=== PATIENT | female | born 1960 | race Hispanic/Latino ===

== ENCOUNTER 2016-10-01 07:38 | Emergency (ER) | payer MEDICAID, MEDICARE ==
--- NOTE | 2016-10-01 08:02 | ED PDOC ---
HPI: SOB/CHF/COPD Time Seen by Provider: 10/01/16 07:44 Chief Complaint (Nursing): Shortness Of Breath History Per: Patient History/Exam Limitations: no limitations Onset/Duration Of Symptoms: Hrs Current Symptoms Are (Timing): Still Present Additional Complaint(s): 56-year-old female, PMHx includes Anemia, Anxiety, Asthma, Bipolar Disorder, Bronchitis, COPD, Depression, HIV, HTN, Paranoia, and Personality Disorder, presents to the emergency department requesting prescription for nebulizer machine. Patient states her mother dropped her nebulizer machine this morning. Patient is speaking in full sentences and has no other complaints at this time. Denies chest pain, cough, palpitations, back pain, dyspnea, swelling in extremities, or any other associated symptoms. No other complaints at this time. Patient has a Hx of multiple visits to ED requesting Rx for Albuterol. Past Medical History Reviewed: Historical Data, Nursing Documentation, Vital Signs Vital Signs: Last Vital Signs Temp 98.2 F 10/01/16 07:46 Pulse 94 H 10/01/16 07:46 Resp 16 10/01/16 08:04 BP 101/60 10/01/16 07:46 Pulse Ox 98 10/01/16 08:12 - Medical History PMH: Anemia, Anxiety, Asthma, Bipolar Disorder, Bronchitis, COPD, Depression, HIV, HTN, Paranoia, Personality Disorder, Seizures - Surgical History Surgical History: Tonsillectomy Denies: Pacemaker - Family History Family History: States: Unknown Family Hx - Immunization History Hx Tetanus Toxoid Vaccination: No Hx Influenza Vaccination: Yes Hx Pneumococcal Vaccination: Yes - Home Medications Home Medications: Ambulatory Orders Medication Instructions Recorded Albuterol/Ipratropium [Duoneb 3 3 ml INH Q12 #0 neb 03/30/16 mg/0.5 mg (3 ml) UD] Emtricitabine/Tenofovir Diso 1 tab PO DAILY #0 tab 03/30/16 [Truvada 200 MG-300 MG] Fluticasone/Salmeterol 250/50 2 puff IH BID #0 puff 03/30/16 [Advair Diskus 250/50] Gabapentin [Neurontin] 600 mg PO TID #0 tab 03/30/16 Albuterol HFA [Ventolin HFA 90 1 puff IH BID PRN #1 unit 12/17/16 mcg/actuation (8 g)] fentaNYL 25 mcg/hr [Duragesic 1 patch TOP DAILY PRN 08/23/16 Patch 25 mcg/hr] Albuterol 0.5% [Albuterol 0.5% 3 ml IH Q4 PRN #60 ml 09/17/16 Inhal Deborah (2.5 mg/0.5 ml) UD] Albuterol HFA [Ventolin HFA 90 1 puff IH ASDIR #1 unit 09/17/16 mcg/actuation (8 g)] Mask, Face [Nebulizer Aerosol Mask 1 dev PO PRN PRN #1 dev 09/17/16 Pediatric] Nebulizer [Mini Plus Nebulizer] 1 each MC ASDIR PRN #1 unit 09/17/16 Albuterol 0.083% [Albuterol 3 ml IH Q8 #1 neb 09/23/16 Sulfate 3 Ml] Non-Formulary 1 ea .ROUTE Q6 #1 ea 09/23/16 Albuterol 0.042% [Albuterol 0.042% 3 ml IH Q6 #1 packet 09/24/16 Inhal Deborah (1.25mg/3ml) UD] Methylprednisolone [Medrol Dose 4 mg PO DAILY #21 mg 09/24/16 Pack (21 tabs)] - Allergies Allergies/Adverse Reactions: Allergies Allergy/AdvReac Type Severity Reaction Status Date / Time Penicillins Allergy pt reports Verified 10/01/16 07:53 seizures Review of Systems ROS Statement: Except As Marked, All Systems Reviewed And Found Negative Constitutional: Negative for: Fever Cardiovascular: Negative for: Chest Pain, Palpitations, Edema, Light Headedness Respiratory: Positive for: Shortness of Breath. Negative for: Cough Gastrointestinal: Negative for: Nausea, Vomiting Musculoskeletal: Negative for: Back Pain Skin: Negative for: Rash Neurological: Negative for: Weakness, Numbness, Headache, Dizziness Physical Exam - Reviewed Nursing Documentation Reviewed: Yes Vital Signs Reviewed: Yes - Physical Exam Appears: Positive for: Non-toxic, No Acute Distress Head Exam: Positive for: ATRAUMATIC, NORMOCEPHALIC Skin: Positive for: Warm, Dry. Negative for: Rash Eye Exam: Positive for: Normal appearance Neck: Positive for: Painless ROM Cardiovascular/Chest: Positive for: Regular Rate, Rhythm Respiratory: Positive for: Normal Breath Sounds, Other (SPEAKING IN FULL SENTENCES.). Negative for: Accessory Muscle Use, Rales, Rhonchi, Wheezing, Respiratory Distress - ECG O2 Sat by Pulse Oximetry: 98 Pulse Ox Interpretation: Normal - Progress ED Course And Treament: 815: Stable. AAOx3. Here for a prescription for a nebulizer. Has no physical complaints. Smiling. Multiple ER visits. Medical Decision Making Medical Decision Making: Prior Visits: Notes and records from previous visits were reviewed. Patient seen in ED on 06/02 for shortness of breath and cough; Patient has been evaluated in ED for same complaint multiple times in the past. Patientd last CXR on 08/26/16 shows COPD w/ no acute disease. Plan: Patient will be discharged home with Rx for Albuterol. Pt is asked to return immediately for any new or worsening symptoms immediately. Patients lungs are CTA B/L, she appears in no distress. Agreeable with plan to discharge. Scribe Attestation: Documented by Ramsey Chatman acting as a scribe for Gavin Damon MD. Provider Attestation: All medical record entries made by the Scribe were at my direction and personally dictated by me. I have reviewed the chart and agree that the record accurately reflects my personal performance of the history, physical exam, medical decision making, and the department course for this patient. I have also personally directed, reviewed, and agree with the discharge instructions and disposition. Disposition - Clinical Impression Clinical Impression: Medication refill - Disposition Referrals: [facility] [Outside] Disposition Time: 08:16 Condition: STABLE Additional Instructions: Return if not better in 3 days. Instructions: Medicine Refill (ED)
[2016-10-01 08:04] VITALS: BP 101/60; PULSE 94; TEMP 98.2; O2SAT 98; BMI 20.9
[2016-10-01 08:07] VITALS: RESP 16
== END 2016-10-01 08:21 | disposition home or self-care (01) ==
LOC: H.ER 07:38
DX: Z76.0 Encounter for issue of repeat prescription (principal); I10 Essential (primary) hypertension; J44.9 Chronic obstructive pulmonary disease, unspecified; Z88.0 Allergy status to penicillin

== ENCOUNTER 2016-12-23 05:25 | Emergency (ER) | payer MEDICARE, MEDICAID ==
[2016-12-23 05:38] VITALS: BMI 23.3
[2016-12-23 05:40] VITALS: BP 111/52; PULSE 127; TEMP 98.1
[2016-12-23] MEDS ORDERED: Albuterol-Ipratrop 3 mg / 0.5 (3 ml) UD INH STA (05:52)
[2016-12-23] MEDS ORDERED: Albuterol-Ipratrop 3 mg / 0.5 (3 ml) UD ONE (05:52)
--- NOTE | 2016-12-23 05:59 | ED PDOC ---
HPI: Asthma Time Seen by Provider: 12/23/16 05:37 Chief Complaint (Nursing): Chest Pain Chief Complaint (Provider): Asthma History Per: Patient History/Exam Limitations: no limitations Onset/Duration Of Symptoms: Hrs (since last night) Current Symptoms Are (Timing): Still Present Associated Symptoms: Cough Additional Complaint(s): 56 year old female presents to ED with complaints of asthma and a past medical history of asthma, HTN, and an extensive psychiatric history. Describes mild cough and wheeze since last night. Confirms that she has an inhaler but requests nebulizer treatment. (-) fever, vomiting, diarrhea, or chest pain. Patient is well known to ED for the same complaint. PCP: Carlo Rogers Past Medical History Reviewed: Historical Data, Nursing Documentation, Vital Signs Vital Signs: Last Vital Signs Temp 98.1 F 12/23/16 05:38 Pulse 127 H 12/23/16 05:38 Resp 17 12/23/16 05:38 BP 111/52 L 12/23/16 05:38 Pulse Ox 98 12/23/16 05:38 - Medical History PMH: Anemia, Anxiety, Asthma, Bipolar Disorder, Bronchitis, COPD, Depression, HIV, HTN, Paranoia, Personality Disorder, Seizures Denies: Atrial Fibrillation, Cardia Arrhythmia, CHF, Diabetes, Emphysema, Hepatitis, Hypercholesterolemia, Mitral Valve Prolapse, Peripheral Edema, Pneumonia, Pulmonary Embolism, Chronic Kidney Disease, Sickle Cell Disease, Sexually Transmitted Disease, Sleep Apnea, TIA - Surgical History Surgical History: Tonsillectomy Denies: No Surg Hx, Pacemaker - Family History Family History: States: Unknown Family Hx - Social History Current smoker - smoking cessation education provided: No Ex-Smoker (has not smoked in the last 12 months): No Alcohol: None Drugs: Denies - Immunization History Hx Tetanus Toxoid Vaccination: No Hx Influenza Vaccination: Yes Hx Pneumococcal Vaccination: Yes - Home Medications Home Medications: Ambulatory Orders Medication Instructions Recorded Albuterol/Ipratropium [Duoneb 3 3 ml INH Q12 #0 neb 03/30/16 mg/0.5 mg (3 ml) UD] Emtricitabine/Tenofovir Diso 1 tab PO DAILY #0 tab 03/30/16 [Truvada 200 MG-300 MG] Fluticasone/Salmeterol 250/50 2 puff IH BID #0 puff 03/30/16 [Advair Diskus 250/50] Gabapentin [Neurontin] 600 mg PO TID #0 tab 03/30/16 Albuterol HFA [Ventolin HFA 90 1 puff IH BID PRN #1 unit 07/02/16 mcg/actuation (8 g)] fentaNYL 25 mcg/hr [Duragesic 1 patch TOP DAILY PRN 08/23/16 Patch 25 mcg/hr] Albuterol 0.5% [Albuterol 0.5% 3 ml IH Q4 PRN #60 ml 09/17/16 Inhal Deborah (2.5 mg/0.5 ml) UD] Albuterol HFA [Ventolin HFA 90 1 puff IH ASDIR #1 unit 09/17/16 mcg/actuation (8 g)] Mask, Face [Nebulizer Aerosol Mask 1 dev PO PRN PRN #1 dev 09/17/16 Pediatric] Nebulizer [Mini Plus Nebulizer] 1 each MC ASDIR PRN #1 unit 09/17/16 Albuterol 0.083% [Albuterol 3 ml IH Q8 #1 neb 09/23/16 Sulfate 3 Ml] Non-Formulary 1 ea .ROUTE Q6 #1 ea 09/23/16 Albuterol 0.042% [Albuterol 0.042% 3 ml IH Q6 #1 packet 09/24/16 Inhal Deborah (1.25mg/3ml) UD] Methylprednisolone [Medrol Dose 4 mg PO DAILY #21 mg 09/24/16 Pack (21 tabs)] - Allergies Allergies/Adverse Reactions: Allergies Allergy/AdvReac Type Severity Reaction Status Date / Time Penicillins Allergy pt reports Verified 12/23/16 05:37 seizures Review of Systems ROS Statement: Except As Marked, All Systems Reviewed And Found Negative Respiratory: Positive for: Cough, Shortness of Breath, Wheezing Physical Exam - Reviewed Nursing Documentation Reviewed: Yes Vital Signs Reviewed: Yes - Physical Exam Appears: Positive for: Non-toxic, No Acute Distress Skin: Positive for: Normal Color, Warm, Dry Eye Exam: Positive for: Normal appearance ENT: Positive for: Normal ENT Inspection Cardiovascular/Chest: Positive for: Regular Rate, Rhythm. Negative for: Murmur Respiratory: Positive for: Normal Breath Sounds. Negative for: Respiratory Distress Extremity: Negative for: Deformity Neurologic/Psych: Positive for: Alert, Oriented. Negative for: Motor/Sensory Deficits - ECG O2 Sat by Pulse Oximetry: 98 (RA) Pulse Ox Interpretation: Normal Medical Decision Making Medical Decision Makin Initial impression: wheeze with normal exam Initial plan: * Duonebs 3mL INH * Peak flow pre/post tx Scribe Attestation: Documented by Yulisa Paredes acting as a scribe for Meño Lazar MD. Scribe Attestation: All medical record entries made by the Scribe were at my direction and personally dictated by me. I have reviewed the chart and agree that the record accurately reflects my personal performance of the history, physical exam, medical decision making, and the department course for this patient. I have also personally directed, reviewed, and agree with the discharge instructions and disposition. Disposition - Clinical Impression Clinical Impression: Asthma - Disposition Referrals: Carlo Rogers APN [Primary Care Provider] - Disposition: Routine/Home Disposition Time: 06:10 Condition: STABLE Instructions: Asthma (ED)
[2016-12-23 06:17] VITALS: RESP 16
[2016-12-23 06:54] VITALS: O2SAT 98
--- NOTE | 2016-12-23 14:38 | CARD ---
APPROVED REPORT EKG Measurement Heart [id number] <Conclusion> Sinus tachycardia Otherwise normal ECG
== END 2016-12-23 06:16 | disposition home or self-care (01) ==
LOC: H.ER 05:25
DX: J45.909 Unspecified asthma, uncomplicated (principal); R06.2 Wheezing

== ENCOUNTER 2016-12-26 08:32 | Emergency (ER) | payer MEDICARE, MEDICAID ==
[2016-12-26 08:35] VITALS: BMI 23.3
[2016-12-26 08:43] VITALS: RESP 20; O2SAT 98
[2016-12-26 09:28] VITALS: BP 128/78; PULSE 78; TEMP 97.5
--- NOTE | 2016-12-26 09:33 | ED PDOC ---
HPI: General Adult Time Seen by Provider: 12/26/16 09:11 Chief Complaint (Nursing): Shortness Of Breath Chief Complaint (Provider): sore throat History Per: Patient History/Exam Limitations: no limitations Onset/Duration Of Symptoms: Days (x 3) Have you had recent travel within the past 21 days to any of the following countries: [place], [place], [place] or [place]?: No Additional Complaint(s): Tanya Kilgore is a 56 year old female, with a previous medical history of schizophrenia and HIV, who presents to the ED with complaints of a sore throat associated with a white coating on her tongue ongoing for 3 days. Patient denies any fevers. She reports pain when swallowing but is tolerating PO intake both solids and liquids. She denies any other medical complaints at this time. PMD: none provided Past Medical History Reviewed: Historical Data, Nursing Documentation, Vital Signs Vital Signs: Last Vital Signs Temp 97.5 F L 12/26/16 09:27 Pulse 78 12/26/16 09:27 Resp 20 12/26/16 09:27 BP 128/78 12/26/16 09:27 Pulse Ox 98 12/26/16 09:36 - Medical History PMH: Anemia, Anxiety, Asthma, Bipolar Disorder, Bronchitis, COPD, Depression, HIV, HTN, Paranoia, Personality Disorder, Seizures Denies: Atrial Fibrillation, Cardia Arrhythmia, CHF, Diabetes, Emphysema, Hepatitis, Hypercholesterolemia, Mitral Valve Prolapse, Peripheral Edema, Pneumonia, Pulmonary Embolism, Chronic Kidney Disease, Sickle Cell Disease, Sexually Transmitted Disease, Sleep Apnea, TIA - Surgical History Surgical History: Tonsillectomy Denies: Pacemaker - Family History Family History: States: Unknown Family Hx - Immunization History Hx Tetanus Toxoid Vaccination: No Hx Influenza Vaccination: Yes Hx Pneumococcal Vaccination: Yes - Home Medications Home Medications: Ambulatory Orders Medication Instructions Recorded Albuterol/Ipratropium [Duoneb 3 3 ml INH Q12 #0 neb 03/30/16 mg/0.5 mg (3 ml) UD] Emtricitabine/Tenofovir Diso 1 tab PO DAILY #0 tab 03/30/16 [Truvada 200 MG-300 MG] Fluticasone/Salmeterol 250/50 2 puff IH BID #0 puff 03/30/16 [Advair Diskus 250/50] Gabapentin [Neurontin] 600 mg PO TID #0 tab 03/30/16 Albuterol HFA [Ventolin HFA 90 1 puff IH BID PRN #1 unit 07/02/16 mcg/actuation (8 g)] fentaNYL 25 mcg/hr [Duragesic 1 patch TOP DAILY PRN 08/23/16 Patch 25 mcg/hr] Albuterol 0.5% [Albuterol 0.5% 3 ml IH Q4 PRN #60 ml 09/17/16 Inhal Deborah (2.5 mg/0.5 ml) UD] Albuterol HFA [Ventolin HFA 90 1 puff IH ASDIR #1 unit 09/17/16 mcg/actuation (8 g)] Mask, Face [Nebulizer Aerosol Mask 1 dev PO PRN PRN #1 dev 09/17/16 Pediatric] Nebulizer [Mini Plus Nebulizer] 1 each MC ASDIR PRN #1 unit 09/17/16 Albuterol 0.083% [Albuterol 3 ml IH Q8 #1 neb 09/23/16 Sulfate 3 Ml] Non-Formulary 1 ea .ROUTE Q6 #1 ea 09/23/16 Albuterol 0.042% [Albuterol 0.042% 3 ml IH Q6 #1 packet 09/24/16 Inhal Deborah (1.25mg/3ml) UD] Methylprednisolone [Medrol Dose 4 mg PO DAILY #21 mg 09/24/16 Pack (21 tabs)] Fluconazole [Diflucan] 100 mg PO DAILY #14 tab 12/26/16 - Allergies Allergies/Adverse Reactions: Allergies Allergy/AdvReac Type Severity Reaction Status Date / Time Penicillins Allergy pt reports Verified 12/26/16 08:41 seizures Review of Systems ROS Statement: Except As Marked, All Systems Reviewed And Found Negative Constitutional: Negative for: Fever ENT: Positive for: Throat Pain, Other (white coating on tongue) Physical Exam - Reviewed Nursing Documentation Reviewed: Yes Vital Signs Reviewed: Yes - Physical Exam Appears: Positive for: Well, Non-toxic, No Acute Distress Skin: Positive for: Normal Color, Warm, Dry ENT: Positive for: Other (white coating on tongue but no on pharynx ). Negative for: Pharyngeal Erythema, Tonsillar Exudate, Tonsillar Swelling Cardiovascular/Chest: Positive for: Regular Rate, Rhythm Respiratory: Positive for: CNT, Normal Breath Sounds Neurologic/Psych: Positive for: Alert, Oriented - ECG O2 Sat by Pulse Oximetry: 98 (RA) Pulse Ox Interpretation: Normal Medical Decision Making Medical Decision Making: Initial Impression: Candidiasis in Mouth Initial Plan: * physical exam * disposition Scribe Attestation: Documented by Karina Roper, acting as a scribe for Demian Knight MD. Provider Scribe Attestation: All medical record entries made by the Scribe were at my direction and personally dictated by me. I have reviewed the chart and agree that the record accurately reflects my personal performance of the history, physical exam, medical decision making, and the department course for this patient. I have also personally directed, reviewed, and agree with the discharge instructions and disposition. Disposition - Clinical Impression Clinical Impression: Candidiasis of mouth - Patient ED Disposition Is Patient to be Admitted: No Counseled Patient/Family Regarding: Diagnosis, Need For Followup, Rx Given - Disposition Referrals: [facility] [Outside] Disposition: Routine/Home Disposition Time: 09:40 Condition: FAIR Prescriptions: Fluconazole [Diflucan] 100 mg PO DAILY #14 tab Instructions: Oral Candidiasis (ED)
== END 2016-12-26 09:28 | disposition home or self-care (01) ==
LOC: H.ER 08:32
DX: B37.0 Candidal stomatitis (principal); B20 Human immunodeficiency virus [HIV] disease; F20.9 Schizophrenia, unspecified

== ENCOUNTER 2017-02-21 12:17 | Inpatient (IN) | payer MEDICARE, MEDICAID ==
[2017-02-21 12:17] VITALS: BMI 23.3
--- NOTE | 2017-02-21 12:39 | ED PDOC ---
HPI: Psych/Substance Abuse Time Seen by Provider: 02/21/17 12:28 Chief Complaint (Nursing): Psychiatric Evaluation Chief Complaint (Provider): Psychiatric Evaluation History Per: Patient History/Exam Limitations: no limitations Onset/Duration Of Symptoms: Days (x2) Associated Symptoms: Depression, Suicidal Thoughts, Suicidal Plan (jump in the river) Additional Complaint(s): Tanya Kilgore is a 57 year old female, with a past medical history of depression , who presents to the emergency department complaining of suicidal ideation. Patient states feeling depressed and wanting to jump in the river. She reports having similar symptoms in the past and was recently detoxed and discharged from [facility]. She denies homicidal ideations and hallucinations. PMD: Carlo Rogers Past Medical History Reviewed: Historical Data, Nursing Documentation, Vital Signs Vital Signs: Last Vital Signs Temp 97 F L 02/21/17 12:22 Pulse 98 H 02/21/17 12:22 Resp 18 02/21/17 12:22 BP 128/84 02/21/17 12:22 Pulse Ox 99 02/21/17 12:22 - Medical History PMH: Anemia, Anxiety, Asthma, Bipolar Disorder, Bronchitis, COPD, Depression, HIV, HTN, Mitral Valve Prolapse, Paranoia, Personality Disorder, Seizures ( withdral induced) Denies: Atrial Fibrillation, Cardia Arrhythmia, CHF, Diabetes, Emphysema, Hepatitis, Hypercholesterolemia, Peripheral Edema, Pneumonia, Pulmonary Embolism , Chronic Kidney Disease, Sickle Cell Disease, Sexually Transmitted Disease, Sleep Apnea, TIA - Surgical History Surgical History: Tonsillectomy Denies: Pacemaker - Family History Family History: States: Unknown Family Hx - Immunization History Hx Tetanus Toxoid Vaccination: Yes Hx Influenza Vaccination: Yes Hx Pneumococcal Vaccination: Yes - Home Medications Home Medications: Ambulatory Orders Medication Instructions Recorded QUEtiapine [SEROquel] 300 mg PO HS 02/11/17 QUEtiapine [Seroquel] 100 mg PO DAILY #30 tab 02/21/17 QUEtiapine [Seroquel] 200 mg PO HS #30 tab 02/21/17 Sertraline [Zoloft] 100 mg PO DAILY #30 tab 02/21/17 - Allergies Allergies/Adverse Reactions: Allergies Allergy/AdvReac Type Severity Reaction Status Date / Time Penicillins Allergy pt reports Verified 02/11/17 12:23 seizures Review of Systems ROS Statement: Except As Marked, All Systems Reviewed And Found Negative Psych: Positive for: Depression, Suicidal ideation (Planned to jump in the river ). Negative for: Other (Homicidal ideation and hallucination) Physical Exam - Reviewed Nursing Documentation Reviewed: Yes Vital Signs Reviewed: Yes - Physical Exam Appears: Positive for: Well, Non-toxic, No Acute Distress Head Exam: Positive for: ATRAUMATIC, NORMAL INSPECTION, NORMOCEPHALIC Skin: Positive for: Normal Color, Warm, Dry Eye Exam: Positive for: EOMI, Normal appearance, PERRL ENT: Positive for: Normal ENT Inspection Cardiovascular/Chest: Positive for: Regular Rate, Rhythm Respiratory: Positive for: Normal Breath Sounds. Negative for: Respiratory Distress Gastrointestinal/Abdominal: Positive for: Normal Exam, Bowel Sounds, Soft Extremity: Positive for: Normal ROM Neurologic/Psych: Positive for: Alert, Oriented - Laboratory Results Result Diagrams: 02/21/17 15:15 02/21/17 15:15 - ECG O2 Sat by Pulse Oximetry: 99 (RA) Pulse Ox Interpretation: Normal Medical Decision Making Medical Decision Making: Initial Impression: Psychiatric Evaluation Initial Plan: --Crisis Evaluation --1:1 Obs for Suicide precaution --reevaluation pt will be admitted for depression under MD Etienne. Scribe Attestation: Documented by Wilder Chen, acting as a scribe for Alba SEGOVIA. Provider Scribe Attestation: All medical record entries made by the Scribe were at my direction and personally dictated by me. I have reviewed the chart and agree that the record accurately reflects my personal performance of the history, physical exam, medical decision making, and the department course for this patient. I have also personally directed, reviewed, and agree with the discharge instructions and disposition. Disposition - Clinical Impression Clinical Impression: Depression - Patient ED Disposition Is Patient to be Admitted: Yes - Disposition Disposition Time: 15:54 Condition: STABLE Forms: [employer]) - Pt Status Changed To: Hospital Disposition Of: Inpatient - Admit Certification Admit to Inpatient:: After my assessment, the patient will require hospitalization for at least two midnights. This is because of the severity of symptoms shown, intensity of services needed, and/or the medical risk in this patient being treated as an outpatient.
[2017-02-21 14:04] LABS: RBC URINE 6 /hpf (0-3); URINE BACTERIA RARE (<OCC); URINE BILIRUBIN NEGATIVE (NEGATIVE); URINE BLOOD NEGATIVE (NEGATIVE); URINE COLOR YELLOW (YELLOW); URINE GLUCOSE (UA) NEG (Normal); URINE KETONE NEGATIVE (NEGATIVE); URINE LEUKOCYTE ESTERASE TRACE Leu/uL (Negative); URINE PROTEIN NEGATIVE (NEGATIVE); URINE UROBILINOGEN 0.2-1.0 mg/dL (0.2-1.0); WBC URINE 4 /hpf (0-5)
[2017-02-21 15:34] LABS: EOS % 0.7 % (0.0-4.0); HEMATOCRIT 38.8 % (34.0-47.0); LYMPH # 1.1 K/uL (1.0-4.3); LYMPH % 28.8 % (20.0-40.0); MEAN CORPUSCULAR HEMOGLOBIN 28.1 pg (27.0-31.0); MEAN CORPUSCULAR HGB CONC 33.3 g/dL (33.0-37.0); MEAN PLATELET VOLUME 10.1 fl (7.2-11.7); MONO # 0.5 K/uL (0.0-0.8); NEUT # 2.3 K/uL (1.8-7.0); NEUT % 57.5 % (50.0-75.0); NRBC % 0.3 % (0.0-0.0); RED CELL DISTRIBUTION WIDTH 15.9 % (11.5-14.5); WHITE BLOOD COUNT 3.9 K/uL (4.8-10.8)
[2017-02-21 15:36] LABS: ALB/GLOB RATIO 0.9 (1.0-2.1); ALCOHOL SERUM < 10 mg/dl (0-10); ALKALINE PHOSPHATASE 78 U/L (38-126); ALT/SGPT 49 U/L (9-52); AST/SGOT 38 U/L (14-36); BILIRUBIN,TOTAL 0.3 mg/dl (0.2-1.3); BLOOD UREA NITROGEN 18 mg/dl (7-17); CALCIUM 9.3 mg/dL (8.4-10.2); CARBON DIOXIDE 28 mmol/L (22-30); CHLORIDE 106 mmol/L (98-107); GFR AFRICAN-AMERICAN > 60; GLUCOSE,RANDOM 91 mg/dL (65-105); MEAN CELL VOLUME 84.4 fl (81.0-99.0); POTASSIUM 4.4 MMOL/L (3.6-5.0); SODIUM 142 mmol/l (132-148); TOTAL PROTEIN 8.1 G/DL (6.3-8.2)
[2017-02-21] MEDS ORDERED: Magnesium Hydroxide Susp 30 ml UD PO PRN (18:22)
[2017-02-21] MEDS ORDERED: DiphenhydrAMINE 50 mg/ml Inj IM PRN (18:29)
--- NOTE | 2017-02-21 20:03 | PCM.BM ---
<Raman Toledo - Last Filed: 02/21/17 20:01> Treatment Plan Problems - Problems identified on initial assessmt Hopelessness/Helplessness Date Initiated: 02/21/17 Time Initiated: 19:45 Assessment reference: NA Status: Active Treatment assets and liabiliti Patient Assests: adapts well, cooperative, self-reliant, good support system, negotiates basic needs Patient Liabilities: substance abuse, medical problems - Milieu Protocol Maintain good personal hygiene: daily Encourage regular showers, daily Remind patient to perform daily oral care, daily Assist patient to perform ADL's Maintain personal safety: every shift Educate patient to report safety concerns to staff, every shift Monitor environment for contraband/sharps Medication safety: Monitor for expected outcome, potential side effects: every shift, Assess barriers to learning: every shift, Assess readiness for medication education: every shift Discharge/Continuing Care - Education Needs Education Needs: Patient Medication, Patient Diagnosis/Disease Process, Patient Coping Skills, Patient Activities of Daily Living, Patient Health Practices/ Safety, Patient Personal Hygiene/Grooming - Discharge Discharge Criteria: Free of Suicidal thoughts, Ability to care for self <JonoChrissie - Last Filed: 02/23/17 11:19> Treatment Plan Problems - Problems identified on initial assessmt Hopelessness/Helplessness Assessment reference: NA Status: Active Priority: 1 Suicidal Ideations Date Initiated: 02/22/17 Time Initiated: 11:00 Assessment reference: SW Status: Active Priority: 2 Treatment assets and liabiliti Patient Assests: adapts well, cooperative, self-reliant, good support system, negotiates basic needs, strong gregory Patient Liabilities: substance abuse, medical problems Family Contact Family involvement: Family/SO is involved Family contact: Patient agrees to contact Family contact name: Carlo(father)([phone]) Family contacted how many times per week?: 1 Family contact comment: Patient identifies parents as primary supports. Patient has provided consent for parents. Bilingual Hr Generalist placed call to patients father to provide clinical updates regarding progress on 3NP, discharge planning and aftercare. Bilingual Hr Generalist unable to leave voicemail and will make call at later time. - Outside Agency Agency 1 Care involvment: Information-sharing, Other (Patient currently requesting inpatient rehab referrals. Patient expressed understanding that a bed is not guaranteed and that alternate [facility]I referrals might be necessary at discharge.) Agency contact name: Patient has significant hx of partial hospital with [facility] and [facility] Maureen Avila. Patient currently not welcome to return to [facility] secondary to hx of noncompliance. Patient must be referred to [facility] by [facility] Maureen Avila after complying for 1 month and having a clean urine 3 consecutive times. Agency contact number: [phone] Discharge/Continuing Care - Education Needs Education Needs: Family Medication, Family Community resources, Patient Medication, Patient Coping Skills, Patient Anger Management skills, Patient Community resources - Discharge Discharge Criteria: Tolerates medication w/o severe side effects, Free of Suicidal thoughts, Free of Homicidal thoughts, Free of agitation, Normal sleep pattern, Ability to care for self
--- NOTE | 2017-02-21 20:16 | CP.PCM.CON ---
History of Present Illness - History of Present Illness History of Present Illness: 57 y/o F with PMH including HTN, Intermittent Asthma, HIV (last CD4 count 469 on 08/18/16), Chronic HCV admitted to inpatient psychiatric unit for depression and suicidal ideation. Patient states she was last seen by her PCP approximately 5 months ago. Over the last 3 months patient reports not taking any of her prescribed HIV, HTN or Asthma medications. She reports stopping her BP meds due to persistent systolic BP measurements in the 90s. She also reports no need for her scheduled inhaler or rescue inhaler during this period. Patient currently denies fevers, chills, chest pain, sob, abdominal pain, nausea or vomiting. 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 PMD: [facility] Review of Systems - Review of Systems All systems: reviewed and no additional remarkable complaints except Past Patient History - Infectious Disease Hx of Infectious Diseases: None - Past Medical History & Family History Past Medical History?: Yes - Past Social History Smoking Status: Light Smoker < 10 Cigarettes Daily Alcohol: None Drugs: Opiates (Recently completed detox) - CARDIAC Hx Atrial Fibrillation: No Hx Cardia Arrhythmia: No Hx Congestive Heart Failure: No Hx Hypercholesterolemia: No Hx Hypertension: Yes Hx Mitral Valve Prolapse: Yes Hx Pacemaker: No Hx Peripheral Edema: No - PULMONARY Hx Asthma: Yes Hx Bronchitis: Yes Hx Chronic Obstructive Pulmonary Disease (COPD): Yes Hx Emphysema: No Hx Pneumonia: No Hx Pulmonary Embolism: No Hx Sleep Apnea: No - NEUROLOGICAL Hx Seizures: Yes (withdral induced) Hx Transient Ischemic Attacks (TIA): No - HEENT Hx HEENT Problems: No - RENAL Hx Chronic Kidney Disease: No - ENDOCRINE/METABOLIC Hx Endocrine Disorders: No - HEMATOLOGICAL/ONCOLOGICAL Hx Anemia: Yes Hx Hepatitis C: Yes Hx Human Immunodeficiency Virus (HIV): Yes Hx Sickle Cell Disease: No - INTEGUMENTARY Hx Dermatological Problems: No - MUSCULOSKELETAL/RHEUMATOLOGICAL Hx Musculoskeletal Disorders: No - GASTROINTESTINAL Hx Gastrointestinal Disorders: No - GENITOURINARY/GYNECOLOGICAL Hx Sexually Transmitted Disorders: No - PSYCHIATRIC Hx Depression: Yes Hx Substance Use: Yes (heroin) - SURGICAL HISTORY Hx Tonsillectomy: Yes - ANESTHESIA Hx Anesthesia: Yes Hx Anesthesia Reactions: No Meds Allergies/Adverse Reactions: Allergies Allergy/AdvReac Type Severity Reaction Status Date / Time Penicillins Allergy pt reports Verified 02/11/17 12:23 seizures - Medications Medications: Current Medications Albuterol (Ventolin Hfa 90 Mcg/Actuation (8 G)) 2 puff IH Q4H PRN PRN Reason: Shortness of Breath Diphenhydramine HCl (Benadryl) 50 mg PO Q6 PRN PRN Reason: Extrapyramidal Symptoms Diphenhydramine HCl (Benadryl) 50 mg IM Q6 PRN PRN Reason: Agitation Gabapentin (Neurontin) 100 mg PO TID FAY Haloperidol (Haldol) 5 mg PO Q4 PRN PRN Reason: Agitation Haloperidol Lactate (Haldol) 5 mg IM Q4 PRN PRN Reason: Agitation, Unable to Take PO Ibuprofen (Motrin Tab) 600 mg PO Q6 PRN PRN Reason: Pain, moderate (4-7) Lorazepam (Ativan) 2 mg PO Q4 PRN PRN Reason: Anxiety/Agitation Lorazepam (Ativan) 2 mg IM Q6 PRN PRN Reason: Agitation Magnesium Hydroxide (Milk Of Magnesia) 30 ml PO HS PRN PRN Reason: Constipation Quetiapine Fumarate (Seroquel) 300 mg PO HS FAY Quetiapine Fumarate (Seroquel) 100 mg PO BID FAY Sertraline HCl (Zoloft) 50 mg PO DAILY FAY Valsartan (Diovan) 80 mg PO DAILY FAY Physical Exam - Constitutional Appears: Non-toxic, No Acute Distress - Head Exam Head Exam: ATRAUMATIC, NORMAL INSPECTION, NORMOCEPHALIC - Eye Exam Eye Exam: EOMI, PERRL - ENT Exam ENT Exam: Mucous Membranes Moist - Respiratory Exam Respiratory Exam: Clear to Auscultation Bilateral, NORMAL BREATHING PATTERN. absent: Rales, Rhonchi, Wheezes, Respiratory Distress - Cardiovascular Exam Cardiovascular Exam: REGULAR RHYTHM, RRR, +S1, +S2 - GI/Abdominal Exam GI & Abdominal Exam: Normal Bowel Sounds, Soft. absent: Distended, Guarding, Rebound, Tenderness - Extremities Exam Extremities exam: Positive for: normal capillary refill. Negative for: calf tenderness, pedal edema - Neurological Exam Neurological exam: Alert, CN II-XII Intact, Oriented x3 - Psychiatric Exam Psychiatric exam: Depressed - Skin Skin Exam: Dry, Warm Additional comments: Scattered excoriations present on trunk and extremities Results - Vital Signs Recent Vital Signs: Last Vital Signs Temp 98.7 F 02/21/17 16:34 Pulse 63 02/21/17 16:56 Resp 20 02/21/17 16:56 BP 160/92 H 02/21/17 17:53 Pulse Ox 97 02/21/17 16:28 - Labs Result Diagrams: 02/21/17 15:15 02/21/17 15:15 Assessment & Plan - Assessment and Plan (Free Text) Assessment: 57 y/o F with PMH including HTN, Intermittent Asthma, HIV (last CD4 count 469 on 08/18/16), Chronic HCV admitted to inpatient psychiatric unit for depression and suicidal ideation. Plan: HTN -Uncontrolled at this time -Patient was taking Diovan/HCT 80/12.5mg daily but d/c 3 months ago -Will resume Diovan 80mg and monitor BP -Plan to add HCT 12.5mg daily if needed Intermittent Asthma -Currently well controlled -Has not been taking Advair 250/50 and has not needed her rescue inhaler -Hold Advair -Albuterol PRN HIV (last CD4 count 469 on 08/18/16) -Patient has not been taking medications since at least 3 months -Was taking Truvada daily, will hold for now -Repeat CD4 count and viral load Chronic HCV Depression -Treatment as per psychiatry
[2017-02-21 20:48] LABS: T4 6.45 ug/dl (5.5-11.0)
[2017-02-21 21:02] LABS: THYROID STIMULATING HORMONE 2.8 mIU/ML (0.46-4.68)
--- NOTE | 2017-02-22 10:45 | PCM.PSYCH ---
Initial Psychiatric Evaluation - Initial Psychiatric Evaluation Type of Admission: Voluntary Legal Status: Capacity Chief Complaint (in patient's own words): i am depressed Patient's Reaction to Hospitalization: cooperative History of Present Illness and Precipitating Events: pt discharged from [facility] in the morning and presented at [facility] er later same day. she states she was not sleeping while at the hospital and that she is depressed. she was having thoughts to harm herself. she states she was using 3-4 bags a day of heroin prior to her admission to the [facility]. her urine is positive for methadone. she is denying any withdrawal symptoms. she reports that she needs help with depression and with sleeping. she expresses that she wants to return to the [facility]. Current Medications: Active Medications Generic Name Dose Route Start Last Admin Trade Name Freq PRN Reason Stop Dose Admin Albuterol 2 puff 02/21/17 19:08 Ventolin Hfa 90 Mcg/Actuation (8 G) IH Q4H PRN Shortness of Breath Diphenhydramine HCl 50 mg 02/21/17 18:22 Benadryl PO Q6 PRN Extrapyramidal Symptoms Diphenhydramine HCl 50 mg 02/21/17 18:29 Benadryl IM Q6 PRN Agitation Gabapentin 100 mg 02/22/17 09:00 02/22/17 08:18 Neurontin PO 100 mg TID FAY Administration Haloperidol 5 mg 02/21/17 18:22 Haldol PO Q4 PRN Agitation Haloperidol Lactate 5 mg 02/21/17 18:22 Haldol IM Q4 PRN Agitation, Unable to Take PO Ibuprofen 600 mg 02/21/17 18:31 02/22/17 06:25 Motrin Tab PO 600 mg Q6 PRN Administration Pain, moderate (4-7) Lorazepam 2 mg 02/21/17 18:22 Ativan PO Q4 PRN Anxiety/Agitation Lorazepam 2 mg 02/21/17 18:27 Ativan IM Q6 PRN Agitation Magnesium Hydroxide 30 ml 02/21/17 18:22 Milk Of Magnesia PO HS PRN Constipation Quetiapine Fumarate 300 mg 02/21/17 22:00 02/21/17 21:15 Seroquel PO 300 mg HS FAY Administration Quetiapine Fumarate 100 mg 02/21/17 18:45 02/22/17 08:18 Seroquel PO 100 mg BID FAY Administration Sertraline HCl 50 mg 02/22/17 09:00 02/22/17 08:18 Zoloft PO 50 mg DAILY FAY Administration Valsartan 80 mg 02/21/17 19:12 02/21/17 20:47 Diovan PO 80 mg DAILY FAY Administration Zolpidem Tartrate 5 mg 02/22/17 10:37 Ambien PO HS PRN Insomnia Past Psychiatric History - Past Psychiatric History Previous Treatment History: Inpatient Prior Professional Help: multiple admissions At [facility]: [facility] discharged 8.03.02 History of Abuse: history of trauma History of ETOH/Drug Use: iv heroin abuse. last use over 9 days ago. History of Family Illness: denies Pertinent Medical Hx (Current Medical&Sleep Prob, Allergies): Allergies Allergy/AdvReac Type Severity Reaction Status Date / Time Penicillins Allergy pt reports Verified 02/11/17 12:23 seizures Albuterol HFA [Ventolin HFA 90 mcg/actuation (8 g)] 2 puff IH Q4H PRN 02/21/17 Benztropine [Cogentin] 1 mg PO QAM 02/21/17 Divalproex [Depakote ER] 500 mg PO BID 02/21/17 Emtricitabine/Tenofovir Diso [Truvada 200 MG-300 MG] 1 tab PO DAILY 02/21/17 Fluticasone/Salmeterol 250/50 [Advair Diskus 250/50] 1 puff IH Q12H 02/21/17 Nevirapine [Viramune] 200 mg PO BID 02/21/17 QUEtiapine [Seroquel] 100 mg PO DAILY #30 tab 02/21/17 QUEtiapine [Seroquel] 200 mg PO HS #30 tab 02/21/17 Sertraline [Zoloft] 100 mg PO DAILY #30 tab 02/21/17 Valsartan/Hydrochlorothiazide [Valsartan-Hctz 80-12.5 mg Tab] 1 tab PO DAILY 03/02 pt with hiv, hep c Review of Systems - Psychiatric Psychiatric: As Per HPI Mental Status Examination - Personal Presentation Personal Presentation: Looks older than stated age - Affect Affect: Depressed - Motor Activity Motor Activity: Calm - Reliability in Providing Information Reliability in Providing Information: Fair - Speech Speech: Organized - Mood Mood: Depressed - Formal Thought Process Formal Thought Process: No Impairment - Obsessions/Compulsions Obsessions: No Compulsions: No - Cognitive Functions Orientation: Person, Place, Situation, Time Sensorium: Alert Attention/Concentration: Attentive Abstract Thinking: [place] Estimate of Intelligence: Average Judgement: Intact, as evidence by: Insight regarding need for hospitalization Memory: Recent intact, as evidence by: Ability to recall events of the day, Remote intact, as evidenced by: Abilit to recall sig. life events - Risk Risk: Suicidal (reports suicidal thoughts. denies any intent), Withdrawal, Diminished functioning - Strength & Assets Inventory Strength & Assets Inventory: Intelligence, Family support - Limitations Limitations: Other (medical issues) DSM 5 DX - DSM 5 DSM 5 Diagnosis: opioid dependence bipolar disorder, depressed - Recommended/Plan of Treatment Treatment Recommendations and Plan of Treatment: admit to [facility] for safety and observation gather collateral information provide supportive therapy adjust medications- will restart home meds disposition planning hospitalist consult Projected ELOS: 5-7 days Prognosis: fair - Smoking Cessation Smoking Cessation Initiated: No
[2017-02-23] MEDS ORDERED: Fluticasone-Salmeterol 250-50mcg Diskus IH SCH (00:15)
[2017-02-23] MEDS: Emtricitabine-Tenofovir 200 mg-300 mg Tab PO SCH (08:50)
--- NOTE | 2017-02-23 09:25 | CP.PCM.PN ---
Subjective - Date & Time of Evaluation Date of Evaluation: 02/23/17 Time of Evaluation: 08:00 - Subjective Subjective: Pt. seen in psych [facility] sitting in [facility] area examined in her room. Pt. with no complaints at this time. Overnight uneventful. On ROS, pt. denies any headache, chest pain, abdominal pain, nausea, vomiting, diarrhea, joint pain, or limb pain. Objective - Vital Signs/Intake and Output Vital Signs (last 24 hours): Temp Pulse Resp BP Pulse Ox 97.2 F L 94 H 20 106/75 97 02/23/17 09:11 02/23/17 09:11 02/23/17 09:11 02/23/17 09:11 02/21/17 16:28 - Medications Medications: Current Medications Albuterol (Ventolin Hfa 90 Mcg/Actuation (8 G)) 2 puff IH Q4H PRN PRN Reason: Shortness of Breath Diphenhydramine HCl (Benadryl) 50 mg PO Q6 PRN PRN Reason: Extrapyramidal Symptoms Diphenhydramine HCl (Benadryl) 50 mg IM Q6 PRN PRN Reason: Agitation Emtricitabine/Tenofovir (Truvada 200 Mg-300 Mg) 1 tab PO DAILY [facility] Last Admin: 02/23/17 08:50 Dose: 1 tab Gabapentin (Neurontin) 100 mg PO TID [facility] Last Admin: 02/23/17 08:50 Dose: 100 mg Haloperidol (Haldol) 5 mg PO Q4 PRN PRN Reason: Agitation Haloperidol Lactate (Haldol) 5 mg IM Q4 PRN PRN Reason: Agitation, Unable to Take PO Ibuprofen (Motrin Tab) 600 mg PO Q6 PRN PRN Reason: Pain, moderate (4-7) Last Admin: 02/23/17 06:42 Dose: 600 mg Lorazepam (Ativan) 2 mg PO Q4 PRN PRN Reason: Anxiety/Agitation Lorazepam (Ativan) 2 mg IM Q6 PRN PRN Reason: Agitation Magnesium Hydroxide (Milk Of Magnesia) 30 ml PO HS PRN PRN Reason: Constipation Quetiapine Fumarate (Seroquel) 300 mg PO HS [facility] Last Admin: 02/22/17 21:29 Dose: 300 mg Quetiapine Fumarate (Seroquel) 100 mg PO BID [facility] Last Admin: 02/23/17 08:52 Dose: 100 mg Fluticasone/Salmeterol (Advair Diskus 250/50) 1 puff IH Q12H [facility] Last Admin: 02/23/17 00:15 Dose: Not Given Sertraline HCl (Zoloft) 50 mg PO DAILY [facility] Last Admin: 02/23/17 08:51 Dose: 50 mg Valsartan (Diovan) 80 mg PO DAILY [facility] Last Admin: 02/23/17 08:50 Dose: 80 mg Zolpidem Tartrate (Ambien) 5 mg PO HS PRN PRN Reason: Insomnia Last Admin: 02/22/17 21:29 Dose: 5 mg - Constitutional Appears: Non-toxic, No Acute Distress - Eye Exam Eye Exam: absent: Scleral icterus - ENT Exam ENT Exam: Mucous Membranes Moist - Neck Exam Neck Exam: Full ROM - Respiratory Exam Respiratory Exam: Clear to Ausculation Bilateral, NORMAL BREATHING PATTERN - Cardiovascular Exam Cardiovascular Exam: REGULAR RHYTHM, +S1, +S2 - GI/Abdominal Exam GI & Abdominal Exam: Soft. absent: Tenderness - Extremities Exam Extremities Exam: Normal Inspection. absent: Tenderness - Neurological Exam Neurological Exam: Alert, Awake, Oriented x3 Assessment and Plan - Assessment and Plan (Free Text) Assessment: Assessment: 57 y/o F with PMH including HTN, Intermittent Asthma, HIV (last CD4 count 469 on 08/18/16), Chronic HCV admitted to inpatient psychiatric unit for depression and suicidal ideation. Plan: Depression -Treatment as per psychiatry HTN -Continue Diovan 80mg and monitor BP -Hold HCT 12.5mg daily if needed Intermittent Asthma- Well controlled -Hold Advair -Albuterol PRN HIV- CD4 count 233 on 02/22/17 -Patient has not been taking medications since at least 3 months -Resume Truvada daily Chronic HCV- AST 38 mild elevation - Monitor LFTs Diet - GI diet DVT prophylaxis - ambulate
--- NOTE | 2017-02-23 09:53 | PCM.PYCHPN ---
Psychiatric Progress Note - Psychiatric Progress Note Patient seen today, length of contact: discussed with team Patient Chief Complaint: i have leg pain Problems Identified/Issues Discussed: pt with good sleep. she is c/o neuropathic pain in her legs. she is reporting neurontin doesn't work. she is calm and thoughts are organized. Medication Change: Yes Medical Record Reviewed: Yes Mental Status Examination - Cognitive Function Orientation: Person, Place, Situation, Time Memory: Intact Attention: WNL Concentration: WNL Association: WNL Fund of Knowledge: WNL Decription of patient's judgement and insights: fair i/j - Mood Mood: Depressed - Affect Affect: Blunted, Depressed - Speech Speech: Appropriate - Formal Thought Process Formal Thought Process: No Impairment - Suicidal Ideation Suicidal Ideation: No - Homicidal Ideation Homicidal Ideation: No Goal/Treatment Plan - Goal/Treatment Plan Need for Continued Stay: Remain at risks for inpatient hospitalization, Discharge may exacerbated symptoms Progress Toward Problem(s) and Goals/Treatment Plan: bipolar disorder continue current medications increase neurontin disposition planning Estimated Date of D/C: 02/28/17
[2017-02-24] MEDS: Emtricitabine-Tenofovir 200 mg-300 mg Tab PO SCH (08:43)
[2017-02-24] MEDS: Albuterol HFA 90 mcg/actuation (8 g) IH PRN (08:45)
--- NOTE | 2017-02-24 12:12 | PCM.PYCHPN ---
Psychiatric Progress Note - Psychiatric Progress Note Patient seen today, length of contact: discussed with team Patient Chief Complaint: i feel okay Problems Identified/Issues Discussed: pt with good sleep. she leg pain improving. she is tolerating increase in neurontin. she is calm and thoughts are organized. Medication Change: No Medical Record Reviewed: Yes Mental Status Examination - Cognitive Function Orientation: Person, Place, Situation, Time Memory: Intact Attention: WNL Concentration: WNL Association: WNL Fund of Knowledge: [facility] Decription of patient's judgement and insights: fair i/j - Mood Mood: Depressed - Affect Affect: Blunted, Depressed - Speech Speech: Appropriate - Formal Thought Process Formal Thought Process: No Impairment - Suicidal Ideation Suicidal Ideation: No - Homicidal Ideation Homicidal Ideation: No Goal/Treatment Plan - Goal/Treatment Plan Need for Continued Stay: Remain at risks for inpatient hospitalization, Discharge may exacerbated symptoms Progress Toward Problem(s) and Goals/Treatment Plan: bipolar disorder continue current medications increase neurontin disposition planning- refer to inpt rehab Estimated Date of D/C: 02/28/17
[2017-02-25] MEDS: Emtricitabine-Tenofovir 200 mg-300 mg Tab PO SCH (08:43)
--- NOTE | 2017-02-25 11:28 | PCM.PYCHPN ---
Psychiatric Progress Note - Psychiatric Progress Note Patient seen today, length of contact: discussed with team Patient Chief Complaint: i am doing better Problems Identified/Issues Discussed: pt continues to have improved mood and is in good behavioral control. she is denying medication side effects. Medication Change: No Medical Record Reviewed: Yes Mental Status Examination - Cognitive Function Orientation: Person, Place, Situation, Time Memory: Intact Attention: WNL Concentration: WNL Association: WNL Fund of Knowledge: WNL Decription of patient's judgement and insights: fair i/j - Mood Mood: Depressed - Affect Affect: Blunted, Depressed - Speech Speech: Appropriate - Formal Thought Process Formal Thought Process: No Impairment - Suicidal Ideation Suicidal Ideation: No - Homicidal Ideation Homicidal Ideation: No Goal/Treatment Plan - Goal/Treatment Plan Need for Continued Stay: Remain at risks for inpatient hospitalization, Discharge may exacerbated symptoms Progress Toward Problem(s) and Goals/Treatment Plan: bipolar disorder continue current medications continue neurontin disposition planning- refer to in rehab Estimated Date of D/C: 02/28/17
[2017-02-26] MEDS: Emtricitabine-Tenofovir 200 mg-300 mg Tab PO SCH (09:04)
--- NOTE | 2017-02-26 13:08 | PCM.PYCHPN ---
Psychiatric Progress Note - Psychiatric Progress Note Patient seen today, length of contact: discussed with team Patient Chief Complaint: i am good Problems Identified/Issues Discussed: pt continues to have stable mood and is in good behavioral control. she is denying medication side effects. Medication Change: No Medical Record Reviewed: Yes Mental Status Examination - Cognitive Function Orientation: Person, Place, Situation, Time Memory: Intact Attention: WNL Concentration: WNL Association: WNL Fund of Knowledge: WNL Decription of patient's judgement and insights: fair i/j - Mood Mood: Depressed - Affect Affect: Blunted, Depressed - Speech Speech: Appropriate - Formal Thought Process Formal Thought Process: No Impairment - Suicidal Ideation Suicidal Ideation: No - Homicidal Ideation Homicidal Ideation: No Goal/Treatment Plan - Goal/Treatment Plan Need for Continued Stay: Remain at risks for inpatient hospitalization, Discharge may exacerbated symptoms Progress Toward Problem(s) and Goals/Treatment Plan: bipolar disorder opioid dependence continue current medications continue neurontin disposition planning- refer to in rehab Estimated Date of D/C: 02/28/17
[2017-02-27] MEDS: Emtricitabine-Tenofovir 200 mg-300 mg Tab PO SCH (08:16)
--- NOTE | 2017-02-27 14:36 | PCM.PYCHPN ---
Psychiatric Progress Note - Psychiatric Progress Note Patient seen today, length of contact: discussed with team Patient Chief Complaint: i am anxious Problems Identified/Issues Discussed: pt continues to have stable mood and is in good behavioral control despite c/o anxiety. she is denying medication side effects. states ambien is helping her sleep, but still is asking if higher dose is possible. she is willing to be referred to rehabs. Medication Change: No Medical Record Reviewed: Yes Mental Status Examination - Cognitive Function Orientation: Person, Place, Situation, Time Memory: Intact Attention: WNL Concentration: WNL Association: WNL Fund of Knowledge: WN Decription of patient's judgement and insights: fair i/j - Mood Mood: Depressed - Affect Affect: Blunted, Depressed - Speech Speech: Appropriate - Formal Thought Process Formal Thought Process: No Impairment - Suicidal Ideation Suicidal Ideation: No - Homicidal Ideation Homicidal Ideation: No Goal/Treatment Plan - Goal/Treatment Plan Need for Continued Stay: Remain at risks for inpatient hospitalization, Discharge may exacerbated symptoms Progress Toward Problem(s) and Goals/Treatment Plan: bipolar disorder opioid dependence continue current medications continue neurontin- incrased dose yesterday, have increased zoloft also disposition planning- refer to inpt rehab Estimated Date of D/C: 02/28/17
[2017-02-28] MEDS: Emtricitabine-Tenofovir 200 mg-300 mg Tab PO SCH (08:17)
[2017-02-28] MEDS: Fluticasone-Salmeterol 250-50mcg Diskus IH SCH ×2 (08:17→21:10)
[2017-02-28] MEDS: Albuterol HFA 90 mcg/actuation (8 g) IH PRN ×2 (08:49→13:48)
--- NOTE | 2017-02-28 09:34 | CP.PCM.PN ---
Subjective - Date & Time of Evaluation Date of Evaluation: 02/28/17 Time of Evaluation: 08:30 - Subjective Subjective: Pt. seen today in [facility] getting her vitals taken. Pt. in no distress at this time. On ROS, Pt. denies any headache, chest pain, shortness of breath, abdominal pain, fever, chills, nausea, vomiting, or diarrhea. Objective - Vital Signs/Intake and Output Vital Signs (last 24 hours): Temp Pulse Resp BP Pulse Ox 97.3 F L 104 H 18 121/70 97 02/27/17 17:00 02/27/17 17:00 02/27/17 17:00 02/27/17 17:00 02/21/17 16:28 - Medications Medications: Current Medications Albuterol (Ventolin Hfa 90 Mcg/Actuation (8 G)) 2 puff IH Q4H PRN PRN Reason: Shortness of Breath Last Admin: 02/28/17 08:49 Dose: 2 puff Diphenhydramine HCl (Benadryl) 50 mg PO Q6 PRN PRN Reason: Extrapyramidal Symptoms Diphenhydramine HCl (Benadryl) 50 mg IM Q6 PRN PRN Reason: Agitation Emtricitabine/Tenofovir (Truvada 200 Mg-300 Mg) 1 tab PO DAILY [facility] Last Admin: 02/28/17 08:17 Dose: 1 tab Gabapentin (Neurontin) 400 mg PO TID [facility] Last Admin: 02/28/17 08:17 Dose: 400 mg Haloperidol (Haldol) 5 mg PO Q4 PRN PRN Reason: Agitation Haloperidol Lactate (Haldol) 5 mg IM Q4 PRN PRN Reason: Agitation, Unable to Take PO Ibuprofen (Motrin Tab) 600 mg PO Q6 PRN PRN Reason: Pain, moderate (4-7) Last Admin: 02/27/17 06:08 Dose: 600 mg Lorazepam (Ativan) 2 mg IM Q6 PRN PRN Reason: Agitation Lorazepam (Ativan) 1 mg PO Q6 PRN PRN Reason: Anxiety/Agitation Magnesium Hydroxide (Milk Of Magnesia) 30 ml PO HS PRN PRN Reason: Constipation Quetiapine Fumarate (Seroquel) 300 mg PO HS [facility] Last Admin: 02/27/17 21:24 Dose: 300 mg Quetiapine Fumarate (Seroquel) 100 mg PO BID [facility] Last Admin: 02/28/17 08:17 Dose: 100 mg Fluticasone/Salmeterol (Advair Diskus 250/50) 1 puff IH Q12 [facility] Last Admin: 02/28/17 08:17 Dose: 1 puff Sertraline HCl (Zoloft) 75 mg PO DAILY [facility] Last Admin: 02/28/17 08:16 Dose: 75 mg Valsartan (Diovan) 80 mg PO DAILY [facility] Last Admin: 02/28/17 08:18 Dose: 80 mg Zolpidem Tartrate (Ambien) 5 mg PO HS PRN PRN Reason: Insomnia Last Admin: 02/27/17 21:24 Dose: 5 mg - Constitutional Appears: Non-toxic, No Acute Distress - Respiratory Exam Respiratory Exam: Wheezes (End-insparatory ), NORMAL BREATHING PATTERN. absent : Accessory Muscle Use, Decreased Breath Sounds, Respiratory Distress - Cardiovascular Exam Cardiovascular Exam: REGULAR RHYTHM, +S1, +S2 - GI/Abdominal Exam GI & Abdominal Exam: Soft. absent: Tenderness - Neurological Exam Neurological Exam: Alert, Awake, Oriented x3 - Psychiatric Exam Psychiatric exam: Normal Affect, Normal Mood Assessment and Plan - Assessment and Plan (Free Text) Assessment: 57 y/o F with PMHx including HTN, Intermittent Asthma, HIV (last CD4 count 469 on 08/18/16), Chronic HCV admitted to inpatient psychiatric unit for depression and suicidal ideation. Plan: Depression -Treatment as per psychiatry Suicide Ideation -Treatment as per psychiatry HTN- well controlled -Continue Diovan 80mg and monitor BP Intermittent Asthma- Well controlled -Advair 250/50 Q12 -Albuterol PRN HIV- CD4 count 233 on 02/22/17 -Patient has not been taking medications since at least 3 months -Continue Truvada daily Chronic HCV- Currently asymptomatic - AST 38 - Monitor LFTs Diet - GI diet DVT prophylaxis - ambulate
--- NOTE | 2017-02-28 15:07 | PCM.PYCHPN ---
Psychiatric Progress Note - Psychiatric Progress Note Patient seen today, length of contact: discussed with team Patient Chief Complaint: i am hanging in there doc Problems Identified/Issues Discussed: pt complaining of having uri symptoms. she is less anxious. fair sleep. thoughts remain clear and she wants to work on sobriety. Medication Change: No Medical Record Reviewed: Yes Mental Status Examination - Cognitive Function Orientation: Person, Place, Situation, Time Memory: Intact Attention: WNL Concentration: WNL Association: WNL Fund of Knowledge: WN Decription of patient's judgement and insights: fair i/j - Mood Mood: Depressed - Affect Affect: Blunted, Depressed - Speech Speech: Appropriate - Formal Thought Process Formal Thought Process: No Impairment - Suicidal Ideation Suicidal Ideation: No - Homicidal Ideation Homicidal Ideation: No Goal/Treatment Plan - Goal/Treatment Plan Need for Continued Stay: Remain at risks for inpatient hospitalization, Discharge may exacerbated symptoms Progress Toward Problem(s) and Goals/Treatment Plan: bipolar disorder opioid dependence continue current medications 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
[2017-03-01] MEDS: Albuterol HFA 90 mcg/actuation (8 g) IH PRN (07:30)
[2017-03-01] MEDS: Fluticasone-Salmeterol 250-50mcg Diskus IH SCH ×2 (08:48→21:11)
[2017-03-01] MEDS: Emtricitabine-Tenofovir 200 mg-300 mg Tab PO SCH (08:50)
--- NOTE | 2017-03-01 10:58 | PCM.BM ---
Treatment Plan Problems - Problems identified on initial assessmt Hopelessness/Helplessness Date Initiated: 02/21/17 Time Initiated: 19:45 Assessment reference: NA Status: Active Priority: 1 Depression Date Initiated: 02/22/17 Time Initiated: 11:00 Assessment reference: SW, NA Status: Active Priority: 2 Suicidal Ideations Date Initiated: 02/22/17 Time Initiated: 11:00 Assessment reference: SW Status: Active Priority: 2 Treatment assets and liabiliti Patient Assests: adapts well, cooperative, self-reliant, good support system, negotiates basic needs, strong gregory Patient Liabilities: substance abuse, medical problems - Milieu Protocol Maintain good personal hygiene: daily Encourage regular showers, daily Remind patient to perform daily oral care, daily Assist patient to perform ADL's Maintain personal safety: every shift Educate patient to report safety concerns to staff, every shift Monitor environment for contraband/sharps Medication safety: Monitor for expected outcome, potential side effects: every shift, Assess barriers to learning: every shift, Assess readiness for medication education: every shift Milieu Narrative: bipolar disorder opioid dependence continue current medications medical laboratory manager to monitor her uri disposition planning- refer to inpt rehab Family Contact Family contact: Patient agrees to contact (Patients father to be contacted with clinical updates regarding patients progress on 3NP and discharge plan.) Family contact name: Carlo(father)([phone]) Family contacted how many times per week?: 1 Family contact comment: Patient identifies parents as primary supports. Patient has provided consent for parents. [employer] placed call to patients father to provide clinical updates regarding progress on 3NP, discharge planning and aftercare. [employer] unable to leave voicemail and will make call at later time. - Outside Agency Agency 1 Care involvment: Information-sharing, Other (Patient currently requesting inpatient rehab referrals. Patient expressed understanding that a bed is not guaranteed and that alternate SARI referrals might be necessary at discharge.) Agency contact name: Patient has significant hx of partial hospital with [facility] and [facility] Maureen Avila. Patient currently not welcome to return to [facility] secondary to hx of noncompliance. Patient must be referred to [facility] by [facility] Maureen Avila after complying for 1 month and having a clean urine 3 consecutive times. Agency contact number: [phone] Discharge/Continuing Care - Education Needs Education Needs: Family Medication, Family Community resources, Patient Medication, Patient Diagnosis/Disease Process, Patient Coping Skills, Patient Anger Management skills, Patient Community resources, Patient Activities of Daily Living, Patient Health Practices/Safety, Patient Personal Hygiene/Grooming - Discharge Discharge Criteria: Tolerates medication w/o severe side effects, Free of Suicidal thoughts, Free of Homicidal thoughts, Free of agitation, Normal sleep pattern, Ability to care for self - Treatment Team Participation Patient/Family/SO Statement: bipolar disorder opioid dependence continue current medications medical laboratory manager to monitor her uri disposition planning- refer to in rehab Treatment Plan Review - Problem Hopelessness/Helplessness Time Initiated: 19:45 Depression Time Initiated: 11:00 Suicidal Ideations Time Initiated: 11:00
--- NOTE | 2017-03-01 12:25 | PCM.PYCHPN ---
Psychiatric Progress Note - Psychiatric Progress Note Patient seen today, length of contact: in treatment team Patient Chief Complaint: i feel a little better Problems Identified/Issues Discussed: pt states her mood is improving. she has upper respiratory complaints- cough, etc. she is worried if she is discharged she will use heroin. she is agreeable to rehab referral. Medication Change: Yes Medical Record Reviewed: Yes Mental Status Examination - Cognitive Function Orientation: Person, Place, Situation, Time Memory: Intact Attention: WNL Concentration: WNL Association: WNL Fund of Knowledge: WNL Decription of patient's judgement and insights: fair i/j - Mood Mood: Depressed - Affect Affect: Blunted, Depressed - Speech Speech: Appropriate - Formal Thought Process Formal Thought Process: No Impairment - Suicidal Ideation Suicidal Ideation: No - Homicidal Ideation Homicidal Ideation: No Goal/Treatment Plan - Goal/Treatment Plan Need for Continued Stay: Remain at risks for inpatient hospitalization, Discharge may exacerbated symptoms Progress Toward Problem(s) and Goals/Treatment Plan: bipolar disorder opioid dependence continue current medications- will increase zoloft to 100mg tomorrow medical clerk to monitor her uri disposition planning- refer to inpt rehab Estimated Date of D/C: 02/28/17
--- NOTE | 2017-03-01 15:27 | RAD ---
HISTORY: COMPARISON: 09/23/2016 TECHNIQUE: Chest PA and lateral FINDINGS: LINES AND TUBES: None. LUNG AND PLEURA: The lungs are hyperinflated and there is peribronchial thickening with chronic changes in both lungs. There is no lobar pneumonia. HEART AND MEDIASTINUM: The heart is not enlarged. The hilar and mediastinal contours are within normal limits. SKELETAL STRUCTURES: The bony structures are within normal limits for the patient's age. VISUALIZED UPPER ABDOMEN: Normal. OTHER FINDINGS: None. IMPRESSION: No active pulmonary disease. COPD.
[2017-03-02] MEDS: Albuterol HFA 90 mcg/actuation (8 g) IH PRN (08:50)
[2017-03-02] MEDS: Fluticasone-Salmeterol 250-50mcg Diskus IH SCH ×2 (08:51→21:00)
[2017-03-02] MEDS: Emtricitabine-Tenofovir 200 mg-300 mg Tab PO SCH (08:52)
--- NOTE | 2017-03-02 11:15 | PCM.PYCHPN ---
Psychiatric Progress Note - Psychiatric Progress Note Patient seen today, length of contact: discussed with team Patient Chief Complaint: i feel a little better Problems Identified/Issues Discussed: pt states her mood is improving. she has upper respiratory complaints- cough, etc. she is worried if she is discharged she will use heroin. pt still complaining that her legs are hurting still. she is agreeable to rehab referral. Medication Change: Yes Medical Record Reviewed: Yes Mental Status Examination - Cognitive Function Orientation: Person, Place, Situation, Time Memory: Intact Attention: WNL Concentration: WNL Association: WNL Fund of Knowledge: WNL Decription of patient's judgement and insights: fair i/j - Mood Mood: Depressed - Affect Affect: Blunted, Depressed - Speech Speech: Appropriate - Formal Thought Process Formal Thought Process: No Impairment - Suicidal Ideation Suicidal Ideation: No - Homicidal Ideation Homicidal Ideation: No Goal/Treatment Plan - Goal/Treatment Plan Need for Continued Stay: Remain at risks for inpatient hospitalization, Discharge may exacerbated symptoms Progress Toward Problem(s) and Goals/Treatment Plan: bipolar disorder opioid dependence continue current medications- continue zoloft 100mg increase neurontin medical technologist chemistry to monitor her uri and leg pain disposition planning- refer to inpt rehab Estimated Date of D/C: 02/28/17
[2017-03-02] MEDS: Benzocaine/Menthol (Cepacol) Lozenge PO PRN ×2 (11:24→17:44)
--- NOTE | 2017-03-02 16:29 | CP.PCM.PN ---
Subjective - Date & Time of Evaluation Date of Evaluation: 03/01/17 Time of Evaluation: 10:23 - Subjective Subjective: Patient seen and examined psych lawrence at bedside. Patient in no distress at this time. Complains of nasal congestion and occasional cough. Denies any headache, chest pain, shortness of breath, abdominal pain, fever, chills, nausea, vomiting , or diarrhea. Objective - Vital Signs/Intake and Output Vital Signs (last 24 hours): Temp Pulse Resp BP Pulse Ox 98.1 F 85 18 109/76 97 03/02/17 09:00 03/02/17 09:00 03/02/17 09:00 03/02/17 09:00 02/21/17 16:28 - Medications Medications: Current Medications Albuterol (Ventolin Hfa 90 Mcg/Actuation (8 G)) 2 puff IH Q4H PRN PRN Reason: Shortness of Breath Last Admin: 03/02/17 08:50 Dose: 2 puff Benzocaine/Menthol (Cepacol Sore Throat) 1 candido PO Q2 PRN PRN Reason: Sore Throat Last Admin: 03/02/17 11:24 Dose: 1 candido Diphenhydramine HCl (Benadryl) 50 mg PO Q6 PRN PRN Reason: Extrapyramidal Symptoms Diphenhydramine HCl (Benadryl) 50 mg IM Q6 PRN PRN Reason: Agitation Emtricitabine/Tenofovir (Truvada 200 Mg-300 Mg) 1 tab PO DAILY [facility] Last Admin: 03/02/17 08:52 Dose: 1 tab Gabapentin (Neurontin) 600 mg PO TID [facility] Last Admin: 03/02/17 12:54 Dose: 600 mg Haloperidol (Haldol) 5 mg PO Q4 PRN PRN Reason: Agitation Haloperidol Lactate (Haldol) 5 mg IM Q4 PRN PRN Reason: Agitation, Unable to Take PO Ibuprofen (Motrin Tab) 600 mg PO Q6 PRN PRN Reason: Pain, moderate (4-7) Last Admin: 02/27/17 06:08 Dose: 600 mg Lorazepam (Ativan) 2 mg IM Q6 PRN PRN Reason: Agitation Lorazepam (Ativan) 1 mg PO Q6 PRN PRN Reason: Anxiety/Agitation Magnesium Hydroxide (Milk Of Magnesia) 30 ml PO HS PRN PRN Reason: Constipation Oxymetazoline HCl (Nasal Decongestant 15 Ml) 1 spr NS Q12 PRN PRN Reason: Nasal congestion Last Admin: 03/01/17 17:13 Dose: 1 spr Quetiapine Fumarate (Seroquel) 300 mg PO HS [facility] Last Admin: 03/01/17 21:11 Dose: 300 mg Quetiapine Fumarate (Seroquel) 100 mg PO BID [facility] Last Admin: 03/02/17 08:53 Dose: 100 mg Raltegravir (Isentress) 400 mg PO BID [facility] Last Admin: 03/02/17 08:52 Dose: 400 mg Fluticasone/Salmeterol (Advair Diskus 250/50) 1 puff IH Q12 [facility] Last Admin: 03/02/17 08:51 Dose: 1 puff Sertraline HCl (Zoloft) 100 mg PO DAILY [facility] Last Admin: 03/02/17 08:52 Dose: 100 mg Valsartan (Diovan) 80 mg PO DAILY [facility] Last Admin: 03/02/17 08:53 Dose: 80 mg Zolpidem Tartrate (Ambien) 5 mg PO HS PRN PRN Reason: Insomnia Last Admin: 03/01/17 21:11 Dose: 5 mg - Constitutional Appears: Well, Non-toxic, No Acute Distress - Head Exam Head Exam: ATRAUMATIC, NORMAL INSPECTION, NORMOCEPHALIC - Eye Exam Eye Exam: Normal appearance. absent: Conjunctival injection - ENT Exam ENT Exam: Mucous Membranes Moist, Normal Exam, Normal Oropharynx Additional comments: no sinus tenderness, nasal turbinates bilaterally red/swollen - Neck Exam Neck Exam: Normal Inspection - Respiratory Exam Respiratory Exam: Clear to Ausculation Bilateral, NORMAL BREATHING PATTERN. absent: Decreased Breath Sounds, Rales, Rhonchi, Wheezes - Cardiovascular Exam Cardiovascular Exam: REGULAR RHYTHM, +S1, +S2. absent: Murmur - GI/Abdominal Exam GI & Abdominal Exam: Soft, Normal Bowel Sounds. absent: Tenderness - Extremities Exam Extremities Exam: Normal Inspection - Neurological Exam Neurological Exam: Alert, Awake, Oriented x3 - Psychiatric Exam Psychiatric exam: Normal Affect, Normal Mood - Skin Skin Exam: Dry, Intact, Normal Color, Warm Assessment and Plan - Assessment and Plan (Free Text) Assessment: 57 y/o F with PMHx including HTN, Intermittent Asthma, HIV (last CD4 count 469 on 08/18/16), Chronic HCV admitted to inpatient psychiatric unit for depression and suicidal ideation. Plan: HTN- well controlled -Continue Diovan 80mg and monitor BP Upper Respiratory Infection -Likely viral in nature, no signs of bacterial process at this time -Cepacol PRN -Oxymetazoline PRN -Albuterol PRN Intermittent Asthma- Well controlled -Advair 250/50 Q12 -Albuterol PRN HIV- CD4 count 233 on 02/22/17 -Patient has not been taking medications since at least 3 months -Spoke with primary regarding treatment, will obtain genotype and treat accordingly -Continue Truvada daily -Start Isentress 400mg BID Chronic HCV- Currently asymptomatic - Monitor LFTs Depression -Treatment as per psychiatry Suicide Ideation -Treatment as per psychiatry Diet - GI diet DVT prophylaxis - ambulate
[2017-03-03] MEDS: Emtricitabine-Tenofovir 200 mg-300 mg Tab PO SCH (08:34)
[2017-03-03] MEDS: Fluticasone-Salmeterol 250-50mcg Diskus IH SCH ×2 (09:02→21:01)
--- NOTE | 2017-03-03 12:27 | PCM.PYCHPN ---
Psychiatric Progress Note - Psychiatric Progress Note Patient seen today, length of contact: discussed with team Patient Chief Complaint: i feel okay Problems Identified/Issues Discussed: pt states her mood is improving. still complaining of leg pain. attempts to attend groups, but leaves early. no agitation. Medication Change: Yes Medical Record Reviewed: Yes Mental Status Examination - Cognitive Function Orientation: Person, Place, Situation, Time Memory: Intact Attention: WNL Concentration: WNL Association: WNL Fund of Knowledge: [facility] Decription of patient's judgement and insights: fair i/j - Mood Mood: Depressed - Affect Affect: Blunted, Depressed - Speech Speech: Appropriate - Formal Thought Process Formal Thought Process: No Impairment Psychotic Thoughts and Behaviors: denies a/v hallucinations - Suicidal Ideation Suicidal Ideation: No - Homicidal Ideation Homicidal Ideation: No Goal/Treatment Plan - Goal/Treatment Plan Need for Continued Stay: Remain at risks for inpatient hospitalization, Discharge may exacerbated symptoms Progress Toward Problem(s) and Goals/Treatment Plan: bipolar disorder opioid dependence continue current medications- continue zoloft 100mg continue neurontin 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
[2017-03-04] MEDS: Fluticasone-Salmeterol 250-50mcg Diskus IH SCH ×2 (08:41→21:04)
[2017-03-04] MEDS: Emtricitabine-Tenofovir 200 mg-300 mg Tab PO SCH (08:41)
--- NOTE | 2017-03-04 10:56 | PCM.PYCHPN ---
Psychiatric Progress Note - Psychiatric Progress Note Patient seen today, length of contact: discussed with team Patient Chief Complaint: pt still c/o leg pain and still anxious and depressed .pt denies side effects to meds . Medication Change: Yes Medical Record Reviewed: Yes Mental Status Examination - Cognitive Function Orientation: Person, Place, Situation, Time Memory: Intact Attention: WNL Concentration: WNL Association: WNL Fund of Knowledge: WNL - Mood Mood: Depressed - Affect Affect: Blunted, Depressed - Speech Speech: Appropriate - Formal Thought Process Formal Thought Process: No Impairment - Suicidal Ideation Suicidal Ideation: No - Homicidal Ideation Homicidal Ideation: No Goal/Treatment Plan - Goal/Treatment Plan Need for Continued Stay: Remain at risks for inpatient hospitalization, Discharge may exacerbated symptoms Progress Toward Problem(s) and Goals/Treatment Plan: will continue to titrate stabilize the pt with meds and engage pt in therapy. Estimated Date of D/C: 02/28/17
[2017-03-05] MEDS: Fluticasone-Salmeterol 250-50mcg Diskus IH SCH (08:40)
[2017-03-05] MEDS: Albuterol HFA 90 mcg/actuation (8 g) IH PRN (08:42)
[2017-03-05] MEDS: Emtricitabine-Tenofovir 200 mg-300 mg Tab PO SCH (08:42)
[2017-03-06] MEDS: Emtricitabine-Tenofovir 200 mg-300 mg Tab PO SCH (08:25)
--- NOTE | 2017-03-06 10:13 | PCM.PYCHPN ---
Psychiatric Progress Note - Psychiatric Progress Note Patient seen today, length of contact: discussed with team Patient Chief Complaint: can i stay a little longer Problems Identified/Issues Discussed: pt triggered by a disruptive peer on the unit. feeling anxious and unsettled. wants to stay a little longer in the hospital. no c/o medication side effects. Medication Change: No Medical Record Reviewed: Yes Mental Status Examination - Cognitive Function Orientation: Person, Place, Situation, Time Memory: Intact Attention: WNL Concentration: WNL Association: WNL Fund of Knowledge: [facility] Decription of patient's judgement and insights: fair - Mood Mood: Depressed - Affect Affect: Blunted, Depressed - Speech Speech: Appropriate - Formal Thought Process Formal Thought Process: No Impairment - Suicidal Ideation Suicidal Ideation: No - Homicidal Ideation Homicidal Ideation: No Goal/Treatment Plan - Goal/Treatment Plan Need for Continued Stay: Remain at risks for inpatient hospitalization, Discharge may exacerbated symptoms Progress Toward Problem(s) and Goals/Treatment Plan: bipolar disorder opioid dependence continue current medications- continue zoloft 100mg continue neurontin at current dose medical certification specialist to monitor her uri and leg pain disposition planning- refer to inpt rehab Estimated Date of D/C: 03/10/17
--- NOTE | 2017-03-06 14:07 | CP.PCM.PN ---
Subjective - Date & Time of Evaluation Date of Evaluation: 03/06/17 Time of Evaluation: 09:00 - Subjective Subjective: Patient seen and examined at bedside. Patient in no distress at this time. Nasal congestion and occasional cough have significantly improved. Denies any headache, chest pain, shortness of breath, abdominal pain, fever, chills, nausea , vomiting, or diarrhea. Objective - Vital Signs/Intake and Output Vital Signs (last 24 hours): Temp Pulse Resp BP Pulse Ox 97.1 F L 93 H 18 92/70 L 99 03/05/17 17:00 03/05/17 17:00 03/05/17 17:00 03/05/17 17:00 03/02/17 22:01 - Medications Medications: Current Medications Albuterol (Ventolin Hfa 90 Mcg/Actuation (8 G)) 2 puff IH Q4H PRN PRN Reason: Shortness of Breath Last Admin: 03/05/17 08:42 Dose: 2 puff Benzocaine/Menthol (Cepacol Sore Throat) 1 candido PO Q2 PRN PRN Reason: Sore Throat Last Admin: 03/02/17 17:44 Dose: 1 candido Diphenhydramine HCl (Benadryl) 50 mg PO Q6 PRN PRN Reason: Extrapyramidal Symptoms Diphenhydramine HCl (Benadryl) 50 mg IM Q6 PRN PRN Reason: Agitation Emtricitabine/Tenofovir (Truvada 200 Mg-300 Mg) 1 tab PO DAILY [facility] Last Admin: 03/06/17 08:25 Dose: 1 tab Gabapentin (Neurontin) 600 mg PO TID [facility] Last Admin: 03/06/17 13:05 Dose: 600 mg Haloperidol (Haldol) 5 mg PO Q4 PRN PRN Reason: Agitation Haloperidol Lactate (Haldol) 5 mg IM Q4 PRN PRN Reason: Agitation, Unable to Take PO Ibuprofen (Motrin Tab) 600 mg PO Q6 PRN PRN Reason: Pain, moderate (4-7) Last Admin: 02/27/17 06:08 Dose: 600 mg Lorazepam (Ativan) 2 mg IM Q6 PRN PRN Reason: Agitation Lorazepam (Ativan) 1 mg PO Q6 PRN PRN Reason: Anxiety/Agitation Magnesium Hydroxide (Milk Of Magnesia) 30 ml PO HS PRN PRN Reason: Constipation Oxymetazoline HCl (Nasal Decongestant 15 Ml) 1 spr NS Q12 PRN PRN Reason: Nasal congestion Last Admin: 03/01/17 17:13 Dose: 1 spr Quetiapine Fumarate (Seroquel) 300 mg PO HS [facility] Last Admin: 03/05/17 21:14 Dose: 300 mg Quetiapine Fumarate (Seroquel) 100 mg PO BID [facility] Last Admin: 03/06/17 08:23 Dose: 100 mg Raltegravir (Isentress) 400 mg PO BID [facility] Last Admin: 03/06/17 08:23 Dose: 400 mg Sertraline HCl (Zoloft) 100 mg PO DAILY [facility] Last Admin: 03/06/17 08:23 Dose: 100 mg Valsartan (Diovan) 40 mg PO DAILY [facility] Zolpidem Tartrate (Ambien) 5 mg PO HS PRN PRN Reason: Insomnia Last Admin: 03/05/17 21:14 Dose: 5 mg - Constitutional Appears: Well, Non-toxic, No Acute Distress - Head Exam Head Exam: ATRAUMATIC, NORMAL INSPECTION, NORMOCEPHALIC - Eye Exam Eye Exam: Normal appearance - Neck Exam Neck Exam: Normal Inspection - Respiratory Exam Respiratory Exam: Clear to Ausculation Bilateral, NORMAL BREATHING PATTERN - Cardiovascular Exam Cardiovascular Exam: REGULAR RHYTHM, RRR, +S1, +S2 - GI/Abdominal Exam GI & Abdominal Exam: Soft, Normal Bowel Sounds. absent: Tenderness - Extremities Exam Extremities Exam: Normal Inspection - Neurological Exam Neurological Exam: Alert, Awake - Psychiatric Exam Psychiatric exam: Normal Affect, Normal Mood - Skin Skin Exam: Dry, Intact, Normal Color, Warm Assessment and Plan - Assessment and Plan (Free Text) Assessment: 57 y/o F with PMHx including HTN, Intermittent Asthma, HIV (last CD4 count 469 on 08/18/16), Chronic HCV admitted to inpatient psychiatric unit for depression and suicidal ideation. Plan: HTN- well controlled -Decrease Diovan to 40mg and monitor BP Upper Respiratory Infection -Resolved, supportive therapy as needed Intermittent Asthma- Well controlled -Advair 250/50 Q12 -Albuterol PRN HIV- CD4 count 233 on 02/22/17 -Patient has not been taking medications since at least 3 months -Pending genotype -Continue Truvada daily -Continue Isentress 400mg BID Chronic HCV- Currently asymptomatic - Monitor LFTs Depression -Treatment as per psychiatry Suicide Ideation -Treatment as per psychiatry Diet - GI diet DVT prophylaxis - ambulate
[2017-03-06] MEDS: Albuterol HFA 90 mcg/actuation (8 g) IH PRN (16:00)
[2017-03-07] MEDS: Emtricitabine-Tenofovir 200 mg-300 mg Tab PO SCH (10:07)
--- NOTE | 2017-03-07 11:42 | PCM.PYCHPN ---
Psychiatric Progress Note - Psychiatric Progress Note Patient seen today, length of contact: discussed with team Patient Chief Complaint: i still feel depressed Problems Identified/Issues Discussed: pt still c/o feeling depressed. wants to go to rehab still. Medication Change: No Medical Record Reviewed: Yes Mental Status Examination - Cognitive Function Orientation: Person, Place, Situation, Time Memory: Intact Attention: WNL Concentration: WNL Association: WNL Fund of Knowledge: WNL Decription of patient's judgement and insights: fair - Mood Mood: Depressed - Affect Affect: Blunted, Depressed - Speech Speech: Appropriate - Formal Thought Process Formal Thought Process: No Impairment - Suicidal Ideation Suicidal Ideation: No - Homicidal Ideation Homicidal Ideation: No Goal/Treatment Plan - Goal/Treatment Plan Need for Continued Stay: Remain at risks for inpatient hospitalization, Discharge may exacerbated symptoms Progress Toward Problem(s) and Goals/Treatment Plan: bipolar disorder opioid dependence continue current medications- increase zoloft to 125mg am continue neurontin at current dose medical transcription to monitor her uri and leg pain disposition planning- refer to inpt rehab Estimated Date of D/C: 03/10/17
[2017-03-08 08:39] LABS: HIV-1 GENOTYPE DETECTED
[2017-03-08] MEDS: Emtricitabine-Tenofovir 200 mg-300 mg Tab PO SCH (09:25)
--- NOTE | 2017-03-08 10:07 | PCM.PYCHPN ---
Psychiatric Progress Note - Psychiatric Progress Note Patient seen today, length of contact: discussed with team Patient Chief Complaint: i am depressed Problems Identified/Issues Discussed: pt still c/o feeling depressed. wants to go to rehab still. Medication Change: No Medical Record Reviewed: Yes Mental Status Examination - Cognitive Function Orientation: Person, Place, Situation, Time Memory: Intact Attention: WNL Concentration: WNL Association: WNL Fund of Knowledge: WNL Decription of patient's judgement and insights: fair - Mood Mood: Depressed - Affect Affect: Blunted, Depressed - Speech Speech: Appropriate - Formal Thought Process Formal Thought Process: No Impairment - Suicidal Ideation Suicidal Ideation: No - Homicidal Ideation Homicidal Ideation: No Goal/Treatment Plan - Goal/Treatment Plan Need for Continued Stay: Remain at risks for inpatient hospitalization, Discharge may exacerbated symptoms Progress Toward Problem(s) and Goals/Treatment Plan: bipolar disorder opioid dependence continue current medications- increase zoloft to 150mg am tomorrow continue neurontin at current dose 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
--- NOTE | 2017-03-08 17:01 | US ---
HISTORY: ruq, active hep c COMPARISON: None. TECHNIQUE: Sonographic evaluation of the right upper quadrant of the abdomen. FINDINGS: LIVER: Measures 18.7 cm in length. Mildly enlarged. Normal echogenicity of the liver parenchyma. No mass. No intrahepatic bile duct dilatation. GALLBLADDER: No evidence of cholelithiasis. No mural thickening or pericholecystic fluid. Negative sonographic Paez sign. COMMON BILE DUCT: Measures 8 mm. No stones. Mildly dilated, uncertain significance. PANCREAS: Head and body of pancreas are unremarkable, without mass or ductal dilatation. Pancreatic tail partially obscured by bowel gas. RIGHT KIDNEY: Measures 8.6 cm in length. Normal echogenicity. No calculus, mass, or hydronephrosis. AORTA: No aneurysmal dilatation. IVC: Unremarkable. OTHER FINDINGS: None . IMPRESSION: Mild hepatomegaly. No mass identified. Mild dilatation of the common bile duct without evidence of associated intrahepatic biliary dilatation. No other abnormality identified.
--- NOTE | 2017-03-08 17:56 | CP.PCM.PN ---
<Fady Cummins - Last Filed: 03/09/17 08:26> Subjective - Date & Time of Evaluation Date of Evaluation: 03/08/17 Time of Evaluation: 10:56 - Subjective Subjective: Patient seen and examined at bedside. Patient in no distress at this time. Denies any headache, chest pain, shortness of breath, cough, abdominal pain, fever, chills, nausea, vomiting, or diarrhea. Objective - Vital Signs/Intake and Output Vital Signs (last 24 hours): Temp Pulse Resp BP Pulse Ox 98.1 F 72 18 106/73 99 03/08/17 09:00 03/08/17 09:00 03/08/17 09:00 03/08/17 09:00 03/02/17 22:01 - Medications Medications: Current Medications Albuterol (Ventolin Hfa 90 Mcg/Actuation (8 G)) 2 puff IH Q4H PRN PRN Reason: Shortness of Breath Last Admin: 03/06/17 16:00 Dose: 2 puff Benzocaine/Menthol (Cepacol Sore Throat) 1 candido PO Q2 PRN PRN Reason: Sore Throat Last Admin: 03/02/17 17:44 Dose: 1 candido Calcium Carbonate (Oscal) 500 mg PO BIDWM [facility] Last Admin: 03/08/17 17:25 Dose: 500 mg Cholecalciferol (Vitamin D) 1,000 iu PO DAILY [facility] Last Admin: 03/08/17 09:26 Dose: 1,000 iu Diphenhydramine HCl (Benadryl) 50 mg PO Q6 PRN PRN Reason: Extrapyramidal Symptoms Diphenhydramine HCl (Benadryl) 50 mg IM Q6 PRN PRN Reason: Agitation Emtricitabine/Tenofovir (Truvada 200 Mg-300 Mg) 1 tab PO DAILY [facility] Last Admin: 03/08/17 09:25 Dose: 1 tab Gabapentin (Neurontin) 600 mg PO TID [facility] Last Admin: 03/08/17 17:26 Dose: 600 mg Haloperidol (Haldol) 5 mg PO Q4 PRN PRN Reason: Agitation Haloperidol Lactate (Haldol) 5 mg IM Q4 PRN PRN Reason: Agitation, Unable to Take PO Ibuprofen (Motrin Tab) 600 mg PO Q6 PRN PRN Reason: Pain, moderate (4-7) Last Admin: 02/27/17 06:08 Dose: 600 mg Lorazepam (Ativan) 2 mg IM Q6 PRN PRN Reason: Agitation Lorazepam (Ativan) 1 mg PO Q6 PRN PRN Reason: Anxiety/Agitation Magnesium Hydroxide (Milk Of Magnesia) 30 ml PO HS PRN PRN Reason: Constipation Oxymetazoline HCl (Nasal Decongestant 15 Ml) 1 spr NS Q12 PRN PRN Reason: Nasal congestion Last Admin: 03/01/17 17:13 Dose: 1 spr Quetiapine Fumarate (Seroquel) 300 mg PO HS [facility] Last Admin: 03/07/17 21:12 Dose: 300 mg Quetiapine Fumarate (Seroquel) 100 mg PO BID [facility] Last Admin: 03/08/17 17:25 Dose: 100 mg Raltegravir (Isentress) 400 mg PO BID [facility] Last Admin: 03/08/17 17:26 Dose: 400 mg Sertraline HCl (Zoloft) 125 mg PO DAILY [facility] Last Admin: 03/08/17 09:27 Dose: 125 mg Valsartan (Diovan) 40 mg PO DAILY [facility] Last Admin: 03/08/17 09:25 Dose: 40 mg Zolpidem Tartrate (Ambien) 5 mg PO HS PRN PRN Reason: Insomnia Last Admin: 03/07/17 21:12 Dose: 5 mg - Additional Findings Additional findings: - Constitutional Appears: Well, Non-toxic, No Acute Distress - Head Exam Head Exam: ATRAUMATIC, NORMAL INSPECTION, NORMOCEPHALIC - Eye Exam Eye Exam: Normal appearance - Neck Exam Neck Exam: Normal Inspection - Respiratory Exam Respiratory Exam: Clear to Auscultation Bilateral, NORMAL BREATHING PATTERN - Cardiovascular Exam Cardiovascular Exam: REGULAR RHYTHM, RRR, +S1, +S2 - GI/Abdominal Exam GI & Abdominal Exam: Soft, Normal Bowel Sounds. absent: Tenderness - Extremities Exam Extremities Exam: Normal Inspection - Neurological Exam Neurological Exam: Alert, Awake - Psychiatric Exam Psychiatric exam: Normal Affect, Normal Mood - Skin Skin Exam: Dry, Intact, Normal Color, Warm Assessment and Plan - Assessment and Plan (Free Text) Assessment: 57 y/o F with PMHx including HTN, Intermittent Asthma, HIV (last CD4 count 469 on 08/18/16), Chronic HCV admitted to inpatient psychiatric unit for depression and suicidal ideation. Plan: HTN- well controlled -c/w Diovan to 40mg and monitor BP Intermittent Asthma- Well controlled -Advair 250/50 Q12 -Albuterol PRN HIV- CD4 count 233 on 02/22/17 -Patient has not been taking medications since at least 3 months -Genotype noted -Continue Truvada daily -Continue Isentress 400mg BID Chronic HCV- Currently asymptomatic - Monitor LFTs - Abd u/s noted. Depression -Treatment as per psychiatry Suicide Ideation -Treatment as per psychiatry DVT prophylaxis - ambulate <Jenni Boyle - Last Filed: 03/10/17 08:16> Objective - Vital Signs/Intake and Output Vital Signs (last 24 hours): Temp Pulse Resp BP Pulse Ox 97.3 F L 74 18 123/71 74 L 03/09/17 17:00 03/09/17 17:00 03/09/17 17:00 03/09/17 17:00 03/09/17 17:00 - Medications Medications: Current Medications Albuterol (Ventolin Hfa 90 Mcg/Actuation (8 G)) 2 puff IH Q4H PRN PRN Reason: Shortness of Breath Last Admin: 03/09/17 17:33 Dose: 2 puff Benzocaine/Menthol (Cepacol Sore Throat) 1 candido PO Q2 PRN PRN Reason: Sore Throat Last Admin: 03/02/17 17:44 Dose: 1 candido Calcium Carbonate (Oscal) 500 mg PO BIDWM [facility] Last Admin: 03/09/17 17:27 Dose: 500 mg Cholecalciferol (Vitamin D) 1,000 iu PO DAILY [facility] Last Admin: 03/09/17 08:36 Dose: 1,000 iu Diphenhydramine HCl (Benadryl) 50 mg PO Q6 PRN PRN Reason: Extrapyramidal Symptoms Diphenhydramine HCl (Benadryl) 50 mg IM Q6 PRN PRN Reason: Agitation Emtricitabine/Tenofovir (Truvada 200 Mg-300 Mg) 1 tab PO DAILY [facility] Last Admin: 03/09/17 08:37 Dose: 1 tab Gabapentin (Neurontin) 600 mg PO TID [facility] Last Admin: 03/09/17 17:27 Dose: 600 mg Haloperidol (Haldol) 5 mg PO Q4 PRN PRN Reason: Agitation Haloperidol Lactate (Haldol) 5 mg IM Q4 PRN PRN Reason: Agitation, Unable to Take PO Ibuprofen (Motrin Tab) 600 mg PO Q6 PRN PRN Reason: Pain, moderate (4-7) Last Admin: 02/27/17 06:08 Dose: 600 mg Lorazepam (Ativan) 2 mg IM Q6 PRN PRN Reason: Agitation Lorazepam (Ativan) 1 mg PO Q6 PRN PRN Reason: Anxiety/Agitation Magnesium Hydroxide (Milk Of Magnesia) 30 ml PO HS PRN PRN Reason: Constipation Oxymetazoline HCl (Nasal Decongestant 15 Ml) 1 spr NS Q12 PRN PRN Reason: Nasal congestion Last Admin: 03/01/17 17:13 Dose: 1 spr Quetiapine Fumarate (Seroquel) 300 mg PO HS [facility] Last Admin: 03/09/17 21:18 Dose: 300 mg Quetiapine Fumarate (Seroquel) 100 mg PO BID [facility] Last Admin: 03/09/17 17:31 Dose: 100 mg Raltegravir (Isentress) 400 mg PO BID [facility] Last Admin: 03/09/17 17:27 Dose: 400 mg Sertraline HCl (Zoloft) 150 mg PO DAILY [facility] Valsartan (Diovan) 40 mg PO DAILY [facility] Last Admin: 03/09/17 08:39 Dose: 40 mg Zolpidem Tartrate (Ambien) 5 mg PO HS PRN PRN Reason: Insomnia Last Admin: 03/09/17 21:18 Dose: 5 mg - Skin Additional comments: ADDENDUM ATTENDING NOTE PATIENT SEEN AND EXAMINED. CASE DISCUSSED WITH RESIDENT. AGREE WITH FINDINGS AND PLAN.
[2017-03-09] MEDS: Emtricitabine-Tenofovir 200 mg-300 mg Tab PO SCH ×2 (08:36→08:37)
[2017-03-09 09:09] VITALS: RESP 18
--- NOTE | 2017-03-09 10:08 | PCM.PYCHPN ---
Psychiatric Progress Note - Psychiatric Progress Note Patient seen today, length of contact: discussed with team Patient Chief Complaint: i m okay Problems Identified/Issues Discussed: pt still c/o feeling depressed, but mood slightly improved. still wants to go to rehab and has been referred. family is now in contact with the team. cough is resolved. Medication Change: Yes Medical Record Reviewed: Yes Mental Status Examination - Cognitive Function Orientation: Person, Place, Situation, Time Memory: Intact Attention: WNL Concentration: WNL Association: WNL Fund of Knowledge: [facility] Decription of patient's judgement and insights: fair - Mood Mood: Depressed - Affect Affect: Blunted, Depressed - Speech Speech: Appropriate - Formal Thought Process Formal Thought Process: No Impairment - Suicidal Ideation Suicidal Ideation: No - Homicidal Ideation Homicidal Ideation: No Goal/Treatment Plan - Goal/Treatment Plan Need for Continued Stay: Remain at risks for inpatient hospitalization, Discharge may exacerbated symptoms Progress Toward Problem(s) and Goals/Treatment Plan: bipolar disorder opioid dependence continue current medications- increase zoloft to 150mg continue neurontin at current dose disposition planning- refer to inpt rehab discharge monday Estimated Date of D/C: 03/10/17
[2017-03-09 17:02] VITALS: O2SAT 74
[2017-03-09] MEDS: Albuterol HFA 90 mcg/actuation (8 g) IH PRN (17:33)
[2017-03-10] MEDS: Emtricitabine-Tenofovir 200 mg-300 mg Tab PO SCH (08:24)
[2017-03-10 09:17] VITALS: BP 108/60; PULSE 76; TEMP 96.4
--- NOTE | 2017-03-10 11:18 | PCM.PYCHDC ---
Mental Status Examination - Mental Status Examination Orientation: Person, Place, Situation, Time Memory: Intact Mood: Depressed Affect: Broad Speech: Appropriate Attention: WNL Concentration: WNL Association: WNL Fund of Knowledge: WNL Formal Thought Process: No Impairment Description of patient's judgement and insight: fair Psychotic Thoughts and Behaviors: denies a/v hallucinations Suicidal Ideation: No Current Homicidal Ideation?: No Plan: pt denies suicidal thoughts Discharge Summary - Discharge Note Reason for Hospitalization: pt reported depression, substance use Psychiatric History (includes Medical, Family, Personal Hx): history of bipolar disorder Consultations:: List each consultation separately and include: 1. Reason for request. 2. Findings. 3. Follow-up Consultations: seen by family medicine Summary of Hospital Course include:: 1. Description of specific treatment plan utilized for patients during their course of treatmen. 2. Summarize the time- course for resolution of acute symptoms and/or regressed behaviors. 3. Describe issues identified and worked on during hospitalization. 4. Describe medication utilized. 5. Describe medical problems identified and treated. 6. Reassessment of suicide risk Summary of Hospital Course: pt discharged from [facility] in the morning and presented at [facility] later same day. she states she was not sleeping while at the hospital and that she is depressed. she was having thoughts to harm herself. she states she was using 3-4 bags a day of heroin prior to her admission to the [facility]. her urine is positive for methadone. she is denying any withdrawal symptoms. she reports that she needs help with depression and with sleeping. she expresses that she wants to return to the [facility] program. hospital course: admitted to [facility] and oriented to the unit. seroquel titrated up to target mood symptoms. her zoloft was increased to target depression. she was seen by family medicine who managed her medical conditions. she was referred to in rehabs and placed on waiting lists. she was allowed to return to [facility] and agreeable to start his treatment. at the time of discharge she was denying any suicidal or homicidal thoughts. - Final Diagnosis (DSM 5) Condition upon Discharge: STABLE DSM 5: bipolar disorder opioid dependence Disposition: HOME/ ROUTINE Follow-up Treatment Plan: follow up with aftercare as directed take medications as prescribed do not use alcohol, tobacco or other illicit substances call 911 if any suicidal or homicidal thoughts follow up with the [facility] and family medicine regarding your medical problems. Prescriptions/Medication Reconciliation: Gabapentin [Neurontin] 600 mg PO TID #45 tab QUEtiapine [Seroquel] 100 mg PO BID #30 tab QUEtiapine [SEROquel] 300 mg PO HS #15 tab Sertraline [Zoloft] 150 mg PO DAILY #45 tab Zolpidem [Ambien] 5 mg PO HS PRN #15 tab PRN Reason: Insomnia - Smoking Cessation Smoking Cessation Medication prescribed: No - Antipsychotic Medications Pt discharged on 2 or more routine antipsychotic medications: No
[2017-03-10] MEDS: Benzocaine/Menthol (Cepacol) Lozenge PO PRN (12:33)
== END 2017-03-10 13:24 | disposition home or self-care (01) | DRG 885 ==
LOC: H.ER 12:17 → H.ERHOLD 15:37 → H.PSYCH 18:09
PROVIDERS: ADMIT Psychiatry & Neurology Psychiatry; ATTEND Psychiatry & Neurology Psychiatry
PROC: GZHZZZZ Group Psychotherapy (ICD-10-PCS; principal; 2017-02-21)
PROC: GZ56ZZZ Individual Psychotherapy, Supportive (ICD-10-PCS; 2017-02-21)
DX: F31.9 Bipolar disorder, unspecified (principal); F11.20 Opioid dependence, uncomplicated; R45.851 Suicidal ideations; I10 Essential (primary) hypertension; B18.2 Chronic viral hepatitis C; Z21 Asymptomatic human immunodeficiency virus [HIV] infection status; I34.1 Nonrheumatic mitral (valve) prolapse; J45.20 Mild intermittent asthma, uncomplicated; J44.9 Chronic obstructive pulmonary disease, unspecified; Z88.0 Allergy status to penicillin; G89.29 Other chronic pain; G62.9 Polyneuropathy, unspecified; F17.210 Nicotine dependence, cigarettes, uncomplicated; J40 Bronchitis, not specified as acute or chronic

== ENCOUNTER 2017-04-25 08:26 | Emergency (ER) | payer MEDICARE, MEDICAID ==
[2017-04-25 08:27] VITALS: BMI 23.3
[2017-04-25 08:36] VITALS: BP 100/72; PULSE 105; RESP 20; TEMP 98.2; O2SAT 97
--- NOTE | 2017-04-25 09:14 | ED PDOC ---
HPI: Skin/Bite Injury Time Seen by Provider: 04/25/17 09:03 Chief Complaint (Nursing): Abnormal Skin Integrity Additional Complaint(s): Patient is a 57 y/o F presenting with rash. Patient reports bug bites that she thinks might be mosquitos. She reports that the bites have gotten worse and she has been scratching. Patient reports that she was exposed to bed bugs but reports that she has washed her sheets in an attempt to remove them. Denies fever. Past Medical History Vital Signs: Last Vital Signs Temp 98.2 F 04/25/17 08:35 Pulse 105 H 04/25/17 08:35 Resp 20 04/25/17 08:35 BP 100/72 04/25/17 08:35 Pulse Ox 97 04/25/17 09:37 - Medical History PMH: Anemia, Anxiety, Asthma, Bipolar Disorder, Bronchitis, COPD, Depression, HIV, HTN, Mitral Valve Prolapse, Paranoia, Personality Disorder, Seizures ( withdral induced) Denies: Atrial Fibrillation, Cardia Arrhythmia, CHF, Diabetes, Emphysema, Hepatitis, Hypercholesterolemia, Peripheral Edema, Pneumonia, Pulmonary Embolism , Chronic Kidney Disease, Sickle Cell Disease, Sexually Transmitted Disease, Sleep Apnea, TIA - Surgical History Surgical History: Tonsillectomy Denies: Pacemaker - Family History Family History: States: Unknown Family Hx - Immunization History Hx Tetanus Toxoid Vaccination: Yes Hx Influenza Vaccination: Yes Hx Pneumococcal Vaccination: Yes - Home Medications Home Medications: Ambulatory Orders Medication Instructions Recorded Albuterol HFA [Ventolin HFA 90 2 puff IH Q4H PRN 02/21/17 mcg/actuation (8 g)] Emtricitabine/Tenofovir Diso 1 tab PO DAILY 02/21/17 [Truvada 200 MG-300 MG] Fluticasone/Salmeterol 250/50 1 puff IH Q12H 02/21/17 [Advair Diskus 250/50] Nevirapine [Viramune] 200 mg PO BID 02/21/17 Valsartan/Hydrochlorothiazide 1 tab PO DAILY 02/21/17 [Valsartan-Hctz 80-12.5 mg Tab] Calcium Carbonate [Oscal] 500 mg PO BIDWM tab 03/10/17 Cholecalciferol [Vitamin D 1000 IU] 1,000 iu PO DAILY tab 03/10/17 Gabapentin [Neurontin] 600 mg PO TID #45 tab 03/10/17 Oxymetazoline HCl [Nasal 1 spr NS Q12 PRN bottle 03/10/17 Decongestant 15 ml] QUEtiapine [SEROquel] 300 mg PO HS #15 tab 03/10/17 QUEtiapine [Seroquel] 100 mg PO BID #30 tab 03/10/17 Raltegravir Potassium [Isentress] 400 mg PO BID tab 03/10/17 Sertraline [Zoloft] 150 mg PO DAILY #45 tab 03/10/17 Valsartan [Diovan] 40 mg PO DAILY tab 03/10/17 Zolpidem [Ambien] 5 mg PO HS PRN #15 tab 03/10/17 Permethrin 5% [Permethrin] 1 appl TP DAILY #1 tube 04/25/17 - Allergies Allergies/Adverse Reactions: Allergies Allergy/AdvReac Type Severity Reaction Status Date / Time Penicillins Allergy pt reports Verified 02/11/17 12:23 seizures Review of Systems Constitutional: Negative for: Fever, Chills Cardiovascular: Negative for: Chest Pain Respiratory: Negative for: Cough, Shortness of Breath, SOB with Exertion Gastrointestinal: Negative for: Nausea, Vomiting, Abdominal Pain, Diarrhea, Constipation Genitourinary Female: Negative for: Dysuria, Frequency Skin: Positive for: Rash Neurological: Negative for: Weakness, Numbness Physical Exam - Reviewed Nursing Documentation Reviewed: Yes Vital Signs Reviewed: Yes - Physical Exam Appears: Positive for: Well, Non-toxic Head Exam: Positive for: ATRAUMATIC, NORMAL INSPECTION, NORMOCEPHALIC Skin: Positive for: Rash (diffuse rash consistent with bites to entire body with excoriations, involves interweb spaces of fingers) Eye Exam: Positive for: Normal appearance, EOMI, PERRL Neck: Positive for: Supple Extremity: Positive for: Normal ROM. Negative for: Tenderness Neurologic/Psych: Positive for: Alert, Gait (steady) - ECG O2 Sat by Pulse Oximetry: 97 Medical Decision Making Medical Decision Making: Rash is consistent with bed bugs vs scabies. Patient given information on both and instructed to follow-up with PMD. Given benadryl for pruritis. Discharged with permethrin rx. Disposition - Clinical Impression Clinical Impression: Bed bug bite - Disposition Disposition: Routine/Home Disposition Time: 09:11 Condition: GOOD Additional Instructions: Follow-up with PMD within 2 days. Return to ED if condition worsens. Wash all sheets, clothes, bedding and all fabric in hot water and dry on high. Use permethrin cream. Prescriptions: Permethrin 5% [Permethrin] 1 appl TP DAILY #1 tube Instructions: Scabies (ED), Bed Bugs (ED) Forms: [employer] (Czech)
== END 2017-04-25 09:23 | disposition home or self-care (01) ==
LOC: H.ER 08:26
DX: S30.860A Insect bite (nonvenomous) of lower back and pelvis, initial encounter (principal); W57.XXXA Bitten or stung by nonvenomous insect and other nonvenomous arthropods, initial encounter; Y92.89 Other specified places as the place of occurrence of the external cause

== ENCOUNTER 2017-06-01 07:08 | Emergency (ER) | payer MEDICARE, MEDICAID ==
[2017-06-01 07:19] VITALS: BMI 24.2
--- NOTE | 2017-06-01 07:43 | ED PDOC ---
HPI: Skin/Bite Injury Time Seen by Provider: 06/01/17 07:21 Chief Complaint (Nursing): Abnormal Skin Integrity Chief Complaint (Provider): Rash History Per: Patient History/Exam Limitations: no limitations Onset/Duration Of Symptoms: Days (x 3 months) Current Symptoms Are (Timing): Still Present Quality Of Symptoms: Itching Additional Complaint(s): Tanya is a 57 y/o female with a past medical history of HIV, who presents to the ED complaining of an itchy rash for 3 months. States she was given a cream at the hospital with no improvement. Denies any associated swelling, pain, shortness of breath, chest pain, headache, weakness, numbness, or tingling. No new changes in detergent, soap, or lotion. Patient reports living with her parents and no other family members are affected. Denies possibility of bed bugs or other bug bites. She has been scratching the affected areas (abdomen, neck, and extremities). No pain to the rash, no dc from them. Seen by pcp multiple times for it. PMD: Carlo Rogers Past Medical History Reviewed: Historical Data, Nursing Documentation, Vital Signs Vital Signs: Last Vital Signs Temp 99.2 F 06/01/17 07:21 Pulse 105 H 06/01/17 07:21 Resp 17 06/01/17 07:21 BP 169/110 H 06/01/17 07:21 Pulse Ox 98 06/01/17 08:11 - Medical History PMH: Anemia, Anxiety, Asthma, Bipolar Disorder, Bronchitis, COPD, Depression, HIV, HTN, Mitral Valve Prolapse, Paranoia, Personality Disorder, Seizures ( withdrawal induced) Denies: Atrial Fibrillation, Cardia Arrhythmia, CHF, Diabetes, Emphysema, Hepatitis, Hypercholesterolemia, Peripheral Edema, Pneumonia, Pulmonary Embolism , Chronic Kidney Disease, Sickle Cell Disease, Sexually Transmitted Disease, Sleep Apnea, TIA - Surgical History Surgical History: Tonsillectomy Denies: Pacemaker - Family History Family History: States: Unknown Family Hx - Social History Alcohol: None - Immunization History Hx Tetanus Toxoid Vaccination: Yes Hx Influenza Vaccination: Yes Hx Pneumococcal Vaccination: Yes - Home Medications Home Medications: Ambulatory Orders Medication Instructions Recorded Albuterol HFA [Ventolin HFA 90 2 puff IH Q4H PRN 02/21/17 mcg/actuation (8 g)] Emtricitabine/Tenofovir Diso 1 tab PO DAILY 02/21/17 [Truvada 200 MG-300 MG] Fluticasone/Salmeterol 250/50 1 puff IH Q12H 02/21/17 [Advair Diskus 250/50] Nevirapine [Viramune] 200 mg PO BID 02/21/17 Valsartan/Hydrochlorothiazide 1 tab PO DAILY 02/21/17 [Valsartan-Hctz 80-12.5 mg Tab] Calcium Carbonate [Oscal] 500 mg PO BIDWM tab 03/10/17 Cholecalciferol [Vitamin D 1000 IU] 1,000 iu PO DAILY tab 03/10/17 Gabapentin [Neurontin] 600 mg PO TID #45 tab 03/10/17 Oxymetazoline HCl [Nasal 1 spr NS Q12 PRN bottle 03/10/17 Decongestant 15 ml] QUEtiapine [SEROquel] 300 mg PO HS #15 tab 03/10/17 QUEtiapine [Seroquel] 100 mg PO BID #30 tab 03/10/17 Raltegravir Potassium [Isentress] 400 mg PO BID tab 03/10/17 Sertraline [Zoloft] 150 mg PO DAILY #45 tab 03/10/17 Valsartan [Diovan] 40 mg PO DAILY tab 03/10/17 Zolpidem [Ambien] 5 mg PO HS PRN #15 tab 03/10/17 Permethrin 5% [Permethrin] 1 appl TP DAILY #1 tube 04/25/17 DiphenhydrAMINE [Benadryl] 25 mg PO TID PRN 5 Days cap 06/01/17 predniSONE [predniSONE Tab] 20 mg PO BID 5 Days tab 06/01/17 - Allergies Allergies/Adverse Reactions: Allergies Allergy/AdvReac Type Severity Reaction Status Date / Time Penicillins Allergy pt reports Verified 06/01/17 07:27 seizures Review of Systems ROS Statement: Except As Marked, All Systems Reviewed And Found Negative Constitutional: Negative for: Fever, Chills Cardiovascular: Negative for: Chest Pain Respiratory: Negative for: Cough, Shortness of Breath Skin: Positive for: Rash (to abdomen, neck, and extremities), Other (Itching) Neurological: Negative for: Weakness, Numbness, Headache, Dizziness Physical Exam - Reviewed Nursing Documentation Reviewed: Yes Vital Signs Reviewed: Yes - Physical Exam Appears: Positive for: Well, Non-toxic, No Acute Distress Head Exam: Positive for: ATRAUMATIC, NORMAL INSPECTION, NORMOCEPHALIC Skin: Positive for: Warm, Dry, Rash (Mild scattered patches of blanching erythema, with no discharge, + Scabbing but no bleeding, in urticarial pattern. No induration. Affecting lower abdomen, neck, bilateral arms and lower extremities.) Eye Exam: Positive for: EOMI, Normal appearance, PERRL ENT: Positive for: Other (no tongue or swelling around mouth). Negative for: Nasal Congestion, Pharyngeal Erythema, Tonsillar Exudate, Tonsillar Swelling Neck: Positive for: Normal, Painless ROM, Supple Cardiovascular/Chest: Positive for: Regular Rate, Rhythm. Negative for: Edema, Murmur Respiratory: Positive for: Normal Breath Sounds. Negative for: Accessory Muscle Use, Respiratory Distress Gastrointestinal/Abdominal: Positive for: Soft. Negative for: Tenderness Back: Negative for: L CVA Tenderness, R CVA Tenderness, Vertebral Tenderness Extremity: Positive for: Normal ROM. Negative for: Tenderness, Pedal Edema, Deformity Neurologic/Psych: Positive for: Alert, Oriented - ECG O2 Sat by Pulse Oximetry: 98 (RA) Pulse Ox Interpretation: Normal - Progress ED Course And Treament: 906: Stable. AAOx3. Pain free. Chronic dermatitis. Medical Decision Making Medical Decision Making: Time: 7:45 Initial Plan: --Benadryl and Prednisone PO --Reevaluation Scribe Attestation: Documented by Christy Temple, acting as a scribe for Gavin Damon MD Provider Scribe Attestation: All medical record entries made by the Scribe were at my direction and personally dictated by me. I have reviewed the chart and agree that the record accurately reflects my personal performance of the history, physical exam, medical decision making, and the department course for this patient. I have also personally directed, reviewed, and agree with the discharge instructions and disposition. Disposition - Clinical Impression Clinical Impression: Dermatitis - Patient ED Disposition Is Patient to be Admitted: No Counseled Patient/Family Regarding: Diagnosis, Need For Followup, Rx Given - Disposition Referrals: [facility] [Outside] - 06/02/17 Disposition: Routine/Home Disposition Time: 09:08 Condition: STABLE Additional Instructions: Return if not better in 3 days. Prescriptions: DiphenhydrAMINE [Benadryl] 25 mg PO TID PRN 5 Days cap PRN Reason: Itching / Pruritus predniSONE [predniSONE Tab] 20 mg PO BID 5 Days tab Instructions: Dermatitis (ED)
[2017-06-01 09:48] VITALS: BP 132/74; PULSE 78; RESP 18; TEMP 98.6; O2SAT 99
== END 2017-06-01 09:48 | disposition home or self-care (01) ==
LOC: H.ER 07:08
DX: L30.9 Dermatitis, unspecified (principal); F31.9 Bipolar disorder, unspecified; F41.9 Anxiety disorder, unspecified; I10 Essential (primary) hypertension; I34.1 Nonrheumatic mitral (valve) prolapse; J44.9 Chronic obstructive pulmonary disease, unspecified; Z21 Asymptomatic human immunodeficiency virus [HIV] infection status; Z88.0 Allergy status to penicillin

== ENCOUNTER 2017-10-09 17:06 | Observation (INO) | payer MEDICARE, MEDICAID ==
[2017-10-09 17:07] VITALS: BMI 24.2
[2017-10-09 18:25] LABS: PARTIAL THROMBOPLASTIN TIME 25.1 Seconds (25.6-37.1); PROTHROMBIN TIME 11.2 Seconds (9.8-13.1)
[2017-10-09 18:31] LABS: ALB/GLOB RATIO 0.8 (1.0-2.1); ALBUMIN 3.8 g/dL (3.5-5.0); ALT/SGPT 38 U/L (9-52); AST/SGOT 46 U/L (14-36); BLOOD UREA NITROGEN 19 mg/dl (7-17); CALCIUM 8.6 mg/dL (8.4-10.2); GFR AFRICAN-AMERICAN > 60; GFR NON-AFRICAN AMERICAN > 60
--- NOTE | 2017-10-09 18:33 | RAD ---
HISTORY: Hypoxia. COMPARISON: 03/01/2017. FINDINGS: LUNGS: No active pulmonary disease. PLEURA: No significant pleural effusion identified, no pneumothorax apparent. CARDIOVASCULAR: No radiographic findings to suggest acute or significant cardiovascular disease. OSSEOUS STRUCTURES: No significant abnormalities. VISUALIZED UPPER ABDOMEN: Normal. OTHER FINDINGS: None. IMPRESSION: No active disease. No significant interval change compared to the prior examination(s).
[2017-10-09 18:40] LABS: BASO % 0.8 % (0.0-2.0); EOS % 0.6 % (0.0-4.0); HEMOGLOBIN 12.8 g/dL (12.0-16.0); LYMPH # 1.9 K/uL (1.0-4.3); LYMPH % 33.9 % (20.0-40.0); MEAN CELL VOLUME 85.4 fl (81.0-99.0); MEAN CORPUSCULAR HEMOGLOBIN 26.9 pg (27.0-31.0); MEAN CORPUSCULAR HGB CONC 31.5 g/dL (33.0-37.0); MEAN PLATELET VOLUME 9.9 fl (7.2-11.7); MONO # 0.4 K/uL (0.0-0.8); MONO % 6.9 % (0.0-10.0); NEUT # 3.3 K/uL (1.8-7.0); NEUT % 57.8 % (50.0-75.0); NRBC % 0.5 % (0.0-0.0); RBC 4.76 Mil/uL (3.80-5.20); RED CELL DISTRIBUTION WIDTH 17.3 % (11.5-14.5); WHITE BLOOD COUNT 5.7 K/uL (4.8-10.8)
--- NOTE | 2017-10-09 20:09 | ED PDOC ---
HPI: Psych/Substance Abuse Time Seen by Provider: 10/09/17 17:20 Chief Complaint (Nursing): Substance Abuse Chief Complaint (Provider): Substance abuse History Per: Patient, EMS History/Exam Limitations: no limitations Onset/Duration Of Symptoms: Hrs (today) Current Symptoms Are (Timing): Still Present Suicide/Self Injury Attempted (Context): None Associated Symptoms: denies: Suicidal Thoughts Involuntary Hold By: None Additional Complaint(s): Tanya Kilgore is a 57 year old female, with a past medical history of asthma, COPD, seizure and HTN, who was brought to the emergency department via ALS for possible substance abuse onset today. Per ALS, patient was found unresponsive and not breathing on the street by [place] [employer]. She was administered intranasal Narcan twice with minimal relief. ALS report on their arrival she was given IV narcan and that initiated some agonal breathing, they were on the process of ventilating and about to intubate when they gave one more dose of Narcan and became alert. ALS and [place] [employer] report that they did not cause puncture wound to right wrist, it was there [employer]. Patient was found with small paper bag containing unknown powder substance, [employer] recalled to evaluate illicit substance. Patient denies any opiate use. She states she had trouble breathing because of her asthma. Patient is well known to the ED for opiate use. She denies any fall or injury, headache, chest pain or weakness. History may be unreliable due to uncooperation and intoxication. PMD: None provided. Past Medical History Reviewed: Historical Data, Nursing Documentation, Vital Signs Vital Signs: Last Vital Signs Temp 98.4 F 10/09/17 17:09 Pulse 104 H 10/09/17 17:09 Resp 16 10/09/17 17:09 BP 143/87 10/09/17 17:09 Pulse Ox 94 L 10/09/17 17:09 - Medical History PMH: Anemia, Anxiety, Asthma, Bipolar Disorder, Bronchitis, COPD, Depression, HIV, HTN, Mitral Valve Prolapse, Paranoia, Personality Disorder, Seizures ( withdrawal induced) Denies: Atrial Fibrillation, Cardia Arrhythmia, CHF, Diabetes, Emphysema, Hepatitis, Hypercholesterolemia, Peripheral Edema, Pneumonia, Pulmonary Embolism , Chronic Kidney Disease, Sickle Cell Disease, Sexually Transmitted Disease, Sleep Apnea, TIA - Surgical History Surgical History: Tonsillectomy Denies: Pacemaker - Family History Family History: States: Unknown Family Hx - Immunization History Hx Tetanus Toxoid Vaccination: Yes Hx Influenza Vaccination: Yes Hx Pneumococcal Vaccination: Yes - Home Medications Home Medications: Ambulatory Orders Medication Instructions Recorded Albuterol HFA [Ventolin HFA 90 2 puff IH Q4H PRN 02/21/17 mcg/actuation (8 g)] Emtricitabine/Tenofovir Diso 1 tab PO DAILY 02/21/17 [Truvada 200 MG-300 MG] Fluticasone/Salmeterol 250/50 1 puff IH Q12H 02/21/17 [Advair Diskus 250/50] Nevirapine [Viramune] 200 mg PO BID 02/21/17 Valsartan/Hydrochlorothiazide 1 tab PO DAILY 02/21/17 [Valsartan-Hctz 80-12.5 mg Tab] Calcium Carbonate [Oscal] 500 mg PO BIDWM tab 03/10/17 Cholecalciferol [Vitamin D 1000 IU] 1,000 iu PO DAILY tab 03/10/17 Gabapentin [Neurontin] 600 mg PO TID #45 tab 03/10/17 Oxymetazoline HCl [Nasal 1 spr NS Q12 PRN bottle 03/10/17 Decongestant 15 ml] QUEtiapine [SEROquel] 300 mg PO HS #15 tab 03/10/17 QUEtiapine [Seroquel] 100 mg PO BID #30 tab 03/10/17 Raltegravir Potassium [Isentress] 400 mg PO BID tab 03/10/17 Sertraline [Zoloft] 150 mg PO DAILY #45 tab 03/10/17 Valsartan [Diovan] 40 mg PO DAILY tab 03/10/17 Zolpidem [Ambien] 5 mg PO HS PRN #15 tab 03/10/17 Permethrin 5% [Permethrin] 1 appl TP DAILY #1 tube 04/25/17 DiphenhydrAMINE [Benadryl] 25 mg PO TID PRN 5 Days cap 06/01/17 predniSONE [predniSONE Tab] 20 mg PO BID 5 Days tab 06/01/17 - Allergies Allergies/Adverse Reactions: Allergies Allergy/AdvReac Type Severity Reaction Status Date / Time Penicillins Allergy pt reports Verified 10/09/17 17:08 seizures Review of Systems ROS Statement: Except As Marked, All Systems Reviewed And Found Negative Constitutional: Negative for: Other (fall or injury) Cardiovascular: Negative for: Chest Pain Neurological: Negative for: Weakness, Headache Psych: Positive for: Other (substance abuse) Physical Exam - Reviewed Nursing Documentation Reviewed: Yes Vital Signs Reviewed: Yes - Physical Exam Appears: Negative for: Well (disheveled and unkempt. Appears tired.) Head Exam: Positive for: ATRAUMATIC, NORMOCEPHALIC Skin: Positive for: Warm, Dry, Pallor. Negative for: Normal Color (Right wrist demonstrates fresh puncture wound with some dry blood surrounding.) Respiratory: Positive for: Rhonchi. Negative for: Respiratory Distress Neurologic/Psych: Positive for: Alert, Oriented (x3), Mood/Affect (flat), Other (mildly slurred speech). Negative for: Motor/Sensory Deficits - Laboratory Results Result Diagrams: 10/09/17 18:05 10/09/17 18:05 - ECG O2 Sat by Pulse Oximetry: 94 (RA) Pulse Ox Interpretation: Abnormal Medical Decision Making Medical Decision Making: Initial Impression: substance abuse Initial Plan: --EKG --Alcohol serum --CMP --Drug screen, urine --Lact Acid, plasma --Magnesium --Phosphorus --Urine dipstick --CBC w/ differential --PTT --PT --Chest portable [RAD] --Glucose, Blood, POC --O2 via Nasal cannula --Reevaluation Scribe Attestation: Documented by Wilder Chen, acting as a scribe for Verenice Friedman MD Provider Scribe Attestation: All medical record entries made by the Scribe were at my direction and personally dictated by me. I have reviewed the chart and agree that the record accurately reflects my personal performance of the history, physical exam, medical decision making, and the department course for this patient. I have also personally directed, reviewed, and agree with the discharge instructions and disposition. Disposition - Disposition
--- NOTE | 2017-10-09 22:07 | CP.PCM.HP ---
History of Present Illness - History of Present Illness History of Present Illness: 57 y/o F with PMH of HTN, Intermittent Asthma, HIV (last CD4 330 on 03/22/17), Hepatitis C admitted for overdose, requiring high doses of narcan. History obtained from patient as well as EMR. At time of interview patient is somnolent but arousable to sound, responding with slurred speech, appropriately. She is calm, oriented x 3. Reports she took Xanax, unable to state how much. The Xanax belonged to her mother. She denies any other drug use, no etoh use. Her PCP is Keysha Blackwood, endorses that he does not prescribe her Xanax. She does not take any medications. She was falling asleep during the interview. PMH: HIV, HCV, polysubstance abuse, Asthma, HTN Medications: as per patient none Allergies: as per chart: PCN Surgical hx: denies Social: +benzodiazepenes, denies heroin, marijuana, cocaine, tobacco recently. As per EMR: hx of heroin abuse. LMP: unable to state Family hx: unknown Present on Admission - Present on Admission Any Indicators Present on Admission: No Review of Systems - Review of Systems Systems not reviewed;Unavailable: Intoxicated Past Patient History - Infectious Disease Hx of Infectious Diseases: None - Past Medical History & Family History Past Medical History?: Yes - Past Social History Smoking Status: Light Smoker < 10 Cigarettes Daily - CARDIAC Hx Atrial Fibrillation: No Hx Cardia Arrhythmia: No Hx Congestive Heart Failure: No Hx Hypercholesterolemia: No Hx Hypertension: Yes Hx Mitral Valve Prolapse: Yes Hx Pacemaker: No Hx Peripheral Edema: No - PULMONARY Hx Asthma: Yes Hx Bronchitis: Yes Hx Chronic Obstructive Pulmonary Disease (COPD): Yes Hx Emphysema: No Hx Pneumonia: No Hx Pulmonary Embolism: No Hx Sleep Apnea: No - NEUROLOGICAL Hx Seizures: Yes (withdrawal induced) Hx Transient Ischemic Attacks (TIA): No - HEENT Hx HEENT Problems: No - RENAL Hx Chronic Kidney Disease: No - ENDOCRINE/METABOLIC Hx Endocrine Disorders: No - HEMATOLOGICAL/ONCOLOGICAL Hx Anemia: Yes Hx Human Immunodeficiency Virus (HIV): Yes Hx Sickle Cell Disease: No - INTEGUMENTARY Hx Dermatological Problems: No - MUSCULOSKELETAL/RHEUMATOLOGICAL Hx Musculoskeletal Disorders: No - GASTROINTESTINAL Hx Gastrointestinal Disorders: No - GENITOURINARY/GYNECOLOGICAL Hx Sexually Transmitted Disorders: No - PSYCHIATRIC Hx Anxiety: Yes Hx Bipolar Disorder: Yes Hx Depression: Yes Hx Paranoia: Yes - SURGICAL HISTORY Hx Tonsillectomy: Yes - ANESTHESIA Hx Anesthesia: Yes Hx Anesthesia Reactions: No Meds Allergies/Adverse Reactions: Allergies Allergy/AdvReac Type Severity Reaction Status Date / Time Penicillins Allergy pt reports Verified 10/09/17 17:08 seizures Physical Exam - Constitutional Appears: Unkempt, Confused (somnolent) - Head Exam Head Exam: ATRAUMATIC, NORMAL INSPECTION, NORMOCEPHALIC - Eye Exam Eye Exam: Normal appearance Pupil Exam: Fixed, Miosis - ENT Exam ENT Exam: Mucous Membranes Dry - Neck Exam Neck exam: Positive for: Normal Inspection - Respiratory Exam Respiratory Exam: Clear to Auscultation Bilateral. absent: Accessory Muscle Use , Rales, Rhonchi, Wheezes, Respiratory Distress Additional comments: shallow breathing, 10 breaths per minute, on O2 NC, 98% pulse ox - Cardiovascular Exam Cardiovascular Exam: REGULAR RHYTHM, +S1, +S2. absent: Bradycardia, Tachycardia , Irregular Rhythm - GI/Abdominal Exam GI & Abdominal Exam: Diminished Bowel Sounds, Soft. absent: Distended, Guarding , Rigid, Tenderness - Extremities Exam Extremities exam: Positive for: normal inspection. Negative for: pedal edema Additional comments: dirt on feet bilaterally - Neurological Exam Neurological exam: Altered - Skin Additional comments: lesions, multiple scabbed over- anterior chest, right shoulder, mid back Results - Vital Signs Recent Vital Signs: Last Vital Signs Temp 98.4 F 10/09/17 17:09 Pulse 104 H 10/09/17 17:09 Resp 16 10/09/17 17:09 BP 143/87 10/09/17 17:09 Pulse Ox 94 L 10/09/17 20:23 - Labs Result Diagrams: 10/09/17 18:05 10/09/17 18:05 Labs: Laboratory Results - last 24 hr 10/09/17 10/09/17 10/09/17 17:22 18:05 18:05 WBC 5.7 RBC 4.76 Hgb 12.8 Hct 40.7 MCV 85.4 D MCH 26.9 L MCHC 31.5 L RDW 17.3 H Plt Count 127 L MPV 9.9 Neut % (Auto) 57.8 Lymph % (Auto) 33.9 [place] % (Auto) 6.9 Eos % (Auto) 0.6 Baso % (Auto) 0.8 Neut # (Auto) 3.3 Lymph # (Auto) 1.9 [place] # (Auto) 0.4 Eos # (Auto) 0.0 Baso # (Auto) 0.0 PT INR APTT Sodium 143 Potassium 3.5 L Chloride 108 H Carbon Dioxide 21 L Anion Gap 18 BUN 19 H Creatinine 0.9 Est GFR ( Amer) > 60 Est GFR (Non-Af Amer) > 60 POC Glucose (mg/dL) 204 H Random Glucose 208 H Lactic Acid Calcium 8.6 Phosphorus 3.6 Magnesium 1.9 Total Bilirubin 0.4 AST 46 H D ALT 38 Alkaline Phosphatase 86 Total Protein 8.5 H Albumin 3.8 Globulin 4.7 H Albumin/Globulin Ratio 0.8 L Alcohol, Quantitative < 10 10/09/17 10/09/17 18:05 18:17 WBC RBC Hgb Hct MCV MCH MCHC RDW Plt Count MPV Neut % (Auto) Lymph % (Auto) [place] % (Auto) Eos % (Auto) Baso % (Auto) Neut # (Auto) Lymph # (Auto) [place] # (Auto) Eos # (Auto) Baso # (Auto) PT 11.2 INR 1.0 APTT 25.1 L Sodium Potassium Chloride Carbon Dioxide Anion Gap BUN Creatinine Est GFR ( Amer) Est GFR (Non-Af Amer) POC Glucose (mg/dL) Random Glucose Lactic Acid 1.2 Calcium Phosphorus Magnesium Total Bilirubin AST ALT Alkaline Phosphatase Total Protein Albumin Globulin Albumin/Globulin Ratio Alcohol, Quantitative Assessment & Plan (1) Overdose Assessment and Plan: 57 y/o F with PMH of HTN, Intermittent Asthma, HIV (last CD4 330 on 03/22/17), Hepatitis C admitted for overdose, requiring high doses of narcan. Patient is somnolent but arousable in ED. States she took xanax. Denies any other substance abuse prior to arrival. UTOX pending, blood alcohol level negative will admit for observation monitor for withdrawal Status: Acute (2) HIV (human immunodeficiency virus infection) Assessment and Plan: last CD4 330 on 03/22/17 non compliant with medications Status: Chronic (3) Hepatitis C Assessment and Plan: AST: 46, ALT WNL outpatient mangement Status: Chronic (4) Schizoaffective disorder, bipolar type Assessment and Plan: managed by keysha blackwood, however last visit outpatient was 07/03/2018 -previously rx seroquel, cymbalta, elavil. Status: Chronic (5) Skin lesion due to intravenous drug abuse Assessment and Plan: anterior chest- multple lesions, right anterior shoulder, mid back ,upper abdomen, no lesions noted of legs. scabbed over, dry no discharge, no warmth. Status: Chronic (6) DVT prophylaxis Assessment and Plan: lovenox Status: Acute
[2017-10-09] MEDS ORDERED: Albuterol HFA 90 mcg/actuation (8 g) IH PRN (23:32)
[2017-10-09] MEDS ORDERED: Alum-Mag Hydrox-Simethicone Susp (30 mL) PO PRN (23:34)
[2017-10-10 06:53] LABS: CALCIUM 8.9 mg/dL (8.4-10.2)
[2017-10-10 06:59] LABS: BARBITURATES, UR NEGATIVE (NEGATIVE); BENZODIAZEPINES, UR POSITIVE (NEGATIVE); OPIATES, UR POSITIVE (NEGATIVE); PHENCYCLIDINE, UR NEGATIVE (NEGATIVE)
[2017-10-10] MEDS ORDERED: Multivitamin With Minerals Tab PO SCH (09:00)
[2017-10-10] MEDS ORDERED: Enoxaparin 40 mg Syringe SC SCH (09:00)
--- NOTE | 2017-10-10 10:02 | CP.PCM.CON ---
History of Present Illness - History of Present Illness History of Present Illness: Psychiatry consult note CC: "I don't want to live anymore." HPI: 57 yo female w/ h/o HIV, HTN, Asthma, Polysubstance abuse, Bipolar vs schizoaffective disorder, presents s/p suicide attempt by overdosing on Xanax 6 mg, 3 bags of heroin and crack use. Patient reports that she needs help because she does not want to live anymore. She denied current active suicidal ideation and is able to contract for safety while in the hospital. She reports non-compliance with her medications (Zoloft, Trazodone, Seroquel) for at least 1 month. She reports depressed mood, hopelessness, sleep/appetite, disturbances. Denies AH/VH/paranoia/delusions. No HI. She is agreeable to voluntary psychiatric admission at this time. PPHx: Multiple past psychiatric admissions for substance abuse and bipolar disorder vs schizoaffective disorder. She is non-compliant with Zoloft, Trazodone and Seroquel. PMH: HIV, HCV, polysubstance abuse, Asthma, HTN Allergies: PCN Surgical hx: denies Social: +benzodiazepine/ heroin/ cocaine abuse; lives w/ her parents MSE: A + O x 3, calm, cooperative, tearful, speech normal rate/volume, psychomotor normal, mood- depressed, affect- depressed, thought process- linear/ coherent, thought content- no delusions, no AH/VH, +Recent suicide attempt, denies current active SI/plan/intent, no HI, fair I, poor J Impression: 57 yo female w/ Bipolar Disorder w/ psychotic features vs. Schizoaffective Disorder, polysubstance abuse, presents s/p suicide attempt. Patient needs inpatient psychiatric admission when she is medically stable. -Voluntary psychiatric admission indicated, if patient is not agreeable, patient should be screened for involuntary psychiatric admission -Can restart Seroquel at 100 mg PO HS and Zoloft 50 mg PO Daily, when patient is medically stable -Treat for opioid withdrawal symptoms: Clonidine 0.1 mg Q8 hr x 3 days, PRN Imodium, PRN Motrin, PRN Zofran, PRN Maalox, if not medically contraindicated Past Patient History - Infectious Disease Hx of Infectious Diseases: None - Past Medical History & Family History Past Medical History?: Yes - Past Social History Smoking Status: Light Smoker < 10 Cigarettes Daily - CARDIAC Hx Atrial Fibrillation: No Hx Cardia Arrhythmia: No Hx Congestive Heart Failure: No Hx Hypercholesterolemia: No Hx Hypertension: Yes Hx Mitral Valve Prolapse: Yes Hx Pacemaker: No Hx Peripheral Edema: No - PULMONARY Hx Asthma: Yes Hx Bronchitis: Yes Hx Chronic Obstructive Pulmonary Disease (COPD): Yes Hx Emphysema: No Hx Pneumonia: No Hx Pulmonary Embolism: No Hx Sleep Apnea: No - NEUROLOGICAL Hx Seizures: Yes (withdrawal induced) Hx Transient Ischemic Attacks (TIA): No - HEENT Hx HEENT Problems: No - RENAL Hx Chronic Kidney Disease: No - ENDOCRINE/METABOLIC Hx Endocrine Disorders: No - HEMATOLOGICAL/ONCOLOGICAL Hx Anemia: Yes Hx Human Immunodeficiency Virus (HIV): Yes Hx Sickle Cell Disease: No - INTEGUMENTARY Hx Dermatological Problems: No - MUSCULOSKELETAL/RHEUMATOLOGICAL Hx Musculoskeletal Disorders: No - GASTROINTESTINAL Hx Gastrointestinal Disorders: No - GENITOURINARY/GYNECOLOGICAL Hx Sexually Transmitted Disorders: No - PSYCHIATRIC Hx Anxiety: Yes Hx Bipolar Disorder: Yes Hx Depression: Yes Hx Paranoia: Yes - SURGICAL HISTORY Hx Tonsillectomy: Yes - ANESTHESIA Hx Anesthesia: Yes Hx Anesthesia Reactions: No Meds Allergies/Adverse Reactions: Allergies Allergy/AdvReac Type Severity Reaction Status Date / Time Penicillins Allergy pt reports Verified 10/09/17 17:08 seizures - Medications Medications: Current Medications Al Hydrox/Mg Hydrox/Simethicone (Maalox Plus 30 Ml) 30 ml PO QID PRN PRN Reason: Abdominal Discomfort Albuterol (Ventolin Hfa 90 Mcg/Actuation (8 G)) 2 puff IH Q4H PRN PRN Reason: Shortness of Breath Last Admin: 10/10/17 09:07 Dose: 2 puff Enoxaparin Sodium (Lovenox) 40 mg SC DAILY [facility] PRN Reason: Protocol Last Admin: 10/10/17 09:06 Dose: 40 mg Ibuprofen (Motrin Tab) 800 mg PO Q6 PRN PRN Reason: Pain, Mild (1-3) Stop: 10/12/17 23:35 Last Admin: 10/10/17 08:29 Dose: 800 mg Loperamide HCl (Imodium) 2 mg PO Q4 PRN PRN Reason: After Loose Bowel Movement Multivitamins/Minerals (Therapeutic-M Tab) 1 tab PO DAILY [facility] Last Admin: 10/10/17 09:05 Dose: 1 tab Results - Vital Signs Recent Vital Signs: Last Vital Signs Temp 98.9 F 10/10/17 08:29 Pulse 92 H 10/10/17 07:53 Resp 18 10/10/17 07:53 BP 115/73 10/10/17 07:53 Pulse Ox 95 10/10/17 07:53 - Labs Result Diagrams: 10/09/17 18:05 10/10/17 05:45 Labs: Laboratory Results - last 24 hr 10/09/17 10/09/17 10/09/17 17:22 18:05 18:05 WBC 5.7 RBC 4.76 Hgb 12.8 Hct 40.7 MCV 85.4 D MCH 26.9 L MCHC 31.5 L RDW 17.3 H Plt Count 127 L MPV 9.9 Neut % (Auto) 57.8 Lymph % (Auto) 33.9 [place] % (Auto) 6.9 Eos % (Auto) 0.6 Baso % (Auto) 0.8 Neut # (Auto) 3.3 Lymph # (Auto) 1.9 [place] # (Auto) 0.4 Eos # (Auto) 0.0 Baso # (Auto) 0.0 PT INR APTT Sodium 143 Potassium 3.5 L Chloride 108 H Carbon Dioxide 21 L Anion Gap 18 BUN 19 H Creatinine 0.9 Est GFR ( Amer) > 60 Est GFR (Non-Af Amer) > 60 POC Glucose (mg/dL) 204 H Random Glucose 208 H Lactic Acid Calcium 8.6 Phosphorus 3.6 Magnesium 1.9 Total Bilirubin 0.4 AST 46 H D ALT 38 Alkaline Phosphatase 86 Total Protein 8.5 H Albumin 3.8 Globulin 4.7 H Albumin/Globulin Ratio 0.8 L Urine Opiates Screen Urine Methadone Screen Ur Barbiturates Screen Ur Phencyclidine Scrn Ur Amphetamines Screen U Benzodiazepines Scrn U Oth Cocaine Metabols U Cannabinoids Screen Alcohol, Quantitative < 10 10/09/17 10/09/17 10/10/17 18:05 18:17 01:37 WBC RBC Hgb Hct MCV MCH MCHC RDW Plt Count MPV Neut % (Auto) Lymph % (Auto) [place] % (Auto) Eos % (Auto) Baso % (Auto) Neut # (Auto) Lymph # (Auto) [place] # (Auto) Eos # (Auto) Baso # (Auto) PT 11.2 INR 1.0 APTT 25.1 L Sodium Potassium Chloride Carbon Dioxide Anion Gap BUN Creatinine Est GFR ( Amer) Est GFR (Non-Af Amer) POC Glucose (mg/dL) 106 Random Glucose Lactic Acid 1.2 Calcium Phosphorus Magnesium Total Bilirubin AST ALT Alkaline Phosphatase Total Protein Albumin Globulin Albumin/Globulin Ratio Urine Opiates Screen Urine Methadone Screen Ur Barbiturates Screen Ur Phencyclidine Scrn Ur Amphetamines Screen U Benzodiazepines Scrn U Oth Cocaine Metabols U Cannabinoids Screen Alcohol, Quantitative 10/10/17 10/10/17 05:45 06:30 WBC RBC Hgb Hct MCV MCH MCHC RDW Plt Count MPV Neut % (Auto) Lymph % (Auto) [place] % (Auto) Eos % (Auto) Baso % (Auto) Neut # (Auto) Lymph # (Auto) [place] # (Auto) Eos # (Auto) Baso # (Auto) PT INR APTT Sodium 146 Potassium 4.0 Chloride 107 Carbon Dioxide 26 Anion Gap 17 BUN 23 H Creatinine 1.2 Est GFR ( Amer) 56 Est GFR (Non-Af Amer) 46 POC Glucose (mg/dL) Random Glucose 94 Lactic Acid Calcium 8.9 Phosphorus Magnesium Total Bilirubin AST ALT Alkaline Phosphatase Total Protein Albumin Globulin Albumin/Globulin Ratio Urine Opiates Screen Positive H Urine Methadone Screen Negative Ur Barbiturates Screen Negative Ur Phencyclidine Scrn Negative Ur Amphetamines Screen Negative U Benzodiazepines Scrn Positive U Oth Cocaine Metabols Positive H U Cannabinoids Screen Negative Alcohol, Quantitative
[2017-10-10 11:55] VITALS: TEMP 98.8
--- NOTE | 2017-10-10 12:08 | CP.PCM.PN ---
Subjective - Date & Time of Evaluation Date of Evaluation: 10/10/17 Time of Evaluation: 11:59 - Subjective Subjective: 57 year old female with PMH of HTN, Intermittent asthma, HIV and Hep C seen at bedside after being admitted through the ED last night for overdose. Patient states that yesterday she took Klonopin, smoked crack, snorted heroin and then took ten Xanax pills because she couldn't sleep. Patient denies any suicidal ideation at this time. Is AAO x 3 and NAD, resting in bed at time of visit. Also states that she is slightly short of breath due to her asthma at this time but says that she does not take anything for it at home and has not had any recent exacerbations or asthma attacks. She also denies taking any at home medication at this time. States that she currently has a headache. Denies any further complaints at this time. Denies any recent N/V/F/C/CP/SOB/D/posterior calf pain when squeezed. Objective - Vital Signs/Intake and Output Vital Signs (last 24 hours): Temp Pulse Resp BP Pulse Ox 98.8 F 84 18 125/80 97 10/10/17 11:54 10/10/17 11:54 10/10/17 11:54 10/10/17 11:54 10/10/17 11:54 - Medications Medications: Current Medications Al Hydrox/Mg Hydrox/Simethicone (Maalox Plus 30 Ml) 30 ml PO QID PRN PRN Reason: Abdominal Discomfort Albuterol (Ventolin Hfa 90 Mcg/Actuation (8 G)) 2 puff IH Q4H PRN PRN Reason: Shortness of Breath Last Admin: 10/10/17 09:07 Dose: 2 puff Enoxaparin Sodium (Lovenox) 40 mg SC DAILY [facility] PRN Reason: Protocol Last Admin: 10/10/17 09:06 Dose: 40 mg Ibuprofen (Motrin Tab) 800 mg PO Q6 PRN PRN Reason: Pain, Mild (1-3) Stop: 10/12/17 23:35 Last Admin: 10/10/17 08:29 Dose: 800 mg Loperamide HCl (Imodium) 2 mg PO Q4 PRN PRN Reason: After Loose Bowel Movement Multivitamins/Minerals (Therapeutic-M Tab) 1 tab PO DAILY [facility] Last Admin: 10/10/17 09:05 Dose: 1 tab - Labs Labs: 10/09/17 18:05 10/10/17 05:45 PT 11.2 Seconds (9.8-13.1) 10/09/17 18:05 INR 1.0 (0.9-1.2) 10/09/17 18:05 APTT 25.1 Seconds (25.6-37.1) L 10/09/17 18:05 - Constitutional Appears: Well, Non-toxic, No Acute Distress - Head Exam Head Exam: ATRAUMATIC, NORMOCEPHALIC - Eye Exam Eye Exam: EOMI, PERRL Pupil Exam: PERRL - ENT Exam ENT Exam: Mucous Membranes Moist - Respiratory Exam Respiratory Exam: NORMAL BREATHING PATTERN - GI/Abdominal Exam GI & Abdominal Exam: absent: Distended, Firm, Guarding, Rigid, Tenderness - Rectal Exam Rectal Exam: Deferred - Extremities Exam Additional comments: Multiple scabs noted to arms, legs and torso of patient's body - Neurological Exam Neurological Exam: Alert, Awake, Oriented x3 - Psychiatric Exam Psychiatric exam: Normal Affect, Normal Mood - Skin Skin Exam: Intact, Normal Color, Warm Assessment and Plan - Assessment and Plan (Free Text) Assessment: 57 year old female with PMH of HTN, Intermittent asthma, HIV and Hep C seen at bedside after being admitted through the ED last night for overdose Plan: 1. Polysubstance Abuse - Tox screen: Opiates (+), Benzodiazepines (+), Cocaine (+) - Meds per Psych recs - Wound care consult placed 2. Suicidal Ideation - Psychology consult appreciated - Dr. Clifton - Voluntary psychiatric admission indicated - Medications started per Psych recs 3. HTN - Asymptomatic - Controlled - BP 125/80 - EKG: Sinus tachycardia, otherwise normal EKG - Vital signs q4h 4. Intermittent Asthma - Asymptomatic - CXR: No active disease. No significant interval change compared to the prior examinations - Albuterol 2 puff IH q4h prn shortness of breath 5. HIV - Last CD4 330 on 03/22/17 6. Hepatitis C - Chronic - Asymptomatic - Monitored 7. DVT prophylaxis - Lovenox 40 mg SC daily
[2017-10-10 16:11] VITALS: BP 132/78; PULSE 79; RESP 17; O2SAT 98
--- NOTE | 2017-10-10 21:25 | CARD ---
APPROVED REPORT EKG Measurement Heart [id number] <Conclusion> Sinus tachycardia Otherwise normal ECG
== END 2017-10-10 18:30 ==
LOC: H.ER 17:06 → H.ERHOLD 20:58 → H.TEL 10-10 03:30
PROVIDERS: ADMIT Family Medicine Geriatric Medicine; ATTEND Family Medicine Geriatric Medicine
DX: T42.4X2A Poisoning by benzodiazepines, intentional self-harm, initial encounter (principal); R40.0 Somnolence; B19.20 Unspecified viral hepatitis C without hepatic coma; Z91.14 Patient's other noncompliance with medication regimen; B18.2 Chronic viral hepatitis C; F25.0 Schizoaffective disorder, bipolar type; L98.9 Disorder of the skin and subcutaneous tissue, unspecified; I10 Essential (primary) hypertension; J45.20 Mild intermittent asthma, uncomplicated; T40.1X2A Poisoning by heroin, intentional self-harm, initial encounter; T40.5X2A Poisoning by cocaine, intentional self-harm, initial encounter; F14.10 Cocaine abuse, uncomplicated; F17.210 Nicotine dependence, cigarettes, uncomplicated; I34.1 Nonrheumatic mitral (valve) prolapse; R51 Headache; F11.10 Opioid abuse, uncomplicated; F13.10 Sedative, hypnotic or anxiolytic abuse, uncomplicated; R00.0 Tachycardia, unspecified; Z21 Asymptomatic human immunodeficiency virus [HIV] infection status; Z88.0 Allergy status to penicillin; J44.9 Chronic obstructive pulmonary disease, unspecified; F41.9 Anxiety disorder, unspecified; F31.9 Bipolar disorder, unspecified

== ENCOUNTER 2017-10-10 18:46 | Inpatient (IN) | payer MEDICARE, MEDICAID ==
[2017-10-09 17:07] VITALS: BMI 24.2
[2017-10-10] MEDS ORDERED: DiphenhydrAMINE 50 mg/ml Inj IM PRN (19:21)
[2017-10-10] MEDS ORDERED: Alum-Mag Hydrox-Simethicone Susp (30 mL) PO PRN (19:21)
[2017-10-10] MEDS ORDERED: Magnesium Hydroxide Susp 30 ml UD PO PRN (19:21)
--- NOTE | 2017-10-10 19:32 | PCM.BM ---
<Carey Craig - Last Filed: 10/10/17 19:29> Treatment Plan Problems - Problems identified on initial assessmt Hopelessness/Helplessness Date Initiated: 10/10/17 Time Initiated: 19:30 Assessment reference: NA Status: Active Altered Sleep Patterns Date Initiated: 10/10/17 Time Initiated: 19:30 Assessment reference: NA Status: Active Treatment assets and liabiliti Patient Assests: adapts well, cooperative, self-reliant, ADL independent, good support system, negotiates basic needs, cognitively intact, strong gregory Patient Liabilities: relationship conflicts (mother has alzheimers), substance abuse - Milieu Protocol Maintain good personal hygiene: daily Encourage regular showers, daily Remind patient to perform daily oral care, daily Assist patient to perform ADL's Maintain personal safety: every shift Educate patient to report safety concerns to staff, every shift Monitor environment for contraband/sharps Medication safety: Monitor for expected outcome, potential side effects: every shift, Assess barriers to learning: every shift, Assess readiness for medication education: every shift <Marleen Clifton - Last Filed: 10/11/17 08:08> - Diagnosis (1) Bipolar 1 disorder Status: Acute Interventions: Medication management, Individual and group therapy, Psychoeducation 10/11/17 08:09 (2) Polysubstance abuse Status: Chronic Interventions: Medication management, Individual and group therapy, Psychoeducation 10/11/17 08:09 <Lois Gramajo M - Last Filed: 10/11/17 15:29> Family Contact Family involvement: Family/SO is involved Family contact: Patient agrees to contact, Patient declines to allow family contact at present Family contact name: Carlo - father Family contacted how many times per week?: 2 Family contact comment: [phone] - Outside Agency [facility] involvment: Information-sharing Agency contact name: Joanne- sample case porter Agency contact number: [facility] involvment: Information-sharing Agency contact name: ROSIO Rogers Agency contact number: [phone] Discharge/Continuing Care - Education Needs Education Needs: Family Medication, Family Diagnosis/Disease Process, Family Coping Skills, Family Community resources, Family Health Practices/Safety, Family Personal Hygiene/Grooming, Family Aftercare Safety Plan, Patient Medication, Patient Diagnosis/Disease Process, Patient Coping Skills, Patient Community resources, Patient Health Practices/Safety, Patient Personal Hygiene/ Grooming, Patient Aftercare Safety Plan - Discharge Discharge Criteria: Tolerates medication w/o severe side effects, Free of Suicidal thoughts, Normal sleep pattern, Ability to care for self, Reduction of target symptoms Discharge to:: Home, With Family - Additional Comments 10/11/17 15:24 Pt seen and discussed in team meeting. Reason for admission reviewed. Pt reported 'I wanted to ." Pt reported she attempted to overdose on heroin, crack, Xanax and Klonopin. Pt reported her suicide attempt was planned. Pt identified her mother's cognitive impairment as the main trigger and stated "I can't deal with her anymore." Pt's medications reviewed and discussed. Pt's social and medical issues reviewed. Tx plan reviewed and pt is agreeable. Pt provided auto service writer with verbal consent to contact her fatherCarlo for additional collateral information. SW to continue to follow case. - Treatment Team Participation Discussed with Family/SO: No Was Patient/Family/SO present at Treatment Team Meeting: Yes
[2017-10-10] MEDS ORDERED: Albuterol HFA 90 mcg/actuation (8 g) IH PRN (20:59)
[2017-10-11 07:20] LABS: T4 8.17 ug/dl (5.5-11.0)
--- NOTE | 2017-10-11 08:04 | CP.PCM.CON ---
History of Present Illness - History of Present Illness History of Present Illness: Medicine Consult Note: HPI: 57 yo female w/ h/o HIV (not compliant w/ HAART), HTN, Asthma, Polysubstance abuse, Bipolar disorder, presents s/p suicide attempt by overdosing on Xanax, heroine, and crack. States she woke up this morning with the intention of killing herself. Has been feeling depressed. Sees Torey Rogers often and is non compliant with medications for the past month due to increasing stress/frustration from home environment. Denies auditory/voluntary hallucinations. Does not take any medication for HIV. PMX: HIV (last CD4 330, CD4% 27, 03/2017), HCV, Substance Abuse, Bipolar, Asthma Medication: Albuterol, Quetiapine, Sertraline Allergies: PCN Surgical Hx: none Fm Hx: Mother has Alzeihmers Social: Polysubstance abuse ([place], Heroine, Cocaine), non smoker, alcohol- occasional. States she has been clean for the past 9 months but relapsed Noted to have Excoriation lesions. Not open or oozing, dried crusted scar, red. Vitals: Stable, BP low 92/63 CBC, BMP normal UTox: + for Opiates, Cocaine, [place], haloperidol ED Course: Quetiapine, Sertraline, Trazadone Clonidine Medically Stable and optimized Past Patient History - Infectious Disease Hx of Infectious Diseases: None - Past Medical History & Family History Past Medical History?: Yes - Past Social History Smoking Status: Light Smoker < 10 Cigarettes Daily - CARDIAC Hx Atrial Fibrillation: No Hx Cardia Arrhythmia: No Hx Congestive Heart Failure: No Hx Hypercholesterolemia: No Hx Hypertension: Yes Hx Mitral Valve Prolapse: Yes Hx Pacemaker: No Hx Peripheral Edema: No - PULMONARY Hx Asthma: Yes Hx Bronchitis: Yes Hx Chronic Obstructive Pulmonary Disease (COPD): Yes Hx Emphysema: No Hx Pneumonia: No Hx Pulmonary Embolism: No Hx Sleep Apnea: No - NEUROLOGICAL Hx Seizures: Yes (withdrawal induced) Hx Transient Ischemic Attacks (TIA): No - HEENT Hx HEENT Problems: No - RENAL Hx Chronic Kidney Disease: No - ENDOCRINE/METABOLIC Hx Endocrine Disorders: No - HEMATOLOGICAL/ONCOLOGICAL Hx Anemia: Yes Hx Human Immunodeficiency Virus (HIV): Yes Hx Sickle Cell Disease: No - INTEGUMENTARY Hx Dermatological Problems: No - MUSCULOSKELETAL/RHEUMATOLOGICAL Hx Musculoskeletal Disorders: No - GASTROINTESTINAL Hx Gastrointestinal Disorders: No - GENITOURINARY/GYNECOLOGICAL Hx Sexually Transmitted Disorders: No - PSYCHIATRIC Hx Bipolar Disorder: Yes Hx Depression: Yes Hx Substance Use: Yes - SURGICAL HISTORY Hx Tonsillectomy: Yes - ANESTHESIA Hx Anesthesia: Yes Hx Anesthesia Reactions: No Meds Allergies/Adverse Reactions: Allergies Allergy/AdvReac Type Severity Reaction Status Date / Time Penicillins Allergy pt reports Verified 10/09/17 17:08 seizures - Medications Medications: Current Medications Acetaminophen (Tylenol 325mg Tab) 650 mg PO Q4 PRN PRN Reason: Pain, moderate (4-7) Al Hydrox/Mg Hydrox/Simethicone (Maalox Plus 30 Ml) 30 ml PO Q4 PRN PRN Reason: Dyspepsia Albuterol (Ventolin Hfa 90 Mcg/Actuation (8 G)) 2 puff IH Q4H PRN PRN Reason: Shortness of Breath Diphenhydramine HCl (Benadryl) 50 mg IM Q6 PRN PRN Reason: Extrapyramidal S/S Unable PO Diphenhydramine HCl (Benadryl) 50 mg PO HS PRN PRN Reason: Insomnia Haloperidol (Haldol) 5 mg PO Q4 PRN PRN Reason: Agitation Haloperidol Lactate (Haldol) 5 mg IM Q4 PRN PRN Reason: Agitation, Unable to Take PO Ibuprofen (Motrin Tab) 400 mg PO Q6 PRN PRN Reason: Pain, moderate (4-7) Stop: 10/13/17 19:50 Last Admin: 10/10/17 23:22 Dose: 400 mg Loperamide HCl (Imodium) 2 mg PO Q4 PRN PRN Reason: After Loose Bowel Movement Lorazepam (Ativan) 2 mg IM Q4 PRN PRN Reason: Anxiety/Agitation,Unable PO Lorazepam (Ativan) 2 mg PO Q4 PRN PRN Reason: Anxiety/Agitation Magnesium Hydroxide (Milk Of Magnesia) 30 ml PO HS PRN PRN Reason: Constipation Quetiapine Fumarate (Seroquel) 200 mg PO HS FAY Sertraline HCl (Zoloft) 50 mg PO DAILY [facility] Results - Vital Signs Recent Vital Signs: Last Vital Signs Temp 97.3 F L 10/11/17 05:48 Pulse 63 10/11/17 05:48 Resp 19 10/11/17 05:48 BP 92/63 L 10/11/17 05:48 Pulse Ox - Labs Labs: Laboratory Results - last 24 hr 10/11/17 05:50 Triglycerides 68 D Cholesterol 127 LDL Cholesterol Direct 52 HDL Cholesterol 36 Thyroxine (T4) 8.17 TSH 3rd Generation 3.19 Assessment & Plan - Assessment and Plan (Free Text) Assessment: 57 year old female with PMH of HTN, Intermittent asthma, HIV and Hep C seen at bedside after being admitted for drug overdose. Plan: Polysubstance Abuse - Tox screen: Opiates (+), Benzodiazepines (+), Cocaine (+) - Meds per Psych recs - Wound care consult placed -No signs of opiod withdrawal symp Suicidal Ideation - Psychology consult appreciated - Dr. Clifton - Voluntary psychiatric admission indicated - Medications started per Psych recs HTN - Low -Clonidine discontinued - EKG: wnl Bilateral Heel lesions, posterior -Likely secondary to ill fitting shoes -No active bleed, no signs of infection -Bacitracin ointment -PT evaluation and treat Intermittent Asthma - Asymptomatic - CXR: No active disease. No significant interval change compared to the prior examinations - Albuterol 2 puff IH q4h prn shortness of breath -Neubulizer ordered HIV - Last CD4 330 on 03/22/17 -no compliant with HAART medication at home, given risk of resistance, will not start HAART therapy while in patient. -Parameters not met for PCP prophylaxis. Hepatitis C - Chronic - Asymptomatic - Monitored DVT prophylaxis - Lovenox 40 mg SC daily
--- NOTE | 2017-10-11 08:57 | PCM.PSYCH ---
Initial Psychiatric Evaluation - Initial Psychiatric Evaluation Type of Admission: Voluntary Legal Status: Capacity Chief Complaint (in patient's own words): "I tried to kill myself." Patient's Reaction to Hospitalization: HPI: 57 yo female w/ h/o HIV (not compliant w/ HAART), HTN, Asthma, Polysubstance abuse, Bipolar disorder, presents s/p suicide attempt by overdosing on Xanax 6 mg, 3 bags of heroin and crack use. Patient reports that she needs help because she does not want to live anymore. She denied current active suicidal ideation and is able to contract for safety while in the hospital. She reports non-compliance with her medications (Zoloft, Trazodone, Seroquel) for at least 1 month. She reports depressed mood, hopelessness, sleep /appetite, disturbances. Denies AH/VH/paranoia/delusions. No HI. PPHx: Multiple past psychiatric admissions for substance abuse and bipolar disorder. She is non-compliant with Zoloft, Trazodone and Seroquel. PMH: HIV, HCV, polysubstance abuse, Asthma, HTN Allergies: PCN Surgical hx: denies Social: +benzodiazepine/ heroin/ cocaine abuse; lives w/ her parents, unemployed Current Medications: Active Medications Generic Name Dose Route Start Last Admin Trade Name Freq PRN Reason Stop Dose Admin Acetaminophen 650 mg 10/10/17 19:21 Tylenol 325mg Tab PO Q4 PRN Pain, moderate (4-7) Al Hydrox/Mg Hydrox/Simethicone 30 ml 10/10/17 19:21 Maalox Plus 30 Ml PO Q4 PRN Dyspepsia Albuterol 2 puff 10/10/17 20:59 Ventolin Hfa 90 Mcg/Actuation (8 G) IH Q4H PRN Shortness of Breath Diphenhydramine HCl 50 mg 10/10/17 19:21 Benadryl IM Q6 PRN Extrapyramidal S/S Unable PO Diphenhydramine HCl 50 mg 10/10/17 19:21 Benadryl PO HS PRN Insomnia Haloperidol 5 mg 10/10/17 19:21 Haldol PO Q4 PRN Agitation Haloperidol Lactate 5 mg 10/10/17 19:21 Haldol IM Q4 PRN Agitation, Unable to Take PO Ibuprofen 400 mg 10/10/17 23:30 10/10/17 23:22 Motrin Tab PO 10/13/17 19:50 400 mg Q6 PRN Administration Pain, moderate (4-7) Loperamide HCl 2 mg 10/10/17 19:50 Imodium PO Q4 PRN After Loose Bowel Movement Lorazepam 2 mg 10/10/17 19:21 Ativan IM Q4 PRN Anxiety/Agitation,Unable PO Lorazepam 2 mg 10/10/17 19:21 Ativan PO Q4 PRN Anxiety/Agitation Magnesium Hydroxide 30 ml 10/10/17 19:21 Milk Of Magnesia PO HS PRN Constipation Quetiapine Fumarate 200 mg 10/11/17 22:00 Seroquel PO HS FAY Sertraline HCl 50 mg 10/11/17 09:00 Zoloft PO DAILY FAY Trazodone HCl 100 mg 10/11/17 22:00 Desyrel PO HS FAY Past Psychiatric History - Past Psychiatric History Previous Treatment History: Inpatient Pertinent Medical Hx (Current Medical&Sleep Prob, Allergies): Allergies Allergy/AdvReac Type Severity Reaction Status Date / Time Penicillins Allergy pt reports Verified 10/09/17 17:08 seizures Albuterol HFA [Ventolin HFA 90 mcg/actuation (8 g)] 2 puff IH Q4H PRN 02/21/17 Aluminum Hydroxide/Magnesium [Maalox Plus 30 ml] 30 ml PO QID PRN udc 10/10/17 Enoxaparin [Lovenox] 40 mg SC DAILY syr 10/10/17 Ibuprofen [Motrin Tab] 800 mg PO Q6 PRN tab 10/10/17 Loperamide [Imodium] 2 mg PO Q4 PRN cap 10/10/17 Multimineral/Multivitamin [Therapeutic-M Tab] 1 tab PO DAILY tab 10/10/17 Ondansetron [Zofran Tab] 4 mg PO Q4 PRN tab 10/10/17 QUEtiapine [Seroquel] 100 mg PO HS tab 10/10/17 Sertraline [Zoloft] 50 mg PO DAILY tab 10/10/17 cloNIDine [Catapres] 0.1 mg PO Q8 tab 10/10/17 Review of Systems - Psychiatric Psychiatric: Abnormal Sleep Pattern, Anhedonia, Anxiety, Behavioral Changes, Change in Appetite, Depression, Difficulty Concentrating, Hopelessness, Irritability, Mood Swings, Suicidal Ideation Mental Status Examination - Personal Presentation Personal Presentation: Looks older than stated age - Affect Affect: Constricted, Depressed - Motor Activity Motor Activity: Calm - Reliability in Providing Information Reliability in Providing Information: Fair - Speech Speech: Organized, Coherent - Mood Mood: Depressed - Formal Thought Process Formal Thought Process: No Impairment - Hallucinations/Delusions Additional comments: No AH/VH/paranoia/delusions - Obsessions/Compulsions Obsessions: No Compulsions: No - Cognitive Functions Orientation: Person, Place, Situation, Time Sensorium: Alert Attention/Concentration: Attentive Estimate of Intelligence: Average Judgement: Intact, as evidence by: Insight regarding need for hospitalization Memory: Recent intact, as evidence by: Ability to recall events of the day, Remote intact, as evidenced by: Abilit to recall sig. life events, Remote intact , as evidenced by: Ability to recall historical events - Risk Risk: Diminished functioning - Strength & Assets Inventory Strength & Assets Inventory: Cooperative DSM 5 DX - DSM 5 DSM 5 Diagnosis: Bipolar I Disorder; Cocaine/ Benzodiazepine / Opioid Use Disorders - Recommended/Plan of Treatment Treatment Recommendations and Plan of Treatment: Bipolar I Disorder; Cocaine/ Benzodiazepine / Opioid Use Disorders -Admit to psychiatry -Medicine consult -Restart Trazodone, Zoloft and Seroquel; will titrate as clinically indicated -Psychoeducation re: substance abuse -Individual and group therapy -Disposition planning -Treatment of opioid withdrawal symptoms Projected ELOS: 6-10 days Discharge Plan and Discharge Criteria: Discharge when patient is psychiatrically stable - Smoking Cessation Smoking Cessation Initiated: No Reason for not providing: Not indicated
[2017-10-11] MEDS: Bacitracin OINT 15GM TOP SCH ×2 (09:15→17:06)
[2017-10-11] MEDS: Albuterol 0.083% Inhal Sol (2.5 mg/3 mL) UD INH PRN (09:40)
--- NOTE | 2017-10-12 10:13 | PCM.PYCHPN ---
Psychiatric Progress Note - Psychiatric Progress Note Patient seen today, length of contact: Patient evaluated, case discussed with team, chart reviewed Patient Chief Complaint: "I tried to kill myself." Problems Identified/Issues Discussed: Patient reports that she continues to feel depressed, but denies acute ideation to harm herself or others. She reports insomnia, stating that she can not sleep at night and paces in her room. We discussed continued titration of Seroquel and Trazodone. +Poor appetite Medication Change: Yes (Increase Seroquel and Trazodone) Medical Record Reviewed: Yes Consults ordered or reviewed: Medicine consult Mental Status Examination - Cognitive Function Orientation: Person, Place, Situation, Time Memory: Intact Attention: WNL Concentration: WNL Association: WNL Fund of Knowledge: [facility] Decription of patient's judgement and insights: Fair I/J - Mood Mood: Depressed - Affect Affect: Constricted, Depressed - Speech Speech: Appropriate - Formal Thought Process Formal Thought Process: No Impairment Psychotic Thoughts and Behaviors: No AH/VH/paranoia/delusions - Suicidal Ideation Suicidal Ideation: No - Homicidal Ideation Homicidal Ideation: No Goal/Treatment Plan - Goal/Treatment Plan Need for Continued Stay: Remain at risks for inpatient hospitalization, Severe depression anxiety, Discharge may exacerbated symptoms Progress Toward Problem(s) and Goals/Treatment Plan: Bipolar I Disorder; Cocaine/ Benzodiazepine / Opioid Use Disorders -Medicine consult -Stop Zoloft, will restart if clinically indicated -Increase Trazodone and Seroquel -Psychoeducation re: substance abuse -Individual and group therapy -Disposition planning -Treatment of opioid withdrawal symptoms Estimated Date of D/C: 10/17/17
[2017-10-12] MEDS: Bacitracin OINT 15GM TOP SCH ×2 (10:19→17:19)
[2017-10-12 20:37] LABS: SQUAMOUS EPITHIAL 1 /hpf (0-5); URINE BILIRUBIN NEGATIVE (NEGATIVE); URINE BLOOD NEGATIVE (NEGATIVE); URINE CLARITY SLIGHTY-CLOUDY (Clear); URINE COLOR YELLOW (YELLOW); URINE GLUCOSE (UA) NEG (Normal); URINE LEUKOCYTE ESTERASE LARGE Leu/uL (Negative); URINE PROTEIN NEGATIVE (NEGATIVE)
[2017-10-12] MEDS ORDERED: QUEtiapine 300 MG TABLET PO SCH (22:00)
--- NOTE | 2017-10-13 06:58 | CP.PCM.PN ---
Subjective - Date & Time of Evaluation Date of Evaluation: 10/13/17 Time of Evaluation: 07:40 - Subjective Subjective: Medicine consult progress note: Pt seen and evaluated today; states she feels depressed but physically nothing is bothering her. Denies chest pains, trouble breathing, trouble with using the bathroom, walking. Objective - Vital Signs/Intake and Output Vital Signs (last 24 hours): Temp Pulse Resp BP Pulse Ox 98.2 F 67 19 120/72 10/13/17 06:00 10/13/17 06:00 10/13/17 06:00 10/13/17 06:00 - Medications Medications: Current Medications Acetaminophen (Tylenol 325mg Tab) 650 mg PO Q4 PRN PRN Reason: Pain, moderate (4-7) Al Hydrox/Mg Hydrox/Simethicone (Maalox Plus 30 Ml) 30 ml PO Q4 PRN PRN Reason: Dyspepsia Albuterol (Ventolin Hfa 90 Mcg/Actuation (8 G)) 2 puff IH Q4H PRN PRN Reason: Shortness of Breath Last Admin: 10/11/17 09:12 Dose: 2 puff Albuterol Sulfate (Albuterol 0.083% Inhal Deborah (2.5 Mg/3 Ml) Ud) 2.5 mg INH RQ4 PRN PRN Reason: Shortness of Breath Last Admin: 10/11/17 09:40 Dose: 2.5 mg Bacitracin (Bacitracin Oint) 1 applic TOP BID FAY Last Admin: 10/12/17 17:19 Dose: 1 applic Diphenhydramine HCl (Benadryl) 50 mg IM Q6 PRN PRN Reason: Extrapyramidal S/S Unable PO Diphenhydramine HCl (Benadryl) 50 mg PO HS PRN PRN Reason: Insomnia Haloperidol (Haldol) 5 mg PO Q4 PRN PRN Reason: Agitation Haloperidol Lactate (Haldol) 5 mg IM Q4 PRN PRN Reason: Agitation, Unable to Take PO Ibuprofen (Motrin Tab) 400 mg PO Q6 PRN PRN Reason: Pain, moderate (4-7) Stop: 10/13/17 19:50 Last Admin: 10/11/17 14:18 Dose: 400 mg Loperamide HCl (Imodium) 2 mg PO Q4 PRN PRN Reason: After Loose Bowel Movement Lorazepam (Ativan) 2 mg IM Q4 PRN PRN Reason: Anxiety/Agitation,Unable PO Lorazepam (Ativan) 2 mg PO Q4 PRN PRN Reason: Anxiety/Agitation Magnesium Hydroxide (Milk Of Magnesia) 30 ml PO HS PRN PRN Reason: Constipation Quetiapine Fumarate (Seroquel) 300 mg PO [facility] Last Admin: 10/12/17 21:10 Dose: 300 mg Trazodone HCl (Desyrel) 200 mg PO [facility] Last Admin: 10/12/17 21:09 Dose: 200 mg - Constitutional Appears: No Acute Distress, Younger Than Stated Age - Head Exam Head Exam: ATRAUMATIC - Eye Exam Eye Exam: Normal appearance - ENT Exam Additional comments: lips dry - Neck Exam Neck Exam: Normal Inspection - Respiratory Exam Respiratory Exam: Clear to Ausculation Bilateral, NORMAL BREATHING PATTERN. absent: Wheezes - Cardiovascular Exam Cardiovascular Exam: REGULAR RHYTHM, +S1, +S2 - GI/Abdominal Exam GI & Abdominal Exam: Soft, Normal Bowel Sounds. absent: Tenderness - Extremities Exam Extremities Exam: Normal Inspection. absent: Calf Tenderness, Pedal Edema - Back Exam Back Exam: NORMAL INSPECTION - Neurological Exam Neurological Exam: Alert, Awake - Psychiatric Exam Psychiatric exam: Depressed - Skin Skin Exam: Dry Assessment and Plan - Assessment and Plan (Free Text) Assessment: 57 yo F with PMH heroin abuse, HIV, Hep C, intermittent asthma admitted to inpatient psychiatry unit for depression/suicidal ideation after overdose. Plan: # Polysubstance Abuse - Tox screen: positive for opiates, benzodiazepines, cocaine - Medications as per psychiatry recs - Monitor for signs of withdrawal # Intermittent Asthma - Asymptomatic - CXR: No active disease. No significant interval change compared to the prior examinations - Ventolin inhaler and albuterol nebulizer treatments Q4 PRN # HIV - Last CD4 330 on 03/22/17 - Repeat CD4 count - Pt has been noncompliant with HAART medications; given risk of resistance, will not start HAART therapy while inpatient. # HTN - BP controlled - Monitor for changes # Hepatitis C - Chronic - Asymptomatic # Bipolar Disorder - Primary management as per psychiatry # Suicidal Ideation - Primary management as per psychiatry
[2017-10-13] MEDS: Bacitracin OINT 15GM TOP SCH ×2 (08:40→17:16)
--- NOTE | 2017-10-13 08:49 | PCM.PYCHPN ---
Psychiatric Progress Note - Psychiatric Progress Note Patient seen today, length of contact: Patient evaluated, case discussed with team, chart reviewed Patient Chief Complaint: "I'm depressed." Problems Identified/Issues Discussed: Patient reports that she continues to feel depressed, but denies acute ideation to harm herself or others. She continues to report difficulty sleeping at night and poor appetite. We discussed continued titration of Seroquel. NO AH/ VH/SI/HI/paranoia/delusions Medication Change: Yes (Increase Seroquel) Medical Record Reviewed: Yes Consults ordered or reviewed: Medicine consult Mental Status Examination - Cognitive Function Orientation: Person, Place, Situation, Time Memory: Intact Attention: WNL Concentration: WNL Association: WNL Fund of Knowledge: [facility] Decription of patient's judgement and insights: Fair I/J - Mood Mood: Depressed - Affect Affect: Constricted, Depressed - Speech Speech: Appropriate - Formal Thought Process Formal Thought Process: No Impairment Psychotic Thoughts and Behaviors: No AH/VH/paranoia/delusions - Suicidal Ideation Suicidal Ideation: No - Homicidal Ideation Homicidal Ideation: No Goal/Treatment Plan - Goal/Treatment Plan Need for Continued Stay: Remain at risks for inpatient hospitalization, Severe depression anxiety, Discharge may exacerbated symptoms Progress Toward Problem(s) and Goals/Treatment Plan: Bipolar I Disorder; Cocaine/ Benzodiazepine / Opioid Use Disorders -Medicine consult -Increase Seroquel to 400 mg PO HS -Continue Trazodone 200 mg PO HS -Psychoeducation re: substance abuse -Individual and group therapy -Disposition planning -Treatment of opioid withdrawal symptoms Estimated Date of D/C: 10/17/17
[2017-10-13] MEDS: Albuterol 0.083% Inhal Sol (2.5 mg/3 mL) UD INH PRN (15:44)
[2017-10-14] MEDS: Bacitracin OINT 15GM TOP SCH ×2 (08:15→17:05)
--- NOTE | 2017-10-14 16:07 | PCM.PYCHPN ---
Psychiatric Progress Note - Psychiatric Progress Note Patient seen today, length of contact: Patient evaluated, case discussed with team, chart reviewed Patient Chief Complaint: was at home feeling sad, planned to take life feeling overwhelmed here reports somewhat less depressed, sleeping improving somewhat per staff slept approx. 5 hrs , staff report pt has been adherent with treatment, seen by family practice physician. Medical Problems: per chart Diagnostic Results: per psychiatry per medicine per nursing per social work DSM 5 Symptoms Update: alteration in mood Medication Change: Yes (Increase Seroquel) Medical Record Reviewed: Yes Consults ordered or reviewed: pt seen by family practice physician Mental Status Examination - Cognitive Function Orientation: Person, Place, Situation, Time Memory: Intact Attention: WNL Concentration: WNL Association: WNL Fund of Knowledge: WNL - Mood Mood: Depressed - Affect Affect: Constricted, Depressed - Speech Speech: Appropriate - Formal Thought Process Formal Thought Process: Circumstantial - Suicidal Ideation Suicidal Ideation: No - Homicidal Ideation Homicidal Ideation: No Goal/Treatment Plan - Goal/Treatment Plan Need for Continued Stay: Remain at risks for inpatient hospitalization, Severe depression anxiety, Discharge may exacerbated symptoms Progress Toward Problem(s) and Goals/Treatment Plan: inpt milieu treatment vital signs and clinical observation per protocol and clinical status adjust meds per status pt seen by family practice physician today 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
[2017-10-14 16:13] LABS: % CD4 (T HELPER CELL) 18 Percent (30-61); % CD8 (SUPPRESSOR T CELL) 70 Percent (12-42); ABSOLUTE CD4 CELLS 269 Cells/mcL (490-1740); ABSOLUTE CD8 CELLS 1056 Cells/mcL (180-1170); ABSOLUTE LYMPHOCYTES 1510 Cells/mcL (850-3900); HELPER/SUPPRESSOR RATIO 0.25 Ratio (0.86-5.00)
[2017-10-15] MEDS: Bacitracin OINT 15GM TOP SCH ×2 (08:33→16:44)
[2017-10-15] MEDS: Albuterol 0.083% Inhal Sol (2.5 mg/3 mL) UD INH PRN ×2 (08:50→16:28)
[2017-10-16] MEDS: Albuterol 0.083% Inhal Sol (2.5 mg/3 mL) UD INH PRN ×2 (08:37→17:14)
[2017-10-16] MEDS: Bacitracin OINT 15GM TOP SCH ×2 (08:53→17:14)
--- NOTE | 2017-10-16 09:59 | PCM.PYCHPN ---
Psychiatric Progress Note - Psychiatric Progress Note Patient seen today, length of contact: Patient evaluated, case discussed with team, chart reviewed Patient Chief Complaint: "I'm depressed." Problems Identified/Issues Discussed: Patient reports that she continues to feel depressed, w/ intermittent vague suicidal ideation w/o plan or intent. She reports feeling distressed that she continues to have difficulty sleeping. We discussed continued titration of Trazodone. NO AH/VH/SI/HI/paranoia/delusions Medication Change: Yes (Increase Trazodone) Medical Record Reviewed: Yes Consults ordered or reviewed: Medicine consult Mental Status Examination - Cognitive Function Orientation: Person, Place, Situation, Time Memory: Intact Attention: WNL Concentration: WNL Association: WNL Fund of Knowledge: [facility] Decription of patient's judgement and insights: Fair I/J - Mood Mood: Depressed - Affect Affect: Constricted, Depressed - Speech Speech: Appropriate - Formal Thought Process Formal Thought Process: No Impairment Psychotic Thoughts and Behaviors: No AH/VH/paranoia/delusions - Suicidal Ideation Suicidal Ideation: No - Homicidal Ideation Homicidal Ideation: No Goal/Treatment Plan - Goal/Treatment Plan Need for Continued Stay: Remain at risks for inpatient hospitalization, Severe depression anxiety, Discharge may exacerbated symptoms Progress Toward Problem(s) and Goals/Treatment Plan: Bipolar I Disorder; Cocaine/ Benzodiazepine / Opioid Use Disorders; Patient is appropriate for initiation of referral for inpatient substance abuse rehabilitation at this time. -Medicine consult appreciate -Continue Seroquel 400 mg PO HS -Increase Trazodone to 300 mg PO HS -Psychoeducation re: substance abuse -Individual and group therapy -Disposition planning Estimated Date of D/C: 10/19/17
[2017-10-17 06:49] LABS: HEMOGLOBIN 12.1 g/dL (12.0-16.0); MEAN CELL VOLUME 83.8 fl (81.0-99.0); MEAN CORPUSCULAR HEMOGLOBIN 27.2 pg (27.0-31.0); MEAN CORPUSCULAR HGB CONC 32.5 g/dL (33.0-37.0); RBC 4.46 Mil/uL (3.80-5.20); RED CELL DISTRIBUTION WIDTH 16.5 % (11.5-14.5); WHITE BLOOD COUNT 3.6 K/uL (4.8-10.8)
[2017-10-17] MEDS: Bacitracin OINT 15GM TOP SCH ×2 (08:14→16:23)
--- NOTE | 2017-10-17 09:02 | CP.PCM.PN ---
Subjective - Date & Time of Evaluation Date of Evaluation: 10/17/17 Time of Evaluation: 08:50 - Subjective Subjective: Tanya and seen and examined today. She reports improvement in general health. Denies: depression, SI/HI/AH/VH. Reports benefitting from group therapy. Pt reports being active in the day and ambulating. Denies: CP/FRASER/SOB/N/V, dysuria, hematuria. Objective - Vital Signs/Intake and Output Vital Signs (last 24 hours): Temp Pulse Resp BP Pulse Ox 97.9 F 77 18 112/70 10/17/17 05:56 10/17/17 05:56 10/17/17 05:56 10/17/17 05:56 - Medications Medications: Current Medications Acetaminophen (Tylenol 325mg Tab) 650 mg PO Q4 PRN PRN Reason: Pain, moderate (4-7) Al Hydrox/Mg Hydrox/Simethicone (Maalox Plus 30 Ml) 30 ml PO Q4 PRN PRN Reason: Dyspepsia Albuterol (Ventolin Hfa 90 Mcg/Actuation (8 G)) 2 puff IH Q4H PRN PRN Reason: Shortness of Breath Last Admin: 10/11/17 09:12 Dose: 2 puff Albuterol Sulfate (Albuterol 0.083% Inhal Deborah (2.5 Mg/3 Ml) Ud) 2.5 mg INH RQ4 PRN PRN Reason: Shortness of Breath Last Admin: 10/16/17 17:14 Dose: 2.5 mg Bacitracin (Bacitracin Oint) 1 applic TOP BID [facility] Last Admin: 10/17/17 08:14 Dose: 1 applic Diphenhydramine HCl (Benadryl) 50 mg IM Q6 PRN PRN Reason: Extrapyramidal S/S Unable PO Diphenhydramine HCl (Benadryl) 50 mg PO HS PRN PRN Reason: Insomnia Gabapentin (Neurontin) 300 mg PO TID [facility] Last Admin: 10/17/17 08:13 Dose: 300 mg Haloperidol (Haldol) 5 mg PO Q4 PRN PRN Reason: Agitation Haloperidol Lactate (Haldol) 5 mg IM Q4 PRN PRN Reason: Agitation, Unable to Take PO Loperamide HCl (Imodium) 2 mg PO Q4 PRN PRN Reason: After Loose Bowel Movement Lorazepam (Ativan) 2 mg IM Q4 PRN PRN Reason: Anxiety/Agitation,Unable PO Lorazepam (Ativan) 2 mg PO Q4 PRN PRN Reason: Anxiety/Agitation Magnesium Hydroxide (Milk Of Magnesia) 30 ml PO HS PRN PRN Reason: Constipation Quetiapine Fumarate (Seroquel) 400 mg PO HS [facility] Last Admin: 10/16/17 21:04 Dose: 400 mg Trazodone HCl (Desyrel) 300 mg PO HS [facility] Last Admin: 10/16/17 21:03 Dose: 300 mg Zolpidem Tartrate (Ambien) 5 mg PO HS PRN PRN Reason: Insomnia Last Admin: 10/16/17 22:17 Dose: 5 mg - Labs Labs: 10/17/17 06:00 - Constitutional Appears: Well, No Acute Distress - Eye Exam Eye Exam: EOMI - Neck Exam Neck Exam: Full ROM - Respiratory Exam Respiratory Exam: Clear to Ausculation Bilateral, NORMAL BREATHING PATTERN. absent: Wheezes - Cardiovascular Exam Cardiovascular Exam: REGULAR RHYTHM, +S1, +S2. absent: Murmur - GI/Abdominal Exam GI & Abdominal Exam: Soft, Normal Bowel Sounds. absent: Tenderness - Extremities Exam Extremities Exam: Full ROM. absent: Calf Tenderness, Pedal Edema - Back Exam Back Exam: absent: CVA tenderness (L), CVA tenderness (R) - Neurological Exam Neurological Exam: Alert, Awake, CN II-XII Intact, Normal Gait, Oriented x3 - Psychiatric Exam Psychiatric exam: Normal Affect, Normal Mood Assessment and Plan - Assessment and Plan (Free Text) Plan: 57 yo F with PMH heroin abuse, HIV, Hep C, intermittent asthma admitted to inpatient psychiatry unit for depression/suicidal ideation after overdose. 1. Polysubstance Abuse - Tox screen: positive for opiates, benzodiazepines, cocaine - Medications as per psychiatry recs - Monitor for signs of withdrawal 2. Intermittent Asthma - Asymptomatic - CXR: No active disease. No significant interval change compared to the prior examinations - Ventolin inhaler and albuterol nebulizer treatments Q4 PRN 3. HIV - Last CD4 330 on 03/22/17 - Repeat CD4 count: 10/13/2017: 269 - Pt has been noncompliant with HAART medications; given risk of resistance, will not start HAART therapy while inpatient. 4. HTN - BP controlled - Monitor for changes 5. Hepatitis C - Chronic - Asymptomatic 6. Bipolar Disorder - Primary management as per psychiatry 7. Suicidal Ideation - Primary management as per psychiatry
--- NOTE | 2017-10-17 09:25 | PCM.PYCHPN ---
Psychiatric Progress Note - Psychiatric Progress Note Patient seen today, length of contact: Patient evaluated, case discussed with team, chart reviewed Patient Chief Complaint: "I'm depressed." Problems Identified/Issues Discussed: Patient reports that she continues to feel depressed. She reports that her sleep is improving. She denies acute AH/VH/SI/HI/paranoia/delusions. Medication Change: No Medical Record Reviewed: Yes Consults ordered or reviewed: Medicine consult Mental Status Examination - Cognitive Function Orientation: Person, Place, Situation, Time Memory: Intact Attention: WNL Concentration: WNL Association: WNL Fund of Knowledge: [facility] Decription of patient's judgement and insights: Fair I/J - Mood Mood: Depressed - Affect Affect: Constricted, Depressed - Speech Speech: Appropriate - Formal Thought Process Formal Thought Process: No Impairment Psychotic Thoughts and Behaviors: No AH/VH/paranoia/delusions - Suicidal Ideation Suicidal Ideation: No - Homicidal Ideation Homicidal Ideation: No Goal/Treatment Plan - Goal/Treatment Plan Need for Continued Stay: Remain at risks for inpatient hospitalization, Severe depression anxiety, Discharge may exacerbated symptoms Progress Toward Problem(s) and Goals/Treatment Plan: Bipolar I Disorder; Cocaine/ Benzodiazepine / Opioid Use Disorders; Patient is appropriate for initiation of referral for inpatient substance abuse rehabilitation at this time. -Medicine consult appreciate -Continue Seroquel 400 mg PO HS -Continue Trazodone 300 mg PO HS -Psychoeducation re: substance abuse -Individual and group therapy -Disposition planning Estimated Date of D/C: 10/20/17
[2017-10-17] MEDS: Albuterol 0.083% Inhal Sol (2.5 mg/3 mL) UD INH PRN ×2 (11:43→19:42)
[2017-10-18] MEDS: Bacitracin OINT 15GM TOP SCH ×2 (08:22→17:13)
--- NOTE | 2017-10-18 09:15 | PCM.PYCHPN ---
Psychiatric Progress Note - Psychiatric Progress Note Patient seen today, length of contact: Patient evaluated, case discussed with team, chart reviewed Patient Chief Complaint: "I'm depressed." Problems Identified/Issues Discussed: Patient reports that she continues to feel depressed, but states that her mood is starting to improve. She reports that her sleep is improving. She denies acute AH/VH/SI/HI/paranoia/delusions. Medication Change: No Medical Record Reviewed: Yes Consults ordered or reviewed: Medicine consult Mental Status Examination - Cognitive Function Orientation: Person, Place, Situation, Time Memory: Intact Attention: WNL Concentration: WNL Association: WNL Fund of Knowledge: [facility] Decription of patient's judgement and insights: Fair I/J - Mood Mood: Depressed - Affect Affect: Constricted, Depressed - Speech Speech: Appropriate - Formal Thought Process Formal Thought Process: No Impairment Psychotic Thoughts and Behaviors: No AH/VH/paranoia/delusions - Suicidal Ideation Suicidal Ideation: No - Homicidal Ideation Homicidal Ideation: No Goal/Treatment Plan - Goal/Treatment Plan Need for Continued Stay: Remain at risks for inpatient hospitalization, Severe depression anxiety, Discharge may exacerbated symptoms Progress Toward Problem(s) and Goals/Treatment Plan: Bipolar I Disorder; Cocaine/ Benzodiazepine / Opioid Use Disorders; Patient is appropriate for initiation of referral for inpatient substance abuse rehabilitation at this time. -Medicine consult appreciate -Continue Seroquel 400 mg PO HS -Continue Trazodone 300 mg PO HS -Psychoeducation re: substance abuse -Individual and group therapy -Disposition planning Estimated Date of D/C: 10/20/17
[2017-10-18] MEDS: Albuterol 0.083% Inhal Sol (2.5 mg/3 mL) UD INH PRN (11:57)
--- NOTE | 2017-10-18 12:24 | PCM.BM ---
Treatment Plan Problems - Problems identified on initial assessmt Hopelessness/Helplessness Date Initiated: 10/10/17 Time Initiated: 19:30 Assessment reference: NA Status: Active Altered Sleep Patterns Date Initiated: 10/10/17 Time Initiated: 19:30 Assessment reference: NA Status: Active Treatment assets and liabiliti Patient Assests: adapts well, cooperative, self-reliant, ADL independent, good support system, negotiates basic needs, cognitively intact, strong gregory Patient Liabilities: relationship conflicts (mother has alzheimers), substance abuse - Milieu Protocol Maintain good personal hygiene: daily Encourage regular showers, daily Remind patient to perform daily oral care, daily Assist patient to perform ADL's Maintain personal safety: every shift Educate patient to report safety concerns to staff, every shift Monitor environment for contraband/sharps Medication safety: Monitor for expected outcome, potential side effects: every shift, Assess barriers to learning: every shift, Assess readiness for medication education: every shift Milieu Narrative: Bipolar I Disorder; Cocaine/ Benzodiazepine / Opioid Use Disorders; Patient is appropriate for initiation of referral for inpatient substance abuse rehabilitation at this time. -Medicine consult appreciate -Continue Seroquel 400 mg PO HS -Continue Trazodone 300 mg PO HS -Psychoeducation re: substance abuse -Individual and group therapy -Disposition planning Family Contact Family involvement: Family/SO is involved Family contact: Patient agrees to contact, Patient declines to allow family contact at present Family contact name: Carlo - father Family contacted how many times per week?: 2 Family contact comment: [phone] - Outside Agency [facility] involvment: Information-sharing Agency contact name: Joanne - case loader operator Agency contact number: [phone] [facility] involvment: Information-sharing Agency contact name: Carlo Issa APN Agency contact number: [phone] - Goals for Treatment Patient goals for treatment: "I need to get away from my mother" Discharge/Continuing Care - Education Needs Education Needs: Family Medication, Family Diagnosis/Disease Process, Family Coping Skills, Family Community resources, Family Health Practices/Safety, Family Personal Hygiene/Grooming, Family Aftercare Safety Plan, Patient Medication, Patient Diagnosis/Disease Process, Patient Coping Skills, Patient Community resources, Patient Health Practices/Safety, Patient Personal Hygiene/ Grooming, Patient Aftercare Safety Plan - Discharge Discharge Criteria: Tolerates medication w/o severe side effects, Free of Suicidal thoughts, Normal sleep pattern, Ability to care for self, Reduction of target symptoms Discharge to:: Home, With Family - Additional Comments 10/11/17 15:24 Pt seen and discussed in team meeting. Reason for admission reviewed. Pt reported 'I wanted to ." Pt reported she attempted to overdose on heroin, crack, Xanax and Klonopin. Pt reported her suicide attempt was planned. Pt identified her mother's cognitive impairment as the main trigger and stated "I can't deal with her anymore." Pt's medications reviewed and discussed. Pt's social and medical issues reviewed. Tx plan reviewed and pt is agreeable. Pt provided technical report writer with verbal consent to contact her fatherCarlo for additional collateral information. SW to continue to follow case. - Treatment Team Participation Patient/Family/SO Statement: Bipolar I Disorder; Cocaine/ Benzodiazepine / Opioid Use Disorders; Patient is appropriate for initiation of referral for inpatient substance abuse rehabilitation at this time. -Medicine consult appreciate -Continue Seroquel 400 mg PO HS -Continue Trazodone 300 mg PO HS -Psychoeducation re: substance abuse -Individual and group therapy -Disposition planning Discussed with Family/SO: No Was Patient/Family/SO present at Treatment Team Meeting: Yes Treatment Plan Review Family/SO/Caregiver participation: No Additional Comments: Pt seen and discussed in team meeting. Pt's progress and bx on the unit reviewed and discussed. Pt reported feeing "alright." Pt's medications reviewed and discussed. Discharge planning and after care reviewed and discussed with pt. Pt is agreeable to discharge plan. Psycho-education provided regarding importance of HIV medication and treatment compliance. Pt verbalized understanding. - Problem Hopelessness/Helplessness Date Initiated: 10/10/17 Time Initiated: 19:30 Progress toward outcomes: resolved Date resolved: 10/18/17 Altered Sleep Patterns Date Initiated: 10/10/17 Time Initiated: 19:30 Progress toward outcomes: improved - Discharge / Continuing Care Discharge to:: Home, With Family Behavioral Health Services: Outpatient therapy, Adult day care, Other Health Needs: Follow up care/test, Doctor appointments, Nutritional, Medications /Rx, Educational, Recreational/Social, Alcohol/Drug treatment
[2017-10-19 05:50] VITALS: RESP 18
--- NOTE | 2017-10-19 08:45 | PCM.PYCHPN ---
Psychiatric Progress Note - Psychiatric Progress Note Patient seen today, length of contact: Patient evaluated, case discussed with team, chart reviewed Patient Chief Complaint: "I'm getting better." Problems Identified/Issues Discussed: Patient reports that her mood is improving. She has improved sleep and appetite. NO AH/VH/paranoia/delusions. Psychoeducation provided on the importance of compliance with treatment and medications. We discussed likely discharge tomorrow if she continues to improve clinically. Medication Change: No Medical Record Reviewed: Yes Consults ordered or reviewed: Medicine consult Mental Status Examination - Cognitive Function Orientation: Person, Place, Situation, Time Memory: Intact Attention: WNL Concentration: WNL Association: WNL Fund of Knowledge: [facility] Decription of patient's judgement and insights: Fair I/J - Mood Mood: Neutral - Affect Affect: Constricted - Speech Speech: Appropriate - Formal Thought Process Formal Thought Process: No Impairment Psychotic Thoughts and Behaviors: No AH/VH/paranoia/delusions - Suicidal Ideation Suicidal Ideation: No - Homicidal Ideation Homicidal Ideation: No Goal/Treatment Plan - Goal/Treatment Plan Need for Continued Stay: Remain at risks for inpatient hospitalization, Severe depression anxiety, Discharge may exacerbated symptoms Progress Toward Problem(s) and Goals/Treatment Plan: Bipolar I Disorder; Cocaine/ Benzodiazepine / Opioid Use Disorders -Medicine consult appreciate -Continue Seroquel 400 mg PO HS -Continue Trazodone 300 mg PO HS -Psychoeducation re: substance abuse -Individual and group therapy -Disposition planning- likely discharge tomorrow if patient continues to improve clinically Estimated Date of D/C: 10/20/17
[2017-10-19] MEDS: Bacitracin OINT 15GM TOP SCH ×2 (08:48→16:32)
[2017-10-20 05:47] VITALS: BP 96/62; PULSE 86; TEMP 97.5
--- NOTE | 2017-10-20 08:17 | PCM.PYCHDC ---
Mental Status Examination - Mental Status Examination Orientation: Person, Place, Situation, Time Memory: Intact Mood: Neutral Affect: Broad Speech: Appropriate Attention: WNL Concentration: WNL Association: WNL Fund of Knowledge: WNL Formal Thought Process: No Impairment Description of patient's judgement and insight: Fair I/J Psychotic Thoughts and Behaviors: No AH/VH/paranoia/delusions Suicidal Ideation: No Current Homicidal Ideation?: No Discharge Summary - Discharge Note Reason for Hospitalization: HPI: 57 yo female w/ h/o HIV (not compliant w/ HAART), HTN, Asthma, Polysubstance abuse, Bipolar disorder, presents s/p suicide attempt by overdosing on Xanax 6 mg, 3 bags of heroin and crack use. Patient reports that she needs help because she does not want to live anymore. She denied current active suicidal ideation and is able to contract for safety while in the hospital. She reports non-compliance with her medications (Zoloft, Trazodone, Seroquel) for at least 1 month. She reports depressed mood, hopelessness, sleep /appetite, disturbances. Denies AH/VH/paranoia/delusions. No HI. PPHx: Multiple past psychiatric admissions for substance abuse and bipolar disorder. She is non-compliant with Zoloft, Trazodone and Seroquel. PMH: HIV, HCV, polysubstance abuse, Asthma, HTN Allergies: PCN Surgical hx: denies Social: +benzodiazepine/ heroin/ cocaine abuse; lives w/ her parents, unemployed Consultations:: List each consultation separately and include: 1. Reason for request. 2. Findings. 3. Follow-up Consultations: Medicine consult Summary of Hospital Course include:: 1. Description of specific treatment plan utilized for patients during their course of treatmen. 2. Summarize the time- course for resolution of acute symptoms and/or regressed behaviors. 3. Describe issues identified and worked on during hospitalization. 4. Describe medication utilized. 5. Describe medical problems identified and treated. 6. Reassessment of suicide risk Summary of Hospital Course: Patient was admitted to the psychiatry unit. Individual and group therapy were provided. Patient was stabilized on Seroquel and Trazodone. She was treated for opioid withdrawal. Psychoeducation provided on the importance of compliance with treatment and medications and the dangers of substance abuse. Patient denies acute AH/VH/SI/HI. She is psychiatrically stable for discharge with outpatient follow-up. - Diagnosis (1) Bipolar 1 disorder Current Visit: No Status: Chronic (2) Polysubstance abuse Current Visit: No Status: Chronic Priority: Medium - Final Diagnosis (DSM 5) Condition upon Discharge: STABLE DSM 5: Bipolar I Disorder; Cocaine/ Benzodiazepine / Opioid Use Disorders Disposition: HOME/ ROUTINE Follow-up Treatment Plan: Bipolar I Disorder; Cocaine/ Benzodiazepine / Opioid Use Disorders -Medicine consult appreciate -Continue Seroquel 400 mg PO HS -Continue Trazodone 300 mg PO HS -Psychoeducation re: substance abuse -Individual and group therapy -Discharge w/ outpatient referral and referral for substance abuse rehabilitation Prescriptions/Medication Reconciliation: Albuterol HFA [Ventolin HFA 90 mcg/actuation (8 g)] 2 puff IH Q4H PRN #1 inhaler PRN Reason: Shortness Of Breath Gabapentin [Neurontin] 300 mg PO TID #90 cap Quetiapine Fumarate [Seroquel] 400 mg PO HS #30 tab Trazodone HCl 300 mg PO HS #30 tab Zolpidem [Ambien] 5 mg PO HS PRN #30 tab PRN Reason: Insomnia - Smoking Cessation Smoking Cessation Medication prescribed: No Reason for not providing: Patient declined - Antipsychotic Medications Pt discharged on 2 or more routine antipsychotic medications: No
[2017-10-20] MEDS: Bacitracin OINT 15GM TOP SCH (09:15)
== END 2017-10-20 13:00 | disposition home or self-care (01) | DRG 885 ==
LOC: H.STEP 18:52
PROVIDERS: ADMIT Psychiatry & Neurology Psychiatry; ATTEND Psychiatry & Neurology Psychiatry
PROC: GZHZZZZ Group Psychotherapy (ICD-10-PCS; principal; 2017-10-11)
PROC: GZ51ZZZ Individual Psychotherapy, Behavioral (ICD-10-PCS; 2017-10-11)
DX: F31.9 Bipolar disorder, unspecified (principal); F11.23 Opioid dependence with withdrawal; F14.10 Cocaine abuse, uncomplicated; G47.00 Insomnia, unspecified; I10 Essential (primary) hypertension; I34.1 Nonrheumatic mitral (valve) prolapse; J44.9 Chronic obstructive pulmonary disease, unspecified; J45.20 Mild intermittent asthma, uncomplicated; Z79.899 Other long term (current) drug therapy; Z91.14 Patient's other noncompliance with medication regimen; B19.20 Unspecified viral hepatitis C without hepatic coma; D64.9 Anemia, unspecified; J40 Bronchitis, not specified as acute or chronic; R56.9 Unspecified convulsions; Z21 Asymptomatic human immunodeficiency virus [HIV] infection status; F17.210 Nicotine dependence, cigarettes, uncomplicated

== ENCOUNTER 2017-11-20 09:15 | Emergency (ER) | payer MEDICARE, MEDICAID ==
[2017-11-20 09:24] VITALS: BMI 22.6
--- NOTE | 2017-11-20 10:26 | ED PDOC ---
Lower Extremity Pain/Injury Chief Complaint (Provider): bilateral leg pain History Per: Patient History/Exam Limitations: no limitations Onset/Duration Of Symptoms: Intermittent Episodes, Other (chronic) Current Symptoms Are (Timing): Still Present Severity: Moderate Pain Scale Rating Of: 7 Additional Complaint(s): 57 yr old F presents to ED with complaint of chronic intermittent episodes of bilateral leg pain. Denies trauma or falls. PMHx includes HIV (non compliant with HAART), HCV, HTN, asthma, polysubstance abuse and bipolar disorder. Reports she was able to walk 4 blocks to ED today. Leg pain is 7/10, dull ache, not alleviated by anything, exacerbated by walking. Patient also reports experiencing SOB last night. Denies fevers, chills, sputum production, LE swelling, chest pain, palpitations, dizziness or syncope. She used her albuterol inhaler twice last night and didn't feel it helped, today she reports minimal SOB. She reports being able to go up 5 flights of stairs at home and stopping frequently due to leg pain, but not due SOB. Denies use of any drugs in the last 6 months. Patient reports she feels " very depressed" and would like to "hurt myself, I'm tired of my pain and living", reports she would "stab myself with a knife at home". Denies want to hurt someone else. PMD: Carlo Landis - Risk Factors DVT Risk Factors: Pos: None <Karely Martini - Last Filed: 11/20/17 16:57> <Dirk Bah - Last Filed: 11/21/17 14:46> Time Seen by Provider: 11/20/17 09:42 Chief Complaint (Nursing): Lower Extremity Problem/Injury Supervising Attending Note - Supervising Attending Note The Documented history was done by the: Physician Clark Driver, Attending Physician The documented physical exam was done by the: Physician Clark Driver, Attending Physician The documented procedures were done by the: Physician Clark Driver, Attending Physician - Attestation: I have personally seen and examined this patient.: Yes I have fully participated in the care of the patient.: Yes I have reviewed all pertinent clinical information, including history, physical exam and plan: Yes <Dirk Bah - Last Filed: 11/21/17 14:46> Past Medical History Vital Signs: Last Vital Signs Temp 97.5 F L 11/20/17 09:24 Pulse 83 11/20/17 09:24 Resp 20 11/20/17 09:24 BP 121/77 11/20/17 09:24 Pulse Ox 99 11/20/17 09:24 - Medical History PMH: Anemia, Anxiety, Asthma, Bipolar Disorder, Bronchitis, COPD, Depression, HIV, HTN, Mitral Valve Prolapse, Paranoia, Personality Disorder, Seizures ( withdrawal induced) Denies: Atrial Fibrillation, Cardia Arrhythmia, CHF, Diabetes, Emphysema, Hepatitis, Hypercholesterolemia, Peripheral Edema, Pneumonia, Pulmonary Embolism , Chronic Kidney Disease, Sickle Cell Disease, Sexually Transmitted Disease, Sleep Apnea, TIA - Surgical History Surgical History: Tonsillectomy Denies: Pacemaker - Family History Family History: States: Unknown Family Hx - Living Arrangements Living Arrangements: With Family - Social History Current smoker - smoking cessation education provided: Yes Drugs: Denies (use in past 6 months) - Immunization History Hx Tetanus Toxoid Vaccination: Yes Hx Influenza Vaccination: Yes Hx Pneumococcal Vaccination: Yes <Karely Martini - Last Filed: 11/20/17 16:57> Reviewed: Historical Data, Nursing Documentation, Vital Signs Vital Signs: Last Vital Signs Temp 97.9 F 11/20/17 14:55 Pulse 74 11/20/17 14:55 Resp 17 11/20/17 14:55 BP 135/69 11/20/17 14:55 Pulse Ox 99 11/20/17 16:58 <Dirk Bah - Last Filed: 11/21/17 14:46> - Home Medications Home Medications: Ambulatory Orders Medication Instructions Recorded Multimineral/Multivitamin 1 tab PO DAILY tab 10/10/17 [Therapeutic-M Tab] Albuterol HFA [Ventolin HFA 90 2 puff IH Q4H PRN #1 inhaler 10/19/17 mcg/actuation (8 g)] Gabapentin [Neurontin] 300 mg PO TID #90 cap 10/19/17 Zolpidem [Ambien] 5 mg PO HS PRN #30 tab 10/19/17 Quetiapine Fumarate [Seroquel] 400 mg PO HS #5 tab 11/20/17 Trazodone HCl 300 mg PO HS #5 tab 11/20/17 - Allergies Allergies/Adverse Reactions: Allergies Allergy/AdvReac Type Severity Reaction Status Date / Time Penicillins Allergy pt reports Verified 10/09/17 17:08 seizures Wells Criteria for PE - Wells Criteria for Pulmonary Embolism Clinical Signs and Symptoms of DVT: No P.E is #1 Diagnosis, or Equally Likely: No Heart Rate >100: No Immobilization at least 3 days;Surgery previous 4 weeks: No Previous, objectively diagnosed PE or DVT: No Hemoptysis: No Malignancy w/treatment within 6 months, or palliative: No Total Score: 0 <Karely Martini - Last Filed: 11/20/17 16:57> Review of Systems Constitutional: Negative for: Fever, Chills Eyes: Negative for: Vision Change ENT: Positive for: Nose Congestion. Negative for: Nose Discharge, Throat Pain Cardiovascular: Negative for: Chest Pain, Palpitations, Edema, Light Headedness Respiratory: Negative for: Cough, Shortness of Breath, SOB with Exertion, Sputum , Wheezing Gastrointestinal: Negative for: Nausea, Vomiting, Abdominal Pain, Diarrhea Genitourinary Female: Negative for: Dysuria, Frequency Musculoskeletal: Negative for: Neck Pain, Shoulder Pain, Arm Pain Skin: Positive for: Lesions (superficial abrasions) Neurological: Negative for: Weakness, Numbness, Incoordination, Change in Speech , Confusion, Seizures, Headache, Dizziness Psych: Positive for: Depression, Suicidal ideation <Karely Martini - Last Filed: 11/20/17 16:57> Physical Exam - Physical Exam Appears: Positive for: No Acute Distress Head Exam: Positive for: ATRAUMATIC, NORMOCEPHALIC Skin: Positive for: Normal Color, Warm, Dry, Rash (multiple abrasions and scratch hardy in face, bilateral UE and LE) Eye Exam: Positive for: EOMI, PERRL ENT: Negative for: Pharyngeal Erythema, Tonsillar Exudate Neck: Positive for: Painless ROM, Supple Cardiovascular/Chest: Positive for: Regular Rate, Rhythm, Chest Non Tender. Negative for: Gallop, Murmur, Tachycardia Respiratory: Positive for: Normal Breath Sounds. Negative for: Crackles, Rales , Rhonchi, Wheezing Pulses-Carotid (L): 2+ Pulses-Carotid (R): 2+ Pulses-Dorsalis Pedis (L): 2+ Pulses-Dorsalis Pedis (R): 2+ Pulses-Radial (L): 2+ Pulses-Radial (R): 2+ Gastrointestinal/Abdominal: Positive for: Normal Exam, Bowel Sounds (present), Soft. Negative for: Tenderness Extremity: Positive for: Normal ROM. Negative for: Tenderness, Pedal Edema, Calf Tenderness, Swelling Neurologic/Psych: Positive for: Alert, president of [place] II-XII, Mood/Affect (depressed, positive for suicidal ideation, negative for homicidal ideation), Gait (normal) . Negative for: Motor/Sensory Deficits, Aphasia, Facial Droop <Karely Martini - Last Filed: 11/20/17 16:57> - Reviewed Nursing Documentation Reviewed: Yes Vital Signs Reviewed: Yes <Dirk Bah - Last Filed: 11/21/17 14:46> - ECG O2 Sat by Pulse Oximetry: 99 - Progress ED Course And Treament: -EKG -serum alcohol level, urine drug screen -1:1, crisis evaluation -13:57 Patient was evaluated by psych and cleared for discharge. -14:36: Patient remains cooperative, asymptomatic, bilateral leg pain has improved. <Karely Martini - Last Filed: 11/20/17 16:57> Disposition - Patient ED Disposition Is Patient to be Admitted: No Counseled Patient/Family Regarding: Need For Followup, Rx Given - Disposition Disposition Time: 14:55 <Karely Martini - Last Filed: 11/20/17 16:57> Counseled Patient/Family Regarding: Studies Performed, Diagnosis - Disposition Disposition: Routine/Home <Dirk Bah - Last Filed: 11/21/17 14:46> - Clinical Impression Clinical Impression: Polysubstance abuse, Depression - Disposition Referrals: [facility] [Outside] Condition: GOOD Additional Instructions: Follow up with your PCP in 2-3 days Prescriptions: Quetiapine Fumarate [Seroquel] 400 mg PO HS #5 tab Trazodone HCl 300 mg PO HS #5 tab Instructions: Depression
[2017-11-20 14:56] VITALS: BP 135/69; PULSE 74; RESP 17; TEMP 97.9
[2017-11-20 16:58] VITALS: O2SAT 99
== END 2017-11-20 14:50 | disposition home or self-care (01) ==
LOC: H.ER 09:15
DX: F19.10 Other psychoactive substance abuse, uncomplicated (principal); F32.9 Major depressive disorder, single episode, unspecified; F31.9 Bipolar disorder, unspecified; F41.9 Anxiety disorder, unspecified; I10 Essential (primary) hypertension; I34.1 Nonrheumatic mitral (valve) prolapse; J44.9 Chronic obstructive pulmonary disease, unspecified; Z88.0 Allergy status to penicillin
CPT/HCPCS: 99284; G0480

== ENCOUNTER 2017-11-25 07:53 | Emergency (ER) | payer MEDICARE, MEDICAID ==
[2017-11-25 07:55] VITALS: BMI 23.3
--- NOTE | 2017-11-25 08:13 | ED PDOC ---
HPI: General Adult Time Seen by Provider: 11/25/17 07:59 Chief Complaint (Nursing): Med Refill Chief Complaint (Provider): Med Refill History Per: Patient Onset/Duration Of Symptoms: Hrs Current Symptoms Are (Timing): Still Present Additional Complaint(s): 57 year old female presents to the ED for a medication refill of Trazodone, Seroquel and Ambien. Patient denies suicidal ideation and homicidal ideation. Patient reports she has an appointment scheduled for with her psychiatrist. Patient has no additional complaints. Past Medical History Reviewed: Historical Data, Nursing Documentation, Vital Signs Vital Signs: Last Vital Signs Temp 98 F 11/25/17 07:56 Pulse 105 H 11/25/17 07:56 Resp 16 11/25/17 07:56 BP 133/86 11/25/17 07:56 Pulse Ox 96 11/25/17 08:23 - Medical History PMH: Anemia, Anxiety, Asthma, Bipolar Disorder, Bronchitis, COPD, Depression, HIV, HTN, Mitral Valve Prolapse, Paranoia, Personality Disorder, Seizures ( withdrawal induced) Denies: Atrial Fibrillation, Cardia Arrhythmia, CHF, Diabetes, Emphysema, Hepatitis, Hypercholesterolemia, Peripheral Edema, Pneumonia, Pulmonary Embolism , Chronic Kidney Disease, Sickle Cell Disease, Sexually Transmitted Disease, Sleep Apnea, TIA - Surgical History Surgical History: Tonsillectomy Denies: Pacemaker - Family History Family History: States: Unknown Family Hx - Immunization History Hx Tetanus Toxoid Vaccination: Yes Hx Influenza Vaccination: Yes Hx Pneumococcal Vaccination: Yes - Home Medications Home Medications: Ambulatory Orders Medication Instructions Recorded Multimineral/Multivitamin 1 tab PO DAILY tab 10/10/17 [Therapeutic-M Tab] Albuterol HFA [Ventolin HFA 90 2 puff IH Q4H PRN #1 inhaler 10/19/17 mcg/actuation (8 g)] Gabapentin [Neurontin] 300 mg PO TID #90 cap 10/19/17 Zolpidem [Ambien] 5 mg PO HS PRN #30 tab 10/19/17 Quetiapine Fumarate [Seroquel] 400 mg PO HS #5 tab 11/20/17 Trazodone HCl 300 mg PO HS #5 tab 11/20/17 Quetiapine Fumarate [Seroquel] 400 mg PO HS #10 tablet 11/25/17 traZODone [Desyrel] 300 mg PO HS #30 tab 11/25/17 - Allergies Allergies/Adverse Reactions: Allergies Allergy/AdvReac Type Severity Reaction Status Date / Time Penicillins Allergy pt reports Verified 10/09/17 17:08 seizures Review of Systems ROS Statement: Except As Marked, All Systems Reviewed And Found Negative Psych: Positive for: Other (medication refill of trazodone, seroquel, and ambien ) Physical Exam - Reviewed Nursing Documentation Reviewed: Yes Vital Signs Reviewed: Yes - Physical Exam Appears: Positive for: Non-toxic, No Acute Distress Head Exam: Positive for: ATRAUMATIC, NORMAL INSPECTION, NORMOCEPHALIC Skin: Positive for: Normal Color, Warm, Dry Eye Exam: Positive for: EOMI, Normal appearance, PERRL ENT: Positive for: Normal ENT Inspection Neck: Positive for: Normal, Painless ROM, Supple Cardiovascular/Chest: Positive for: Regular Rate, Rhythm. Negative for: Murmur Respiratory: Positive for: Normal Breath Sounds. Negative for: Respiratory Distress Gastrointestinal/Abdominal: Positive for: Normal Exam, Soft. Negative for: Tenderness Back: Positive for: Normal Inspection. Negative for: L CVA Tenderness, R CVA Tenderness, Vertebral Tenderness Extremity: Positive for: Normal ROM. Negative for: Pedal Edema, Deformity Neurologic/Psych: Positive for: Alert, Oriented. Negative for: Motor/Sensory Deficits - ECG O2 Sat by Pulse Oximetry: 96 (RA) Pulse Ox Interpretation: Normal Medical Decision Making Medical Decision Making: Scribe Attestation: Documented by Wilbert Ward, acting as a scribe for Dr. Karina Wick MD. Provider Scribe Attestation: All medical record entries made by the Scribe were at my direction and personally dictated by me. I have reviewed the chart and agree that the record accurately reflects my personal performance of the history, physical exam, medical decision making, and the department course for this patient. I have also personally directed, reviewed, and agree with the discharge instructions and disposition. Disposition - Clinical Impression Clinical Impression: Medication refill - Patient ED Disposition Is Patient to be Admitted: No - Disposition Disposition: Routine/Home Disposition Time: 08:09 Condition: GOOD Additional Instructions: FOLLOW-UP WITH PREVIOUSLY SCHEDULED APPOINTMENT. Prescriptions: Quetiapine Fumarate [Seroquel] 400 mg PO HS #10 tablet traZODone [Desyrel] 300 mg PO HS #30 tab Instructions: Where to Get Help Paying for Your Prescriptions Forms: [employer] (Nepali)
[2017-11-25 09:13] VITALS: BP 122/68; PULSE 85; RESP 14; TEMP 98; O2SAT 99
== END 2017-11-25 09:13 | disposition home or self-care (01) ==
LOC: H.ER 07:53
DX: Z76.0 Encounter for issue of repeat prescription (principal)

== ENCOUNTER 2018-01-06 10:15 | Inpatient (IN) | payer MEDICARE, MEDICAID ==
[2018-01-06 10:27] VITALS: BMI 22.6
--- NOTE | 2018-01-06 10:45 | ED PDOC ---
HPI: Psych/Substance Abuse Time Seen by Provider: 01/06/18 10:35 Chief Complaint (Provider): Suicidal thoughts History Per: Patient History/Exam Limitations: no limitations Onset/Duration Of Symptoms: Days (today) Additional Complaint(s): Pt. with suicidal thoughts. No act on thoughts. Not homicidal. Did not do any drugs, etoh, or take meds to hurt self. No weakness, chest pain, abd pain. Had wheezes today that went away with 1 albuterol tx at home. No dyspnea currently. No leg pain. Past Medical History Reviewed: Nursing Documentation, Vital Signs Vital Signs: Last Vital Signs Temp 98.3 F 01/06/18 10:26 Pulse 107 H 01/06/18 10:26 Resp 20 01/06/18 10:26 BP 141/86 01/06/18 10:26 Pulse Ox 96 01/06/18 10:26 - Medical History PMH: Anemia, Anxiety, Asthma, Bipolar Disorder, Bronchitis, COPD, Depression, HIV, HTN, Mitral Valve Prolapse, Paranoia, Personality Disorder, Seizures ( withdrawal induced) Denies: Atrial Fibrillation, Cardia Arrhythmia, CHF, Diabetes, Emphysema, Hepatitis, Hypercholesterolemia, Peripheral Edema, Pneumonia, Pulmonary Embolism , Chronic Kidney Disease, Sickle Cell Disease, Sexually Transmitted Disease, Sleep Apnea, TIA Other PMH: overdose hx - Surgical History Surgical History: Tonsillectomy Denies: Pacemaker - Family History Family History: States: Unknown Family Hx - Immunization History Hx Tetanus Toxoid Vaccination: Yes Hx Influenza Vaccination: Yes Hx Pneumococcal Vaccination: Yes - Home Medications Home Medications: Ambulatory Orders Medication Instructions Recorded Albuterol HFA [Ventolin HFA 90 2 puff IH Q4H PRN #1 inhaler 10/19/17 mcg/actuation (8 g)] Gabapentin [Neurontin] 300 mg PO TID #90 cap 10/19/17 Zolpidem [Ambien] 5 mg PO HS PRN #30 tab 10/19/17 Quetiapine Fumarate [Seroquel] 400 mg PO HS #10 tablet 11/25/17 traZODone [Desyrel] 300 mg PO HS #30 tab 11/25/17 Emtricitabine/Tenofovir Diso 1 tab PO DAILY 01/06/18 [Truvada 200 MG-300 MG] Raltegravir Potassium [Isentress] 400 mg PO BID 01/06/18 Sulfamethoxazole/Trimethoprim 160 - 800 mg PO BID 01/06/18 [Sulfamethoxazole-Tmp Ss Tablet] - Allergies Allergies/Adverse Reactions: Allergies Allergy/AdvReac Type Severity Reaction Status Date / Time Penicillins Allergy pt reports Verified 10/09/17 17:08 seizures Review of Systems ROS Statement: Except As Marked, All Systems Reviewed And Found Negative Respiratory: Positive for: Wheezing Psych: Positive for: Suicidal ideation Physical Exam - Reviewed Nursing Documentation Reviewed: Yes Vital Signs Reviewed: Yes - Physical Exam Appears: Positive for: Uncomfortable Head Exam: Positive for: ATRAUMATIC, NORMAL INSPECTION, NORMOCEPHALIC Skin: Positive for: Normal Color, Warm, DRY Eye Exam: Positive for: EOMI, Normal appearance, PERRL ENT: Positive for: Normal ENT Inspection Neck: Positive for: Normal, Painless ROM Cardiovascular/Chest: Positive for: Regular Rate, Rhythm Respiratory: Positive for: Normal Breath Sounds. Negative for: Decreased Breath Sounds, Wheezing Gastrointestinal/Abdominal: Positive for: Normal Exam, Soft Back: Positive for: Normal Inspection. Negative for: L CVA Tenderness, R CVA Tenderness Extremity: Positive for: Normal ROM. Negative for: Tenderness Neurologic/Psych: Positive for: Alert, Oriented - Laboratory Results Result Diagrams: 01/06/18 11:58 01/06/18 11:58 Interpretation Of Abn Labs: opiate pos; acetamenophen pos - ECG ECG: Positive for: Interpreted By Me, Viewed By Me ECG Rhythm: Positive for: Normal QRS, Normal ST Segment, Sinus Rhythm O2 Sat by Pulse Oximetry: 96 Pulse Ox Interpretation: Normal - Progress ED Course And Treament: 1134: Pt. states to crisis that she took 10 tylenol with codeine and 8 xanax at 9pm yesterday evening. Unclear if she took her routine meds or not. Pt. on seroquel, trazadone, ambien. Will get further evaluation and work up. 1140: Spoke with poison control. Recommends routine evaluation and levels. Will consider starting acetadote till levels are back. States if coags and levels neg, pt. can stop acetadote. 1231: Elevated tylenol level. Considering overdose, will need admit for tx. Spoke with [facility] resident who will admit tele. Pt. is stable. AAOx3. Pain free. Tolerated PO. - Critical Care Total Time (In Min): 30 Documented Critical Care: Time excludes all time spent performint seperately billable procedures Disposition - Clinical Impression Clinical Impression: Tylenol overdose - Patient ED Disposition Is Patient to be Admitted: Yes Counseled Patient/Family Regarding: Studies Performed, Diagnosis - Disposition Disposition Time: 12:32 Condition: FAIR - Pt Status Changed To: Hospital Disposition Of: Inpatient - Admit Certification Admit to Inpatient:: After my assessment, the patient will require hospitalization for at least two midnights. This is because of the severity of symptoms shown, intensity of services needed, and/or the medical risk in this patient being treated as an outpatient. - POA Present On Arrival: None
[2018-01-06] MEDS ORDERED: WATER IVPB STA ×2 (11:43→13:50)
[2018-01-06] MEDS ORDERED: ACETYLCYSTEINE IVPB STA ×2 (11:43→13:50)
[2018-01-06] MEDS ORDERED: DEXTROSE 5% IVPB STA ×2 (11:43→13:50)
[2018-01-06 12:09] LABS: BASO % 0.5 % (0.0-2.0); EOS % 0.3 % (0.0-4.0); HEMOGLOBIN 13.2 g/dL (12.0-16.0); LYMPH # 1.4 K/uL (1.0-4.3); LYMPH % 26.9 % (20.0-40.0); MEAN CELL VOLUME 84.4 fl (81.0-99.0); MEAN CORPUSCULAR HEMOGLOBIN 28.6 pg (27.0-31.0); MEAN CORPUSCULAR HGB CONC 33.9 g/dL (33.0-37.0); MEAN PLATELET VOLUME 9.3 fl (7.2-11.7); MONO # 0.4 K/uL (0.0-0.8); MONO % 7.8 % (0.0-10.0); NEUT # 3.2 K/uL (1.8-7.0); NEUT % 64.5 % (50.0-75.0); RBC 4.62 Mil/uL (3.80-5.20); RED CELL DISTRIBUTION WIDTH 16.8 % (11.5-14.5)
[2018-01-06 12:14] LABS: ALB/GLOB RATIO 0.7 (1.0-2.1); ALBUMIN 3.8 g/dL (3.5-5.0); ALT/SGPT 25 U/L (9-52); AST/SGOT 31 U/L (14-36); BLOOD UREA NITROGEN 20 mg/dl (7-17); CALCIUM 9.2 mg/dL (8.4-10.2); GFR AFRICAN-AMERICAN > 60; GFR NON-AFRICAN AMERICAN > 60
[2018-01-06 12:19] LABS: BARBITURATES, UR NEGATIVE (NEGATIVE)
[2018-01-06 12:22] LABS: BENZODIAZEPINES, UR POSITIVE (NEGATIVE); OPIATES, UR POSITIVE (NEGATIVE); PHENCYCLIDINE, UR NEGATIVE (NEGATIVE)
[2018-01-06] MEDS ORDERED: DEXTROSE 5% IVPB SCH (12:45)
[2018-01-06] MEDS ORDERED: ACETYLCYSTEINE IVPB SCH (12:45)
[2018-01-06] MEDS ORDERED: WATER IVPB SCH (12:45)
[2018-01-06 12:55] LABS: INR 1.1 (0.9-1.2); PARTIAL THROMBOPLASTIN TIME 30.1 Seconds (25.6-37.1); PROTHROMBIN TIME 11.8 Seconds (9.8-13.1)
[2018-01-06] MEDS ORDERED: Albuterol HFA 90 mcg/actuation (8 g) IH PRN (13:47)
--- NOTE | 2018-01-06 13:47 | CP.PCM.HP ---
History of Present Illness - History of Present Illness History of Present Illness: Hx taken from patient and medical records Full code PMD: Calro Rogers Next of kin: Carlo Kilgore(Father) 57 y/o F with PMhx of HIV, Substance abuse, Asthma, depression, Hep C presented to ED c/o SOB and depression. Upon being questioned patient admitted taking acetaminophen and xanax pills yesterday and treatment was started with NAC pending Acetaminphen levels. Poison control was called as well as crisis eval. When evaluated patient is alert, oriented not in acute distress, states SOB has markedly improved and denies abd pain, nausea, vomiting, diarrhea or headache. She admitted taking 10 tablets of Tylenol #3 Yesterday morning and few tabs of Xanax. Denies any other drugs or ETOH. Admits feeling depressed and that she decided to come because she dosnt want to use heroin as she used to do in the past whenever she was depressed. As per patient she has been taking her HIV meds as prescribed. ED course: CMP and CBC unremarkable VS Stable NAC started PMH: HIV, HCV, polysubstance abuse, Asthma, HTN Medications: HIV meds Allergies: PCN Surgical hx: denies Social: +benzodiazepenes, denies heroin, marijuana, cocaine, tobacco recently. Hx of heroin abuse. LMP: unable to state Family hx: unknown Present on Admission - Present on Admission Any Indicators Present on Admission: No Review of Systems - Review of Systems All systems: reviewed and no additional remarkable complaints except (Those described on HPI) Past Patient History - Infectious Disease Hx of Infectious Diseases: None - Past Medical History & Family History Past Medical History?: Yes - Past Social History Smoking Status: Light Smoker < 10 Cigarettes Daily Alcohol: None Home Situation {Lives}: With Family - CARDIAC Hx Cardiac Disorders: No Hx Hypertension: Yes - PULMONARY Hx Tuberculosis: No - NEUROLOGICAL HX Cerebrovascular Accident: No Hx Seizures: Yes (withdrawal induced) - HEENT Hx HEENT Problems: No - RENAL Hx Chronic Kidney Disease: No - ENDOCRINE/METABOLIC Hx Endocrine Disorders: No - HEMATOLOGICAL/ONCOLOGICAL Hx Cancer: No Hx Human Immunodeficiency Virus (HIV): Yes - INTEGUMENTARY Hx Dermatological Problems: No - MUSCULOSKELETAL/RHEUMATOLOGICAL Hx Musculoskeletal Disorders: No - GASTROINTESTINAL Hx Gastrointestinal Disorders: No - GENITOURINARY/GYNECOLOGICAL Hx Sexually Transmitted Disorders: No - PSYCHIATRIC Hx Anxiety: Yes Hx Bipolar Disorder: Yes Hx Depression: Yes Hx Paranoia: Yes - SURGICAL HISTORY Hx Tonsillectomy: Yes - ANESTHESIA Hx Anesthesia: Yes Hx Anesthesia Reactions: No Meds Allergies/Adverse Reactions: Allergies Allergy/AdvReac Type Severity Reaction Status Date / Time Penicillins Allergy pt reports Verified 10/09/17 17:08 seizures Physical Exam - Constitutional Appears: Non-toxic - Head Exam Head Exam: ATRAUMATIC - Eye Exam Eye Exam: EOMI, PERRL - ENT Exam ENT Exam: Mucous Membranes Moist - Respiratory Exam Respiratory Exam: Clear to Auscultation Bilateral, NORMAL BREATHING PATTERN. absent: Decreased Breath Sounds, Rhonchi, Wheezes, Respiratory Distress - Cardiovascular Exam Cardiovascular Exam: REGULAR RHYTHM, +S1, +S2. absent: Gallop - GI/Abdominal Exam GI & Abdominal Exam: Normal Bowel Sounds, Soft. absent: Distended, Guarding, Rebound, Tenderness - Extremities Exam Extremities exam: Positive for: normal capillary refill. Negative for: calf tenderness, tenderness - Back Exam Back exam: rash noted - Neurological Exam Neurological exam: Alert, Oriented x3 - Psychiatric Exam Psychiatric exam: Depressed - Skin Skin Exam: Rash (B/L UE and LE excoriations due to scratching. Middle back superficial skin tear), Warm Results - Vital Signs Recent Vital Signs: Last Vital Signs Temp 98.3 F 01/06/18 10:26 Pulse 73 01/06/18 13:23 Resp 18 01/06/18 13:23 BP 140/90 01/06/18 13:23 Pulse Ox 98 01/06/18 13:23 - Labs Result Diagrams: 01/06/18 11:58 01/06/18 11:58 Labs: Laboratory Results - last 24 hr 01/06/18 01/06/18 01/06/18 11:58 11:58 11:58 WBC 5.0 RBC 4.62 Hgb 13.2 Hct 39.0 MCV 84.4 MCH 28.6 MCHC 33.9 RDW 16.8 H Plt Count 155 MPV 9.3 Neut % (Auto) 64.5 Lymph % (Auto) 26.9 [place] % (Auto) 7.8 Eos % (Auto) 0.3 Baso % (Auto) 0.5 Neut # (Auto) 3.2 Lymph # (Auto) 1.4 [place] # (Auto) 0.4 Eos # (Auto) 0.0 Baso # (Auto) 0.0 PT INR APTT Sodium 145 Potassium 3.6 Chloride 110 H Carbon Dioxide 26 Anion Gap 13 BUN 20 H Creatinine 0.8 Est GFR ( Amer) > 60 Est GFR (Non-Af Amer) > 60 Random Glucose 90 Calcium 9.2 Total Bilirubin 0.6 AST 31 ALT 25 Alkaline Phosphatase 82 Troponin I < 0.0120 Total Protein 8.9 H Albumin 3.8 Globulin 5.2 H Albumin/Globulin Ratio 0.7 L Salicylates Urine Opiates Screen Positive H Urine Methadone Screen Negative Acetaminophen Ur Barbiturates Screen Negative Ur Phencyclidine Scrn Negative Ur Amphetamines Screen Negative U Benzodiazepines Scrn Positive U Oth Cocaine Metabols Negative U Cannabinoids Screen Negative Alcohol, Quantitative < 10 01/06/18 01/06/18 11:58 11:58 WBC RBC Hgb Hct MCV MCH MCHC RDW Plt Count MPV Neut % (Auto) Lymph % (Auto) [place] % (Auto) Eos % (Auto) Baso % (Auto) Neut # (Auto) Lymph # (Auto) [place] # (Auto) Eos # (Auto) Baso # (Auto) PT 11.8 INR 1.1 APTT 30.1 Sodium Potassium Chloride Carbon Dioxide Anion Gap BUN Creatinine Est GFR ( Amer) Est GFR (Non-Af Amer) Random Glucose Calcium Total Bilirubin AST ALT Alkaline Phosphatase Troponin I Total Protein Albumin Globulin Albumin/Globulin Ratio Salicylates 3.0 Urine Opiates Screen Urine Methadone Screen Acetaminophen 32.0 H Ur Barbiturates Screen Ur Phencyclidine Scrn Ur Amphetamines Screen U Benzodiazepines Scrn U Oth Cocaine Metabols U Cannabinoids Screen Alcohol, Quantitative Assessment & Plan - Assessment and Plan (Free Text) Assessment: 57 y/o F with PMhx of HIV, depression admitted for acetaminophen overdose and depression Acetaminophen overdose Acute Level =32(Mild overdose)(As per patient took 10 tabs of Tylenol #3) Suspected amount of acetaminophen ingested = 3g Started on NAC due to concerns about uncertainty of the amount of overdose Liver enzimes and coags WNL on admission Asymptomatic Admit to tele F/U CMP AM Suicidal attempt/Overdose Patient admits depression and taking Xanax and Tylenol #3 Hx of Suicidal attempts in the past F/U as outpatient for depression NOt currently suicidal C/W 1 to 1 OBS Suicide precautions Psych consult. F/U recs C/w Seroquel and Trazodone for now HIV infection Chronic Last CD4 215 VL [address]43(12/08/17) C/W HIV meds C/W Bactrim for PCP prophylaxis Asthma Mild intermittent Duonebs PRN DVT prophylaxis SCDs for now
[2018-01-06] MEDS ORDERED: DEXTROSE 5% IVPB ONE (14:00)
[2018-01-06] MEDS ORDERED: WATER IVPB ONE (14:00)
[2018-01-06] MEDS ORDERED: ACETYLCYSTEINE IVPB ONE (14:00)
[2018-01-07 07:20] LABS: HEMOGLOBIN 13.9 g/dL (12.0-16.0); MEAN CORPUSCULAR HGB CONC 33.8 g/dL (33.0-37.0); RBC 4.97 Mil/uL (3.80-5.20); WHITE BLOOD COUNT 4.3 K/uL (4.8-10.8)
[2018-01-07 07:41] LABS: ALB/GLOB RATIO 0.7 (1.0-2.1); ALBUMIN 3.6 g/dL (3.5-5.0); ALT/SGPT 24 U/L (9-52); AST/SGOT 25 U/L (14-36); BLOOD UREA NITROGEN 12 mg/dl (7-17); GFR AFRICAN-AMERICAN > 60; GFR NON-AFRICAN AMERICAN > 60
[2018-01-07] MEDS: Emtricitabine-Tenofovir 200 mg-300 mg Tab PO SCH (08:53)
[2018-01-07] MEDS: Tmp-Smz 800 mg-160 mg DS Tab PO SCH (08:53)
--- NOTE | 2018-01-07 08:53 | CP.PCM.PN ---
Subjective - Date & Time of Evaluation Date of Evaluation: 01/07/18 Time of Evaluation: 08:52 - Subjective Subjective: 57F seen and examined at bedside with attending. No acute overnight events. 1: 1 at bedside. Pt denies any nausea, vomiting, abdominal pain, SOB, or palpitations. However, she does endorse still wanting to hurt herself and says that would be by taking pills. She again reiterates that she took 10 percocet and 7 Xanax 48 hours ago. Objective - Vital Signs/Intake and Output Vital Signs (last 24 hours): Temp Pulse Resp BP Pulse Ox 36.9 C 89 18 109/73 96 01/07/18 08:11 01/07/18 08:11 01/07/18 08:11 01/07/18 08:11 01/07/18 08:11 - Medications Medications: Current Medications Albuterol (Ventolin Hfa 90 Mcg/Actuation (8 G)) 2 puff IH Q4H PRN PRN Reason: Shortness of Breath Emtricitabine/Tenofovir (Truvada 200 Mg-300 Mg) 1 tab PO DAILY FAY PRN Reason: Protocol Famotidine (Pepcid) 20 mg PO BID [facility] Last Admin: 01/06/18 16:50 Dose: 20 mg Mupirocin (Bactroban Ointment) 1 applic TOP BID [facility] Last Admin: 01/06/18 16:50 Dose: 1 applic Quetiapine Fumarate (Seroquel) 400 mg PO HS [facility] Last Admin: 01/06/18 21:38 Dose: 400 mg Raltegravir (Isentress) 400 mg PO BID FAY PRN Reason: Protocol Last Admin: 01/06/18 16:50 Dose: 400 mg Trazodone HCl (Desyrel) 300 mg PO HS [facility] Last Admin: 01/06/18 21:38 Dose: 300 mg Trimethoprim/Sulfamethoxazole (Bactrim Ds Tab) 1 tab PO DAILY FAY PRN Reason: Protocol - Labs Labs: 01/07/18 07:00 01/07/18 07:00 PT 11.8 Seconds (9.8-13.1) 01/06/18 11:58 INR 1.1 (0.9-1.2) 01/06/18 11:58 APTT 30.1 Seconds (25.6-37.1) 01/06/18 11:58 - Constitutional Appears: Non-toxic, No Acute Distress - Head Exam Head Exam: ATRAUMATIC - Eye Exam Eye Exam: Normal appearance - ENT Exam ENT Exam: Mucous Membranes Moist - Neck Exam Neck Exam: Normal Inspection - Respiratory Exam Respiratory Exam: Clear to Ausculation Bilateral, NORMAL BREATHING PATTERN - Cardiovascular Exam Cardiovascular Exam: REGULAR RHYTHM - GI/Abdominal Exam GI & Abdominal Exam: Soft, Normal Bowel Sounds - Extremities Exam Extremities Exam: Full ROM, Normal Capillary Refill, Normal Inspection - Neurological Exam Neurological Exam: Alert, Awake, Oriented x3 - Psychiatric Exam Psychiatric exam: Depressed, Normal Affect - Skin Skin Exam: Dry, Warm Assessment and Plan - Assessment and Plan (Free Text) Assessment: 57F PMH Hepc/HIV/hx substance abuse admitted for suicidal ideation and suspected Tylenol intoxication. Patient completed treatment for Tylenol ingestion, labs are wnl, and she is otherwise medically stabilized. Plan: Diet: Regular Suicidal Ideation/Depression: Psychiatry consult for voluntary admission to psychiatry unit, c/w 1:1, c/w medications Tylenol Overuse: resolved, Tylenol level ordered 01/08, trend CMP, f/u psych recommendations HIV/AIDS: controlled, s/w home medications DVT Prophylaxis: SC Lovenox Hep C: controlled, outpatient f/u Dispo: Psychiatry unit vs. home depending psychiatry evaluation.
[2018-01-07] MEDS: Potassium Chloride 20 mEq ER Tab PO SCH ×2 (10:30→19:55)
--- NOTE | 2018-01-07 11:21 | CARD ---
APPROVED REPORT EKG Measurement Heart [id number] <Conclusion> Normal sinus rhythm Normal ECG
--- NOTE | 2018-01-07 20:30 | PCM.PSYCH ---
Initial Psychiatric Evaluation - Initial Psychiatric Evaluation Chief Complaint (in patient's own words): presented to [facility] was reported feeling depressed and took parents percoet and alprazolam wanting to suicide impulsive Patient's Reaction to Hospitalization: pt is admitted to a medical floor/telemetry and is verbally agreeable to be transferred to psychiatry when medically cleared. History of Present Illness and Precipitating Events: pt was admitted to medical floor /telemetry status post impulsive overdose percocet and alprazolam, reportedly was and is feeling depressed for several days, denies acute concerns, admits depression has been increasing, multiple medical illnesses and parents with medical illnesses including mother with reportedly worsening alzheimer's disease. reports that was impulsive act did not plan did not write note-currently reports remorse. continues to report depression and concerns about suicidal thoughts related to questionable hope for future. pt has had several inpt admissions at [facility] for suicidal ideation approx. 2 months ago. pt has been seen outpatient basis within [facility] [place] [facility]. pt has been treated at [facility] program. pt has history of being treated by private psychiatrist in past. pt has episodic hx of non adherence with psychotropic medications and admist may missed a few doses prior to admission. 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 pt lives with elderly parents, has a significant family history of substance use. pt is not currently a member of the work force, receiving SSD. Pt. is born and raised in [facility] [place] [place], attended school in [place] and varied short term jobs in past. Pt is not , does not have children and denies having a significant other. Current Medications: Active Medications Generic Name Dose Route Start Last Admin Trade Name Freq PRN Reason Stop Dose Admin Albuterol 2 puff 01/06/18 13:47 Ventolin Hfa 90 Mcg/Actuation (8 G) IH Q4H PRN Shortness of Breath Emtricitabine/Tenofovir 1 tab 01/07/18 09:00 01/07/18 08:53 Truvada 200 Mg-300 Mg PO 1 tab DAILY FAY Administration Protocol Enoxaparin Sodium 40 mg 01/07/18 22:00 Lovenox SC HS FAY Protocol Famotidine 20 mg 01/06/18 17:00 01/07/18 19:56 Pepcid PO 20 mg BID FAY Administration Mupirocin 1 applic 01/06/18 17:00 01/07/18 19:56 Bactroban Ointment TOP 1 applic BID FAY Administration Potassium Chloride 40 meq 01/07/18 09:15 01/07/18 19:55 K-Dur 20 Meq Er Tab PO 01/08/18 01:00 40 meq BID FAY Administration Quetiapine Fumarate 400 mg 01/06/18 22:00 01/06/18 21:38 Seroquel PO 400 mg HS FAY Administration Raltegravir 400 mg 01/06/18 17:00 01/07/18 19:56 Isentress PO 400 mg BID FAY Administration Protocol Trazodone HCl 200 mg 01/07/18 22:00 Desyrel PO HS FAY Trimethoprim/Sulfamethoxazole 1 tab 01/07/18 09:00 01/07/18 08:53 Bactrim Ds Tab PO 1 tab DAILY FAY Administration Protocol Past Psychiatric History - Past Psychiatric History Prior Professional Help: inpt,ph, opd, detox At [facility]: [facility], [facility] Duration: varied History of Abuse: denies History of ETOH/Drug Use: hx of opiate abuse, benzodiazepine abuse, History of Family Illness: family history of substance abuse Pertinent Medical Hx (Current Medical&Sleep Prob, Allergies): Allergies Allergy/AdvReac Type Severity Reaction Status Date / Time Penicillins Allergy pt reports Verified 10/09/17 17:08 seizures Albuterol HFA [Ventolin HFA 90 mcg/actuation (8 g)] 2 puff IH Q4H PRN #1 inhaler 10/19/17 Gabapentin [Neurontin] 300 mg PO TID #90 cap 10/19/17 Zolpidem [Ambien] 5 mg PO HS PRN #30 tab 10/19/17 Quetiapine Fumarate [Seroquel] 400 mg PO HS #10 tablet 11/25/17 traZODone [Desyrel] 300 mg PO HS #30 tab 11/25/17 Emtricitabine/Tenofovir Diso [Truvada 200 MG-300 MG] 1 tab PO DAILY 01/06/18 Raltegravir Potassium [Isentress] 400 mg PO BID 01/06/18 Sulfamethoxazole/Trimethoprim [Sulfamethoxazole-Tmp Ss Tablet] 160 - 800 mg PO BID 01/06/18 Review of Systems - Psychiatric Psychiatric: Abnormal Sleep Pattern, Depression, Hopelessness, Suicidal Ideation Additional comments: suicide attempt Mental Status Examination - Personal Presentation Personal Presentation: Looks stated age - Affect Affect: Constricted - Motor Activity Motor Activity: Calm, Psychomotor Retardation - Reliability in Providing Information Reliability in Providing Information: Fair - Speech Speech: Organized - Mood Mood: Depressed - Formal Thought Process Formal Thought Process: No Impairment - Obsessions/Compulsions Obsessions: No Compulsions: No - Cognitive Functions Orientation: Person, Place, Situation, Time Sensorium: Alert Attention/Concentration: Attentive Judgement: Imparied, as evidence by: Other - Risk Risk: Suicidal, Diminished functioning - Strength & Assets Inventory Strength & Assets Inventory: Family support, Cooperative (hx non adherence, suicide attempts in past, family circumstances) DSM 5 DX - DSM 5 DSM 5 Diagnosis: shizoaffective disorder bipolar type suicide attempt-opiate/benzodiazepine polysubstance use: opiate recovery per hx, benzodiazepine recovery, nicotine "1 cigarette a day" - Recommended/Plan of Treatment Treatment Recommendations and Plan of Treatment: pt to be transferred to inpatient psychiatry per attending psychiatrist Dr. Marshall once pt is medically cleared, medications to be continued (psychiatry until that time) Once on psychiatry medications can be reevaluated per clinical status-in past pt has deferred long acting antipsychotics mood stabilizers-may be revisited Projected ELOS: 5-7 days or per clinical status Prognosis: guarded Discharge Plan and Discharge Criteria: safety - Smoking Cessation Smoking Cessation Initiated: No Reason for not providing: pt defers
[2018-01-07] MEDS ORDERED: Enoxaparin 40 mg Syringe SC SCH (22:00)
[2018-01-08 06:14] LABS: ALB/GLOB RATIO 0.7 (1.0-2.1); ALBUMIN 3.4 g/dL (3.5-5.0); ALT/SGPT 29 U/L (9-52); AST/SGOT 32 U/L (14-36); BLOOD UREA NITROGEN 14 mg/dl (7-17); CALCIUM 8.9 mg/dL (8.4-10.2); GFR AFRICAN-AMERICAN > 60; GFR NON-AFRICAN AMERICAN 57
[2018-01-08 07:58] VITALS: RESP 18
[2018-01-08] MEDS: Emtricitabine-Tenofovir 200 mg-300 mg Tab PO SCH (08:41)
[2018-01-08] MEDS: Tmp-Smz 800 mg-160 mg DS Tab PO SCH (08:42)
[2018-01-08 12:01] VITALS: BP 104/71; PULSE 85; TEMP 98.2; O2SAT 96
--- NOTE | 2018-01-08 12:56 | CP.PCM.DIS ---
Provider - Provider Date of Admission: 01/06/18 12:29 Attending physician: Ngoc Bush MD [facility] Consults: Psych, Ken, Carlo Wound care SW Time Spent in preparation of Discharge (in minutes): 40 Diagnosis - Discharge Diagnosis (1) Acetaminophen overdose Status: Acute (2) Suicidal behavior Status: Acute (3) HIV (human immunodeficiency virus infection) Status: Chronic (4) Asthma Status: Chronic Hospital Course - Lab Results Lab Results: Most Recent Lab Values WBC 4.3 K/uL (4.8-10.8) L 01/07/18 07:00 RBC 4.97 Mil/uL (3.80-5.20) 01/07/18 07:00 Hgb 13.9 g/dL (12.0-16.0) 01/07/18 07:00 Hct 41.3 % (34.0-47.0) 01/07/18 07:00 MCV 83.0 fl (81.0-99.0) 01/07/18 07:00 MCH 28.0 pg (27.0-31.0) 01/07/18 07:00 MCHC 33.8 g/dL (33.0-37.0) 01/07/18 07:00 RDW 17.0 % (11.5-14.5) H 01/07/18 07:00 Plt Count 145 K/uL (130-400) 01/07/18 07:00 MPV 9.3 fl (7.2-11.7) 01/06/18 11:58 Neut % (Auto) 64.5 % (50.0-75.0) 01/06/18 11:58 Lymph % (Auto) 26.9 % (20.0-40.0) 01/06/18 11:58 [place]iscoe % (Auto) 7.8 % (0.0-10.0) 01/06/18 11:58 Eos % (Auto) 0.3 % (0.0-4.0) 01/06/18 11:58 Baso % (Auto) 0.5 % (0.0-2.0) 01/06/18 11:58 Neut # (Auto) 3.2 K/uL (1.8-7.0) 01/06/18 11:58 Lymph # (Auto) 1.4 K/uL (1.0-4.3) 01/06/18 11:58 Briscoe # (Auto) 0.4 K/uL (0.0-0.8) 01/06/18 11:58 Eos # (Auto) 0.0 K/uL (0.0-0.7) 01/06/18 11:58 Baso # (Auto) 0.0 K/uL (0.0-0.2) 01/06/18 11:58 PT 11.8 Seconds (9.8-13.1) 01/06/18 11:58 INR 1.1 (0.9-1.2) 01/06/18 11:58 APTT 30.1 Seconds (25.6-37.1) 01/06/18 11:58 Sodium 142 mmol/l (132-148) 01/08/18 04:20 Potassium 3.9 MMOL/L (3.6-5.0) 01/08/18 04:20 Chloride 111 mmol/L (98-107) H 01/08/18 04:20 Carbon Dioxide 26 mmol/L (22-30) 01/08/18 04:20 Anion Gap 9 (10-20) L 01/08/18 04:20 BUN 14 mg/dl (7-17) 01/08/18 04:20 Creatinine 1.0 mg/dl (0.7-1.2) 01/08/18 04:20 Est GFR ( Amer) > 60 01/08/18 04:20 Est GFR (Non-Af Amer) 57 01/08/18 04:20 Random Glucose 91 mg/dL (65-105) 01/08/18 04:20 Calcium 8.9 mg/dL (8.4-10.2) 01/08/18 04:20 Total Bilirubin 0.6 mg/dl (0.2-1.3) 01/08/18 04:20 AST 32 U/L (14-36) 01/08/18 04:20 ALT 29 U/L (9-52) 01/08/18 04:20 Alkaline Phosphatase 71 U/L (38-126) 01/08/18 04:20 Troponin I < 0.0120 ng/mL (0.00-0.120) 01/06/18 11:58 Total Protein 8.0 G/DL (6.3-8.2) 01/08/18 04:20 Albumin 3.4 g/dL (3.5-5.0) L 01/08/18 04:20 Globulin 4.6 gm/dL (2.2-3.9) H 01/08/18 04:20 Albumin/Globulin Ratio 0.7 (1.0-2.1) L 01/08/18 04:20 Salicylates 3.0 mg/dl 01/06/18 11:58 Urine Opiates Screen Positive (NEGATIVE) H 01/06/18 11:58 Urine Methadone Screen Negative (NEGATIVE) 01/06/18 11:58 Acetaminophen < 10.0 ug/ml (10.0-30.0) L 01/07/18 15:20 Ur Barbiturates Screen Negative (NEGATIVE) 01/06/18 11:58 Ur Phencyclidine Scrn Negative (NEGATIVE) 01/06/18 11:58 Ur Amphetamines Screen Negative (NEGATIVE) 01/06/18 11:58 U Benzodiazepines Scrn Positive (NEGATIVE) 01/06/18 11:58 U Oth Cocaine Metabols Negative (NEGATIVE) 01/06/18 11:58 U Cannabinoids Screen Negative (NEGATIVE) 01/06/18 11:58 Alcohol, Quantitative < 10 mg/dl (0-10) 01/06/18 11:58 - Hospital Course Hospital Course: 57F PMH Hepc/HIV/hx of substance abuse admitted for suicidal ideation and suspected Tylenol intoxication (10 percocet and 7 Xanax ). Poison controlled was informed, n-acetylcysteine treatment protocol was started, Labs were followed no elevated LFTs, Tylenol serum level less than 10 today. Patient was started on her HIV meds with ppx treatment and home medications. Psych was consulted who recommended inpatient psych after medically stable. Patient is medically stable and discharged for psych inpatient evaluation. Will consult as needed. Discharge Exam - Head Exam Head Exam: ATRAUMATIC - Eye Exam Eye Exam: Normal appearance - ENT Exam ENT Exam: Mucous Membranes Moist - Neck Exam Neck exam: Normal Inspection - Respiratory Exam Respiratory Exam: Clear to PA & Lateral, NORMAL BREATHING PATTERN - Cardiovascular Exam Cardiovascular Exam: REGULAR RHYTHM - GI/Abdominal Exam GI & Abdominal Exam: Normal Bowel Sounds, Soft - Extremities Exam Extremities exam: full ROM, normal capillary refill, normal inspection - Back Exam Back exam: absent: CVA tenderness (L), CVA tenderness (R) - Neurological Exam Neurological exam: Alert, Oriented x3 - Psychiatric Exam Psychiatric exam: Normal Affect - Skin Skin Exam: Normal Color Discharge Plan - Follow Up Plan Condition: FAIR Disposition: DISCHARGE TO PSYCH HOSPITAL Instructions: Acetaminophen Overdose (DC) Additional Instructions: Transfer to Psych for eval and treatment (will follow as needed while inpatient) Follow [facility]/ Dr. Abdullahi after discharge C/w HIV medications + home medication
== END 2018-01-08 16:00 | DRG 917 ==
LOC: H.ER 10:15 → H.ERHOLD 12:29 → H.TEL 14:31
PROVIDERS: ADMIT Family Medicine Geriatric Medicine; ATTEND Family Medicine Geriatric Medicine
DX: T39.1X2A Poisoning by 4-Aminophenol derivatives, intentional self-harm, initial encounter (principal); B20 Human immunodeficiency virus [HIV] disease; T42.4X2A Poisoning by benzodiazepines, intentional self-harm, initial encounter; T40.2X2A Poisoning by other opioids, intentional self-harm, initial encounter; F25.0 Schizoaffective disorder, bipolar type; F11.10 Opioid abuse, uncomplicated; F13.10 Sedative, hypnotic or anxiolytic abuse, uncomplicated; F60.9 Personality disorder, unspecified; F41.9 Anxiety disorder, unspecified; J45.20 Mild intermittent asthma, uncomplicated; B19.20 Unspecified viral hepatitis C without hepatic coma; I10 Essential (primary) hypertension; I34.1 Nonrheumatic mitral (valve) prolapse; D64.9 Anemia, unspecified; F17.210 Nicotine dependence, cigarettes, uncomplicated; Z79.899 Other long term (current) drug therapy; Z88.0 Allergy status to penicillin; Y92.009 Unspecified place in unspecified non-institutional (private) residence as the place of occurrence of the external cause

== ENCOUNTER 2018-01-08 18:04 | Inpatient (IN) | payer MEDICARE, MEDICAID ==
[2018-01-08 18:15] VITALS: BMI 23.3
--- NOTE | 2018-01-08 20:38 | PCM.BM ---
<BharathKaty - Last Filed: 01/08/18 20:36> Treatment Plan Problems - Problems identified on initial assessmt Problem 1 Date Initiated: 01/08/18 Time Initiated: 20:37 Assessment reference: NA Problem 2 Date Initiated: 01/08/18 Time Initiated: 20:37 Assessment reference: NA altered sleep patterns Date Initiated: 01/08/18 Time Initiated: 20:39 Assessment reference: NA Treatment assets and liabiliti Patient Assests: adapts well, cooperative, self-reliant, ADL independent, good support system, negotiates basic needs, cognitively intact, strong gregory Patient Liabilities: substance abuse - Milieu Protocol Maintain good personal hygiene: every shift Encourage regular showers, every shift Remind patient to perform daily oral care, every shift Assist patient to perform ADL's Maintain personal safety: every shift Educate patient to report safety concerns to staff, every shift Monitor environment for contraband/sharps Medication safety: Monitor for expected outcome, potential side effects: every shift, Assess barriers to learning: every shift, Assess readiness for medication education: every shift Family Contact Family involvement: Family/SO is involved <Marleen Clifton - Last Filed: 01/09/18 09:35> - Diagnosis (1) Bipolar disorder Status: Acute Interventions: Medication management, Individual and group therapy, Psychoeducation 01/09/18 09:34 (2) Opioid use disorder, severe, dependence Status: Acute Interventions: Medication management, Individual and group therapy, Psychoeducation 01/09/18 09:36 (3) Benzodiazepine abuse Status: Acute Interventions: Medication management, Individual and group therapy, Psychoeducation 01/09/18 09:36 <Lois Gramajo - Last Filed: 01/10/18 11:45> Treatment Plan Problems - Problems identified on initial assessmt Hopelessness/Helplessness Date Initiated: 01/08/18 Time Initiated: 20:39 Assessment reference: NA Status: Active Priority: 1 Feelings of Worthness Time Initiated: 20:39 Assessment reference: NA Status: Active Priority: 3 altered sleep patterns Status: Active Priority: 2 Family Contact Family contact: Patient agrees to contact, Family has been contacted by patient , Telephone contact initiated by staff Family contact name: Carlo - father Family contacted how many times per week?: 2 Family contact comment: [phone] - Outside Agency [facility] Care involvment: Following patient during stay Agency contact name: Dr. Bradly MD [facility] Care involvment: Following patient during stay, Information-sharing Agency contact name: Carlo Rogers APN [facility] Care involvment: Information-sharing Agency contact name: Kelly Guzmán - immigration case worker Agency contact number: [phone] Discharge/Continuing Care - Education Needs Education Needs: Family Medication, Family Diagnosis/Disease Process, Family Coping Skills, Family Community resources, Family Activities of Daily Living, Family Personal Hygiene/Grooming, Family Aftercare Safety Plan, Patient Medication, Patient Diagnosis/Disease Process, Patient Coping Skills, Patient Community resources, Patient Activities of Daily Living, Patient Personal Hygiene/Grooming, Patient Aftercare Safety Plan - Discharge Discharge Criteria: Tolerates medication w/o severe side effects, Free of Suicidal thoughts, Normal sleep pattern, Ability to care for self, Reduction of target symptoms Discharge to:: Home, With Family - Additional Comments 01/10/18 11:40 Pt seen and discussed in team meeting. Reason for admission reviewed. Pt reported she ingested "Tylenol number 3 and Xanax trying to get high." Pt denied ingesting pills as a suicide attempt. Pt reported has bee fighting the urge of using heroin to get high. Pt reported that she had access to Xanax because of her mother. Pt reported that her mother is prescribed Xanax. Pt denied active SI an HI. Pt denied AVH. Pt denied any paranoia. Pt reported improving sleep since admission. Pt expressed feeling depressed and anxious. Pt' s social and medical issues reviewed and discussed. Pt's medications reviewed and discussed. Treatment plan reviewed and discussed. Pt reported she is agreeable to [facility] if they accept her back at the program. Pt also agreeable to continue AA Meetings in the community and [facility] [place]. Pt provided law writer with verbal authorization to contact her father, Carlo and outpatient providers. Pt reported that her elderly and ill mother will visit her during afternoon hours and wants to speak to law writer about "putting me away for a long time." SW to continue to follow case and obtain collateral information. - Treatment Team Participation Discussed with Family/SO: No Was Patient/Family/SO present at Treatment Team Meeting: Yes
[2018-01-08] MEDS: Tmp-Smz 800 mg-160 mg DS Tab PO SCH (21:33)
[2018-01-09 06:32] LABS: BASO % 0.7 % (0.0-2.0); EOS % 1.3 % (0.0-4.0); HEMOGLOBIN 12.2 g/dL (12.0-16.0); LYMPH # 1.4 K/uL (1.0-4.3); MEAN CELL VOLUME 84.1 fl (81.0-99.0); MEAN CORPUSCULAR HEMOGLOBIN 27.9 pg (27.0-31.0); MEAN CORPUSCULAR HGB CONC 33.2 g/dL (33.0-37.0); MEAN PLATELET VOLUME 9.6 fl (7.2-11.7); MONO # 0.3 K/uL (0.0-0.8); MONO % 9.4 % (0.0-10.0); NEUT # 1.8 K/uL (1.8-7.0); NEUT % 48.6 % (50.0-75.0); NRBC % 0.3 % (0.0-0.0); RBC 4.36 Mil/uL (3.80-5.20); RED CELL DISTRIBUTION WIDTH 17.2 % (11.5-14.5); WHITE BLOOD COUNT 3.6 K/uL (4.8-10.8)
[2018-01-09 06:39] LABS: LDL CHOLESTEROL 49 mg/dL (0-129)
[2018-01-09 06:47] LABS: BLOOD UREA NITROGEN 19 mg/dl (7-17); CALCIUM 8.9 mg/dL (8.4-10.2); GFR AFRICAN-AMERICAN > 60; GFR NON-AFRICAN AMERICAN 57; HDL CHOLESTEROL 29 MG/DL (30-70)
[2018-01-09] MEDS: Emtricitabine-Tenofovir 200 mg-300 mg Tab PO SCH (08:37)
[2018-01-09] MEDS: Tmp-Smz 800 mg-160 mg DS Tab PO SCH ×2 (08:37→21:10)
--- NOTE | 2018-01-09 09:36 | PCM.PSYCH ---
Initial Psychiatric Evaluation - Initial Psychiatric Evaluation Type of Admission: Voluntary Legal Status: Capacity Chief Complaint (in patient's own words): "I'm depressed." Patient's Reaction to Hospitalization: HPI: 57 yo female w/ h/o bipolar disorder, initially admitted to telemetry after impulsive OD of percocet and xanax, which she states she took because she couldn't sleep. She denies that it was a suicide attempt. She denies current suicidal ideation/plan/intent, but does report feeling depressed and feels hopeless at times. She is concerned that she will have suicidal thoughts again and has significant history of suicide attempts in the past. She reports sleep/ appetite disturbances. PPHx: Multiple past psychiatric admissions for substance abuse and bipolar disorder. On Trazodone and Seroquel. PMH: HIV, HCV, polysubstance abuse, Asthma, HTN Allergies: PCN Surgical hx: denies Social: +benzodiazepine/ prescription opiate abuse; denies current heroin/ cocaine abuse although she does have a history of both; lives w/ her parents, unemployed Current Medications: Active Medications Generic Name Dose Route Start Last Admin Trade Name Freq PRN Reason Stop Dose Admin Acetaminophen 650 mg 01/08/18 21:00 Tylenol 325mg Tab PO Q4 PRN Pain, moderate (4-7) Albuterol 2 puff 01/08/18 19:42 Ventolin Hfa 90 Mcg/Actuation (8 G) IH Q4H PRN Shortness of Breath Emtricitabine/Tenofovir 1 tab 01/09/18 09:00 01/09/18 08:37 Truvada 200 Mg-300 Mg PO 1 tab DAILY FAY Administration Protocol Gabapentin 200 mg 01/09/18 09:00 01/09/18 08:38 Neurontin PO 200 mg TID FAY Administration Lorazepam 0.5 mg 01/08/18 20:14 Ativan PO Q6 PRN Anxiety Quetiapine Fumarate 400 mg 01/08/18 22:00 01/08/18 21:34 Seroquel PO 400 mg HS FAY Administration Raltegravir 400 mg 01/09/18 09:00 01/09/18 08:37 Isentress PO 400 mg BID FAY Administration Protocol Trazodone HCl 300 mg 01/08/18 22:00 01/08/18 21:33 Desyrel PO 300 mg HS FAY Administration Trimethoprim/Sulfamethoxazole 1 tab 01/08/18 21:00 01/09/18 08:37 Bactrim Ds Tab PO 1 tab Q12 FAY Administration Protocol Zolpidem Tartrate 5 mg 01/08/18 19:42 Ambien PO HS PRN Insomnia Past Psychiatric History - Past Psychiatric History Previous Treatment History: Inpatient Pertinent Medical Hx (Current Medical&Sleep Prob, Allergies): Allergies Allergy/AdvReac Type Severity Reaction Status Date / Time Penicillins Allergy pt reports Verified 10/09/17 17:08 seizures Albuterol HFA [Ventolin HFA 90 mcg/actuation (8 g)] 2 puff IH Q4H PRN #1 inhaler 10/19/17 Gabapentin [Neurontin] 300 mg PO TID #90 cap 10/19/17 Zolpidem [Ambien] 5 mg PO HS PRN #30 tab 10/19/17 Quetiapine Fumarate [Seroquel] 400 mg PO HS #10 tablet 11/25/17 traZODone [Desyrel] 300 mg PO HS #30 tab 11/25/17 Emtricitabine/Tenofovir Diso [Truvada 200 MG-300 MG] 1 tab PO DAILY 01/06/18 Raltegravir Potassium [Isentress] 400 mg PO BID 01/06/18 Sulfamethoxazole/Trimethoprim [Sulfamethoxazole-Tmp Ss Tablet] 160 - 800 mg PO BID 01/06/18 Review of Systems - Psychiatric Psychiatric: As Per HPI, Abnormal Sleep Pattern, Anxiety, Behavioral Changes, Change in Appetite, Depression, Difficulty Concentrating, Hopelessness, Irritability, Mood Swings, Suicidal Ideation Mental Status Examination - Personal Presentation Personal Presentation: Looks older than stated age - Affect Affect: Constricted, Depressed - Motor Activity Motor Activity: Calm - Reliability in Providing Information Reliability in Providing Information: Fair - Speech Speech: Organized - Mood Mood: Depressed - Formal Thought Process Formal Thought Process: No Impairment - Hallucinations/Delusions Additional comments: Denies AH/VH/paranoia/delusions - Obsessions/Compulsions Obsessions: No Compulsions: No - Cognitive Functions Orientation: Person, Place, Situation, Time Sensorium: Alert Attention/Concentration: Attentive Estimate of Intelligence: Average Judgement: Intact, as evidence by: Insight regarding need for hospitalization Memory: Recent intact, as evidence by: Ability to recall events of the day, Remote intact, as evidenced by: Abilit to recall sig. life events, Remote intact , as evidenced by: Ability to recall historical events - Risk Risk: Diminished functioning DSM 5 DX - DSM 5 DSM 5 Diagnosis: Bipolar Disorder; Opiate Use Disorder; Benzodiazepine Use Disorder - Recommended/Plan of Treatment Treatment Recommendations and Plan of Treatment: Bipolar Disorder; Opiate Use Disorder; Benzodiazepine Use Disorder -Admit to psychiatry unit -Individual and group therapy -Continue Seroquel 400 mg PO HS -Increase Trazodone to 350 mg PO HS -Medicine consult -Psychoeducation -Disposition planning Projected ELOS: 5-10 days Discharge Plan and Discharge Criteria: Discharge when patient is psychiatrically stable - Smoking Cessation Smoking Cessation Initiated: No Reason for not providing: Patient declined
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
[2018-01-09] MEDS ORDERED: Enoxaparin 40 mg Syringe SC SCH (22:00)
[2018-01-10] MEDS: Emtricitabine-Tenofovir 200 mg-300 mg Tab PO SCH (08:29)
--- NOTE | 2018-01-10 09:13 | PCM.PYCHPN ---
Psychiatric Progress Note - Psychiatric Progress Note Patient seen today, length of contact: Patient evaluated, case discussed with team, chart reviewed Patient Chief Complaint: "I'm depressed." Problems Identified/Issues Discussed: Patient continues to report feeling depressed w/ sleep and appetite disturbances. She denies active suicidal ideation/plan/intent, but does report feeling hopeless/helpless at times. No AH/VH/paranoia/delusions. No adverse effects to medications reported. Medication Change: No Medical Record Reviewed: Yes Consults ordered or reviewed: Medicine consult Mental Status Examination - Cognitive Function Orientation: Person, Place, Situation, Time Memory: Intact Attention: WNL Concentration: WNL Association: WNL Fund of Knowledge: [facility] Decription of patient's judgement and insights: Fair I/J - Mood Mood: Depressed - Affect Affect: Constricted, Depressed - Formal Thought Process Formal Thought Process: No Impairment Psychotic Thoughts and Behaviors: No AH/VH/paranoia/delusions - Suicidal Ideation Suicidal Ideation: No - Homicidal Ideation Homicidal Ideation: No Goal/Treatment Plan - Goal/Treatment Plan Need for Continued Stay: Remain at risks for inpatient hospitalization, Severe depression anxiety, Discharge may exacerbated symptoms Progress Toward Problem(s) and Goals/Treatment Plan: Bipolar Disorder; Opiate Use Disorder; Benzodiazepine Use Disorder -Individual and group therapy -Continue Seroquel 400 mg PO HS -Continue Trazodone 350 mg PO HS -Medicine consult -Psychoeducation -Disposition planning Estimated Date of D/C: 01/15/18
[2018-01-11] MEDS: Emtricitabine-Tenofovir 200 mg-300 mg Tab PO SCH (08:09)
[2018-01-11] MEDS: Tmp-Smz 800 mg-160 mg DS Tab PO SCH ×2 (08:09→21:09)
[2018-01-11] MEDS: Enoxaparin 40 mg Syringe SC SCH (08:10)
[2018-01-11] MEDS: Albuterol HFA 90 mcg/actuation (8 g) IH PRN ×2 (08:14→17:33)
--- NOTE | 2018-01-11 18:40 | PCM.PYCHPN ---
Psychiatric Progress Note - Psychiatric Progress Note Patient seen today, length of contact: Patient evaluated, case discussed with team, chart reviewed Patient Chief Complaint: was feeling overwhelmed tried to kill my self but i really did not want to i was just sad,admits remorse about attempt. staff report pt adherent with treatment. does admit to be depressed somewhat less than upon admission Problems Identified/Issues Discussed: alteration in mood alteration in cognition alteration in self care Medical Problems: per chart being followed by family practice resident Diagnostic Results: per psychiatry per medicine per nursing per social service coordinator DSM 5 Symptoms Update: alteration in mood alteration in cognition alteration safety Medication Change: No Medical Record Reviewed: Yes Consults ordered or reviewed: pt being followed by [facility] Mental Status Examination - Cognitive Function Orientation: Person, Place, Situation, Time Memory: Intact Attention: WNL Concentration: WNL Association: WNL Fund of Knowledge: WN Decription of patient's judgement and insights: impaired - Mood Mood: Depressed - Affect Affect: Constricted, Depressed - Formal Thought Process Formal Thought Process: No Impairment - Suicidal Ideation Suicidal Ideation: No - Homicidal Ideation Homicidal Ideation: No Goal/Treatment Plan - Goal/Treatment Plan Need for Continued Stay: Remain at risks for inpatient hospitalization, Severe depression anxiety, Discharge may exacerbated symptoms Progress Toward Problem(s) and Goals/Treatment Plan: inpt milieu vital signs and clinical observation per protocol and per clinical staus decrease trazodone to 200mg po hs start remeron 7.5mg po hs review sleep hygiene adjust meds per status discharge planning in progress Estimated Date of D/C: 01/15/18 - Smoking Cessation Smoking Cessation Initiated: No
--- NOTE | 2018-01-12 08:06 | CP.PCM.PN ---
<Winnie Bai - Last Filed: 01/12/18 12:33> Subjective - Date & Time of Evaluation Date of Evaluation: 01/12/18 Time of Evaluation: 07:15 - Subjective Subjective: Patient seen and examined this morning, NAD. Patient reports improved mood. Denies any chest pain, SOB, Palpitations, dizziness, blurred vision, abdominal pain, urinary symptoms or weakness. Tolerating PO intake and ambulating. Objective - Vital Signs/Intake and Output Vital Signs (last 24 hours): Temp Pulse Resp BP Pulse Ox 97.1 F L 86 18 99/70 L 01/12/18 06:00 01/12/18 06:00 01/12/18 06:00 01/12/18 06:00 - Medications Medications: Current Medications Acetaminophen (Tylenol 325mg Tab) 650 mg PO Q4 PRN PRN Reason: Pain, moderate (4-7) Albuterol (Ventolin Hfa 90 Mcg/Actuation (8 G)) 2 puff IH Q4H PRN PRN Reason: Shortness of Breath Last Admin: 01/11/18 17:33 Dose: 2 puff Emtricitabine/Tenofovir (Truvada 200 Mg-300 Mg) 1 tab PO DAILY FAY PRN Reason: Protocol Last Admin: 01/11/18 08:09 Dose: 1 tab Enoxaparin Sodium (Lovenox) 40 mg SC DAILY FAY PRN Reason: Protocol Last Admin: 01/11/18 08:10 Dose: Not Given Gabapentin (Neurontin) 200 mg PO TID [facility] Last Admin: 01/11/18 21:10 Dose: 200 mg Lorazepam (Ativan) 0.5 mg PO Q6 PRN PRN Reason: Anxiety Last Admin: 01/11/18 15:20 Dose: 0.5 mg Mirtazapine (Remeron) 7.5 mg PO HS [facility] Last Admin: 01/11/18 21:08 Dose: 7.5 mg Quetiapine Fumarate (Seroquel) 400 mg PO HS [facility] Last Admin: 01/11/18 21:09 Dose: 400 mg Raltegravir (Isentress) 400 mg PO BID [facility]AY PRN Reason: Protocol Last Admin: 01/11/18 08:10 Dose: 400 mg Trazodone HCl (Desyrel) 200 mg PO HS [facility] Last Admin: 01/11/18 21:10 Dose: 200 mg Trimethoprim/Sulfamethoxazole (Bactrim Ds Tab) 1 tab PO Q12 FAY PRN Reason: Protocol Last Admin: 01/11/18 21:09 Dose: 1 tab Zolpidem Tartrate (Ambien) 5 mg PO HS PRN PRN Reason: Insomnia - Labs Labs: 01/09/18 05:45 01/09/18 05:45 - Constitutional Appears: No Acute Distress - Head Exam Head Exam: NORMAL INSPECTION - Eye Exam Eye Exam: Normal appearance Pupil Exam: NORMAL ACCOMODATION - ENT Exam ENT Exam: Mucous Membranes Moist - Neck Exam Neck Exam: Normal Inspection - Respiratory Exam Respiratory Exam: Clear to Ausculation Bilateral - Cardiovascular Exam Cardiovascular Exam: REGULAR RHYTHM - GI/Abdominal Exam GI & Abdominal Exam: Soft, Normal Bowel Sounds. absent: Tenderness - Back Exam Back Exam: NORMAL INSPECTION. absent: CVA tenderness (L), CVA tenderness (R) - Neurological Exam Neurological Exam: Alert, Awake, CN II-XII Intact, Oriented x3 - Psychiatric Exam Psychiatric exam: Normal Affect - Skin Skin Exam: Dry, Intact, Normal Color, Warm Assessment and Plan - Assessment and Plan (Free Text) Assessment: A/P: 57 y/o F with PMhx of HIV, depression admitted to psych for evaluation and treatment of recent suicidal attempt, s/p percocet and xanax overdose. Suicidal attempt/Overdose -Management as per psych HIV infection -Chronic -Last CD4 215 VL [id number](12/08/17) -C/W HIV meds -C/W Bactrim for PCP prophylaxis Acetaminophen overdose -Resolved -S/p N-acetylcysteine treatment protocol -Stable LFTs, < 10 acetami level Asthma -Mild intermittent -Albuterol PRN DVT prophylaxis -Ambulatory and Lovenox 40mg SC daily <Jenni Boyle - Last Filed: 01/12/18 13:06> Objective - Vital Signs/Intake and Output Vital Signs (last 24 hours): Temp Pulse Resp BP Pulse Ox 97.1 F L 86 18 99/70 L 01/12/18 06:00 01/12/18 06:00 01/12/18 06:00 01/12/18 06:00 - Medications Medications: Current Medications Acetaminophen (Tylenol 325mg Tab) 650 mg PO Q4 PRN PRN Reason: Pain, moderate (4-7) Albuterol (Ventolin Hfa 90 Mcg/Actuation (8 G)) 2 puff IH Q4H PRN PRN Reason: Shortness of Breath Last Admin: 01/11/18 17:33 Dose: 2 puff Emtricitabine/Tenofovir (Truvada 200 Mg-300 Mg) 1 tab PO DAILY FAY PRN Reason: Protocol Last Admin: 01/12/18 08:24 Dose: 1 tab Enoxaparin Sodium (Lovenox) 40 mg SC DAILY FAY PRN Reason: Protocol Last Admin: 01/12/18 08:24 Dose: Not Given Gabapentin (Neurontin) 200 mg PO TID [facility] Last Admin: 01/12/18 12:32 Dose: 200 mg Lorazepam (Ativan) 0.5 mg PO Q6 PRN PRN Reason: Anxiety Last Admin: 01/11/18 15:20 Dose: 0.5 mg Mirtazapine (Remeron) 7.5 mg PO HS [facility] Last Admin: 01/11/18 21:08 Dose: 7.5 mg Quetiapine Fumarate (Seroquel) 400 mg PO HS [facility] Last Admin: 01/11/18 21:09 Dose: 400 mg Raltegravir (Isentress) 400 mg PO BID [facility] PRN Reason: Protocol Last Admin: 01/12/18 08:23 Dose: 400 mg Trazodone HCl (Desyrel) 200 mg PO HS [facility] Last Admin: 01/11/18 21:10 Dose: 200 mg Trimethoprim/Sulfamethoxazole (Bactrim Ds Tab) 1 tab PO Q12 FAY PRN Reason: Protocol Last Admin: 01/12/18 08:23 Dose: 1 tab Zolpidem Tartrate (Ambien) 5 mg PO HS PRN PRN Reason: Insomnia - Labs Labs: 01/09/18 05:45 01/09/18 05:45 Attending/Attestation - Attestation I have personally seen and examined this patient.: Yes I have fully participated in the care of the patient.: Yes I have reviewed all pertinent clinical information, including history, physical exam and plan: Yes
[2018-01-12] MEDS: Tmp-Smz 800 mg-160 mg DS Tab PO SCH ×2 (08:23→21:03)
[2018-01-12] MEDS: Emtricitabine-Tenofovir 200 mg-300 mg Tab PO SCH (08:24)
[2018-01-12] MEDS: Enoxaparin 40 mg Syringe SC SCH (08:24)
[2018-01-12] MEDS: Albuterol HFA 90 mcg/actuation (8 g) IH PRN (15:44)
[2018-01-12] MEDS ORDERED: Albuterol-Ipratrop 3 mg / 0.5 (3 ml) UD INH PRN (18:09)
--- NOTE | 2018-01-12 18:14 | PCM.PYCHPN ---
Psychiatric Progress Note - Psychiatric Progress Note Patient seen today, length of contact: Patient evaluated, case discussed with team, chart reviewed Patient Chief Complaint: seen seated in milieu, reports doing fairly well, sleep fair, staff report pt slept 4-6 hours, appetite good, staff report pt is adherent with treatment, denies side effects of remeron Problems Identified/Issues Discussed: alteration in mood alteration in cognition alteration in self care Medical Problems: per chart being followed by [facility] resident Diagnostic Results: per psychiatry per medicine per nursing per social service agency director DSM 5 Symptoms Update: some improvement mood i Medication Change: No Medical Record Reviewed: Yes Consults ordered or reviewed: pt being followed by [facility] Mental Status Examination - Cognitive Function Orientation: Person, Place, Situation, Time Memory: Intact Attention: WNL Concentration: WNL Association: WNL Fund of Knowledge: WN Decription of patient's judgement and insights: impaired - Mood Mood: Depressed - Affect Affect: Constricted, Depressed - Formal Thought Process Formal Thought Process: No Impairment - Suicidal Ideation Suicidal Ideation: No - Homicidal Ideation Homicidal Ideation: No Goal/Treatment Plan - Goal/Treatment Plan Need for Continued Stay: Remain at risks for inpatient hospitalization, Severe depression anxiety, Discharge may exacerbated symptoms Progress Toward Problem(s) and Goals/Treatment Plan: inpt milieu vital signs and clinical observation per protocol and per clinical staus review sleep hygiene adjust meds per status discharge planning in progress Estimated Date of D/C: 01/15/18 - Smoking Cessation Smoking Cessation Initiated: No Reason for not providing: defers
[2018-01-13 08:23] LABS: BASO % 1.2 % (0.0-2.0); EOS % 1.3 % (0.0-4.0); HEMOGLOBIN 12.7 g/dL (12.0-16.0); LYMPH # 1.1 K/uL (1.0-4.3); MEAN CELL VOLUME 85.6 fl (81.0-99.0); MEAN CORPUSCULAR HEMOGLOBIN 27.9 pg (27.0-31.0); MEAN CORPUSCULAR HGB CONC 32.6 g/dL (33.0-37.0); MEAN PLATELET VOLUME 9.9 fl (7.2-11.7); MONO # 0.3 K/uL (0.0-0.8); MONO % 8.1 % (0.0-10.0); NEUT # 1.8 K/uL (1.8-7.0); NEUT % 54.4 % (50.0-75.0); RBC 4.56 Mil/uL (3.80-5.20); RED CELL DISTRIBUTION WIDTH 17.3 % (11.5-14.5); WHITE BLOOD COUNT 3.3 K/uL (4.8-10.8)
[2018-01-13] MEDS: Emtricitabine-Tenofovir 200 mg-300 mg Tab PO SCH (08:34)
[2018-01-13] MEDS: Enoxaparin 40 mg Syringe SC SCH (08:36)
[2018-01-13 08:39] LABS: ALB/GLOB RATIO 0.9 (1.0-2.1); ALBUMIN 3.9 g/dL (3.5-5.0); ALT/SGPT 34 U/L (9-52); AST/SGOT 39 U/L (14-36); BLOOD UREA NITROGEN 19 mg/dl (7-17); CALCIUM 9.1 mg/dL (8.4-10.2); GFR AFRICAN-AMERICAN > 60; GFR NON-AFRICAN AMERICAN 51
--- NOTE | 2018-01-13 12:54 | CARD ---
APPROVED REPORT EKG Measurement Heart [id number] <Conclusion> Normal sinus rhythm Normal ECG
--- NOTE | 2018-01-13 13:03 | PCM.PYCHPN ---
Psychiatric Progress Note - Psychiatric Progress Note Patient seen today, length of contact: Patient evaluated, case discussed with team, chart reviewed Patient Chief Complaint: pt seen and evaluated and pt is less depressed and denies suicidal ideation .pt was admitted because of overdose on pills .nonside effects. Medication Change: No Medical Record Reviewed: Yes Mental Status Examination - Cognitive Function Orientation: Person, Place, Situation, Time Memory: Intact Attention: WNL Concentration: WNL Association: WNL Fund of Knowledge: WNL - Mood Mood: Depressed - Affect Affect: Constricted, Depressed - Formal Thought Process Formal Thought Process: No Impairment - Suicidal Ideation Suicidal Ideation: No - Homicidal Ideation Homicidal Ideation: No Goal/Treatment Plan - Goal/Treatment Plan Need for Continued Stay: Remain at risks for inpatient hospitalization, Severe depression anxiety, Discharge may exacerbated symptoms Progress Toward Problem(s) and Goals/Treatment Plan: will continue to stabilize pt with meds and theraoy. Disposition as per dr chopra. Estimated Date of D/C: 01/15/18
[2018-01-13] MEDS: Albuterol HFA 90 mcg/actuation (8 g) IH PRN (16:35)
[2018-01-14] MEDS: Enoxaparin 40 mg Syringe SC SCH (09:10)
[2018-01-14] MEDS: Emtricitabine-Tenofovir 200 mg-300 mg Tab PO SCH (09:11)
[2018-01-14] MEDS: Albuterol HFA 90 mcg/actuation (8 g) IH PRN (09:16)
--- NOTE | 2018-01-14 11:47 | PCM.PYCHPN ---
Psychiatric Progress Note - Psychiatric Progress Note Patient seen today, length of contact: Patient evaluated, case discussed with team, chart reviewed Patient Chief Complaint: pt is seen and evaluated and pt is still anxious and depressed and minimises her depression. pt denies suicidal ideation.pt is tolerating meds well and no side effects reported. Medication Change: No Medical Record Reviewed: Yes Mental Status Examination - Cognitive Function Orientation: Person, Place, Situation, Time Memory: Intact Attention: WNL Concentration: WNL Association: WNL Fund of Knowledge: WNL - Mood Mood: Depressed - Affect Affect: Constricted, Depressed - Formal Thought Process Formal Thought Process: No Impairment - Suicidal Ideation Suicidal Ideation: No - Homicidal Ideation Homicidal Ideation: No Goal/Treatment Plan - Goal/Treatment Plan Need for Continued Stay: Remain at risks for inpatient hospitalization, Severe depression anxiety, Discharge may exacerbated symptoms Progress Toward Problem(s) and Goals/Treatment Plan: will continue to stabilize mood with seroquel and remeron Disposition plans as per dr chopra. Estimated Date of D/C: 01/15/18
--- NOTE | 2018-01-15 10:02 | PCM.PYCHPN ---
Psychiatric Progress Note - Psychiatric Progress Note Patient seen today, length of contact: Patient evaluated, case discussed with team, chart reviewed Patient Chief Complaint: "I'm depressed." Problems Identified/Issues Discussed: Patient continues to report feeling intermittently depressed. Yesterday she had an ideation to harm herself, but was able to distract her self and did not make any attempt to harm herself. Coagulation Operator discussed coping strategies with the patient. No AH/VH/paranoia/delusions. No adverse effects to medications reported. Medication Change: No Medical Record Reviewed: Yes Consults ordered or reviewed: Medicine consult Mental Status Examination - Cognitive Function Orientation: Person, Place, Situation, Time Memory: Intact Attention: WNL Concentration: WNL Association: WNL Fund of Knowledge: [facility] Decription of patient's judgement and insights: Improving I/J - Mood Mood: Depressed - Affect Affect: Constricted - Speech Speech: Appropriate - Formal Thought Process Formal Thought Process: No Impairment Psychotic Thoughts and Behaviors: No AH/VH/paranoia/delusions - Suicidal Ideation Suicidal Ideation: No - Homicidal Ideation Homicidal Ideation: No Goal/Treatment Plan - Goal/Treatment Plan Need for Continued Stay: Remain at risks for inpatient hospitalization, Severe depression anxiety, Discharge may exacerbated symptoms Progress Toward Problem(s) and Goals/Treatment Plan: Bipolar Disorder; Opiate Use Disorder; Benzodiazepine Use Disorder -Individual and group therapy -Continue Seroquel 400 mg PO HS -Continue Trazodone 200 mg PO HS -Continue Remeron 7.5 mg PO HS -Medicine consult -Psychoeducation -Disposition planning Estimated Date of D/C: 01/17/18
[2018-01-15] MEDS: Emtricitabine-Tenofovir 200 mg-300 mg Tab PO SCH (17:02)
[2018-01-16] MEDS: Emtricitabine-Tenofovir 200 mg-300 mg Tab PO SCH (08:43)
--- NOTE | 2018-01-16 10:17 | PCM.PYCHPN ---
Psychiatric Progress Note - Psychiatric Progress Note Patient seen today, length of contact: Patient evaluated, case discussed with team, chart reviewed Patient Chief Complaint: "I'm depressed." Problems Identified/Issues Discussed: Patient reports that she continues to feel depressed and feels hopeless at times. She denies acute ideation to harm self or others. We continued to discuss coping strategies to deal with depression and stress. No AH/VH/paranoia /delusions. No adverse effects to medications reported. Medication Change: Yes (Increase Remeron to 15 mg PO HS) Medical Record Reviewed: Yes Consults ordered or reviewed: Medicine consult Mental Status Examination - Cognitive Function Orientation: Person, Place, Situation, Time Memory: Intact Attention: WNL Concentration: WNL Association: WNL Fund of Knowledge: [facility] Decription of patient's judgement and insights: Improving I/J - Mood Mood: Depressed - Affect Affect: Constricted, Depressed - Speech Speech: Appropriate - Formal Thought Process Formal Thought Process: No Impairment Psychotic Thoughts and Behaviors: No AH/VH/paranoia/delusions - Suicidal Ideation Suicidal Ideation: No - Homicidal Ideation Homicidal Ideation: No Goal/Treatment Plan - Goal/Treatment Plan Need for Continued Stay: Remain at risks for inpatient hospitalization, Severe depression anxiety, Discharge may exacerbated symptoms Progress Toward Problem(s) and Goals/Treatment Plan: Bipolar Disorder; Opiate Use Disorder; Benzodiazepine Use Disorder -Individual and group therapy -Continue Seroquel 400 mg PO HS -Continue Trazodone 200 mg PO HS -Increase Remeron to 15 mg PO HS -Medicine consult -Psychoeducation -Disposition planning Estimated Date of D/C: 01/18/18
[2018-01-16] MEDS: Albuterol HFA 90 mcg/actuation (8 g) IH PRN ×2 (17:50→20:11)
--- NOTE | 2018-01-16 19:37 | CP.PCM.PCO ---
Physician Communication Note - Physician Communication Note Physician Communication Note: I was called by nurse due to cough, and chest congestion. Progress Note - Review of Symptoms Events since last encounter: 57 y/o F with h/o Asthma, and Bipolar disorder seen and examined at bedside in Psych unit. Patient is complaining of productive cough, and chest tightness since today. Reports cough is associated with yellowish phlegm production, and is feeling a little bit SOB. Denies chills, wheezing, night sweats, chest pain or other associated symptoms. Has been afebrile on admission. PE: patient is awake, alert, oriented x 3, and no toxic CV: RRR, normal S1, S2 respiratory: CTA bilateral , no rales, wheezing, or rhonchi abd: soft, non distended, non tender to palpation ext: no edema Plan: -Promote hydration. Nursing communication. -Start Xopenex sharan Q8hr for now -chest physiotherapy TID -mucinex PO Q12h -Benzonatate PO TID PRN for cough -CBC -if symptoms persist or fevers will do a CXR -re-evaluation of clinical status
[2018-01-16] MEDS: Levalbuterol 0.63 MG/3 ML Inhal Soln UD INH SCH ×2 (19:45→23:29)
[2018-01-16] MEDS ORDERED: Albuterol-Ipratrop 3 mg / 0.5 (3 ml) UD INH SCH (20:00)
[2018-01-16] MEDS: guaiFENesin 600 mg ER Tab PO SCH (21:04)
--- NOTE | 2018-01-17 07:11 | PCM.PYCHPN ---
Psychiatric Progress Note - Psychiatric Progress Note Patient seen today, length of contact: Patient evaluated, case discussed with team, chart reviewed Patient Chief Complaint: "I'm getting better." Problems Identified/Issues Discussed: Patient reports that her mood is improving. She feels less depressed. She is more hopeful for the future. No ideation to harm self. We discussed the importance of abstinence from substance abuse. No AH/VH/paranoia/delusions. No adverse effects to medications reported. Medication Change: No Medical Record Reviewed: Yes Consults ordered or reviewed: Medicine consult Mental Status Examination - Cognitive Function Orientation: Person, Place, Situation, Time Memory: Intact Attention: WNL Concentration: WNL Association: WNL Fund of Knowledge: [facility] Decription of patient's judgement and insights: Good I/J - Mood Mood: Depressed - Affect Affect: Constricted - Speech Speech: Appropriate - Formal Thought Process Formal Thought Process: No Impairment Psychotic Thoughts and Behaviors: No AH/VH/paranoia/delusions - Suicidal Ideation Suicidal Ideation: No - Homicidal Ideation Homicidal Ideation: No Goal/Treatment Plan - Goal/Treatment Plan Need for Continued Stay: Severe depression anxiety, Discharge may exacerbated symptoms Progress Toward Problem(s) and Goals/Treatment Plan: Bipolar Disorder; Opiate Use Disorder; Benzodiazepine Use Disorder; patient is improving clinically, will likely discharge back to home tomorrow w/ outpatient follow-up -Individual and group therapy -Continue Seroquel 400 mg PO HS -Continue Trazodone 200 mg PO HS -Continue Remeron 15 mg PO HS -Medicine consult -Psychoeducation -Disposition planning Estimated Date of D/C: 01/18/18
[2018-01-17] MEDS: guaiFENesin 600 mg ER Tab PO SCH ×2 (08:04→21:04)
[2018-01-17] MEDS: Emtricitabine-Tenofovir 200 mg-300 mg Tab PO SCH (08:15)
[2018-01-17] MEDS: Levalbuterol 0.63 MG/3 ML Inhal Soln UD INH SCH ×2 (08:31→15:42)
[2018-01-17 16:06] VITALS: RESP 20
[2018-01-18] MEDS: Levalbuterol 0.63 MG/3 ML Inhal Soln UD INH SCH (00:30)
[2018-01-18 06:04] VITALS: BP 105/57; PULSE 83; TEMP 97.1
--- NOTE | 2018-01-18 08:17 | PCM.PYCHDC ---
Mental Status Examination - Mental Status Examination Orientation: Person, Place, Situation, Time Memory: Intact Mood: Neutral Affect: Broad Speech: Appropriate Attention: WNL Concentration: WNL Association: WNL Fund of Knowledge: WNL Formal Thought Process: No Impairment Description of patient's judgement and insight: Good I/J Psychotic Thoughts and Behaviors: No AH/VH/paranoia/delusions Suicidal Ideation: No Current Homicidal Ideation?: No Discharge Summary - Discharge Note Reason for Hospitalization: HPI: 57 yo female w/ h/o bipolar disorder, initially admitted to telemetry after impulsive OD of percocet and xanax, which she states she took because she couldn't sleep. She denies that it was a suicide attempt. She denies current suicidal ideation/plan/intent, but does report feeling depressed and feels hopeless at times. She is concerned that she will have suicidal thoughts again and has significant history of suicide attempts in the past. She reports sleep/ appetite disturbances. PPHx: Multiple past psychiatric admissions for substance abuse and bipolar disorder. On Trazodone and Seroquel. PMH: HIV, HCV, polysubstance abuse, Asthma, HTN Allergies: PCN Surgical hx: denies Social: +benzodiazepine/ prescription opiate abuse; denies current heroin/ cocaine abuse although she does have a history of both; lives w/ her parents, unemployed Consultations:: List each consultation separately and include: 1. Reason for request. 2. Findings. 3. Follow-up Consultations: Medicine consult Summary of Hospital Course include:: 1. Description of specific treatment plan utilized for patients during their course of treatmen. 2. Summarize the time- course for resolution of acute symptoms and/or regressed behaviors. 3. Describe issues identified and worked on during hospitalization. 4. Describe medication utilized. 5. Describe medical problems identified and treated. 6. Reassessment of suicide risk Summary of Hospital Course: Patient was admitted to the psychiatry unit. Individual and group therapy were provided. Patient was stabilized on Seroquel 400 mg PO HS, Trazodone 200 mg PO HS and Remeron 15 mg PO HS. She reports that her mood has improved and denies acute depression/anxiety/AH/VH/SI/HI. Psychoeducation provided on the dangers of substance abuse. Patient is psychiatrically stable for discharge at this time with outpatient follow-up. - Diagnosis (1) Bipolar disorder Current Visit: No Status: Chronic (2) Opioid use disorder, severe, dependence Current Visit: No Status: Chronic (3) Benzodiazepine abuse Current Visit: Yes Status: Chronic - Final Diagnosis (DSM 5) Condition upon Discharge: GOOD DSM 5: Bipolar Disorder; Opiate Use Disorder; Benzodiazepine Use Disorde Disposition: HOME/ ROUTINE Follow-up Treatment Plan: Bipolar Disorder; Opiate Use Disorder; Benzodiazepine Use Disorder -Individual and group therapy -Continue Seroquel 400 mg PO HS -Continue Trazodone 200 mg PO HS -Continue Remeron 15 mg PO HS -Medicine consult -Psychoeducation Prescriptions/Medication Reconciliation: Emtricitabine/Tenofovir Diso [Truvada 200 MG-300 MG] 1 tab PO DAILY #30 tab Mirtazapine [Remeron] 15 mg PO HS #30 tab Quetiapine Fumarate [Seroquel] 400 mg PO HS #30 tablet traZODone [Desyrel] 200 mg PO HS #60 tab - Smoking Cessation Smoking Cessation Medication prescribed: No Reason for not providing: Patient declined - Antipsychotic Medications Pt discharged on 2 or more routine antipsychotic medications: No
[2018-01-18] MEDS: guaiFENesin 600 mg ER Tab PO SCH (08:35)
[2018-01-18] MEDS: Emtricitabine-Tenofovir 200 mg-300 mg Tab PO SCH (08:37)
--- NOTE | 2018-01-18 10:53 | PCM.BM ---
Treatment Plan Problems - Problems identified on initial assessmt Problem 1 Date Initiated: 01/08/18 Time Initiated: 20:37 Assessment reference: NA Problem 2 Date Initiated: 01/08/18 Time Initiated: 20:37 Assessment reference: NA altered sleep patterns Date Initiated: 01/08/18 Time Initiated: 20:39 Assessment reference: NA Status: Active Priority: 2 Hopelessness/Helplessness Date Initiated: 01/08/18 Time Initiated: 20:39 Assessment reference: NA Status: Active Priority: 1 Feelings of Worthness Time Initiated: 20:39 Assessment reference: NA Status: Active Priority: 3 Treatment assets and liabiliti Patient Assests: adapts well, cooperative, self-reliant, ADL independent, good support system, negotiates basic needs, cognitively intact, strong penelope Patient Liabilities: substance abuse - Milieu Protocol Maintain good personal hygiene: every shift Encourage regular showers, every shift Remind patient to perform daily oral care, every shift Assist patient to perform ADL's Maintain personal safety: every shift Educate patient to report safety concerns to staff, every shift Monitor environment for contraband/sharps Medication safety: Monitor for expected outcome, potential side effects: every shift, Assess barriers to learning: every shift, Assess readiness for medication education: every shift Milieu Narrative: Bipolar Disorder; Opiate Use Disorder; Benzodiazepine Use Disorder -Individual and group therapy -Continue Seroquel 400 mg PO HS -Continue Trazodone 200 mg PO HS -Continue Remeron 15 mg PO HS -Medicine consult -Psychoeducation Family Contact Family involvement: Family/SO is involved Family contact: Patient agrees to contact, Patient declines to allow family contact at present, Telephone contact initiated by staff Family contact name: Carlo - father - Outside Agency [facility] Care involvment: Information-sharing Agency contact name: Dr. Bradly MD [facility] Care involvment: Information-sharing Agency contact name: aCrlo Rogers [facility] Care involvment: Information-sharing Agency contact name: Kelly Guzmán - disease case manageronline education manager contact number: [phone] Discharge/Continuing Care - Education Needs Education Needs: Family Medication, Family Diagnosis/Disease Process, Family Coping Skills, Family Community resources, Family Activities of Daily Living, Family Personal Hygiene/Grooming, Family Aftercare Safety Plan, Patient Medication, Patient Diagnosis/Disease Process, Patient Coping Skills, Patient Community resources, Patient Activities of Daily Living, Patient Personal Hygiene/Grooming, Patient Aftercare Safety Plan - Discharge Discharge Criteria: Tolerates medication w/o severe side effects, Free of Suicidal thoughts, Normal sleep pattern, Ability to care for self, Reduction of target symptoms Discharge to:: Home, With Family - Additional Comments 01/10/18 11:40 Pt seen and discussed in team meeting. Reason for admission reviewed. Pt reported she ingested "Tylenol number 3 and Xanax trying to get high." Pt denied ingesting pills as a suicide attempt. Pt reported has bee fighting the urge of using heroin to get high. Pt reported that she had access to Xanax because of her mother. Pt reported that her mother is prescribed Xanax. Pt denied active SI an HI. Pt denied AVH. Pt denied any paranoia. Pt reported improving sleep since admission. Pt expressed feeling depressed and anxious. Pt' s social and medical issues reviewed and discussed. Pt's medications reviewed and discussed. Treatment plan reviewed and discussed. Pt reported she is agreeable to [facility] if they accept her back at the program. Pt also agreeable to continue AA Meetings in the community and [facility]. Pt provided automobile service writer with verbal authorization to contact her father, Carlo and outpatient providers. Pt reported that her elderly and ill mother will visit her during afternoon hours and wants to speak to automobile service writer about "putting me away for a long time." SW to continue to follow case and obtain collateral information. - Treatment Team Participation Patient/Family/SO Statement: Bipolar Disorder; Opiate Use Disorder; Benzodiazepine Use Disorder -Individual and group therapy -Continue Seroquel 400 mg PO HS -Continue Trazodone 200 mg PO HS -Continue Remeron 15 mg PO HS -Medicine consult -Psychoeducation Discussed with Family/SO: No Was Patient/Family/SO present at Treatment Team Meeting: Yes Treatment Plan Review Patient participation: Yes Family/SO/Caregiver participation: No Additional Comments: Pt seen and discussed in team meeting. Pt's progress and bx on the unit reviewed and discussed. Pt reported feeling "good." Pt reported less sleep disturbances. Pt denied active SI and HI. Pt denied AVH. Pt denied any paranoia. Pt aware of scheduled discharge for this afternoon. Pt in agreement. After care referrals reviewed and discussed with pt, pt verbalized understanding of same. - Problem Problem 1 Time Initiated: 20:37 Problem 2 Time Initiated: 20:37 altered sleep patterns Date Initiated: 01/08/18 Time Initiated: 20:39 Progress toward outcomes: improved Hopelessness/Helplessness Date Initiated: 01/08/18 Time Initiated: 20:39 Progress toward outcomes: improved Feelings of Worthness Date Initiated: 01/08/18 Time Initiated: 20:39 Progress toward outcomes: improved - Discharge / Continuing Care Discharge to:: Home, With Family Behavioral Health Services: Intensive Outpatient (Substance Abuse IOP at [facility]) Health Needs: Follow up care/test, Doctor appointments, Medications/Rx, Educational, Recreational/Social, Alcohol/Drug treatment
== END 2018-01-18 12:35 | disposition home or self-care (01) | DRG 885 ==
LOC: H.STEP 18:19
PROVIDERS: ADMIT Psychiatry & Neurology Psychiatry; ATTEND Psychiatry & Neurology Psychiatry
PROC: GZHZZZZ Group Psychotherapy (ICD-10-PCS; principal; 2018-01-08)
PROC: GZ58ZZZ Individual Psychotherapy, Cognitive-Behavioral (ICD-10-PCS; 2018-01-08)
DX: F31.9 Bipolar disorder, unspecified (principal); F11.288 Opioid dependence with other opioid-induced disorder; B20 Human immunodeficiency virus [HIV] disease; F17.210 Nicotine dependence, cigarettes, uncomplicated; F13.10 Sedative, hypnotic or anxiolytic abuse, uncomplicated; I10 Essential (primary) hypertension; J45.20 Mild intermittent asthma, uncomplicated; E78.00 Pure hypercholesterolemia, unspecified; Z91.5 Personal history of self-harm; Z79.899 Other long term (current) drug therapy; Z88.0 Allergy status to penicillin

== ENCOUNTER 2018-01-20 15:36 | Emergency (ER) | payer MEDICARE, MEDICAID ==
[2018-01-20 15:36] VITALS: BMI 23.3
[2018-01-20 15:48] VITALS: TEMP 97.9
--- NOTE | 2018-01-20 15:59 | ED PDOC ---
HPI: General Adult Time Seen by Provider: 01/20/18 15:59 Chief Complaint (Nursing): Cough, Cold, Congestion Chief Complaint (Provider): cough History Per: Patient Additional Complaint(s): 58-year-old female with history of asthma and COPD presents with cough productive of yellow and green sputum and wheezing 3 days. No fever or chills. Patient denies recent travel. She states that albuterol pump inhaler is not helping her current symptoms. PMD: [facility] Past Medical History Reviewed: Historical Data, Nursing Documentation, Vital Signs Vital Signs: Last Vital Signs Temp 97.9 F 01/20/18 15:45 Pulse 93 H 01/20/18 15:45 Resp 18 01/20/18 15:45 BP Pulse Ox 96 01/20/18 15:59 - Medical History PMH: Anemia, Anxiety, Asthma, Bipolar Disorder, Bronchitis, COPD, Depression, HIV, HTN, Hypercholesterolemia, Mitral Valve Prolapse, Paranoia, Personality Disorder, Seizures (withdrawal induced) - Surgical History Surgical History: Tonsillectomy - Family History Family History: States: No Known Family Hx - Living Arrangements Living Arrangements: With Family - Social History Ex-Smoker (has not smoked in the last 12 months): Yes (2-3 cigarettes per day) Alcohol: None Drugs: Opiates - Home Medications Home Medications: Ambulatory Orders Medication Instructions Recorded Albuterol HFA [Ventolin HFA 90 2 puff IH Q4H PRN #1 inhaler 10/19/17 mcg/actuation (8 g)] Gabapentin [Neurontin] 300 mg PO TID #90 cap 10/19/17 Raltegravir Potassium [Isentress] 400 mg PO BID 01/06/18 Sulfamethoxazole/Trimethoprim 160 - 800 mg PO BID 01/06/18 [Sulfamethoxazole-Tmp Ss Tablet] Emtricitabine/Tenofovir Diso 1 tab PO DAILY #30 tab 01/18/18 [Truvada 200 MG-300 MG] Mirtazapine [Remeron] 15 mg PO HS #30 tab 01/18/18 Quetiapine Fumarate [Seroquel] 400 mg PO HS #30 tablet 01/18/18 traZODone [Desyrel] 200 mg PO HS #60 tab 01/18/18 Albuterol HFA [Ventolin HFA 90 1 puff IH ASDIR #1 unit 01/20/18 mcg/actuation (8 g)] Azithromycin [Zithromax] 250 mg PO DAILY #6 tab 01/20/18 Benzonatate 200 mg PO TID PRN #20 capsule 01/20/18 Prednisone 50 mg PO DAILY #5 tablet 01/20/18 - Allergies Allergies/Adverse Reactions: Allergies Allergy/AdvReac Type Severity Reaction Status Date / Time Penicillins Allergy pt reports Verified 10/09/17 17:08 seizures Review of Systems ROS Statement: Except As Marked, All Systems Reviewed And Found Negative Constitutional: Negative for: Fever, Chills Cardiovascular: Negative for: Chest Pain Respiratory: Positive for: Cough, Shortness of Breath, Sputum (yellow and green) , Wheezing Physical Exam - Reviewed Nursing Documentation Reviewed: Yes Vital Signs Reviewed: Yes - Physical Exam Appears: Positive for: Well, Non-toxic, No Acute Distress Skin: Positive for: Normal Color. Negative for: Rash Eye Exam: Positive for: Normal appearance Cardiovascular/Chest: Positive for: Regular Rate, Rhythm Respiratory: Positive for: Wheezing. Negative for: Accessory Muscle Use, Crackles, Rales, Rhonchi, Respiratory Distress Gastrointestinal/Abdominal: Positive for: Soft. Negative for: Tenderness, Distended, Guarding, Rebound Back: Negative for: L CVA Tenderness, R CVA Tenderness Extremity: Positive for: Normal ROM Neurologic/Psych: Positive for: Alert, Oriented - ECG Interpretation Of ECG: Normal sinus rhythm at 93 beats per minute, no acute finding, reviewed by PA and ED attending. O2 Sat by Pulse Oximetry: 96 Pulse Ox Interpretation: Normal - Other Rad CXR X-Ray: Interpreted by Me, Viewed By Me X-Ray Interpretation: no acute finding Nebulizer Treatments/Peak Flow - Duonebs Number of Bronchodilator Doses given?: 2 (duoneb) - Pre/Post Peak Flow Pre Treatment Peak Flow: 200 Post treatment Peak Flow: 250 - Steroid Treatment Steroid: IV (IM solumedrol) - Clinical Response Clinical Response: Improved Medical Decision Making Medical Decision Makin58 year old with URI symptoms Plan: CXR IM solumedrol Douneb x 2 EKG Patient reports improvement after meds given in ED. Patient is aware of diagnostic testing results, all questions answered. Prescriptions given for Ventolin inhaler, Tessalon Perles, prednisone and Zithromax. Patient was advised to follow-up with clinic in 2-3 days. Smoking cessation instructions provided. Disposition - Clinical Impression Clinical Impression: Asthma, Upper respiratory infection - Patient ED Disposition Is Patient to be Admitted: No Counseled Patient/Family Regarding: Studies Performed, Diagnosis, Need For Followup, Rx Given, Smoking Cessation - Disposition Referrals: [facility] [Outside] Disposition: Routine/Home Disposition Time: 17:23 Condition: IMPROVED Additional Instructions: Take prescription meds as directed. Follow-up with clinic in 2-3 days. Prescriptions: Albuterol HFA [Ventolin HFA 90 mcg/actuation (8 g)] 1 puff IH ASDIR #1 unit Azithromycin [Zithromax] 250 mg PO DAILY #6 tab Benzonatate 200 mg PO TID PRN #20 capsule PRN Reason: Cough Prednisone 50 mg PO DAILY #5 tablet Instructions: Asthma in Adults, Bacterial Upper Respiratory Infection, Adult ( DC), Quitting Smoking Forms: [facility] (Danish)
[2018-01-20] MEDS ORDERED: Albuterol-Ipratrop 3 mg / 0.5 (3 ml) UD INH STA (16:16)
--- NOTE | 2018-01-20 16:53 | RAD ---
HISTORY: cough COMPARISON: Chest radiograph dated 10/09/2017. TECHNIQUE: Chest PA and lateral FINDINGS: LUNGS: No active pulmonary disease. PLEURA: No significant pleural effusion identified. No pneumothorax apparent. CARDIOVASCULAR: Normal. OSSEOUS STRUCTURES: Unchanged. VISUALIZED UPPER ABDOMEN: Normal. OTHER FINDINGS: None. IMPRESSION: No active disease.
[2018-01-20 17:43] VITALS: BP 135/80; PULSE 75; RESP 16
[2018-01-20 17:45] VITALS: O2SAT 96
== END 2018-01-20 17:45 | disposition home or self-care (01) ==
LOC: H.ER 15:36
DX: J06.9 Acute upper respiratory infection, unspecified (principal); J45.909 Unspecified asthma, uncomplicated; Z86.59 Personal history of other mental and behavioral disorders; I10 Essential (primary) hypertension; Z87.891 Personal history of nicotine dependence; Z88.0 Allergy status to penicillin; E78.00 Pure hypercholesterolemia, unspecified
CPT/HCPCS: 71046; 96372; 99282; J2930

== ENCOUNTER 2018-05-23 09:39 | Inpatient (IN) | payer MEDICARE, MEDICAID ==
--- NOTE | 2018-05-23 11:18 | ED PDOC ---
HPI: Psych/Substance Abuse Time Seen by Provider: 05/23/18 10:28 Chief Complaint (Nursing): Psychiatric Evaluation Chief Complaint (Provider): Psych Evaluation History Per: Patient, EMS History/Exam Limitations: no limitations Additional Complaint(s): Patient is a 58 year old female who presents to ED via [facility] from the clinic for psychiatric evaluation. Patient reports that she has been feeling depressed for months, worsening this week after an incident with her parents at home. Patient states she has been having suicidal thoughts, with the intent to overdose on heroin. Patient reports she is a former heroin abuser, and claims to have last used 4 months ago. Patient denies any physical complaints. Denies HI, A/V hallucinations. PMD: Melissa. LMP: 30 years ago per patient Past Medical History Reviewed: Historical Data, Nursing Documentation, Vital Signs Vital Signs: Last Vital Signs Temp 98.5 F 05/23/18 09:42 Pulse 109 H 05/23/18 09:42 Resp 20 05/23/18 09:42 BP 142/93 H 05/23/18 09:42 Pulse Ox 98 05/23/18 09:46 - Medical History PMH: Anemia, Anxiety, Asthma, Bipolar Disorder, Bronchitis, COPD, Depression, HIV, HTN, Hypercholesterolemia, Mitral Valve Prolapse, Paranoia, Personality Disorder, Seizures (withdrawal induced) Other PMH: Neuropathy, Chronic Pain - Surgical History Surgical History: Tonsillectomy - Family History Family History: States: Unknown Family Hx - Social History Drugs: Opiates - Immunization History Hx Tetanus Toxoid Vaccination: Yes (10/2017) - Home Medications Home Medications: Ambulatory Orders Medication Instructions Recorded Emtricitabine/Tenofovir Diso 1 tab PO DAILY 05/23/18 [Truvada 200 MG-300 MG] Gabapentin [Neurontin] 300 mg PO Q8 05/23/18 Mirtazapine [Remeron] 15 mg PO HS 05/23/18 QUEtiapine [SEROquel] 200 mg PO HS 05/23/18 Raltegravir Potassium [Isentress] 400 mg PO Q12 05/23/18 Sulfamethoxazole/Trimethoprim 1 tab PO DAILY 05/23/18 [Bactrim DS Tab] traZODone [Desyrel] 100 mg PO HS 05/23/18 - Allergies Allergies/Adverse Reactions: Allergies Allergy/AdvReac Type Severity Reaction Status Date / Time Penicillins Allergy pt reports Verified 05/23/18 09:46 seizures Review of Systems ROS Statement: Except As Marked, All Systems Reviewed And Found Negative Psych: Positive for: Depression, Suicidal ideation Physical Exam - Reviewed Nursing Documentation Reviewed: Yes Vital Signs Reviewed: Yes - Physical Exam Appears: Positive for: Well, Non-toxic, No Acute Distress Head Exam: Positive for: ATRAUMATIC, NORMOCEPHALIC Skin: Positive for: Normal Color, Warm, Dry Eye Exam: Positive for: EOMI, PERRL ENT: Positive for: Other (Airway patent, (-) stridor. Mucus membranes moist.) Neck: Positive for: Painless ROM, Supple Cardiovascular/Chest: Positive for: Regular Rate, Rhythm Respiratory: Positive for: Normal Breath Sounds Gastrointestinal/Abdominal: Positive for: Soft. Negative for: Tenderness, Distended, Guarding Neurologic/Psych: Positive for: Alert, Oriented (x3), Mood/Affect (flat), Gait (steady in ED). Negative for: Aphasia, Facial Droop - Laboratory Results Result Diagrams: 05/23/18 13:30 05/23/18 13:30 - ECG O2 Sat by Pulse Oximetry: 98 (RA) Pulse Ox Interpretation: Normal Medical Decision Making Medical Decision Makin Initial Impression: Psychiatric Evaluation Plan: -Crisis evaluation -1:1 observation -Re-evaluation -Utox 1235 CXR, EKG, U/A, CBC, CMP ordered. Per crisis evaluation, patient to be admitted for depression per Dr Clifton. 1400 EKG: NSR @ 93bpm (-) ST elevation, QTc 447 1420 CXR reviewed, radiology report follows Date of service: 05/23/2018 HISTORY: psych clearance COMPARISON: Comparison chest 01/20/2018. FINDINGS: LUNGS: Mild bibasilar atelectasis and/or scarring changes left greater than right PLEURA: No significant pleural effusion identified, no pneumothorax apparent. CARDIOVASCULAR: No aortic atherosclerotic calcification present. Normal cardiac size. No pulmonary vascular congestion. OSSEOUS STRUCTURES: Old healed fracture deformity of midshaft left clavicle again noted. VISUALIZED UPPER ABDOMEN: Normal. OTHER FINDINGS: None. IMPRESSION: Mild bibasilar atelectasis and/or scarring changes left greater than right. 1425 Serum alcohol < 10 Utox: negative CBC and CMP WNL. U/A (+) UTI. U/C and Macrobid 100mg PO ordered. Patient is medically stable for psychiatric admission. Arrangements made for admission. 1550 Repeat HR: 90 Repeat BP: 129/84 Disposition - Clinical Impression Clinical Impression: Depression, UTI (urinary tract infection) - Patient ED Disposition Is Patient to be Admitted: Yes Counseled Patient/Family Regarding: Studies Performed, Diagnosis - Disposition Disposition Time: 14:30 Condition: STABLE - Pt Status Changed To: Hospital Disposition Of: Inpatient - Admit Certification Admit to Inpatient:: After my assessment, the patient will require hospitaliza tion for at least two midnights. This is because of the severity of symptoms shown, intensity of services needed, and/or the medical risk in this patient being treated as an outpatient. - POA Present On Arrival: None Results - Lab Results Lab Results: 05/23/18 05/23/18 05/23/18 13:30 13:30 13:30 WBC 4.1 L RBC 5.01 Hgb 13.9 Hct 43.0 MCV 85.8 MCH 27.8 MCHC 32.4 L RDW 15.1 H Plt Count 151 MPV 9.3 Neut % (Auto) 60.1 Lymph % (Auto) 30.0 [place] % (Auto) 7.7 Eos % (Auto) 1.5 Baso % (Auto) 0.7 Neut # (Auto) 2.5 Lymph # (Auto) 1.2 [place] # (Auto) 0.3 Eos # (Auto) 0.1 Baso # (Auto) 0.0 Sodium 142 Potassium 4.1 Chloride 111 H Carbon Dioxide 23 Anion Gap 12 BUN 23 H Creatinine 0.8 Est GFR ( Amer) > 60 Est GFR (Non-Af Amer) > 60 Random Glucose 114 H Calcium 9.1 Total Bilirubin 0.4 AST 37 H D ALT 26 Alkaline Phosphatase 79 Total Protein 8.9 H Albumin 4.1 Globulin 4.8 H Albumin/Globulin Ratio 0.8 L Urine Color Yellow Urine Clarity Slighty-cloudy Urine pH 6.0 Ur Specific [place] 1.021 Urine Protein Negative Urine Glucose (UA) Neg Urine Ketones Negative Urine Blood Negative Urine Nitrate Negative Urine Bilirubin Negative Urine Urobilinogen 1.0 Ur Leukocyte Esterase Mod Urine RBC (Auto) 1 Urine Microscopic WBC 14 H Ur Squamous Epith Cells 1 Urine Bacteria Rare Urine Opiates Screen Urine Methadone Screen Ur Barbiturates Screen Ur Phencyclidine Scrn Ur Amphetamines Screen U Benzodiazepines Scrn U Oth Cocaine Metabols U Cannabinoids Screen Alcohol, Quantitative < 10 05/23/18 12:25 WBC RBC Hgb Hct MCV MCH MCHC RDW Plt Count MPV Neut % (Auto) Lymph % (Auto) [place] % (Auto) Eos % (Auto) Baso % (Auto) Neut # (Auto) Lymph # (Auto) [place] # (Auto) Eos # (Auto) Baso # (Auto) Sodium Potassium Chloride Carbon Dioxide Anion Gap BUN Creatinine Est GFR ( Amer) Est GFR (Non-Af Amer) Random Glucose Calcium Total Bilirubin AST ALT Alkaline Phosphatase Total Protein Albumin Globulin Albumin/Globulin Ratio Urine Color Urine Clarity Urine pH Ur Specific [place] Urine Protein Urine Glucose (UA) Urine Ketones Urine Blood Urine Nitrate Urine Bilirubin Urine Urobilinogen Ur Leukocyte Esterase Urine RBC (Auto) Urine Microscopic WBC Ur Squamous Epith Cells Urine Bacteria Urine Opiates Screen Negative Urine Methadone Screen Negative Ur Barbiturates Screen Negative Ur Phencyclidine Scrn Negative Ur Amphetamines Screen Negative U Benzodiazepines Scrn Negative U Oth Cocaine Metabols Negative U Cannabinoids Screen Negative Alcohol, Quantitative
[2018-05-23 13:18] LABS: BENZODIAZEPINES, UR NEGATIVE (NEGATIVE)
[2018-05-23 13:19] LABS: BARBITURATES, UR NEGATIVE (NEGATIVE); OPIATES, UR NEGATIVE (NEGATIVE); PHENCYCLIDINE, UR NEGATIVE (NEGATIVE)
--- NOTE | 2018-05-23 13:23 | RAD ---
Date of service: 05/23/2018 HISTORY: psych clearance COMPARISON: Comparison chest 01/20/2018. FINDINGS: LUNGS: Mild bibasilar atelectasis and/or scarring changes left greater than right PLEURA: No significant pleural effusion identified, no pneumothorax apparent. CARDIOVASCULAR: No aortic atherosclerotic calcification present. Normal cardiac size. No pulmonary vascular congestion. OSSEOUS STRUCTURES: Old healed fracture deformity of midshaft left clavicle again noted. VISUALIZED UPPER ABDOMEN: Normal. OTHER FINDINGS: None. IMPRESSION: Mild bibasilar atelectasis and/or scarring changes left greater than right
[2018-05-23 13:58] LABS: BASO % 0.7 % (0.0-2.0); EOS # 0.1 K/uL (0.0-0.7); EOS % 1.5 % (0.0-4.0); HEMOGLOBIN 13.9 g/dL (12.0-16.0); LYMPH # 1.2 K/uL (1.0-4.3); MEAN CELL VOLUME 85.8 fl (81.0-99.0); MEAN CORPUSCULAR HEMOGLOBIN 27.8 pg (27.0-31.0); MEAN CORPUSCULAR HGB CONC 32.4 g/dL (33.0-37.0); MEAN PLATELET VOLUME 9.3 fl (7.2-11.7); MONO # 0.3 K/uL (0.0-0.8); MONO % 7.7 % (0.0-10.0); NEUT # 2.5 K/uL (1.8-7.0); NEUT % 60.1 % (50.0-75.0); NRBC % 0.1 % (0.0-0.0); RBC 5.01 Mil/uL (3.80-5.20); RED CELL DISTRIBUTION WIDTH 15.1 % (11.5-14.5); WHITE BLOOD COUNT 4.1 K/uL (4.8-10.8)
[2018-05-23] MEDS ORDERED: Magnesium Hydroxide Susp 30 ml UD PO PRN (14:05)
[2018-05-23] MEDS ORDERED: DiphenhydrAMINE 50 mg/ml Inj IM PRN (14:05)
[2018-05-23] MEDS ORDERED: Alum-Mag Hydrox-Simethicone Susp (30 mL) PO PRN (14:05)
[2018-05-23 14:06] LABS: SQUAMOUS EPITHIAL 1 /hpf (0-5); URINE BACTERIA RARE (<OCC); URINE BILIRUBIN NEGATIVE (NEGATIVE); URINE BLOOD NEGATIVE (NEGATIVE); URINE CLARITY SLIGHTY-CLOUDY (Clear); URINE COLOR YELLOW (YELLOW); URINE GLUCOSE (UA) NEG (Normal); URINE LEUKOCYTE ESTERASE MOD Leu/uL (Negative); URINE PROTEIN NEGATIVE (NEGATIVE)
[2018-05-23 14:16] LABS: ALB/GLOB RATIO 0.8 (1.0-2.1); ALBUMIN 4.1 g/dL (3.5-5.0); ALT/SGPT 26 U/L (9-52); AST/SGOT 37 U/L (14-36); BLOOD UREA NITROGEN 23 mg/dl (7-17); CALCIUM 9.1 mg/dL (8.4-10.2); GFR NON-AFRICAN AMERICAN > 60
[2018-05-23 15:48] VITALS: O2SAT 98
[2018-05-23 18:07] VITALS: BMI 25.7
--- NOTE | 2018-05-23 18:20 | PCM.BM ---
<Zaira Beavers - Last Filed: 05/23/18 18:18> Treatment Plan Problems - Problems identified on initial assessmt Suicidal ideation Date Initiated: 05/23/18 Time Initiated: 18:18 Assessment reference: HP, NA Status: Active Hoplessness/Helplessness Date Initiated: 05/23/18 Time Initiated: 18:22 Assessment reference: HP, NA Status: Active Altered Sleep Patterns Date Initiated: 05/23/18 Time Initiated: 18:25 Assessment reference: NA Status: Active Treatment assets and liabiliti Patient Assests: adapts well, cooperative, self-reliant, ADL independent, good support system, negotiates basic needs, cognitively intact, strong gregory Patient Liabilities: medical problems - Milieu Protocol Maintain good personal hygiene: daily Encourage regular showers, daily Remind patient to perform daily oral care, daily Assist patient to perform ADL's Conduct patient checks and document Observation sheet: Q15 minutes Maintain personal safety: every shift Educate patient to report safety concerns to staff, every shift Monitor environment for contraband/sharps Medication safety: Monitor for expected outcome, potential side effects: every shift, Assess barriers to learning: every shift, Assess readiness for medication education: every shift <Marleen Clifton - Last Filed: 05/24/18 09:14> - Diagnosis (1) Bipolar disease, chronic Status: Acute Interventions: Medication management, Individual and group therapy, Psychoeducation 05/24/18 09:15 <Cassius Cole - Last Filed: 05/25/18 15:59> Family Contact Family involvement: Family/SO is involved Family contact: Patient agrees to contact, Family has been contacted by patient, Telephone contact initiated by staff Family contact name: Carlo - Father Family contacted how many times per week?: 2 Family contact comment: Fur Matcher called pt's home in an attempt to speak to pt's father, Carlo, regarding her treatment and progress on the unit. However, pt's father was not home and pt's mother answered. Pt refused to allow mortgage underwriter to speak to her mother. Pt's mother will give pt's father the message. Fur Matcher will attempt to call again on 05/26/19. [phone]. - Outside Agency [facility] Care involvment: Information-sharing Agency contact name: Dr. Bradly MD and Carlo Rogers APN Agency contact number: [phone] - Goals for Treatment Patient goals for treatment: Pt reported she would like to be restabilized on her medication and her mood to be lifted. Discharge/Continuing Care - Education Needs Education Needs: Patient Medication, Patient Diagnosis/Disease Process, Patient Coping Skills, Patient Placement options, Patient Community resources, Patient Aftercare Safety Plan - Discharge Discharge Criteria: Tolerates medication w/o severe side effects, Free of Suicidal thoughts, Free of paranoid thoughts, Free of agitation, Normal sleep pattern, Ability to care for self, Reduction of target symptoms Discharge to:: Home, With Family - Treatment Team Participation Patient/Family/SO Statement: 05/25/18 15:04 Pt seen in treatment team on 05/25/18. Pt reported she only got 3 hours of sleep and reported that this is an improvement. Pt complained that her mother met with her on 05/24 and called her a disappointment and an addict, but pt has been sober since September and feels that her effort is not appreciated or acknowledged. Dr. Clifton reported that pt is currently at 300mg and she was up to 400mg last time she was admitted. Discussed with Family/SO: Yes Was Patient/Family/SO present at Treatment Team Meeting: Yes
--- NOTE | 2018-05-23 20:27 | CARD ---
APPROVED REPORT Date of service: 05/23/2018 EKG Measurement Heart [id number] <Conclusion> Normal sinus rhythm Normal ECG
[2018-05-24 06:53] LABS: BASO % 1.1 % (0.0-2.0); EOS # 0.1 K/uL (0.0-0.7); EOS % 2.6 % (0.0-4.0); HEMOGLOBIN 13.7 g/dL (12.0-16.0); LYMPH # 1.1 K/uL (1.0-4.3); LYMPH % 35.9 % (20.0-40.0); MEAN CELL VOLUME 84.2 fl (81.0-99.0); MEAN CORPUSCULAR HEMOGLOBIN 27.7 pg (27.0-31.0); MEAN PLATELET VOLUME 9.4 fl (7.2-11.7); MONO # 0.3 K/uL (0.0-0.8); MONO % 9.2 % (0.0-10.0); NEUT # 1.6 K/uL (1.8-7.0); NEUT % 51.2 % (50.0-75.0); RBC 4.95 Mil/uL (3.80-5.20); RED CELL DISTRIBUTION WIDTH 14.7 % (11.5-14.5); WHITE BLOOD COUNT 3.2 K/uL (4.8-10.8)
[2018-05-24 07:10] LABS: LDL CHOLESTEROL 92 mg/dL (0-129)
[2018-05-24 07:16] LABS: T4 7.65 ug/dl (5.5-11.0)
[2018-05-24 07:32] LABS: ALB/GLOB RATIO 0.9 (1.0-2.1); ALBUMIN 4.3 g/dL (3.5-5.0); ALT/SGPT 27 U/L (9-52); AST/SGOT 46 U/L (14-36); BLOOD UREA NITROGEN 24 mg/dl (7-17); CALCIUM 9.3 mg/dL (8.4-10.2); GFR NON-AFRICAN AMERICAN > 60; HDL CHOLESTEROL 47 MG/DL (30-70)
--- NOTE | 2018-05-24 09:22 | PCM.PSYCH ---
Initial Psychiatric Evaluation - Initial Psychiatric Evaluation Type of Admission: Voluntary Legal Status: Capacity Chief Complaint (in patient's own words): "I wanted to kill myself." Patient's Reaction to Hospitalization: HPI: 58 yo female w/ h/o bipolar disorder, presents w/ worsening depression, sleep/appetite disturbances and suicidal ideation with plan to overdose on drugs. She reports that she feels stressed due to chronic pain and also due to conflict with her family, including being upset that they accused her of stealing money from them. +Feels hopeless/helpless. No AH/VH/paranoia/delusions/HI. PPHx: Multiple past psychiatric admissions for substance abuse and bipolar disorder and history of prior suicide attempts. Currently on Seroquel, Trazodone and Remeron. PMH: HIV, HCV, polysubstance abuse, Asthma, HTN Allergies: PCN Surgical hx: denies Social: History of benzo, opioid/cocaine abuse, currently in remission; lives w/ parents; unemployed. Smokes 2-3 cig/day, declined smoking cessation. Current Medications: Active Medications Generic Name Dose Route Start Last Admin Trade Name Freq PRN Reason Stop Dose Admin Acetaminophen 650 mg 05/23/18 14:05 Tylenol 325mg Tab PO Q4 PRN Pain, moderate (4-7) Al Hydrox/Mg Hydrox/Simethicone 30 ml 05/23/18 14:05 Maalox Plus 30 Ml PO Q4 PRN Dyspepsia Diphenhydramine HCl 50 mg 05/23/18 14:05 Benadryl IM Q6 PRN Extrapyramidal S/S Unable PO Diphenhydramine HCl 50 mg 05/23/18 14:05 Benadryl PO Q6 PRN Extrapyramidal Symptoms Duloxetine HCl 20 mg 05/24/18 09:00 Cymbalta PO BID FAY Emtricitabine/Tenofovir 1 tab 05/24/18 09:00 Truvada 200 Mg-300 Mg PO DAILY FAY Protocol Gabapentin 300 mg 05/24/18 09:00 05/24/18 08:38 Neurontin PO 300 mg TID FAY Administration Haloperidol 5 mg 05/23/18 14:05 Haldol PO Q4 PRN Agitation Haloperidol Lactate 5 mg 05/23/18 14:05 Haldol IM Q4 PRN Agitation, Unable to Take PO Lorazepam 2 mg 05/23/18 14:05 Ativan IM Q4 PRN Anxiety/Agitation,Unable PO Lorazepam 1 mg 05/23/18 14:09 Ativan PO Q8 PRN Anxiety Magnesium Hydroxide 30 ml 05/23/18 14:05 Milk Of Magnesia PO HS PRN Constipation Quetiapine Fumarate 300 mg 05/24/18 22:00 Seroquel PO [facility] Raltegravir 400 mg 05/24/18 09:00 Isentress PO Q12 [facility] Protocol Trazodone HCl 100 mg 05/23/18 22:00 05/23/18 21:13 Desyrel PO 100 mg HS [facility] Administration Past Psychiatric History - Past Psychiatric History Previous Treatment History: Inpatient Pertinent Medical Hx (Current Medical&Sleep Prob, Allergies): Allergies Allergy/AdvReac Type Severity Reaction Status Date / Time Penicillins Allergy pt reports Verified 05/23/18 09:46 seizures Emtricitabine/Tenofovir Diso [Truvada 200 MG-300 MG] 1 tab PO DAILY 05/23/18 Gabapentin [Neurontin] 300 mg PO Q8 05/23/18 Mirtazapine [Remeron] 15 mg PO HS 05/23/18 QUEtiapine [SEROquel] 200 mg PO HS 05/23/18 Raltegravir Potassium [Isentress] 400 mg PO Q12 05/23/18 Sulfamethoxazole/Trimethoprim [Bactrim DS Tab] 1 tab PO DAILY 05/23/18 traZODone [Desyrel] 100 mg PO HS 05/23/18 Review of Systems - Psychiatric Psychiatric: As Per HPI, Abnormal Sleep Pattern, Anhedonia, Behavioral Changes, Change in Appetite, Depression, Difficulty Concentrating, Hopelessness, Suicidal Ideation Mental Status Examination - Personal Presentation Personal Presentation: Looks older than stated age - Affect Affect: Constricted, Depressed - Motor Activity Motor Activity: Calm - Reliability in Providing Information Reliability in Providing Information: Fair - Speech Speech: Organized, Coherent - Mood Mood: Depressed, Anxious - Formal Thought Process Formal Thought Process: No Impairment - Hallucinations/Delusions Additional comments: No AH/VH/paranoia/delusions - Obsessions/Compulsions Obsessions: No Compulsions: No - Cognitive Functions Orientation: Person, Place, Situation, Time Sensorium: Alert Estimate of Intelligence: Average Judgement: Intact, as evidence by: Insight regarding need for hospitalization Memory: Recent intact, as evidence by: Ability to recall events of the day, Remote intact, as evidenced by: Abilit to recall sig. life events, Remote intact, as evidenced by: Ability to recall historical events - Risk Risk: Suicidal, Diminished functioning - Strength & Assets Inventory Strength & Assets Inventory: Family support, Cooperative DSM 5 DX - DSM 5 DSM 5 Diagnosis: Bipolar Disorder - Recommended/Plan of Treatment Treatment Recommendations and Plan of Treatment: Bipolar Disorder -Admit to psychiatry unit -Individual and group therapy -Increase Seroquel -Continue Trazodone -Hold Remeron and start Cymbalta, due to its additional benefit of pain management -Medicine consult -Disposition planning Projected ELOS: 5-10 days Discharge Plan and Discharge Criteria: Discharge when patient is psychiatrically stable - Smoking Cessation Smoking Cessation Initiated: No Reason for not providing: Patient declined
[2018-05-24] MEDS: Albuterol-Ipratrop 3 mg / 0.5 (3 ml) UD INH PRN ×2 (10:32→18:08)
[2018-05-24] MEDS: Emtricitabine-Tenofovir 200 mg-300 mg Tab PO SCH (13:58)
--- NOTE | 2018-05-24 18:26 | CP.PCM.CON ---
History of Present Illness - History of Present Illness History of Present Illness: 58 yo female with history of HTN, COPD, HIV and Peripheral Neuropathy admitted to psyche unit because of suicidal ideation. Review of Systems - Review of Systems All systems: reviewed and no additional remarkable complaints except (aside from those mentioned above, 12 point system review were negative by me) Past Patient History - Infectious Disease Hx of Infectious Diseases: None - Past Medical History & Family History Past Medical History?: Yes - Past Social History Smoking Status: Light Smoker < 10 Cigarettes Daily Chewing Tobacco Use: No Cigar Use: No Alcohol: None Drugs: Opiates (denied taking Heroin for about 8 months now) - CARDIAC Hx Cardiac Disorders: Yes Hx Hypercholesterolemia: Yes Hx Hypertension: Yes - PULMONARY Hx Respiratory Disorders: Yes Hx Asthma: Yes Hx Bronchitis: Yes Hx Chronic Obstructive Pulmonary Disease (COPD): Yes - NEUROLOGICAL Hx Neurological Disorder: Yes Hx Seizures: Yes (withdrawal induced) - HEENT Hx HEENT Problems: No Other/Comment: uses reading glasses - RENAL Hx Chronic Kidney Disease: No - ENDOCRINE/METABOLIC Hx Endocrine Disorders: No - HEMATOLOGICAL/ONCOLOGICAL Hx Blood Disorders: Yes Hx Anemia: Yes Hx Human Immunodeficiency Virus (HIV): Yes - INTEGUMENTARY Hx Dermatological Problems: Yes Other/Comment: scratches on back healing - MUSCULOSKELETAL/RHEUMATOLOGICAL Hx Musculoskeletal Disorders: No Hx Falls: No - GASTROINTESTINAL Hx Gastrointestinal Disorders: No - GENITOURINARY/GYNECOLOGICAL Hx Genitourinary Disorders: Yes Hx Sexually Transmitted Disorders: No (Patient denied) Hx Urinary Tract Infection: Yes - PSYCHIATRIC Hx Anxiety: Yes Hx Depression: Yes Hx Substance Use: Yes (history of od on Heroin) - SURGICAL HISTORY Hx Surgeries: Yes Hx Tonsillectomy: Yes - ANESTHESIA Hx Anesthesia: Yes Hx Anesthesia Reactions: No Hx Malignant Hyperthermia: No Meds Allergies/Adverse Reactions: Allergies Allergy/AdvReac Type Severity Reaction Status Date / Time Penicillins Allergy pt reports Verified 05/23/18 09:46 seizures - Medications Medications: Current Medications Acetaminophen (Tylenol 325mg Tab) 650 mg PO Q4 PRN PRN Reason: Pain, moderate (4-7) Al Hydrox/Mg Hydrox/Simethicone (Maalox Plus 30 Ml) 30 ml PO Q4 PRN PRN Reason: Dyspepsia Albuterol/Ipratropium (Duoneb 3 Mg/0.5 Mg (3 Ml) Ud) 3 ml INH RQ4 PRN PRN Reason: Shortness of Breath Last Admin: 05/24/18 18:08 Dose: 3 ml Diphenhydramine HCl (Benadryl) 50 mg IM Q6 PRN PRN Reason: Extrapyramidal S/S Unable PO Diphenhydramine HCl (Benadryl) 50 mg PO Q6 PRN PRN Reason: Extrapyramidal Symptoms Duloxetine HCl (Cymbalta) 20 mg PO BID [facility] Last Admin: 05/24/18 17:32 Dose: 20 mg Emtricitabine/Tenofovir (Truvada 200 Mg-300 Mg) 1 tab PO DAILY [facility]; Protocol Last Admin: 05/24/18 13:58 Dose: 1 tab Gabapentin (Neurontin) 300 mg PO TID [facility] Last Admin: 05/24/18 17:31 Dose: 300 mg Haloperidol (Haldol) 5 mg PO Q4 PRN PRN Reason: Agitation Haloperidol Lactate (Haldol) 5 mg IM Q4 PRN PRN Reason: Agitation, Unable to Take PO Lorazepam (Ativan) 2 mg IM Q4 PRN PRN Reason: Anxiety/Agitation,Unable PO Lorazepam (Ativan) 1 mg PO Q8 PRN PRN Reason: Anxiety Last Admin: 05/24/18 14:01 Dose: 1 mg Magnesium Hydroxide (Milk Of Magnesia) 30 ml PO HS PRN PRN Reason: Constipation Quetiapine Fumarate (Seroquel) 300 mg PO HS [facility] Raltegravir (Isentress) 400 mg PO Q12 [facility]; Protocol Last Admin: 05/24/18 13:57 Dose: 400 mg Trazodone HCl (Desyrel) 100 mg PO HS [facility] Last Admin: 05/23/18 21:13 Dose: 100 mg Physical Exam - Constitutional Appears: No Acute Distress - Head Exam Head Exam: ATRAUMATIC - Eye Exam Eye Exam: absent: Scleral icterus - ENT Exam ENT Exam: Mucous Membranes Moist - Neck Exam Neck exam: Negative for: Meningismus - Respiratory Exam Respiratory Exam: absent: Rales, Rhonchi, Wheezes, Respiratory Distress - Cardiovascular Exam Cardiovascular Exam: REGULAR RHYTHM, +S1, +S2 - GI/Abdominal Exam GI & Abdominal Exam: Soft. absent: Tenderness - Rectal Exam Rectal Exam: Deferred - Neurological Exam Neurological exam: Alert, Oriented x3 - Psychiatric Exam Psychiatric exam: Normal Affect - Skin Skin Exam: Dry, Intact Results - Vital Signs Recent Vital Signs: Last Vital Signs Temp 97.8 F 05/24/18 16:06 Pulse 93 H 05/24/18 16:06 Resp 20 05/24/18 16:06 BP 116/76 05/24/18 16:06 Pulse Ox 98 05/23/18 17:56 - Labs Result Diagrams: 05/24/18 06:40 05/24/18 06:40 Labs: Laboratory Results - last 24 hr 05/24/18 05/24/18 05/24/18 06:40 06:40 06:40 WBC 3.2 L RBC 4.95 Hgb 13.7 Hct 41.6 MCV 84.2 MCH 27.7 MCHC 33.0 RDW 14.7 H Plt Count 136 MPV 9.4 Neut % (Auto) 51.2 Lymph % (Auto) 35.9 [place] % (Auto) 9.2 Eos % (Auto) 2.6 Baso % (Auto) 1.1 Neut # (Auto) 1.6 L Lymph # (Auto) 1.1 [place] # (Auto) 0.3 Eos # (Auto) 0.1 Baso # (Auto) 0.0 Sodium 141 Potassium 4.6 Chloride 111 H Carbon Dioxide 24 Anion Gap 11 BUN 24 H Creatinine 0.9 Est GFR ( Amer) > 60 Est GFR (Non-Af Amer) > 60 Random Glucose 99 Hemoglobin A1c 5.4 Calcium 9.3 Total Bilirubin 0.4 AST 46 H D ALT 27 Alkaline Phosphatase 81 Total Protein 9.2 H Albumin 4.3 Globulin 4.9 H Albumin/Globulin Ratio 0.9 L Triglycerides 67 Cholesterol 170 LDL Cholesterol Direct 92 HDL Cholesterol 47 25-OH Vitamin D Total Thyroxine (T4) 7.65 TSH 3rd Generation 1.44 RPR 05/24/18 05/24/18 06:40 06:40 WBC RBC Hgb Hct MCV MCH MCHC RDW Plt Count MPV Neut % (Auto) Lymph % (Auto) [place] % (Auto) Eos % (Auto) Baso % (Auto) Neut # (Auto) Lymph # (Auto) [place] # (Auto) Eos # (Auto) Baso # (Auto) Sodium Potassium Chloride Carbon Dioxide Anion Gap BUN Creatinine Est GFR ( Amer) Est GFR (Non-Af Amer) Random Glucose Hemoglobin A1c Calcium Total Bilirubin AST ALT Alkaline Phosphatase Total Protein Albumin Globulin Albumin/Globulin Ratio Triglycerides Cholesterol LDL Cholesterol Direct HDL Cholesterol 25-OH Vitamin D Total 20.3 L Thyroxine (T4) TSH 3rd Generation RPR Nonreactive Assessment & Plan (1) Suicidal ideation Status: Acute Priority: High Comment: psyche is managing
[2018-05-25] MEDS: Emtricitabine-Tenofovir 200 mg-300 mg Tab PO SCH (08:56)
--- NOTE | 2018-05-25 09:12 | PCM.PYCHPN ---
Psychiatric Progress Note - Psychiatric Progress Note Patient seen today, length of contact: Pt evaluated, case discussed w/ team, chart reviewed Patient Chief Complaint: "I wanted to kill myself." Problems Identified/Issues Discussed: Pt continues to report feeling depressed w/ intermittent SI w/o current plan/intent. She reports that her mother makes very negative comments to her, which make her feel even more depressed and hopeless. She denies acute AH/VH. She reports that she had improved sleep overnight. No adverse effects to medications reported. Medication Change: No Medical Record Reviewed: Yes Consults ordered or reviewed: Medicine consult Mental Status Examination - Cognitive Function Orientation: Person, Place, Situation, Time Memory: Intact Attention: WNL Concentration: WNL Association: WNL Fund of Knowledge: [facility] Decription of patient's judgement and insights: Improving I/J - Mood Mood: Depressed, Anxious - Affect Affect: Constricted, Depressed - Speech Speech: Appropriate - Formal Thought Process Formal Thought Process: No Impairment Psychotic Thoughts and Behaviors: Denies AH/VH - Suicidal Ideation Suicidal Ideation: Yes Plan: No current plan/intent - Homicidal Ideation Homicidal Ideation: No Goal/Treatment Plan - Goal/Treatment Plan Need for Continued Stay: Remain at risks for inpatient hospitalization, Severe depression anxiety, Discharge may exacerbated symptoms Progress Toward Problem(s) and Goals/Treatment Plan: Bipolar Disorder -Individual and group therapy -Continue current medications -Medicine consult -Disposition planning Estimated Date of D/C: 05/30/18
[2018-05-25] MEDS: Albuterol-Ipratrop 3 mg / 0.5 (3 ml) UD INH PRN (15:35)
[2018-05-26] MEDS: Albuterol-Ipratrop 3 mg / 0.5 (3 ml) UD INH PRN ×2 (08:28→19:26)
[2018-05-26] MEDS: Emtricitabine-Tenofovir 200 mg-300 mg Tab PO SCH (08:52)
--- NOTE | 2018-05-26 13:58 | PCM.PYCHPN ---
Psychiatric Progress Note - Psychiatric Progress Note Patient seen today, length of contact: Pt evaluated, case discussed w/ team, chart reviewed Patient Chief Complaint: was feeling sad, no hope related to overall health, has HIV being followed by family practice, seen in social area, contracts for safety, staff report pt adherent with treament Problems Identified/Issues Discussed: alteration in mood, coping Medical Problems: per chart Diagnostic Results: per psychiatry per medicine per director social welfare per recreational therapy DSM 5 Symptoms Update: minimal improvement reported contracts for safety parents reported as leverage Medication Change: No Medical Record Reviewed: Yes Consults ordered or reviewed: pt being followed by hospitalist Mental Status Examination - Cognitive Function Orientation: Person, Place, Situation, Time Memory: Intact Attention: WNL Concentration: WNL Association: WNL Fund of Knowledge: WNL - Mood Mood: Depressed, Anxious - Affect Affect: Constricted, Depressed - Speech Speech: Appropriate - Formal Thought Process Formal Thought Process: No Impairment - Suicidal Ideation Suicidal Ideation: Yes - Homicidal Ideation Homicidal Ideation: No Goal/Treatment Plan - Goal/Treatment Plan Need for Continued Stay: Remain at risks for inpatient hospitalization, Severe depression anxiety, Discharge may exacerbated symptoms Estimated Date of D/C: 05/30/18
[2018-05-27] MEDS: Emtricitabine-Tenofovir 200 mg-300 mg Tab PO SCH (08:45)
--- NOTE | 2018-05-27 10:02 | PCM.PYCHPN ---
Psychiatric Progress Note - Psychiatric Progress Note Patient seen today, length of contact: Pt evaluated, case discussed w/ team, chart reviewed Patient Chief Complaint: I need help with my joint pain Problems Identified/Issues Discussed: pt evaluated seen in the hallway, reported feeling anxious because of the joint pain, pt reported has history of opiate use, has been abstinent since last september but has high tolerance, feeling less depressed, no reported side effects , denied current S/H I denied perceptual disturbances DSM 5 Symptoms Update: bipolar disorder opiate dependence in full early remission Medication Change: No Medical Record Reviewed: Yes Mental Status Examination - Cognitive Function Orientation: Person, Place, Situation, Time Memory: Intact Attention: WNL Concentration: WNL Association: WNL Fund of Knowledge: WNL - Mood Mood: Depressed, Anxious - Affect Affect: Constricted, Depressed - Speech Speech: Appropriate - Formal Thought Process Formal Thought Process: No Impairment - Suicidal Ideation Suicidal Ideation: No - Homicidal Ideation Homicidal Ideation: No Goal/Treatment Plan - Goal/Treatment Plan Need for Continued Stay: Remain at risks for inpatient hospitalization, Severe depression anxiety, Discharge may exacerbated symptoms Progress Toward Problem(s) and Goals/Treatment Plan: continue current management pain management consult Estimated Date of D/C: 05/30/18
[2018-05-27] MEDS: Albuterol-Ipratrop 3 mg / 0.5 (3 ml) UD INH PRN (11:30)
--- NOTE | 2018-05-28 09:00 | PCM.PYCHPN ---
Psychiatric Progress Note - Psychiatric Progress Note Patient seen today, length of contact: Pt evaluated, case discussed w/ team, chart reviewed Patient Chief Complaint: "I wanted to kill myself." Problems Identified/Issues Discussed: Pt continues to report feeling depressed w/ feelings of hopelessness and poor sleep. She denies acute AH/VH/SI/HI. We discussed continued titration of Seroquel. No adverse effects to medications reported. Medication Change: Yes (Increase Seroquel) Medical Record Reviewed: Yes Consults ordered or reviewed: Medicine consult Mental Status Examination - Cognitive Function Orientation: Person, Place, Situation, Time Memory: Intact Attention: WNL Concentration: WNL Association: WNL Fund of Knowledge: WN Decription of patient's judgement and insights: Improving I/J - Mood Mood: Depressed, Anxious - Affect Affect: Constricted, Depressed - Speech Speech: Appropriate - Formal Thought Process Formal Thought Process: No Impairment Psychotic Thoughts and Behaviors: Denies AH/VH/paranoia/delusions - Suicidal Ideation Suicidal Ideation: No - Homicidal Ideation Homicidal Ideation: No Goal/Treatment Plan - Goal/Treatment Plan Need for Continued Stay: Remain at risks for inpatient hospitalization, Severe depression anxiety, Discharge may exacerbated symptoms Progress Toward Problem(s) and Goals/Treatment Plan: Bipolar Disorder -Individual and group therapy -Increase Seroquel -Continue Cymbalta and Trazodone -Medicine consult -Disposition planning Estimated Date of D/C: 05/31/18
[2018-05-28] MEDS: Emtricitabine-Tenofovir 200 mg-300 mg Tab PO SCH (09:04)
--- NOTE | 2018-05-28 16:52 | CP.PCM.CON ---
History of Present Illness - History of Present Illness History of Present Illness: 58 yo woman admitted for depression/suicial ideation is referred for pain management. Patient complains of neuropathic pain from her HIV medications. She states she has pain in her legs, from the knees down, which is throbbing and burning. The pain is constant, both during daytime and also at night. The pain is worsened with ambulation. She has been on Neurontin, as high as 1200mg q8h, as well as Lyrica before without significant relief. She was just started on Cymbalta for her depression after this admission. Past Patient History - Infectious Disease Hx of Infectious Diseases: None - Past Medical History & Family History Past Medical History?: Yes - Past Social History Smoking Status: Light Smoker < 10 Cigarettes Daily Chewing Tobacco Use: No Cigar Use: No Alcohol: None Drugs: Opiates (denied taking Heroin for about 8 months now) - CARDIAC Hx Cardiac Disorders: Yes Hx Hypercholesterolemia: Yes Hx Hypertension: Yes - PULMONARY Hx Respiratory Disorders: Yes Hx Asthma: Yes Hx Bronchitis: Yes Hx Chronic Obstructive Pulmonary Disease (COPD): Yes - NEUROLOGICAL Hx Neurological Disorder: Yes Hx Seizures: Yes (withdrawal induced) - HEENT Hx HEENT Problems: No Other/Comment: uses reading glasses - RENAL Hx Chronic Kidney Disease: No - ENDOCRINE/METABOLIC Hx Endocrine Disorders: No - HEMATOLOGICAL/ONCOLOGICAL Hx Blood Disorders: Yes Hx Anemia: Yes Hx Human Immunodeficiency Virus (HIV): Yes - INTEGUMENTARY Hx Dermatological Problems: Yes Other/Comment: scratches on back healing - MUSCULOSKELETAL/RHEUMATOLOGICAL Hx Musculoskeletal Disorders: No Hx Falls: No - GASTROINTESTINAL Hx Gastrointestinal Disorders: No - GENITOURINARY/GYNECOLOGICAL Hx Genitourinary Disorders: Yes Hx Sexually Transmitted Disorders: No (Patient denied) Hx Urinary Tract Infection: Yes - PSYCHIATRIC Hx Anxiety: Yes Hx Depression: Yes Hx Substance Use: Yes (history of od on Heroin) - SURGICAL HISTORY Hx Surgeries: Yes Hx Tonsillectomy: Yes - ANESTHESIA Hx Anesthesia: Yes Hx Anesthesia Reactions: No Hx Malignant Hyperthermia: No Meds Allergies/Adverse Reactions: Allergies Allergy/AdvReac Type Severity Reaction Status Date / Time Penicillins Allergy pt reports Verified 05/23/18 09:46 seizures - Medications Medications: Current Medications Acetaminophen (Tylenol 325mg Tab) 650 mg PO Q4 PRN PRN Reason: Pain, moderate (4-7) Last Admin: 05/28/18 13:23 Dose: 650 mg Al Hydrox/Mg Hydrox/Simethicone (Maalox Plus 30 Ml) 30 ml PO Q4 PRN PRN Reason: Dyspepsia Albuterol/Ipratropium (Duoneb 3 Mg/0.5 Mg (3 Ml) Ud) 3 ml INH RQ4 PRN PRN Reason: Shortness of Breath Last Admin: 05/27/18 11:30 Dose: 3 ml Diphenhydramine HCl (Benadryl) 50 mg IM Q6 PRN PRN Reason: Extrapyramidal S/S Unable PO Diphenhydramine HCl (Benadryl) 50 mg PO Q6 PRN PRN Reason: Extrapyramidal Symptoms Duloxetine HCl (Cymbalta) 20 mg PO BID [facility] Last Admin: 05/28/18 09:04 Dose: 20 mg Emtricitabine/Tenofovir (Truvada 200 Mg-300 Mg) 1 tab PO DAILY [facility]; Protocol Last Admin: 05/28/18 09:04 Dose: 1 tab Gabapentin (Neurontin) 300 mg PO TID [facility] Last Admin: 05/28/18 12:37 Dose: 300 mg Haloperidol (Haldol) 5 mg PO Q4 PRN PRN Reason: Agitation Haloperidol Lactate (Haldol) 5 mg IM Q4 PRN PRN Reason: Agitation, Unable to Take PO Lorazepam (Ativan) 2 mg IM Q4 PRN PRN Reason: Anxiety/Agitation,Unable PO Lorazepam (Ativan) 1 mg PO Q6 PRN PRN Reason: Anxiety Magnesium Hydroxide (Milk Of Magnesia) 30 ml PO HS PRN PRN Reason: Constipation Quetiapine Fumarate (Seroquel) 300 mg PO HS [facility] Last Admin: 05/27/18 21:10 Dose: 300 mg Quetiapine Fumarate (Seroquel) 50 mg PO HS [facility] Raltegravir (Isentress) 400 mg PO Q12 [facility]; Protocol Last Admin: 05/28/18 09:03 Dose: 400 mg Trazodone HCl (Desyrel) 100 mg PO HS [facility] Last Admin: 05/27/18 21:10 Dose: 100 mg Physical Exam - Extremities Exam Extremities exam: Positive for: normal inspection, tenderness - Back Exam Back exam: CVA tenderness (L), tenderness, vertebral tenderness Results - Vital Signs Recent Vital Signs: Last Vital Signs Temp 98.2 F 05/28/18 16:40 Pulse 89 05/28/18 16:40 Resp 20 05/28/18 16:40 BP 115/66 05/28/18 16:40 Pulse Ox 98 05/23/18 17:56 - Labs Result Diagrams: 05/24/18 06:40 05/24/18 06:40 Assessment & Plan - Assessment and Plan (Free Text) Assessment: 58 yo with neuropathic leg pain. Pain is likely multi-factorial, from lumbar radiculopathy, to vitamin deficiency, and HIV neuropathy. She has been on neuropathic medications before, but is currently on much lower doses than before. This is not an acute issue, work-up is not necessary at this time. Patient has a history of substance abuse, thus controlled substances are contra- indicated. - increase Neurontin to 600mg q8h - consider a muscle relaxant, would start with Baclofen given her other medications - monitor response to Cymbalta, can increase to 30mg then 60mg - other neuropathic pain medications include Elavil/Doxepin, Lamictal/Topamax - consider B12, folate levels, lumbar MRI, as outpatient
[2018-05-29] MEDS: Emtricitabine-Tenofovir 200 mg-300 mg Tab PO SCH (08:53)
--- NOTE | 2018-05-29 08:59 | PCM.PYCHPN ---
Psychiatric Progress Note - Psychiatric Progress Note Patient seen today, length of contact: Pt evaluated, case discussed w/ team, chart reviewed Patient Chief Complaint: "I wanted to kill myself." Problems Identified/Issues Discussed: Pt continues to feel severely depressed, hopeless, w/ low energy and low motivation. Patient wants to spend most of the day in bed. She also reports chronic pain and was evaluated by paint pourer yesterday. NO AH/VH/SI/HI. No adverse effects to medications reported. Medication Change: Yes (Increase Cymbalta) Medical Record Reviewed: Yes Consults ordered or reviewed: Medicine consult Mental Status Examination - Cognitive Function Orientation: Person, Place, Situation, Time Memory: Intact Attention: WNL Concentration: WNL Association: WNL Fund of Knowledge: WN Decription of patient's judgement and insights: Improving I/J - Mood Mood: Depressed, Anxious - Affect Affect: Constricted, Depressed - Speech Speech: Appropriate - Formal Thought Process Formal Thought Process: No Impairment Psychotic Thoughts and Behaviors: Denies AH/VH/paranoia/delusions - Suicidal Ideation Suicidal Ideation: No - Homicidal Ideation Homicidal Ideation: No Goal/Treatment Plan - Goal/Treatment Plan Need for Continued Stay: Remain at risks for inpatient hospitalization, Severe depression anxiety, Discharge may exacerbated symptoms Progress Toward Problem(s) and Goals/Treatment Plan: Bipolar Disorder -Individual and group therapy -Continue Seroquel and Trazodone -Increase Cymbalta -Pain management consult -Medicine consult -Disposition planning Estimated Date of D/C: 06/04/18
--- NOTE | 2018-05-30 08:00 | PCM.PYCHPN ---
Psychiatric Progress Note - Psychiatric Progress Note Patient seen today, length of contact: Pt evaluated, case discussed w/ team, chart reviewed Patient Chief Complaint: "I wanted to kill myself." Problems Identified/Issues Discussed: Pt continues to feel severely depressed, anxious, hopeless, w/ low energy and low motivation. Pt continues to spend most of the day in bed. Patient encouraged to attend groups. NO AH/VH/SI/HI. No adverse effects to medications reported. Medication Change: No Medical Record Reviewed: Yes Consults ordered or reviewed: Medicine consult Mental Status Examination - Cognitive Function Orientation: Person, Place, Situation, Time Memory: Intact Attention: WNL Concentration: WNL Association: WNL Fund of Knowledge: [facility] Decription of patient's judgement and insights: Improving I/J - Mood Mood: Depressed, Anxious - Affect Affect: Constricted, Depressed - Speech Speech: Appropriate - Formal Thought Process Formal Thought Process: No Impairment Psychotic Thoughts and Behaviors: Denies AH/VH/paranoia/delusions - Suicidal Ideation Suicidal Ideation: No - Homicidal Ideation Homicidal Ideation: No Goal/Treatment Plan - Goal/Treatment Plan Need for Continued Stay: Remain at risks for inpatient hospitalization, Severe depression anxiety, Discharge may exacerbated symptoms Progress Toward Problem(s) and Goals/Treatment Plan: Bipolar Disorder -Individual and group therapy -Continue Seroquel and Trazodone -Continue Cymbalta -Pain management consult -Medicine consult -Disposition planning Estimated Date of D/C: 06/04/18
[2018-05-30] MEDS: Emtricitabine-Tenofovir 200 mg-300 mg Tab PO SCH (09:03)
[2018-05-30] MEDS: Albuterol-Ipratrop 3 mg / 0.5 (3 ml) UD INH PRN ×2 (10:17→20:22)
[2018-05-31] MEDS: Emtricitabine-Tenofovir 200 mg-300 mg Tab PO SCH (08:35)
--- NOTE | 2018-05-31 08:46 | PCM.PYCHPN ---
Psychiatric Progress Note - Psychiatric Progress Note Patient seen today, length of contact: Pt evaluated, case discussed w/ team, chart reviewed Patient Chief Complaint: "I wanted to kill myself." Problems Identified/Issues Discussed: Pt continues to feel depressed and anxious w/ low energy and motivation, but states that her sleep is improving and she feels less hopeless. NO AH/VH/SI/HI. No adverse effects to medications reported. Medication Change: No Medical Record Reviewed: Yes Consults ordered or reviewed: Medicine consult Mental Status Examination - Cognitive Function Orientation: Person, Place, Situation, Time Memory: Intact Attention: WNL Concentration: WNL Association: WNL Fund of Knowledge: [facility] Decription of patient's judgement and insights: Improving I/J - Mood Mood: Depressed, Anxious - Affect Affect: Constricted, Depressed - Speech Speech: Appropriate - Formal Thought Process Formal Thought Process: No Impairment Psychotic Thoughts and Behaviors: Denies AH/VH/paranoia/delusions - Suicidal Ideation Suicidal Ideation: No - Homicidal Ideation Homicidal Ideation: No Goal/Treatment Plan - Goal/Treatment Plan Need for Continued Stay: Remain at risks for inpatient hospitalization, Severe depression anxiety, Discharge may exacerbated symptoms Progress Toward Problem(s) and Goals/Treatment Plan: Bipolar Disorder -Individual and group therapy -Continue Seroquel and Trazodone -Continue Cymbalta -Pain management consult -Medicine consult -Disposition planning Estimated Date of D/C: 06/04/18
[2018-05-31] MEDS: Albuterol-Ipratrop 3 mg / 0.5 (3 ml) UD INH PRN (16:25)
[2018-06-01] MEDS: Emtricitabine-Tenofovir 200 mg-300 mg Tab PO SCH (09:37)
--- NOTE | 2018-06-01 11:26 | PCM.PYCHPN ---
Psychiatric Progress Note - Psychiatric Progress Note Patient seen today, length of contact: Pt evaluated, case discussed w/ team, chart reviewed Patient Chief Complaint: "I wanted to kill myself." Problems Identified/Issues Discussed: Pt continues to report feeling depressed, but states that her mood is starting to improve gradually. Pt still spends most of her day in bed. Pt encouraged to get out of bed and attend groups. NO AH/VH/SI/HI. No adverse effects to medications reported. Medication Change: Yes (Increase Seroquel) Medical Record Reviewed: Yes Consults ordered or reviewed: Medicine consult Mental Status Examination - Cognitive Function Orientation: Person, Place, Situation, Time Memory: Intact Attention: WNL Concentration: WNL Association: WNL Fund of Knowledge: WN Decription of patient's judgement and insights: Improving I/J - Mood Mood: Depressed, Anxious - Affect Affect: Constricted, Depressed - Speech Speech: Appropriate - Formal Thought Process Formal Thought Process: No Impairment Psychotic Thoughts and Behaviors: Denies AH/VH/paranoia/delusions - Suicidal Ideation Suicidal Ideation: No - Homicidal Ideation Homicidal Ideation: No Goal/Treatment Plan - Goal/Treatment Plan Need for Continued Stay: Remain at risks for inpatient hospitalization, Severe depression anxiety, Discharge may exacerbated symptoms Progress Toward Problem(s) and Goals/Treatment Plan: Bipolar Disorder -Individual and group therapy -Increase Seroquel -Continue Trazodone -Continue Cymbalta -Pain management consult -Medicine consult -Disposition planning Estimated Date of D/C: 06/04/18
--- NOTE | 2018-06-01 12:04 | PCM.BM ---
Treatment Plan Problems - Problems identified on initial assessmt Suicidal ideation Date Initiated: 05/23/18 Time Initiated: 18:18 Assessment reference: HP, NA Status: Active Hoplessness/Helplessness Date Initiated: 05/23/18 Time Initiated: 18:22 Assessment reference: HP, NA Status: Active Altered Sleep Patterns Date Initiated: 05/23/18 Time Initiated: 18:25 Assessment reference: NA Status: Active Treatment assets and liabiliti Patient Assests: adapts well, cooperative, self-reliant, ADL independent, good support system, negotiates basic needs, cognitively intact, strong [facility] Patient Liabilities: medical problems - Milieu Protocol Maintain good personal hygiene: daily Encourage regular showers, daily Remind patient to perform daily oral care, daily Assist patient to perform ADL's Conduct patient checks and document Observation sheet: Q15 minutes Maintain personal safety: every shift Educate patient to report safety concerns to staff, every shift Monitor environment for contraband/sharps Medication safety: Monitor for expected outcome, potential side effects: every shift, Assess barriers to learning: every shift, Assess readiness for medication education: every shift Milieu Narrative: Bipolar Disorder -Individual and group therapy -Increase Seroquel -Continue Trazodone -Continue Cymbalta -Pain management consult -Medicine consult -Disposition planning Family Contact Family involvement: Family/SO is involved Family contact: Patient agrees to contact, Family has been contacted by patient, Telephone contact initiated by staff Family contact name: Carlo - Father Family contacted how many times per week?: 2 Family contact comment: Sales Person called pt's home in an attempt to speak to pt's father, Carlo, regarding her treatment and progress on the unit. However, pt's father was not home and pt's mother answered. Pt refused to allow screen writer to speak to her mother. Pt's mother will give pt's father the message. Sales Person will attempt to call again on 05/26/19. [phone]. - Outside Agency [facility] Care involvment: Information-sharing Agency contact name: Dr. Bradly MD and Carlo Rogers APN Agency contact number: [phone] [facility] Care involvment: Information-sharing Agency contact number: [phone] - Goals for Treatment Patient goals for treatment: Pt reported she would like to be restabilized on her medication and her mood to be lifted. Discharge/Continuing Care - Education Needs Education Needs: Patient Medication, Patient Diagnosis/Disease Process, Patient Coping Skills, Patient Placement options, Patient Community resources, Patient Aftercare Safety Plan - Discharge Discharge Criteria: Tolerates medication w/o severe side effects, Free of Suicidal thoughts, Free of paranoid thoughts, Free of agitation, Normal sleep pattern, Ability to care for self, Reduction of target symptoms Discharge to:: Home, With Family - Treatment Team Participation Patient/Family/SO Statement: Bipolar Disorder -Individual and group therapy -Increase Seroquel -Continue Trazodone -Continue Cymbalta -Pain management consult -Medicine consult -Disposition planning Discussed with Family/SO: Yes Was Patient/Family/SO present at Treatment Team Meeting: Yes Treatment Plan Review Patient participation: Yes Family/SO/Caregiver participation: No Additional Comments: Pt see and discussed in team meeting. Pt's progress and bx on the unit reviewed and discussed. Pt reported feeling "better." Pt reported that medication adjustment is helping. Pt denied SI and HI. Pt reported feeling less depressed. Pt reported improved sleep pattern. Pt's medications reviewed and discussed. Pt aware of discharge scheduled for 06/04/2018 and agreeable. Pt reported that she will be returning home with her parents. Pt reported that she is linked to [facility] and [facility]. Pt reported that she is scheduled to see Carlo CALDERON for sometime in June for medication management and Joanne Kenyon also next month. Pt uncertain of dates. Verbal authorization to follow up and confirm appointments. SW will continue to follow case. - Problem Suicidal ideation Date Initiated: 05/23/18 Time Initiated: 18:18 Progress toward outcomes: resolved (Pt denied SI/HI) Hoplessness/Helplessness Date Initiated: 05/23/18 Time Initiated: 18:22 Progress toward outcomes: resolved Altered Sleep Patterns Date Initiated: 05/23/18 Time Initiated: 18:25 Progress toward outcomes: resolved - Discharge / Continuing Care Discharge to:: Home, With Family Behavioral Health Services: Outpatient therapy Health Needs: Follow up care/test, Doctor appointments, Nutritional, Medications/Rx, Educational, Recreational/Social, Alcohol/Drug treatment
[2018-06-01] MEDS: Albuterol-Ipratrop 3 mg / 0.5 (3 ml) UD INH PRN (14:20)
[2018-06-02] MEDS: Emtricitabine-Tenofovir 200 mg-300 mg Tab PO SCH (08:40)
--- NOTE | 2018-06-02 09:40 | PCM.PYCHPN ---
Psychiatric Progress Note - Psychiatric Progress Note Patient seen today, length of contact: Pt evaluated, case discussed w/ team, chart reviewed Patient Chief Complaint: I need more pain medicine Problems Identified/Issues Discussed: pt evaluated seen in her room, irritable , labile, speech loud , pt requesting pain medication, limited insight into illness, denied command hallucinations denied S/H I DSM 5 Symptoms Update: bipolar disorder opiate dependence Medication Change: No Medical Record Reviewed: Yes Mental Status Examination - Cognitive Function Orientation: Person, Place, Situation, Time Memory: Intact Attention: WNL Concentration: WNL Association: WNL Fund of Knowledge: WNL - Mood Mood: Depressed, Anxious - Affect Affect: Constricted, Depressed - Speech Speech: Appropriate - Formal Thought Process Formal Thought Process: No Impairment - Suicidal Ideation Suicidal Ideation: No - Homicidal Ideation Homicidal Ideation: No Goal/Treatment Plan - Goal/Treatment Plan Need for Continued Stay: Remain at risks for inpatient hospitalization, Severe depression anxiety, Discharge may exacerbated symptoms Progress Toward Problem(s) and Goals/Treatment Plan: continue current management cbt, MOTIVATIONAL AND GROUP THERAPY Estimated Date of D/C: 06/04/18
[2018-06-03 08:10] LABS: BASO % 0.6 % (0.0-2.0); HEMOGLOBIN 11.4 g/dL (12.0-16.0); LYMPH # 1.1 K/uL (1.0-4.3); MEAN CELL VOLUME 83.3 fl (81.0-99.0); MEAN CORPUSCULAR HEMOGLOBIN 26.9 pg (27.0-31.0); MEAN CORPUSCULAR HGB CONC 32.3 g/dL (33.0-37.0); MEAN PLATELET VOLUME 9.4 fl (7.2-11.7); MONO # 0.5 K/uL (0.0-0.8); MONO % 10.7 % (0.0-10.0); NEUT # 2.7 K/uL (1.8-7.0); NEUT % 61.7 % (50.0-75.0); NRBC % 0.1 % (0.0-0.0); RBC 4.23 Mil/uL (3.80-5.20); RED CELL DISTRIBUTION WIDTH 14.9 % (11.5-14.5); WHITE BLOOD COUNT 4.3 K/uL (4.8-10.8)
[2018-06-03 08:13] LABS: URINE BILIRUBIN NEGATIVE (NEGATIVE); URINE BLOOD NEGATIVE (NEGATIVE); URINE CLARITY CLOUDY (Clear); URINE COLOR AMBER (YELLOW); URINE GLUCOSE (UA) NEG (Normal); URINE LEUKOCYTE ESTERASE LARGE Leu/uL (Negative); URINE PROTEIN 30 mg/dL (NEGATIVE)
[2018-06-03 08:25] LABS: ALB/GLOB RATIO 0.8 (1.0-2.1); ALBUMIN 3.5 g/dL (3.5-5.0); ALT/SGPT 16 U/L (9-52); AST/SGOT 26 U/L (14-36); BLOOD UREA NITROGEN 15 mg/dl (7-17); CALCIUM 8.6 mg/dL (8.4-10.2); GFR NON-AFRICAN AMERICAN > 60
[2018-06-03 08:57] LABS: SQUAMOUS EPITHIAL 5 /hpf (0-5); URINE BACTERIA RARE (<OCC)
[2018-06-03] MEDS: Emtricitabine-Tenofovir 200 mg-300 mg Tab PO SCH (09:15)
--- NOTE | 2018-06-03 14:16 | PCM.PYCHPN ---
Psychiatric Progress Note - Psychiatric Progress Note Patient seen today, length of contact: Pt evaluated, case discussed w/ team, chart reviewed Patient Chief Complaint: I am tired Problems Identified/Issues Discussed: pt evaluated seen in her room, reported feeling tired with low energy, continues to feel down and irritable at times, no reported side effects of medications denied command hallucinations denied S/H I DSM 5 Symptoms Update: bipolar disorder Medication Change: No Medical Record Reviewed: Yes Mental Status Examination - Cognitive Function Orientation: Person, Place, Situation, Time Memory: Intact Attention: WNL Concentration: WNL Association: WNL Fund of Knowledge: WNL - Mood Mood: Depressed, Anxious - Affect Affect: Constricted, Depressed - Speech Speech: Appropriate - Formal Thought Process Formal Thought Process: No Impairment - Suicidal Ideation Suicidal Ideation: No - Homicidal Ideation Homicidal Ideation: No Goal/Treatment Plan - Goal/Treatment Plan Need for Continued Stay: Remain at risks for inpatient hospitalization, Severe depression anxiety, Discharge may exacerbated symptoms Progress Toward Problem(s) and Goals/Treatment Plan: pt presneting with fever , will follow up with internal medicine consult continue current management cbt, MOTIVATIONAL AND GROUP THERAPY Estimated Date of D/C: 06/04/18
[2018-06-03] MEDS: Albuterol-Ipratrop 3 mg / 0.5 (3 ml) UD INH PRN (20:02)
[2018-06-03] MEDS: Tmp-Smz 800 mg-160 mg DS Tab PO SCH (21:09)
[2018-06-04] MEDS: Tmp-Smz 800 mg-160 mg DS Tab PO SCH ×2 (08:30→21:03)
[2018-06-04] MEDS: Emtricitabine-Tenofovir 200 mg-300 mg Tab PO SCH (08:30)
--- NOTE | 2018-06-04 09:33 | PCM.PYCHPN ---
Psychiatric Progress Note - Psychiatric Progress Note Patient seen today, length of contact: Pt evaluated, case discussed w/ team, chart reviewed Patient Chief Complaint: Depression Problems Identified/Issues Discussed: Pt reports feeling depressed, but states that her mood is improving. NO AH/VH/SI/HI. Pt encouraged to get out of bed, participate in groups and shower. Medication Change: No Medical Record Reviewed: Yes Consults ordered or reviewed: Medicine consult Mental Status Examination - Cognitive Function Orientation: Person, Place, Situation, Time Memory: Intact Attention: WNL Concentration: WNL Association: WNL Fund of Knowledge: WN Decription of patient's judgement and insights: Improving I/J - Mood Mood: Anxious - Affect Affect: Constricted - Speech Speech: Appropriate - Formal Thought Process Formal Thought Process: No Impairment Psychotic Thoughts and Behaviors: No AH/VH/paranoia/delusions - Suicidal Ideation Suicidal Ideation: No - Homicidal Ideation Homicidal Ideation: No Goal/Treatment Plan - Goal/Treatment Plan Need for Continued Stay: Severe depression anxiety, Discharge may exacerbated symptoms Progress Toward Problem(s) and Goals/Treatment Plan: Bipolar Disorder -Individual and group therapy -Continue Seroquel -Continue Trazodone -Continue Cymbalta -On Bactrim for UTI -Pain management consult -Medicine consult -Disposition planning Estimated Date of D/C: 06/05/18
[2018-06-05 05:52] VITALS: BP 105/58; PULSE 76; RESP 19; TEMP 98.2
[2018-06-05] MEDS: Tmp-Smz 800 mg-160 mg DS Tab PO SCH (08:54)
--- NOTE | 2018-06-05 08:55 | PCM.PYCHDC ---
Mental Status Examination - Mental Status Examination Orientation: Person, Place, Situation, Time Memory: Intact Mood: Neutral Affect: Broad Speech: Appropriate Attention: WNL Concentration: WNL Association: WNL Fund of Knowledge: WNL Formal Thought Process: No Impairment Description of patient's judgement and insight: Fair I/J Psychotic Thoughts and Behaviors: No AH/VH/paranoia/delusions Suicidal Ideation: No Current Homicidal Ideation?: No Discharge Summary - Discharge Note Reason for Hospitalization: HPI: 58 yo female w/ h/o bipolar disorder, presents w/ worsening depression, sleep/appetite disturbances and suicidal ideation with plan to overdose on drugs. She reports that she feels stressed due to chronic pain and also due to conflict with her family, including being upset that they accused her of stealing money from them. +Feels hopeless/helpless. No AH/VH/paranoia/delusions/HI. PPHx: Multiple past psychiatric admissions for substance abuse and bipolar disorder and history of prior suicide attempts. Currently on Seroquel, Trazodone and Remeron. PMH: HIV, HCV, polysubstance abuse, Asthma, HTN Allergies: PCN Surgical hx: denies Social: History of benzo, opioid/cocaine abuse, currently in remission; lives w/ parents; unemployed. Smokes 2-3 cig/day, declined smoking cessation. Consultations:: List each consultation separately and include: 1. Reason for request. 2. Findings. 3. Follow-up Consultations: Medicine consult Summary of Hospital Course include:: 1. Description of specific treatment plan utilized for patients during their course of treatmen. 2. Summarize the time- course for resolution of acute symptoms and/or regressed behaviors. 3. Describe issues identified and worked on during hospitalization. 4. Describe medication utilized. 5. Describe medical problems identified and treated. 6. Reassessment of suicide risk Summary of Hospital Course: Patient was admitted to the psychiatry unit. Individual and group therapy were provided. She was stabilized on Cymbalta 60 mg PO BID, Seroquel 400 mg PO HS and Trazodone 100 mg PO HS. She reports improvement in mood and denies current depression/anxiety/AH/VH/SI/HI. She was seen by pain management consult who recommended Neurontin 600 mg PO TID. She was also started on Bactrim DS for UTI. - Diagnosis (1) Bipolar disease, chronic Current Visit: No Status: Chronic - Final Diagnosis (DSM 5) Condition upon Discharge: STABLE DSM 5: Bipolar Disorder Disposition: HOME/ ROUTINE Follow-up Treatment Plan: Bipolar Disorder -On Bactrim for UTI -Continue current psychiatric medications -Discharge with outpatient follow-up Prescriptions/Medication Reconciliation: DULoxetine [Cymbalta] 30 mg PO BID #60 ecc Gabapentin [Neurontin] 600 mg PO TID #90 tab QUEtiapine [SEROquel] 400 mg PO HS #60 tab Sulfamethoxazole/Trimethoprim [Bactrim DS Tab] 1 tab PO Q12 #10 tab traZODone [Desyrel] 100 mg PO HS #30 tab - Smoking Cessation Smoking Cessation Medication prescribed: No - Antipsychotic Medications Pt discharged on 2 or more routine antipsychotic medications: No
[2018-06-05] MEDS: Emtricitabine-Tenofovir 200 mg-300 mg Tab PO SCH (08:56)
== END 2018-06-05 11:35 | disposition home or self-care (01) | DRG 885 ==
LOC: H.ER 09:39 → H.ERHOLD 14:29 → H.STEP 17:15
PROVIDERS: ADMIT Psychiatry & Neurology Psychiatry; ATTEND Psychiatry & Neurology Psychiatry
PROC: GZ51ZZZ Individual Psychotherapy, Behavioral (ICD-10-PCS; 2018-05-24)
PROC: GZ56ZZZ Individual Psychotherapy, Supportive (ICD-10-PCS; 2018-05-24)
PROC: GZHZZZZ Group Psychotherapy (ICD-10-PCS; principal; 2018-05-28)
DX: F31.9 Bipolar disorder, unspecified (principal); N39.0 Urinary tract infection, site not specified; R45.851 Suicidal ideations; F60.9 Personality disorder, unspecified; G62.9 Polyneuropathy, unspecified; G89.29 Other chronic pain; I10 Essential (primary) hypertension; I34.1 Nonrheumatic mitral (valve) prolapse; J44.9 Chronic obstructive pulmonary disease, unspecified; E56.9 Vitamin deficiency, unspecified; M54.16 Radiculopathy, lumbar region; Z87.440 Personal history of urinary (tract) infections; Z87.891 Personal history of nicotine dependence; Z91.5 Personal history of self-harm; D64.9 Anemia, unspecified; F14.10 Cocaine abuse, uncomplicated; F41.9 Anxiety disorder, unspecified; J40 Bronchitis, not specified as acute or chronic; R56.9 Unspecified convulsions; M25.50 Pain in unspecified joint; Z21 Asymptomatic human immunodeficiency virus [HIV] infection status; E78.00 Pure hypercholesterolemia, unspecified; F11.21 Opioid dependence, in remission

== ENCOUNTER 2018-07-03 07:39 | Inpatient (IN) | payer MEDICARE, MEDICAID ==
--- NOTE | 2018-07-03 08:46 | ED PDOC ---
HPI: Psych/Substance Abuse Time Seen by Provider: 07/03/18 07:53 Chief Complaint (Nursing): Psychiatric Evaluation Chief Complaint (Provider): Psychiatric Evaluation History Per: Patient History/Exam Limitations: no limitations Onset/Duration Of Symptoms: Days (x5) Current Symptoms Are (Timing): Still Present Additional Complaint(s): 58 year old female presents to the ED stating she has been depressed and suicidal for the past 5 days. She states she has [place] to overdose. Patient takes trazodone and seroquel and has been unable to sleep. Denies homicidal ideation. PMD: Carlo Vicente Past Medical History Reviewed: Historical Data, Nursing Documentation, Vital Signs Vital Signs: Last Vital Signs Temp 98.1 F 07/03/18 07:49 Pulse 98 H 07/03/18 07:49 Resp 18 07/03/18 07:49 BP 132/87 07/03/18 07:49 Pulse Ox 97 07/03/18 07:49 - Medical History PMH: Anemia, Anxiety, Asthma, Bipolar Disorder, Bronchitis, COPD, Depression, HIV, HTN, Hypercholesterolemia, Mitral Valve Prolapse, Paranoia, Personality Disorder, Seizures Denies: Atrial Fibrillation, Cardia Arrhythmia, CHF, Diabetes (Patient denied), Emphysema, Hepatitis (Patient denied), Peripheral Edema, Pneumonia, Pulmonary Embolism, Chronic Kidney Disease, Sickle Cell Disease, Sexually Transmitted Disease (Patient denied), Sleep Apnea, TIA - Surgical History Surgical History: Tonsillectomy Denies: Pacemaker - Family History Family History: States: Unknown Family Hx - Immunization History Hx Tetanus Toxoid Vaccination: Yes (10/2017) Hx Influenza Vaccination: Yes Hx Pneumococcal Vaccination: Yes (10/2017) - Home Medications Home Medications: Ambulatory Orders Medication Instructions Recorded Emtricitabine/Tenofovir Diso 1 tab PO DAILY 05/23/18 [Truvada 200 MG-300 MG] Raltegravir Potassium [Isentress] 400 mg PO Q12 05/23/18 Albuterol/Ipratropium [Duoneb 3 3 ml INH RQ4 PRN neb 06/01/18 mg/0.5 mg (3 ml) UD] DULoxetine [Cymbalta] 30 mg PO BID #60 ecc 06/01/18 Gabapentin [Neurontin] 600 mg PO TID #90 tab 06/01/18 QUEtiapine [SEROquel] 400 mg PO HS #60 tab 06/01/18 traZODone [Desyrel] 100 mg PO HS #30 tab 06/01/18 Sulfamethoxazole/Trimethoprim 1 tab PO Q12 #10 tab 06/04/18 [Bactrim DS Tab] - Allergies Allergies/Adverse Reactions: Allergies Allergy/AdvReac Type Severity Reaction Status Date / Time Penicillins Allergy pt reports Verified 07/03/18 08:00 seizures Review of Systems ROS Statement: Except As Marked, All Systems Reviewed And Found Negative Psych: Positive for: Depression, Suicidal ideation. Negative for: Other (josefina icidal ideation) Physical Exam - Reviewed Nursing Documentation Reviewed: Yes Vital Signs Reviewed: Yes - Physical Exam Appears: Positive for: Non-toxic, No Acute Distress Head Exam: Positive for: ATRAUMATIC, NORMOCEPHALIC Skin: Positive for: Normal Color, Warm, Dry Eye Exam: Positive for: Normal appearance Neck: Positive for: Normal, Painless ROM Cardiovascular/Chest: Positive for: Regular Rate, Rhythm Respiratory: Positive for: Normal Breath Sounds. Negative for: Wheezing, Respiratory Distress Extremity: Positive for: Normal ROM Neurologic/Psych: Positive for: Alert, Oriented. Negative for: Motor/Sensory Deficits - Laboratory Results Result Diagrams: 07/04/18 06:00 07/04/18 06:00 - ECG O2 Sat by Pulse Oximetry: 97 (RA) Pulse Ox Interpretation: Normal Medical Decision Making Medical Decision Making: Initial Plan: Scribe Attestation: Documented by Berlin Richards acting as a scribe for Karina Wick MD. Provider Scribe Attestation: All medical record entries made by the Scribe were at my direction and per sonally dictated by me. I have reviewed the chart and agree that the record accurately reflects my personal performance of the history, physical exam, medical decision making, and the department course for this patient. I have also personally directed, reviewed, and agree with the discharge instructions and disposition. Disposition - Clinical Impression Clinical Impression: Depression - Patient ED Disposition Is Patient to be Admitted: Yes - Disposition Disposition Time: 12:52 Condition: STABLE - Pt Status Changed To: Hospital Disposition Of: Inpatient - Admit Certification Admit to Inpatient:: After my assessment, the patient will require ho spitalization for at least two midnights. This is because of the severity of symptoms shown, intensity of services needed, and/or the medical risk in this patient being treated as an outpatient. - POA Present On Arrival: None
--- NOTE | 2018-07-03 10:21 | RAD ---
Date of service: 07/03/2018 HISTORY: Medical clearance COMPARISON: 05/23/2018 FINDINGS: LUNGS: The lungs are well inflated and clear. PLEURA: No pleural effusions or pneumothorax. CARDIOVASCULAR: The heart is normal in size. No aortic atherosclerotic calcification present. OSSEOUS STRUCTURES: Within normal limits for the patient's age. VISUALIZED UPPER ABDOMEN: Normal. OTHER FINDINGS: None. IMPRESSION: No active pulmonary disease.
[2018-07-03 10:33] LABS: RENAL EPITHELIAL 1 /hpf (0-3); SQUAMOUS EPITHIAL 10 /hpf (0-5); URINE AMORPHOUS SEDIMENT RARE /ul (<OCC); URINE BACTERIA FEW (<OCC); URINE BILIRUBIN NEGATIVE (NEGATIVE); URINE BLOOD NEGATIVE (NEGATIVE); URINE CLARITY CLOUDY (Clear); URINE COLOR YELLOW (YELLOW); URINE GLUCOSE (UA) NEG (NEGATIVE); URINE LEUKOCYTE ESTERASE LARGE Leu/uL (Negative); URINE PROTEIN NEGATIVE (NEGATIVE); URINE UROBILINOGEN 0.2-1.0 mg/dL (0.2-1.0)
[2018-07-03 10:37] LABS: BASO % 1.1 % (0.0-2.0); EOS # 0.1 K/uL (0.0-0.7); EOS % 2.4 % (0.0-4.0); HEMOGLOBIN 13.4 g/dL (12.0-16.0); LYMPH % 30.1 % (20.0-40.0); MEAN CELL VOLUME 85.8 fl (81.0-99.0); MEAN CORPUSCULAR HGB CONC 31.4 g/dL (33.0-37.0); MONO # 0.4 K/uL (0.0-0.8); MONO % 10.3 % (0.0-10.0); NEUT # 1.9 K/uL (1.8-7.0); NEUT % 56.1 % (50.0-75.0); NRBC % 0.1 % (0.0-0.0); RBC 4.95 Mil/uL (3.80-5.20); RED CELL DISTRIBUTION WIDTH 16.7 % (11.5-14.5); WHITE BLOOD COUNT 3.4 K/uL (4.8-10.8)
[2018-07-03 10:54] LABS: ALB/GLOB RATIO 0.8 (1.0-2.1); ALBUMIN 3.6 g/dL (3.5-5.0); ALT/SGPT 31 U/L (9-52); AST/SGOT 23 U/L (14-36); BLOOD UREA NITROGEN 16 mg/dl (7-17); CALCIUM 8.8 mg/dL (8.4-10.2); GFR NON-AFRICAN AMERICAN > 60
[2018-07-03 10:57] LABS: ACETAMINOPHEN < 10.0 ug/ml (10.0-30.0); SALICYLATE < 1.0 mg/dl
[2018-07-03 12:43] LABS: BENZODIAZEPINES, UR NEGATIVE (NEGATIVE)
[2018-07-03 12:45] LABS: BARBITURATES, UR NEGATIVE (NEGATIVE); OPIATES, UR NEGATIVE (NEGATIVE); PHENCYCLIDINE, UR NEGATIVE (NEGATIVE)
[2018-07-03] MEDS ORDERED: Magnesium Hydroxide Susp 30 ml UD PO PRN (13:04)
[2018-07-03] MEDS ORDERED: Alum-Mag Hydrox-Simethicone Susp (30 mL) PO PRN (13:04)
[2018-07-03] MEDS ORDERED: DiphenhydrAMINE 50 mg/ml Inj IM PRN (13:04)
[2018-07-03] MEDS ORDERED: Albuterol-Ipratrop 3 mg / 0.5 (3 ml) UD INH PRN (13:08)
--- NOTE | 2018-07-03 14:20 | PCM.PSYCH ---
Initial Psychiatric Evaluation - Initial Psychiatric Evaluation Type of Admission: Voluntary Legal Status: Capacity Chief Complaint (in patient's own words): "I want to kill myself." Patient's Reaction to Hospitalization: HPI: 58 yo female w/ h/o bipolar disorder, presents w/ worsening depression, sleep/appetite disturbances and suicidal ideation with plan to overdose on heroin. She reports that she feels stressed due to chronic pain and also due to conflict with her family. +Feels hopeless/helpless. No AH/VH/paranoia/delusions/HI. PPHx: Multiple past psychiatric admissions for substance abuse and bipolar disorder and history of prior suicide attempts. Currently on Seroquel, Trazodone and Cymbalta. PMH: HIV, HCV, polysubstance abuse, Asthma, HTN Allergies: PCN Surgical hx: denies Social: History of benzo, opioid/cocaine abuse, currently in remission; lives w/ parents; unemployed. Smokes 2-3 cig/day, declined smoking cessation. Current Medications: Active Medications Generic Name Dose Route Start Last Admin Trade Name Freq PRN Reason Stop Dose Admin Acetaminophen 650 mg 07/03/18 13:04 Tylenol 325mg Tab PO Q4 PRN Pain, moderate (4-7) Al Hydrox/Mg Hydrox/Simethicone 30 ml 07/03/18 13:04 Maalox Plus 30 Ml PO Q4 PRN Dyspepsia Albuterol/Ipratropium 3 ml 07/03/18 13:08 Duoneb 3 Mg/0.5 Mg (3 Ml) Ud INH RQ4 PRN Shortness of Breath Diphenhydramine HCl 50 mg 07/03/18 13:04 Benadryl IM Q6 PRN Extrapyramidal S/S Unable PO Diphenhydramine HCl 50 mg 07/03/18 13:04 Benadryl PO Q6 PRN Extrapyramidal Symptoms Duloxetine HCl 90 mg 07/04/18 09:00 Cymbalta PO DAILY FAY Emtricitabine/Tenofovir 1 tab 07/04/18 09:00 Truvada 200 Mg-300 Mg PO DAILY FAY Protocol Gabapentin 600 mg 07/03/18 17:00 Neurontin PO TID FAY Haloperidol 5 mg 07/03/18 13:04 Haldol PO Q4 PRN Agitation Haloperidol Lactate 5 mg 07/03/18 13:04 Haldol IM Q4 PRN Agitation, Unable to Take PO Lorazepam 2 mg 07/03/18 13:04 Ativan IM Q4 PRN Anxiety/Agitation,Unable PO Magnesium Hydroxide 30 ml 07/03/18 13:04 Milk Of Magnesia PO HS PRN Constipation Quetiapine Fumarate 400 mg 07/03/18 22:00 Seroquel PO HS FAY Raltegravir 400 mg 07/03/18 21:00 Isentress PO Q12 [facility] Protocol Trazodone HCl 300 mg 07/03/18 22:00 Desyrel PO HS FAY Zolpidem Tartrate 5 mg 07/03/18 14:13 Ambien PO HS PRN insomnia Past Psychiatric History - Past Psychiatric History Previous Treatment History: Inpatient Pertinent Medical Hx (Current Medical&Sleep Prob, Allergies): Allergies Allergy/AdvReac Type Severity Reaction Status Date / Time Penicillins Allergy pt reports Verified 07/03/18 08:00 seizures Emtricitabine/Tenofovir Diso [Truvada 200 MG-300 MG] 1 tab PO DAILY 05/23/18 Raltegravir Potassium [Isentress] 400 mg PO Q12 05/23/18 Albuterol/Ipratropium [Duoneb 3 mg/0.5 mg (3 ml) UD] 3 ml INH RQ4 PRN neb 06/01/18 DULoxetine [Cymbalta] 30 mg PO BID #60 ecc 06/01/18 Gabapentin [Neurontin] 600 mg PO TID #90 tab 06/01/18 QUEtiapine [SEROquel] 400 mg PO HS #60 tab 06/01/18 traZODone [Desyrel] 100 mg PO HS #30 tab 06/01/18 Sulfamethoxazole/Trimethoprim [Bactrim DS Tab] 1 tab PO Q12 #10 tab 06/04/18 Review of Systems - Psychiatric Psychiatric: As Per HPI, Abnormal Sleep Pattern, Anhedonia, Anxiety, Change in Appetite, Depression, Difficulty Concentrating, Hopelessness, Suicidal Ideation Mental Status Examination - Personal Presentation Personal Presentation: Looks older than stated age - Affect Affect: Constricted, Depressed - Motor Activity Motor Activity: Calm - Reliability in Providing Information Reliability in Providing Information: Fair - Speech Speech: Organized, Coherent - Mood Mood: Depressed, Anxious - Formal Thought Process Formal Thought Process: No Impairment - Hallucinations/Delusions Additional comments: NO AH/VH/paranoia/delusions - Obsessions/Compulsions Obsessions: No Compulsions: No - Cognitive Functions Orientation: Person, Place, Situation, Time Sensorium: Alert Attention/Concentration: Attentive Judgement: Intact, as evidence by: Insight regarding need for hospitalization Memory: Recent intact, as evidence by: Ability to recall events of the day, Remote intact, as evidenced by: Abilit to recall sig. life events, Remote intact, as evidenced by: Ability to recall historical events - Risk Risk: Suicidal, Diminished functioning - Strength & Assets Inventory Strength & Assets Inventory: Family support, Cooperative DSM 5 DX - DSM 5 DSM 5 Diagnosis: Bipolar Disorder; Opioid Use Disorder, in remission - Recommended/Plan of Treatment Treatment Recommendations and Plan of Treatment: Bipolar Disorder; Opioid Use Disorder, in remission -Admit to psychiatry unit -Continue Seroquel and Trazodone -Increase Cymbalta -Individual and group therapy -Medicine consult -Psychoeducation -Disposition planning Projected ELOS: 7-10 days Discharge Plan and Discharge Criteria: Discharge when patient is psychiatrically stable - Smoking Cessation Smoking Cessation Initiated: No Reason for not providing: Patient declined
--- NOTE | 2018-07-03 15:11 | PCM.BM ---
<Zaira Beavers - Last Filed: 07/03/18 15:08> Treatment Plan Problems - Problems identified on initial assessmt Altered Sleep Patterns Date Initiated: 07/03/18 Time Initiated: 15:11 Assessment reference: HP, NA Status: Active Hopelessness/Helplessness Date Initiated: 07/03/18 Time Initiated: 15:13 Assessment reference: HP, NA Status: Active Self Care Deficit Date Initiated: 07/03/18 Time Initiated: 15:15 Assessment reference: NA Status: Active Treatment assets and liabiliti Patient Assests: adapts well, cooperative, self-reliant, ADL independent, good support system, negotiates basic needs, cognitively intact, strong gregory Patient Liabilities: medical problems - Milieu Protocol Maintain good personal hygiene: daily Encourage regular showers, daily Remind patient to perform daily oral care, daily Assist patient to perform ADL's Conduct patient checks and document Observation sheet: Q15 minutes Maintain personal safety: every shift Educate patient to report safety concerns to staff, every shift Monitor environment for contraband/sharps Medication safety: Monitor for expected outcome, potential side effects: every shift, Assess barriers to learning: every shift, Assess readiness for medication education: every shift Milieu Narrative: Bipolar Disorder; Opioid Use Disorder, in remission -Admit to psychiatry unit -Continue Seroquel and Trazodone -Increase Cymbalta -Individual and group therapy -Medicine consult -Psychoeducation -Disposition planning Discharge/Continuing Care - Treatment Team Participation Patient/Family/SO Statement: Bipolar Disorder; Opioid Use Disorder, in remission -Admit to psychiatry unit -Continue Seroquel and Trazodone -Increase Cymbalta -Individual and group therapy -Medicine consult -Psychoeducation -Disposition planning <Marleen Clifton - Last Filed: 07/04/18 09:38> - Diagnosis (1) Bipolar 1 disorder, depressed Status: Acute Interventions: Medication management, Individual and group therapy, Psychoeducation 07/04/18 09:38 <Lois Gramajo - Last Filed: 07/04/18 15:23> Family Contact Family involvement: Family/SO is involved Family contact: Patient agrees to contact, Family has been contacted by patient, Telephone contact initiated by staff - Outside Agency [facility] Care involvment: Information-sharing Agency contact name: Carlo Rogers AP[employer] Agency contact number: [phone] [facility] Joanne Kessler [facility] Care involvment: Information-sharing Agency contact number: [phone] - Goals for Treatment Patient goals for treatment: Pt will improve her overall mood. Pt will be free of suicide thoughts. Pt will develop strategies for thought distraction when ruminating on the past. Pt will be medication compliance. Discharge/Continuing Care - Education Needs Education Needs: Patient Medication, Patient Diagnosis/Disease Process, Patient Coping Skills, Patient Community resources, Patient Activities of Daily Living, Patient Health Practices/Safety, Patient Personal Hygiene/Grooming, Patient Aftercare Safety Plan - Discharge Discharge Criteria: Tolerates medication w/o severe side effects, Free of Suicidal thoughts, Normal sleep pattern, Ability to care for self, Reduction of target symptoms Discharge to:: Home, With Family - Additional Comments 07/04/18 15:13 Pt seen and discussed in team meeting. Reason for hospitalization reviewed and discussed. Pt reported she was self-referred to the ED due to feeling depressed and no sleep for several days. Pt denied any specific trigger. Pt reported feeling overwhelmed at home due to mother's mental illness and worsening cognitive impairment. 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 Pt's medical and social issues reviewed and discussed. Pt's medications reviewed and discussed. Tx plan reviewed and discussed. SW will continue to follow case. - Treatment Team Participation Discussed with Family/SO: No Was Patient/Family/SO present at Treatment Team Meeting: Yes
[2018-07-03 15:21] VITALS: BMI 24.5
--- NOTE | 2018-07-03 16:33 | CP.PCM.CON ---
History of Present Illness - History of Present Illness History of Present Illness: 58 yo female with history of Hep C, HIV and Asthma admitted to psyche unit because of worsening depression and suicidal ideation. Review of Systems - Review of Systems All systems: reviewed and no additional remarkable complaints except (aside from those mentioned above, 12 point system review were negative by me) Past Patient History - Infectious Disease Hx of Infectious Diseases: None - Past Medical History & Family History Past Medical History?: Yes - Past Social History Smoking Status: Light Smoker < 10 Cigarettes Daily Chewing Tobacco Use: No Cigar Use: No Alcohol: None Drugs: Other (stopped taking Heroin since October,) - CARDIAC Hx Cardiac Disorders: No - PULMONARY Hx Respiratory Disorders: Yes Hx Chronic Obstructive Pulmonary Disease (COPD): Yes - NEUROLOGICAL Hx Neurological Disorder: Yes Other/Comment: parasthesia feet - HEENT Hx HEENT Problems: No - RENAL Hx Chronic Kidney Disease: No - ENDOCRINE/METABOLIC Hx Endocrine Disorders: No - HEMATOLOGICAL/ONCOLOGICAL Hx Blood Disorders: Yes Other/Comment: HIV + - INTEGUMENTARY Hx Dermatological Problems: No - MUSCULOSKELETAL/RHEUMATOLOGICAL Hx Musculoskeletal Disorders: No - GASTROINTESTINAL Hx Gastrointestinal Disorders: No - GENITOURINARY/GYNECOLOGICAL Hx Genitourinary Disorders: Yes Hx Sexually Transmitted Disorders: No Hx Urinary Tract Infection: Yes (frequent) - PSYCHIATRIC Hx Anxiety: Yes Hx Bipolar Disorder: Yes Hx Depression: Yes 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) - SURGICAL HISTORY Hx Tonsillectomy: Yes - ANESTHESIA Hx Anesthesia: Yes Hx Anesthesia Reactions: No Hx Malignant Hyperthermia: No Has any member of the family had a problem w/ anesthesia?: No Meds Allergies/Adverse Reactions: Allergies Allergy/AdvReac Type Severity Reaction Status Date / Time Penicillins Allergy pt reports Verified 07/03/18 08:00 seizures - Medications Medications: Current Medications Acetaminophen (Tylenol 325mg Tab) 650 mg PO Q4 PRN PRN Reason: Pain, moderate (4-7) Al Hydrox/Mg Hydrox/Simethicone (Maalox Plus 30 Ml) 30 ml PO Q4 PRN PRN Reason: Dyspepsia Albuterol/Ipratropium (Duoneb 3 Mg/0.5 Mg (3 Ml) Ud) 3 ml INH RQ4 PRN PRN Reason: Shortness of Breath Diphenhydramine HCl (Benadryl) 50 mg IM Q6 PRN PRN Reason: Extrapyramidal S/S Unable PO Diphenhydramine HCl (Benadryl) 50 mg PO Q6 PRN PRN Reason: Extrapyramidal Symptoms Duloxetine HCl (Cymbalta) 90 mg PO DAILY [facility] Emtricitabine/Tenofovir (Truvada 200 Mg-300 Mg) 1 tab PO DAILY [facility]; Protocol Gabapentin (Neurontin) 600 mg PO TID [facility]AY Haloperidol (Haldol) 5 mg PO Q4 PRN PRN Reason: Agitation Haloperidol Lactate (Haldol) 5 mg IM Q4 PRN PRN Reason: Agitation, Unable to Take PO Lorazepam (Ativan) 2 mg IM Q4 PRN PRN Reason: Anxiety/Agitation,Unable PO Magnesium Hydroxide (Milk Of Magnesia) 30 ml PO HS PRN PRN Reason: Constipation Quetiapine Fumarate (Seroquel) 400 mg PO HS [facility]AY Raltegravir (Isentress) 400 mg PO Q12 [facility]; Protocol Trazodone HCl (Desyrel) 300 mg PO HS FAY Zolpidem Tartrate (Ambien) 5 mg PO HS PRN PRN Reason: insomnia Physical Exam - Constitutional Appears: No Acute Distress - Head Exam Head Exam: ATRAUMATIC - Eye Exam Eye Exam: absent: Scleral icterus - ENT Exam ENT Exam: Mucous Membranes Moist - Neck Exam Neck exam: Negative for: Meningismus - Respiratory Exam Respiratory Exam: absent: Rales, Rhonchi, Wheezes, Respiratory Distress - Cardiovascular Exam Cardiovascular Exam: REGULAR RHYTHM, +S1, +S2 - GI/Abdominal Exam GI & Abdominal Exam: Soft. absent: Tenderness - Rectal Exam Rectal Exam: Deferred - Extremities Exam Extremities exam: Negative for: calf tenderness, pedal edema - Back Exam Back exam: NORMAL INSPECTION - Neurological Exam Neurological exam: Alert, Oriented x3 - Psychiatric Exam Psychiatric exam: Normal Affect - Skin Skin Exam: Dry, Intact Results - Vital Signs Recent Vital Signs: Last Vital Signs Temp 98 F 07/03/18 14:51 Pulse 88 07/03/18 14:51 Resp 19 07/03/18 14:51 BP 147/84 07/03/18 14:51 Pulse Ox 98 07/03/18 13:50 - Labs Result Diagrams: 07/03/18 10:30 07/03/18 10:30 Labs: Laboratory Results - last 24 hr 07/03/18 07/03/18 07/03/18 08:00 10:30 10:30 WBC 3.4 L RBC 4.95 Hgb 13.4 D Hct 42.5 MCV 85.8 D MCH 27.0 MCHC 31.4 L RDW 16.7 H Plt Count 140 MPV 9.0 Neut % (Auto) 56.1 Lymph % (Auto) 30.1 [place] % (Auto) 10.3 H Eos % (Auto) 2.4 Baso % (Auto) 1.1 Neut # (Auto) 1.9 Lymph # (Auto) 1.0 [place] # (Auto) 0.4 Eos # (Auto) 0.1 Baso # (Auto) 0.0 Sodium 143 Potassium 3.7 Chloride 111 H Carbon Dioxide 26 Anion Gap 10 BUN 16 Creatinine 0.8 Est GFR ( Amer) > 60 Est GFR (Non-Af Amer) > 60 Random Glucose 100 Calcium 8.8 Total Bilirubin 0.2 AST 23 ALT 31 Alkaline Phosphatase 77 Total Protein 8.1 Albumin 3.6 Globulin 4.5 H Albumin/Globulin Ratio 0.8 L Urine Color Yellow Urine Clarity Cloudy Urine pH 5.0 Ur Specific [place] 1.021 Urine Protein Negative Urine Glucose (UA) Neg Urine Ketones Negative Urine Blood Negative Urine Nitrate Negative Urine Bilirubin Negative Urine Urobilinogen 0.2-1.0 Ur Leukocyte Esterase Large Urine RBC (Auto) 13 H Urine Microscopic WBC 99 H Ur Squamous Epith Cells 10 H Ur Transition Epith Cell 2 Ur Renal Epithelial Cell 1 Amorphous Sediment Rare H Urine Bacteria Few H Salicylates Urine Opiates Screen Urine Methadone Screen Acetaminophen Ur Barbiturates Screen Ur Phencyclidine Scrn Ur Amphetamines Screen U Benzodiazepines Scrn U Oth Cocaine Metabols U Cannabinoids Screen Alcohol, Quantitative 07/03/18 07/03/18 07/03/18 10:30 12:03 12:10 WBC RBC Hgb Hct MCV MCH MCHC RDW Plt Count MPV Neut % (Auto) Lymph % (Auto) [place] % (Auto) Eos % (Auto) Baso % (Auto) Neut # (Auto) Lymph # (Auto) [place] # (Auto) Eos # (Auto) Baso # (Auto) Sodium Potassium Chloride Carbon Dioxide Anion Gap BUN Creatinine Est GFR ( Amer) Est GFR (Non-Af Amer) Random Glucose Calcium Total Bilirubin AST ALT Alkaline Phosphatase Total Protein Albumin Globulin Albumin/Globulin Ratio Urine Color Urine Clarity Urine pH Ur Specific [place] Urine Protein Urine Glucose (UA) Urine Ketones Urine Blood Urine Nitrate Urine Bilirubin Urine Urobilinogen Ur Leukocyte Esterase Urine RBC (Auto) Urine Microscopic WBC Ur Squamous Epith Cells Ur Transition Epith Cell Ur Renal Epithelial Cell Amorphous Sediment Urine Bacteria Salicylates < 1.0 Urine Opiates Screen Negative Urine Methadone Screen Negative Acetaminophen < 10.0 L Ur Barbiturates Screen Negative Ur Phencyclidine Scrn Negative Ur Amphetamines Screen Negative U Benzodiazepines Scrn Negative U Oth Cocaine Metabols Negative U Cannabinoids Screen Negative Alcohol, Quantitative < 10 Assessment & Plan (1) Depression Status: Acute Comment: psyche is managing (2) Suicidal ideation Status: Acute Priority: High Comment: psyche will manage (3) HIV (human immunodeficiency virus infection) Status: Chronic Comment: continue antiretroviral medications (4) Hepatitis C Status: Chronic Comment: stable (5) Asthma Status: Inactive Comment: Albuterol inhaler 2 puffs q 4hrs prn for wheezing/sob
--- NOTE | 2018-07-03 19:01 | CARD ---
APPROVED REPORT Date of service: 07/03/2018 EKG Measurement Heart [id number] <Conclusion> Normal sinus rhythm Normal ECG
[2018-07-04 06:22] LABS: BASO # 0.1 K/uL (0.0-0.2); BASO % 1.8 % (0.0-2.0); EOS # 0.1 K/uL (0.0-0.7); EOS % 3.1 % (0.0-4.0); HEMOGLOBIN 12.7 g/dL (12.0-16.0); LYMPH # 0.9 K/uL (1.0-4.3); MEAN CELL VOLUME 83.3 fl (81.0-99.0); MEAN CORPUSCULAR HEMOGLOBIN 27.2 pg (27.0-31.0); MEAN CORPUSCULAR HGB CONC 32.6 g/dL (33.0-37.0); MEAN PLATELET VOLUME 8.8 fl (7.2-11.7); MONO # 0.3 K/uL (0.0-0.8); MONO % 11.4 % (0.0-10.0); NEUT # 1.6 K/uL (1.8-7.0); NEUT % 54.7 % (50.0-75.0); RBC 4.68 Mil/uL (3.80-5.20); RED CELL DISTRIBUTION WIDTH 16.5 % (11.5-14.5)
[2018-07-04 06:53] LABS: ALB/GLOB RATIO 0.8 (1.0-2.1); ALBUMIN 3.6 g/dL (3.5-5.0); ALT/SGPT 24 U/L (9-52); AST/SGOT 30 U/L (14-36); BLOOD UREA NITROGEN 20 mg/dl (7-17); CALCIUM 8.8 mg/dL (8.4-10.2); GFR NON-AFRICAN AMERICAN > 60; HDL CHOLESTEROL 49 MG/DL (30-70); LDL CHOLESTEROL 72 mg/dL (0-129)
[2018-07-04 06:59] LABS: T4 5.64 ug/dl (5.5-11.0)
--- NOTE | 2018-07-04 09:43 | PCM.PYCHPN ---
Psychiatric Progress Note - Psychiatric Progress Note Patient seen today, length of contact: Pt evaluated, case discussed w/ team, chart reviewed Patient Chief Complaint: "I wanted to kill myself." Problems Identified/Issues Discussed: Patient continues to report feeling depressed w/ sleep disturbances. She denies acute ideation to harm herself and is able to contract for safety. NO AH/VH/paranoia/delusions. Medication Change: Yes (Increase Cymbalta) Medical Record Reviewed: Yes Consults ordered or reviewed: Medicine consult Mental Status Examination - Cognitive Function Orientation: Person, Place, Situation, Time Memory: Intact Attention: WNL Concentration: WNL Association: [facility] Fund of Knowledge: [facility] Decription of patient's judgement and insights: Fair I/J - Mood Mood: Depressed, Anxious - Affect Affect: Constricted, Depressed - Formal Thought Process Formal Thought Process: No Impairment Psychotic Thoughts and Behaviors: NO AH/VH/paranoia/delusions - Suicidal Ideation Suicidal Ideation: No - Homicidal Ideation Homicidal Ideation: No Goal/Treatment Plan - Goal/Treatment Plan Need for Continued Stay: Remain at risks for inpatient hospitalization, Severe depression anxiety Progress Toward Problem(s) and Goals/Treatment Plan: Bipolar Disorder; Opioid Use Disorder, in remission -Continue Seroquel and Trazodone -Increase Cymbalta -Individual and group therapy -Medicine consult -Psychoeducation -Disposition planning
[2018-07-04] MEDS: Emtricitabine-Tenofovir 200 mg-300 mg Tab PO SCH (12:36)
--- NOTE | 2018-07-05 08:07 | PCM.PYCHPN ---
Psychiatric Progress Note - Psychiatric Progress Note Patient seen today, length of contact: Pt evaluated, case discussed w/ team, chart reviewed Patient Chief Complaint: "I wanted to kill myself." Problems Identified/Issues Discussed: No new evenrs overnight. Patient continues to report feeling depressed w/ sleep disturbances. She denies acute ideation to harm herself and is able to contract for safety. NO AH/VH/paranoia/delusions. No adverse effects to medications reported. Medication Change: No Medical Record Reviewed: Yes Consults ordered or reviewed: Medicine consult Mental Status Examination - Cognitive Function Orientation: Person, Place, Situation, Time Memory: Intact Attention: WNL Concentration: WNL Association: WNL Fund of Knowledge: [facility] Decription of patient's judgement and insights: Fair I/J - Mood Mood: Depressed, Anxious - Affect Affect: Constricted, Depressed - Formal Thought Process Formal Thought Process: No Impairment Psychotic Thoughts and Behaviors: NO AH/VH/paranoia/delusions - Suicidal Ideation Suicidal Ideation: No - Homicidal Ideation Homicidal Ideation: No Goal/Treatment Plan - Goal/Treatment Plan Need for Continued Stay: Remain at risks for inpatient hospitalization, Severe depression anxiety Progress Toward Problem(s) and Goals/Treatment Plan: Bipolar Disorder; Opioid Use Disorder, in remission -Continue Seroquel and Trazodone -Continue Cymbalta -Individual and group therapy -Medicine consult -Psychoeducation -Disposition planning Estimated Date of D/C: 07/09/18
[2018-07-05] MEDS: Emtricitabine-Tenofovir 200 mg-300 mg Tab PO SCH (08:16)
--- NOTE | 2018-07-06 08:31 | PCM.PYCHPN ---
Psychiatric Progress Note - Psychiatric Progress Note Patient seen today, length of contact: Pt evaluated, case discussed w/ team, chart reviewed Patient Chief Complaint: "I wanted to kill myself." Problems Identified/Issues Discussed: Patient continues to report feeling depressed w/ sleep disturbances. She states that she is unable to fall asleep despite staying in bed for long periods of time. She denies acute ideation to harm herself and is able to contract for safety. NO AH/VH/paranoia/delusions. No adverse effects to medications reported. Medication Change: No Medical Record Reviewed: Yes Consults ordered or reviewed: Medicine consult Mental Status Examination - Cognitive Function Orientation: Person, Place, Situation, Time Memory: Intact Attention: WNL Concentration: WNL Association: WNL Fund of Knowledge: [facility] Decription of patient's judgement and insights: Fair I/J - Mood Mood: Depressed, Anxious - Affect Affect: Constricted, Depressed - Formal Thought Process Formal Thought Process: No Impairment Psychotic Thoughts and Behaviors: NO AH/VH/paranoia/delusions - Suicidal Ideation Suicidal Ideation: No - Homicidal Ideation Homicidal Ideation: No Goal/Treatment Plan - Goal/Treatment Plan Need for Continued Stay: Remain at risks for inpatient hospitalization, Severe depression anxiety Progress Toward Problem(s) and Goals/Treatment Plan: Bipolar Disorder; Opioid Use Disorder, in remission -Continue Seroquel and Trazodone -Continue Cymbalta -Individual and group therapy -Medicine consult -Psychoeducation -Disposition planning Estimated Date of D/C: 07/09/18
[2018-07-06] MEDS: Emtricitabine-Tenofovir 200 mg-300 mg Tab PO SCH (08:38)
[2018-07-06 12:04] VITALS: O2SAT 97
[2018-07-07] MEDS: Emtricitabine-Tenofovir 200 mg-300 mg Tab PO SCH (08:42)
--- NOTE | 2018-07-07 09:31 | PCM.PYCHPN ---
Psychiatric Progress Note - Psychiatric Progress Note Patient seen today, length of contact: Pt evaluated, case discussed w/ team, chart reviewed Patient Chief Complaint: Depression Problems Identified/Issues Discussed: Patient reports that her mood is improving, but she continues to have sleep disturbances and feels helpless/hopeless at times. She denies acute ideation to harm herself and is able to contract for safety. NO AH/VH/paranoia/delusions. No adverse effects to medications reported. Medication Change: No Medical Record Reviewed: Yes Consults ordered or reviewed: Medicine consult Mental Status Examination - Cognitive Function Orientation: Person, Place, Situation, Time Memory: Intact Attention: WNL Concentration: WNL Association: WNL Fund of Knowledge: [facility] Decription of patient's judgement and insights: Fair I/J - Mood Mood: Depressed, Anxious - Affect Affect: Constricted, Depressed - Formal Thought Process Formal Thought Process: No Impairment Psychotic Thoughts and Behaviors: NO AH/VH/paranoia/delusions - Suicidal Ideation Suicidal Ideation: No - Homicidal Ideation Homicidal Ideation: No Goal/Treatment Plan - Goal/Treatment Plan Need for Continued Stay: Remain at risks for inpatient hospitalization, Severe depression anxiety Progress Toward Problem(s) and Goals/Treatment Plan: Bipolar Disorder; Opioid Use Disorder, in remission -Continue Seroquel and Trazodone -Continue Cymbalta -Individual and group therapy -Medicine consult -Psychoeducation -Disposition planning Estimated Date of D/C: 07/09/18
[2018-07-07 15:29] LABS: SQUAMOUS EPITHIAL 1 /hpf (0-5); URINE BACTERIA RARE (<OCC); URINE BILIRUBIN NEGATIVE (NEGATIVE); URINE BLOOD NEGATIVE (NEGATIVE); URINE CLARITY SLIGHTY-CLOUDY (Clear); URINE COLOR YELLOW (YELLOW); URINE GLUCOSE (UA) NEG (NEGATIVE); URINE LEUKOCYTE ESTERASE MOD Leu/uL (Negative); URINE PROTEIN NEGATIVE (NEGATIVE); URINE UROBILINOGEN 0.2-1.0 mg/dL (0.2-1.0)
--- NOTE | 2018-07-08 08:34 | PCM.PYCHPN ---
Psychiatric Progress Note - Psychiatric Progress Note Patient seen today, length of contact: Pt evaluated, case discussed w/ team, chart reviewed Patient Chief Complaint: Depression Problems Identified/Issues Discussed: Patient reports that her mood is improving. She is more goal oriented and hopeful for the future. She denies acute ideation to harm herself and is able to contract for safety. NO AH/VH/paranoia/delusions. No adverse effects to medications reported. Medication Change: No Medical Record Reviewed: Yes Consults ordered or reviewed: Medicine consult Mental Status Examination - Cognitive Function Orientation: Person, Place, Situation, Time Memory: Intact Attention: WNL Concentration: WNL Association: [facility] Fund of Knowledge: [facility] Decription of patient's judgement and insights: Fair I/J - Mood Mood: Depressed, Anxious - Affect Affect: Broad - Formal Thought Process Formal Thought Process: No Impairment Psychotic Thoughts and Behaviors: NO AH/VH/paranoia/delusions - Suicidal Ideation Suicidal Ideation: No - Homicidal Ideation Homicidal Ideation: No Goal/Treatment Plan - Goal/Treatment Plan Need for Continued Stay: Remain at risks for inpatient hospitalization, Severe depression anxiety Progress Toward Problem(s) and Goals/Treatment Plan: Bipolar Disorder; Opioid Use Disorder, in remission -Continue Seroquel and Trazodone -Continue Cymbalta -Individual and group therapy -Medicine consult -Psychoeducation -Disposition planning- likely discharge tomorrow as patient is improving clinically Estimated Date of D/C: 07/09/18
[2018-07-08] MEDS: Emtricitabine-Tenofovir 200 mg-300 mg Tab PO SCH (09:53)
[2018-07-09 06:36] VITALS: BP 101/70; PULSE 83; RESP 19; TEMP 97.1
--- NOTE | 2018-07-09 07:45 | PCM.PYCHDC ---
Mental Status Examination - Mental Status Examination Orientation: Person, Place, Situation, Time Memory: Intact Mood: Neutral Affect: Broad Speech: Appropriate Attention: WNL Concentration: WNL Association: WNL Fund of Knowledge: WNL Formal Thought Process: No Impairment Description of patient's judgement and insight: Fair I/J Psychotic Thoughts and Behaviors: NO AH/VH/paranoia/delusions Suicidal Ideation: No Current Homicidal Ideation?: No Discharge Summary - Discharge Note Reason for Hospitalization: HPI: 58 yo female w/ h/o bipolar disorder, presents w/ worsening depression, sleep/appetite disturbances and suicidal ideation with plan to overdose on heroin. She reports that she feels stressed due to chronic pain and also due to conflict with her family. +Feels hopeless/helpless. No AH/VH/paranoia/delusions/HI. PPHx: Multiple past psychiatric admissions for substance abuse and bipolar disorder and history of prior suicide attempts. Currently on Seroquel, Trazodone and Cymbalta. PMH: HIV, HCV, polysubstance abuse, Asthma, HTN Allergies: PCN Surgical hx: denies Social: History of benzo, opioid/cocaine abuse, currently in remission; lives w/ parents; unemployed. Smokes 2-3 cig/day, declined smoking cessation. Consultations:: List each consultation separately and include: 1. Reason for request. 2. Findings. 3. Follow-up Consultations: Medicine consult Summary of Hospital Course include:: 1. Description of specific treatment plan utilized for patients during their course of treatmen. 2. Summarize the time- course for resolution of acute symptoms and/or regressed behaviors. 3. Describe issues identified and worked on during hospitalization. 4. Describe medication utilized. 5. Describe medical problems identified and treated. 6. Reassessment of suicide risk Summary of Hospital Course: Patient was admitted to the psychiatry unit. Individual and group therapy were provided. Patient was stabilized on Cymbalta, Seroquel and Trazodone. Psychoeducation provided on the importance of abstinence from drugs and compliance with treatment and medications. Patient denies acute depression/anxiety/AH/VH/paranoia/delusions. She is currently psychiatrically stable for discharge. - Diagnosis (1) Bipolar 1 disorder, depressed Current Visit: Yes Status: Chronic - Final Diagnosis (DSM 5) Condition upon Discharge: STABLE DSM 5: Bipolar Disorder Disposition: HOME/ ROUTINE Follow-up Treatment Plan: Bipolar Disorder; Opioid Use Disorder, in remission -Continue Seroquel and Trazodone -Continue Cymbalta -Individual and group therapy -Medicine consult -Psychoeducation -Disposition planning- discharge to home with outpatient follow-up Prescriptions/Medication Reconciliation: DULoxetine [Cymbalta] 90 mg PO DAILY #90 ecc Gabapentin [Neurontin] 600 mg PO TID #90 tab Quetiapine Fumarate [Seroquel] 400 mg PO HS #30 tablet Trazodone HCl 300 mg PO HS #30 tablet Zolpidem [Ambien] 5 mg PO HS PRN #30 tab PRN Reason: insomnia - Smoking Cessation Smoking Cessation Medication prescribed: No Reason for not providing: Patient declined - Antipsychotic Medications Pt discharged on 2 or more routine antipsychotic medications: No
[2018-07-09] MEDS: Emtricitabine-Tenofovir 200 mg-300 mg Tab PO SCH (08:29)
== END 2018-07-09 11:00 | disposition home or self-care (01) | DRG 885 ==
LOC: H.ER 07:39 → H.ERHOLD 12:52 → H.STEP 14:23
PROVIDERS: ADMIT Psychiatry & Neurology Psychiatry; ATTEND Psychiatry & Neurology Psychiatry
PROC: GZHZZZZ Group Psychotherapy (ICD-10-PCS; principal; 2018-07-03)
PROC: HZ56ZZZ Individual Psychotherapy for Substance Abuse Treatment, Psychoeducation (ICD-10-PCS; 2018-07-03)
DX: F31.9 Bipolar disorder, unspecified (principal); R45.851 Suicidal ideations; J44.9 Chronic obstructive pulmonary disease, unspecified; F17.210 Nicotine dependence, cigarettes, uncomplicated; Z21 Asymptomatic human immunodeficiency virus [HIV] infection status; B18.2 Chronic viral hepatitis C; G89.29 Other chronic pain; Z63.9 Problem related to primary support group, unspecified; I10 Essential (primary) hypertension; Z88.0 Allergy status to penicillin; E78.00 Pure hypercholesterolemia, unspecified; I34.1 Nonrheumatic mitral (valve) prolapse; F11.90 Opioid use, unspecified, uncomplicated; G47.00 Insomnia, unspecified

== ENCOUNTER 2018-07-11 11:33 | Inpatient (IN) | payer MEDICARE, MEDICAID ==
[2018-07-11 11:34] VITALS: BMI 24.5
[2018-07-11] MEDS ORDERED: Sodium Chloride 0.9% 1,000 ML IV STA ×4 (12:20→18:48)
[2018-07-11] MEDS ORDERED: Naloxone 0.4 mg/ml Inj (Adult) IVP STA ×2 (12:20→22:17)
[2018-07-11] MEDS ORDERED: Naloxone 0.4 mg/ml Inj (Adult) ONE (12:31)
[2018-07-11 13:13] LABS: BASO % 0.3 % (0.0-2.0); HEMOGLOBIN 13.5 g/dL (12.0-16.0); LYMPH # 0.5 K/uL (1.0-4.3); LYMPH % 10.6 % (20.0-40.0); MEAN CELL VOLUME 85.4 fl (81.0-99.0); MEAN CORPUSCULAR HEMOGLOBIN 27.1 pg (27.0-31.0); MEAN CORPUSCULAR HGB CONC 31.7 g/dL (33.0-37.0); MEAN PLATELET VOLUME 9.2 fl (7.2-11.7); MONO # 0.4 K/uL (0.0-0.8); MONO % 7.9 % (0.0-10.0); NEUT % 81.2 % (50.0-75.0); NRBC % 0.1 % (0.0-0.0); RED CELL DISTRIBUTION WIDTH 17.3 % (11.5-14.5); WHITE BLOOD COUNT 4.9 K/uL (4.8-10.8)
[2018-07-11 13:27] LABS: BLOOD UREA NITROGEN 41 mg/dl (7-17); CALCIUM 8.6 mg/dL (8.4-10.2); GFR NON-AFRICAN AMERICAN 18
--- NOTE | 2018-07-11 13:27 | ED PDOC ---
HPI: Psych/Substance Abuse Time Seen by Provider: 07/11/18 11:43 Chief Complaint (Nursing): Substance Abuse Chief Complaint (Provider): Substance Abuse History Per: EMS History/Exam Limitations: intoxication Modifying Factor(s): Narcotics Additional Complaint(s): Tanya Kilgore is a 58 year old female with a past medical history of diabetes and seizures, who was brought in to the emergency department by EMS after being found unconscious. Patient is unable to provide any history. Per ems, patient is suspected of opoids and Benzodiazepines. No other information is available. Patient is noted to have frequent visits for drug abuse. PMD: no provider Past Medical History Reviewed: Historical Data, Nursing Documentation, Vital Signs Vital Signs: Last Vital Signs Temp Pulse 110 H 07/11/18 12:00 Resp 24 07/11/18 12:00 BP 128/76 07/11/18 12:00 Pulse Ox 92 L 07/11/18 12:00 - Medical History PMH: Anemia, Anxiety, Asthma, Bipolar Disorder, Bronchitis, COPD, Depression, HIV, HTN, Hypercholesterolemia, Mitral Valve Prolapse, Paranoia, Personality Disorder, Seizures Denies: Atrial Fibrillation, Cardia Arrhythmia, CHF, Diabetes (Patient denied), Emphysema, Hepatitis (Patient denied), Peripheral Edema, Pneumonia, Pulmonary Embolism, Chronic Kidney Disease, Sickle Cell Disease, Sexually Transmitted Disease (Patient denied), Sleep Apnea, TIA - Surgical History Surgical History: Tonsillectomy Denies: Pacemaker - Family History Family History: States: Unknown Family Hx - Immunization History Hx Tetanus Toxoid Vaccination: Yes (10/2017) Hx Influenza Vaccination: Yes Hx Pneumococcal Vaccination: Yes (10/2017) - Home Medications Home Medications: Ambulatory Orders Medication Instructions Recorded RX: Emtricitabine/Tenofovir Diso 1 tab PO DAILY 05/23/18 [Truvada 200 MG-300 MG] RX: Raltegravir Potassium 400 mg PO Q12 05/23/18 [Isentress] RX: Albuterol/Ipratropium [Duoneb 3 ml INH RQ4 PRN neb 06/01/18 3 mg/0.5 mg (3 ml) UD] RX: Zolpidem [Ambien] 5 mg PO HS PRN #30 tab 07/08/18 Quetiapine Fumarate [Seroquel] 200 mg PO HS 07/11/18 RX: DULoxetine [Cymbalta] 30 mg PO BID 07/11/18 RX: Gabapentin [Neurontin] 300 mg PO TID 07/11/18 RX: Trazodone HCl 100 mg PO HS 07/11/18 - Allergies Allergies/Adverse Reactions: Allergies Allergy/AdvReac Type Severity Reaction Status Date / Time Penicillins Allergy pt reports Verified 07/03/18 08:00 seizures Review of Systems ROS Statement: Except As Marked, All Systems Reviewed And Found Negative Neurological: Positive for: Other (unconscious ) Physical Exam - Reviewed Nursing Documentation Reviewed: Yes Vital Signs Reviewed: Yes - Physical Exam Appears: Negative for: Well (lethargic; no signs of trauma) Head Exam: Positive for: ATRAUMATIC Skin: Positive for: Normal Color (no signs of track hardy, erythema, signs of infection), Warm, Dry Cardiovascular/Chest: Positive for: Regular Rate, Rhythm. Negative for: Murmur Respiratory: Positive for: Crackles (bilateral ), Rhonchi (bilateral) Gastrointestinal/Abdominal: Positive for: Normal Exam, Soft. Negative for: Tenderness Extremity: Positive for: Normal ROM Neurologic/Psych: Positive for: Other (open eyes to sternal rub and pushes hands away on sternal rub ) - Laboratory Results Result Diagrams: 07/16/18 04:41 07/16/18 04:41 - ECG O2 Sat by Pulse Oximetry: 92 (RA) Pulse Ox Interpretation: Abnormal - Critical Care Total Time (In Min): 80 Medical Decision Making Medical Decision Making: Time: 1220 A/P: Work up for drug or alcohol overdose vs. infectious process, rule out PNA. To be given narcan, Chest xray, labs flu swab. Will consider imaging of brain if no improvement --Alcohol serum --Bmp --Influenza A B --Urine drug screen --Cbc with differential --Chest xray --Narcan 0.2 mg IVP --Sodium chloride 1,000 ml --Reassess patient Chest x-ray FINDINGS: LUNGS: The lungs are well inflated. There is mild pulmonary venous congestion. There is confluent airspace disease in both lower lobes. PLEURA: Question of small effusions. No pneumothorax. CARDIOVASCULAR: The heart is normal in size. There is mild fullness in the right suprahilar region. No aortic atherosclerotic calcification present. OSSEOUS STRUCTURES: Within normal limits for the patient's age. VISUALIZED UPPER ABDOMEN: Normal. OTHER FINDINGS: None. IMPRESSION: Confluent airspace disease in the lower lobes may represent pneumonia. Follow-up after medical management is recommended to ensure complete resolution. Fullness in the right suprahilar region on this limited portable examination is nonspecific and could be vascular in etiology however hilar adenopathy/mass cannot be excluded. Repeat PA and lateral radiographs are recommended for further evaluation. 1617 Patient is flu positive. Provider is unable to give Tamiflu at this time because patient is not able to swallow PO medications. Patient is receiving IV fluids. ABG shows that patient is acidosis, however lactate is normal. Toxic screen is positive for opioids. Potassium has now gotten within normal limits. Will reassess patient and will probably request for admission. 1651 Cultures were drawn through EJ. A second line was placed and was started on Levofloxacin 750 mg in 150 ml IVPB for possible PNA. Patient is still not conscious to take PO tamiflu. Will get CT brain to rule out brain injury. Possible admission to ICU. 18:00 Spoke with radiologist regarding CT findings and was informed that the images are suggestive of left sided ischaemia but if was unclear. Radiologist suggested MRI which is ordered. [address] Dennis to consult on patient and she recommends CTA head and neck which is ordered but radiologist unable to perform at this time due to GFR of 18. atm technician contacted and MRI to be performed now. Spoke with Dr. Price for admission and discussed case with Dr. Crawford, Senior Administrative Support, for ICU admission. Per recommendations from Dr. Dennis, pt to get 100ml NS/hr, rectal ASA, and echo study. Pt admitted to the ICU. Scribe Attestation: Documented by Terrence Mishra, acting as a scribe for Elvie Watson MD. Provider Scribe Attestation: All medical record entries made by the Scribe were at my direction and personally dictated by me. I have reviewed the chart and agree that the record accurately reflects my personal performance of the history, physical exam, medical decision making, and the department course for this patient. I have also personally directed, reviewed, and agree with the discharge instructions and disposition. Disposition - Clinical Impression Clinical Impression: Bilateral pneumonia, Unresponsive, Benzodiazepine abuse, HIV (human immunod eficiency virus infection), CVA (cerebral vascular accident) - Disposition Disposition Time: 18:30 Condition: GUARDED
[2018-07-11] MEDS ORDERED: Albuterol-Ipratrop 3 mg / 0.5 (3 ml) UD INH STA ×2 (13:30)
--- NOTE | 2018-07-11 13:56 | RAD ---
Date of service: 07/11/2018 HISTORY: possible admission COMPARISON: 07/03/2018 FINDINGS: LUNGS: The lungs are well inflated. There is mild pulmonary venous congestion. There is confluent airspace disease in both lower lobes. PLEURA: Question of small effusions. No pneumothorax. CARDIOVASCULAR: The heart is normal in size. There is mild fullness in the right suprahilar region. No aortic atherosclerotic calcification present. OSSEOUS STRUCTURES: Within normal limits for the patient's age. VISUALIZED UPPER ABDOMEN: Normal. OTHER FINDINGS: None. IMPRESSION: Confluent airspace disease in the lower lobes may represent pneumonia. Follow-up after medical management is recommended to ensure complete resolution. Fullness in the right suprahilar region on this limited portable examination is nonspecific and could be vascular in etiology however hilar adenopathy/mass cannot be excluded. Repeat PA and lateral radiographs are recommended for further evaluation.
[2018-07-11] MEDS ORDERED: Albuterol-Ipratrop 3 mg / 0.5 (3 ml) UD ONE (14:01)
[2018-07-11] MEDS ORDERED: Insulin Regular 100 units/ml SC STA (14:32)
[2018-07-11] MEDS ORDERED: Dextrose 50% SYRINGE Inj (50 ml) IVP STA (14:33)
[2018-07-11] MEDS ORDERED: Dextrose 50% SYRINGE Inj (50 ml) ONE ×2 (14:35→19:55)
[2018-07-11 15:15] LABS: BARBITURATES, UR NEGATIVE (NEGATIVE); BENZODIAZEPINES, UR POSITIVE (NEGATIVE); OPIATES, UR POSITIVE (NEGATIVE); PHENCYCLIDINE, UR NEGATIVE (NEGATIVE)
[2018-07-11 15:27] LABS: ABG ALLEN TEST YES; ARTERIAL BLOOD GAS HCO3 19.8 mmol/L (21-28); ARTERIAL BLOOD GAS O2 SAT 98.3 % (95-98); ARTERIAL BLOOD GAS PCO2 61 mm/Hg (35-45); ARTERIAL BLOOD GAS PH 7.18 (7.35-7.45); ARTERIAL BLOOD GAS PO2 101 mm/Hg (80-100); ARTERIAL BLOOD GAS TCO2 24.7 mmol/L (22-28)
[2018-07-11] MEDS ORDERED: levoFLOXacin 750 mg in D5W 750 MG/150 ML BAG IVPB STA (17:08)
[2018-07-11] MEDS ORDERED: levoFLOXacin 750 mg in D5W 750 MG/150 ML BAG IVPB ONE (17:11)
--- NOTE | 2018-07-11 18:11 | CT ---
Date of service: 07/11/2018 PROCEDURE: CT HEAD WITHOUT CONTRAST. HISTORY: AMS COMPARISON: Noncontrast head CT performed 06/14/16 TECHNIQUE: Axial computed tomography images were obtained through the head/brain without intravenous contrast. Radiation dose: Total exam DLP = 1856.68 mGy-cm. This CT exam was performed using one or more of the following dose reduction techniques: Automated exposure control, adjustment of the mA and/or kV according to patient size, and/or use of iterative reconstruction technique. FINDINGS: HEMORRHAGE: No intracranial hemorrhage. BRAIN: No mass effect or edema. More prominent hypodense focus noted in the left centrum semiovale region. Scattered periventricular and subcortical white matter hypodensities, which are nonspecific, but often seen with chronic microvascular ischemic disease. Please note that MRI with diffusion imaging is more sensitive in the detection of acute ischemic event. VENTRICLES: No hydrocephalus. CALVARIUM: Unremarkable. PARANASAL SINUSES: Increased attenuation of the bilateral maxillary sinus contents may indicate proteinaceous material or fungal colonization. Mucosal thickening of the ethmoid air cells. MASTOID AIR CELLS: Unremarkable as visualized. No inflammatory changes. OTHER FINDINGS: Partially imaged endotracheal tube. IMPRESSION: Moderate nonspecific white matter changes. More prominent hypodense focus noted in the left centrum semiovale region. MRI with diffusion imaging suggested for further evaluation if indicated. Increased attenuation of the bilateral maxillary sinus contents may indicate proteinaceous material or fungal colonization. Mucosal thickening of the ethmoid air cells. Findings discussed with Dr. Elvie Watson on 07/11/18 at 6:04 p.m.
[2018-07-11] MEDS ORDERED: Dextrose 50% SYRINGE Inj (50 ml) IV PRN (18:48)
[2018-07-11] MEDS ORDERED: Glucagon Recombinant 1 mg Inj IM PRN (18:48)
[2018-07-11 19:12] LABS: SQUAMOUS EPITHIAL 1 /hpf (0-5); URINE BACTERIA OCC (<OCC); URINE BILIRUBIN NEGATIVE (NEGATIVE); URINE BLOOD MODERATE (NEGATIVE); URINE CLARITY CLOUDY (Clear); URINE GLUCOSE (UA) NEG (NEGATIVE); URINE HYALINE CAST 0-2 /hpf (0-2); URINE UROBILINOGEN 0.2-1.0 mg/dL (0.2-1.0)
[2018-07-11] MEDS ORDERED: Albuterol-Ipratrop 3 mg / 0.5 (3 ml) UD INH PRN (19:13)
--- NOTE | 2018-07-11 19:14 | CP.PCM.HP ---
History of Present Illness - History of Present Illness History of Present Illness: History taken by ED doctor and patient records. 58 y/o F with PMhx of HIV, Substance abuse, Asthma, bipolar disorder, Hep C presented to ED via EMS after being found unconscious. Per ED doctor pt received Narcan x1 form EMS and she is s/p another dose in ED. On arrival patient was unable to provide history and at physical exam she still lethargic and unable to provide any information. Patient open her eyes with voice and move her head from left to right but unable to follow any other commands. Per EMS, patient is suspected of opoids and Benzodiazepines. Patient is afebrile and is breathing comfortable in non breathing mask. PMD: at [facility] Per Records: PMH: HIV, HCV, polysubstance abuse, bipolar disorder, Asthma, HTN, seizure disorder Medications: see bellow Allergies: PCN Surgical hx: denies Social: +benzodiazepenes, denies heroin, marijuana, cocaine, tobacco recently. Hx of heroin abuse Family hx: unknown Next of kin: Carlo Kilgore (Father) Present on Admission - Present on Admission Any Indicators Present on Admission: No Review of Systems - Review of Systems All systems: reviewed and no additional remarkable complaints except (HPI) Past Patient History - Infectious Disease Hx of Infectious Diseases: None - Past Medical History & Family History Past Medical History?: Yes - Past Social History Smoking Status: Light Smoker < 10 Cigarettes Daily - CARDIAC Hx Atrial Fibrillation: No Hx Cardia Arrhythmia: No Hx Congestive Heart Failure: No Hx Hypercholesterolemia: Yes Hx Hypertension: Yes Hx Mitral Valve Prolapse: Yes Hx Pacemaker: No Hx Peripheral Edema: No - PULMONARY Hx Asthma: Yes Hx Bronchitis: Yes Hx Chronic Obstructive Pulmonary Disease (COPD): Yes Hx Emphysema: No Hx Pneumonia: No Hx Pulmonary Embolism: No Hx Sleep Apnea: No - NEUROLOGICAL Hx Seizures: Yes Hx Transient Ischemic Attacks (TIA): No - HEENT Hx HEENT Problems: No - RENAL Hx Chronic Kidney Disease: No - ENDOCRINE/METABOLIC Hx Endocrine Disorders: No - HEMATOLOGICAL/ONCOLOGICAL Hx Anemia: Yes Hx Human Immunodeficiency Virus (HIV): Yes Hx Sickle Cell Disease: No - INTEGUMENTARY Hx Dermatological Problems: No - MUSCULOSKELETAL/RHEUMATOLOGICAL Hx Musculoskeletal Disorders: No - GASTROINTESTINAL Hx Gastrointestinal Disorders: No - GENITOURINARY/GYNECOLOGICAL Hx Sexually Transmitted Disorders: No (Patient denied) - PSYCHIATRIC Hx Anxiety: Yes Hx Bipolar Disorder: Yes Hx Depression: Yes Hx Paranoia: Yes - SURGICAL HISTORY Hx Tonsillectomy: Yes - ANESTHESIA Hx Anesthesia: Yes Hx Anesthesia Reactions: No Hx Malignant Hyperthermia: No Meds Allergies/Adverse Reactions: Allergies Allergy/AdvReac Type Severity Reaction Status Date / Time Penicillins Allergy pt reports Verified 07/03/18 08:00 seizures Physical Exam - Constitutional Appears: Other (very lethargic) - Head Exam Head Exam: NORMAL INSPECTION - Eye Exam Eye Exam: EOMI, PERRL (minimal) - Respiratory Exam Respiratory Exam: Decreased Breath Sounds, Rales (bilateral), Rhonchi. absent: Respiratory Distress - Cardiovascular Exam Cardiovascular Exam: REGULAR RHYTHM, +S1, +S2. absent: Tachycardia - GI/Abdominal Exam GI & Abdominal Exam: Soft. absent: Distended, Tenderness - Extremities Exam Extremities exam: Negative for: pedal edema - Neurological Exam Additional comments: lethargic, open eyes to strong voice, R arm unable to keep elevated, l hand strength 1+ - Expanded Neurological Exam Expanded Neuro motor strength exam: Left Upper Extremity: 2/1, Right Upper Extremity: 0 Coma Scale Eye Opening: To Voice - Skin Skin Exam: Dry, Warm Additional comments: no signs of track hardy, erythema, signs of infection Results - Vital Signs Recent Vital Signs: Last Vital Signs Temp 99 F 07/11/18 17:24 Pulse 89 07/11/18 17:24 Resp 20 07/11/18 17:24 BP 114/73 07/11/18 17:24 Pulse Ox 92 L 07/11/18 18:56 - Labs Result Diagrams: 07/11/18 12:49 07/11/18 14:06 Labs: Laboratory Results - last 24 hr 07/11/18 07/11/18 07/11/18 12:49 12:49 12:49 WBC 4.9 D RBC 5.00 Hgb 13.5 Hct 42.7 MCV 85.4 D MCH 27.1 MCHC 31.7 L RDW 17.3 H Plt Count 154 MPV 9.2 Neut % (Auto) 81.2 H Lymph % (Auto) 10.6 L [place] % (Auto) 7.9 Eos % (Auto) 0.0 Baso % (Auto) 0.3 Neut # (Auto) 4.0 Lymph # (Auto) 0.5 L [place] # (Auto) 0.4 Eos # (Auto) 0.0 Baso # (Auto) 0.0 pCO2 pO2 HCO3 ABG pH ABG Total CO2 ABG O2 Saturation ABG Base Excess Bob Test ABG Potassium A-a O2 Difference Glucose Lactate Vent Mode FiO2 Crit Value Called To Crit Value Called By Crit Value Read Back Blood Gas Notified Time Sodium 138 Potassium 6.5 H* D Chloride 101 Carbon Dioxide 26 Anion Gap 18 BUN 41 H Creatinine 2.7 H Est GFR ( Amer) 22 Est GFR (Non-Af Amer) 18 Random Glucose 133 H Calcium 8.6 Arterial Blood Potassium Urine Opiates Screen Urine Methadone Screen Ur Barbiturates Screen Ur Phencyclidine Scrn Ur Amphetamines Screen U Benzodiazepines Scrn U Oth Cocaine Metabols U Cannabinoids Screen Alcohol, Quantitative < 10 Influenza Typ A,B (EIA) Pos for influenza a H 07/11/18 07/11/18 07/11/18 14:06 14:51 15:17 WBC RBC Hgb Hct MCV MCH MCHC RDW Plt Count MPV Neut % (Auto) Lymph % (Auto) [place] % (Auto) Eos % (Auto) Baso % (Auto) Neut # (Auto) Lymph # (Auto) [place] # (Auto) Eos # (Auto) Baso # (Auto) pCO2 61 H pO2 101 H HCO3 19.8 L ABG pH 7.18 L* ABG Total CO2 24.7 ABG O2 Saturation 98.3 H ABG Base Excess -6.5 L Bob Test Yes ABG Potassium 4.6 A-a O2 Difference 536.0 Glucose 312 H Lactate 0.9 Vent Mode Nrm FiO2 100.0 Crit Value Called To Dr galilea correia Crit Value Called By 6075 Crit Value Read Back Y Blood Gas Notified Time 1527 Sodium 134.0 Potassium 5.7 H Chloride 103.0 Carbon Dioxide Anion Gap BUN Creatinine Est GFR ( Amer) Est GFR (Non-Af Amer) Random Glucose Calcium Arterial Blood Potassium 4.6 Urine Opiates Screen Positive H Urine Methadone Screen Negative Ur Barbiturates Screen Negative Ur Phencyclidine Scrn Negative Ur Amphetamines Screen Negative U Benzodiazepines Scrn Positive U Oth Cocaine Metabols Negative U Cannabinoids Screen Negative Alcohol, Quantitative Influenza Typ A,B (EIA) Assessment & Plan - Assessment and Plan (Free Text) Assessment: 58 y/o F with PMhx of HIV, Substance abuse, Asthma, bipolar disorder, Hep C presented to ED via EMS after being found unconscious. Per EMS, patient is suspected of opoids and Benzodiazepines. On arrival patient was unable to provide history and at physical exam she still lethargic and unable to provide any information. Patient open her eyes with voice and move her head from left to right but unable to follow any other commands. Patient is afebrile and is breathing comfortable in non breathing mask. s/p narcan x2. Plan: Altered mental status Toxic metabolic encephalopathy - likely secondary to drug use vs seizure - urine screen positive for opiates and bezodiazepines - admit to tele - s/p narcan x2. - head CT: suggestive of left sided ischaemia - Neurologic consult Dr Dennis, recommendations appreciated - for MRI and neck/head CT angio - seizures precautions - f/u labs in am Influenza - afebrile, WBC wnl - positive influenza serology - Tamiflu PO pending, pt unable to swallow Pneumonia - CXR: Confluent airspace disease in the lower lobes may represent pneumonia. Fullness in the right suprahilar region is nonspecific and could be vascular in etiology however consider hilar adenopathy/mass. - afebrile, no white count, lactate 0.9 - likely influenza pneumonia due to positive influenza serology - Tamiflu PO pending, pt unable to swallow - levaquin IV x1, continue - labs in am Acute renal injury - likely secondary to dehydration vs rahbdo - BUN/Cr 41/2.7 - monitor CPK - s/p 2L NS - continue IVF - UA - monitor Hyperkalemia, resolving - K 6.5> 5.7 - treated - labs in am History of Drug abuse - Urine positive for opiates and benzodiazepine - s/p narcan x2. - will monitor HIV - on truvada - hold PO meds for now Bipolar disorder - multiples psych unit admissions noted in chart - hold PO meds for now Prophylaxis DVT: SCD for now Case seen and examined with Dr Price
[2018-07-11 19:34] LABS: PROTHROMBIN TIME 11.5 Seconds (9.8-13.1)
[2018-07-11 19:37] LABS: PARTIAL THROMBOPLASTIN TIME 28.9 Seconds (25.6-37.1)
[2018-07-11 19:39] LABS: URINE LEUKOCYTE ESTERASE TRACE Leu/uL (Negative)
[2018-07-11 19:40] LABS: URINE COLOR DARK YELLOW (YELLOW); URINE PROTEIN >=300 mg/dL (NEGATIVE)
[2018-07-11 20:20] LABS: ALB/GLOB RATIO 0.9 (1.0-2.1); ALBUMIN 3.4 g/dL (3.5-5.0); BILIRUBIN,DIRECT 0.2 mg/ml (0.0-0.4); TROPONIN I 3.18 ng/mL (0.00-0.120)
--- NOTE | 2018-07-11 22:26 | CP.CCUPN ---
CCU Subjective - Physician Review Subjective (Free Text): Discussed with ER MD, no history obtainable from unresponsive and nonverbal; patient, chart and old medical records reviewed: 51 F with h/o HIV disease with last known CD4= 18 in Mar 2018, admitted today for AMS. H/o of frequent ER visits and admissions for polysubstance drug OD / intoxication. In ER underwent initial eval for possible CVA. Empiric Levaquin given, fluid challenges. Other vitals and I/O's reviewed. 100.0F, SBP 90-100s, HR 89 sinus, RR 21 on 10 0% NRBM, with 93% SPO2. Allergies: Penicillin Meds: Cymbalta, Seroquel, Trazodone, Duoneb, Ambien, Neurontin, Tenofovir/Emtricitabine/ Raltegravir ROS: No other pertinent negs or positives on 10+ system review obtainable due to nonverbal state. PMSFH: HTN, asthma, HIV disease, IVDA, HCV, BiPolar/ Schizoaffective disorders, Suicide attempts, known to be non-compliant with meds. All other Nursing and physician documentation reviewed to date; no new pertinent info noted relevant to current medical problems. EXAM- HEENT: no icterus, no gaze preference, Pupils equal, 3 mm and reactive, no nystagmus, depressed gag present. NECK: no JVD visible, supple, carotids equal upstroke bilat/no bruits CHEST: decreased BS at the bases, no wheezes audible HEART: regular tachy, distant, S1S2, no rubs ABD: soft, no distension, no tympany, no guarding, no organomegaly, BS hypoactive. EXT: No edema, no mottling; no calf tenderness or palpable cords, distal pulses intact and symmetrical, no cyanosis. NEURO: withdraws UE's and LE's to pain, overall motor R: 2/5, L: 4/5, GCS= 7 ([id number]) SKIN: no rashes, warm and dry LABS: WBC= 4.9 HGB= 13.5 PLTs= 154K Coags: pending 7.18/61/101 98% sat'n on ABG Lactate= 0.9 Na= 138 K= 6.5 not lysed OW=807 HCO3= 26 BUN/Cr= 41/2.7 BS= 133 UDS= + opiates, BZDPs ETOH negative Influenza + CXR: multilobar interstitial changes: RLL, R hilar region, and L basilar retrocardiac region (my interp). EKG: sinus 111/min, normal axis, nonspecific ST T changes V1-V2 (my interp). CT Brain: negative for acute pathology, ?? subacute Left sided basal ganglia hypodensity (my interp). IMPRESSION / MAJOR PROBLEMS: 1. AMS 2' occult toxic / polysubstance abuse and / or OD; r/o other toxic medication effect (psychoactive [employer] meds); HIV / AIDS -related [employer] infection, occult seizure activity, NCSE. 2. JOE; r/o ATN, with Hyperkalemia; r/o Tenofovir - renal toxicity: normal renal function noted 2 weeks ago. 3. Acute Resp Insufficiency with Hypercarbia and Hypoxemia, 2' bilateral Pneumonia, r/o Atypical organisms / Aspiration pneumonia PLAN: 1. Consider more Narcan, possibly Narcan Drip. 2. Blood and urine cultures already obtained in ER. Consider broadening empiric abx coverage; e.g. Vanco, Aztreonam and Bactrim. Add Oseltamivir ( via NGT). May need ID eval. 3. IV fluid challenges for volume expansion given relative decrease in BPs noted. Monitor serial Lactate. ECHO. If hyperkalemia persists, NGT for Kayexalate administration, and change IVFs to alkalinized fluid hydration. 4. Hold all psychoactive meds: Cymbalta, Ambien, Trazodone, Seroquel. 5. Check coags, CPK, urine spot lytes, serial Trop levels, repeat EKG, LFTs, serum ammonia, serial accuchecks q2-4H. 6. Repeat brain imaging in 24H, or MRI as directed by Neurology. EEG. 7. Monitor for need for airway protection and assisted breathing support. Appears too lethargic for BiPAP. [place] MV support, no Advance Directives noted. Repeat ABG.
[2018-07-11] MEDS: Insulin Regular 100 units/ml SC SCH (22:37)
[2018-07-12 00:23] LABS: ABG ALLEN TEST YES; ARTERIAL BLOOD GAS HCO3 19.7 mmol/L (21-28); ARTERIAL BLOOD GAS HEMOGLOBIN 12.5 g/dL (11.7-17.4); ARTERIAL BLOOD GAS O2 CAPACITY 17.3 mL/dL (16-24); ARTERIAL BLOOD GAS O2 CONTENT 16.6 ML/dL (15-23); ARTERIAL BLOOD GAS PCO2 56 mm/Hg (35-45); ARTERIAL BLOOD GAS PO2 82 mm/Hg (80-100); ARTERIAL BLOOD GAS TCO2 23.6 mmol/L (22-28)
[2018-07-12 01:04] LABS: ALB/GLOB RATIO 0.9 (1.0-2.1); ALBUMIN 3.6 g/dL (3.5-5.0); CALCIUM 7.9 mg/dL (8.4-10.2)
[2018-07-12 01:14] LABS: TROPONIN I 3.6 ng/mL (0.00-0.120)
[2018-07-12] MEDS ORDERED: Enoxaparin 80 mg Syringe SC STA (01:40)
[2018-07-12] MEDS ORDERED: Sodium Bicarbonate 8.4% 150 MEQ in Dextrose 5%/0.45% NS 1,000 ML IV SCH (02:15)
[2018-07-12 05:37] LABS: BASO % 0.2 % (0.0-2.0); EOS % 0.2 % (0.0-4.0); HEMOGLOBIN 12.6 g/dL (12.0-16.0); LYMPH # 0.5 K/uL (1.0-4.3); LYMPH % 8.7 % (20.0-40.0); MEAN CELL VOLUME 86.7 fl (81.0-99.0); MEAN CORPUSCULAR HEMOGLOBIN 27.1 pg (27.0-31.0); MEAN CORPUSCULAR HGB CONC 31.3 g/dL (33.0-37.0); MEAN PLATELET VOLUME 9.3 fl (7.2-11.7); MONO # 0.4 K/uL (0.0-0.8); MONO % 7.5 % (0.0-10.0); NEUT # 4.5 K/uL (1.8-7.0); NEUT % 83.4 % (50.0-75.0); NRBC % 0.1 % (0.0-0.0); PLATELET COUNT 116 K/uL (130-400); RBC 4.63 Mil/uL (3.80-5.20); RED CELL DISTRIBUTION WIDTH 17.7 % (11.5-14.5); WHITE BLOOD COUNT 5.4 K/uL (4.8-10.8)
[2018-07-12 05:43] LABS: ALB/GLOB RATIO 0.8 (1.0-2.1); ALBUMIN 3.4 g/dL (3.5-5.0); CALCIUM 7.9 mg/dL (8.4-10.2)
[2018-07-12] MEDS: Insulin Regular 100 units/ml SC SCH ×4 (08:23→22:57)
[2018-07-12 08:44] LABS: LYMPHOCYTE 16 % (20-50); MONOCYTE 4 % (0-10); NEUTROPHIL 80 % (42-75); PLATELET ESTIMATE SLIGHTLY DECREASED (NORMAL); TOTAL CELLS COUNTED 100
[2018-07-12 08:47] LABS: ANISOCYTOSIS SLIGHT
--- NOTE | 2018-07-12 08:47 | RAD ---
Date of service: 07/11/2018 HISTORY: Pulmonary crackles COMPARISON: 07/11/2018 at 12:51 p.m.. FINDINGS: LUNGS: The lungs are well inflated. There is interval development of right lower lobe collapse. The left lung is well inflated. There is subsegmental atelectasis in the left lower lobe. PLEURA: No pleural effusions or pneumothorax. CARDIOVASCULAR: The heart is normal in size. No aortic atherosclerotic calcification present. OSSEOUS STRUCTURES: Within normal limits for the patient's age. VISUALIZED UPPER ABDOMEN: Normal. OTHER FINDINGS: None. IMPRESSION: Interval development of right lower lobe collapse. Persistent subsegmental atelectasis in the left lower lobe.
[2018-07-12] MEDS ORDERED: levoFLOXacin 750 mg in D5W 150 ML BAG IVPB SCH (09:00)
[2018-07-12] MEDS ORDERED: levoFLOXacin 750 mg in D5W 750 MG/150 ML BAG IVPB SCH (09:00)
--- NOTE | 2018-07-12 09:20 | CP.PCM.CON ---
History of Present Illness - History of Present Illness History of Present Illness: tthis 58-year-old female was brought to the emergency room by emergency ophthalmic medical technician after being found unresponsive. She had received 2 doses of Narcan prior to her examination by the admitting physician and still was barely responsive to loud calling. The patient has been seen at this hospital for bipolar disorder and multiple substance abuse and overdoses. Physical examination shows a middle aged female who responds to painful stimuli by moving her left extremities. she was afebrile and was breathing at extreme breaths per minute Her heart rate was 74 bpm regular and her blood pressure was 114/70 mmHg. Her jugular venous pressure was not elevated and there was no edema over her lower extremities. The pedal pulses were well felt. There was no carotid bruit. The apex was not palpable the first and second heart sounds were normal. There was no murmur or gallop. There were no rales. Her abdomen was soft and liver and spleen are not palpable. Her electrocardiogram showed sinus rhythm with no evidence of ischemic ST abnormalities or Q waves. her electrocardiogram this morning was normal. Her lab data shows markedly elevated UN and creatinine which on 04 of July were within normal limits. Her troponin levels were elevated from the time of her arrival in the emergency room. Impression: altered mental status probably secondary to drug over Dose. aacute kidney injury with elevated troponin levels probably secondary to rhabdomyolysis area ??right hemiparesis.. I have alerted the nurses and the admitting physician to the finding of possible right hemiparesis. I have requested CK level for possible rhabdomyolysis. at this juncture the patient is hemodynamically stable. Past Patient History - Infectious Disease Hx of Infectious Diseases: None - Past Medical History & Family History Past Medical History?: Yes - Past Social History Smoking Status: UNKNOWN - CARDIAC Hx Atrial Fibrillation: No Hx Cardia Arrhythmia: No Hx Congestive Heart Failure: No Hx Hypercholesterolemia: Yes Hx Hypertension: Yes Hx Mitral Valve Prolapse: Yes Hx Pacemaker: No Hx Peripheral Edema: No - PULMONARY Hx Asthma: Yes Hx Bronchitis: Yes Hx Chronic Obstructive Pulmonary Disease (COPD): Yes Hx Emphysema: No Hx Pneumonia: No Hx Pulmonary Embolism: No Hx Sleep Apnea: No - NEUROLOGICAL Hx Seizures: Yes Hx Transient Ischemic Attacks (TIA): No - HEENT Hx HEENT Problems: No - RENAL Hx Chronic Kidney Disease: No - ENDOCRINE/METABOLIC Hx Endocrine Disorders: No - HEMATOLOGICAL/ONCOLOGICAL Hx Anemia: Yes Hx Human Immunodeficiency Virus (HIV): Yes Hx Sickle Cell Disease: No - INTEGUMENTARY Hx Dermatological Problems: No - MUSCULOSKELETAL/RHEUMATOLOGICAL Hx Musculoskeletal Disorders: No Hx Falls: Yes - GASTROINTESTINAL Hx Gastrointestinal Disorders: No - GENITOURINARY/GYNECOLOGICAL Hx Sexually Transmitted Disorders: No (Patient denied) - PSYCHIATRIC Hx Anxiety: Yes Hx Bipolar Disorder: Yes Hx Depression: Yes Hx Paranoia: Yes Hx Substance Use: Yes - SURGICAL HISTORY Hx Tonsillectomy: Yes - ANESTHESIA Hx Anesthesia: Yes Hx Anesthesia Reactions: No Hx Malignant Hyperthermia: No Meds Allergies/Adverse Reactions: Allergies Allergy/AdvReac Type Severity Reaction Status Date / Time Penicillins Allergy pt reports Verified 07/03/18 08:00 seizures - Medications Medications: Current Medications Acetaminophen (Tylenol 325mg Tab) 650 mg PO Q6 PRN PRN Reason: Fever >100.4 F Albuterol/Ipratropium (Duoneb 3 Mg/0.5 Mg (3 Ml) Ud) 3 ml INH RQ4 PRN PRN Reason: Shortness of Breath Last Admin: 07/11/18 23:01 Dose: 3 ml Aspirin (Aspirin Supp) 300 mg VT DAILY [facility] Last Admin: 07/12/18 08:53 Dose: 300 mg Dextrose (Dextrose 50% Inj) 0 ml IV STAT PRN; Protocol PRN Reason: Hypoglycemia Protocol Dextrose (Glutose 15) 0 gm PO ONCE PRN; Protocol PRN Reason: Hypoglycemia Protocol Glucagon (Glucagen Diagnostic Kit) 0 mg IM STAT PRN; Protocol PRN Reason: Hypoglycemia Protocol Levofloxacin/Dextrose (Levaquin 750mg) 750 mg in 150 mls @ 100 mls/hr IVPB Q48H [facility] Sodium Bicarbonate 150 meq/ (Dextrose/Sodium Chloride) 1,150 mls @ 100 mls/hr IV .[id number] [facility] Stop: 07/12/18 13:44 Last Admin: 07/12/18 02:56 Dose: 100 mls/hr Insulin Human Regular (Humulin R) 0 units SC ACHS [facility]; Protocol Last Admin: 07/12/18 08:23 Dose: Not Given Results - Vital Signs Recent Vital Signs: Last Vital Signs Temp 98.1 F 07/12/18 08:00 Pulse 85 07/12/18 08:00 Resp 20 07/12/18 08:00 BP 111/59 L 12/27/18 08:00 Pulse Ox 97 07/12/18 08:00 - Labs Result Diagrams: 07/12/18 04:27 07/12/18 04:27 Labs: Laboratory Results - last 24 hr 07/11/18 07/11/18 07/11/18 11:56 12:49 12:49 WBC 4.9 D RBC 5.00 Hgb 13.5 Hct 42.7 MCV 85.4 D MCH 27.1 MCHC 31.7 L RDW 17.3 H Plt Count 154 MPV 9.2 Neut % (Auto) 81.2 H Lymph % (Auto) 10.6 L Emery % (Auto) 7.9 Eos % (Auto) 0.0 Baso % (Auto) 0.3 Neut # (Auto) 4.0 Lymph # (Auto) 0.5 L Emery # (Auto) 0.4 Eos # (Auto) 0.0 Baso # (Auto) 0.0 Neutrophils % (Manual) Lymphocytes % (Manual) Monocytes % (Manual) Platelet Estimate Anisocytosis (manual) PT INR APTT pCO2 pO2 HCO3 ABG pH ABG Total CO2 ABG O2 Saturation ABG O2 Content ABG Base Excess ABG Hemoglobin ABG Carboxyhemoglobin POC ABG HHb (Measured) ABG Methemoglobin ABG O2 Capacity Bob Test ABG Potassium A-a O2 Difference Hgb O2 Saturation Glucose Lactate Vent Mode FiO2 Crit Value Called To Crit Value Called By Crit Value Read Back Blood Gas Notified Time Sodium 138 Potassium 6.5 H* D Chloride 101 Carbon Dioxide 26 Anion Gap 18 BUN 41 H Creatinine 2.7 H Est GFR ( Amer) 22 Est GFR (Non-Af Amer) 18 POC Glucose (mg/dL) 157 H Random Glucose 133 H Calcium 8.6 Total Bilirubin Direct Bilirubin AST ALT Alkaline Phosphatase Ammonia Total Creatine Kinase Troponin I Total Protein Albumin Globulin Albumin/Globulin Ratio Arterial Blood Potassium Urine Color Urine Clarity Urine pH Ur Specific [place] Urine Protein Urine Glucose (UA) Urine Ketones Urine Blood Urine Nitrate Urine Bilirubin Urine Urobilinogen Ur Leukocyte Esterase Urine RBC (Auto) Urine Microscopic WBC Ur Squamous Epith Cells Urine Bacteria Hyaline Casts Ur Random Sodium Ur Random Potassium Urine Opiates Screen Urine Methadone Screen Ur Barbiturates Screen Ur Phencyclidine Scrn Ur Amphetamines Screen U Benzodiazepines Scrn U Oth Cocaine Metabols U Cannabinoids Screen Alcohol, Quantitative < 10 Influenza Typ A,B (EIA) 07/11/18 07/11/18 07/11/18 12:49 14:06 14:51 WBC RBC Hgb Hct MCV MCH MCHC RDW Plt Count MPV Neut % (Auto) Lymph % (Auto) Emery % (Auto) Eos % (Auto) Baso % (Auto) Neut # (Auto) Lymph # (Auto) Emery # (Auto) Eos # (Auto) Baso # (Auto) Neutrophils % (Manual) Lymphocytes % (Manual) Monocytes % (Manual) Platelet Estimate Anisocytosis (manual) PT INR APTT pCO2 pO2 HCO3 ABG pH ABG Total CO2 ABG O2 Saturation ABG O2 Content ABG Base Excess ABG Hemoglobin ABG Carboxyhemoglobin POC ABG HHb (Measured) ABG Methemoglobin ABG O2 Capacity Bob Test ABG Potassium A-a O2 Difference Hgb O2 Saturation Glucose Lactate Vent Mode FiO2 Crit Value Called To Crit Value Called By Crit Value Read Back Blood Gas Notified Time Sodium Potassium 5.7 H Chloride Carbon Dioxide Anion Gap BUN Creatinine Est GFR ( Amer) Est GFR (Non-Af Amer) POC Glucose (mg/dL) Random Glucose Calcium Total Bilirubin Direct Bilirubin AST ALT Alkaline Phosphatase Ammonia Total Creatine Kinase Troponin I Total Protein Albumin Globulin Albumin/Globulin Ratio Arterial Blood Potassium Urine Color Urine Clarity Urine pH Ur Specific [place] Urine Protein Urine Glucose (UA) Urine Ketones Urine Blood Urine Nitrate Urine Bilirubin Urine Urobilinogen Ur Leukocyte Esterase Urine RBC (Auto) Urine Microscopic WBC Ur Squamous Epith Cells Urine Bacteria Hyaline Casts Ur Random Sodium Ur Random Potassium Urine Opiates Screen Positive H Urine Methadone Screen Negative Ur Barbiturates Screen Negative Ur Phencyclidine Scrn Negative Ur Amphetamines Screen Negative U Benzodiazepines Scrn Positive U Oth Cocaine Metabols Negative U Cannabinoids Screen Negative Alcohol, Quantitative Influenza Typ A,B (EIA) Pos for influenza a H 07/11/18 07/11/18 07/11/18 15:17 18:54 18:54 WBC RBC Hgb Hct MCV MCH MCHC RDW Plt Count MPV Neut % (Auto) Lymph % (Auto) Emery % (Auto) Eos % (Auto) Baso % (Auto) Neut # (Auto) Lymph # (Auto) Emery # (Auto) Eos # (Auto) Baso # (Auto) Neutrophils % (Manual) Lymphocytes % (Manual) Monocytes % (Manual) Platelet Estimate Anisocytosis (manual) PT INR APTT pCO2 61 H pO2 101 H HCO3 19.8 L ABG pH 7.18 L* ABG Total CO2 24.7 ABG O2 Saturation 98.3 H ABG O2 Content ABG Base Excess -6.5 L ABG Hemoglobin ABG Carboxyhemoglobin POC ABG HHb (Measured) ABG Methemoglobin ABG O2 Capacity Bob Test Yes ABG Potassium 4.6 A-a O2 Difference 536.0 Hgb O2 Saturation Glucose 312 H Lactate 0.9 Vent Mode Nrm FiO2 100.0 Crit Value Called To Dr galilea correia Crit Value Called By 6058 Crit Value Read Back Y Blood Gas Notified Time 1527 Sodium 134.0 Potassium Chloride 103.0 Carbon Dioxide Anion Gap BUN Creatinine Est GFR ( Amer) Est GFR (Non-Af Amer) POC Glucose (mg/dL) Random Glucose Calcium Total Bilirubin Direct Bilirubin AST ALT Alkaline Phosphatase Ammonia Total Creatine Kinase Troponin I Total Protein Albumin Globulin Albumin/Globulin Ratio Arterial Blood Potassium 4.6 Urine Color Dark yellow Urine Clarity Cloudy Urine pH 5.0 Ur Specific [place] 1.017 Urine Protein >=300 Urine Glucose (UA) Neg Urine Ketones Negative Urine Blood Moderate Urine Nitrate Negative Urine Bilirubin Negative Urine Urobilinogen 0.2-1.0 Ur Leukocyte Esterase Trace Urine RBC (Auto) 13 H Urine Microscopic WBC 9 H Ur Squamous Epith Cells 1 Urine Bacteria Occ H Hyaline Casts 0-2 Ur Random Sodium 27 Ur Random Potassium 81.9 Urine Opiates Screen Urine Methadone Screen Ur Barbiturates Screen Ur Phencyclidine Scrn Ur Amphetamines Screen U Benzodiazepines Scrn U Oth Cocaine Metabols U Cannabinoids Screen Alcohol, Quantitative Influenza Typ A,B (EIA) 07/11/18 07/11/18 07/11/18 19:12 19:28 19:52 WBC RBC Hgb Hct MCV MCH MCHC RDW Plt Count MPV Neut % (Auto) Lymph % (Auto) Emery % (Auto) Eos % (Auto) Baso % (Auto) Neut # (Auto) Lymph # (Auto) Emery # (Auto) Eos # (Auto) Baso # (Auto) Neutrophils % (Manual) Lymphocytes % (Manual) Monocytes % (Manual) Platelet Estimate Anisocytosis (manual) PT 11.5 INR 1.0 APTT 28.9 pCO2 pO2 HCO3 ABG pH ABG Total CO2 ABG O2 Saturation ABG O2 Content ABG Base Excess ABG Hemoglobin ABG Carboxyhemoglobin POC ABG HHb (Measured) ABG Methemoglobin ABG O2 Capacity Bob Test ABG Potassium A-a O2 Difference Hgb O2 Saturation Glucose Lactate Vent Mode FiO2 Crit Value Called To Crit Value Called By Crit Value Read Back Blood Gas Notified Time Sodium Potassium Chloride Carbon Dioxide Anion Gap BUN Creatinine Est GFR ( Amer) Est GFR (Non-Af Amer) POC Glucose (mg/dL) 54 L Random Glucose Calcium Total Bilirubin 0.2 Direct Bilirubin 0.2 AST 74 H D ALT 44 Alkaline Phosphatase 58 Ammonia Total Creatine Kinase 1062 H Troponin I 3.1800 H* Total Protein 7.3 Albumin 3.4 L Globulin 3.9 Albumin/Globulin Ratio 0.9 L Arterial Blood Potassium Urine Color Urine Clarity Urine pH Ur Specific [place] Urine Protein Urine Glucose (UA) Urine Ketones Urine Blood Urine Nitrate Urine Bilirubin Urine Urobilinogen Ur Leukocyte Esterase Urine RBC (Auto) Urine Microscopic WBC Ur Squamous Epith Cells Urine Bacteria Hyaline Casts Ur Random Sodium Ur Random Potassium Urine Opiates Screen Urine Methadone Screen Ur Barbiturates Screen Ur Phencyclidine Scrn Ur Amphetamines Screen U Benzodiazepines Scrn U Oth Cocaine Metabols U Cannabinoids Screen Alcohol, Quantitative Influenza Typ A,B (EIA) 07/11/18 07/12/18 07/12/18 21:28 00:17 00:30 WBC RBC Hgb Hct MCV MCH MCHC RDW Plt Count MPV Neut % (Auto) Lymph % (Auto) Emery % (Auto) Eos % (Auto) Baso % (Auto) Neut # (Auto) Lymph # (Auto) Emery # (Auto) Eos # (Auto) Baso # (Auto) Neutrophils % (Manual) Lymphocytes % (Manual) Monocytes % (Manual) Platelet Estimate Anisocytosis (manual) PT INR APTT pCO2 56 H pO2 82 HCO3 19.7 L ABG pH 7.20 L ABG Total CO2 23.6 ABG O2 Saturation 96.0 ABG O2 Content 16.6 ABG Base Excess -6.6 L ABG Hemoglobin 12.5 ABG Carboxyhemoglobin 1.0 POC ABG HHb (Measured) 3.9 ABG Methemoglobin 1.3 ABG O2 Capacity 17.3 Bob Test Yes ABG Potassium A-a O2 Difference 561.0 Hgb O2 Saturation 93.8 L Glucose Lactate Vent Mode FiO2 100.0 Crit Value Called To Crit Value Called By Crit Value Read Back Blood Gas Notified Time Sodium 139 Potassium 4.1 Chloride 110 H Carbon Dioxide 22 Anion Gap 11 BUN 42 H Creatinine 2.1 H Est GFR ( Amer) 29 Est GFR (Non-Af Amer) 24 POC Glucose (mg/dL) 100 Random Glucose 100 Calcium 7.9 L Total Bilirubin 0.3 Direct Bilirubin AST 93 H D ALT 44 Alkaline Phosphatase 69 Ammonia Total Creatine Kinase 1332 H Troponin I 3.6000 H* Total Protein 7.8 Albumin 3.6 Globulin 4.2 H Albumin/Globulin Ratio 0.9 L Arterial Blood Potassium Urine Color Urine Clarity Urine pH Ur Specific [place] Urine Protein Urine Glucose (UA) Urine Ketones Urine Blood Urine Nitrate Urine Bilirubin Urine Urobilinogen Ur Leukocyte Esterase Urine RBC (Auto) Urine Microscopic WBC Ur Squamous Epith Cells Urine Bacteria Hyaline Casts Ur Random Sodium Ur Random Potassium Urine Opiates Screen Urine Methadone Screen Ur Barbiturates Screen Ur Phencyclidine Scrn Ur Amphetamines Screen U Benzodiazepines Scrn U Oth Cocaine Metabols U Cannabinoids Screen Alcohol, Quantitative Influenza Typ A,B (EIA) 07/12/18 07/12/18 07/12/18 00:47 04:27 04:27 WBC 5.4 RBC 4.63 Hgb 12.6 Hct 40.2 MCV 86.7 MCH 27.1 MCHC 31.3 L RDW 17.7 H Plt Count 116 L D MPV 9.3 Neut % (Auto) 83.4 H Lymph % (Auto) 8.7 L Emery % (Auto) 7.5 Eos % (Auto) 0.2 Baso % (Auto) 0.2 Neut # (Auto) 4.5 Lymph # (Auto) 0.5 L Emery # (Auto) 0.4 Eos # (Auto) 0.0 Baso # (Auto) 0.0 Neutrophils % (Manual) 80 H Lymphocytes % (Manual) 16 L Monocytes % (Manual) 4 Platelet Estimate Slightly decreased L Anisocytosis (manual) Slight PT INR APTT pCO2 pO2 HCO3 ABG pH ABG Total CO2 ABG O2 Saturation ABG O2 Content ABG Base Excess ABG Hemoglobin ABG Carboxyhemoglobin POC ABG HHb (Measured) ABG Methemoglobin ABG O2 Capacity Bob Test ABG Potassium A-a O2 Difference Hgb O2 Saturation Glucose Lactate Vent Mode FiO2 Crit Value Called To Crit Value Called By Crit Value Read Back Blood Gas Notified Time Sodium 141 Potassium 4.4 Chloride 110 H Carbon Dioxide 23 Anion Gap 12 BUN 44 H Creatinine 2.1 H Est GFR ( Amer) 29 Est GFR (Non-Af Amer) 24 POC Glucose (mg/dL) 103 Random Glucose 113 H Calcium 7.9 L Total Bilirubin 0.3 Direct Bilirubin AST 98 H ALT 51 Alkaline Phosphatase 64 Ammonia Total Creatine Kinase 1359 H Troponin I Total Protein 7.5 Albumin 3.4 L Globulin 4.1 H Albumin/Globulin Ratio 0.8 L Arterial Blood Potassium Urine Color Urine Clarity Urine pH Ur Specific [place] Urine Protein Urine Glucose (UA) Urine Ketones Urine Blood Urine Nitrate Urine Bilirubin Urine Urobilinogen Ur Leukocyte Esterase Urine RBC (Auto) Urine Microscopic WBC Ur Squamous Epith Cells Urine Bacteria Hyaline Casts Ur Random Sodium Ur Random Potassium Urine Opiates Screen Urine Methadone Screen Ur Barbiturates Screen Ur Phencyclidine Scrn Ur Amphetamines Screen U Benzodiazepines Scrn U Oth Cocaine Metabols U Cannabinoids Screen Alcohol, Quantitative Influenza Typ A,B (EIA) 07/12/18 07/12/18 07/12/18 04:27 05:37 05:46 WBC RBC Hgb Hct MCV MCH MCHC RDW Plt Count MPV Neut % (Auto) Lymph % (Auto) Emery % (Auto) Eos % (Auto) Baso % (Auto) Neut # (Auto) Lymph # (Auto) Emery # (Auto) Eos # (Auto) Baso # (Auto) Neutrophils % (Manual) Lymphocytes % (Manual) Monocytes % (Manual) Platelet Estimate Anisocytosis (manual) PT INR APTT pCO2 pO2 HCO3 ABG pH ABG Total CO2 ABG O2 Saturation ABG O2 Content ABG Base Excess ABG Hemoglobin ABG Carboxyhemoglobin POC ABG HHb (Measured) ABG Methemoglobin ABG O2 Capacity Bob Test ABG Potassium A-a O2 Difference Hgb O2 Saturation Glucose Lactate Vent Mode FiO2 Crit Value Called To Crit Value Called By Crit Value Read Back Blood Gas Notified Time Sodium Potassium Chloride Carbon Dioxide Anion Gap BUN Creatinine Est GFR ( Amer) Est GFR (Non-Af Amer) POC Glucose (mg/dL) 122 H Random Glucose Calcium Total Bilirubin Direct Bilirubin AST ALT Alkaline Phosphatase Ammonia 36 D Total Creatine Kinase Troponin I 3.5100 H* Total Protein Albumin Globulin Albumin/Globulin Ratio Arterial Blood Potassium Urine Color Urine Clarity Urine pH Ur Specific [place] Urine Protein Urine Glucose (UA) Urine Ketones Urine Blood Urine Nitrate Urine Bilirubin Urine Urobilinogen Ur Leukocyte Esterase Urine RBC (Auto) Urine Microscopic WBC Ur Squamous Epith Cells Urine Bacteria Hyaline Casts Ur Random Sodium Ur Random Potassium Urine Opiates Screen Urine Methadone Screen Ur Barbiturates Screen Ur Phencyclidine Scrn Ur Amphetamines Screen U Benzodiazepines Scrn U Oth Cocaine Metabols U Cannabinoids Screen Alcohol, Quantitative Influenza Typ A,B (EIA)
[2018-07-12] MEDS ORDERED: Etomidate 20 mg/10ml Inj IV ONE ×2 (09:38)
[2018-07-12 11:39] LABS: ABG ALLEN TEST YES; ARTERIAL BLOOD GAS HEMOGLOBIN 11.8 g/dL (11.7-17.4); ARTERIAL BLOOD GAS O2 CAPACITY 16.4 mL/dL (16-24); ARTERIAL BLOOD GAS O2 CONTENT 15.9 ML/dL (15-23); ARTERIAL BLOOD GAS O2 SAT 96.9 % (95-98); ARTERIAL BLOOD GAS PCO2 46 mm/Hg (35-45); ARTERIAL BLOOD GAS PH 7.36 (7.35-7.45); ARTERIAL BLOOD GAS PO2 81 mm/Hg (80-100); ARTERIAL BLOOD GAS TCO2 27.4 mmol/L (22-28)
[2018-07-12] MEDS: Midazolam 2 MG/2 ML VIAL IV PRN (11:57)
[2018-07-12 12:17] LABS: HEPATITIS B SURFACE AG Negative (NEGATIVE)
--- NOTE | 2018-07-12 12:17 | RAD ---
Date of service: 07/12/2018 HISTORY: Intubated. COMPARISON: July 11, 2018. FINDINGS: LUNGS: Interval improvement in dense consolidative changes the right lower lobe and right middle lobe seen previously. Stable consolidative changes left lower lobe. PLEURA: No significant pleural effusion identified, no pneumothorax apparent. CARDIOVASCULAR: No atherosclerotic calcification present No radiographic findings to suggest acute or significant cardiovascular disease. OSSEOUS STRUCTURES: No significant abnormalities. VISUALIZED UPPER ABDOMEN: Normal. OTHER FINDINGS: Satisfactory position of recently placed support apparatus including nasogastric tube and endotracheal tube. IMPRESSION: Improved aeration right lung. Satisfactory position of recently placed support apparatus.
[2018-07-12 12:22] LABS: HEPATITIS A IGM NEGATIVE (NEGATIVE); HEPATITIS B CORE AB NEGATIVE (NEGATIVE)
--- NOTE | 2018-07-12 12:36 | CP.PCM.CON ---
History of Present Illness - History of Present Illness History of Present Illness: 58 y/o F with PMhx of HIV, Substance abuse, Asthma, bipolar disorder, Hep C presented to ED via EMS after being found unconscious. Per ED doctor pt received Narcan x1 form EMS Evaluation for AMS included septic work up and flu screen Also found to have Rhabdo with JOE and + troponins In addition was found to be + for influenza and also diagnosed with CVA / right hemiparesis currently awake on vent responsive moving left side MRI Head pending Per Records: PMH: HIV, HCV, polysubstance abuse, bipolar disorder, Asthma, HTN, seizure disorder Medications: see bellow Allergies: PCN Surgical hx: denies Social: +benzodiazepenes, denies heroin, marijuana, cocaine, tobacco recently. Hx of heroin abuse Family hx: unknown Review of Systems - Review of Systems Systems not reviewed;Unavailable: Altered Mental Status, Intubated - Constitutional Constitutional: As Per HPI - EENT Eyes: absent: As Per HPI, Blind Spots, Blurred Vision, Change in Vision, D ecreased Night Vision, Diplopia, Discharge, Dry Eye, Exophthalmos, Floaters, Irritation, Itchy Eyes, Loss of Peripheral Vision, Pain, Photophobia, Requires Corrective Lenses, Sees Flashes, Spots in Vision, Tunnel Vision, Other Visual Disturbances, Loss of Vision, Other Ears: absent: As Per HPI, Decreased Hearing, Ear Discharge, Ear Pain, Tinnitus, Abnormal Hearing, Disequilibrium, Dizziness, Other Nose/Mouth/Throat: absent: As Per HPI, Epistaxis, Nasal Congestion, Nasal Discharge, Nasal Obstruction, Nasal Trauma, Nose Pain, Post Nasal Drip, Sinus Pain, Sinus Pressure, Bleeding Gums, Change in Voice, Dental Pain, Dry Mouth, Dysphagia, Halitosis, Hoarsness, Lip Swelling, Mouth Lesions, Mouth Pain, Odynophagia, Sore Throat, Throat Swelling, Tongue Swelling, Facial Pain, Neck Pain, Neck Mass, Other - Breasts Breasts: absent: As Per HPI, Change in Shape, Mass, Pain, Nipple Discharge, Nipple Inversion, Skin Changes, Swelling, Other - Cardiovascular Cardiovascular: As Per HPI - Respiratory Respiratory: As Per HPI - Genitourinary Genitourinary: absent: As Per HPI, Change in Urinary Stream, Difficulty Urinating, Dysuria, Flank Pain, Hematuria, Pyuria, Nocturia, Urinary Incontinence, Urinary Frequency, Urinary Hesitance, Urinary Urgency, Voiding Freq/Small Amts, Freq UTI, Hx Renal/Bladder Calculi, Hx /Renal Surgery, Bladder Distension, Other - Reproductive: Female Reproductive:Female: absent: As Per HPI, Amenorrhea, Amenorrhea/ Control, Currently Menstual, Cycle <21 Days, Cycle >35 Days, Cycle Variable, Menses 1-7 Days, Menses >/= 8 Days, Menses Variable, Cycle > 4 Weeks Between, No Menses for 6 Months, Heavy Menses, Light Menses, Normal Menses, Spotting Between Cycles, S/P Hysterectomy, Menopausal, Post Menopausal, Premenarche, Abnormal Vaginal Bleeding, Dysmenorrhea, Dyspareunia, Genital Lesions, Genital Pruritis, Pelvic Pain, Prolapse Symptoms, Sexual Dysfunction, Vaginal Discharge, Vaginal Dryness, Vaginal Odor, Vaginal Pruritis, Other - Menstruation Menstruation: absent: As Per HPI, Amenorrhea, Amenorrhea/ Control, Currently Menstual, Cycle <21 Days, Cycle >35 Days, Cycle Variable, Menses 1-7 Days, Menses >/= 8 Days, Menses Variable, Cycle > 4 Weeks Between, No Menses for 6 Months, Heavy Menses, Light Menses, Normal Menses, Spotting Between Cycles, S/P Hysterectomy, Menopausal, Post Menopausal, Premenarche, Abnormal Vaginal Bleeding, Dysmenorrhea, Other - Musculoskeletal Musculoskeletal: As Per HPI - Integumentary Integumentary: absent: As Per HPI, Acne, Alopecia, Bleeding Lesions, Change in Hair, Change in Nails, Change in Pigmentation, Changing Lesions, Dry Skin, Erythema, Furuncle, Hirsutism, Lesions, New Lesions, Non-Healing Lesions, Photosensitivity, Pruritus, Rash, Skin Pain, Skin Ulcer, Sores, Striae, Swelling, Unusual Bruising, Wounds, Jaundice, Other - Neurological Neurological: As Per HPI - Psychiatric Psychiatric: As Per HPI - Endocrine Endocrine: absent: As Per HPI, Change in Body Appearance, Change in Libido, Cold Intolorance, Deepening of Voice, Excessive Sweating, Fatigue, Flushing, Heat Intolorance, Increase in Ring/Shoe/Hat Size, Palpitations, Polydipsia, Polyphagia, Polyuria, Other - Hematologic/Lymphatic Hematologic: absent: As Per HPI, Easy Bleeding, Easy Bruising, Lymphadenopathy, Other Past Patient History - Infectious Disease Hx of Infectious Diseases: None - Past Medical History & Family History Past Medical History?: Yes - Past Social History Smoking Status: UNKNOWN - CARDIAC Hx Atrial Fibrillation: No Hx Cardia Arrhythmia: No Hx Congestive Heart Failure: No Hx Hypercholesterolemia: Yes Hx Hypertension: Yes Hx Mitral Valve Prolapse: Yes Hx Pacemaker: No Hx Peripheral Edema: No - PULMONARY Hx Asthma: Yes Hx Bronchitis: Yes Hx Chronic Obstructive Pulmonary Disease (COPD): Yes Hx Emphysema: No Hx Pneumonia: No Hx Pulmonary Embolism: No Hx Sleep Apnea: No - NEUROLOGICAL Hx Seizures: Yes Hx Transient Ischemic Attacks (TIA): No - HEENT Hx HEENT Problems: No - RENAL Hx Chronic Kidney Disease: No - ENDOCRINE/METABOLIC Hx Endocrine Disorders: No - HEMATOLOGICAL/ONCOLOGICAL Hx Anemia: Yes Hx Human Immunodeficiency Virus (HIV): Yes Hx Sickle Cell Disease: No - INTEGUMENTARY Hx Dermatological Problems: No - MUSCULOSKELETAL/RHEUMATOLOGICAL Hx Musculoskeletal Disorders: No Hx Falls: Yes - GASTROINTESTINAL Hx Gastrointestinal Disorders: No - GENITOURINARY/GYNECOLOGICAL Hx Sexually Transmitted Disorders: No (Patient denied) - PSYCHIATRIC Hx Anxiety: Yes Hx Bipolar Disorder: Yes Hx Depression: Yes Hx Paranoia: Yes Hx Substance Use: Yes - SURGICAL HISTORY Hx Tonsillectomy: Yes - ANESTHESIA Hx Anesthesia: Yes Hx Anesthesia Reactions: No Hx Malignant Hyperthermia: No Meds Allergies/Adverse Reactions: Allergies Allergy/AdvReac Type Severity Reaction Status Date / Time Penicillins Allergy pt reports Verified 07/03/18 08:00 seizures - Medications Medications: Current Medications Acetaminophen (Tylenol 325mg Tab) 650 mg PO Q6 PRN PRN Reason: Fever >100.4 F Albuterol/Ipratropium (Duoneb 3 Mg/0.5 Mg (3 Ml) Ud) 3 ml INH RQ4 PRN PRN Reason: Shortness of Breath Last Admin: 07/11/18 23:01 Dose: 3 ml Aspirin (Aspirin Chewable) 81 mg PO DAILY [facility] [place] Dextrose (Dextrose 50% Inj) 0 ml IV STAT PRN; Protocol PRN Reason: Hypoglycemia Protocol Dextrose (Glutose 15) 0 gm PO ONCE PRN; Protocol PRN Reason: Hypoglycemia Protocol Dolutegravir Sodium (Tivicay) 50 mg PO DAILY [facility]; Protocol Emtricitabine/Tenofovir (Truvada 200 Mg-300 Mg) 1 tab PO DAILY [facility]; Protocol Enoxaparin Sodium (Lovenox) 30 mg SC DAILY [facility] [place]; Protocol Glucagon (Glucagen Diagnostic Kit) 0 mg IM STAT PRN; Protocol PRN Reason: Hypoglycemia Protocol Levofloxacin/Dextrose (Levaquin 750mg) 750 mg in 150 mls @ 100 mls/hr IVPB Q48H [facility] [place] Sodium Bicarbonate 150 meq/ (Dextrose/Sodium Chloride) 1,150 mls @ 100 mls/hr IV .[id number] [facility] [place] Stop: 07/12/18 13:44 Last Admin: 07/12/18 02:56 Dose: 100 mls/hr Lactated Ringer's (Lactated Ringer's) 1,000 mls @ 75 mls/hr IV .[id number] [facility] [place] Insulin Human Regular (Humulin R) 0 units SC ACHS [facility] [place]; Protocol Last Admin: 07/12/18 08:23 Dose: Not Given Midazolam HCl (Versed Inj) 2 mg IV Q6 PRN PRN Reason: Agitation Last Admin: 07/12/18 11:57 Dose: 2 mg Oseltamivir Phosphate (Tamiflu Cap) 75 mg PO BID [facility] [place]; Protocol Last Admin: 07/12/18 12:00 Dose: 75 mg Pantoprazole Sodium (Protonix Ec Tab) 40 mg PO DAILY [facility] [place] Physical Exam - Constitutional Appears: Confused, Chronically Ill - Head Exam Head Exam: ATRAUMATIC, NORMAL INSPECTION, NORMOCEPHALIC - Eye Exam Eye Exam: PERRL. absent: Scleral icterus - ENT Exam ENT Exam: Mucous Membranes Dry - Neck Exam Neck exam: Negative for: Lymphadenopathy - Respiratory Exam Respiratory Exam: Decreased Breath Sounds, Rhonchi - Cardiovascular Exam Cardiovascular Exam: REGULAR RHYTHM, +S1, +S2 - GI/Abdominal Exam GI & Abdominal Exam: Diminished Bowel Sounds, Soft. absent: Tenderness - Rectal Exam Rectal Exam: Deferred - Exam Exam: NORMAL INSPECTION - Extremities Exam Extremities exam: Positive for: pedal pulses present. Negative for: calf tenderness, pedal edema - Back Exam Back exam: absent: CVA tenderness (L), CVA tenderness (R), paraspinal tenderness - Neurological Exam Neurological exam: Altered Additional comments: right sided weakness - Psychiatric Exam Psychiatric exam: Depressed - Skin Skin Exam: Dry Results - Vital Signs Recent Vital Signs: Last Vital Signs Temp 98.1 F 07/12/18 08:00 Pulse 85 07/12/18 08:00 Resp 20 07/12/18 08:00 BP 111/59 L 07/12/18 08:00 Pulse Ox 97 07/12/18 08:00 - Labs Result Diagrams: 07/12/18 04:27 07/12/18 04:27 Labs: Laboratory Results - last 24 hr 07/11/18 07/11/18 07/11/18 11:56 12:49 12:49 WBC 4.9 D RBC 5.00 Hgb 13.5 Hct 42.7 MCV 85.4 D MCH 27.1 MCHC 31.7 L RDW 17.3 H Plt Count 154 MPV 9.2 Neut % (Auto) 81.2 H Lymph % (Auto) 10.6 L [place] % (Auto) 7.9 Eos % (Auto) 0.0 Baso % (Auto) 0.3 Neut # (Auto) 4.0 Lymph # (Auto) 0.5 L [place] # (Auto) 0.4 Eos # (Auto) 0.0 Baso # (Auto) 0.0 Neutrophils % (Manual) Lymphocytes % (Manual) Monocytes % (Manual) Platelet Estimate Anisocytosis (manual) PT INR APTT pCO2 pO2 HCO3 ABG pH ABG Total CO2 ABG O2 Saturation ABG O2 Content ABG Base Excess ABG Hemoglobin ABG Carboxyhemoglobin POC ABG HHb (Measured) ABG Methemoglobin ABG O2 Capacity Bob Test ABG Potassium A-a O2 Difference Hgb O2 Saturation Glucose Lactate Vent Mode Mechanical Rate FiO2 Tidal Volume PEEP Crit Value Called To Crit Value Called By Crit Value Read Back Blood Gas Notified Time Sodium 138 Potassium 6.5 H* D Chloride 101 Carbon Dioxide 26 Anion Gap 18 BUN 41 H Creatinine 2.7 H Est GFR ( Amer) 22 Est GFR (Non-Af Amer) 18 POC Glucose (mg/dL) 157 H Random Glucose 133 H Calcium 8.6 Total Bilirubin Direct Bilirubin AST ALT Alkaline Phosphatase Ammonia Total Creatine Kinase Troponin I Total Protein Albumin Globulin Albumin/Globulin Ratio Prolactin Arterial Blood Potassium Urine Color Urine Clarity Urine pH Ur Specific [place] Urine Protein Urine Glucose (UA) Urine Ketones Urine Blood Urine Nitrate Urine Bilirubin Urine Urobilinogen Ur Leukocyte Esterase Urine RBC (Auto) Urine Microscopic WBC Ur Squamous Epith Cells Urine Bacteria Hyaline Casts Ur Random Sodium Ur Random Potassium Urine Opiates Screen Urine Methadone Screen Ur Barbiturates Screen Ur Phencyclidine Scrn Ur Amphetamines Screen U Benzodiazepines Scrn U Oth Cocaine Metabols U Cannabinoids Screen Alcohol, Quantitative < 10 Hepatitis A IgM Ab Hep Bs Antigen Hep B Core IgM Ab Influenza Typ A,B (EIA) 07/11/18 07/11/18 07/11/18 12:49 14:06 14:51 WBC RBC Hgb Hct MCV MCH MCHC RDW Plt Count MPV Neut % (Auto) Lymph % (Auto) [place] % (Auto) Eos % (Auto) Baso % (Auto) Neut # (Auto) Lymph # (Auto) [place] # (Auto) Eos # (Auto) Baso # (Auto) Neutrophils % (Manual) Lymphocytes % (Manual) Monocytes % (Manual) Platelet Estimate Anisocytosis (manual) PT INR APTT pCO2 pO2 HCO3 ABG pH ABG Total CO2 ABG O2 Saturation ABG O2 Content ABG Base Excess ABG Hemoglobin ABG Carboxyhemoglobin POC ABG HHb (Measured) ABG Methemoglobin ABG O2 Capacity Bob Test ABG Potassium A-a O2 Difference Hgb O2 Saturation Glucose Lactate Vent Mode Mechanical Rate FiO2 Tidal Volume PEEP Crit Value Called To Crit Value Called By Crit Value Read Back Blood Gas Notified Time Sodium Potassium 5.7 H Chloride Carbon Dioxide Anion Gap BUN Creatinine Est GFR ( Amer) Est GFR (Non-Af Amer) POC Glucose (mg/dL) Random Glucose Calcium Total Bilirubin Direct Bilirubin AST ALT Alkaline Phosphatase Ammonia Total Creatine Kinase Troponin I Total Protein Albumin Globulin Albumin/Globulin Ratio Prolactin Arterial Blood Potassium Urine Color Urine Clarity Urine pH Ur Specific [place] Urine Protein Urine Glucose (UA) Urine Ketones Urine Blood Urine Nitrate Urine Bilirubin Urine Urobilinogen Ur Leukocyte Esterase Urine RBC (Auto) Urine Microscopic WBC Ur Squamous Epith Cells Urine Bacteria Hyaline Casts Ur Random Sodium Ur Random Potassium Urine Opiates Screen Positive H Urine Methadone Screen Negative Ur Barbiturates Screen Negative Ur Phencyclidine Scrn Negative Ur Amphetamines Screen Negative U Benzodiazepines Scrn Positive U Oth Cocaine Metabols Negative U Cannabinoids Screen Negative Alcohol, Quantitative Hepatitis A IgM Ab Hep Bs Antigen Hep B Core IgM Ab Influenza Typ A,B (EIA) Pos for influenza a H 07/11/18 07/11/18 07/11/18 15:17 18:54 18:54 WBC RBC Hgb Hct MCV MCH MCHC RDW Plt Count MPV Neut % (Auto) Lymph % (Auto) [place] % (Auto) Eos % (Auto) Baso % (Auto) Neut # (Auto) Lymph # (Auto) [place] # (Auto) Eos # (Auto) Baso # (Auto) Neutrophils % (Manual) Lymphocytes % (Manual) Monocytes % (Manual) Platelet Estimate Anisocytosis (manual) PT INR APTT pCO2 61 H pO2 101 H HCO3 19.8 L ABG pH 7.18 L* ABG Total CO2 24.7 ABG O2 Saturation 98.3 H ABG O2 Content ABG Base Excess -6.5 L ABG Hemoglobin ABG Carboxyhemoglobin POC ABG HHb (Measured) ABG Methemoglobin ABG O2 Capacity Bob Test Yes ABG Potassium 4.6 A-a O2 Difference 536.0 Hgb O2 Saturation Glucose 312 H Lactate 0.9 Vent Mode Nrm Mechanical Rate FiO2 100.0 Tidal Volume PEEP Crit Value Called To Dr galilea correia Crit Value Called By 6004 Crit Value Read Back Y Blood Gas Notified Time 1527 Sodium 134.0 Potassium Chloride 103.0 Carbon Dioxide Anion Gap BUN Creatinine Est GFR ( Amer) Est GFR (Non-Af Amer) POC Glucose (mg/dL) Random Glucose Calcium Total Bilirubin Direct Bilirubin AST ALT Alkaline Phosphatase Ammonia Total Creatine Kinase Troponin I Total Protein Albumin Globulin Albumin/Globulin Ratio Prolactin Arterial Blood Potassium 4.6 Urine Color Dark yellow Urine Clarity Cloudy Urine pH 5.0 Ur Specific [place] 1.017 Urine Protein >=300 Urine Glucose (UA) Neg Urine Ketones Negative Urine Blood Moderate Urine Nitrate Negative Urine Bilirubin Negative Urine Urobilinogen 0.2-1.0 Ur Leukocyte Esterase Trace Urine RBC (Auto) 13 H Urine Microscopic WBC 9 H Ur Squamous Epith Cells 1 Urine Bacteria Occ H Hyaline Casts 0-2 Ur Random Sodium 27 Ur Random Potassium 81.9 Urine Opiates Screen Urine Methadone Screen Ur Barbiturates Screen Ur Phencyclidine Scrn Ur Amphetamines Screen U Benzodiazepines Scrn U Oth Cocaine Metabols U Cannabinoids Screen Alcohol, Quantitative Hepatitis A IgM Ab Hep Bs Antigen Hep B Core IgM Ab Influenza Typ A,B (EIA) 07/11/18 07/11/18 07/11/18 19:12 19:17 19:28 WBC RBC Hgb Hct MCV MCH MCHC RDW Plt Count MPV Neut % (Auto) Lymph % (Auto) [place] % (Auto) Eos % (Auto) Baso % (Auto) Neut # (Auto) Lymph # (Auto) [place] # (Auto) Eos # (Auto) Baso # (Auto) Neutrophils % (Manual) Lymphocytes % (Manual) Monocytes % (Manual) Platelet Estimate Anisocytosis (manual) PT 11.5 INR 1.0 APTT 28.9 pCO2 pO2 HCO3 ABG pH ABG Total CO2 ABG O2 Saturation ABG O2 Content ABG Base Excess ABG Hemoglobin ABG Carboxyhemoglobin POC ABG HHb (Measured) ABG Methemoglobin ABG O2 Capacity Bob Test ABG Potassium A-a O2 Difference Hgb O2 Saturation Glucose Lactate Vent Mode Mechanical Rate FiO2 Tidal Volume PEEP Crit Value Called To Crit Value Called By Crit Value Read Back Blood Gas Notified Time Sodium Potassium Chloride Carbon Dioxide Anion Gap BUN Creatinine Est GFR ( Amer) Est GFR (Non-Af Amer) POC Glucose (mg/dL) Random Glucose Calcium Total Bilirubin 0.2 Direct Bilirubin 0.2 AST 74 H D ALT 44 Alkaline Phosphatase 58 Ammonia Total Creatine Kinase 1062 H Troponin I 3.1800 H* Total Protein 7.3 Albumin 3.4 L Globulin 3.9 Albumin/Globulin Ratio 0.9 L Prolactin Arterial Blood Potassium Urine Color Urine Clarity Urine pH Ur Specific [place] Urine Protein Urine Glucose (UA) Urine Ketones Urine Blood Urine Nitrate Urine Bilirubin Urine Urobilinogen Ur Leukocyte Esterase Urine RBC (Auto) Urine Microscopic WBC Ur Squamous Epith Cells Urine Bacteria Hyaline Casts Ur Random Sodium Ur Random Potassium Urine Opiates Screen Urine Methadone Screen Ur Barbiturates Screen Ur Phencyclidine Scrn Ur Amphetamines Screen U Benzodiazepines Scrn U Oth Cocaine Metabols U Cannabinoids Screen Alcohol, Quantitative Hepatitis A IgM Ab Negative Hep Bs Antigen Negative Hep B Core IgM Ab Negative Influenza Typ A,B (EIA) 07/11/18 07/11/18 07/11/18 19:52 20:23 21:28 WBC RBC Hgb Hct MCV MCH MCHC RDW Plt Count MPV Neut % (Auto) Lymph % (Auto) [place] % (Auto) Eos % (Auto) Baso % (Auto) Neut # (Auto) Lymph # (Auto) [place] # (Auto) Eos # (Auto) Baso # (Auto) Neutrophils % (Manual) Lymphocytes % (Manual) Monocytes % (Manual) Platelet Estimate Anisocytosis (manual) PT INR APTT pCO2 pO2 HCO3 ABG pH ABG Total CO2 ABG O2 Saturation ABG O2 Content ABG Base Excess ABG Hemoglobin ABG Carboxyhemoglobin POC ABG HHb (Measured) ABG Methemoglobin ABG O2 Capacity Bob Test ABG Potassium A-a O2 Difference Hgb O2 Saturation Glucose Lactate Vent Mode Mechanical Rate FiO2 Tidal Volume PEEP Crit Value Called To Crit Value Called By Crit Value Read Back Blood Gas Notified Time Sodium Potassium Chloride Carbon Dioxide Anion Gap BUN Creatinine Est GFR ( Amer) Est GFR (Non-Af Amer) POC Glucose (mg/dL) 54 L 100 Random Glucose Calcium Total Bilirubin Direct Bilirubin AST ALT Alkaline Phosphatase Ammonia Total Creatine Kinase Troponin I Total Protein Albumin Globulin Albumin/Globulin Ratio Prolactin 26.3 H Arterial Blood Potassium Urine Color Urine Clarity Urine pH Ur Specific [place] Urine Protein Urine Glucose (UA) Urine Ketones Urine Blood Urine Nitrate Urine Bilirubin Urine Urobilinogen Ur Leukocyte Esterase Urine RBC (Auto) Urine Microscopic WBC Ur Squamous Epith Cells Urine Bacteria Hyaline Casts Ur Random Sodium Ur Random Potassium Urine Opiates Screen Urine Methadone Screen Ur Barbiturates Screen Ur Phencyclidine Scrn Ur Amphetamines Screen U Benzodiazepines Scrn U Oth Cocaine Metabols U Cannabinoids Screen Alcohol, Quantitative Hepatitis A IgM Ab Hep Bs Antigen Hep B Core IgM Ab Influenza Typ A,B (EIA) 07/12/18 07/12/18 07/12/18 00:17 00:30 00:47 WBC RBC Hgb Hct MCV MCH MCHC RDW Plt Count MPV Neut % (Auto) Lymph % (Auto) [place] % (Auto) Eos % (Auto) Baso % (Auto) Neut # (Auto) Lymph # (Auto) [place] # (Auto) Eos # (Auto) Baso # (Auto) Neutrophils % (Manual) Lymphocytes % (Manual) Monocytes % (Manual) Platelet Estimate Anisocytosis (manual) PT INR APTT pCO2 56 H pO2 82 HCO3 19.7 L ABG pH 7.20 L ABG Total CO2 23.6 ABG O2 Saturation 96.0 ABG O2 Content 16.6 ABG Base Excess -6.6 L ABG Hemoglobin 12.5 ABG Carboxyhemoglobin 1.0 POC ABG HHb (Measured) 3.9 ABG Methemoglobin 1.3 ABG O2 Capacity 17.3 Bob Test Yes ABG Potassium A-a O2 Difference 561.0 Hgb O2 Saturation 93.8 L Glucose Lactate Vent Mode Mechanical Rate FiO2 100.0 Tidal Volume PEEP Crit Value Called To Crit Value Called By Crit Value Read Back Blood Gas Notified Time Sodium 139 Potassium 4.1 Chloride 110 H Carbon Dioxide 22 Anion Gap 11 BUN 42 H Creatinine 2.1 H Est GFR ( Amer) 29 Est GFR (Non-Af Amer) 24 POC Glucose (mg/dL) 103 Random Glucose 100 Calcium 7.9 L Total Bilirubin 0.3 Direct Bilirubin AST 93 H D ALT 44 Alkaline Phosphatase 69 Ammonia Total Creatine Kinase 1332 H Troponin I 3.6000 H* Total Protein 7.8 Albumin 3.6 Globulin 4.2 H Albumin/Globulin Ratio 0.9 L Prolactin Arterial Blood Potassium Urine Color Urine Clarity Urine pH Ur Specific [place] Urine Protein Urine Glucose (UA) Urine Ketones Urine Blood Urine Nitrate Urine Bilirubin Urine Urobilinogen Ur Leukocyte Esterase Urine RBC (Auto) Urine Microscopic WBC Ur Squamous Epith Cells Urine Bacteria Hyaline Casts Ur Random Sodium Ur Random Potassium Urine Opiates Screen Urine Methadone Screen Ur Barbiturates Screen Ur Phencyclidine Scrn Ur Amphetamines Screen U Benzodiazepines Scrn U Oth Cocaine Metabols U Cannabinoids Screen Alcohol, Quantitative Hepatitis A IgM Ab Hep Bs Antigen Hep B Core IgM Ab Influenza Typ A,B (EIA) 07/12/18 07/12/18 07/12/18 04:27 04:27 04:27 WBC 5.4 RBC 4.63 Hgb 12.6 Hct 40.2 MCV 86.7 MCH 27.1 MCHC 31.3 L RDW 17.7 H Plt Count 116 L D MPV 9.3 Neut % (Auto) 83.4 H Lymph % (Auto) 8.7 L [place] % (Auto) 7.5 Eos % (Auto) 0.2 Baso % (Auto) 0.2 Neut # (Auto) 4.5 Lymph # (Auto) 0.5 L [place] # (Auto) 0.4 Eos # (Auto) 0.0 Baso # (Auto) 0.0 Neutrophils % (Manual) 80 H Lymphocytes % (Manual) 16 L Monocytes % (Manual) 4 Platelet Estimate Slightly decreased L Anisocytosis (manual) Slight PT INR APTT pCO2 pO2 HCO3 ABG pH ABG Total CO2 ABG O2 Saturation ABG O2 Content ABG Base Excess ABG Hemoglobin ABG Carboxyhemoglobin POC ABG HHb (Measured) ABG Methemoglobin ABG O2 Capacity Bob Test ABG Potassium A-a O2 Difference Hgb O2 Saturation Glucose Lactate Vent Mode Mechanical Rate FiO2 Tidal Volume PEEP Crit Value Called To Crit Value Called By Crit Value Read Back Blood Gas Notified Time Sodium 141 Potassium 4.4 Chloride 110 H Carbon Dioxide 23 Anion Gap 12 BUN 44 H Creatinine 2.1 H Est GFR ( Amer) 29 Est GFR (Non-Af Amer) 24 POC Glucose (mg/dL) Random Glucose 113 H Calcium 7.9 L Total Bilirubin 0.3 Direct Bilirubin AST 98 H ALT 51 Alkaline Phosphatase 64 Ammonia 36 D Total Creatine Kinase 1359 H Troponin I Total Protein 7.5 Albumin 3.4 L Globulin 4.1 H Albumin/Globulin Ratio 0.8 L Prolactin Arterial Blood Potassium Urine Color Urine Clarity Urine pH Ur Specific [place] Urine Protein Urine Glucose (UA) Urine Ketones Urine Blood Urine Nitrate Urine Bilirubin Urine Urobilinogen Ur Leukocyte Esterase Urine RBC (Auto) Urine Microscopic WBC Ur Squamous Epith Cells Urine Bacteria Hyaline Casts Ur Random Sodium Ur Random Potassium Urine Opiates Screen Urine Methadone Screen Ur Barbiturates Screen Ur Phencyclidine Scrn Ur Amphetamines Screen U Benzodiazepines Scrn U Oth Cocaine Metabols U Cannabinoids Screen Alcohol, Quantitative Hepatitis A IgM Ab Hep Bs Antigen Hep B Core IgM Ab Influenza Typ A,B (EIA) 07/12/18 07/12/18 07/12/18 05:37 05:46 11:15 WBC RBC Hgb Hct MCV MCH MCHC RDW Plt Count MPV Neut % (Auto) Lymph % (Auto) [place] % (Auto) Eos % (Auto) Baso % (Auto) Neut # (Auto) Lymph # (Auto) [place] # (Auto) Eos # (Auto) Baso # (Auto) Neutrophils % (Manual) Lymphocytes % (Manual) Monocytes % (Manual) Platelet Estimate Anisocytosis (manual) PT INR APTT pCO2 46 H pO2 81 HCO3 25.0 ABG pH 7.36 ABG Total CO2 27.4 ABG O2 Saturation 96.9 ABG O2 Content 15.9 ABG Base Excess 0.2 ABG Hemoglobin 11.8 ABG Carboxyhemoglobin 0.9 POC ABG HHb (Measured) 3.0 ABG Methemoglobin 1.0 ABG O2 Capacity 16.4 Bob Test Yes ABG Potassium A-a O2 Difference 289.0 Hgb O2 Saturation 95.1 Glucose Lactate Vent Mode A/c Mechanical Rate 16 FiO2 60.0 Tidal Volume 450 PEEP 5 Crit Value Called To Crit Value Called By Crit Value Read Back Blood Gas Notified Time Sodium Potassium Chloride Carbon Dioxide Anion Gap BUN Creatinine Est GFR ( Amer) Est GFR (Non-Af Amer) POC Glucose (mg/dL) 122 H Random Glucose Calcium Total Bilirubin Direct Bilirubin AST ALT Alkaline Phosphatase Ammonia Total Creatine Kinase Troponin I 3.5100 H* Total Protein Albumin Globulin Albumin/Globulin Ratio Prolactin Arterial Blood Potassium Urine Color Urine Clarity Urine pH Ur Specific [place] Urine Protein Urine Glucose (UA) Urine Ketones Urine Blood Urine Nitrate Urine Bilirubin Urine Urobilinogen Ur Leukocyte Esterase Urine RBC (Auto) Urine Microscopic WBC Ur Squamous Epith Cells Urine Bacteria Hyaline Casts Ur Random Sodium Ur Random Potassium Urine Opiates Screen Urine Methadone Screen Ur Barbiturates Screen Ur Phencyclidine Scrn Ur Amphetamines Screen U Benzodiazepines Scrn U Oth Cocaine Metabols U Cannabinoids Screen Alcohol, Quantitative Hepatitis A IgM Ab Hep Bs Antigen Hep B Core IgM Ab Influenza Typ A,B (EIA) Assessment & Plan (1) Bipolar disorder, current episode mixed, moderate Status: Acute (2) COPD (chronic obstructive pulmonary disease) Status: Acute (3) HIV (human immunodeficiency virus infection) Assessment and Plan: last CD4 <100 Status: Acute (4) Cerebrovascular accident (CVA) with hemiparesis Status: Acute (5) Cerebrovascular accident (CVA) with right hemiparesis Status: Acute (6) Respiratory failure Status: Acute (7) Influenza A Status: Acute (8) Rhabdomyolysis Status: Acute (9) JOE (acute kidney injury) Status: Acute - Assessment and Plan (Free Text) Assessment: acute CVA in a 58 yo female with hx HIV/Hep C r/o septic causes including endocarditis - given infectious presentation consider [employer], Lymphoma, PML, CMV, cryptococcus in differential - await MRI results consider Lumbar puncture , await Neuro eval cont IV antibiotics MRI results reviewed- OI less liklely etiology cont rx as per Dr Carballo
[2018-07-12 12:44] LABS: HEPATITIS C ANTIBODY REACTIVE (NEGATIVE)
[2018-07-12] MEDS ORDERED: Propofol 10 mg/ml 2,000 MG/200 ML VIAL ONE (12:59)
[2018-07-12] MEDS ORDERED: Propofol 10 mg/ml 1,000 MG/100 ML VIAL IV SCH ×2 (13:30→23:15)
--- NOTE | 2018-07-12 14:47 | CP.CCUPN ---
CCU Subjective - Physician Review Events Since Last Encounter (Free Text): 07/12/18 14:53 patient was obtunded today, with dense right hemiplegia. CCU Objective - Vital Signs / Intake & Output Intake and Output (Last 8hrs): Intake & Output 07/11/18 07/12/18 07/12/18 22:59 06:59 14:59 Intake Total 150 Balance 150 Weight 162 lb 6.4 oz Intake: IV 150 - Physical Exam Physical Exam Limitations: Positive for: Altered Mental Status Head: Positive for: Atraumatic, Normocephalic Pupils: Positive for: PERRL Extroacular Muscles: Positive for: EOMI Conjunctiva: Positive for: Normal Mouth: Positive for: Moist Mucous Membranes Pharnyx: Positive for: Normal Nose (External): Positive for: Atraumatic Neck: Positive for: Normal Range of Motion Respiratory/Chest: Positive for: Clear to Auscultation, Decreased Breath Sounds (at RLL) Abdomen: Positive for: Normal Bowel Sounds. Negative for: Tenderness, Distention Upper Extremity: Positive for: Normal Inspection Lower Extremity: Positive for: Normal Inspection Neurological: Positive for: Other (right hemiparesis). Negative for: GCS=15 Psychiatric: Positive for: Alert - Medications Active Medications: Active Medications Generic Name Dose Route Start Last Admin Trade Name Freq PRN Reason Stop Dose Admin Acetaminophen 650 mg 07/11/18 20:00 Tylenol 325mg Tab PO Q6 PRN Fever >100.4 F Albuterol/Ipratropium 3 ml 07/11/18 19:13 07/11/18 23:01 Duoneb 3 Mg/0.5 Mg (3 Ml) Ud INH 3 ml RQ4 PRN Administration Shortness of Breath Aspirin 81 mg 07/12/18 12:00 Aspirin Chewable PO DAILY FAY Dextrose 0 ml 07/11/18 18:48 Dextrose 50% Inj IV STAT PRN Hypoglycemia Protocol Protocol Dextrose 0 gm 07/11/18 18:48 Glutose 15 PO ONCE PRN Hypoglycemia Protocol Protocol Dolutegravir Sodium 50 mg 07/13/18 09:00 Tivicay PO DAILY FAY Protocol Emtricitabine/Tenofovir 1 tab 07/13/18 09:00 Truvada 200 Mg-300 Mg PO DAILY FAY Protocol Enoxaparin Sodium 30 mg 07/13/18 09:00 Lovenox SC DAILY [facility] Protocol Glucagon 0 mg 07/11/18 18:48 Glucagen Diagnostic Kit IM STAT PRN Hypoglycemia Protocol Protocol Levofloxacin/Dextrose 750 mg in 150 mls @ 100 mls/hr 07/13/18 09:00 Levaquin 750mg IVPB Q48H FAY Lactated Ringer's 1,000 mls @ 75 mls/hr 07/12/18 11:00 Lactated Ringer's IV .[id number] FAY Propofol 1,000 mg in 100 mls @ 2.21 mls/hr 07/12/18 13:30 Diprivan IV 07/13/18 13:19 .Q24H FAY Protocol 5 MCG/KG/MIN Insulin Human Regular 0 units 07/11/18 22:00 07/12/18 12:30 Humulin R SC Not Given ACHS FAY Protocol Midazolam HCl 2 mg 07/12/18 11:03 07/12/18 11:57 Versed Inj IV 2 mg Q6 PRN Administration Agitation Oseltamivir Phosphate 75 mg 07/12/18 17:00 07/12/18 12:00 Tamiflu Cap PO 75 mg BID FAY Administration Protocol Pantoprazole Sodium 40 mg 07/13/18 09:00 Protonix Ec Tab PO DAILY FAY Trimethoprim/Sulfamethoxazole 20 ml 07/12/18 21:00 Sulfatrim Pediatric Susp PO Q12 FAY Protocol - Patient Studies Lab Studies: Lab Studies 07/12/18 07/12/18 07/12/18 Range/Units 12:56 11:15 05:46 WBC (4.8-10.8) K/uL RBC (3.80-5.20) Mil/uL Hgb (12.0-16.0) g/dL Hct (34.0-47.0) % MCV (81.0-99.0) fl MCH (27.0-31.0) pg MCHC (33.0-37.0) g/dL RDW (11.5-14.5) % Plt Count (130-400) K/uL MPV (7.2-11.7) fl Neut % (Auto) (50.0-75.0) % Lymph % (Auto) (20.0-40.0) % Story % (Auto) (0.0-10.0) % Eos % (Auto) (0.0-4.0) % Baso % (Auto) (0.0-2.0) % Neut # (Auto) (1.8-7.0) K/uL Lymph # (Auto) (1.0-4.3) K/uL Story # (Auto) (0.0-0.8) K/uL Eos # (Auto) (0.0-0.7) K/uL Baso # (Auto) (0.0-0.2) K/uL Neutrophils % (Manual) (42-75) % Lymphocytes % (Manual) (20-50) % Monocytes % (Manual) (0-10) % Platelet Estimate (NORMAL) Anisocytosis (manual) PT (9.8-13.1) Seconds INR APTT (25.6-37.1) Seconds pCO2 46 H (35-45) mm/Hg pO2 81 (80-100) mm/Hg HCO3 25.0 (21-28) mmol/L ABG pH 7.36 (7.35-7.45) ABG Total CO2 27.4 (22-28) mmol/L ABG O2 Saturation 96.9 (95-98) % ABG O2 Content 15.9 (15-23) ML/dL ABG Base Excess 0.2 (-2.0-3.0) mmol/L ABG Hemoglobin 11.8 (11.7-17.4) g/dL ABG Carboxyhemoglobin 0.9 (0.5-1.5) % POC ABG HHb (Measured) 3.0 (0.0-5.0) % ABG Methemoglobin 1.0 (0.0-3.0) % ABG O2 Capacity 16.4 (16-24) mL/dL Bob Test Yes ABG Potassium (3.6-5.2) mmol/L A-a O2 Difference 289.0 mm/Hg Hgb O2 Saturation 95.1 (95.0-98.0) % Sodium (132-148) mmol/L Chloride (98-107) mmol/L Glucose (65-105) mg/dL Lactate (0.7-2.1) mmol/L Vent Mode A/c Mechanical Rate 16 FiO2 60.0 % Tidal Volume 450 PEEP 5 Crit Value Called To Crit Value Called By Crit Value Read Back Blood Gas Notified Time Potassium (3.6-5.0) MMOL/L Carbon Dioxide (22-30) mmol/L Anion Gap (10-20) BUN (7-17) mg/dl Creatinine (0.7-1.2) mg/dl Est GFR ( Amer) Est GFR (Non-Af Amer) POC Glucose (mg/dL) 118 H (65-110) mg/dL Random Glucose (65-105) mg/dL Calcium (8.4-10.2) mg/dL Total Bilirubin (0.2-1.3) mg/dl Direct Bilirubin (0.0-0.4) mg/ml AST (14-36) U/L ALT (9-52) U/L Alkaline Phosphatase (38-126) U/L Ammonia (11-51) umo/L Total Creatine Kinase (30-135) U/L Troponin I 3.5100 H* (0.00-0.120) ng/mL Total Protein (6.3-8.2) G/DL Albumin (3.5-5.0) g/dL Globulin (2.2-3.9) gm/dL Albumin/Globulin Ratio (1.0-2.1) Procalcitonin (0.19-0.49) NG/ML Prolactin (3.0-18.9) ng/mL Arterial Blood Potassium (3.6-5.2) mmol/L Urine Color (YELLOW) Urine Clarity (Clear) Urine pH (5.0-8.0) Ur Specific [place] (1.003-1.030) Urine Protein (NEGATIVE) mg/dL Urine Glucose (UA) (NEGATIVE) mg/dL Urine Ketones (NEGATIVE) mg/dL Urine Blood (NEGATIVE) Urine Nitrate (NEGATIVE) Urine Bilirubin (NEGATIVE) Urine Urobilinogen (0.2-1.0) mg/dL Ur Leukocyte Esterase (Negative) Nevin/uL Urine RBC (Auto) (0-3) /hpf Urine Microscopic WBC (0-5) /hpf Ur Squamous Epith Cells (0-5) /hpf Urine Bacteria (<OCC) Hyaline Casts (0-2) /hpf Ur Random Sodium meq/L Ur Random Potassium mmol/L Urine Opiates Screen (NEGATIVE) Urine Methadone Screen (NEGATIVE) Ur Barbiturates Screen (NEGATIVE) Ur Phencyclidine Scrn (NEGATIVE) Ur Amphetamines Screen (NEGATIVE) U Benzodiazepines Scrn (NEGATIVE) U Oth Cocaine Metabols (NEGATIVE) U Cannabinoids Screen (NEGATIVE) Hepatitis A IgM Ab (NEGATIVE) Hep Bs Antigen (NEGATIVE) Hep B Core IgM Ab (NEGATIVE) Hepatitis C Antibody (NEGATIVE) 07/12/18 07/12/18 07/12/18 Range/Units 05:37 04:27 04:27 WBC (4.8-10.8) K/uL RBC (3.80-5.20) Mil/uL Hgb (12.0-16.0) g/dL Hct (34.0-47.0) % MCV (81.0-99.0) fl MCH (27.0-31.0) pg MCHC (33.0-37.0) g/dL RDW (11.5-14.5) % Plt Count (130-400) K/uL MPV (7.2-11.7) fl Neut % (Auto) (50.0-75.0) % Lymph % (Auto) (20.0-40.0) % Story % (Auto) (0.0-10.0) % Eos % (Auto) (0.0-4.0) % Baso % (Auto) (0.0-2.0) % Neut # (Auto) (1.8-7.0) K/uL Lymph # (Auto) (1.0-4.3) K/uL Story # (Auto) (0.0-0.8) K/uL Eos # (Auto) (0.0-0.7) K/uL Baso # (Auto) (0.0-0.2) K/uL Neutrophils % (Manual) (42-75) % Lymphocytes % (Manual) (20-50) % Monocytes % (Manual) (0-10) % Platelet Estimate (NORMAL) Anisocytosis (manual) PT (9.8-13.1) Seconds INR APTT (25.6-37.1) Seconds pCO2 (35-45) mm/Hg pO2 (80-100) mm/Hg HCO3 (21-28) mmol/L ABG pH (7.35-7.45) ABG Total CO2 (22-28) mmol/L ABG O2 Saturation (95-98) % ABG O2 Content (15-23) ML/dL ABG Base Excess (-2.0-3.0) mmol/L ABG Hemoglobin (11.7-17.4) g/dL ABG Carboxyhemoglobin (0.5-1.5) % POC ABG HHb (Measured) (0.0-5.0) % ABG Methemoglobin (0.0-3.0) % ABG O2 Capacity (16-24) mL/dL Bob Test ABG Potassium (3.6-5.2) mmol/L A-a O2 Difference mm/Hg Hgb O2 Saturation (95.0-98.0) % Sodium 141 (132-148) mmol/L Chloride 110 H (98-107) mmol/L Glucose (65-105) mg/dL Lactate (0.7-2.1) mmol/L Vent Mode Mechanical Rate FiO2 % Tidal Volume PEEP Crit Value Called To Crit Value Called By Crit Value Read Back Blood Gas Notified Time Potassium 4.4 (3.6-5.0) MMOL/L Carbon Dioxide 23 (22-30) mmol/L Anion Gap 12 (10-20) BUN 44 H (7-17) mg/dl Creatinine 2.1 H (0.7-1.2) mg/dl Est GFR ( Amer) 29 Est GFR (Non-Af Amer) 24 POC Glucose (mg/dL) 122 H (65-110) mg/dL Random Glucose 113 H (65-105) mg/dL Calcium 7.9 L (8.4-10.2) mg/dL Total Bilirubin 0.3 (0.2-1.3) mg/dl Direct Bilirubin (0.0-0.4) mg/ml AST 98 H (14-36) U/L ALT 51 (9-52) U/L Alkaline Phosphatase 64 (38-126) U/L Ammonia 36 D (11-51) umo/L Total Creatine Kinase 1359 H (30-135) U/L Troponin I (0.00-0.120) ng/mL Total Protein 7.5 (6.3-8.2) G/DL Albumin 3.4 L (3.5-5.0) g/dL Globulin 4.1 H (2.2-3.9) gm/dL Albumin/Globulin Ratio 0.8 L (1.0-2.1) Procalcitonin (0.19-0.49) NG/ML Prolactin (3.0-18.9) ng/mL Arterial Blood Potassium (3.6-5.2) mmol/L Urine Color (YELLOW) Urine Clarity (Clear) Urine pH (5.0-8.0) Ur Specific [place] (1.003-1.030) Urine Protein (NEGATIVE) mg/dL Urine Glucose (UA) (NEGATIVE) mg/dL Urine Ketones (NEGATIVE) mg/dL Urine Blood (NEGATIVE) Urine Nitrate (NEGATIVE) Urine Bilirubin (NEGATIVE) Urine Urobilinogen (0.2-1.0) mg/dL Ur Leukocyte Esterase (Negative) Nevin/uL Urine RBC (Auto) (0-3) /hpf Urine Microscopic WBC (0-5) /hpf Ur Squamous Epith Cells (0-5) /hpf Urine Bacteria (<OCC) Hyaline Casts (0-2) /hpf Ur Random Sodium meq/L Ur Random Potassium mmol/L Urine Opiates Screen (NEGATIVE) Urine Methadone Screen (NEGATIVE) Ur Barbiturates Screen (NEGATIVE) Ur Phencyclidine Scrn (NEGATIVE) Ur Amphetamines Screen (NEGATIVE) U Benzodiazepines Scrn (NEGATIVE) U Oth Cocaine Metabols (NEGATIVE) U Cannabinoids Screen (NEGATIVE) Hepatitis A IgM Ab (NEGATIVE) Hep Bs Antigen (NEGATIVE) Hep B Core IgM Ab (NEGATIVE) Hepatitis C Antibody (NEGATIVE) 07/12/18 07/12/18 07/12/18 Range/Units 04:27 00:47 00:30 WBC 5.4 (4.8-10.8) K/uL RBC 4.63 (3.80-5.20) Mil/uL Hgb 12.6 (12.0-16.0) g/dL Hct 40.2 (34.0-47.0) % MCV 86.7 (81.0-99.0) fl MCH 27.1 (27.0-31.0) pg MCHC 31.3 L (33.0-37.0) g/dL RDW 17.7 H (11.5-14.5) % Plt Count 116 L D (130-400) K/uL MPV 9.3 (7.2-11.7) fl Neut % (Auto) 83.4 H (50.0-75.0) % Lymph % (Auto) 8.7 L (20.0-40.0) % Story % (Auto) 7.5 (0.0-10.0) % Eos % (Auto) 0.2 (0.0-4.0) % Baso % (Auto) 0.2 (0.0-2.0) % Neut # (Auto) 4.5 (1.8-7.0) K/uL Lymph # (Auto) 0.5 L (1.0-4.3) K/uL Story # (Auto) 0.4 (0.0-0.8) K/uL Eos # (Auto) 0.0 (0.0-0.7) K/uL Baso # (Auto) 0.0 (0.0-0.2) K/uL Neutrophils % (Manual) 80 H (42-75) % Lymphocytes % (Manual) 16 L (20-50) % Monocytes % (Manual) 4 (0-10) % Platelet Estimate Slightly decreased L (NORMAL) Anisocytosis (manual) Slight PT (9.8-13.1) Seconds INR APTT (25.6-37.1) Seconds pCO2 (35-45) mm/Hg pO2 (80-100) mm/Hg HCO3 (21-28) mmol/L ABG pH (7.35-7.45) ABG Total CO2 (22-28) mmol/L ABG O2 Saturation (95-98) % ABG O2 Content (15-23) ML/dL ABG Base Excess (-2.0-3.0) mmol/L ABG Hemoglobin (11.7-17.4) g/dL ABG Carboxyhemoglobin (0.5-1.5) % POC ABG HHb (Measured) (0.0-5.0) % ABG Methemoglobin (0.0-3.0) % ABG O2 Capacity (16-24) mL/dL Bob Test ABG Potassium (3.6-5.2) mmol/L A-a O2 Difference mm/Hg Hgb O2 Saturation (95.0-98.0) % Sodium 139 (132-148) mmol/L Chloride 110 H (98-107) mmol/L Glucose (65-105) mg/dL Lactate (0.7-2.1) mmol/L Vent Mode Mechanical Rate FiO2 % Tidal Volume PEEP Crit Value Called To Crit Value Called By Crit Value Read Back Blood Gas Notified Time Potassium 4.1 (3.6-5.0) MMOL/L Carbon Dioxide 22 (22-30) mmol/L Anion Gap 11 (10-20) BUN 42 H (7-17) mg/dl Creatinine 2.1 H (0.7-1.2) mg/dl Est GFR ( Amer) 29 Est GFR (Non-Af Amer) 24 POC Glucose (mg/dL) 103 (65-110) mg/dL Random Glucose 100 (65-105) mg/dL Calcium 7.9 L (8.4-10.2) mg/dL Total Bilirubin 0.3 (0.2-1.3) mg/dl Direct Bilirubin (0.0-0.4) mg/ml AST 93 H D (14-36) U/L ALT 44 (9-52) U/L Alkaline Phosphatase 69 (38-126) U/L Ammonia (11-51) umo/L Total Creatine Kinase 1332 H (30-135) U/L Troponin I 3.6000 H* (0.00-0.120) ng/mL Total Protein 7.8 (6.3-8.2) G/DL Albumin 3.6 (3.5-5.0) g/dL Globulin 4.2 H (2.2-3.9) gm/dL Albumin/Globulin Ratio 0.9 L (1.0-2.1) Procalcitonin (0.19-0.49) NG/ML Prolactin (3.0-18.9) ng/mL Arterial Blood Potassium (3.6-5.2) mmol/L Urine Color (YELLOW) Urine Clarity (Clear) Urine pH (5.0-8.0) Ur Specific [place] (1.003-1.030) Urine Protein (NEGATIVE) mg/dL Urine Glucose (UA) (NEGATIVE) mg/dL Urine Ketones (NEGATIVE) mg/dL Urine Blood (NEGATIVE) Urine Nitrate (NEGATIVE) Urine Bilirubin (NEGATIVE) Urine Urobilinogen (0.2-1.0) mg/dL Ur Leukocyte Esterase (Negative) Nevin/uL Urine RBC (Auto) (0-3) /hpf Urine Microscopic WBC (0-5) /hpf Ur Squamous Epith Cells (0-5) /hpf Urine Bacteria (<OCC) Hyaline Casts (0-2) /hpf Ur Random Sodium meq/L Ur Random Potassium mmol/L Urine Opiates Screen (NEGATIVE) Urine Methadone Screen (NEGATIVE) Ur Barbiturates Screen (NEGATIVE) Ur Phencyclidine Scrn (NEGATIVE) Ur Amphetamines Screen (NEGATIVE) U Benzodiazepines Scrn (NEGATIVE) U Oth Cocaine Metabols (NEGATIVE) U Cannabinoids Screen (NEGATIVE) Hepatitis A IgM Ab (NEGATIVE) Hep Bs Antigen (NEGATIVE) Hep B Core IgM Ab (NEGATIVE) Hepatitis C Antibody (NEGATIVE) 07/12/18 07/11/18 07/11/18 Range/Units 00:17 21:28 21:23 WBC (4.8-10.8) K/uL RBC (3.80-5.20) Mil/uL Hgb (12.0-16.0) g/dL Hct (34.0-47.0) % MCV (81.0-99.0) fl MCH (27.0-31.0) pg MCHC (33.0-37.0) g/dL RDW (11.5-14.5) % Plt Count (130-400) K/uL MPV (7.2-11.7) fl Neut % (Auto) (50.0-75.0) % Lymph % (Auto) (20.0-40.0) % Story % (Auto) (0.0-10.0) % Eos % (Auto) (0.0-4.0) % Baso % (Auto) (0.0-2.0) % Neut # (Auto) (1.8-7.0) K/uL Lymph # (Auto) (1.0-4.3) K/uL Story # (Auto) (0.0-0.8) K/uL Eos # (Auto) (0.0-0.7) K/uL Baso # (Auto) (0.0-0.2) K/uL Neutrophils % (Manual) (42-75) % Lymphocytes % (Manual) (20-50) % Monocytes % (Manual) (0-10) % Platelet Estimate (NORMAL) Anisocytosis (manual) PT (9.8-13.1) Seconds INR APTT (25.6-37.1) Seconds pCO2 56 H (35-45) mm/Hg pO2 82 (80-100) mm/Hg HCO3 19.7 L (21-28) mmol/L ABG pH 7.20 L (7.35-7.45) ABG Total CO2 23.6 (22-28) mmol/L ABG O2 Saturation 96.0 (95-98) % ABG O2 Content 16.6 (15-23) ML/dL ABG Base Excess -6.6 L (-2.0-3.0) mmol/L ABG Hemoglobin 12.5 (11.7-17.4) g/dL ABG Carboxyhemoglobin 1.0 (0.5-1.5) % POC ABG HHb (Measured) 3.9 (0.0-5.0) % ABG Methemoglobin 1.3 (0.0-3.0) % ABG O2 Capacity 17.3 (16-24) mL/dL Bob Test Yes ABG Potassium (3.6-5.2) mmol/L A-a O2 Difference 561.0 mm/Hg Hgb O2 Saturation 93.8 L (95.0-98.0) % Sodium (132-148) mmol/L Chloride (98-107) mmol/L Glucose (65-105) mg/dL Lactate (0.7-2.1) mmol/L Vent Mode Mechanical Rate FiO2 100.0 % Tidal Volume PEEP Crit Value Called To Crit Value Called By Crit Value Read Back Blood Gas Notified Time Potassium (3.6-5.0) MMOL/L Carbon Dioxide (22-30) mmol/L Anion Gap (10-20) BUN (7-17) mg/dl Creatinine (0.7-1.2) mg/dl Est GFR ( Amer) Est GFR (Non-Af Amer) POC Glucose (mg/dL) 100 (65-110) mg/dL Random Glucose (65-105) mg/dL Calcium (8.4-10.2) mg/dL Total Bilirubin (0.2-1.3) mg/dl Direct Bilirubin (0.0-0.4) mg/ml AST (14-36) U/L ALT (9-52) U/L Alkaline Phosphatase (38-126) U/L Ammonia (11-51) umo/L Total Creatine Kinase (30-135) U/L Troponin I (0.00-0.120) ng/mL Total Protein (6.3-8.2) G/DL Albumin (3.5-5.0) g/dL Globulin (2.2-3.9) gm/dL Albumin/Globulin Ratio (1.0-2.1) Procalcitonin 0.64 H (0.19-0.49) NG/ML Prolactin (3.0-18.9) ng/mL Arterial Blood Potassium (3.6-5.2) mmol/L Urine Color (YELLOW) Urine Clarity (Clear) Urine pH (5.0-8.0) Ur Specific [place] (1.003-1.030) Urine Protein (NEGATIVE) mg/dL Urine Glucose (UA) (NEGATIVE) mg/dL Urine Ketones (NEGATIVE) mg/dL Urine Blood (NEGATIVE) Urine Nitrate (NEGATIVE) Urine Bilirubin (NEGATIVE) Urine Urobilinogen (0.2-1.0) mg/dL Ur Leukocyte Esterase (Negative) Nevin/uL Urine RBC (Auto) (0-3) /hpf Urine Microscopic WBC (0-5) /hpf Ur Squamous Epith Cells (0-5) /hpf Urine Bacteria (<OCC) Hyaline Casts (0-2) /hpf Ur Random Sodium meq/L Ur Random Potassium mmol/L Urine Opiates Screen (NEGATIVE) Urine Methadone Screen (NEGATIVE) Ur Barbiturates Screen (NEGATIVE) Ur Phencyclidine Scrn (NEGATIVE) Ur Amphetamines Screen (NEGATIVE) U Benzodiazepines Scrn (NEGATIVE) U Oth Cocaine Metabols (NEGATIVE) U Cannabinoids Screen (NEGATIVE) Hepatitis A IgM Ab (NEGATIVE) Hep Bs Antigen (NEGATIVE) Hep B Core IgM Ab (NEGATIVE) Hepatitis C Antibody (NEGATIVE) 07/11/18 07/11/18 07/11/18 Range/Units 20:23 19:52 19:28 WBC (4.8-10.8) K/uL RBC (3.80-5.20) Mil/uL Hgb (12.0-16.0) g/dL Hct (34.0-47.0) % MCV (81.0-99.0) fl MCH (27.0-31.0) pg MCHC (33.0-37.0) g/dL RDW (11.5-14.5) % Plt Count (130-400) K/uL MPV (7.2-11.7) fl Neut % (Auto) (50.0-75.0) % Lymph % (Auto) (20.0-40.0) % Story % (Auto) (0.0-10.0) % Eos % (Auto) (0.0-4.0) % Baso % (Auto) (0.0-2.0) % Neut # (Auto) (1.8-7.0) K/uL Lymph # (Auto) (1.0-4.3) K/uL Story # (Auto) (0.0-0.8) K/uL Eos # (Auto) (0.0-0.7) K/uL Baso # (Auto) (0.0-0.2) K/uL Neutrophils % (Manual) (42-75) % Lymphocytes % (Manual) (20-50) % Monocytes % (Manual) (0-10) % Platelet Estimate (NORMAL) Anisocytosis (manual) PT (9.8-13.1) Seconds INR APTT (25.6-37.1) Seconds pCO2 (35-45) mm/Hg pO2 (80-100) mm/Hg HCO3 (21-28) mmol/L ABG pH (7.35-7.45) ABG Total CO2 (22-28) mmol/L ABG O2 Saturation (95-98) % ABG O2 Content (15-23) ML/dL ABG Base Excess (-2.0-3.0) mmol/L ABG Hemoglobin (11.7-17.4) g/dL ABG Carboxyhemoglobin (0.5-1.5) % POC ABG HHb (Measured) (0.0-5.0) % ABG Methemoglobin (0.0-3.0) % ABG O2 Capacity (16-24) mL/dL Bob Test ABG Potassium (3.6-5.2) mmol/L A-a O2 Difference mm/Hg Hgb O2 Saturation (95.0-98.0) % Sodium (132-148) mmol/L Chloride (98-107) mmol/L Glucose (65-105) mg/dL Lactate (0.7-2.1) mmol/L Vent Mode Mechanical Rate FiO2 % Tidal Volume PEEP Crit Value Called To Crit Value Called By Crit Value Read Back Blood Gas Notified Time Potassium (3.6-5.0) MMOL/L Carbon Dioxide (22-30) mmol/L Anion Gap (10-20) BUN (7-17) mg/dl Creatinine (0.7-1.2) mg/dl Est GFR ( Amer) Est GFR (Non-Af Amer) POC Glucose (mg/dL) 54 L (65-110) mg/dL Random Glucose (65-105) mg/dL Calcium (8.4-10.2) mg/dL Total Bilirubin 0.2 (0.2-1.3) mg/dl Direct Bilirubin 0.2 (0.0-0.4) mg/ml AST 74 H D (14-36) U/L ALT 44 (9-52) U/L Alkaline Phosphatase 58 (38-126) U/L Ammonia (11-51) umo/L Total Creatine Kinase 1062 H (30-135) U/L Troponin I 3.1800 H* (0.00-0.120) ng/mL Total Protein 7.3 (6.3-8.2) G/DL Albumin 3.4 L (3.5-5.0) g/dL Globulin 3.9 (2.2-3.9) gm/dL Albumin/Globulin Ratio 0.9 L (1.0-2.1) Procalcitonin (0.19-0.49) NG/ML Prolactin 26.3 H (3.0-18.9) ng/mL Arterial Blood Potassium (3.6-5.2) mmol/L Urine Color (YELLOW) Urine Clarity (Clear) Urine pH (5.0-8.0) Ur Specific [place] (1.003-1.030) Urine Protein (NEGATIVE) mg/dL Urine Glucose (UA) (NEGATIVE) mg/dL Urine Ketones (NEGATIVE) mg/dL Urine Blood (NEGATIVE) Urine Nitrate (NEGATIVE) Urine Bilirubin (NEGATIVE) Urine Urobilinogen (0.2-1.0) mg/dL Ur Leukocyte Esterase (Negative) Nevin/uL Urine RBC (Auto) (0-3) /hpf Urine Microscopic WBC (0-5) /hpf Ur Squamous Epith Cells (0-5) /hpf Urine Bacteria (<OCC) Hyaline Casts (0-2) /hpf Ur Random Sodium meq/L Ur Random Potassium mmol/L Urine Opiates Screen (NEGATIVE) Urine Methadone Screen (NEGATIVE) Ur Barbiturates Screen (NEGATIVE) Ur Phencyclidine Scrn (NEGATIVE) Ur Amphetamines Screen (NEGATIVE) U Benzodiazepines Scrn (NEGATIVE) U Oth Cocaine Metabols (NEGATIVE) U Cannabinoids Screen (NEGATIVE) Hepatitis A IgM Ab (NEGATIVE) Hep Bs Antigen (NEGATIVE) Hep B Core IgM Ab (NEGATIVE) Hepatitis C Antibody (NEGATIVE) 07/11/18 07/11/18 07/11/18 Range/Units 19:17 19:12 18:54 WBC (4.8-10.8) K/uL RBC (3.80-5.20) Mil/uL Hgb (12.0-16.0) g/dL Hct (34.0-47.0) % MCV (81.0-99.0) fl MCH (27.0-31.0) pg MCHC (33.0-37.0) g/dL RDW (11.5-14.5) % Plt Count (130-400) K/uL MPV (7.2-11.7) fl Neut % (Auto) (50.0-75.0) % Lymph % (Auto) (20.0-40.0) % Story % (Auto) (0.0-10.0) % Eos % (Auto) (0.0-4.0) % Baso % (Auto) (0.0-2.0) % Neut # (Auto) (1.8-7.0) K/uL Lymph # (Auto) (1.0-4.3) K/uL Story # (Auto) (0.0-0.8) K/uL Eos # (Auto) (0.0-0.7) K/uL Baso # (Auto) (0.0-0.2) K/uL Neutrophils % (Manual) (42-75) % Lymphocytes % (Manual) (20-50) % Monocytes % (Manual) (0-10) % Platelet Estimate (NORMAL) Anisocytosis (manual) PT 11.5 (9.8-13.1) Seconds INR 1.0 APTT 28.9 (25.6-37.1) Seconds pCO2 (35-45) mm/Hg pO2 (80-100) mm/Hg HCO3 (21-28) mmol/L ABG pH (7.35-7.45) ABG Total CO2 (22-28) mmol/L ABG O2 Saturation (95-98) % ABG O2 Content (15-23) ML/dL ABG Base Excess (-2.0-3.0) mmol/L ABG Hemoglobin (11.7-17.4) g/dL ABG Carboxyhemoglobin (0.5-1.5) % POC ABG HHb (Measured) (0.0-5.0) % ABG Methemoglobin (0.0-3.0) % ABG O2 Capacity (16-24) mL/dL Bob Test ABG Potassium (3.6-5.2) mmol/L A-a O2 Difference mm/Hg Hgb O2 Saturation (95.0-98.0) % Sodium (132-148) mmol/L Chloride (98-107) mmol/L Glucose (65-105) mg/dL Lactate (0.7-2.1) mmol/L Vent Mode Mechanical Rate FiO2 % Tidal Volume PEEP Crit Value Called To Crit Value Called By Crit Value Read Back Blood Gas Notified Time Potassium (3.6-5.0) MMOL/L Carbon Dioxide (22-30) mmol/L Anion Gap (10-20) BUN (7-17) mg/dl Creatinine (0.7-1.2) mg/dl Est GFR ( Amer) Est GFR (Non-Af Amer) POC Glucose (mg/dL) (65-110) mg/dL Random Glucose (65-105) mg/dL Calcium (8.4-10.2) mg/dL Total Bilirubin (0.2-1.3) mg/dl Direct Bilirubin (0.0-0.4) mg/ml AST (14-36) U/L ALT (9-52) U/L Alkaline Phosphatase (38-126) U/L Ammonia (11-51) umo/L Total Creatine Kinase (30-135) U/L Troponin I (0.00-0.120) ng/mL Total Protein (6.3-8.2) G/DL Albumin (3.5-5.0) g/dL Globulin (2.2-3.9) gm/dL Albumin/Globulin Ratio (1.0-2.1) Procalcitonin (0.19-0.49) NG/ML Prolactin (3.0-18.9) ng/mL Arterial Blood Potassium (3.6-5.2) mmol/L Urine Color Dark yellow (YELLOW) Urine Clarity Cloudy (Clear) Urine pH 5.0 (5.0-8.0) Ur Specific [place] 1.017 (1.003-1.030) Urine Protein >=300 (NEGATIVE) mg/dL Urine Glucose (UA) Neg (NEGATIVE) mg/dL Urine Ketones Negative (NEGATIVE) mg/dL Urine Blood Moderate (NEGATIVE) Urine Nitrate Negative (NEGATIVE) Urine Bilirubin Negative (NEGATIVE) Urine Urobilinogen 0.2-1.0 (0.2-1.0) mg/dL Ur Leukocyte Esterase Trace (Negative) Nevin/uL Urine RBC (Auto) 13 H (0-3) /hpf Urine Microscopic WBC 9 H (0-5) /hpf Ur Squamous Epith Cells 1 (0-5) /hpf Urine Bacteria Occ H (<OCC) Hyaline Casts 0-2 (0-2) /hpf Ur Random Sodium meq/L Ur Random Potassium mmol/L Urine Opiates Screen (NEGATIVE) Urine Methadone Screen (NEGATIVE) Ur Barbiturates Screen (NEGATIVE) Ur Phencyclidine Scrn (NEGATIVE) Ur Amphetamines Screen (NEGATIVE) U Benzodiazepines Scrn (NEGATIVE) U Oth Cocaine Metabols (NEGATIVE) U Cannabinoids Screen (NEGATIVE) Hepatitis A IgM Ab Negative (NEGATIVE) Hep Bs Antigen Negative (NEGATIVE) Hep B Core IgM Ab Negative (NEGATIVE) Hepatitis C Antibody Reactive (NEGATIVE) 07/11/18 07/11/18 07/11/18 Range/Units 18:54 15:17 14:51 WBC (4.8-10.8) K/uL RBC (3.80-5.20) Mil/uL Hgb (12.0-16.0) g/dL Hct (34.0-47.0) % MCV (81.0-99.0) fl MCH (27.0-31.0) pg MCHC (33.0-37.0) g/dL RDW (11.5-14.5) % Plt Count (130-400) K/uL MPV (7.2-11.7) fl Neut % (Auto) (50.0-75.0) % Lymph % (Auto) (20.0-40.0) % Story % (Auto) (0.0-10.0) % Eos % (Auto) (0.0-4.0) % Baso % (Auto) (0.0-2.0) % Neut # (Auto) (1.8-7.0) K/uL Lymph # (Auto) (1.0-4.3) K/uL Story # (Auto) (0.0-0.8) K/uL Eos # (Auto) (0.0-0.7) K/uL Baso # (Auto) (0.0-0.2) K/uL Neutrophils % (Manual) (42-75) % Lymphocytes % (Manual) (20-50) % Monocytes % (Manual) (0-10) % Platelet Estimate (NORMAL) Anisocytosis (manual) PT (9.8-13.1) Seconds INR APTT (25.6-37.1) Seconds pCO2 61 H (35-45) mm/Hg pO2 101 H (80-100) mm/Hg HCO3 19.8 L (21-28) mmol/L ABG pH 7.18 L* (7.35-7.45) ABG Total CO2 24.7 (22-28) mmol/L ABG O2 Saturation 98.3 H (95-98) % ABG O2 Content (15-23) ML/dL ABG Base Excess -6.5 L (-2.0-3.0) mmol/L ABG Hemoglobin (11.7-17.4) g/dL ABG Carboxyhemoglobin (0.5-1.5) % POC ABG HHb (Measured) (0.0-5.0) % ABG Methemoglobin (0.0-3.0) % ABG O2 Capacity (16-24) mL/dL Bob Test Yes ABG Potassium 4.6 (3.6-5.2) mmol/L A-a O2 Difference 536.0 mm/Hg Hgb O2 Saturation (95.0-98.0) % Sodium 134.0 (132-148) mmol/L Chloride 103.0 (98-107) mmol/L Glucose 312 H (65-105) mg/dL Lactate 0.9 (0.7-2.1) mmol/L Vent Mode Nrm Mechanical Rate FiO2 100.0 % Tidal Volume PEEP Crit Value Called To Dr galilea watson Crit Value Called By 6075 Crit Value Read Back Y Blood Gas Notified Time 1527 Potassium (3.6-5.0) MMOL/L Carbon Dioxide (22-30) mmol/L Anion Gap (10-20) BUN (7-17) mg/dl Creatinine (0.7-1.2) mg/dl Est GFR ( Amer) Est GFR (Non-Af Amer) POC Glucose (mg/dL) (65-110) mg/dL Random Glucose (65-105) mg/dL Calcium (8.4-10.2) mg/dL Total Bilirubin (0.2-1.3) mg/dl Direct Bilirubin (0.0-0.4) mg/ml AST (14-36) U/L ALT (9-52) U/L Alkaline Phosphatase (38-126) U/L Ammonia (11-51) umo/L Total Creatine Kinase (30-135) U/L Troponin I (0.00-0.120) ng/mL Total Protein (6.3-8.2) G/DL Albumin (3.5-5.0) g/dL Globulin (2.2-3.9) gm/dL Albumin/Globulin Ratio (1.0-2.1) Procalcitonin (0.19-0.49) NG/ML Prolactin (3.0-18.9) ng/mL Arterial Blood Potassium 4.6 (3.6-5.2) mmol/L Urine Color (YELLOW) Urine Clarity (Clear) Urine pH (5.0-8.0) Ur Specific [place] (1.003-1.030) Urine Protein (NEGATIVE) mg/dL Urine Glucose (UA) (NEGATIVE) mg/dL Urine Ketones (NEGATIVE) mg/dL Urine Blood (NEGATIVE) Urine Nitrate (NEGATIVE) Urine Bilirubin (NEGATIVE) Urine Urobilinogen (0.2-1.0) mg/dL Ur Leukocyte Esterase (Negative) Nevin/uL Urine RBC (Auto) (0-3) /hpf Urine Microscopic WBC (0-5) /hpf Ur Squamous Epith Cells (0-5) /hpf Urine Bacteria (<OCC) Hyaline Casts (0-2) /hpf Ur Random Sodium 27 meq/L Ur Random Potassium 81.9 mmol/L Urine Opiates Screen Positive H (NEGATIVE) Urine Methadone Screen Negative (NEGATIVE) Ur Barbiturates Screen Negative (NEGATIVE) Ur Phencyclidine Scrn Negative (NEGATIVE) Ur Amphetamines Screen Negative (NEGATIVE) U Benzodiazepines Scrn Positive (NEGATIVE) U Oth Cocaine Metabols Negative (NEGATIVE) U Cannabinoids Screen Negative (NEGATIVE) Hepatitis A IgM Ab (NEGATIVE) Hep Bs Antigen (NEGATIVE) Hep B Core IgM Ab (NEGATIVE) Hepatitis C Antibody (NEGATIVE) 07/11/18 Range/Units 11:56 WBC (4.8-10.8) K/uL RBC (3.80-5.20) Mil/uL Hgb (12.0-16.0) g/dL Hct (34.0-47.0) % MCV (81.0-99.0) fl MCH (27.0-31.0) pg MCHC (33.0-37.0) g/dL RDW (11.5-14.5) % Plt Count (130-400) K/uL MPV (7.2-11.7) fl Neut % (Auto) (50.0-75.0) % Lymph % (Auto) (20.0-40.0) % Story % (Auto) (0.0-10.0) % Eos % (Auto) (0.0-4.0) % Baso % (Auto) (0.0-2.0) % Neut # (Auto) (1.8-7.0) K/uL Lymph # (Auto) (1.0-4.3) K/uL Story # (Auto) (0.0-0.8) K/uL Eos # (Auto) (0.0-0.7) K/uL Baso # (Auto) (0.0-0.2) K/uL Neutrophils % (Manual) (42-75) % Lymphocytes % (Manual) (20-50) % Monocytes % (Manual) (0-10) % Platelet Estimate (NORMAL) Anisocytosis (manual) PT (9.8-13.1) Seconds INR APTT (25.6-37.1) Seconds pCO2 (35-45) mm/Hg pO2 (80-100) mm/Hg HCO3 (21-28) mmol/L ABG pH (7.35-7.45) ABG Total CO2 (22-28) mmol/L ABG O2 Saturation (95-98) % ABG O2 Content (15-23) ML/dL ABG Base Excess (-2.0-3.0) mmol/L ABG Hemoglobin (11.7-17.4) g/dL ABG Carboxyhemoglobin (0.5-1.5) % POC ABG HHb (Measured) (0.0-5.0) % ABG Methemoglobin (0.0-3.0) % ABG O2 Capacity (16-24) mL/dL Bob Test ABG Potassium (3.6-5.2) mmol/L A-a O2 Difference mm/Hg Hgb O2 Saturation (95.0-98.0) % Sodium (132-148) mmol/L Chloride (98-107) mmol/L Glucose (65-105) mg/dL Lactate (0.7-2.1) mmol/L Vent Mode Mechanical Rate FiO2 % Tidal Volume PEEP Crit Value Called To Crit Value Called By Crit Value Read Back Blood Gas Notified Time Potassium (3.6-5.0) MMOL/L Carbon Dioxide (22-30) mmol/L Anion Gap (10-20) BUN (7-17) mg/dl Creatinine (0.7-1.2) mg/dl Est GFR ( Amer) Est GFR (Non-Af Amer) POC Glucose (mg/dL) 157 H (65-110) mg/dL Random Glucose (65-105) mg/dL Calcium (8.4-10.2) mg/dL Total Bilirubin (0.2-1.3) mg/dl Direct Bilirubin (0.0-0.4) mg/ml AST (14-36) U/L ALT (9-52) U/L Alkaline Phosphatase (38-126) U/L Ammonia (11-51) umo/L Total Creatine Kinase (30-135) U/L Troponin I (0.00-0.120) ng/mL Total Protein (6.3-8.2) G/DL Albumin (3.5-5.0) g/dL Globulin (2.2-3.9) gm/dL Albumin/Globulin Ratio (1.0-2.1) Procalcitonin (0.19-0.49) NG/ML Prolactin (3.0-18.9) ng/mL Arterial Blood Potassium (3.6-5.2) mmol/L Urine Color (YELLOW) Urine Clarity (Clear) Urine pH (5.0-8.0) Ur Specific [place] (1.003-1.030) Urine Protein (NEGATIVE) mg/dL Urine Glucose (UA) (NEGATIVE) mg/dL Urine Ketones (NEGATIVE) mg/dL Urine Blood (NEGATIVE) Urine Nitrate (NEGATIVE) Urine Bilirubin (NEGATIVE) Urine Urobilinogen (0.2-1.0) mg/dL Ur Leukocyte Esterase (Negative) Nevin/uL Urine RBC (Auto) (0-3) /hpf Urine Microscopic WBC (0-5) /hpf Ur Squamous Epith Cells (0-5) /hpf Urine Bacteria (<OCC) Hyaline Casts (0-2) /hpf Ur Random Sodium meq/L Ur Random Potassium mmol/L Urine Opiates Screen (NEGATIVE) Urine Methadone Screen (NEGATIVE) Ur Barbiturates Screen (NEGATIVE) Ur Phencyclidine Scrn (NEGATIVE) Ur Amphetamines Screen (NEGATIVE) U Benzodiazepines Scrn (NEGATIVE) U Oth Cocaine Metabols (NEGATIVE) U Cannabinoids Screen (NEGATIVE) Hepatitis A IgM Ab (NEGATIVE) Hep Bs Antigen (NEGATIVE) Hep B Core IgM Ab (NEGATIVE) Hepatitis C Antibody (NEGATIVE) Laboratory Results - last 24 hr 07/11/18 07/11/18 07/11/18 11:56 14:51 15:17 WBC RBC Hgb Hct MCV MCH MCHC RDW Plt Count MPV Neut % (Auto) Lymph % (Auto) Story % (Auto) Eos % (Auto) Baso % (Auto) Neut # (Auto) Lymph # (Auto) Story # (Auto) Eos # (Auto) Baso # (Auto) Neutrophils % (Manual) Lymphocytes % (Manual) Monocytes % (Manual) Platelet Estimate Anisocytosis (manual) PT INR APTT pCO2 61 H pO2 101 H HCO3 19.8 L ABG pH 7.18 L* ABG Total CO2 24.7 ABG O2 Saturation 98.3 H ABG O2 Content ABG Base Excess -6.5 L ABG Hemoglobin ABG Carboxyhemoglobin POC ABG HHb (Measured) ABG Methemoglobin ABG O2 Capacity Bob Test Yes ABG Potassium 4.6 A-a O2 Difference 536.0 Hgb O2 Saturation Sodium 134.0 Chloride 103.0 Glucose 312 H Lactate 0.9 Vent Mode Nrm Mechanical Rate FiO2 100.0 Tidal Volume PEEP Crit Value Called To Dr galilea watson Crit Value Called By 6075 Crit Value Read Back Y Blood Gas Notified Time 1527 Potassium Carbon Dioxide Anion Gap BUN Creatinine Est GFR ( Amer) Est GFR (Non-Af Amer) POC Glucose (mg/dL) 157 H Random Glucose Calcium Total Bilirubin Direct Bilirubin AST ALT Alkaline Phosphatase Ammonia Total Creatine Kinase Troponin I Total Protein Albumin Globulin Albumin/Globulin Ratio Procalcitonin Prolactin Arterial Blood Potassium 4.6 Urine Color Urine Clarity Urine pH Ur Specific [place] Urine Protein Urine Glucose (UA) Urine Ketones Urine Blood Urine Nitrate Urine Bilirubin Urine Urobilinogen Ur Leukocyte Esterase Urine RBC (Auto) Urine Microscopic WBC Ur Squamous Epith Cells Urine Bacteria Hyaline Casts Ur Random Sodium Ur Random Potassium Urine Opiates Screen Positive H Urine Methadone Screen Negative Ur Barbiturates Screen Negative Ur Phencyclidine Scrn Negative Ur Amphetamines Screen Negative U Benzodiazepines Scrn Positive U Oth Cocaine Metabols Negative U Cannabinoids Screen Negative Hepatitis A IgM Ab Hep Bs Antigen Hep B Core IgM Ab Hepatitis C Antibody 07/11/18 07/11/18 07/11/18 18:54 18:54 19:12 WBC RBC Hgb Hct MCV MCH MCHC RDW Plt Count MPV Neut % (Auto) Lymph % (Auto) Story % (Auto) Eos % (Auto) Baso % (Auto) Neut # (Auto) Lymph # (Auto) Story # (Auto) Eos # (Auto) Baso # (Auto) Neutrophils % (Manual) Lymphocytes % (Manual) Monocytes % (Manual) Platelet Estimate Anisocytosis (manual) PT 11.5 INR 1.0 APTT 28.9 pCO2 pO2 HCO3 ABG pH ABG Total CO2 ABG O2 Saturation ABG O2 Content ABG Base Excess ABG Hemoglobin ABG Carboxyhemoglobin POC ABG HHb (Measured) ABG Methemoglobin ABG O2 Capacity Bob Test ABG Potassium A-a O2 Difference Hgb O2 Saturation Sodium Chloride Glucose Lactate Vent Mode Mechanical Rate FiO2 Tidal Volume PEEP Crit Value Called To Crit Value Called By Crit Value Read Back Blood Gas Notified Time Potassium Carbon Dioxide Anion Gap BUN Creatinine Est GFR ( Amer) Est GFR (Non-Af Amer) POC Glucose (mg/dL) Random Glucose Calcium Total Bilirubin Direct Bilirubin AST ALT Alkaline Phosphatase Ammonia Total Creatine Kinase Troponin I Total Protein Albumin Globulin Albumin/Globulin Ratio Procalcitonin Prolactin Arterial Blood Potassium Urine Color Dark yellow Urine Clarity Cloudy Urine pH 5.0 Ur Specific [place] 1.017 Urine Protein >=300 Urine Glucose (UA) Neg Urine Ketones Negative Urine Blood Moderate Urine Nitrate Negative Urine Bilirubin Negative Urine Urobilinogen 0.2-1.0 Ur Leukocyte Esterase Trace Urine RBC (Auto) 13 H Urine Microscopic WBC 9 H Ur Squamous Epith Cells 1 Urine Bacteria Occ H Hyaline Casts 0-2 Ur Random Sodium 27 Ur Random Potassium 81.9 Urine Opiates Screen Urine Methadone Screen Ur Barbiturates Screen Ur Phencyclidine Scrn Ur Amphetamines Screen U Benzodiazepines Scrn U Oth Cocaine Metabols U Cannabinoids Screen Hepatitis A IgM Ab Hep Bs Antigen Hep B Core IgM Ab Hepatitis C Antibody 07/11/18 07/11/18 07/11/18 19:17 19:28 19:52 WBC RBC Hgb Hct MCV MCH MCHC RDW Plt Count MPV Neut % (Auto) Lymph % (Auto) Story % (Auto) Eos % (Auto) Baso % (Auto) Neut # (Auto) Lymph # (Auto) Story # (Auto) Eos # (Auto) Baso # (Auto) Neutrophils % (Manual) Lymphocytes % (Manual) Monocytes % (Manual) Platelet Estimate Anisocytosis (manual) PT INR APTT pCO2 pO2 HCO3 ABG pH ABG Total CO2 ABG O2 Saturation ABG O2 Content ABG Base Excess ABG Hemoglobin ABG Carboxyhemoglobin POC ABG HHb (Measured) ABG Methemoglobin ABG O2 Capacity Bob Test ABG Potassium A-a O2 Difference Hgb O2 Saturation Sodium Chloride Glucose Lactate Vent Mode Mechanical Rate FiO2 Tidal Volume PEEP Crit Value Called To Crit Value Called By Crit Value Read Back Blood Gas Notified Time Potassium Carbon Dioxide Anion Gap BUN Creatinine Est GFR ( Amer) Est GFR (Non-Af Amer) POC Glucose (mg/dL) 54 L Random Glucose Calcium Total Bilirubin 0.2 Direct Bilirubin 0.2 AST 74 H D ALT 44 Alkaline Phosphatase 58 Ammonia Total Creatine Kinase 1062 H Troponin I 3.1800 H* Total Protein 7.3 Albumin 3.4 L Globulin 3.9 Albumin/Globulin Ratio 0.9 L Procalcitonin Prolactin Arterial Blood Potassium Urine Color Urine Clarity Urine pH Ur Specific [place] Urine Protein Urine Glucose (UA) Urine Ketones Urine Blood Urine Nitrate Urine Bilirubin Urine Urobilinogen Ur Leukocyte Esterase Urine RBC (Auto) Urine Microscopic WBC Ur Squamous Epith Cells Urine Bacteria Hyaline Casts Ur Random Sodium Ur Random Potassium Urine Opiates Screen Urine Methadone Screen Ur Barbiturates Screen Ur Phencyclidine Scrn Ur Amphetamines Screen U Benzodiazepines Scrn U Oth Cocaine Metabols U Cannabinoids Screen Hepatitis A IgM Ab Negative Hep Bs Antigen Negative Hep B Core IgM Ab Negative Hepatitis C Antibody Reactive 07/11/18 07/11/18 07/11/18 20:23 21:23 21:28 WBC RBC Hgb Hct MCV MCH MCHC RDW Plt Count MPV Neut % (Auto) Lymph % (Auto) Story % (Auto) Eos % (Auto) Baso % (Auto) Neut # (Auto) Lymph # (Auto) Story # (Auto) Eos # (Auto) Baso # (Auto) Neutrophils % (Manual) Lymphocytes % (Manual) Monocytes % (Manual) Platelet Estimate Anisocytosis (manual) PT INR APTT pCO2 pO2 HCO3 ABG pH ABG Total CO2 ABG O2 Saturation ABG O2 Content ABG Base Excess ABG Hemoglobin ABG Carboxyhemoglobin POC ABG HHb (Measured) ABG Methemoglobin ABG O2 Capacity Bob Test ABG Potassium A-a O2 Difference Hgb O2 Saturation Sodium Chloride Glucose Lactate Vent Mode Mechanical Rate FiO2 Tidal Volume PEEP Crit Value Called To Crit Value Called By Crit Value Read Back Blood Gas Notified Time Potassium Carbon Dioxide Anion Gap BUN Creatinine Est GFR ( Amer) Est GFR (Non-Af Amer) POC Glucose (mg/dL) 100 Random Glucose Calcium Total Bilirubin Direct Bilirubin AST ALT Alkaline Phosphatase Ammonia Total Creatine Kinase Troponin I Total Protein Albumin Globulin Albumin/Globulin Ratio Procalcitonin 0.64 H Prolactin 26.3 H Arterial Blood Potassium Urine Color Urine Clarity Urine pH Ur Specific [place] Urine Protein Urine Glucose (UA) Urine Ketones Urine Blood Urine Nitrate Urine Bilirubin Urine Urobilinogen Ur Leukocyte Esterase Urine RBC (Auto) Urine Microscopic WBC Ur Squamous Epith Cells Urine Bacteria Hyaline Casts Ur Random Sodium Ur Random Potassium Urine Opiates Screen Urine Methadone Screen Ur Barbiturates Screen Ur Phencyclidine Scrn Ur Amphetamines Screen U Benzodiazepines Scrn U Oth Cocaine Metabols U Cannabinoids Screen Hepatitis A IgM Ab Hep Bs Antigen Hep B Core IgM Ab Hepatitis C Antibody 07/12/18 07/12/1807/12/18 00:17 00:30 00:47 WBC RBC Hgb Hct MCV MCH MCHC RDW Plt Count MPV Neut % (Auto) Lymph % (Auto) Story % (Auto) Eos % (Auto) Baso % (Auto) Neut # (Auto) Lymph # (Auto) Story # (Auto) Eos # (Auto) Baso # (Auto) Neutrophils % (Manual) Lymphocytes % (Manual) Monocytes % (Manual) Platelet Estimate Anisocytosis (manual) PT INR APTT pCO2 56 H pO2 82 HCO3 19.7 L ABG pH 7.20 L ABG Total CO2 23.6 ABG O2 Saturation 96.0 ABG O2 Content 16.6 ABG Base Excess -6.6 L ABG Hemoglobin 12.5 ABG Carboxyhemoglobin 1.0 POC ABG HHb (Measured) 3.9 ABG Methemoglobin 1.3 ABG O2 Capacity 17.3 Bob Test Yes ABG Potassium A-a O2 Difference 561.0 Hgb O2 Saturation 93.8 L Sodium 139 Chloride 110 H Glucose Lactate Vent Mode Mechanical Rate FiO2 100.0 Tidal Volume PEEP Crit Value Called To Crit Value Called By Crit Value Read Back Blood Gas Notified Time Potassium 4.1 Carbon Dioxide 22 Anion Gap 11 BUN 42 H Creatinine 2.1 H Est GFR ( Amer) 29 Est GFR (Non-Af Amer) 24 POC Glucose (mg/dL) 103 Random Glucose 100 Calcium 7.9 L Total Bilirubin 0.3 Direct Bilirubin AST 93 H D ALT 44 Alkaline Phosphatase 69 Ammonia Total Creatine Kinase 1332 H Troponin I 3.6000 H* Total Protein 7.8 Albumin 3.6 Globulin 4.2 H Albumin/Globulin Ratio 0.9 L Procalcitonin Prolactin Arterial Blood Potassium Urine Color Urine Clarity Urine pH Ur Specific [place] Urine Protein Urine Glucose (UA) Urine Ketones Urine Blood Urine Nitrate Urine Bilirubin Urine Urobilinogen Ur Leukocyte Esterase Urine RBC (Auto) Urine Microscopic WBC Ur Squamous Epith Cells Urine Bacteria Hyaline Casts Ur Random Sodium Ur Random Potassium Urine Opiates Screen Urine Methadone Screen Ur Barbiturates Screen Ur Phencyclidine Scrn Ur Amphetamines Screen U Benzodiazepines Scrn U Oth Cocaine Metabols U Cannabinoids Screen Hepatitis A IgM Ab Hep Bs Antigen Hep B Core IgM Ab Hepatitis C Antibody 07/12/18 07/12/18 07/12/18 04:27 04:27 04:27 WBC 5.4 RBC 4.63 Hgb 12.6 Hct 40.2 MCV 86.7 MCH 27.1 MCHC 31.3 L RDW 17.7 H Plt Count 116 L D MPV 9.3 Neut % (Auto) 83.4 H Lymph % (Auto) 8.7 L Story % (Auto) 7.5 Eos % (Auto) 0.2 Baso % (Auto) 0.2 Neut # (Auto) 4.5 Lymph # (Auto) 0.5 L Story # (Auto) 0.4 Eos # (Auto) 0.0 Baso # (Auto) 0.0 Neutrophils % (Manual) 80 H Lymphocytes % (Manual) 16 L Monocytes % (Manual) 4 Platelet Estimate Slightly decreased L Anisocytosis (manual) Slight PT INR APTT pCO2 pO2 HCO3 ABG pH ABG Total CO2 ABG O2 Saturation ABG O2 Content ABG Base Excess ABG Hemoglobin ABG Carboxyhemoglobin POC ABG HHb (Measured) ABG Methemoglobin ABG O2 Capacity Bob Test ABG Potassium A-a O2 Difference Hgb O2 Saturation Sodium 141 Chloride 110 H Glucose Lactate Vent Mode Mechanical Rate FiO2 Tidal Volume PEEP Crit Value Called To Crit Value Called By Crit Value Read Back Blood Gas Notified Time Potassium 4.4 Carbon Dioxide 23 Anion Gap 12 BUN 44 H Creatinine 2.1 H Est GFR ( Amer) 29 Est GFR (Non-Af Amer) 24 POC Glucose (mg/dL) Random Glucose 113 H Calcium 7.9 L Total Bilirubin 0.3 Direct Bilirubin AST 98 H ALT 51 Alkaline Phosphatase 64 Ammonia 36 D Total Creatine Kinase 1359 H Troponin I Total Protein 7.5 Albumin 3.4 L Globulin 4.1 H Albumin/Globulin Ratio 0.8 L Procalcitonin Prolactin Arterial Blood Potassium Urine Color Urine Clarity Urine pH Ur Specific [place] Urine Protein Urine Glucose (UA) Urine Ketones Urine Blood Urine Nitrate Urine Bilirubin Urine Urobilinogen Ur Leukocyte Esterase Urine RBC (Auto) Urine Microscopic WBC Ur Squamous Epith Cells Urine Bacteria Hyaline Casts Ur Random Sodium Ur Random Potassium Urine Opiates Screen Urine Methadone Screen Ur Barbiturates Screen Ur Phencyclidine Scrn Ur Amphetamines Screen U Benzodiazepines Scrn U Oth Cocaine Metabols U Cannabinoids Screen Hepatitis A IgM Ab Hep Bs Antigen Hep B Core IgM Ab Hepatitis C Antibody 07/12/18 07/12/18 07/12/18 05:37 05:46 11:15 WBC RBC Hgb Hct MCV MCH MCHC RDW Plt Count MPV Neut % (Auto) Lymph % (Auto) Story % (Auto) Eos % (Auto) Baso % (Auto) Neut # (Auto) Lymph # (Auto) Story # (Auto) Eos # (Auto) Baso # (Auto) Neutrophils % (Manual) Lymphocytes % (Manual) Monocytes % (Manual) Platelet Estimate Anisocytosis (manual) PT INR APTT pCO2 46 H pO2 81 HCO3 25.0 ABG pH 7.36 ABG Total CO2 27.4 ABG O2 Saturation 96.9 ABG O2 Content 15.9 ABG Base Excess 0.2 ABG Hemoglobin 11.8 ABG Carboxyhemoglobin 0.9 POC ABG HHb (Measured) 3.0 ABG Methemoglobin 1.0 ABG O2 Capacity 16.4 Bob Test Yes ABG Potassium A-a O2 Difference 289.0 Hgb O2 Saturation 95.1 Sodium Chloride Glucose Lactate Vent Mode A/c Mechanical Rate 16 FiO2 60.0 Tidal Volume 450 PEEP 5 Crit Value Called To Crit Value Called By Crit Value Read Back Blood Gas Notified Time Potassium Carbon Dioxide Anion Gap BUN Creatinine Est GFR ( Amer) Est GFR (Non-Af Amer) POC Glucose (mg/dL) 122 H Random Glucose Calcium Total Bilirubin Direct Bilirubin AST ALT Alkaline Phosphatase Ammonia Total Creatine Kinase Troponin I 3.5100 H* Total Protein Albumin Globulin Albumin/Globulin Ratio Procalcitonin Prolactin Arterial Blood Potassium Urine Color Urine Clarity Urine pH Ur Specific [place] Urine Protein Urine Glucose (UA) Urine Ketones Urine Blood Urine Nitrate Urine Bilirubin Urine Urobilinogen Ur Leukocyte Esterase Urine RBC (Auto) Urine Microscopic WBC Ur Squamous Epith Cells Urine Bacteria Hyaline Casts Ur Random Sodium Ur Random Potassium Urine Opiates Screen Urine Methadone Screen Ur Barbiturates Screen Ur Phencyclidine Scrn Ur Amphetamines Screen U Benzodiazepines Scrn U Oth Cocaine Metabols U Cannabinoids Screen Hepatitis A IgM Ab Hep Bs Antigen Hep B Core IgM Ab Hepatitis C Antibody 07/12/18 12:56 WBC RBC Hgb Hct MCV MCH MCHC RDW Plt Count MPV Neut % (Auto) Lymph % (Auto) Story % (Auto) Eos % (Auto) Baso % (Auto) Neut # (Auto) Lymph # (Auto) Story # (Auto) Eos # (Auto) Baso # (Auto) Neutrophils % (Manual) Lymphocytes % (Manual) Monocytes % (Manual) Platelet Estimate Anisocytosis (manual) PT INR APTT pCO2 pO2 HCO3 ABG pH ABG Total CO2 ABG O2 Saturation ABG O2 Content ABG Base Excess ABG Hemoglobin ABG Carboxyhemoglobin POC ABG HHb (Measured) ABG Methemoglobin ABG O2 Capacity Bob Test ABG Potassium A-a O2 Difference Hgb O2 Saturation Sodium Chloride Glucose Lactate Vent Mode Mechanical Rate FiO2 Tidal Volume PEEP Crit Value Called To Crit Value Called By Crit Value Read Back Blood Gas Notified Time Potassium Carbon Dioxide Anion Gap BUN Creatinine Est GFR ( Amer) Est GFR (Non-Af Amer) POC Glucose (mg/dL) 118 H Random Glucose Calcium Total Bilirubin Direct Bilirubin AST ALT Alkaline Phosphatase Ammonia Total Creatine Kinase Troponin I Total Protein Albumin Globulin Albumin/Globulin Ratio Procalcitonin Prolactin Arterial Blood Potassium Urine Color Urine Clarity Urine pH Ur Specific [place] Urine Protein Urine Glucose (UA) Urine Ketones Urine Blood Urine Nitrate Urine Bilirubin Urine Urobilinogen Ur Leukocyte Esterase Urine RBC (Auto) Urine Microscopic WBC Ur Squamous Epith Cells Urine Bacteria Hyaline Casts Ur Random Sodium Ur Random Potassium Urine Opiates Screen Urine Methadone Screen Ur Barbiturates Screen Ur Phencyclidine Scrn Ur Amphetamines Screen U Benzodiazepines Scrn U Oth Cocaine Metabols U Cannabinoids Screen Hepatitis A IgM Ab Hep Bs Antigen Hep B Core IgM Ab Hepatitis C Antibody Radiology Impressions: Radiology Impressions Head CT 07/11/18 16:30 IMPRESSION: Moderate nonspecific white matter changes. More prominent hypodense focus noted in the left centrum semiovale region. MRI with diffusion imaging suggested for further evaluation if indicated. Increased attenuation of the bilateral maxillary sinus contents may indicate proteinaceous material or fungal colonization. Mucosal thickening of the ethmoid air cells. Findings discussed with Dr. Galilea Watson on 07/11/18 at 6:04 p.m. Chest X-Ray 07/11/18 22:19 IMPRESSION: Interval development of right lower lobe collapse. Persistent subsegmental atelectasis in the left lower lobe. Chest X-Ray 07/12/18 09:59 IMPRESSION: Improved aeration right lung. Satisfactory position of recently placed support apparatus. EKG/Cardiology Studies: Cardiology / EKG Studies 07/12/18 07:00 ELECTROCARDIOGRAM Routine Comment: Mode Of Transportation: Reason For Exam: elevated troponin Isolation: Droplet Fingerstick Blood Sugar Results: 118 Review of Systems - Review of Systems Systems not reviewed;Unavailable: Altered Mental Status Assessment/Plan (1) CVA (cerebral vascular accident) Assessment and plan: 58 y/o F with PMhx of HIV, Substance abuse, Asthma, bipolar disorder, Hep C. found down at home. Admitted for suspected heroin overdose, with positive opioid and long known history. Neuro exam was obfuscated given heroin use. This morning found to have right sided hemiparesis. Neuro: Brain MRI shows left posterior parietal ischemic stroke. ASA started. not a candidate for tPA given unknown time of onset. Neuro - Dr. Sonny Zhang: acute respiratory failure with hypercarbia, required intubation, now on PRVC. Patient started waking up post intubation, sedated with propofol for obtaining head MRI. Aspiration pneumonia in RLL. CV: hemodynamically stable. Hem: no acute issues Renal: acute kidney injury with mild rhabdomyolysis. LR@75. Endo: no acute issues GI: NPO, Jevity@20, goal 64. ID: no leucocytosis, but possibly immunocompromised with HIV with low CD4 count, aspiration pneumonia, continue levaquin, vancomycin, bactrim. ID - Dr. Velazco DVT proph - lovenox GI proph - protonix alberto for strict I/O's during acute illness Code status - full code Critical Care Time spent 35 minutes Multi-disciplinary rounds were performed with house staff, nursing, speech therapy, respiratory therapy, pharmacy and nutrition with integrated input from the primary team/attending and other consulting services. The documented time is cumulative and includes review of patient data/exams/labs/chart review and examination of the patient on rounds and throughout the day; time is exclusive of any procedures or teaching time. Current Visit: Yes Status: Acute
--- NOTE | 2018-07-12 14:48 | MRI ---
Date of service: 07/12/2018 PROCEDURE: MRI BRAIN WITHOUT CONTRAST HISTORY: AMS with unclear COMPARISON: Noncontrast head CT from 07/11/2018. TECHNIQUE: Multiplanar, multisequence MR images of the brain were obtained without intravenous contrast enhancement. FINDINGS: HEMORRHAGE: None DWI: There are multifocal areas of restricted diffusion in the left posterior parietal lobe also involving the centrum semiovale, posterior corral radiata and periatrial white matter. There are multiple smaller foci of restricted diffusion in bilateral parietal subcortical white matter, and left parieto-occipital white matter. BRAIN PARENCHYMA: There is T2/FLAIR hyperintense signal corresponding to the areas of restricted diffusion. There is no mass or mass effect. The midline sagittal structures are normal. There is asymmetric increased FLAIR signal in the left parietal cortical sulci. VENTRICLES: The ventricles are normal in size, shape and configuration. CRANIUM: There is normal bone marrow signal pattern. ORBITS: Grossly unremarkable. PARANASAL SINUSES/MASTOIDS: There is severe mucosal thickening in the paranasal sinuses, worse in the maxillary sinuses with near complete opacification. There are bilateral mastoid effusions. VASCULAR SYSTEM: There are normal signal voids in the larger intracranial arteries. OTHER FINDINGS: None. IMPRESSION: 1. Multifocal late acute/early subacute infarctions in the left posterior parietal lobe. 2. Small foci of late acute/early subacute infarctions in bilateral parietal subcortical white matter. 3. Increased FLAIR hyperintensity in the left parietal cortical sulci is nonspecific, the differential considerations include subarachnoid hemorrhage, oxygen/anesthesia induced hyperintensity or nonspecific/proteinaceous hyperintense CSF. Clinical follow-up is advised and if clinically indicated, correlation with CT scan may be performed to exclude subarachnoid hemorrhage. Important findings were discussed with Dr. Roche in the ICU on 07/12/2018 at 2:44 p.m.
--- NOTE | 2018-07-12 15:38 | CP.PCM.PN ---
<Marko Belcher - Last Filed: 07/12/18 17:43> Subjective - Date & Time of Evaluation Date of Evaluation: 07/12/18 Time of Evaluation: 09:00 - Subjective Subjective: 58 y/o F was seen and evaluated by bedside. Pt was sleeping, not alert, responds to verbal and tactile stimuli but does NOT follow commands. Pt was afebrile, tem p <100.4 F. No acute events. Objective - Vital Signs/Intake and Output Vital Signs (last 24 hours): Temp Pulse Resp BP Pulse Ox 98.1 F 85 20 111/59 L 97 07/12/18 08:00 07/12/18 08:00 07/12/18 08:00 07/12/18 08:00 07/12/18 08:00 Intake and Output: 07/12/18 07/12/18 06:59 18:59 Intake Total 150 Balance 150 - Medications Medications: Current Medications Acetaminophen (Tylenol 325mg Tab) 650 mg PO Q6 PRN PRN Reason: Fever >100.4 F Albuterol/Ipratropium (Duoneb 3 Mg/0.5 Mg (3 Ml) Ud) 3 ml INH RQ4 PRN PRN Reason: Shortness of Breath Last Admin: 07/11/18 23:01 Dose: 3 ml Aspirin (Aspirin Chewable) 81 mg PO DAILY [facility] Dextrose (Dextrose 50% Inj) 0 ml IV STAT PRN; Protocol PRN Reason: Hypoglycemia Protocol Dextrose (Glutose 15) 0 gm PO ONCE PRN; Protocol PRN Reason: Hypoglycemia Protocol Dolutegravir Sodium (Tivicay) 50 mg PO DAILY [facility]AY; Protocol Emtricitabine/Tenofovir (Truvada 200 Mg-300 Mg) 1 tab PO DAILY [facility]; Protocol Enoxaparin Sodium (Lovenox) 30 mg SC DAILY [facility]; Protocol Glucagon (Glucagen Diagnostic Kit) 0 mg IM STAT PRN; Protocol PRN Reason: Hypoglycemia Protocol Levofloxacin/Dextrose (Levaquin 750mg) 750 mg in 150 mls @ 100 mls/hr IVPB Q48H [facility] Lactated Ringer's (Lactated Ringer's) 1,000 mls @ 75 mls/hr IV .[id number] FAY Propofol (Diprivan) 1,000 mg in 100 mls @ 2.21 mls/hr IV .Q24H [facility]AY; Protocol Stop: 07/13/18 13:19 Last Admin: 07/12/18 13:00 Dose: 5 mcg/kg/min, 2.21 mls/hr Insulin Human Regular (Humulin R) 0 units SC ACHS [facility]; Protocol Last Admin: 07/12/18 12:30 Dose: Not Given Midazolam HCl (Versed Inj) 2 mg IV Q6 PRN PRN Reason: Agitation Last Admin: 07/12/18 11:57 Dose: 2 mg Oseltamivir Phosphate (Tamiflu Cap) 75 mg PO BID [facility]; Protocol Last Admin: 07/12/18 12:00 Dose: 75 mg Pantoprazole Sodium (Protonix Ec Tab) 40 mg PO DAILY [facility] Trimethoprim/Sulfamethoxazole (Sulfatrim Pediatric Susp) 20 ml PO Q12 [facility]; Protocol - Labs Labs: 07/12/18 04:27 07/12/18 04:27 PT 11.5 Seconds (9.8-13.1) 07/11/18 19:12 INR 1.0 07/11/18 19:12 APTT 28.9 Seconds (25.6-37.1) 07/11/18 19:12 - Constitutional Appears: Chronically Ill - Head Exam Head Exam: ATRAUMATIC, NORMAL INSPECTION - ENT Exam ENT Exam: Mucous Membranes Dry - Neck Exam Neck Exam: Full ROM, Normal Inspection - Respiratory Exam Respiratory Exam: NORMAL BREATHING PATTERN. absent: Rales, Rhonchi, Wheezes - Cardiovascular Exam Cardiovascular Exam: REGULAR RHYTHM, +S1, +S2 - GI/Abdominal Exam GI & Abdominal Exam: Soft. absent: Distended, Guarding, Rigid, Tenderness - Extremities Exam Extremities Exam: absent: Calf Tenderness, Pedal Edema - Neurological Exam Neurological Exam: Altered. absent: Oriented x3 Assessment and Plan - Assessment and Plan (Free Text) Assessment: 58 y/o F with PMhx of positive HIV, Substance abuse, Asthma, bipolar disorder, Chronic Hep C was brought by EMS after being found unconscious and lethargic. --Head CT: suggestive of left sided ischemia --CXR: Confluent airspace disease in the lower lobes may represent pneumonia. Fullness in the right suprahilar region is nonspecific and could be vascular in etiology however consider hilar adenopathy/mass. Plan: >Toxic metabolic encephalopathy --Likely secondary to drug use vs seizure --Urine screen positive for opiates and bezodiazepines --MRI Brain: multifocal late acute/early subacte infarctions in L posterior parietal lobe, late acute/early subacute infarctions in L posterior parietal lobe, increased FLAIR hyperintensity in L cortical sulci (possibly subarachnoid hemorrhage, non-specific proteinaceous hyperintense CSF) --Neurologic consult Dr Dennis, recommendations appreciated --seizures precautions --f/u labs in am >Acute/Subacute ischemic CVA with R hemiparesis. --MRI Brain: multifocal late acute/early subacte infarctions in L posterior parietal lobe, late acute/early subacute infarctions in L posterior parietal lobe, increased FLAIR hyperintensity in L cortical sulci (possibly subarachnoid hemorrhage, non-specific proteinaceous hyperintense CSF) --Neurologic consult Dr Dennis, recommendations appreciated >Influenza viral infection --afebrile, WBC wnl --positive influenza serology --Contact precautions --ID consult, Dr Velazco. >Community acquired Pneumonia --Afebrile, no white count, lactate 0.9 --likely influenza pneumonia due to positive influenza serology --ID consult, Dr Velazco. --Levaquin IV , renal dose --1x dose of Vancomycin as per ID, Dr Velazco. >Acute renal injury --Dehydration vs rhabdomyolysis --BUN/Cr 44/2.1 --monitor CPK --continue IVF >Elevated troponins --Cardiology on board, Dr Zahra Guevara. --Probably secondary to rhabdomyolysis. --F/U CPK serum levels >Rhabdomyolysis --Hx of seizures --seizures after intoxication or CVA. --Continue IV gentle hydration since JOE. >HIV --Home medication resumed. --HIV viral load and CD4 count ordered --Screen for oportunistic infections. --ID consult, Dr Velazco. >Chronic hepatitis C --Chronic --HCV vral load ordered --ID consult, Dr Velazco. >Prophylaxis --Enoxapain 30mg daily <Renee Moreno - Last Filed: 07/14/18 00:26> Objective - Vital Signs/Intake and Output Vital Signs (last 24 hours): Temp Pulse Resp BP Pulse Ox 102.3 F H 99 H 24 149/88 100 07/13/18 23:42 07/13/18 20:00 07/13/18 20:00 07/13/18 20:00 07/13/18 20:00 Intake and Output: 07/13/18 07/14/18 18:59 06:59 Intake Total 1925 60 Output Total 900 Balance 1025 60 - Medications Medications: Current Medications Acetaminophen (Tylenol 650mg/20.3ml Solution Ud) 650 mg PO Q4H PRN PRN Reason: Temperature Last Admin: 07/13/18 23:42 Dose: 650 mg Albuterol/Ipratropium (Duoneb 3 Mg/0.5 Mg (3 Ml) Ud) 3 ml INH RQ4 AFY Last Admin: 07/13/18 23:20 Dose: 3 ml Aspirin (Ecotrin) 325 mg PO DAILY [facility] Last Admin: 07/13/18 09:39 Dose: 325 mg Atorvastatin Calcium (Lipitor) 20 mg PO HS FAY Last Admin: 07/13/18 23:42 Dose: 20 mg Dextrose (Dextrose 50% Inj) 0 ml IV STAT PRN; Protocol PRN Reason: Hypoglycemia Protocol Dextrose (Glutose 15) 0 gm PO ONCE PRN; Protocol PRN Reason: Hypoglycemia Protocol Dolutegravir Sodium (Tivicay) 50 mg PO DAILY [facility]; Protocol Last Admin: 07/13/18 09:08 Dose: 50 mg Emtricitabine/Tenofovir (Truvada 200 Mg-300 Mg) 1 tab PO DAILY [facility]; Protocol Last Admin: 07/13/18 09:08 Dose: 1 tab Enoxaparin Sodium (Lovenox) 30 mg SC DAILY [facility]; Protocol Last Admin: 07/13/18 09:39 Dose: 30 mg Glucagon (Glucagen Diagnostic Kit) 0 mg IM STAT PRN; Protocol PRN Reason: Hypoglycemia Protocol Levofloxacin/Dextrose (Levaquin 750mg) 750 mg in 150 mls @ 100 mls/hr IVPB Q48H [facility] Last Admin: 07/13/18 09:10 Dose: 100 mls/hr Dexmedetomidine HCl 400 mcg/ (Sodium Chloride) 100 mls @ 3.68 mls/hr IV .Q24H [facility]; Protocol Stop: 07/14/18 07:49 Last Admin: 07/13/18 16:05 Dose: 2 mcg/kg/hr, 36.83 mls/hr Acyclovir 500 mg/ Sodium (Chloride) 100 mls @ 100 mls/hr IV Q12H [facility]; Protocol Last Admin: 07/13/18 16:37 Dose: 100 mls/hr Insulin Human Regular (Humulin R) 0 units SC ACHS [facility]; Protocol Last Admin: 07/13/18 22:00 Dose: Not Given Lactobacillus Acidophilus (Bacid Acidophilus) 1 cap PO BID [facility] Last Admin: 07/13/18 16:36 Dose: 1 cap Midazolam HCl (Versed Inj) 2 mg IV Q6 PRN PRN Reason: Agitation Last Admin: 07/13/18 20:15 Dose: 2 mg Oseltamivir Phosphate (Tamiflu Cap) 75 mg PO BID [facility]; Protocol Last Admin: 07/13/18 16:37 Dose: 75 mg Pantoprazole Sodium (Protonix Ec Tab) 40 mg PO DAILY [facility] Last Admin: 07/13/18 09:07 Dose: 40 mg Trimethoprim/Sulfamethoxazole (Sulfatrim Pediatric Susp) 20 ml PO Q12 [facility]; Protocol Last Admin: 07/13/18 22:19 Dose: 20 ml - Labs Labs: 07/13/18 04:29 07/13/18 04:29 PT 11.5 Seconds (9.8-13.1) 07/11/18 19:12 INR 1.0 07/11/18 19:12 APTT 28.9 Seconds (25.6-37.1) 07/11/18 19:12 Attending/Attestation - Attestation I have personally seen and examined this patient.: Yes I have fully participated in the care of the patient.: Yes I have reviewed all pertinent clinical information, including history, physical exam and plan: Yes Notes (Text): 07/14/18 00:23 agree with findings and plan as above r sided hemiparesis. +MRI post parietal infarct pt intubated, sedated wtih precedex 2/2 acute hypoxic resp failure. discussed at length with hospital clerk
--- NOTE | 2018-07-12 16:27 | CP.PCM.CON ---
History of Present Illness - History of Present Illness History of Present Illness: As per chart: 58 y/o F with PMhx of HIV, Substance abuse, Asthma, bipolar disorder, Hep C presented to ED via EMS after being found unconscious. Per ED doctor pt received Narcan x1 form EMS and she is s/p another dose in ED. On arrival patient was unable to provide history and at physical exam she still lethargic and unable to provide any information. Patient open her eyes with voice and move her head from left to right but unable to follow any other commands. Per EMS, patient is suspected of opoids and Benzodiazepines. PMD: at [facility] Per Records: PMH: HIV, HCV, polysubstance abuse, bipolar disorder, Asthma, HTN, seizure disorder Medications: see bellow Allergies: PCN Surgical hx: denies Social: +benzodiazepenes, denies heroin, marijuana, cocaine, tobacco recently. Hx of heroin abuse Family hx: unknown On exam: Patient is on sedation. Patient is intubated, and is not responsive. PERRL. No dolls eyes,gag and corneals present. Does not withdraw to sternal rub. This exam is limited by sedation at this time. +2 dtr ul and ll bl. Toes downgoing. NO clonus. Past Patient History - Infectious Disease Hx of Infectious Diseases: None - Past Medical History & Family History Past Medical History?: Yes - Past Social History Smoking Status: UNKNOWN - CARDIAC Hx Atrial Fibrillation: No Hx Cardia Arrhythmia: No Hx Congestive Heart Failure: No Hx Hypercholesterolemia: Yes Hx Hypertension: Yes Hx Mitral Valve Prolapse: Yes Hx Pacemaker: No Hx Peripheral Edema: No - PULMONARY Hx Asthma: Yes Hx Bronchitis: Yes Hx Chronic Obstructive Pulmonary Disease (COPD): Yes Hx Emphysema: No Hx Pneumonia: No Hx Pulmonary Embolism: No Hx Sleep Apnea: No - NEUROLOGICAL Hx Seizures: Yes Hx Transient Ischemic Attacks (TIA): No - HEENT Hx HEENT Problems: No - RENAL Hx Chronic Kidney Disease: No - ENDOCRINE/METABOLIC Hx Endocrine Disorders: No - HEMATOLOGICAL/ONCOLOGICAL Hx Anemia: Yes Hx Human Immunodeficiency Virus (HIV): Yes Hx Sickle Cell Disease: No - INTEGUMENTARY Hx Dermatological Problems: No - MUSCULOSKELETAL/RHEUMATOLOGICAL Hx Musculoskeletal Disorders: No Hx Falls: Yes - GASTROINTESTINAL Hx Gastrointestinal Disorders: No - GENITOURINARY/GYNECOLOGICAL Hx Sexually Transmitted Disorders: No (Patient denied) - PSYCHIATRIC Hx Anxiety: Yes Hx Bipolar Disorder: Yes Hx Depression: Yes Hx Paranoia: Yes Hx Substance Use: Yes - SURGICAL HISTORY Hx Tonsillectomy: Yes - ANESTHESIA Hx Anesthesia: Yes Hx Anesthesia Reactions: No Hx Malignant Hyperthermia: No Meds Allergies/Adverse Reactions: Allergies Allergy/AdvReac Type Severity Reaction Status Date / Time Penicillins Allergy pt reports Verified 07/03/18 08:00 seizures - Medications Medications: Current Medications Acetaminophen (Tylenol 325mg Tab) 650 mg PO Q6 PRN PRN Reason: Fever >100.4 F Albuterol/Ipratropium (Duoneb 3 Mg/0.5 Mg (3 Ml) Ud) 3 ml INH RQ4 PRN PRN Reason: Shortness of Breath Last Admin: 07/11/18 23:01 Dose: 3 ml Aspirin (Aspirin Chewable) 81 mg PO DAILY [facility]AY Last Admin: 07/12/18 15:46 Dose: Not Given Dextrose (Dextrose 50% Inj) 0 ml IV STAT PRN; Protocol PRN Reason: Hypoglycemia Protocol Dextrose (Glutose 15) 0 gm PO ONCE PRN; Protocol PRN Reason: Hypoglycemia Protocol Dolutegravir Sodium (Tivicay) 50 mg PO DAILY [facility]; Protocol Emtricitabine/Tenofovir (Truvada 200 Mg-300 Mg) 1 tab PO DAILY [facility]; Protocol Enoxaparin Sodium (Lovenox) 30 mg SC DAILY [facility]; Protocol Glucagon (Glucagen Diagnostic Kit) 0 mg IM STAT PRN; Protocol PRN Reason: Hypoglycemia Protocol Levofloxacin/Dextrose (Levaquin 750mg) 750 mg in 150 mls @ 100 mls/hr IVPB Q48H [facility] Lactated Ringer's (Lactated Ringer's) 1,000 mls @ 75 mls/hr IV .[id number] FAY Propofol (Diprivan) 1,000 mg in 100 mls @ 2.21 mls/hr IV .Q24H [facility]; Protocol Stop: 07/13/18 13:19 Last Admin: 07/12/18 13:00 Dose: 5 mcg/kg/min, 2.21 mls/hr Insulin Human Regular (Humulin R) 0 units SC ACHS [facility]; Protocol Last Admin: 07/12/18 12:30 Dose: Not Given Midazolam HCl (Versed Inj) 2 mg IV Q6 PRN PRN Reason: Agitation Last Admin: 07/12/18 11:57 Dose: 2 mg Oseltamivir Phosphate (Tamiflu Cap) 75 mg PO BID [facility]; Protocol Last Admin: 07/12/18 12:00 Dose: 75 mg Pantoprazole Sodium (Protonix Ec Tab) 40 mg PO DAILY [facility]AY Trimethoprim/Sulfamethoxazole (Sulfatrim Pediatric Susp) 20 ml PO Q12 [facility]; Protocol Results - Vital Signs Recent Vital Signs: Last Vital Signs Temp 98.9 F 07/12/18 16:00 Pulse 78 07/12/18 16:00 Resp 16 07/12/18 16:00 BP 152/78 H 07/12/18 16:00 Pulse Ox 97 07/12/18 16:00 - Labs Result Diagrams: 07/15/18 05:30 07/15/18 05:30 Labs: Laboratory Results - last 24 hr 07/11/18 07/11/18 07/11/18 11:56 18:54 18:54 WBC RBC Hgb Hct MCV MCH MCHC RDW Plt Count MPV Neut % (Auto) Lymph % (Auto) [place] % (Auto) Eos % (Auto) Baso % (Auto) Neut # (Auto) Lymph # (Auto) [place] # (Auto) Eos # (Auto) Baso # (Auto) Neutrophils % (Manual) Lymphocytes % (Manual) Monocytes % (Manual) Platelet Estimate Anisocytosis (manual) PT INR APTT pCO2 pO2 HCO3 ABG pH ABG Total CO2 ABG O2 Saturation ABG O2 Content ABG Base Excess ABG Hemoglobin ABG Carboxyhemoglobin POC ABG HHb (Measured) ABG Methemoglobin ABG O2 Capacity Bob Test A-a O2 Difference Hgb O2 Saturation Vent Mode Mechanical Rate FiO2 Tidal Volume PEEP Sodium Potassium Chloride Carbon Dioxide Anion Gap BUN Creatinine Est GFR ( Amer) Est GFR (Non-Af Amer) POC Glucose (mg/dL) 157 H Random Glucose Calcium Total Bilirubin Direct Bilirubin AST ALT Alkaline Phosphatase Ammonia Total Creatine Kinase Troponin I Total Protein Albumin Globulin Albumin/Globulin Ratio Procalcitonin Prolactin Urine Color Dark yellow Urine Clarity Cloudy Urine pH 5.0 Ur Specific [place] 1.017 Urine Protein >=300 Urine Glucose (UA) Neg Urine Ketones Negative Urine Blood Moderate Urine Nitrate Negative Urine Bilirubin Negative Urine Urobilinogen 0.2-1.0 Ur Leukocyte Esterase Trace Urine RBC (Auto) 13 H Urine Microscopic WBC 9 H Ur Squamous Epith Cells 1 Urine Bacteria Occ H Hyaline Casts 0-2 Ur Random Sodium 27 Ur Random Potassium 81.9 Hepatitis A IgM Ab Hep Bs Antigen Hep B Core IgM Ab Hepatitis C Antibody 07/11/18 07/11/18 07/11/18 19:12 19:17 19:28 WBC RBC Hgb Hct MCV MCH MCHC RDW Plt Count MPV Neut % (Auto) Lymph % (Auto) [place] % (Auto) Eos % (Auto) Baso % (Auto) Neut # (Auto) Lymph # (Auto) [place] # (Auto) Eos # (Auto) Baso # (Auto) Neutrophils % (Manual) Lymphocytes % (Manual) Monocytes % (Manual) Platelet Estimate Anisocytosis (manual) PT 11.5 INR 1.0 APTT 28.9 pCO2 pO2 HCO3 ABG pH ABG Total CO2 ABG O2 Saturation ABG O2 Content ABG Base Excess ABG Hemoglobin ABG Carboxyhemoglobin POC ABG HHb (Measured) ABG Methemoglobin ABG O2 Capacity Bob Test A-a O2 Difference Hgb O2 Saturation Vent Mode Mechanical Rate FiO2 Tidal Volume PEEP Sodium Potassium Chloride Carbon Dioxide Anion Gap BUN Creatinine Est GFR ( Amer) Est GFR (Non-Af Amer) POC Glucose (mg/dL) Random Glucose Calcium Total Bilirubin 0.2 Direct Bilirubin 0.2 AST 74 H D ALT 44 Alkaline Phosphatase 58 Ammonia Total Creatine Kinase 1062 H Troponin I 3.1800 H* Total Protein 7.3 Albumin 3.4 L Globulin 3.9 Albumin/Globulin Ratio 0.9 L Procalcitonin Prolactin Urine Color Urine Clarity Urine pH Ur Specific [place] Urine Protein Urine Glucose (UA) Urine Ketones Urine Blood Urine Nitrate Urine Bilirubin Urine Urobilinogen Ur Leukocyte Esterase Urine RBC (Auto) Urine Microscopic WBC Ur Squamous Epith Cells Urine Bacteria Hyaline Casts Ur Random Sodium Ur Random Potassium Hepatitis A IgM Ab Negative Hep Bs Antigen Negative Hep B Core IgM Ab Negative Hepatitis C Antibody Reactive 07/11/18 07/11/18 07/11/18 19:52 20:23 21:23 WBC RBC Hgb Hct MCV MCH MCHC RDW Plt Count MPV Neut % (Auto) Lymph % (Auto) [place] % (Auto) Eos % (Auto) Baso % (Auto) Neut # (Auto) Lymph # (Auto) [place] # (Auto) Eos # (Auto) Baso # (Auto) Neutrophils % (Manual) Lymphocytes % (Manual) Monocytes % (Manual) Platelet Estimate Anisocytosis (manual) PT INR APTT pCO2 pO2 HCO3 ABG pH ABG Total CO2 ABG O2 Saturation ABG O2 Content ABG Base Excess ABG Hemoglobin ABG Carboxyhemoglobin POC ABG HHb (Measured) ABG Methemoglobin ABG O2 Capacity Bob Test A-a O2 Difference Hgb O2 Saturation Vent Mode Mechanical Rate FiO2 Tidal Volume PEEP Sodium Potassium Chloride Carbon Dioxide Anion Gap BUN Creatinine Est GFR ( Amer) Est GFR (Non-Af Amer) POC Glucose (mg/dL) 54 L Random Glucose Calcium Total Bilirubin Direct Bilirubin AST ALT Alkaline Phosphatase Ammonia Total Creatine Kinase Troponin I Total Protein Albumin Globulin Albumin/Globulin Ratio Procalcitonin 0.64 H Prolactin 26.3 H Urine Color Urine Clarity Urine pH Ur Specific [place] Urine Protein Urine Glucose (UA) Urine Ketones Urine Blood Urine Nitrate Urine Bilirubin Urine Urobilinogen Ur Leukocyte Esterase Urine RBC (Auto) Urine Microscopic WBC Ur Squamous Epith Cells Urine Bacteria Hyaline Casts Ur Random Sodium Ur Random Potassium Hepatitis A IgM Ab Hep Bs Antigen Hep B Core IgM Ab Hepatitis C Antibody 07/11/18 07/12/18 07/12/18 21:28 00:17 00:30 WBC RBC Hgb Hct MCV MCH MCHC RDW Plt Count MPV Neut % (Auto) Lymph % (Auto) [place] % (Auto) Eos % (Auto) Baso % (Auto) Neut # (Auto) Lymph # (Auto) [place] # (Auto) Eos # (Auto) Baso # (Auto) Neutrophils % (Manual) Lymphocytes % (Manual) Monocytes % (Manual) Platelet Estimate Anisocytosis (manual) PT INR APTT pCO2 56 H pO2 82 HCO3 19.7 L ABG pH 7.20 L ABG Total CO2 23.6 ABG O2 Saturation 96.0 ABG O2 Content 16.6 ABG Base Excess -6.6 L ABG Hemoglobin 12.5 ABG Carboxyhemoglobin 1.0 POC ABG HHb (Measured) 3.9 ABG Methemoglobin 1.3 ABG O2 Capacity 17.3 Bob Test Yes A-a O2 Difference 561.0 Hgb O2 Saturation 93.8 L Vent Mode Mechanical Rate FiO2 100.0 Tidal Volume PEEP Sodium 139 Potassium 4.1 Chloride 110 H Carbon Dioxide 22 Anion Gap 11 BUN 42 H Creatinine 2.1 H Est GFR ( Amer) 29 Est GFR (Non-Af Amer) 24 POC Glucose (mg/dL) 100 Random Glucose 100 Calcium 7.9 L Total Bilirubin 0.3 Direct Bilirubin AST 93 H D ALT 44 Alkaline Phosphatase 69 Ammonia Total Creatine Kinase 1332 H Troponin I 3.6000 H* Total Protein 7.8 Albumin 3.6 Globulin 4.2 H Albumin/Globulin Ratio 0.9 L Procalcitonin Prolactin Urine Color Urine Clarity Urine pH Ur Specific [place] Urine Protein Urine Glucose (UA) Urine Ketones Urine Blood Urine Nitrate Urine Bilirubin Urine Urobilinogen Ur Leukocyte Esterase Urine RBC (Auto) Urine Microscopic WBC Ur Squamous Epith Cells Urine Bacteria Hyaline Casts Ur Random Sodium Ur Random Potassium Hepatitis A IgM Ab Hep Bs Antigen Hep B Core IgM Ab Hepatitis C Antibody 07/12/18 07/12/18 07/12/18 00:47 04:27 04:27 WBC 5.4 RBC 4.63 Hgb 12.6 Hct 40.2 MCV 86.7 MCH 27.1 MCHC 31.3 L RDW 17.7 H Plt Count 116 L D MPV 9.3 Neut % (Auto) 83.4 H Lymph % (Auto) 8.7 L [place] % (Auto) 7.5 Eos % (Auto) 0.2 Baso % (Auto) 0.2 Neut # (Auto) 4.5 Lymph # (Auto) 0.5 L [place] # (Auto) 0.4 Eos # (Auto) 0.0 Baso # (Auto) 0.0 Neutrophils % (Manual) 80 H Lymphocytes % (Manual) 16 L Monocytes % (Manual) 4 Platelet Estimate Slightly decreased L Anisocytosis (manual) Slight PT INR APTT pCO2 pO2 HCO3 ABG pH ABG Total CO2 ABG O2 Saturation ABG O2 Content ABG Base Excess ABG Hemoglobin ABG Carboxyhemoglobin POC ABG HHb (Measured) ABG Methemoglobin ABG O2 Capacity Bob Test A-a O2 Difference Hgb O2 Saturation Vent Mode Mechanical Rate FiO2 Tidal Volume PEEP Sodium 141 Potassium 4.4 Chloride 110 H Carbon Dioxide 23 Anion Gap 12 BUN 44 H Creatinine 2.1 H Est GFR ( Amer) 29 Est GFR (Non-Af Amer) 24 POC Glucose (mg/dL) 103 Random Glucose 113 H Calcium 7.9 L Total Bilirubin 0.3 Direct Bilirubin AST 98 H ALT 51 Alkaline Phosphatase 64 Ammonia Total Creatine Kinase 1359 H Troponin I Total Protein 7.5 Albumin 3.4 L Globulin 4.1 H Albumin/Globulin Ratio 0.8 L Procalcitonin Prolactin Urine Color Urine Clarity Urine pH Ur Specific [place] Urine Protein Urine Glucose (UA) Urine Ketones Urine Blood Urine Nitrate Urine Bilirubin Urine Urobilinogen Ur Leukocyte Esterase Urine RBC (Auto) Urine Microscopic WBC Ur Squamous Epith Cells Urine Bacteria Hyaline Casts Ur Random Sodium Ur Random Potassium Hepatitis A IgM Ab Hep Bs Antigen Hep B Core IgM Ab Hepatitis C Antibody 07/12/18 07/12/18 07/12/18 04:27 05:37 05:46 WBC RBC Hgb Hct MCV MCH MCHC RDW Plt Count MPV Neut % (Auto) Lymph % (Auto) [place] % (Auto) Eos % (Auto) Baso % (Auto) Neut # (Auto) Lymph # (Auto) [place] # (Auto) Eos # (Auto) Baso # (Auto) Neutrophils % (Manual) Lymphocytes % (Manual) Monocytes % (Manual) Platelet Estimate Anisocytosis (manual) PT INR APTT pCO2 pO2 HCO3 ABG pH ABG Total CO2 ABG O2 Saturation ABG O2 Content ABG Base Excess ABG Hemoglobin ABG Carboxyhemoglobin POC ABG HHb (Measured) ABG Methemoglobin ABG O2 Capacity Bob Test A-a O2 Difference Hgb O2 Saturation Vent Mode Mechanical Rate FiO2 Tidal Volume PEEP Sodium Potassium Chloride Carbon Dioxide Anion Gap BUN Creatinine Est GFR ( Amer) Est GFR (Non-Af Amer) POC Glucose (mg/dL) 122 H Random Glucose Calcium Total Bilirubin Direct Bilirubin AST ALT Alkaline Phosphatase Ammonia 36 D Total Creatine Kinase Troponin I 3.5100 H* Total Protein Albumin Globulin Albumin/Globulin Ratio Procalcitonin Prolactin Urine Color Urine Clarity Urine pH Ur Specific [place] Urine Protein Urine Glucose (UA) Urine Ketones Urine Blood Urine Nitrate Urine Bilirubin Urine Urobilinogen Ur Leukocyte Esterase Urine RBC (Auto) Urine Microscopic WBC Ur Squamous Epith Cells Urine Bacteria Hyaline Casts Ur Random Sodium Ur Random Potassium Hepatitis A IgM Ab Hep Bs Antigen Hep B Core IgM Ab Hepatitis C Antibody 07/12/18 07/12/18 11:15 12:56 WBC RBC Hgb Hct MCV MCH MCHC RDW Plt Count MPV Neut % (Auto) Lymph % (Auto) [place] % (Auto) Eos % (Auto) Baso % (Auto) Neut # (Auto) Lymph # (Auto) [place] # (Auto) Eos # (Auto) Baso # (Auto) Neutrophils % (Manual) Lymphocytes % (Manual) Monocytes % (Manual) Platelet Estimate Anisocytosis (manual) PT INR APTT pCO2 46 H pO2 81 HCO3 25.0 ABG pH 7.36 ABG Total CO2 27.4 ABG O2 Saturation 96.9 ABG O2 Content 15.9 ABG Base Excess 0.2 ABG Hemoglobin 11.8 ABG Carboxyhemoglobin 0.9 POC ABG HHb (Measured) 3.0 ABG Methemoglobin 1.0 ABG O2 Capacity 16.4 Bob Test Yes A-a O2 Difference 289.0 Hgb O2 Saturation 95.1 Vent Mode A/c Mechanical Rate 16 FiO2 60.0 Tidal Volume 450 PEEP 5 Sodium Potassium Chloride Carbon Dioxide Anion Gap BUN Creatinine Est GFR ( Amer) Est GFR (Non-Af Amer) POC Glucose (mg/dL) 118 H Random Glucose Calcium Total Bilirubin Direct Bilirubin AST ALT Alkaline Phosphatase Ammonia Total Creatine Kinase Troponin I Total Protein Albumin Globulin Albumin/Globulin Ratio Procalcitonin Prolactin Urine Color Urine Clarity Urine pH Ur Specific [place] Urine Protein Urine Glucose (UA) Urine Ketones Urine Blood Urine Nitrate Urine Bilirubin Urine Urobilinogen Ur Leukocyte Esterase Urine RBC (Auto) Urine Microscopic WBC Ur Squamous Epith Cells Urine Bacteria Hyaline Casts Ur Random Sodium Ur Random Potassium Hepatitis A IgM Ab Hep Bs Antigen Hep B Core IgM Ab Hepatitis C Antibody Assessment & Plan - Assessment and Plan (Free Text) Assessment: A/p: 58 yr old woman with new stroke, who presentd with obtundation, and is now minimally responsive. Plan: 1. CTA head and neck ,followed by 2. VEEG 3. aspirin 325 mg po daily 4. PT ST OT 5. Dysphagia evaluation. 6. ECHO completed. Thank you Dr. perry
[2018-07-12] MEDS: Lactated Ringer's 1,000 ML IV SCH (18:00)
[2018-07-12] MEDS: Albuterol-Ipratrop 3 mg / 0.5 (3 ml) UD INH SCH (19:09)
--- NOTE | 2018-07-12 19:28 | CARD ---
APPROVED REPORT Date of service: 07/12/2018 EXAM: Two-dimensional and M-mode echocardiogram with Doppler and color Doppler. Other Information Quality : GoodRhythm : NSR Technically limited study due to Pt Is Vented INDICATION Elevated Troponins 2D DIMENSIONS IVSd0.96 (0.7-1.1cm)LVDd2.80 (3.9-5.9cm) LVOT Diameter1.91 (1.8-2.4cm)PWd0.79 (0.7-1.1cm) IVSs1.08 (0.8-1.2cm)LVDs2.21 (2.5-4.0cm) FS (%) 20.9 %PWs0.83 (0.8-1.2cm) M-Mode DIMENSIONS Left Atrium (MM)1.78 (2.5-4.0cm)Aortic Root2.96 (2.2-3.7cm) Aortic Cusp Exc.1.57 (1.5-2.0cm) Aortic Valve AoV Peak Tevifytb714.7cm/sAoV VTI17.9cmAO Peak GR.6mmHg LVOT Peak Afkfwqoj129.3cm/sLVOT VTI14.31cmAO Mean GR.4mmHg STAR (VMAX)1.00xo8VZX (VTI)1.30cm2 Mitral Valve MV E Owbxouoc94.2cm/sMV DECEL [id number] A Dmulawsy50.5cm/s MV LIQ95dvC/A ratio0.8MVA (PHT)3.70cm2 TDI Lateral E' Peak V10.35cm/sMedial E' Peak V6.27cm/sE/Lateral E'4.4 E/Medial E'7.2 Tricuspid Valve TR Peak Qdqiatqa114bs/sRAP VTQEBHRL83tkTfNA Peak Gr.21mmHg [id number] LEFT VENTRICLE The left ventricle is normal size. There is normal left ventricular wall thickness. The left ventricular systolic function is normal. The estimated ejection fraction is 55-60% No regional wall motion abnormalities noted.. Transmitral Doppler flow pattern is Grade I-abnormal relaxation pattern. No left ventricle thrombus noted on this study. There is no ventricular septal defect visualized. There is no left ventricular aneurysm. There is no mass noted in the left ventricle. RIGHT VENTRICLE The right ventricle is mildly dilated. There is normal right ventricular wall thickness. The right ventricular systolic function is normal. ATRIA The left atrium size is normal. The right atrium size is normal. The interatrial septum is intact with no evidence for an atrial septal defect. AORTIC VALVE The aortic valve is normal in structure. Mild aortic regurgitation is present. There is no aortic valvular stenosis. There is no aortic valvular vegetation. MITRAL VALVE The mitral valve is normal in structure. There is no evidence of mitral valve prolapse. There is no mitral valve stenosis. There is no mitral valve regurgitation noted. TRICUSPID VALVE The tricuspid valve is normal in structure. There is mild tricuspid valve regurgitation noted. RVSP is calculated at 35 mm Hg. There is no tricuspid valve prolapse or vegetation. There is no tricuspid valve stenosis. PULMONIC VALVE The pulmonary valve is normal in structure. There is no pulmonic valvular regurgitation. There is no pulmonic valvular stenosis. GREAT VESSELS The aortic root is normal in size. The ascending aorta is normal in size. The pulmonary artery is normal. The IVC is dilated in size and collapses <50% with inspiration. PERICARDIAL EFFUSION There is no pericardial effusion. There is no pleural effusion. <Conclusion> The estimated ejection fraction is 55-60% Transmitral Doppler flow pattern is Grade I-abnormal relaxation pattern. The right ventricle is mildly dilated. There is mild tricuspid valve regurgitation noted. RVSP is calculated at 35 mm Hg. The IVC is dilated in size and collapses <50% with inspiration.
[2018-07-12] MEDS: Tmp-Smz 200-40mg/5 ml Oral Sus(120 ml) PO SCH (22:10)
[2018-07-12] MEDS ORDERED: Acetaminophen 650mg/20.3ml solution UD PO PRN (23:03)
--- NOTE | 2018-07-12 23:42 | CARD ---
APPROVED REPORT Date of service: 07/12/2018 EKG Measurement Heart [id number] ME [id number] PRc187 <Conclusion> Normal sinus rhythm Normal ECG
--- NOTE | 2018-07-12 23:47 | CARD ---
APPROVED REPORT Date of service: 07/11/2018 EKG Measurement Heart [id number] LA [id number] VTi976 <Conclusion> Sinus tachycardia Nonspecific ST abnormality Abnormal ECG
[2018-07-13] MEDS: Albuterol-Ipratrop 3 mg / 0.5 (3 ml) UD INH SCH ×7 (00:45→23:20)
[2018-07-13] MEDS: Midazolam 2 MG/2 ML VIAL IV PRN ×2 (02:42→20:15)
[2018-07-13] MEDS: Acetaminophen 650mg/20.3ml solution UD PO PRN ×2 (04:34→23:42)
[2018-07-13 05:12] LABS: BASO % 0.2 % (0.0-2.0); EOS # 0.1 K/uL (0.0-0.7); EOS % 0.9 % (0.0-4.0); HEMOGLOBIN 11.4 g/dL (12.0-16.0); LYMPH # 0.8 K/uL (1.0-4.3); LYMPH % 13.7 % (20.0-40.0); MEAN CELL VOLUME 83.7 fl (81.0-99.0); MEAN CORPUSCULAR HEMOGLOBIN 27.3 pg (27.0-31.0); MEAN CORPUSCULAR HGB CONC 32.6 g/dL (33.0-37.0); MEAN PLATELET VOLUME 9.6 fl (7.2-11.7); MONO # 0.5 K/uL (0.0-0.8); MONO % 8.3 % (0.0-10.0); NEUT # 4.4 K/uL (1.8-7.0); NEUT % 76.9 % (50.0-75.0); NRBC % 0.1 % (0.0-0.0); RBC 4.16 Mil/uL (3.80-5.20); RED CELL DISTRIBUTION WIDTH 17.4 % (11.5-14.5); WHITE BLOOD COUNT 5.8 K/uL (4.8-10.8)
[2018-07-13 05:33] LABS: ALB/GLOB RATIO 0.8 (1.0-2.1)
[2018-07-13 05:34] LABS: ABG ALLEN TEST YES; ARTERIAL BLOOD GAS HCO3 26.9 mmol/L (21-28); ARTERIAL BLOOD GAS HEMOGLOBIN 11.4 g/dL (11.7-17.4); ARTERIAL BLOOD GAS O2 CAPACITY 15.8 mL/dL (16-24); ARTERIAL BLOOD GAS O2 CONTENT 14.9 ML/dL (15-23); ARTERIAL BLOOD GAS O2 SAT 94.5 % (95-98); ARTERIAL BLOOD GAS PCO2 41 mm/Hg (35-45); ARTERIAL BLOOD GAS PH 7.43 (7.35-7.45); ARTERIAL BLOOD GAS PO2 69 mm/Hg (80-100); ARTERIAL BLOOD GAS TCO2 28.5 mmol/L (22-28)
[2018-07-13] MEDS ORDERED: Influenza Vaccine 60 MCG/0.5 ML SYR (3 yr & up) IM ONE (07:33)
--- NOTE | 2018-07-13 07:35 | CP.CCUPN ---
<Elli Araya - Last Filed: 07/13/18 10:36> CCU Subjective - Physician Review Events Since Last Encounter (Free Text): 58 YO Female with multiple comorbidities including substance abuse and HIV was admitted for AMS, susbpected drug overdose. 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 Pt was intubated yesterday due to respiratory failure, and started on propofol for sedation due to increase agitation. Overnight pt was agitated, propofol was increased and was given an additional dose of versed. Pt seen and examined by bedside this AM. Pt is intubated and sedated. Continues to have agotated at times. Does not respond to voice but responds with physical stimuli. Noted moving LUE and LLE CCU Objective - Vital Signs / Intake & Output Vital Signs (Last 4 hours): Vital Signs Temp Pulse Resp BP Pulse Ox 07/13/18 07:00 88 16 99/53 L 97 07/13/18 06:00 88 16 125/80 96 07/13/18 05:34 99.9 F H 07/13/18 05:00 97 H 16 105/81 98 07/13/18 04:34 100.6 F H 07/13/18 04:00 100.6 F H 91 H 16 99/59 L 95 Intake and Output (Last 8hrs): Intake & Output 07/12/18 07/13/18 07/13/18 22:59 06:59 14:59 Intake Total 1659 1075 25 Output Total 1000 580 Balance 659 495 25 Intake: IV 1219 775 25 Intake, Piggyback 250 Tube Feeding 40 170 Free Water Flush 150 130 Output: Urine 1000 580 Urethral (Jimenez) 1000 580 Other: # Bowel Movements 0 - Physical Exam Head: Positive for: Atraumatic, Normocephalic Pupils: Positive for: PERRL Conjunctiva: Positive for: Normal Mouth: Positive for: Moist Mucous Membranes Respiratory/Chest: Positive for: Decreased Breath Sounds (at RLL), Other (course breath sounds b/l ) Cardiovascular: Positive for: Normal S1, S2 Abdomen: Positive for: Normal Bowel Sounds. Negative for: Tenderness, Distention Upper Extremity: Positive for: Normal Inspection, Other (edema noted of the R hand >L hand ) Lower Extremity: Positive for: Normal Inspection, Other (scds on, no edema noted, moving LLE not seen moving RLE ) Neurological: Positive for: Other (right hemiparesis, sedated ). Negative for: GCS=15 - Medications Active Medications: Active Medications Generic Name Dose Route Start Last Admin Trade Name Freq PRN Reason Stop Dose Admin Acetaminophen 650 mg 07/13/18 04:23 07/13/18 04:34 Tylenol 650mg/20.3ml Solution Ud PO 650 mg Q4H PRN Administration Temperature Albuterol/Ipratropium 3 ml 07/12/18 20:00 07/13/18 07:08 Duoneb 3 Mg/0.5 Mg (3 Ml) Ud INH 3 ml RQ4 FAY Administration Aspirin 325 mg 07/13/18 09:00 Ecotrin PO DAILY FAY Dextrose 0 ml 07/11/18 18:48 Dextrose 50% Inj IV STAT PRN Hypoglycemia Protocol Protocol Dextrose 0 gm 07/11/18 18:48 Glutose 15 PO ONCE PRN Hypoglycemia Protocol Protocol Dolutegravir Sodium 50 mg 07/13/18 09:00 Tivicay PO DAILY FYA Protocol Emtricitabine/Tenofovir 1 tab 07/13/18 09:00 Truvada 200 Mg-300 Mg PO DAILY FAY Protocol Enoxaparin Sodium 30 mg 07/13/18 09:00 Lovenox SC DAILY FAY Protocol Glucagon 0 mg 07/11/18 18:48 Glucagen Diagnostic Kit IM STAT PRN Hypoglycemia Protocol Protocol Levofloxacin/Dextrose 750 mg in 150 mls @ 100 mls/hr 07/13/18 09:00 Levaquin 750mg IVPB Q48H FAY Lactated Ringer's 1,000 mls @ 75 mls/hr 07/12/18 11:00 07/12/18 18:00 Lactated Ringer's IV 75 mls/hr .[id number] FAY Administration Propofol 1,000 mg in 100 mls @ 15.469 mls/hr 07/12/18 23:15 07/13/18 07:10 Diprivan IV 07/13/18 23:02 40 mcg/kg/min .[id number] FAY 17.679 mls/hr Titration Protocol 35 MCG/KG/MIN Influenza Virus Vaccine 60 mcg 07/13/18 07:33 Fluzone Quad [id number] IM 07/13/18 07:34 .ONCE ONE Insulin Human Regular 0 units 07/11/18 22:00 07/12/18 22:57 Humulin R SC Not Given ACHS [facility] Protocol Midazolam HCl 2 mg 07/12/18 11:03 07/13/18 02:42 Versed Inj IV 2 mg Q6 PRN Administration Agitation Oseltamivir Phosphate 75 mg 07/12/18 17:00 07/12/18 18:00 Tamiflu Cap PO 75 mg BID FAY Administration Protocol Pantoprazole Sodium 40 mg 07/13/18 09:00 Protonix Ec Tab PO DAILY FAY Trimethoprim/Sulfamethoxazole 20 ml 07/12/18 21:00 07/12/18 22:10 Sulfatrim Pediatric Susp PO 20 ml Q12 FAY Administration Protocol - Patient Studies Lab Studies: Microbiology Studies 07/11/18 16:50 Blood Culture - Preliminary Blood-Venous NO GROWTH AFTER 24 HOURS Lab Studies 07/13/18 07/13/18 07/13/18 Range/Units 05:26 04:29 04:29 WBC 5.8 (4.8-10.8) K/uL RBC 4.16 (3.80-5.20) Mil/uL Hgb 11.4 L (12.0-16.0) g/dL Hct 34.9 (34.0-47.0) % MCV 83.7 D (81.0-99.0) fl MCH 27.3 (27.0-31.0) pg MCHC 32.6 L (33.0-37.0) g/dL RDW 17.4 H (11.5-14.5) % Plt Count 125 L (130-400) K/uL MPV 9.6 (7.2-11.7) fl Neut % (Auto) 76.9 H (50.0-75.0) % Lymph % (Auto) 13.7 L (20.0-40.0) % [place] % (Auto) 8.3 (0.0-10.0) % Eos % (Auto) 0.9 (0.0-4.0) % Baso % (Auto) 0.2 (0.0-2.0) % Neut # (Auto) 4.4 (1.8-7.0) K/uL Lymph # (Auto) 0.8 L (1.0-4.3) K/uL [place] # (Auto) 0.5 (0.0-0.8) K/uL Eos # (Auto) 0.1 (0.0-0.7) K/uL Baso # (Auto) 0.0 (0.0-0.2) K/uL Neutrophils % (Manual) (42-75) % Lymphocytes % (Manual) (20-50) % Monocytes % (Manual) (0-10) % Platelet Estimate (NORMAL) Anisocytosis (manual) pCO2 41 (35-45) mm/Hg pO2 69 L (80-100) mm/Hg HCO3 26.9 (21-28) mmol/L ABG pH 7.43 (7.35-7.45) ABG Total CO2 28.5 H (22-28) mmol/L ABG O2 Saturation 94.5 L (95-98) % ABG O2 Content 14.9 L (15-23) ML/dL ABG Base Excess 2.6 (-2.0-3.0) mmol/L ABG Hemoglobin 11.4 L (11.7-17.4) g/dL ABG Carboxyhemoglobin 0.5 (0.5-1.5) % POC ABG HHb (Measured) 5.4 H (0.0-5.0) % ABG Methemoglobin 1.1 (0.0-3.0) % ABG O2 Capacity 15.8 L (16-24) mL/dL Bob Test Yes A-a O2 Difference 308.0 mm/Hg Hgb O2 Saturation 92.9 L (95.0-98.0) % Vent Mode Prvc/ac Mechanical Rate 16 FiO2 60.0 % Tidal Volume 450 PEEP 5 Sodium 146 (132-148) mmol/l Potassium 3.6 (3.6-5.0) MMOL/L Chloride 110 H (98-107) mmol/L Carbon Dioxide 28 (22-30) mmol/L Anion Gap 12 (10-20) BUN 35 H (7-17) mg/dl Creatinine 1.5 H (0.7-1.2) mg/dl Est GFR ( Amer) 43 Est GFR (Non-Af Amer) 36 POC Glucose (mg/dL) (65-110) mg/dL Random Glucose 137 H (65-105) mg/dL Calcium 8.0 L (8.4-10.2) mg/dL Total Bilirubin 0.6 (0.2-1.3) mg/dl AST 75 H D (14-36) U/L ALT 41 (9-52) U/L Alkaline Phosphatase 84 (38-126) U/L Total Creatine Kinase 838 H (30-135) U/L Troponin I (0.00-0.120) ng/mL Total Protein 6.7 (6.3-8.2) G/DL Albumin 3.0 L (3.5-5.0) g/dL Globulin 3.8 (2.2-3.9) gm/dL Albumin/Globulin Ratio 0.8 L (1.0-2.1) Procalcitonin (0.19-0.49) NG/ML Prolactin (3.0-18.9) ng/mL Hepatitis A IgM Ab (NEGATIVE) Hep Bs Antigen (NEGATIVE) Hep B Core IgM Ab (NEGATIVE) Hepatitis C Antibody (NEGATIVE) 07/13/18 07/12/18 07/12/18 Range/Units 04:17 20:41 16:29 WBC (4.8-10.8) K/uL RBC (3.80-5.20) Mil/uL Hgb (12.0-16.0) g/dL Hct (34.0-47.0) % MCV (81.0-99.0) fl MCH (27.0-31.0) pg MCHC (33.0-37.0) g/dL RDW (11.5-14.5) % Plt Count (130-400) K/uL MPV (7.2-11.7) fl Neut % (Auto) (50.0-75.0) % Lymph % (Auto) (20.0-40.0) % [place] % (Auto) (0.0-10.0) % Eos % (Auto) (0.0-4.0) % Baso % (Auto) (0.0-2.0) % Neut # (Auto) (1.8-7.0) K/uL Lymph # (Auto) (1.0-4.3) K/uL [place] # (Auto) (0.0-0.8) K/uL Eos # (Auto) (0.0-0.7) K/uL Baso # (Auto) (0.0-0.2) K/uL Neutrophils % (Manual) (42-75) % Lymphocytes % (Manual) (20-50) % Monocytes % (Manual) (0-10) % Platelet Estimate (NORMAL) Anisocytosis (manual) pCO2 (35-45) mm/Hg pO2 (80-100) mm/Hg HCO3 (21-28) mmol/L ABG pH (7.35-7.45) ABG Total CO2 (22-28) mmol/L ABG O2 Saturation (95-98) % ABG O2 Content (15-23) ML/dL ABG Base Excess (-2.0-3.0) mmol/L ABG Hemoglobin (11.7-17.4) g/dL ABG Carboxyhemoglobin (0.5-1.5) % POC ABG HHb (Measured) (0.0-5.0) % ABG Methemoglobin (0.0-3.0) % ABG O2 Capacity (16-24) mL/dL Bob Test A-a O2 Difference mm/Hg Hgb O2 Saturation (95.0-98.0) % Vent Mode Mechanical Rate FiO2 % Tidal Volume PEEP Sodium (132-148) mmol/l Potassium (3.6-5.0) MMOL/L Chloride (98-107) mmol/L Carbon Dioxide (22-30) mmol/L Anion Gap (10-20) BUN (7-17) mg/dl Creatinine (0.7-1.2) mg/dl Est GFR ( Amer) Est GFR (Non-Af Amer) POC Glucose (mg/dL) 125 H 105 89 (65-110) mg/dL Random Glucose (65-105) mg/dL Calcium (8.4-10.2) mg/dL Total Bilirubin (0.2-1.3) mg/dl AST (14-36) U/L ALT (9-52) U/L Alkaline Phosphatase (38-126) U/L Total Creatine Kinase (30-135) U/L Troponin I (0.00-0.120) ng/mL Total Protein (6.3-8.2) G/DL Albumin (3.5-5.0) g/dL Globulin (2.2-3.9) gm/dL Albumin/Globulin Ratio (1.0-2.1) Procalcitonin (0.19-0.49) NG/ML Prolactin (3.0-18.9) ng/mL Hepatitis A IgM Ab (NEGATIVE) Hep Bs Antigen (NEGATIVE) Hep B Core IgM Ab (NEGATIVE) Hepatitis C Antibody (NEGATIVE) 07/12/18 07/12/18 07/12/18 Range/Units 12:56 11:15 04:27 WBC (4.8-10.8) K/uL RBC (3.80-5.20) Mil/uL Hgb (12.0-16.0) g/dL Hct (34.0-47.0) % MCV (81.0-99.0) fl MCH (27.0-31.0) pg MCHC (33.0-37.0) g/dL RDW (11.5-14.5) % Plt Count (130-400) K/uL MPV (7.2-11.7) fl Neut % (Auto) (50.0-75.0) % Lymph % (Auto) (20.0-40.0) % [place] % (Auto) (0.0-10.0) % Eos % (Auto) (0.0-4.0) % Baso % (Auto) (0.0-2.0) % Neut # (Auto) (1.8-7.0) K/uL Lymph # (Auto) (1.0-4.3) K/uL [place] # (Auto) (0.0-0.8) K/uL Eos # (Auto) (0.0-0.7) K/uL Baso # (Auto) (0.0-0.2) K/uL Neutrophils % (Manual) 80 H (42-75) % Lymphocytes % (Manual) 16 L (20-50) % Monocytes % (Manual) 4 (0-10) % Platelet Estimate Slightly decreased L (NORMAL) Anisocytosis (manual) Slight pCO2 46 H (35-45) mm/Hg pO2 81 (80-100) mm/Hg HCO3 25.0 (21-28) mmol/L ABG pH 7.36 (7.35-7.45) ABG Total CO2 27.4 (22-28) mmol/L ABG O2 Saturation 96.9 (95-98) % ABG O2 Content 15.9 (15-23) ML/dL ABG Base Excess 0.2 (-2.0-3.0) mmol/L ABG Hemoglobin 11.8 (11.7-17.4) g/dL ABG Carboxyhemoglobin 0.9 (0.5-1.5) % POC ABG HHb (Measured) 3.0 (0.0-5.0) % ABG Methemoglobin 1.0 (0.0-3.0) % ABG O2 Capacity 16.4 (16-24) mL/dL Bob Test Yes A-a O2 Difference 289.0 mm/Hg Hgb O2 Saturation 95.1 (95.0-98.0) % Vent Mode A/c Mechanical Rate 16 FiO2 60.0 % Tidal Volume 450 PEEP 5 Sodium (132-148) mmol/l Potassium (3.6-5.0) MMOL/L Chloride (98-107) mmol/L Carbon Dioxide (22-30) mmol/L Anion Gap (10-20) BUN (7-17) mg/dl Creatinine (0.7-1.2) mg/dl Est GFR ( Amer) Est GFR (Non-Af Amer) POC Glucose (mg/dL) 118 H (65-110) mg/dL Random Glucose (65-105) mg/dL Calcium (8.4-10.2) mg/dL Total Bilirubin (0.2-1.3) mg/dl AST (14-36) U/L ALT (9-52) U/L Alkaline Phosphatase (38-126) U/L Total Creatine Kinase (30-135) U/L Troponin I (0.00-0.120) ng/mL Total Protein (6.3-8.2) G/DL Albumin (3.5-5.0) g/dL Globulin (2.2-3.9) gm/dL Albumin/Globulin Ratio (1.0-2.1) Procalcitonin (0.19-0.49) NG/ML Prolactin (3.0-18.9) ng/mL Hepatitis A IgM Ab (NEGATIVE) Hep Bs Antigen (NEGATIVE) Hep B Core IgM Ab (NEGATIVE) Hepatitis C Antibody (NEGATIVE) 07/12/18 07/11/18 07/11/18 Range/Units 00:30 21:23 20:23 WBC (4.8-10.8) K/uL RBC (3.80-5.20) Mil/uL Hgb (12.0-16.0) g/dL Hct (34.0-47.0) % MCV (81.0-99.0) fl MCH (27.0-31.0) pg MCHC (33.0-37.0) g/dL RDW (11.5-14.5) % Plt Count (130-400) K/uL MPV (7.2-11.7) fl Neut % (Auto) (50.0-75.0) % Lymph % (Auto) (20.0-40.0) % [place] % (Auto) (0.0-10.0) % Eos % (Auto) (0.0-4.0) % Baso % (Auto) (0.0-2.0) % Neut # (Auto) (1.8-7.0) K/uL Lymph # (Auto) (1.0-4.3) K/uL [place] # (Auto) (0.0-0.8) K/uL Eos # (Auto) (0.0-0.7) K/uL Baso # (Auto) (0.0-0.2) K/uL Neutrophils % (Manual) (42-75) % Lymphocytes % (Manual) (20-50) % Monocytes % (Manual) (0-10) % Platelet Estimate (NORMAL) Anisocytosis (manual) pCO2 (35-45) mm/Hg pO2 (80-100) mm/Hg HCO3 (21-28) mmol/L ABG pH (7.35-7.45) ABG Total CO2 (22-28) mmol/L ABG O2 Saturation (95-98) % ABG O2 Content (15-23) ML/dL ABG Base Excess (-2.0-3.0) mmol/L ABG Hemoglobin (11.7-17.4) g/dL ABG Carboxyhemoglobin (0.5-1.5) % POC ABG HHb (Measured) (0.0-5.0) % ABG Methemoglobin (0.0-3.0) % ABG O2 Capacity (16-24) mL/dL Bob Test A-a O2 Difference mm/Hg Hgb O2 Saturation (95.0-98.0) % Vent Mode Mechanical Rate FiO2 % Tidal Volume PEEP Sodium 139 (132-148) mmol/l Potassium 4.1 (3.6-5.0) MMOL/L Chloride 110 H (98-107) mmol/L Carbon Dioxide 22 (22-30) mmol/L Anion Gap 11 (10-20) BUN 42 H (7-17) mg/dl Creatinine 2.1 H (0.7-1.2) mg/dl Est GFR ( Amer) 29 Est GFR (Non-Af Amer) 24 POC Glucose (mg/dL) (65-110) mg/dL Random Glucose 100 (65-105) mg/dL Calcium 7.9 L (8.4-10.2) mg/dL Total Bilirubin 0.3 (0.2-1.3) mg/dl AST 93 H D (14-36) U/L ALT 44 (9-52) U/L Alkaline Phosphatase 69 (38-126) U/L Total Creatine Kinase 1332 H (30-135) U/L Troponin I 3.6000 H* (0.00-0.120) ng/mL Total Protein 7.8 (6.3-8.2) G/DL Albumin 3.6 (3.5-5.0) g/dL Globulin 4.2 H (2.2-3.9) gm/dL Albumin/Globulin Ratio 0.9 L (1.0-2.1) Procalcitonin 0.64 H (0.19-0.49) NG/ML Prolactin 26.3 H (3.0-18.9) ng/mL Hepatitis A IgM Ab (NEGATIVE) Hep Bs Antigen (NEGATIVE) Hep B Core IgM Ab (NEGATIVE) Hepatitis C Antibody (NEGATIVE) 07/11/18 Range/Units 19:17 WBC (4.8-10.8) K/uL RBC (3.80-5.20) Mil/uL Hgb (12.0-16.0) g/dL Hct (34.0-47.0) % MCV (81.0-99.0) fl MCH (27.0-31.0) pg MCHC (33.0-37.0) g/dL RDW (11.5-14.5) % Plt Count (130-400) K/uL MPV (7.2-11.7) fl Neut % (Auto) (50.0-75.0) % Lymph % (Auto) (20.0-40.0) % [place] % (Auto) (0.0-10.0) % Eos % (Auto) (0.0-4.0) % Baso % (Auto) (0.0-2.0) % Neut # (Auto) (1.8-7.0) K/uL Lymph # (Auto) (1.0-4.3) K/uL [place] # (Auto) (0.0-0.8) K/uL Eos # (Auto) (0.0-0.7) K/uL Baso # (Auto) (0.0-0.2) K/uL Neutrophils % (Manual) (42-75) % Lymphocytes % (Manual) (20-50) % Monocytes % (Manual) (0-10) % Platelet Estimate (NORMAL) Anisocytosis (manual) pCO2 (35-45) mm/Hg pO2 (80-100) mm/Hg HCO3 (21-28) mmol/L ABG pH (7.35-7.45) ABG Total CO2 (22-28) mmol/L ABG O2 Saturation (95-98) % ABG O2 Content (15-23) ML/dL ABG Base Excess (-2.0-3.0) mmol/L ABG Hemoglobin (11.7-17.4) g/dL ABG Carboxyhemoglobin (0.5-1.5) % POC ABG HHb (Measured) (0.0-5.0) % ABG Methemoglobin (0.0-3.0) % ABG O2 Capacity (16-24) mL/dL Bob Test A-a O2 Difference mm/Hg Hgb O2 Saturation (95.0-98.0) % Vent Mode Mechanical Rate FiO2 % Tidal Volume PEEP Sodium (132-148) mmol/l Potassium (3.6-5.0) MMOL/L Chloride (98-107) mmol/L Carbon Dioxide (22-30) mmol/L Anion Gap (10-20) BUN (7-17) mg/dl Creatinine (0.7-1.2) mg/dl Est GFR ( Amer) Est GFR (Non-Af Amer) POC Glucose (mg/dL) (65-110) mg/dL Random Glucose (65-105) mg/dL Calcium (8.4-10.2) mg/dL Total Bilirubin (0.2-1.3) mg/dl AST (14-36) U/L ALT (9-52) U/L Alkaline Phosphatase (38-126) U/L Total Creatine Kinase (30-135) U/L Troponin I (0.00-0.120) ng/mL Total Protein (6.3-8.2) G/DL Albumin (3.5-5.0) g/dL Globulin (2.2-3.9) gm/dL Albumin/Globulin Ratio (1.0-2.1) Procalcitonin (0.19-0.49) NG/ML Prolactin (3.0-18.9) ng/mL Hepatitis A IgM Ab Negative (NEGATIVE) Hep Bs Antigen Negative (NEGATIVE) Hep B Core IgM Ab Negative (NEGATIVE) Hepatitis C Antibody Reactive (NEGATIVE) Laboratory Results - last 24 hr 07/11/18 07/11/18 07/11/18 19:17 20:23 21:23 WBC RBC Hgb Hct MCV MCH MCHC RDW Plt Count MPV Neut % (Auto) Lymph % (Auto) [place] % (Auto) Eos % (Auto) Baso % (Auto) Neut # (Auto) Lymph # (Auto) [place] # (Auto) Eos # (Auto) Baso # (Auto) Neutrophils % (Manual) Lymphocytes % (Manual) Monocytes % (Manual) Platelet Estimate Anisocytosis (manual) pCO2 pO2 HCO3 ABG pH ABG Total CO2 ABG O2 Saturation ABG O2 Content ABG Base Excess ABG Hemoglobin ABG Carboxyhemoglobin POC ABG HHb (Measured) ABG Methemoglobin ABG O2 Capacity Bob Test A-a O2 Difference Hgb O2 Saturation Vent Mode Mechanical Rate FiO2 Tidal Volume PEEP Sodium Potassium Chloride Carbon Dioxide Anion Gap BUN Creatinine Est GFR ( Amer) Est GFR (Non-Af Amer) POC Glucose (mg/dL) Random Glucose Calcium Total Bilirubin AST ALT Alkaline Phosphatase Total Creatine Kinase Troponin I Total Protein Albumin Globulin Albumin/Globulin Ratio Procalcitonin 0.64 H Prolactin 26.3 H Hepatitis A IgM Ab Negative Hep Bs Antigen Negative Hep B Core IgM Ab Negative Hepatitis C Antibody Reactive 07/12/18 07/12/18 07/12/18 00:30 04:27 11:15 WBC RBC Hgb Hct MCV MCH MCHC RDW Plt Count MPV Neut % (Auto) Lymph % (Auto) [place] % (Auto) Eos % (Auto) Baso % (Auto) Neut # (Auto) Lymph # (Auto) [place] # (Auto) Eos # (Auto) Baso # (Auto) Neutrophils % (Manual) 80 H Lymphocytes % (Manual) 16 L Monocytes % (Manual) 4 Platelet Estimate Slightly decreased L Anisocytosis (manual) Slight pCO2 46 H pO2 81 HCO3 25.0 ABG pH 7.36 ABG Total CO2 27.4 ABG O2 Saturation 96.9 ABG O2 Content 15.9 ABG Base Excess 0.2 ABG Hemoglobin 11.8 ABG Carboxyhemoglobin 0.9 POC ABG HHb (Measured) 3.0 ABG Methemoglobin 1.0 ABG O2 Capacity 16.4 Bob Test Yes A-a O2 Difference 289.0 Hgb O2 Saturation 95.1 Vent Mode A/c Mechanical Rate 16 FiO2 60.0 Tidal Volume 450 PEEP 5 Sodium 139 Potassium 4.1 Chloride 110 H Carbon Dioxide 22 Anion Gap 11 BUN 42 H Creatinine 2.1 H Est GFR ( Amer) 29 Est GFR (Non-Af Amer) 24 POC Glucose (mg/dL) Random Glucose 100 Calcium 7.9 L Total Bilirubin 0.3 AST 93 H D ALT 44 Alkaline Phosphatase 69 Total Creatine Kinase 1332 H Troponin I 3.6000 H* Total Protein 7.8 Albumin 3.6 Globulin 4.2 H Albumin/Globulin Ratio 0.9 L Procalcitonin Prolactin Hepatitis A IgM Ab Hep Bs Antigen Hep B Core IgM Ab Hepatitis C Antibody 07/12/18 07/12/18 07/12/18 12:56 16:29 20:41 WBC RBC Hgb Hct MCV MCH MCHC RDW Plt Count MPV Neut % (Auto) Lymph % (Auto) [place] % (Auto) Eos % (Auto) Baso % (Auto) Neut # (Auto) Lymph # (Auto) [place] # (Auto) Eos # (Auto) Baso # (Auto) Neutrophils % (Manual) Lymphocytes % (Manual) Monocytes % (Manual) Platelet Estimate Anisocytosis (manual) pCO2 pO2 HCO3 ABG pH ABG Total CO2 ABG O2 Saturation ABG O2 Content ABG Base Excess ABG Hemoglobin ABG Carboxyhemoglobin POC ABG HHb (Measured) ABG Methemoglobin ABG O2 Capacity Bob Test A-a O2 Difference Hgb O2 Saturation Vent Mode Mechanical Rate FiO2 Tidal Volume PEEP Sodium Potassium Chloride Carbon Dioxide Anion Gap BUN Creatinine Est GFR ( Amer) Est GFR (Non-Af Amer) POC Glucose (mg/dL) 118 H 89 105 Random Glucose Calcium Total Bilirubin AST ALT Alkaline Phosphatase Total Creatine Kinase Troponin I Total Protein Albumin Globulin Albumin/Globulin Ratio Procalcitonin Prolactin Hepatitis A IgM Ab Hep Bs Antigen Hep B Core IgM Ab Hepatitis C Antibody 07/13/18 07/13/18 07/13/18 04:17 04:29 04:29 WBC 5.8 RBC 4.16 Hgb 11.4 L Hct 34.9 MCV 83.7 D MCH 27.3 MCHC 32.6 L RDW 17.4 H Plt Count 125 L MPV 9.6 Neut % (Auto) 76.9 H Lymph % (Auto) 13.7 L [place] % (Auto) 8.3 Eos % (Auto) 0.9 Baso % (Auto) 0.2 Neut # (Auto) 4.4 Lymph # (Auto) 0.8 L [place] # (Auto) 0.5 Eos # (Auto) 0.1 Baso # (Auto) 0.0 Neutrophils % (Manual) Lymphocytes % (Manual) Monocytes % (Manual) Platelet Estimate Anisocytosis (manual) pCO2 pO2 HCO3 ABG pH ABG Total CO2 ABG O2 Saturation ABG O2 Content ABG Base Excess ABG Hemoglobin ABG Carboxyhemoglobin POC ABG HHb (Measured) ABG Methemoglobin ABG O2 Capacity Bob Test A-a O2 Difference Hgb O2 Saturation Vent Mode Mechanical Rate FiO2 Tidal Volume PEEP Sodium 146 Potassium 3.6 Chloride 110 H Carbon Dioxide 28 Anion Gap 12 BUN 35 H Creatinine 1.5 H Est GFR ( Amer) 43 Est GFR (Non-Af Amer) 36 POC Glucose (mg/dL) 125 H Random Glucose 137 H Calcium 8.0 L Total Bilirubin 0.6 AST 75 H D ALT 41 Alkaline Phosphatase 84 Total Creatine Kinase 838 H Troponin I Total Protein 6.7 Albumin 3.0 L Globulin 3.8 Albumin/Globulin Ratio 0.8 L Procalcitonin Prolactin Hepatitis A IgM Ab Hep Bs Antigen Hep B Core IgM Ab Hepatitis C Antibody 07/13/18 05:26 WBC RBC Hgb Hct MCV MCH MCHC RDW Plt Count MPV Neut % (Auto) Lymph % (Auto) [place] % (Auto) Eos % (Auto) Baso % (Auto) Neut # (Auto) Lymph # (Auto) [place] # (Auto) Eos # (Auto) Baso # (Auto) Neutrophils % (Manual) Lymphocytes % (Manual) Monocytes % (Manual) Platelet Estimate Anisocytosis (manual) pCO2 41 pO2 69 L HCO3 26.9 ABG pH 7.43 ABG Total CO2 28.5 H ABG O2 Saturation 94.5 L ABG O2 Content 14.9 L ABG Base Excess 2.6 ABG Hemoglobin 11.4 L ABG Carboxyhemoglobin 0.5 POC ABG HHb (Measured) 5.4 H ABG Methemoglobin 1.1 ABG O2 Capacity 15.8 L Bob Test Yes A-a O2 Difference 308.0 Hgb O2 Saturation 92.9 L Vent Mode Prvc/ac Mechanical Rate 16 FiO2 60.0 Tidal Volume 450 PEEP 5 Sodium Potassium Chloride Carbon Dioxide Anion Gap BUN Creatinine Est GFR ( Amer) Est GFR (Non-Af Amer) POC Glucose (mg/dL) Random Glucose Calcium Total Bilirubin AST ALT Alkaline Phosphatase Total Creatine Kinase Troponin I Total Protein Albumin Globulin Albumin/Globulin Ratio Procalcitonin Prolactin Hepatitis A IgM Ab Hep Bs Antigen Hep B Core IgM Ab Hepatitis C Antibody Radiology Impressions: Radiology Impressions Brain MRI 07/11/18 18:09 IMPRESSION: 1. Multifocal late acute/early subacute infarctions in the left posterior parietal lobe. 2. Small foci of late acute/early subacute infarctions in bilateral parietal subcortical white matter. 3. Increased FLAIR hyperintensity in the left parietal cortical sulci is nonspecific, the differential considerations include subarachnoid hemorrhage, oxygen/anesthesia induced hyperintensity or nonspecific/proteinaceous hyperintense CSF. Clinical follow-up is advised and if clinically indicated, correlation with CT scan may be performed to exclude subarachnoid hemorrhage. Important findings were discussed with Dr. Roche in the ICU on 07/12/2018 at 2:44 p.m. Chest X-Ray 07/11/18 22:19 IMPRESSION: Interval development of right lower lobe collapse. Persistent subsegmental atelectasis in the left lower lobe. Chest X-Ray 07/12/18 09:59 IMPRESSION: Improved aeration right lung. Satisfactory position of recently placed support apparatus. EKG/Cardiology Studies: Cardiology / EKG Studies 07/12/18 07:00 ELECTROCARDIOGRAM Routine Comment: Mode Of Transportation: Reason For Exam: elevated troponin Isolation: Droplet Fingerstick Blood Sugar Results: 105 Assessment/Plan - Assessment and Plan (Free Text) Assessment: A/P: 58 YO Female with PMHx of HIV, Substance abuse, Asthma, bipolar disorder, Hep C was admitted for AMS. Initial dx was of drug overdose given hx of workup findings. Findings consistent with Opioid and benxo use. Subsequent CT head and MRI sig for left posterior parietal lobe. Pt was found to be in respiratory distress while in ICU, was subsequently intubated (07/12). Neuro: AMS, CVA -intubated and sedated -MRI/CT sig for L CVA, pariatal lobe -Neurology on board, Dr. Dennis. C/w with recs -will d/c propofol at this time -start precedex, and wean off intubation Cardio: stable -EKG (07/12) no acute ST or T wave changes -trops elevated likely 2/2 to rhabdo, JOE -echo (07/12) sig for EF 55-60% -cardiology on board Dr. Guevara Respiratory: acute respiratory failure, pneumonia -intubated (07/12/18) -CXR sig for pneumonia, bacterial vs influenza pneumonia -ID on board, Dr. Velazco -will wean off sedation -c/w abx and antiviral ID: HIV, Hep C, Flu pos, pneumonia -last CD4 (03/2018) of 18 -c/w with ARV, abx and tamiflu -ID on board: c/w prophylaxis meds and ARVs Renal: JOE, Rhabdo improving -c/w IVFs, decreased to 60ml/hr GI: NPO, c/w Jevity -As per Nutrition; increase tube feeds by 10mls Q8H prn to goal of 65mls/hr -will need water flushes of 150ml q 6 hrs (once IVF is d.nalini) -start probiotic and c/w PPI Endo: stable Propylaxis -c/w PPI and probiotic -c/w Lovenox SC and scds <Haris Tee - Last Filed: 07/13/18 12:01> CCU Objective - Vital Signs / Intake & Output Vital Signs (Last 4 hours): Vital Signs Temp Pulse Resp BP Pulse Ox 07/13/18 09:00 103 H 18 152/91 H 98 07/13/18 08:00 99.3 F 96 H 17 124/71 96 Intake and Output (Last 8hrs): Intake & Output 07/12/18 07/13/18 07/13/18 22:59 06:59 14:59 Intake Total 1659 1075 149 Output Total 1000 580 Balance 659 495 149 Intake: IV 1219 775 49 Intake, Piggyback 250 Tube Feeding 40 170 100 Free Water Flush 150 130 Output: Urine 1000 580 Urethral (Jimenez) 1000 580 Other: # Bowel Movements 0 - Medications Active Medications: Active Medications Generic Name Dose Route Start Last Admin Trade Name Freq PRN Reason Stop Dose Admin Acetaminophen 650 mg 07/13/18 04:23 07/13/18 04:34 Tylenol 650mg/20.3ml Solution Ud PO 650 mg Q4H PRN Administration Temperature Albuterol/Ipratropium 3 ml 07/12/18 20:00 07/13/18 11:17 Duoneb 3 Mg/0.5 Mg (3 Ml) Ud INH 3 ml RQ4 FAY Administration Aspirin 325 mg 07/13/18 09:00 07/13/18 09:39 Ecotrin PO 325 mg DAILY FAY Administration Atorvastatin Calcium 20 mg 07/13/18 22:00 Lipitor PO HS FAY Dextrose 0 ml 07/11/18 18:48 Dextrose 50% Inj IV STAT PRN Hypoglycemia Protocol Protocol Dextrose 0 gm 07/11/18 18:48 Glutose 15 PO ONCE PRN Hypoglycemia Protocol Protocol Dolutegravir Sodium 50 mg 07/13/18 09:00 07/13/18 09:08 Tivicay PO 50 mg DAILY FAY Administration Protocol Emtricitabine/Tenofovir 1 tab 07/13/18 09:00 07/13/18 09:08 Truvada 200 Mg-300 Mg PO 1 tab DAILY FAY Administration Protocol Enoxaparin Sodium 30 mg 07/13/18 09:00 07/13/18 09:39 Lovenox SC 30 mg DAILY FAY Administration Protocol Glucagon 0 mg 07/11/18 18:48 Glucagen Diagnostic Kit IM STAT PRN Hypoglycemia Protocol Protocol Levofloxacin/Dextrose 750 mg in 150 mls @ 100 mls/hr 07/13/18 09:00 07/13/18 09:10 Levaquin 750mg IVPB 100 mls/hr Q48H FAY Administration Dexmedetomidine HCl 400 mcg/ 100 mls @ 3.68 mls/hr 07/13/18 07:50 07/13/18 10:05 Sodium Chloride IV 07/14/18 07:49 0.6 mcg/kg/hr .Q24H ONE 11.05 mls/hr Titration Protocol 0.2 MCG/KG/HR Lactated Ringer's 1,000 mls @ 60 mls/hr 07/13/18 09:30 Lactated Ringer's IV 07/13/18 22:00 .[id number] FAY Insulin Human Regular 0 units 07/11/18 22:00 07/13/18 09:09 Humulin R SC Not Given ACHS FAY Protocol Lactobacillus Acidophilus 1 cap 07/13/18 09:00 Bacid Acidophilus PO BID FAY Midazolam HCl 2 mg 07/12/18 11:03 07/13/18 02:42 Versed Inj IV 2 mg Q6 PRN Administration Agitation Oseltamivir Phosphate 75 mg 07/12/18 17:00 07/13/18 09:08 Tamiflu Cap PO 75 mg BID FAY Administration Protocol Pantoprazole Sodium 40 mg 07/13/18 09:00 07/13/18 09:07 Protonix Ec Tab PO 40 mg DAILY FAY Administration Trimethoprim/Sulfamethoxazole 20 ml 07/12/18 21:00 07/13/18 09:07 Sulfatrim Pediatric Susp PO 20 ml Q12 FAY Administration Protocol - Patient Studies Lab Studies: Microbiology Studies 07/11/18 18:54 Urine Culture - Final Urine,Catheterized No Growth (<1,000 CFU/ML) 07/11/18 16:50 Blood Culture - Preliminary Blood-Venous NO GROWTH AFTER 24 HOURS Lab Studies 07/13/18 07/13/18 07/13/18 Range/Units 07:44 05:26 04:29 WBC (4.8-10.8) K/uL RBC (3.80-5.20) Mil/uL Hgb (12.0-16.0) g/dL Hct (34.0-47.0) % MCV (81.0-99.0) fl MCH (27.0-31.0) pg MCHC (33.0-37.0) g/dL RDW (11.5-14.5) % Plt Count (130-400) K/uL MPV (7.2-11.7) fl Neut % (Auto) (50.0-75.0) % Lymph % (Auto) (20.0-40.0) % [place] % (Auto) (0.0-10.0) % Eos % (Auto) (0.0-4.0) % Baso % (Auto) (0.0-2.0) % Neut # (Auto) (1.8-7.0) K/uL Lymph # (Auto) (1.0-4.3) K/uL [place] # (Auto) (0.0-0.8) K/uL Eos # (Auto) (0.0-0.7) K/uL Baso # (Auto) (0.0-0.2) K/uL pCO2 41 (35-45) mm/Hg pO2 69 L (80-100) mm/Hg HCO3 26.9 (21-28) mmol/L ABG pH 7.43 (7.35-7.45) ABG Total CO2 28.5 H (22-28) mmol/L ABG O2 Saturation 94.5 L (95-98) % ABG O2 Content 14.9 L (15-23) ML/dL ABG Base Excess 2.6 (-2.0-3.0) mmol/L ABG Hemoglobin 11.4 L (11.7-17.4) g/dL ABG Carboxyhemoglobin 0.5 (0.5-1.5) % POC ABG HHb (Measured) 5.4 H (0.0-5.0) % ABG Methemoglobin 1.1 (0.0-3.0) % ABG O2 Capacity 15.8 L (16-24) mL/dL Bob Test Yes A-a O2 Difference 308.0 mm/Hg Hgb O2 Saturation 92.9 L (95.0-98.0) % Vent Mode Prvc/ac Mechanical Rate 16 FiO2 60.0 % Tidal Volume 450 PEEP 5 Sodium 146 (132-148) mmol/l Potassium 3.6 (3.6-5.0) MMOL/L Chloride 110 H (98-107) mmol/L Carbon Dioxide 28 (22-30) mmol/L Anion Gap 12 (10-20) BUN 35 H (7-17) mg/dl Creatinine 1.5 H (0.7-1.2) mg/dl Est GFR ( Amer) 43 Est GFR (Non-Af Amer) 36 POC Glucose (mg/dL) (65-110) mg/dL Random Glucose 137 H (65-105) mg/dL Calcium 8.0 L (8.4-10.2) mg/dL Total Bilirubin 0.6 (0.2-1.3) mg/dl AST 75 H D (14-36) U/L ALT 41 (9-52) U/L Alkaline Phosphatase 84 (38-126) U/L Total Creatine Kinase 838 H (30-135) U/L Total Protein 6.7 (6.3-8.2) G/DL Albumin 3.0 L (3.5-5.0) g/dL Globulin 3.8 (2.2-3.9) gm/dL Albumin/Globulin Ratio 0.8 L (1.0-2.1) Triglycerides 142 D (0-149) mg/DL Cholesterol 135 (0-199) mg/dL LDL Cholesterol Direct 54 (0-129) mg/dL HDL Cholesterol 39 (30-70) MG/DL Procalcitonin (0.19-0.49) NG/ML Prolactin (3.0-18.9) ng/mL Hepatitis A IgM Ab (NEGATIVE) Hep Bs Antigen (NEGATIVE) Hep B Core IgM Ab (NEGATIVE) Hepatitis C Antibody (NEGATIVE) 07/13/18 07/13/18 07/12/18 Range/Units 04:29 04:17 20:41 WBC 5.8 (4.8-10.8) K/uL RBC 4.16 (3.80-5.20) Mil/uL Hgb 11.4 L (12.0-16.0) g/dL Hct 34.9 (34.0-47.0) % MCV 83.7 D (81.0-99.0) fl MCH 27.3 (27.0-31.0) pg MCHC 32.6 L (33.0-37.0) g/dL RDW 17.4 H (11.5-14.5) % Plt Count 125 L (130-400) K/uL MPV 9.6 (7.2-11.7) fl Neut % (Auto) 76.9 H (50.0-75.0) % Lymph % (Auto) 13.7 L (20.0-40.0) % [place] % (Auto) 8.3 (0.0-10.0) % Eos % (Auto) 0.9 (0.0-4.0) % Baso % (Auto) 0.2 (0.0-2.0) % Neut # (Auto) 4.4 (1.8-7.0) K/uL Lymph # (Auto) 0.8 L (1.0-4.3) K/uL [place] # (Auto) 0.5 (0.0-0.8) K/uL Eos # (Auto) 0.1 (0.0-0.7) K/uL Baso # (Auto) 0.0 (0.0-0.2) K/uL pCO2 (35-45) mm/Hg pO2 (80-100) mm/Hg HCO3 (21-28) mmol/L ABG pH (7.35-7.45) ABG Total CO2 (22-28) mmol/L ABG O2 Saturation (95-98) % ABG O2 Content (15-23) ML/dL ABG Base Excess (-2.0-3.0) mmol/L ABG Hemoglobin (11.7-17.4) g/dL ABG Carboxyhemoglobin (0.5-1.5) % POC ABG HHb (Measured) (0.0-5.0) % ABG Methemoglobin (0.0-3.0) % ABG O2 Capacity (16-24) mL/dL Bob Test A-a O2 Difference mm/Hg Hgb O2 Saturation (95.0-98.0) % Vent Mode Mechanical Rate FiO2 % Tidal Volume PEEP Sodium (132-148) mmol/l Potassium (3.6-5.0) MMOL/L Chloride (98-107) mmol/L Carbon Dioxide (22-30) mmol/L Anion Gap (10-20) BUN (7-17) mg/dl Creatinine (0.7-1.2) mg/dl Est GFR ( Amer) Est GFR (Non-Af Amer) POC Glucose (mg/dL) 125 H 105 (65-110) mg/dL Random Glucose (65-105) mg/dL Calcium (8.4-10.2) mg/dL Total Bilirubin (0.2-1.3) mg/dl AST (14-36) U/L ALT (9-52) U/L Alkaline Phosphatase (38-126) U/L Total Creatine Kinase (30-135) U/L Total Protein (6.3-8.2) G/DL Albumin (3.5-5.0) g/dL Globulin (2.2-3.9) gm/dL Albumin/Globulin Ratio (1.0-2.1) Triglycerides (0-149) mg/DL Cholesterol (0-199) mg/dL LDL Cholesterol Direct (0-129) mg/dL HDL Cholesterol (30-70) MG/DL Procalcitonin (0.19-0.49) NG/ML Prolactin (3.0-18.9) ng/mL Hepatitis A IgM Ab (NEGATIVE) Hep Bs Antigen (NEGATIVE) Hep B Core IgM Ab (NEGATIVE) Hepatitis C Antibody (NEGATIVE) 07/12/18 07/12/18 07/12/18 Range/Units 16:29 12:56 11:15 WBC (4.8-10.8) K/uL RBC (3.80-5.20) Mil/uL Hgb (12.0-16.0) g/dL Hct (34.0-47.0) % MCV (81.0-99.0) fl MCH (27.0-31.0) pg MCHC (33.0-37.0) g/dL RDW (11.5-14.5) % Plt Count (130-400) K/uL MPV (7.2-11.7) fl Neut % (Auto) (50.0-75.0) % Lymph % (Auto) (20.0-40.0) % [place] % (Auto) (0.0-10.0) % Eos % (Auto) (0.0-4.0) % Baso % (Auto) (0.0-2.0) % Neut # (Auto) (1.8-7.0) K/uL Lymph # (Auto) (1.0-4.3) K/uL [place] # (Auto) (0.0-0.8) K/uL Eos # (Auto) (0.0-0.7) K/uL Baso # (Auto) (0.0-0.2) K/uL pCO2 46 H (35-45) mm/Hg pO2 81 (80-100) mm/Hg HCO3 25.0 (21-28) mmol/L ABG pH 7.36 (7.35-7.45) ABG Total CO2 27.4 (22-28) mmol/L ABG O2 Saturation 96.9 (95-98) % ABG O2 Content 15.9 (15-23) ML/dL ABG Base Excess 0.2 (-2.0-3.0) mmol/L ABG Hemoglobin 11.8 (11.7-17.4) g/dL ABG Carboxyhemoglobin 0.9 (0.5-1.5) % POC ABG HHb (Measured) 3.0 (0.0-5.0) % ABG Methemoglobin 1.0 (0.0-3.0) % ABG O2 Capacity 16.4 (16-24) mL/dL Bob Test Yes A-a O2 Difference 289.0 mm/Hg Hgb O2 Saturation 95.1 (95.0-98.0) % Vent Mode A/c Mechanical Rate 16 FiO2 60.0 % Tidal Volume 450 PEEP 5 Sodium (132-148) mmol/l Potassium (3.6-5.0) MMOL/L Chloride (98-107) mmol/L Carbon Dioxide (22-30) mmol/L Anion Gap (10-20) BUN (7-17) mg/dl Creatinine (0.7-1.2) mg/dl Est GFR ( Amer) Est GFR (Non-Af Amer) POC Glucose (mg/dL) 89 118 H (65-110) mg/dL Random Glucose (65-105) mg/dL Calcium (8.4-10.2) mg/dL Total Bilirubin (0.2-1.3) mg/dl AST (14-36) U/L ALT (9-52) U/L Alkaline Phosphatase (38-126) U/L Total Creatine Kinase (30-135) U/L Total Protein (6.3-8.2) G/DL Albumin (3.5-5.0) g/dL Globulin (2.2-3.9) gm/dL Albumin/Globulin Ratio (1.0-2.1) Triglycerides (0-149) mg/DL Cholesterol (0-199) mg/dL LDL Cholesterol Direct (0-129) mg/dL HDL Cholesterol (30-70) MG/DL Procalcitonin (0.19-0.49) NG/ML Prolactin (3.0-18.9) ng/mL Hepatitis A IgM Ab (NEGATIVE) Hep Bs Antigen (NEGATIVE) Hep B Core IgM Ab (NEGATIVE) Hepatitis C Antibody (NEGATIVE) 07/11/18 07/11/18 07/11/18 Range/Units 21:23 20:23 19:17 WBC (4.8-10.8) K/uL RBC (3.80-5.20) Mil/uL Hgb (12.0-16.0) g/dL Hct (34.0-47.0) % MCV (81.0-99.0) fl MCH (27.0-31.0) pg MCHC (33.0-37.0) g/dL RDW (11.5-14.5) % Plt Count (130-400) K/uL MPV (7.2-11.7) fl Neut % (Auto) (50.0-75.0) % Lymph % (Auto) (20.0-40.0) % [place] % (Auto) (0.0-10.0) % Eos % (Auto) (0.0-4.0) % Baso % (Auto) (0.0-2.0) % Neut # (Auto) (1.8-7.0) K/uL Lymph # (Auto) (1.0-4.3) K/uL [place] # (Auto) (0.0-0.8) K/uL Eos # (Auto) (0.0-0.7) K/uL Baso # (Auto) (0.0-0.2) K/uL pCO2 (35-45) mm/Hg pO2 (80-100) mm/Hg HCO3 (21-28) mmol/L ABG pH (7.35-7.45) ABG Total CO2 (22-28) mmol/L ABG O2 Saturation (95-98) % ABG O2 Content (15-23) ML/dL ABG Base Excess (-2.0-3.0) mmol/L ABG Hemoglobin (11.7-17.4) g/dL ABG Carboxyhemoglobin (0.5-1.5) % POC ABG HHb (Measured) (0.0-5.0) % ABG Methemoglobin (0.0-3.0) % ABG O2 Capacity (16-24) mL/dL Bob Test A-a O2 Difference mm/Hg Hgb O2 Saturation (95.0-98.0) % Vent Mode Mechanical Rate FiO2 % Tidal Volume PEEP Sodium (132-148) mmol/l Potassium (3.6-5.0) MMOL/L Chloride (98-107) mmol/L Carbon Dioxide (22-30) mmol/L Anion Gap (10-20) BUN (7-17) mg/dl Creatinine (0.7-1.2) mg/dl Est GFR ( Amer) Est GFR (Non-Af Amer) POC Glucose (mg/dL) (65-110) mg/dL Random Glucose (65-105) mg/dL Calcium (8.4-10.2) mg/dL Total Bilirubin (0.2-1.3) mg/dl AST (14-36) U/L ALT (9-52) U/L Alkaline Phosphatase (38-126) U/L Total Creatine Kinase (30-135) U/L Total Protein (6.3-8.2) G/DL Albumin (3.5-5.0) g/dL Globulin (2.2-3.9) gm/dL Albumin/Globulin Ratio (1.0-2.1) Triglycerides (0-149) mg/DL Cholesterol (0-199) mg/dL LDL Cholesterol Direct (0-129) mg/dL HDL Cholesterol (30-70) MG/DL Procalcitonin 0.64 H (0.19-0.49) NG/ML Prolactin 26.3 H (3.0-18.9) ng/mL Hepatitis A IgM Ab Negative (NEGATIVE) Hep Bs Antigen Negative (NEGATIVE) Hep B Core IgM Ab Negative (NEGATIVE) Hepatitis C Antibody Reactive (NEGATIVE) Laboratory Results - last 24 hr 07/11/18 07/11/18 07/11/18 19:17 20:23 21:23 WBC RBC Hgb Hct MCV MCH MCHC RDW Plt Count MPV Neut % (Auto) Lymph % (Auto) [place] % (Auto) Eos % (Auto) Baso % (Auto) Neut # (Auto) Lymph # (Auto) [place] # (Auto) Eos # (Auto) Baso # (Auto) pCO2 pO2 HCO3 ABG pH ABG Total CO2 ABG O2 Saturation ABG O2 Content ABG Base Excess ABG Hemoglobin ABG Carboxyhemoglobin POC ABG HHb (Measured) ABG Methemoglobin ABG O2 Capacity Bob Test A-a O2 Difference Hgb O2 Saturation Vent Mode Mechanical Rate FiO2 Tidal Volume PEEP Sodium Potassium Chloride Carbon Dioxide Anion Gap BUN Creatinine Est GFR ( Amer) Est GFR (Non-Af Amer) POC Glucose (mg/dL) Random Glucose Calcium Total Bilirubin AST ALT Alkaline Phosphatase Total Creatine Kinase Total Protein Albumin Globulin Albumin/Globulin Ratio Triglycerides Cholesterol LDL Cholesterol Direct HDL Cholesterol Procalcitonin 0.64 H Prolactin 26.3 H Hepatitis A IgM Ab Negative Hep Bs Antigen Negative Hep B Core IgM Ab Negative Hepatitis C Antibody Reactive 07/12/18 07/12/18 07/12/18 11:15 12:56 16:29 WBC RBC Hgb Hct MCV MCH MCHC RDW Plt Count MPV Neut % (Auto) Lymph % (Auto) [place] % (Auto) Eos % (Auto) Baso % (Auto) Neut # (Auto) Lymph # (Auto) [place] # (Auto) Eos # (Auto) Baso # (Auto) pCO2 46 H pO2 81 HCO3 25.0 ABG pH 7.36 ABG Total CO2 27.4 ABG O2 Saturation 96.9 ABG O2 Content 15.9 ABG Base Excess 0.2 ABG Hemoglobin 11.8 ABG Carboxyhemoglobin 0.9 POC ABG HHb (Measured) 3.0 ABG Methemoglobin 1.0 ABG O2 Capacity 16.4 Bob Test Yes A-a O2 Difference 289.0 Hgb O2 Saturation 95.1 Vent Mode A/c Mechanical Rate 16 FiO2 60.0 Tidal Volume 450 PEEP 5 Sodium Potassium Chloride Carbon Dioxide Anion Gap BUN Creatinine Est GFR ( Amer) Est GFR (Non-Af Amer) POC Glucose (mg/dL) 118 H 89 Random Glucose Calcium Total Bilirubin AST ALT Alkaline Phosphatase Total Creatine Kinase Total Protein Albumin Globulin Albumin/Globulin Ratio Triglycerides Cholesterol LDL Cholesterol Direct HDL Cholesterol Procalcitonin Prolactin Hepatitis A IgM Ab Hep Bs Antigen Hep B Core IgM Ab Hepatitis C Antibody 07/12/18 07/13/18 07/13/18 20:41 04:17 04:29 WBC 5.8 RBC 4.16 Hgb 11.4 L Hct 34.9 MCV 83.7 D MCH 27.3 MCHC 32.6 L RDW 17.4 H Plt Count 125 L MPV 9.6 Neut % (Auto) 76.9 H Lymph % (Auto) 13.7 L [place] % (Auto) 8.3 Eos % (Auto) 0.9 Baso % (Auto) 0.2 Neut # (Auto) 4.4 Lymph # (Auto) 0.8 L [place] # (Auto) 0.5 Eos # (Auto) 0.1 Baso # (Auto) 0.0 pCO2 pO2 HCO3 ABG pH ABG Total CO2 ABG O2 Saturation ABG O2 Content ABG Base Excess ABG Hemoglobin ABG Carboxyhemoglobin POC ABG HHb (Measured) ABG Methemoglobin ABG O2 Capacity Bob Test A-a O2 Difference Hgb O2 Saturation Vent Mode Mechanical Rate FiO2 Tidal Volume PEEP Sodium Potassium Chloride Carbon Dioxide Anion Gap BUN Creatinine Est GFR ( Amer) Est GFR (Non-Af Amer) POC Glucose (mg/dL) 105 125 H Random Glucose Calcium Total Bilirubin AST ALT Alkaline Phosphatase Total Creatine Kinase Total Protein Albumin Globulin Albumin/Globulin Ratio Triglycerides Cholesterol LDL Cholesterol Direct HDL Cholesterol Procalcitonin Prolactin Hepatitis A IgM Ab Hep Bs Antigen Hep B Core IgM Ab Hepatitis C Antibody 07/13/18 07/13/18 07/13/18 04:29 05:26 07:44 WBC RBC Hgb Hct MCV MCH MCHC RDW Plt Count MPV Neut % (Auto) Lymph % (Auto) [place] % (Auto) Eos % (Auto) Baso % (Auto) Neut # (Auto) Lymph # (Auto) [place] # (Auto) Eos # (Auto) Baso # (Auto) pCO2 41 pO2 69 L HCO3 26.9 ABG pH 7.43 ABG Total CO2 28.5 H ABG O2 Saturation 94.5 L ABG O2 Content 14.9 L ABG Base Excess 2.6 ABG Hemoglobin 11.4 L ABG Carboxyhemoglobin 0.5 POC ABG HHb (Measured) 5.4 H ABG Methemoglobin 1.1 ABG O2 Capacity 15.8 L Bob Test Yes A-a O2 Difference 308.0 Hgb O2 Saturation 92.9 L Vent Mode Prvc/ac Mechanical Rate 16 FiO2 60.0 Tidal Volume 450 PEEP 5 Sodium 146 Potassium 3.6 Chloride 110 H Carbon Dioxide 28 Anion Gap 12 BUN 35 H Creatinine 1.5 H Est GFR ( Amer) 43 Est GFR (Non-Af Amer) 36 POC Glucose (mg/dL) Random Glucose 137 H Calcium 8.0 L Total Bilirubin 0.6 AST 75 H D ALT 41 Alkaline Phosphatase 84 Total Creatine Kinase 838 H Total Protein 6.7 Albumin 3.0 L Globulin 3.8 Albumin/Globulin Ratio 0.8 L Triglycerides 142 D Cholesterol 135 LDL Cholesterol Direct 54 HDL Cholesterol 39 Procalcitonin Prolactin Hepatitis A IgM Ab Hep Bs Antigen Hep B Core IgM Ab Hepatitis C Antibody Radiology Impressions: Radiology Impressions Brain MRI 07/11/18 18:09 IMPRESSION: 1. Multifocal late acute/early subacute infarctions in the left posterior parietal lobe. 2. Small foci of late acute/early subacute infarctions in bilateral parietal subcortical white matter. 3. Increased FLAIR hyperintensity in the left parietal cortical sulci is nonspecific, the differential considerations include subarachnoid hemorrhage, oxygen/anesthesia induced hyperintensity or nonspecific/proteinaceous hyperintense CSF. Clinical follow-up is advised and if clinically indicated, correlation with CT scan may be performed to exclude subarachnoid hemorrhage. Important findings were discussed with Dr. Roche in the ICU on 07/12/2018 at 2:44 p.m. Chest X-Ray 07/12/18 09:59 IMPRESSION: Improved aeration right lung. Satisfactory position of recently placed support apparatus. Chest X-Ray 07/13/18 05:00 IMPRESSION: ETT and NGT as above. Bilateral lower lobe opacities right greater than left. Small residual right effusion. Tiny left effusion not excluded. Assessment/Plan (1) CVA (cerebral vascular accident) Current Visit: Yes Status: Acute Attending/Attestation - Attestation I have personally seen and examined this patient.: Yes I have fully participated in the care of the patient.: Yes I have reviewed all pertinent clinical information: Yes Notes (Text): 07/13/18 11:25 I have seen and examined the patient. Medical records, lab studies, and imaging were reviewed by me and a management plan was formulated on multidisciplinary rounds with resident Dr. Araya. I agree with their above documented assessment and plan. Patient is on vent with RLL aspiration pneumonia and atelectasis, continue abx. Treating HIV with HAART. She will be difficult to wean given drug abuse history and probable tendency to have withdrawal symptoms. Using precedex, while titrating off propofol. Patient has acute and chronic strokes, continue on ASA. LR@60 for 12 hours more, rhabodymyolysis and JOE improving. Critical Care Time 35 minutes. Multi-disciplinary rounds were performed with house staff, nursing, speech therapy, respiratory therapy, pharmacy and nutrition with integrated input from the primary team/attending and other consulting services. The documented time is cumulative and includes review of patient data/exams/labs/chart review and examination of the patient on rounds and throughout the day; time is exclusive of any procedures or teaching time.
[2018-07-13] MEDS: Dexmedetomidine Hydrochloride 400 MCG in Sodium Chloride 0.9% 96 ML IV ONE ×2 (08:05→16:05)
[2018-07-13] MEDS: Lactated Ringer's 1,000 ML IV SCH (08:20)
[2018-07-13 08:24] LABS: HDL CHOLESTEROL 39 MG/DL (30-70)
[2018-07-13 08:35] LABS: LDL CHOLESTEROL 54 mg/dL (0-129)
[2018-07-13] MEDS: Pantoprazole 40 mg EC Tab PO SCH (09:07)
[2018-07-13] MEDS: Tmp-Smz 200-40mg/5 ml Oral Sus(120 ml) PO SCH ×2 (09:07→22:19)
[2018-07-13] MEDS: Emtricitabine-Tenofovir 200 mg-300 mg Tab PO SCH (09:08)
[2018-07-13] MEDS: Insulin Regular 100 units/ml SC SCH ×4 (09:09→22:00)
[2018-07-13] MEDS: levoFLOXacin 750 mg in D5W 750 MG/150 ML BAG IVPB SCH (09:10)
[2018-07-13] MEDS: Lactobacillus Acidophilus 500 MU Cap PO SCH ×2 (09:13→16:36)
[2018-07-13] MEDS ORDERED: Lactated Ringer's 1,000 ML IV SCH (09:30)
[2018-07-13] MEDS: Aspirin 325 mg EC Tablets PO SCH (09:39)
[2018-07-13] MEDS: Enoxaparin 30 mg Syringe SC SCH (09:39)
--- NOTE | 2018-07-13 09:59 | RAD ---
Date of service: 07/13/2018 HISTORY: Intubated COMPARISON: Comparison made with prior FINDINGS: In situ ETT, tip of which lies approximately 5.5 cm above kelsey. In situ NGT the tip of which is not definitively seen though distal aspect does lie well below EG junction. LUNGS: Bilateral lower lobe opacities right greater than left. Small residual right effusion. Tiny left effusion not excluded. PLEURA: No significant pleural effusion identified, no pneumothorax apparent. CARDIOVASCULAR: No aortic atherosclerotic calcification present. Normal cardiac size. No pulmonary vascular congestion. OSSEOUS STRUCTURES: No significant abnormalities. VISUALIZED UPPER ABDOMEN: Normal. OTHER FINDINGS: None. IMPRESSION: ETT and NGT as above. Bilateral lower lobe opacities right greater than left. Small residual right effusion. Tiny left effusion not excluded.
--- NOTE | 2018-07-13 10:55 | CP.PCM.PN ---
Subjective - Date & Time of Evaluation Date of Evaluation: 07/13/18 Time of Evaluation: 10:55 - Subjective Subjective: Neurology Follow-Up Note: Mrs. Kilgore was evaluated this afternoon in the ICU. She is currently intubated, on mechanical vent, on sedation. ROS is limited due to pt's condition. Chart reviewed in detail. Objective - Vital Signs/Intake and Output Vital Signs (last 24 hours): Temp Pulse Resp BP Pulse Ox 99.3 F 103 H 18 152/91 H 98 07/13/18 08:00 07/13/18 09:00 07/13/18 09:00 07/13/18 09:00 07/13/18 09:00 Intake and Output: 07/13/18 07/13/18 06:59 18:59 Intake Total 2660 149 Output Total 930 Balance 1730 149 - Medications Medications: Current Medications Acetaminophen (Tylenol 650mg/20.3ml Solution Ud) 650 mg PO Q4H PRN PRN Reason: Temperature Last Admin: 07/13/18 04:34 Dose: 650 mg Albuterol/Ipratropium (Duoneb 3 Mg/0.5 Mg (3 Ml) Ud) 3 ml INH RQ4 FAY Last Admin: 07/13/18 07:08 Dose: 3 ml Aspirin (Ecotrin) 325 mg PO DAILY FAY Last Admin: 07/13/18 09:39 Dose: 325 mg Atorvastatin Calcium (Lipitor) 20 mg PO HS FAY Dextrose (Dextrose 50% Inj) 0 ml IV STAT PRN; Protocol PRN Reason: Hypoglycemia Protocol Dextrose (Glutose 15) 0 gm PO ONCE PRN; Protocol PRN Reason: Hypoglycemia Protocol Dolutegravir Sodium (Tivicay) 50 mg PO DAILY FAY; Protocol Last Admin: 07/13/18 09:08 Dose: 50 mg Emtricitabine/Tenofovir (Truvada 200 Mg-300 Mg) 1 tab PO DAILY FAY; Protocol Last Admin: 07/13/18 09:08 Dose: 1 tab Enoxaparin Sodium (Lovenox) 30 mg SC DAILY FAY; Protocol Last Admin: 07/13/18 09:39 Dose: 30 mg Glucagon (Glucagen Diagnostic Kit) 0 mg IM STAT PRN; Protocol PRN Reason: Hypoglycemia Protocol Levofloxacin/Dextrose (Levaquin 750mg) 750 mg in 150 mls @ 100 mls/hr IVPB Q48H FAY Last Admin: 07/13/18 09:10 Dose: 100 mls/hr Dexmedetomidine HCl 400 mcg/ (Sodium Chloride) 100 mls @ 3.68 mls/hr IV .Q24H ONE; Protocol Stop: 07/14/18 07:49 Last Titration: 07/13/18 10:05 Dose: 0.6 mcg/kg/hr, 11.05 mls/hr Lactated Ringer's (Lactated Ringer's) 1,000 mls @ 60 mls/hr IV .[id number] FAY Stop: 07/13/18 22:00 Insulin Human Regular (Humulin R) 0 units SC ACHS FAY; Protocol Last Admin: 07/13/18 09:09 Dose: Not Given Lactobacillus Acidophilus (Bacid Acidophilus) 1 cap PO BID FAY Midazolam HCl (Versed Inj) 2 mg IV Q6 PRN PRN Reason: Agitation Last Admin: 07/13/18 02:42 Dose: 2 mg Oseltamivir Phosphate (Tamiflu Cap) 75 mg PO BID FAY; Protocol Last Admin: 07/13/18 09:08 Dose: 75 mg Pantoprazole Sodium (Protonix Ec Tab) 40 mg PO DAILY FAY Last Admin: 07/13/18 09:07 Dose: 40 mg Trimethoprim/Sulfamethoxazole (Sulfatrim Pediatric Susp) 20 ml PO Q12 FAY; Protocol Last Admin: 07/13/18 09:07 Dose: 20 ml - Labs Labs: 07/13/18 04:29 07/13/18 04:29 PT 11.5 Seconds (9.8-13.1) 07/11/18 19:12 INR 1.0 07/11/18 19:12 APTT 28.9 Seconds (25.6-37.1) 07/11/18 19:12 - Constitutional Appears: Other (intubated on sedation) - Head Exam Head Exam: NORMAL INSPECTION, NORMOCEPHALIC - Eye Exam Pupil Exam: NORMAL ACCOMODATION, PERRL - ENT Exam ENT Exam: Mucous Membranes Moist Additional comments: intubated - Neck Exam Neck Exam: Normal Inspection - Respiratory Exam Respiratory Exam: absent: NORMAL BREATHING PATTERN Additional comments: intubated on mech vent - Cardiovascular Exam Cardiovascular Exam: REGULAR RHYTHM - GI/Abdominal Exam GI & Abdominal Exam: Soft Additional comments: OGT - Extremities Exam Extremities Exam: absent: Calf Tenderness, Full ROM, Pedal Edema Additional comments: on sedation; not moving extremities independently; on exam no resistance upon flexion and extension - Neurological Exam Neurological Exam: absent: Alert, Awake, Oriented x3, Reflexes Normal Neuro motor strength exam: Left Upper Extremity: 0, Right Upper Extremity: 0, Left Lower Extremity: 0, Right Lower Extremity: 0 Additional comments: Intubated, on sedation. Does not respond to pain or sternal rub. Unable to test strength, fine motor, sensation 2/2 pt's condition. On exam no resistance upon flexion and extension. Extremities immediately fall to bed when raised. No clonus, toes downgoing b/l. Reflexes diminished ble +corneal reflex, +gag reflex, + doll's eyes - Psychiatric Exam Additional comments: intubated, on sedation - Skin Skin Exam: Dry, Normal Color Assessment and Plan - Assessment and Plan (Free Text) Assessment: Ms. Kilgore is a 58 y/o female admitted to the ICU after being found unresponsive 2/2 possible drug overdose vs stroke vs seizure.. She is currently intubated on sedation. Unknown events preceding pt being found unresponsive however pt has an extensive drug history. -CTA head and neck recommended once renal function improves. Today creatinine is 1.5; please re-eval renal function tomorrow morning and have CTA done if possible. -VEEG ordered; will f/u with results. -Continue ASA and Statin. -PT, OT once pt can tolerate; ST will re-eval pt once extubated. -Continue to treat and manage other medical issues--has pneumonia, flu -Continue ICU management -Notify neuro team of any changes in pt's condition. Case discussed with Dr. Dennis
--- NOTE | 2018-07-13 13:18 | CP.PCM.PN ---
Subjective - Date & Time of Evaluation Date of Evaluation: 07/13/18 Time of Evaluation: 08:00 - Subjective Subjective: sedated in ICU on vent NAD afebrile all cultures so far negative Objective - Vital Signs/Intake and Output Vital Signs (last 24 hours): Temp Pulse Resp BP Pulse Ox 98.9 F 88 19 131/85 100 07/13/18 12:00 07/13/18 13:00 07/13/18 13:00 07/13/18 13:00 07/13/18 13:00 Intake and Output: 07/13/18 07/13/18 06:59 18:59 Intake Total 2660 843 Output Total 930 Balance 1730 843 - Medications Medications: Current Medications Acetaminophen (Tylenol 650mg/20.3ml Solution Ud) 650 mg PO Q4H PRN PRN Reason: Temperature Last Admin: 07/13/18 04:34 Dose: 650 mg Albuterol/Ipratropium (Duoneb 3 Mg/0.5 Mg (3 Ml) Ud) 3 ml INH RQ4 [facility] Last Admin: 07/13/18 11:17 Dose: 3 ml Aspirin (Ecotrin) 325 mg PO DAILY [facility] Last Admin: 07/13/18 09:39 Dose: 325 mg Atorvastatin Calcium (Lipitor) 20 mg PO HS [facility]AY Dextrose (Dextrose 50% Inj) 0 ml IV STAT PRN; Protocol PRN Reason: Hypoglycemia Protocol Dextrose (Glutose 15) 0 gm PO ONCE PRN; Protocol PRN Reason: Hypoglycemia Protocol Dolutegravir Sodium (Tivicay) 50 mg PO DAILY [facility]; Protocol Last Admin: 07/13/18 09:08 Dose: 50 mg Emtricitabine/Tenofovir (Truvada 200 Mg-300 Mg) 1 tab PO DAILY [facility]; Protocol Last Admin: 07/13/18 09:08 Dose: 1 tab Enoxaparin Sodium (Lovenox) 30 mg SC DAILY [facility]; Protocol Last Admin: 07/13/18 09:39 Dose: 30 mg Glucagon (Glucagen Diagnostic Kit) 0 mg IM STAT PRN; Protocol PRN Reason: Hypoglycemia Protocol Levofloxacin/Dextrose (Levaquin 750mg) 750 mg in 150 mls @ 100 mls/hr IVPB Q48H [facility] Last Admin: 07/13/18 09:10 Dose: 100 mls/hr Dexmedetomidine HCl 400 mcg/ (Sodium Chloride) 100 mls @ 3.68 mls/hr IV .Q24H ONE; Protocol Stop: 07/14/18 07:49 Last Titration: 07/13/18 13:05 Dose: 1.2 mcg/kg/hr, 22.1 mls/hr Lactated Ringer's (Lactated Ringer's) 1,000 mls @ 60 mls/hr IV .[id number] FAY Stop: 07/13/18 22:00 Last Admin: 07/13/18 09:40 Dose: 60 mls/hr Insulin Human Regular (Humulin R) 0 units SC ACHS [facility]; Protocol Last Admin: 07/13/18 12:26 Dose: Not Given Lactobacillus Acidophilus (Bacid Acidophilus) 1 cap PO BID [facility] Last Admin: 07/13/18 09:13 Dose: 1 cap Midazolam HCl (Versed Inj) 2 mg IV Q6 PRN PRN Reason: Agitation Last Admin: 07/13/18 02:42 Dose: 2 mg Oseltamivir Phosphate (Tamiflu Cap) 75 mg PO BID [facility]; Protocol Last Admin: 07/13/18 09:08 Dose: 75 mg Pantoprazole Sodium (Protonix Ec Tab) 40 mg PO DAILY [facility] Last Admin: 07/13/18 09:07 Dose: 40 mg Trimethoprim/Sulfamethoxazole (Sulfatrim Pediatric Susp) 20 ml PO Q12 [facility]; Protocol Last Admin: 07/13/18 09:07 Dose: 20 ml - Labs Labs: 07/13/18 04:29 07/13/18 04:29 PT 11.5 Seconds (9.8-13.1) 07/11/18 19:12 INR 1.0 07/11/18 19:12 APTT 28.9 Seconds (25.6-37.1) 07/11/18 19:12 - Constitutional Appears: No Acute Distress, Confused, Chronically Ill - Head Exam Head Exam: ATRAUMATIC, NORMAL INSPECTION, NORMOCEPHALIC - Eye Exam Eye Exam: PERRL. absent: Scleral icterus - ENT Exam ENT Exam: Mucous Membranes Dry - Neck Exam Neck Exam: absent: Lymphadenopathy - Respiratory Exam Respiratory Exam: Decreased Breath Sounds, Rhonchi - Cardiovascular Exam Cardiovascular Exam: REGULAR RHYTHM, +S1, +S2 - GI/Abdominal Exam GI & Abdominal Exam: Distended, Soft. absent: Tenderness - Rectal Exam Rectal Exam: Deferred - Exam Exam: NORMAL INSPECTION - Extremities Exam Extremities Exam: absent: Pedal Edema - Back Exam Back Exam: absent: CVA tenderness (L), CVA tenderness (R), paraspinal tenderness - Neurological Exam Neurological Exam: Altered Neuro motor strength exam: Left Upper Extremity: 4, Right Upper Extremity: 2/1, Left Lower Extremity: 4, Right Lower Extremity: 2/1 - Psychiatric Exam Psychiatric exam: Depressed - Skin Skin Exam: Dry Assessment and Plan (1) Bipolar disorder, current episode mixed, moderate Status: Acute (2) COPD (chronic obstructive pulmonary disease) Status: Acute (3) HIV (human immunodeficiency virus infection) Status: Acute (4) Cerebrovascular accident (CVA) with hemiparesis Status: Acute (5) Cerebrovascular accident (CVA) with right hemiparesis Status: Acute (6) Respiratory failure Status: Acute (7) Influenza A Status: Acute (8) Rhabdomyolysis Status: Acute (9) JOE (acute kidney injury) Status: Acute - Assessment and Plan (Free Text) Assessment: 58 yo female with Hx COPD, HIV, Hep C is admitted to [facility] with AMS and found to have Influenza A as well as CVA (left parietal ) with right sided weakness Will add Acyclovir empirically in addition to HAART rx and IV antibiotics Cont Bactrim for PCP prophylaxsis Consider CSF analysis if possible as well as EEG
--- NOTE | 2018-07-13 16:03 | PCM.PROC ---
<Elli Araya - Last Filed: 07/13/18 16:01> Procedures Attestation:: I certify that I have explained the specified Operation(s) or Procedure(s), risks, benefits and reasonable alternatives to the Patient and/or other person responsible. The opportunity was given to ask questions and all questions answered - Central Line Placement Right Femoral Triple Lumen Catheter Aseptic technique was employed throughout the procedure: Hand Hygiene done prior to procedure, Full sterile barriers (mask, hair cover, sterile gown, sterile gloves), Full body sterile drape, Chloraprep Antiseptic: 2 minute prep for Femoral CVP Time Out Performed: Yes Central Line Prep: Chlorhexidine-Alcohol Combination Local Anesthesia Used: Lidocaine 2% Amount of Anesthesia Used (mls): 8 Ultrasound Used for Placement: Yes Central Line Lumen Inserted: triple Post Procedure: Sutured in Place, Good Blood Return, All Ports Aspirated, Flushed, Capped, Sterile Dressing Applied Secured by: Suture Post procedure dressing: Chlorhexidine disc (Biopatch) Post Procedure X-Ray: No Patient Tolerated Procedure: Well Immediate Complications: None <Haris Tee - Last Filed: 07/13/18 16:14> Attending/Attestation - Attestation I have personally seen and examined this patient.: Yes I have fully participated in the care of the patient.: Yes I have reviewed all pertinent clinical information, including history, physical exam and plan: Yes Notes (Text): 07/13/18 16:13 I superviesd, assisted and participated in this procedure, with resident physician Dr. Araya. There were no complications and the patient tolerated the procedure well.
[2018-07-13] MEDS: Acyclovir 500 MG in Sodium Chloride 0.9% 100 ML IV SCH (16:37)
--- NOTE | 2018-07-13 16:39 | CP.PCM.PN ---
Subjective - Date & Time of Evaluation Date of Evaluation: 07/13/18 Time of Evaluation: 09:45 - Subjective Subjective: 58 y/o F was seen and evaluated by bedside. Pt is sedated due to agitation, minimally responsive to verbal and tactile stimuli by opening eyes only. Pt was intubated due to agitation and oxygen desaturation. Currently on CPAP, PEEP 8, p ressure support 10, FIO2 60%. Pt afebrile with NO acute events overnight. Objective - Vital Signs/Intake and Output Vital Signs (last 24 hours): Temp Pulse Resp BP Pulse Ox 99.0 F 82 19 153/93 H 100 07/13/18 16:00 07/13/18 16:00 07/13/18 13:00 07/13/18 16:00 07/13/18 16:00 Intake and Output: 07/13/18 07/13/18 06:59 18:59 Intake Total 2660 843 Output Total 930 Balance 1730 843 - Medications Medications: Current Medications Acetaminophen (Tylenol 650mg/20.3ml Solution Ud) 650 mg PO Q4H PRN PRN Reason: Temperature Last Admin: 07/13/18 04:34 Dose: 650 mg Albuterol/Ipratropium (Duoneb 3 Mg/0.5 Mg (3 Ml) Ud) 3 ml INH RQ4 [facility]AY Last Admin: 07/13/18 11:17 Dose: 3 ml Aspirin (Ecotrin) 325 mg PO DAILY [facility] Last Admin: 07/13/18 09:39 Dose: 325 mg Atorvastatin Calcium (Lipitor) 20 mg PO HS [facility]AY Dextrose (Dextrose 50% Inj) 0 ml IV STAT PRN; Protocol PRN Reason: Hypoglycemia Protocol Dextrose (Glutose 15) 0 gm PO ONCE PRN; Protocol PRN Reason: Hypoglycemia Protocol Dolutegravir Sodium (Tivicay) 50 mg PO DAILY [facility]; Protocol Last Admin: 07/13/18 09:08 Dose: 50 mg Emtricitabine/Tenofovir (Truvada 200 Mg-300 Mg) 1 tab PO DAILY [facility]; Protocol Last Admin: 07/13/18 09:08 Dose: 1 tab Enoxaparin Sodium (Lovenox) 30 mg SC DAILY [facility]; Protocol Last Admin: 07/13/18 09:39 Dose: 30 mg Glucagon (Glucagen Diagnostic Kit) 0 mg IM STAT PRN; Protocol PRN Reason: Hypoglycemia Protocol Levofloxacin/Dextrose (Levaquin 750mg) 750 mg in 150 mls @ 100 mls/hr IVPB Q48H [facility] Last Admin: 07/13/18 09:10 Dose: 100 mls/hr Dexmedetomidine HCl 400 mcg/ (Sodium Chloride) 100 mls @ 3.68 mls/hr IV .Q24H ONE; Protocol Stop: 07/14/18 07:49 Last Titration: 07/13/18 13:05 Dose: 1.2 mcg/kg/hr, 22.1 mls/hr Lactated Ringer's (Lactated Ringer's) 1,000 mls @ 60 mls/hr IV .[id number] [facility] Stop: 07/13/18 22:00 Last Admin: 07/13/18 09:40 Dose: 60 mls/hr Acyclovir 500 mg/ Sodium (Chloride) 100 mls @ 100 mls/hr IV Q12H [facility]; Protocol Insulin Human Regular (Humulin R) 0 units SC ACHS [facility]; Protocol Last Admin: 07/13/18 12:26 Dose: Not Given Lactobacillus Acidophilus (Bacid Acidophilus) 1 cap PO BID [facility] Last Admin: 07/13/18 09:13 Dose: 1 cap Midazolam HCl (Versed Inj) 2 mg IV Q6 PRN PRN Reason: Agitation Last Admin: 07/13/18 02:42 Dose: 2 mg Oseltamivir Phosphate (Tamiflu Cap) 75 mg PO BID [facility]; Protocol Last Admin: 07/13/18 09:08 Dose: 75 mg Pantoprazole Sodium (Protonix Ec Tab) 40 mg PO DAILY [facility] Last Admin: 07/13/18 09:07 Dose: 40 mg Trimethoprim/Sulfamethoxazole (Sulfatrim Pediatric Susp) 20 ml PO Q12 [facility]; Protocol Last Admin: 07/13/18 09:07 Dose: 20 ml - Labs Labs: 07/13/18 04:29 07/13/18 04:29 PT 11.5 Seconds (9.8-13.1) 07/11/18 19:12 INR 1.0 07/11/18 19:12 APTT 28.9 Seconds (25.6-37.1) 07/11/18 19:12 - Constitutional Appears: Chronically Ill - Head Exam Head Exam: ATRAUMATIC, NORMAL INSPECTION - Eye Exam Eye Exam: EOMI - ENT Exam ENT Exam: Mucous Membranes Dry - Neck Exam Neck Exam: Full ROM, Normal Inspection. absent: Meningismus - Respiratory Exam Respiratory Exam: Decreased Breath Sounds. absent: Rhonchi, Wheezes Additional comments: INTUBATED - Cardiovascular Exam Cardiovascular Exam: +S1, +S2 - GI/Abdominal Exam GI & Abdominal Exam: Soft. absent: Distended, Guarding, Rigid, Tenderness - Extremities Exam Extremities Exam: Normal Inspection. absent: Joint Swelling, Pedal Edema - Neurological Exam Neurological Exam: Altered. absent: Alert, Awake Assessment and Plan - Assessment and Plan (Free Text) Assessment: 58 y/o F with PMhx of positive HIV, Substance abuse, Asthma, bipolar disorder, Chronic Hep C was brought by EMS after being found unconscious and lethargic. --Head CT: suggestive of left sided ischemia --CXR: Possible pneumonia in lower lobes. ? hilar adenopathy/mass. --MRI Brain: multifocal late acute/early subacte infarctions in L posterior parietal lobe, late acute/early subacute infarctions in L posterior parietal lobe, increased FLAIR hyperintensity in L cortical sulci (possibly subarachnoid hemorrhage, non-specific proteinaceous hyperintense CSF) Plan: >Acute/Subacute ischemic CVA with R hemiparesis. --MRI Brain: multifocal late acute/early subacte infarctions in L posterior parietal lobe, late acute/early subacute infarctions in L posterior parietal lobe, increased FLAIR hyperintensity in L cortical sulci (possibly subarachnoid hemorrhage, non-specific proteinaceous hyperintense CSF) --Neurologic consult Dr Dennis, recommendations appreciated. --Lipid panel ordered: results were WNL. --Lipitor 20mg daily initiated. --Currently edated, on Versed now. --CTA not perfomed yet due to abnormal renal function and potential nephrotoxic constrast. >Acute respiratory failure --Intubated --Currently on: CPAP, PEEP 8, pressure support 10, FIO2 60% --PPI prophylaxis. >Toxic metabolic encephalopathy --Likely secondary to CVA, drug use, seizure --Urine screen positive for opiates and bezodiazepines --Neurologic consult Dr Dennis, recommendations appreciated --seizures precautions --f/u labs in am >Metabolic and Respiratory acidosis --Low bicarb and high pCO2 on admission. --Improving, considering increasing FiO2. --Intubated now. Currently on: CPAP, PEEP 8, pressure support 10, FIO2 60% >Feeding --Increase tube feeds by 10mls Q8H prn to goal of 65mls/hr --Flushes of 150ml q 6 hrs (once IVF is discontinued) --Probiotic and PPI inittaed >Influenza viral infection --afebrile, WBC wnl --On PO Tamiflu --Contact precautions --ID consult, Dr Velazco. >Community acquired Pneumonia --Afebrile, no white count, lactate 0.9 --ID consult, Dr Velazco. --Calculated CrCl was 48. Renal dose medications. --Levaquin IV , renal dose --1x dose of Vancomycin as per ID, Dr Velazco. >Acute renal injury --Dehydration vs rhabdomyolysis --BUN/Cr 35/1.5 --Calculated CrCl was 48. --monitor CPK --continue IVF >Elevated troponins --Cardiology on board, Dr Zahra Guevara. --Probably secondary to rhabdomyolysis. --F/U CPK serum levels >Rhabdomyolysis --Hx of seizures --seizures after intoxication or CVA. --Continue IV gentle hydration since JOE. >HIV --HAART resumed. --HIV viral load and CD4 count ordered --Screen for oportunistic infections. --Acyclovir and Bactrim for prophylaxis. --ID consult, Dr Velazco. >Chronic hepatitis C --Chronic --HCV vral load ordered --ID consult, Dr Velazco. >Prophylaxis --Enoxapain 30mg daily
[2018-07-13 18:44] LABS: RAPID PLASMA REAGIN NONREACTIVE (NONREACTIVE)
[2018-07-13 18:57] LABS: CRYPTOCOCCUS ANTIGEN SERUM NEGATIVE (NEGATIVE)
[2018-07-14] MEDS: Dexmedetomidine Hydrochloride 400 MCG in Sodium Chloride 0.9% 96 ML IV ONE ×2 (00:23→06:19)
[2018-07-14] MEDS: Acyclovir 500 MG in Sodium Chloride 0.9% 100 ML IV SCH ×2 (01:54→12:36)
[2018-07-14] MEDS: Albuterol-Ipratrop 3 mg / 0.5 (3 ml) UD INH SCH ×6 (05:20→23:10)
[2018-07-14 05:58] LABS: ABG ALLEN TEST YES; ARTERIAL BLOOD GAS HEMOGLOBIN 10.9 g/dL (11.7-17.4); ARTERIAL BLOOD GAS O2 CAPACITY 15.2 mL/dL (16-24); ARTERIAL BLOOD GAS O2 CONTENT 14.8 ML/dL (15-23); ARTERIAL BLOOD GAS O2 SAT 97.1 % (95-98); ARTERIAL BLOOD GAS PCO2 33 mm/Hg (35-45); ARTERIAL BLOOD GAS PH 7.48 (7.35-7.45); ARTERIAL BLOOD GAS PO2 101 mm/Hg (80-100); ARTERIAL BLOOD GAS TCO2 25.6 mmol/L (22-28)
[2018-07-14 07:05] LABS: BASO % 0.5 % (0.0-2.0); EOS # 0.1 K/uL (0.0-0.7); EOS % 1.8 % (0.0-4.0); HEMOGLOBIN 10.5 g/dL (12.0-16.0); LYMPH # 0.6 K/uL (1.0-4.3); LYMPH % 13.3 % (20.0-40.0); MEAN CORPUSCULAR HEMOGLOBIN 27.2 pg (27.0-31.0); MEAN CORPUSCULAR HGB CONC 32.4 g/dL (33.0-37.0); MEAN PLATELET VOLUME 9.5 fl (7.2-11.7); MONO # 0.3 K/uL (0.0-0.8); MONO % 7.2 % (0.0-10.0); NEUT # 3.7 K/uL (1.8-7.0); NEUT % 77.2 % (50.0-75.0); RBC 3.86 Mil/uL (3.80-5.20); RED CELL DISTRIBUTION WIDTH 17.5 % (11.5-14.5); WHITE BLOOD COUNT 4.8 K/uL (4.8-10.8)
[2018-07-14 07:37] LABS: ALB/GLOB RATIO 0.8 (1.0-2.1); ALBUMIN 2.8 g/dL (3.5-5.0); CALCIUM 8.3 mg/dL (8.4-10.2)
--- NOTE | 2018-07-14 07:45 | CP.CCUPN ---
CCU Subjective - Physician Review Events Since Last Encounter (Free Text): 07/14/18 07:42 Mildly sedated, on precedex, intubated, opens eyes on verbal command. BP has been stable, this morning/s CMP is pending , will review, all other labs and ABG reviewed. CCU Objective - Vital Signs / Intake & Output Vital Signs (Last 4 hours): Vital Signs Temp Pulse Resp BP Pulse Ox 07/14/18 06:00 94 H 28 H 133/94 H 94 L 07/14/18 05:00 91 H 28 H 115/69 97 07/14/18 04:00 99 F 90 23 115/59 L 96 Intake and Output (Last 8hrs): Intake & Output 07/13/18 07/14/18 07/14/18 22:59 06:59 14:59 Intake Total 1142 160 Output Total 900 1000 Balance 242 -840 Weight 158 lb 6.4 oz Intake: IV 622 110 Intake, Piggyback 200 Tube Feeding 260 Free Water Flush 60 50 Output: Urine 900 1000 Urethral (Jimenez) 900 1000 Other: # Bowel Movements 0 - Physical Exam Narrative Physical Exam (Free Text): 07/14/18 07:44 P/E Neck: No jvd Lungs: decreased breath sounds, bases, bilaterally heart: No gallop Abdomen: soft, BS +ve Ext: no edema Neuro: Pt sedated 07/14/18 07:58 Head: Positive for: Atraumatic, Normocephalic Pupils: Positive for: PERRL Extroacular Muscles: Positive for: EOMI Conjunctiva: Positive for: Normal Mouth: Positive for: Moist Mucous Membranes Pharnyx: Positive for: Normal Nose (External): Positive for: Atraumatic Neck: Positive for: Normal Range of Motion Respiratory/Chest: Positive for: Decreased Breath Sounds (at RLL), Other (course breath sounds b/l ) Cardiovascular: Positive for: Normal S1, S2 Abdomen: Positive for: Normal Bowel Sounds. Negative for: Tenderness, Distention Upper Extremity: Positive for: Normal Inspection, Other (edema noted of the R hand >L hand ) Lower Extremity: Positive for: Normal Inspection, Other (scds on, no edema noted, moving LLE not seen moving RLE ) Neurological: Positive for: Other (right hemiparesis, sedated ). Negative for: GCS=15 Psychiatric: Positive for: Alert - Medications Active Medications: Active Medications Generic Name Dose Route Start Last Admin Trade Name Freq PRN Reason Stop Dose Admin Acetaminophen 650 mg 07/13/18 04:23 07/13/18 23:42 Tylenol 650mg/20.3ml Solution Ud PO 650 mg Q4H PRN Administration Temperature Albuterol/Ipratropium 3 ml 07/12/18 20:00 07/14/18 07:09 Duoneb 3 Mg/0.5 Mg (3 Ml) Ud INH 3 ml RQ4 FAY Administration Aspirin 325 mg 07/13/18 09:00 07/13/18 09:39 Ecotrin PO 325 mg DAILY FAY Administration Atorvastatin Calcium 20 mg 07/13/18 22:00 07/13/18 23:42 Lipitor PO 20 mg HS FAY Administration Dextrose 0 ml 07/11/18 18:48 Dextrose 50% Inj IV STAT PRN Hypoglycemia Protocol Protocol Dextrose 0 gm 07/11/18 18:48 Glutose 15 PO ONCE PRN Hypoglycemia Protocol Protocol Dolutegravir Sodium 50 mg 07/13/18 09:00 07/13/18 09:08 Tivicay PO 50 mg DAILY FAY Administration Protocol Emtricitabine/Tenofovir 1 tab 07/13/18 09:00 07/13/18 09:08 Truvada 200 Mg-300 Mg PO 1 tab DAILY FAY Administration Protocol Enoxaparin Sodium 30 mg 07/13/18 09:00 07/13/18 09:39 Lovenox SC 30 mg DAILY FAY Administration Protocol Glucagon 0 mg 07/11/18 18:48 Glucagen Diagnostic Kit IM STAT PRN Hypoglycemia Protocol Protocol Levofloxacin/Dextrose 750 mg in 150 mls @ 100 mls/hr 07/13/18 09:00 07/13/18 09:10 Levaquin 750mg IVPB 100 mls/hr Q48H FAY Administration Dexmedetomidine HCl 400 mcg/ 100 mls @ 3.68 mls/hr 07/13/18 07:50 07/14/18 06:30 Sodium Chloride IV 07/14/18 07:49 1.7 mcg/kg/hr .Q24H ONE 31.31 mls/hr Titration Protocol 0.2 MCG/KG/HR Acyclovir 500 mg/ Sodium 100 mls @ 100 mls/hr 07/13/18 13:30 07/14/18 01:54 Chloride IV 100 mls/hr Q12H FAY Administration Protocol Insulin Human Regular 0 units 07/11/18 22:00 07/13/18 22:00 Humulin R SC Not Given ACHS FAY Protocol Lactobacillus Acidophilus 1 cap 07/13/18 09:00 07/13/18 16:36 Bacid Acidophilus PO 1 cap BID FAY Administration Midazolam HCl 2 mg 07/12/18 11:03 07/13/18 20:15 Versed Inj IV 2 mg Q6 PRN Administration Agitation Oseltamivir Phosphate 75 mg 07/12/18 17:00 07/13/18 16:37 Tamiflu Cap PO 75 mg BID FAY Administration Protocol Pantoprazole Sodium 40 mg 07/13/18 09:00 07/13/18 09:07 Protonix Ec Tab PO 40 mg DAILY FAY Administration Trimethoprim/Sulfamethoxazole 20 ml 07/12/18 21:00 07/13/18 22:19 Sulfatrim Pediatric Susp PO 20 ml Q12 FAY Administration Protocol - Patient Studies Lab Studies: Microbiology Studies 07/12/18 10:00 MRSA Culture (Admit) - Final Naris MRSA NOT DETECTED 07/11/18 16:50 Blood Culture - Preliminary Blood-Venous NO GROWTH AFTER 48 HOURS 07/11/18 18:54 Urine Culture - Final Urine,Catheterized No Growth (<1,000 CFU/ML) Lab Studies 07/14/18 07/14/18 07/14/18 Range/Units 05:30 05:30 05:29 WBC 4.8 (4.8-10.8) K/uL RBC 3.86 (3.80-5.20) Mil/uL Hgb 10.5 L (12.0-16.0) g/dL Hct 32.4 L (34.0-47.0) % MCV 84.0 (81.0-99.0) fl MCH 27.2 (27.0-31.0) pg MCHC 32.4 L (33.0-37.0) g/dL RDW 17.5 H (11.5-14.5) % Plt Count 142 (130-400) K/uL MPV 9.5 (7.2-11.7) fl Neut % (Auto) 77.2 H (50.0-75.0) % Lymph % (Auto) 13.3 L (20.0-40.0) % Rooks % (Auto) 7.2 (0.0-10.0) % Eos % (Auto) 1.8 (0.0-4.0) % Baso % (Auto) 0.5 (0.0-2.0) % Neut # (Auto) 3.7 (1.8-7.0) K/uL Lymph # (Auto) 0.6 L (1.0-4.3) K/uL Rooks # (Auto) 0.3 (0.0-0.8) K/uL Eos # (Auto) 0.1 (0.0-0.7) K/uL Baso # (Auto) 0.0 (0.0-0.2) K/uL pCO2 33 L (35-45) mm/Hg pO2 101 H (80-100) mm/Hg HCO3 26.0 (21-28) mmol/L ABG pH 7.48 H (7.35-7.45) ABG Total CO2 25.6 (22-28) mmol/L ABG O2 Saturation 97.1 (95-98) % ABG O2 Content 14.8 L (15-23) ML/dL ABG Base Excess 1.4 (-2.0-3.0) mmol/L ABG Hemoglobin 10.9 L (11.7-17.4) g/dL ABG Carboxyhemoglobin 0.5 (0.5-1.5) % POC ABG HHb (Measured) 2.8 (0.0-5.0) % ABG Methemoglobin 1.3 (0.0-3.0) % ABG O2 Capacity 15.2 L (16-24) mL/dL Bob Test Yes A-a O2 Difference 286.0 mm/Hg Hgb O2 Saturation 95.4 (95.0-98.0) % Mechanical Rate 16 FiO2 60.0 % Tidal Volume 450 PEEP 5 Sodium 144 (132-148) mmol/l Potassium 3.0 L (3.6-5.0) MMOL/L Chloride 110 H (98-107) mmol/L Carbon Dioxide 26 (22-30) mmol/L Anion Gap 11 (10-20) BUN 25 H (7-17) mg/dl Creatinine 1.4 H (0.7-1.2) mg/dl Est GFR ( Amer) 47 Est GFR (Non-Af Amer) 39 POC Glucose (mg/dL) (65-110) mg/dL Random Glucose 174 H (65-105) mg/dL Calcium 8.3 L (8.4-10.2) mg/dL Phosphorus 1.8 L (2.5-4.5) mg/dl Magnesium 1.9 (1.6-2.3) MG/DL Total Bilirubin 0.4 (0.2-1.3) mg/dl AST 39 H D (14-36) U/L ALT 34 (9-52) U/L Alkaline Phosphatase 66 (38-126) U/L Total Protein 6.6 (6.3-8.2) G/DL Albumin 2.8 L (3.5-5.0) g/dL Globulin 3.7 (2.2-3.9) gm/dL Albumin/Globulin Ratio 0.8 L (1.0-2.1) Triglycerides (0-149) mg/DL Cholesterol (0-199) mg/dL LDL Cholesterol Direct (0-129) mg/dL HDL Cholesterol (30-70) MG/DL RPR (NONREACTIVE) Cryptococcus Ag (NEGATIVE) Grp A Beta Strep Ag (NEGATIVE) 07/14/18 07/13/18 07/13/18 Range/Units 04:19 21:22 16:30 WBC (4.8-10.8) K/uL RBC (3.80-5.20) Mil/uL Hgb (12.0-16.0) g/dL Hct (34.0-47.0) % MCV (81.0-99.0) fl MCH (27.0-31.0) pg MCHC (33.0-37.0) g/dL RDW (11.5-14.5) % Plt Count (130-400) K/uL MPV (7.2-11.7) fl Neut % (Auto) (50.0-75.0) % Lymph % (Auto) (20.0-40.0) % Rooks % (Auto) (0.0-10.0) % Eos % (Auto) (0.0-4.0) % Baso % (Auto) (0.0-2.0) % Neut # (Auto) (1.8-7.0) K/uL Lymph # (Auto) (1.0-4.3) K/uL Rooks # (Auto) (0.0-0.8) K/uL Eos # (Auto) (0.0-0.7) K/uL Baso # (Auto) (0.0-0.2) K/uL pCO2 (35-45) mm/Hg pO2 (80-100) mm/Hg HCO3 (21-28) mmol/L ABG pH (7.35-7.45) ABG Total CO2 (22-28) mmol/L ABG O2 Saturation (95-98) % ABG O2 Content (15-23) ML/dL ABG Base Excess (-2.0-3.0) mmol/L ABG Hemoglobin (11.7-17.4) g/dL ABG Carboxyhemoglobin (0.5-1.5) % POC ABG HHb (Measured) (0.0-5.0) % ABG Methemoglobin (0.0-3.0) % ABG O2 Capacity (16-24) mL/dL Bob Test A-a O2 Difference mm/Hg Hgb O2 Saturation (95.0-98.0) % Mechanical Rate FiO2 % Tidal Volume PEEP Sodium (132-148) mmol/l Potassium (3.6-5.0) MMOL/L Chloride (98-107) mmol/L Carbon Dioxide (22-30) mmol/L Anion Gap (10-20) BUN (7-17) mg/dl Creatinine (0.7-1.2) mg/dl Est GFR ( Amer) Est GFR (Non-Af Amer) POC Glucose (mg/dL) 143 H 180 H 142 H (65-110) mg/dL Random Glucose (65-105) mg/dL Calcium (8.4-10.2) mg/dL Phosphorus (2.5-4.5) mg/dl Magnesium (1.6-2.3) MG/DL Total Bilirubin (0.2-1.3) mg/dl AST (14-36) U/L ALT (9-52) U/L Alkaline Phosphatase (38-126) U/L Total Protein (6.3-8.2) G/DL Albumin (3.5-5.0) g/dL Globulin (2.2-3.9) gm/dL Albumin/Globulin Ratio (1.0-2.1) Triglycerides (0-149) mg/DL Cholesterol (0-199) mg/dL LDL Cholesterol Direct (0-129) mg/dL HDL Cholesterol (30-70) MG/DL RPR (NONREACTIVE) Cryptococcus Ag (NEGATIVE) Grp A Beta Strep Ag (NEGATIVE) 07/13/18 07/13/18 07/13/18 Range/Units 12:25 07:44 04:29 WBC (4.8-10.8) K/uL RBC (3.80-5.20) Mil/uL Hgb (12.0-16.0) g/dL Hct (34.0-47.0) % MCV (81.0-99.0) fl MCH (27.0-31.0) pg MCHC (33.0-37.0) g/dL RDW (11.5-14.5) % Plt Count (130-400) K/uL MPV (7.2-11.7) fl Neut % (Auto) (50.0-75.0) % Lymph % (Auto) (20.0-40.0) % Rooks % (Auto) (0.0-10.0) % Eos % (Auto) (0.0-4.0) % Baso % (Auto) (0.0-2.0) % Neut # (Auto) (1.8-7.0) K/uL Lymph # (Auto) (1.0-4.3) K/uL Rooks # (Auto) (0.0-0.8) K/uL Eos # (Auto) (0.0-0.7) K/uL Baso # (Auto) (0.0-0.2) K/uL pCO2 (35-45) mm/Hg pO2 (80-100) mm/Hg HCO3 (21-28) mmol/L ABG pH (7.35-7.45) ABG Total CO2 (22-28) mmol/L ABG O2 Saturation (95-98) % ABG O2 Content (15-23) ML/dL ABG Base Excess (-2.0-3.0) mmol/L ABG Hemoglobin (11.7-17.4) g/dL ABG Carboxyhemoglobin (0.5-1.5) % POC ABG HHb (Measured) (0.0-5.0) % ABG Methemoglobin (0.0-3.0) % ABG O2 Capacity (16-24) mL/dL Bob Test A-a O2 Difference mm/Hg Hgb O2 Saturation (95.0-98.0) % Mechanical Rate FiO2 % Tidal Volume PEEP Sodium (132-148) mmol/l Potassium (3.6-5.0) MMOL/L Chloride (98-107) mmol/L Carbon Dioxide (22-30) mmol/L Anion Gap (10-20) BUN (7-17) mg/dl Creatinine (0.7-1.2) mg/dl Est GFR ( Amer) Est GFR (Non-Af Amer) POC Glucose (mg/dL) 143 H (65-110) mg/dL Random Glucose (65-105) mg/dL Calcium (8.4-10.2) mg/dL Phosphorus (2.5-4.5) mg/dl Magnesium (1.6-2.3) MG/DL Total Bilirubin (0.2-1.3) mg/dl AST (14-36) U/L ALT (9-52) U/L Alkaline Phosphatase (38-126) U/L Total Protein (6.3-8.2) G/DL Albumin (3.5-5.0) g/dL Globulin (2.2-3.9) gm/dL Albumin/Globulin Ratio (1.0-2.1) Triglycerides 142 D (0-149) mg/DL Cholesterol 135 (0-199) mg/dL LDL Cholesterol Direct 54 (0-129) mg/dL HDL Cholesterol 39 (30-70) MG/DL RPR Nonreactive (NONREACTIVE) Cryptococcus Ag Negative (NEGATIVE) Grp A Beta Strep Ag (NEGATIVE) 07/12/18 Range/Units 14:00 WBC (4.8-10.8) K/uL RBC (3.80-5.20) Mil/uL Hgb (12.0-16.0) g/dL Hct (34.0-47.0) % MCV (81.0-99.0) fl MCH (27.0-31.0) pg MCHC (33.0-37.0) g/dL RDW (11.5-14.5) % Plt Count (130-400) K/uL MPV (7.2-11.7) fl Neut % (Auto) (50.0-75.0) % Lymph % (Auto) (20.0-40.0) % Rooks % (Auto) (0.0-10.0) % Eos % (Auto) (0.0-4.0) % Baso % (Auto) (0.0-2.0) % Neut # (Auto) (1.8-7.0) K/uL Lymph # (Auto) (1.0-4.3) K/uL Rooks # (Auto) (0.0-0.8) K/uL Eos # (Auto) (0.0-0.7) K/uL Baso # (Auto) (0.0-0.2) K/uL pCO2 (35-45) mm/Hg pO2 (80-100) mm/Hg HCO3 (21-28) mmol/L ABG pH (7.35-7.45) ABG Total CO2 (22-28) mmol/L ABG O2 Saturation (95-98) % ABG O2 Content (15-23) ML/dL ABG Base Excess (-2.0-3.0) mmol/L ABG Hemoglobin (11.7-17.4) g/dL ABG Carboxyhemoglobin (0.5-1.5) % POC ABG HHb (Measured) (0.0-5.0) % ABG Methemoglobin (0.0-3.0) % ABG O2 Capacity (16-24) mL/dL Bob Test A-a O2 Difference mm/Hg Hgb O2 Saturation (95.0-98.0) % Mechanical Rate FiO2 % Tidal Volume PEEP Sodium (132-148) mmol/l Potassium (3.6-5.0) MMOL/L Chloride (98-107) mmol/L Carbon Dioxide (22-30) mmol/L Anion Gap (10-20) BUN (7-17) mg/dl Creatinine (0.7-1.2) mg/dl Est GFR ( Amer) Est GFR (Non-Af Amer) POC Glucose (mg/dL) (65-110) mg/dL Random Glucose (65-105) mg/dL Calcium (8.4-10.2) mg/dL Phosphorus (2.5-4.5) mg/dl Magnesium (1.6-2.3) MG/DL Total Bilirubin (0.2-1.3) mg/dl AST (14-36) U/L ALT (9-52) U/L Alkaline Phosphatase (38-126) U/L Total Protein (6.3-8.2) G/DL Albumin (3.5-5.0) g/dL Globulin (2.2-3.9) gm/dL Albumin/Globulin Ratio (1.0-2.1) Triglycerides (0-149) mg/DL Cholesterol (0-199) mg/dL LDL Cholesterol Direct (0-129) mg/dL HDL Cholesterol (30-70) MG/DL RPR (NONREACTIVE) Cryptococcus Ag (NEGATIVE) Grp A Beta Strep Ag Negative (NEGATIVE) Laboratory Results - last 24 hr 07/12/18 07/13/18 07/13/18 14:00 04:29 07:44 WBC RBC Hgb Hct MCV MCH MCHC RDW Plt Count MPV Neut % (Auto) Lymph % (Auto) Rooks % (Auto) Eos % (Auto) Baso % (Auto) Neut # (Auto) Lymph # (Auto) Rooks # (Auto) Eos # (Auto) Baso # (Auto) pCO2 pO2 HCO3 ABG pH ABG Total CO2 ABG O2 Saturation ABG O2 Content ABG Base Excess ABG Hemoglobin ABG Carboxyhemoglobin POC ABG HHb (Measured) ABG Methemoglobin ABG O2 Capacity Bob Test A-a O2 Difference Hgb O2 Saturation Mechanical Rate FiO2 Tidal Volume PEEP Sodium Potassium Chloride Carbon Dioxide Anion Gap BUN Creatinine Est GFR ( Amer) Est GFR (Non-Af Amer) POC Glucose (mg/dL) Random Glucose Calcium Phosphorus Magnesium Total Bilirubin AST ALT Alkaline Phosphatase Total Protein Albumin Globulin Albumin/Globulin Ratio Triglycerides 142 D Cholesterol 135 LDL Cholesterol Direct 54 HDL Cholesterol 39 RPR Nonreactive Cryptococcus Ag Negative Grp A Beta Strep Ag Negative 07/13/18 07/13/18 07/13/18 12:25 16:30 21:22 WBC RBC Hgb Hct MCV MCH MCHC RDW Plt Count MPV Neut % (Auto) Lymph % (Auto) Rooks % (Auto) Eos % (Auto) Baso % (Auto) Neut # (Auto) Lymph # (Auto) Rooks # (Auto) Eos # (Auto) Baso # (Auto) pCO2 pO2 HCO3 ABG pH ABG Total CO2 ABG O2 Saturation ABG O2 Content ABG Base Excess ABG Hemoglobin ABG Carboxyhemoglobin POC ABG HHb (Measured) ABG Methemoglobin ABG O2 Capacity Bob Test A-a O2 Difference Hgb O2 Saturation Mechanical Rate FiO2 Tidal Volume PEEP Sodium Potassium Chloride Carbon Dioxide Anion Gap BUN Creatinine Est GFR ( Amer) Est GFR (Non-Af Amer) POC Glucose (mg/dL) 143 H 142 H 180 H Random Glucose Calcium Phosphorus Magnesium Total Bilirubin AST ALT Alkaline Phosphatase Total Protein Albumin Globulin Albumin/Globulin Ratio Triglycerides Cholesterol LDL Cholesterol Direct HDL Cholesterol RPR Cryptococcus Ag Grp A Beta Strep Ag 07/14/18 07/14/18 07/14/18 04:19 05:29 05:30 WBC 4.8 RBC 3.86 Hgb 10.5 L Hct 32.4 L MCV 84.0 MCH 27.2 MCHC 32.4 L RDW 17.5 H Plt Count 142 MPV 9.5 Neut % (Auto) 77.2 H Lymph % (Auto) 13.3 L Rooks % (Auto) 7.2 Eos % (Auto) 1.8 Baso % (Auto) 0.5 Neut # (Auto) 3.7 Lymph # (Auto) 0.6 L Rooks # (Auto) 0.3 Eos # (Auto) 0.1 Baso # (Auto) 0.0 pCO2 33 L pO2 101 H HCO3 26.0 ABG pH 7.48 H ABG Total CO2 25.6 ABG O2 Saturation 97.1 ABG O2 Content 14.8 L ABG Base Excess 1.4 ABG Hemoglobin 10.9 L ABG Carboxyhemoglobin 0.5 POC ABG HHb (Measured) 2.8 ABG Methemoglobin 1.3 ABG O2 Capacity 15.2 L Bob Test Yes A-a O2 Difference 286.0 Hgb O2 Saturation 95.4 Mechanical Rate 16 FiO2 60.0 Tidal Volume 450 PEEP 5 Sodium Potassium Chloride Carbon Dioxide Anion Gap BUN Creatinine Est GFR ( Amer) Est GFR (Non-Af Amer) POC Glucose (mg/dL) 143 H Random Glucose Calcium Phosphorus Magnesium Total Bilirubin AST ALT Alkaline Phosphatase Total Protein Albumin Globulin Albumin/Globulin Ratio Triglycerides Cholesterol LDL Cholesterol Direct HDL Cholesterol RPR Cryptococcus Ag Grp A Beta Strep Ag 07/14/18 05:30 WBC RBC Hgb Hct MCV MCH MCHC RDW Plt Count MPV Neut % (Auto) Lymph % (Auto) Rooks % (Auto) Eos % (Auto) Baso % (Auto) Neut # (Auto) Lymph # (Auto) Rooks # (Auto) Eos # (Auto) Baso # (Auto) pCO2 pO2 HCO3 ABG pH ABG Total CO2 ABG O2 Saturation ABG O2 Content ABG Base Excess ABG Hemoglobin ABG Carboxyhemoglobin POC ABG HHb (Measured) ABG Methemoglobin ABG O2 Capacity Bob Test A-a O2 Difference Hgb O2 Saturation Mechanical Rate FiO2 Tidal Volume PEEP Sodium 144 Potassium 3.0 L Chloride 110 H Carbon Dioxide 26 Anion Gap 11 BUN 25 H Creatinine 1.4 H Est GFR ( Amer) 47 Est GFR (Non-Af Amer) 39 POC Glucose (mg/dL) Random Glucose 174 H Calcium 8.3 L Phosphorus 1.8 L Magnesium 1.9 Total Bilirubin 0.4 AST 39 H D ALT 34 Alkaline Phosphatase 66 Total Protein 6.6 Albumin 2.8 L Globulin 3.7 Albumin/Globulin Ratio 0.8 L Triglycerides Cholesterol LDL Cholesterol Direct HDL Cholesterol RPR Cryptococcus Ag Grp A Beta Strep Ag Radiology Impressions: Radiology Impressions Chest X-Ray 07/13/18 05:00 IMPRESSION: ETT and NGT as above. Bilateral lower lobe opacities right greater than left. Small residual right effusion. Tiny left effusion not excluded. Fingerstick Blood Sugar Results: 180 Critical Care Progress Note - Vent Settings MODE:: ASSIST CONTROL TIDAL VOLUME:: 450 RESP RATE:: 12 FIO2:: 50 PEEP:: 5 - Extremities/Vascular Does the Patient have a Central Venous Catheter?: Yes Insertion Site: Femoral Vein Does the Patient need a Central Venous Catheter?: Yes Does the Patient have a Jimenez Catheter?: Yes Does the Patient need a Jimenez Catheter?: Yes - Restraints Justification for Restraints: High risk for self extubation - Prophylaxis GI Prophylaxis GI: PPI - Prophylaxis DVT Prophylaxis DVT: Lovenox Assessment/Plan - Assessment and Plan (Free Text) Assessment: ASSESSMENT and PLAN: 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 --MRI Brain: multifocal late acute/early subacte infarctions in L posterior parietal lobe, late acute/early subacute infarctions in L posterior parietal lobe, increased FLAIR hyperintensity in L cortical sulci (possibly subarachnoid hemorrhage, non-specific proteinaceous hyperintense CSF) --Video EEG monitoring as per Neurology --Lipitor 20mg daily initiated. --Mild sedation with precedex. --This morning labs are awaited, if renal function improved or stable, CTA could be performed if indicated , as per neuro. >Respiratory failure --Intubated ABG reviewed Vent setting changed to AC Rate 12/m VT 450 cc, PEEP 5, Fio decreased to 50% ----PPI prophylaxis. >Toxic metabolic encephalopathy --Likely secondary to CVA, drug use, seizure --Urine screen positive for opiates and bezodiazepines ----seizures precautions >Feeding --On tube feeding , tolerating at goal, 55/hr --Flushes of 150ml q 6 hrs (once IVF is discontinued) --Probiotic and PPI inittaed >Influenza viral infection --afebrile, WBC wnl --On PO Tamiflu --Contact precautions --ID consult, Dr Velazco. >Community acquired Pneumonia --Afebrile, no white count, lactate 0.9 --ID consult, Dr Velazco. --Calculated CrCl was 48. Renal dose medications. --Levaquin IV , renal dose --1x dose of Vancomycin as per ID, Dr Velazco. >Acute renal injury --Dehydration vs rhabdomyolysis --Improving ---monitor CPK --continue IVF >Elevated troponins --Cardiology on board, Dr Zahra Guevara. --Probably secondary to rhabdomyolysis. --F/U CPK serum levels >Rhabdomyolysis --Hx of seizures --seizures after intoxication or CVA. --Continue IV gentle hydration since JOE. >HIV --HAART resumed. --HIV viral load and CD4 count ordered --Screen for oportunistic infections. --Acyclovir and Bactrim for prophylaxis. --ID consult, Dr Velazco. >Chronic hepatitis C --Chronic --HCV vral load ordered --ID consult, Dr Velazco. >Prophylaxis --Enoxapain 30mg daily
[2018-07-14] MEDS ORDERED: Dexmedetomidine Hydrochloride 400 MCG in Sodium Chloride 0.9% 96 ML IV ONE ×2 (07:53→12:18)
[2018-07-14] MEDS: Tmp-Smz 200-40mg/5 ml Oral Sus(120 ml) PO SCH ×2 (08:44→21:12)
[2018-07-14] MEDS: Emtricitabine-Tenofovir 200 mg-300 mg Tab PO SCH (08:45)
[2018-07-14] MEDS: Enoxaparin 30 mg Syringe SC SCH (08:45)
[2018-07-14] MEDS: Lactobacillus Acidophilus 500 MU Cap PO SCH ×2 (08:45→16:04)
[2018-07-14] MEDS: Insulin Regular 100 units/ml SC SCH ×4 (08:46→21:12)
[2018-07-14] MEDS: Aspirin 325 mg EC Tablets PO SCH (08:47)
[2018-07-14] MEDS: Pantoprazole 40 mg EC Tab PO SCH (08:47)
[2018-07-14] MEDS: Potassium CL 10 MEQ/50 ML 50 ML IV SCH ×6 (10:04→17:55)
[2018-07-14] MEDS ORDERED: Lactulose 10 gm/15 ml (Rectal Use) PR PRN (10:38)
--- NOTE | 2018-07-14 11:05 | CP.PCM.PN ---
Subjective - Date & Time of Evaluation Date of Evaluation: 07/14/18 Time of Evaluation: 09:30 - Subjective Subjective: 58 y/o F was seen and examined by bedside. Pt was examined ~25 mins after sedation was stopped. Pt is responsive by slightly opening eyes to loud verbal stimuli and tactile stimuli, able to move left hand a little, L foot plantar reflex elicit minimal reaction, R side of body remains flaccid. Pt afebrile, intubated, Jimenez cath in place, NG tube in place, VEEG bein performed, with NO events overnight. --No bowel movement for 2 days, abdomen is distended. --Intubated, PRVC A/C, RR 12, PEEP 5, FiO2 50%, 450mL tidal volume. Objective - Vital Signs/Intake and Output Vital Signs (last 24 hours): Temp Pulse Resp BP Pulse Ox 99.5 F 85 22 129/79 96 07/14/18 07:46 07/14/18 10:00 07/14/18 10:00 07/14/18 10:00 07/14/18 10:00 Intake and Output: 07/14/18 07/14/18 06:59 18:59 Intake Total 400 418 Output Total 1000 275 Balance -600 143 - Medications Medications: Current Medications Acetaminophen (Tylenol 650mg/20.3ml Solution Ud) 650 mg PO Q4H PRN PRN Reason: Temperature Last Admin: 07/13/18 23:42 Dose: 650 mg Albuterol/Ipratropium (Duoneb 3 Mg/0.5 Mg (3 Ml) Ud) 3 ml INH RQ4 FAY Last Admin: 07/14/18 07:09 Dose: 3 ml Aspirin (Aspirin) 325 mg PO DAILY [facility] Atorvastatin Calcium (Lipitor) 20 mg PO HS FAY Last Admin: 07/13/18 23:42 Dose: 20 mg Dextrose (Dextrose 50% Inj) 0 ml IV STAT PRN; Protocol PRN Reason: Hypoglycemia Protocol Dextrose (Glutose 15) 0 gm PO ONCE PRN; Protocol PRN Reason: Hypoglycemia Protocol Dolutegravir Sodium (Tivicay) 50 mg PO DAILY [facility]; Protocol Last Admin: 07/14/18 08:45 Dose: 50 mg Emtricitabine/Tenofovir (Truvada 200 Mg-300 Mg) 1 tab PO DAILY [facility]AY; Protocol Last Admin: 07/14/18 08:45 Dose: 1 tab Enoxaparin Sodium (Lovenox) 30 mg SC DAILY [facility]; Protocol Last Admin: 07/14/18 08:45 Dose: 30 mg Glucagon (Glucagen Diagnostic Kit) 0 mg IM STAT PRN; Protocol PRN Reason: Hypoglycemia Protocol Levofloxacin/Dextrose (Levaquin 750mg) 750 mg in 150 mls @ 100 mls/hr IVPB Q48H FAY Last Admin: 07/13/18 09:10 Dose: 100 mls/hr Acyclovir 500 mg/ Sodium (Chloride) 100 mls @ 100 mls/hr IV Q12H [facility]AY; Protocol Last Admin: 07/14/18 01:54 Dose: 100 mls/hr Dexmedetomidine HCl 400 mcg/ (Sodium Chloride) 100 mls @ 28.74 mls/hr IV .Q3H29M ONE; Protocol Stop: 07/14/18 11:21 Last Admin: 07/14/18 10:05 Dose: 1.6 mcg/kg/hr, 28.74 mls/hr Potassium Chloride (Potassium Cl 10meq/50ml Sterile Water) 50 mls @ 50 mls/hr IV Q1 FAY Stop: 07/14/18 14:59 Last Admin: 07/14/18 10:04 Dose: 50 mls/hr Insulin Human Regular (Humulin R) 0 units SC ACHS FAY; Protocol Last Admin: 07/14/18 08:46 Dose: Not Given Lactobacillus Acidophilus (Bacid Acidophilus) 1 cap PO BID FAY Last Admin: 07/14/18 08:45 Dose: 1 cap Lactulose (Enulose) 10 gm PO DAILY PRN PRN Reason: Constipation Midazolam HCl (Versed Inj) 2 mg IV Q6 PRN PRN Reason: Agitation Last Admin: 07/13/18 20:15 Dose: 2 mg Oseltamivir Phosphate (Tamiflu Cap) 75 mg PO BID [facility]; Protocol Last Admin: 07/14/18 08:45 Dose: 75 mg Pantoprazole Sodium (Protonix Susp) 40 mg NG DAILY [facility] Trimethoprim/Sulfamethoxazole (Sulfatrim Pediatric Susp) 20 ml PO Q12 FAY; Protocol Last Admin: 07/14/18 08:44 Dose: 20 ml - Labs Labs: 07/14/18 05:30 07/14/18 05:30 PT 11.5 Seconds (9.8-13.1) 07/11/18 19:12 INR 1.0 07/11/18 19:12 APTT 28.9 Seconds (25.6-37.1) 07/11/18 19:12 - Constitutional Appears: Chronically Ill - Head Exam Head Exam: ATRAUMATIC - ENT Exam ENT Exam: Mucous Membranes Moist - Neck Exam Neck Exam: Normal Inspection - Respiratory Exam Respiratory Exam: Rales. absent: Rhonchi, Wheezes Additional comments: Intubated. - Cardiovascular Exam Cardiovascular Exam: REGULAR RHYTHM, +S1, +S2 - GI/Abdominal Exam GI & Abdominal Exam: Distended, Soft. absent: Guarding, Rigid, Tenderness - Extremities Exam Extremities Exam: absent: Calf Tenderness - Neurological Exam Neurological Exam: absent: Alert, Awake Assessment and Plan - Assessment and Plan (Free Text) Assessment: 58 y/o F with PMhx of positive HIV, Substance abuse, Asthma, bipolar disorder, Chronic Hep C was brought by EMS after being found unconscious and lethargic. --Head CT: suggestive of left sided ischemia --CXR: Possible pneumonia in lower lobes. ? hilar adenopathy/mass. --MRI Brain: multifocal late acute/early subacte infarctions in L posterior parietal lobe, late acute/early subacute infarctions in L posterior parietal lobe, increased FLAIR hyperintensity in L cortical sulci (possibly subarachnoid hemorrhage, non-specific proteinaceous hyperintense CSF) --Lipid panel ordered: results were WNL. Plan: >Acute/Subacute ischemic CVA with R hemiparesis. --Neurologic consult Dr Dennis, recommendations appreciated. --VEEG as per Neurology team. --Lipitor 20mg daily --CTA to be performed when renal function improves. >Acute respiratory failure --Intubated --Currently on: CPAP, PEEP 8, pressure support 10, FIO2 60% --PPI prophylaxis. >Toxic metabolic encephalopathy --Likely secondary to CVA, drug use, seizure --Urine screen positive for opiates and bezodiazepines --Neurologic consult Dr Dennis, recommendations appreciated --seizures precautions >Metabolic and Respiratory acidosis --Low bicarb and high pCO2 on admission. --Improving. --Intubated now. Currently on: PRVC A/C, RR 12, PEEP 5, FiO2 50%, 450mL tidal volume. >Constipation --Abdominal distension on examination --No BM for 2 days --Lactulose 10mg daily PRN. >Feeding --Goal of 65mls/hr --Flushes of 150ml q 6 hrs (once IVF is discontinued) --Probiotic and PPI inittaed >Hypokalemia --Serum K+ 3.0-today --6omEq KCl being supplemented. >Influenza viral infection --afebrile, WBC wnl --On PO Tamiflu --Contact precautions --ID consult, Dr Velazco. >Community acquired Pneumonia --Afebrile, no white count, lactate 0.9 --ID consult, Dr Velazco. --Calculated CrCl was 50. Renal dose medications. --Levaquin IV , renal dose >Acute renal injury --Due to Dehydration vs rhabdomyolysis --BUN/Cr 25/1.4 --Calculated CrCl was 50. C/w medication at renal dose. --Monitor CPK --continue IVF >Elevated troponins --Cardiology on board, Dr Zahra Guevara. --Secondary to rhabdomyolysis. --F/U CPK serum levels >Rhabdomyolysis --Hx of seizures --seizures after intoxication or CVA. --Continue IV hydration since JOE. >HIV --HAART resumed. --HIV viral load and CD4 count ordered --Screen for oportunistic infections. --Acyclovir and Bactrim for prophylaxis. --ID consult, Dr Velazco. >Chronic hepatitis C --Chronic --HCV vral load ordered --ID consult, Dr Velazco. >Prophylaxis --Enoxapain 30mg daily
[2018-07-14] MEDS: Pantoprazole 40 mg Susp UD NG SCH (12:27)
--- NOTE | 2018-07-14 14:31 | RAD ---
Date of service: 07/14/2018 HISTORY: Intubated COMPARISON: Comparison chest 07/13/2018 FINDINGS: In situ ETT, tip of which lies approximately 5.2 cm above kelsey. NGT tip lies overlies left upper quadrant of the abdomen LUNGS: Persistent but slightly improved bibasilar opacities which may represent some combination of atelectasis and or infiltrate. Residual small right-sided effusion felt be present PLEURA: No significant pleural effusion identified, no pneumothorax apparent. CARDIOVASCULAR: No aortic atherosclerotic calcification present. Normal cardiac size. No pulmonary vascular congestion. OSSEOUS STRUCTURES: No significant abnormalities. VISUALIZED UPPER ABDOMEN: Normal. OTHER FINDINGS: None. IMPRESSION: ETT and NGT as above. Persistent but slightly improved bibasilar opacities which may represent some combination of atelectasis and or infiltrate. Residual small right-sided effusion felt be present
[2018-07-14] MEDS: Lactulose 10 gm/15 ml Syrup PO PRN (16:04)
[2018-07-14 16:17] LABS: % CD4 (T HELPER CELL) 17 Percent (30-61); % CD8 (SUPPRESSOR T CELL) 66 Percent (12-42); ABSOLUTE CD4 CELLS 135 Cells/mcL (490-1740); ABSOLUTE CD8 CELLS 520 Cells/mcL (180-1170); ABSOLUTE LYMPHOCYTES 793 Cells/mcL (850-3900); HELPER/SUPPRESSOR RATIO 0.26 Ratio (0.86-5.00)
[2018-07-14] MEDS: Dexmedetomidine Hydrochloride 400 MCG in Sodium Chloride 0.9% 96 ML IV SCH ×2 (19:04→22:07)
[2018-07-15] MEDS: Dexmedetomidine Hydrochloride 400 MCG in Sodium Chloride 0.9% 96 ML IV SCH ×7 (01:09→20:13)
[2018-07-15] MEDS: Acyclovir 500 MG in Sodium Chloride 0.9% 100 ML IV SCH ×2 (01:10→12:55)
[2018-07-15] MEDS: Albuterol-Ipratrop 3 mg / 0.5 (3 ml) UD INH SCH ×6 (05:13→23:19)
[2018-07-15 05:19] LABS: ABG ALLEN TEST YES; ARTERIAL BLOOD GAS HEMOGLOBIN 10.8 g/dL (11.7-17.4); ARTERIAL BLOOD GAS O2 CONTENT 14.5 ML/dL (15-23); ARTERIAL BLOOD GAS O2 SAT 96.8 % (95-98); ARTERIAL BLOOD GAS PCO2 33 mm/Hg (35-45); ARTERIAL BLOOD GAS PH 7.46 (7.35-7.45); ARTERIAL BLOOD GAS PO2 89 mm/Hg (80-100); ARTERIAL BLOOD GAS TCO2 24.5 mmol/L (22-28)
[2018-07-15 06:38] LABS: BASO % 0.4 % (0.0-2.0); EOS # 0.1 K/uL (0.0-0.7); EOS % 2.8 % (0.0-4.0); HEMOGLOBIN 10.6 g/dL (12.0-16.0); LYMPH # 0.7 K/uL (1.0-4.3); LYMPH % 12.8 % (20.0-40.0); MEAN CELL VOLUME 83.1 fl (81.0-99.0); MEAN CORPUSCULAR HEMOGLOBIN 27.5 pg (27.0-31.0); MEAN CORPUSCULAR HGB CONC 33.2 g/dL (33.0-37.0); MEAN PLATELET VOLUME 9.4 fl (7.2-11.7); MONO # 0.4 K/uL (0.0-0.8); MONO % 8.1 % (0.0-10.0); NEUT # 3.9 K/uL (1.8-7.0); NEUT % 75.9 % (50.0-75.0); RBC 3.84 Mil/uL (3.80-5.20); RED CELL DISTRIBUTION WIDTH 17.8 % (11.5-14.5); WHITE BLOOD COUNT 5.2 K/uL (4.8-10.8)
[2018-07-15 07:18] LABS: ALB/GLOB RATIO 0.8 (1.0-2.1)
[2018-07-15] MEDS: Enoxaparin 30 mg Syringe SC SCH (08:11)
[2018-07-15] MEDS: levoFLOXacin 750 mg in D5W 750 MG/150 ML BAG IVPB SCH (08:11)
[2018-07-15] MEDS: Pantoprazole 40 mg Susp UD NG SCH (08:12)
[2018-07-15] MEDS: Emtricitabine-Tenofovir 200 mg-300 mg Tab PO SCH (08:15)
[2018-07-15] MEDS: Lactobacillus Acidophilus 500 MU Cap PO SCH ×2 (08:18→17:05)
[2018-07-15] MEDS: Insulin Regular 100 units/ml SC SCH ×4 (08:30→21:10)
--- NOTE | 2018-07-15 08:46 | CP.CCUPN ---
CCU Subjective - Physician Review Events Since Last Encounter (Free Text): 07/15/18 08:43 Sedated, intubated, no ready for weaning yet BP stable, renal function improved. CCU Objective - Vital Signs / Intake & Output Vital Signs (Last 4 hours): Vital Signs Temp Pulse Resp BP Pulse Ox 07/15/18 08:00 98.9 F 92 H 23 136/88 98 07/15/18 07:00 92 H 18 128/79 99 07/15/18 06:00 90 25 H 121/79 96 07/15/18 05:00 90 34 H 136/92 H 97 Intake and Output (Last 8hrs): Intake & Output 07/14/18 07/15/18 07/15/18 22:59 06:59 14:59 Intake Total 1170 1360 115 Output Total 175 900 Balance 995 460 115 Intake: IV 340 440 115 Intake, Piggyback 100 100 Tube Feeding 520 520 Free Water Flush 210 300 Output: Urine 175 900 Urethral (Jimenez) 175 900 Other: # Bowel Movements 0 - Physical Exam Narrative Physical Exam (Free Text): 07/15/18 08:44 P/E Neck: No JVD Lungs: Rt basal crackles Abdomen; soft, non-tender Ext: No edema heart: No gallop Head: Positive for: Atraumatic, Normocephalic Pupils: Positive for: PERRL Extroacular Muscles: Positive for: EOMI Conjunctiva: Positive for: Normal Mouth: Positive for: Moist Mucous Membranes Pharnyx: Positive for: Normal Nose (External): Positive for: Atraumatic Neck: Positive for: Normal Range of Motion Respiratory/Chest: Positive for: Decreased Breath Sounds (at RLL), Other (course breath sounds b/l ) Cardiovascular: Positive for: Normal S1, S2 Abdomen: Positive for: Normal Bowel Sounds. Negative for: Tenderness, Distention Upper Extremity: Positive for: Normal Inspection, Other (edema noted of the R hand >L hand ) Lower Extremity: Positive for: Normal Inspection, Other (scds on, no edema noted, moving LLE not seen moving RLE ) Neurological: Positive for: Other (right hemiparesis, sedated ). Negative for: GCS=15 Psychiatric: Positive for: Alert - Medications Active Medications: Active Medications Generic Name Dose Route Start Last Admin Trade Name Freq PRN Reason Stop Dose Admin Acetaminophen 650 mg 07/13/18 04:23 07/13/18 23:42 Tylenol 650mg/20.3ml Solution Ud PO 650 mg Q4H PRN Administration Temperature Albuterol/Ipratropium 3 ml 07/12/18 20:00 07/15/18 07:04 Duoneb 3 Mg/0.5 Mg (3 Ml) Ud INH 3 ml RQ4 FAY Administration Aspirin 325 mg 07/14/18 09:15 07/15/18 08:18 Aspirin PO 325 mg DAILY [facility]AY Administration Atorvastatin Calcium 20 mg 07/13/18 22:00 07/14/18 21:12 Lipitor PO 20 mg HS FAY Administration Dextrose 0 ml 07/11/18 18:48 Dextrose 50% Inj IV STAT PRN Hypoglycemia Protocol Protocol Dextrose 0 gm 07/11/18 18:48 Glutose 15 PO ONCE PRN Hypoglycemia Protocol Protocol Dolutegravir Sodium 50 mg 07/13/18 09:00 07/15/18 08:14 Tivicay PO 50 mg DAILY [facility] Administration Protocol Emtricitabine/Tenofovir 1 tab 07/13/18 09:00 07/15/18 08:15 Truvada 200 Mg-300 Mg PO 1 tab DAILY [facility]AY Administration Protocol Enoxaparin Sodium 30 mg 07/13/18 09:00 07/15/18 08:11 Lovenox SC 30 mg DAILY [facility] Administration Protocol Glucagon 0 mg 07/11/18 18:48 Glucagen Diagnostic Kit IM STAT PRN Hypoglycemia Protocol Protocol Levofloxacin/Dextrose 750 mg in 150 mls @ 100 mls/hr 07/13/18 09:00 07/15/18 08:11 Levaquin 750mg IVPB 100 mls/hr Q48H FAY Administration Acyclovir 500 mg/ Sodium 100 mls @ 100 mls/hr 07/13/18 13:30 07/15/18 01:10 Chloride IV 100 mls/hr Q12H FAY Administration Protocol Dexmedetomidine HCl 400 mcg/ 100 mls @ 28.74 mls/hr 07/14/18 17:47 07/15/18 07:30 Sodium Chloride IV 1.69 mcg/kg/hr .Q3H29M FAY 30.4 mls/hr Administration Protocol 1.6 MCG/KG/HR Insulin Human Regular 0 units 07/11/18 22:00 07/14/18 21:12 Humulin R SC Not Given ACHS FAY Protocol Lactobacillus Acidophilus 1 cap 07/13/18 09:00 07/15/18 08:18 Bacid Acidophilus PO 1 cap BID FAY Administration Lactulose 10 gm 07/14/18 10:54 07/14/18 16:04 Enulose PO 10 gm DAILY PRN Administration Constipation Midazolam HCl 2 mg 07/12/18 11:03 07/13/18 20:15 Versed Inj IV 2 mg Q6 PRN Administration Agitation Oseltamivir Phosphate 75 mg 07/12/18 17:00 07/15/18 08:13 Tamiflu Cap PO 75 mg BID FAY Administration Protocol Pantoprazole Sodium 40 mg 07/14/18 09:15 07/15/18 08:12 Protonix Susp NG 40 mg DAILY FAY Administration - Patient Studies Lab Studies: Microbiology Studies 07/11/18 16:50 Blood Culture - Preliminary Blood-Venous NO GROWTH AFTER 3 DAYS 07/12/18 14:00 Group A Strep Throat Culture - Final Throat NO BETA STREP GROUP A ISOLATED. Lab Studies 07/15/18 07/15/18 07/15/18 Range/Units 05:30 05:30 05:22 WBC 5.2 (4.8-10.8) K/uL RBC 3.84 (3.80-5.20) Mil/uL Hgb 10.6 L (12.0-16.0) g/dL Hct 31.9 L (34.0-47.0) % MCV 83.1 (81.0-99.0) fl MCH 27.5 (27.0-31.0) pg MCHC 33.2 (33.0-37.0) g/dL RDW 17.8 H (11.5-14.5) % Plt Count 165 (130-400) K/uL MPV 9.4 (7.2-11.7) fl Neut % (Auto) 75.9 H (50.0-75.0) % Lymph % (Auto) 12.8 L (20.0-40.0) % [place] % (Auto) 8.1 (0.0-10.0) % Eos % (Auto) 2.8 (0.0-4.0) % Baso % (Auto) 0.4 (0.0-2.0) % Neut # (Auto) 3.9 (1.8-7.0) K/uL Lymph # (Auto) 0.7 L (1.0-4.3) K/uL [place] # (Auto) 0.4 (0.0-0.8) K/uL Eos # (Auto) 0.1 (0.0-0.7) K/uL Baso # (Auto) 0.0 (0.0-0.2) K/uL pCO2 (35-45) mm/Hg pO2 (80-100) mm/Hg HCO3 (21-28) mmol/L ABG pH (7.35-7.45) ABG Total CO2 (22-28) mmol/L ABG O2 Saturation (95-98) % ABG O2 Content (15-23) ML/dL ABG Base Excess (-2.0-3.0) mmol/L ABG Hemoglobin (11.7-17.4) g/dL ABG Carboxyhemoglobin (0.5-1.5) % POC ABG HHb (Measured) (0.0-5.0) % ABG Methemoglobin (0.0-3.0) % ABG O2 Capacity (16-24) mL/dL Bob Test A-a O2 Difference mm/Hg Hgb O2 Saturation (95.0-98.0) % Vent Mode Mechanical Rate FiO2 % Tidal Volume PEEP Sodium 141 (132-148) mmol/l Potassium 3.9 (3.6-5.0) MMOL/L Chloride 109 H (98-107) mmol/L Carbon Dioxide 26 (22-30) mmol/L Anion Gap 10 (10-20) BUN 24 H (7-17) mg/dl Creatinine 1.2 (0.7-1.2) mg/dl Est GFR ( Amer) 56 Est GFR (Non-Af Amer) 46 POC Glucose (mg/dL) 166 H (65-110) mg/dL Random Glucose 140 H (65-105) mg/dL Calcium 8.0 L (8.4-10.2) mg/dL Total Bilirubin 0.3 (0.2-1.3) mg/dl AST 43 H (14-36) U/L ALT 33 (9-52) U/L Alkaline Phosphatase 80 (38-126) U/L Total Protein 6.9 (6.3-8.2) G/DL Albumin 3.0 L (3.5-5.0) g/dL Globulin 3.9 (2.2-3.9) gm/dL Albumin/Globulin Ratio 0.8 L (1.0-2.1) Absolute Lymphs (Flow) (850-3900) Cells/mcL % CD4 Cells (30-61) Percent Absolute CD4 Count (490-1740) Cells/mcL T-Help/Suppress Ratio (0.86-5.00) Ratio % CD8 Cells (12-42) Percent Absolute CD8 Count (180-1170) Cells/mcL T-Lymph Analys Comment HIV-1 RNA Qnt (RT-PCR) (Not Detected) 07/15/18 07/14/18 07/14/18 Range/Units 04:58 21:08 15:47 WBC (4.8-10.8) K/uL RBC (3.80-5.20) Mil/uL Hgb (12.0-16.0) g/dL Hct (34.0-47.0) % MCV (81.0-99.0) fl MCH (27.0-31.0) pg MCHC (33.0-37.0) g/dL RDW (11.5-14.5) % Plt Count (130-400) K/uL MPV (7.2-11.7) fl Neut % (Auto) (50.0-75.0) % Lymph % (Auto) (20.0-40.0) % [place] % (Auto) (0.0-10.0) % Eos % (Auto) (0.0-4.0) % Baso % (Auto) (0.0-2.0) % Neut # (Auto) (1.8-7.0) K/uL Lymph # (Auto) (1.0-4.3) K/uL [place] # (Auto) (0.0-0.8) K/uL Eos # (Auto) (0.0-0.7) K/uL Baso # (Auto) (0.0-0.2) K/uL pCO2 33 L (35-45) mm/Hg pO2 89 (80-100) mm/Hg HCO3 25.0 (21-28) mmol/L ABG pH 7.46 H (7.35-7.45) ABG Total CO2 24.5 (22-28) mmol/L ABG O2 Saturation 96.8 (95-98) % ABG O2 Content 14.5 L (15-23) ML/dL ABG Base Excess 0.1 (-2.0-3.0) mmol/L ABG Hemoglobin 10.8 L (11.7-17.4) g/dL ABG Carboxyhemoglobin 0.6 (0.5-1.5) % POC ABG HHb (Measured) 3.1 (0.0-5.0) % ABG Methemoglobin 1.2 (0.0-3.0) % ABG O2 Capacity 15.0 L (16-24) mL/dL Bob Test Yes A-a O2 Difference 298.0 mm/Hg Hgb O2 Saturation 95.0 (95.0-98.0) % Vent Mode A/c Mechanical Rate 12 FiO2 60.0 % Tidal Volume 450 PEEP 5 Sodium (132-148) mmol/l Potassium (3.6-5.0) MMOL/L Chloride (98-107) mmol/L Carbon Dioxide (22-30) mmol/L Anion Gap (10-20) BUN (7-17) mg/dl Creatinine (0.7-1.2) mg/dl Est GFR ( Amer) Est GFR (Non-Af Amer) POC Glucose (mg/dL) 155 H 139 H (65-110) mg/dL Random Glucose (65-105) mg/dL Calcium (8.4-10.2) mg/dL Total Bilirubin (0.2-1.3) mg/dl AST (14-36) U/L ALT (9-52) U/L Alkaline Phosphatase (38-126) U/L Total Protein (6.3-8.2) G/DL Albumin (3.5-5.0) g/dL Globulin (2.2-3.9) gm/dL Albumin/Globulin Ratio (1.0-2.1) Absolute Lymphs (Flow) (850-3900) Cells/mcL % CD4 Cells (30-61) Percent Absolute CD4 Count (490-1740) Cells/mcL T-Help/Suppress Ratio (0.86-5.00) Ratio % CD8 Cells (12-42) Percent Absolute CD8 Count (180-1170) Cells/mcL T-Lymph Analys Comment HIV-1 RNA Qnt (RT-PCR) (Not Detected) 07/14/18 07/13/18 07/13/18 Range/Units 11:15 04:29 04:29 WBC (4.8-10.8) K/uL RBC (3.80-5.20) Mil/uL Hgb (12.0-16.0) g/dL Hct (34.0-47.0) % MCV (81.0-99.0) fl MCH (27.0-31.0) pg MCHC (33.0-37.0) g/dL RDW (11.5-14.5) % Plt Count (130-400) K/uL MPV (7.2-11.7) fl Neut % (Auto) (50.0-75.0) % Lymph % (Auto) (20.0-40.0) % [place] % (Auto) (0.0-10.0) % Eos % (Auto) (0.0-4.0) % Baso % (Auto) (0.0-2.0) % Neut # (Auto) (1.8-7.0) K/uL Lymph # (Auto) (1.0-4.3) K/uL [place] # (Auto) (0.0-0.8) K/uL Eos # (Auto) (0.0-0.7) K/uL Baso # (Auto) (0.0-0.2) K/uL pCO2 (35-45) mm/Hg pO2 (80-100) mm/Hg HCO3 (21-28) mmol/L ABG pH (7.35-7.45) ABG Total CO2 (22-28) mmol/L ABG O2 Saturation (95-98) % ABG O2 Content (15-23) ML/dL ABG Base Excess (-2.0-3.0) mmol/L ABG Hemoglobin (11.7-17.4) g/dL ABG Carboxyhemoglobin (0.5-1.5) % POC ABG HHb (Measured) (0.0-5.0) % ABG Methemoglobin (0.0-3.0) % ABG O2 Capacity (16-24) mL/dL Bob Test A-a O2 Difference mm/Hg Hgb O2 Saturation (95.0-98.0) % Vent Mode Mechanical Rate FiO2 % Tidal Volume PEEP Sodium (132-148) mmol/l Potassium (3.6-5.0) MMOL/L Chloride (98-107) mmol/L Carbon Dioxide (22-30) mmol/L Anion Gap (10-20) BUN (7-17) mg/dl Creatinine (0.7-1.2) mg/dl Est GFR ( Amer) Est GFR (Non-Af Amer) POC Glucose (mg/dL) 164 H (65-110) mg/dL Random Glucose (65-105) mg/dL Calcium (8.4-10.2) mg/dL Total Bilirubin (0.2-1.3) mg/dl AST (14-36) U/L ALT (9-52) U/L Alkaline Phosphatase (38-126) U/L Total Protein (6.3-8.2) G/DL Albumin (3.5-5.0) g/dL Globulin (2.2-3.9) gm/dL Albumin/Globulin Ratio (1.0-2.1) Absolute Lymphs (Flow) 793 L (850-3900) Cells/mcL % CD4 Cells 17 L (30-61) Percent Absolute CD4 Count 135 L (490-1740) Cells/mcL T-Help/Suppress Ratio 0.26 L (0.86-5.00) Ratio % CD8 Cells 66 H (12-42) Percent Absolute CD8 Count 520 (180-1170) Cells/mcL T-Lymph Analys Comment See note HIV-1 RNA Qnt (RT-PCR) 1.82 H (Not Detected) Laboratory Results - last 24 hr 07/13/18 07/13/18 07/14/18 04:29 04:29 11:15 WBC RBC Hgb Hct MCV MCH MCHC RDW Plt Count MPV Neut % (Auto) Lymph % (Auto) [place] % (Auto) Eos % (Auto) Baso % (Auto) Neut # (Auto) Lymph # (Auto) [place] # (Auto) Eos # (Auto) Baso # (Auto) pCO2 pO2 HCO3 ABG pH ABG Total CO2 ABG O2 Saturation ABG O2 Content ABG Base Excess ABG Hemoglobin ABG Carboxyhemoglobin POC ABG HHb (Measured) ABG Methemoglobin ABG O2 Capacity Bob Test A-a O2 Difference Hgb O2 Saturation Vent Mode Mechanical Rate FiO2 Tidal Volume PEEP Sodium Potassium Chloride Carbon Dioxide Anion Gap BUN Creatinine Est GFR ( Amer) Est GFR (Non-Af Amer) POC Glucose (mg/dL) 164 H Random Glucose Calcium Total Bilirubin AST ALT Alkaline Phosphatase Total Protein Albumin Globulin Albumin/Globulin Ratio Absolute Lymphs (Flow) 793 L % CD4 Cells 17 L Absolute CD4 Count 135 L T-Help/Suppress Ratio 0.26 L % CD8 Cells 66 H Absolute CD8 Count 520 T-Lymph Analys Comment See note HIV-1 RNA Qnt (RT-PCR) 1.82 H 07/14/18 07/14/18 07/15/18 15:47 21:08 04:58 WBC RBC Hgb Hct MCV MCH MCHC RDW Plt Count MPV Neut % (Auto) Lymph % (Auto) [place] % (Auto) Eos % (Auto) Baso % (Auto) Neut # (Auto) Lymph # (Auto) [place] # (Auto) Eos # (Auto) Baso # (Auto) pCO2 33 L pO2 89 HCO3 25.0 ABG pH 7.46 H ABG Total CO2 24.5 ABG O2 Saturation 96.8 ABG O2 Content 14.5 L ABG Base Excess 0.1 ABG Hemoglobin 10.8 L ABG Carboxyhemoglobin 0.6 POC ABG HHb (Measured) 3.1 ABG Methemoglobin 1.2 ABG O2 Capacity 15.0 L Bob Test Yes A-a O2 Difference 298.0 Hgb O2 Saturation 95.0 Vent Mode A/c Mechanical Rate 12 FiO2 60.0 Tidal Volume 450 PEEP 5 Sodium Potassium Chloride Carbon Dioxide Anion Gap BUN Creatinine Est GFR ( Amer) Est GFR (Non-Af Amer) POC Glucose (mg/dL) 139 H 155 H Random Glucose Calcium Total Bilirubin AST ALT Alkaline Phosphatase Total Protein Albumin Globulin Albumin/Globulin Ratio Absolute Lymphs (Flow) % CD4 Cells Absolute CD4 Count T-Help/Suppress Ratio % CD8 Cells Absolute CD8 Count T-Lymph Analys Comment HIV-1 RNA Qnt (RT-PCR) 07/15/18 07/15/18 07/15/18 05:22 05:30 05:30 WBC 5.2 RBC 3.84 Hgb 10.6 L Hct 31.9 L MCV 83.1 MCH 27.5 MCHC 33.2 RDW 17.8 H Plt Count 165 MPV 9.4 Neut % (Auto) 75.9 H Lymph % (Auto) 12.8 L [place] % (Auto) 8.1 Eos % (Auto) 2.8 Baso % (Auto) 0.4 Neut # (Auto) 3.9 Lymph # (Auto) 0.7 L [place] # (Auto) 0.4 Eos # (Auto) 0.1 Baso # (Auto) 0.0 pCO2 pO2 HCO3 ABG pH ABG Total CO2 ABG O2 Saturation ABG O2 Content ABG Base Excess ABG Hemoglobin ABG Carboxyhemoglobin POC ABG HHb (Measured) ABG Methemoglobin ABG O2 Capacity Bob Test A-a O2 Difference Hgb O2 Saturation Vent Mode Mechanical Rate FiO2 Tidal Volume PEEP Sodium 141 Potassium 3.9 Chloride 109 H Carbon Dioxide 26 Anion Gap 10 BUN 24 H Creatinine 1.2 Est GFR ( Amer) 56 Est GFR (Non-Af Amer) 46 POC Glucose (mg/dL) 166 H Random Glucose 140 H Calcium 8.0 L Total Bilirubin 0.3 AST 43 H ALT 33 Alkaline Phosphatase 80 Total Protein 6.9 Albumin 3.0 L Globulin 3.9 Albumin/Globulin Ratio 0.8 L Absolute Lymphs (Flow) % CD4 Cells Absolute CD4 Count T-Help/Suppress Ratio % CD8 Cells Absolute CD8 Count T-Lymph Analys Comment HIV-1 RNA Qnt (RT-PCR) Radiology Impressions: Radiology Impressions Chest X-Ray 07/14/18 09:00 IMPRESSION: ETT and NGT as above. Persistent but slightly improved bibasilar opacities which may represent some combination of atelectasis and or infiltrate. Residual small right-sided effusion felt be present Fingerstick Blood Sugar Results: 166 Assessment/Plan - Assessment and Plan (Free Text) Assessment: ASSESSMENT and PLAN: 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 --MRI Brain: multifocal late acute/early subacte infarctions in L posterior parietal lobe, late acute/early subacute infarctions in L posterior parietal lobe, increased FLAIR hyperintensity in L cortical sulci (possibly subarachnoid hemorrhage, non-specific proteinaceous hyperintense CSF) --Video EEG monitoring as per Neurology, finished, --Lipitor 20mg daily initiated. --Mild sedation with precedex. --This morning labs are awaited, if renal function improved or stable, CTA could be performed if indicated , as per neuro. >Respiratory failure --Intubated ABG reviewed Vent setting changed to AC Rate 12/m VT 450 cc, PEEP 5, Fio increased again to 60% ----PPI prophylaxis. >Toxic metabolic encephalopathy --Likely secondary to CVA, drug use, seizure --Urine screen positive for opiates and bezodiazepines ----seizures precautions >Feeding --On tube feeding , tolerating at goal, 55/hr --Flushes of 150ml q 6 hrs (once IVF is discontinued) --Probiotic and PPI inittaed >Influenza viral infection --afebrile, WBC wnl --On PO Tamiflu --Contact precautions --ID consult, Dr Velazco. >Community acquired Pneumonia --Afebrile, no white count, lactate 0.9 --ID consult, Dr Velazco. --Calculated CrCl was 48. Renal dose medications. --Levaquin IV , renal dose --1x dose of Vancomycin as per ID, Dr Velazco. >Acute renal injury --Dehydration improving, CPK was only 800, so no Rhabdomyolysis as the cause of JOE --Improving ---continue IVF >Elevated troponins --Cardiology on board, Dr Zahra Guevara. --Probably secondary to rhabdomyolysis. --F/U CPK serum levels >HIV --HAART resumed. --HIV viral load and CD4 count ordered --Screen for oportunistic infections. --Acyclovir and Bactrim for prophylaxis. --ID consult, Dr Velazco. >Chronic hepatitis C --Chronic --HCV vral load ordered --ID consult, Dr Velazco. >Prophylaxis --Enoxapain 30mg daily
--- NOTE | 2018-07-15 11:04 | CON ---
DATE: 07/15/2018 HISTORY OF PRESENT ILLNESS: Ms. Kilgore is a 58-year-old female who was referred for pulmonary evaluation following endotracheal intubation and ventilation for acute respiratory failure. She has a history of HIV infection, is unable to give any history, but as per records, she has HIV infection, hepatitis C, recently renal insufficiency and found to have pneumonia. PHYSICAL EXAMINATION: GENERAL: The patient is intubated and being ventilated, responds to touch but not to follow commands, presently also being monitored with continuous EEG. VITAL SIGNS: Remarkable for blood pressure of 142/88 with a pulse of 87, respiratory rate on the ventilator, O2 sat 99% on present ventilator settings. SKIN: Shows fair turgor. HEENT: Mouth, ET tube in position. LUNGS: Fair aeration with bibasilar rales. HEART: S1, S2. ABDOMEN: Soft. No appreciable organomegaly. EXTREMITIES: No edema or cyanosis. CENTRAL NERVOUS SYSTEM: Could not be evaluated completely because of the patient being on respirator and being sedated. LABORATORY DATA: WBC 5.2, hemoglobin 10.6, platelet count 165,000. Sodium 141, potassium 3.9, BUN 24, creatinine 1.2. ABGs on present ventilator settings, pH 7.46, pCO2 33, pO2 of 89, O2 saturation 96.8. Chest x-ray, ET tube in good position, slight improvement of bibasilar opacities which may be a combination of atelectasis or infiltrate, small residual right pleural effusion. IMPRESSION: Acute respiratory failure, probably secondary to pneumonia. History of human immunodeficiency virus infection, history of hepatitis C. PLAN: Continue ventilator management, IV antibiotics. Incidentally noted the patient diagnosed with flu, will continue therapy as ordered. We will continue to follow with you. Further therapy will depend on clinical findings. Chad Stahl MD
[2018-07-15] MEDS: Midazolam 2 MG/2 ML VIAL IV PRN ×3 (11:05→22:54)
[2018-07-15] MEDS: Lactulose 10 gm/15 ml Syrup PO PRN (12:55)
--- NOTE | 2018-07-15 13:27 | CP.PCM.PN ---
Subjective - Date & Time of Evaluation Date of Evaluation: 07/15/18 Time of Evaluation: 07:00 - Subjective Subjective: remains intubated / sedated in ICU no fever and secretions minimal all cultures thus far negative Objective - Vital Signs/Intake and Output Vital Signs (last 24 hours): Temp Pulse Resp BP Pulse Ox 98.5 F 90 25 H 108/73 97 07/15/18 12:00 07/15/18 12:00 07/15/18 12:00 07/15/18 12:00 07/15/18 12:00 Intake and Output: 07/15/18 07/15/18 06:59 18:59 Intake Total 1900 1066 Output Total 900 600 Balance 1000 466 - Medications Medications: Current Medications Acetaminophen (Tylenol 650mg/20.3ml Solution Ud) 650 mg PO Q4H PRN PRN Reason: Temperature Last Admin: 07/13/18 23:42 Dose: 650 mg Albuterol/Ipratropium (Duoneb 3 Mg/0.5 Mg (3 Ml) Ud) 3 ml INH RQ4 [facility] Last Admin: 07/15/18 10:59 Dose: 3 ml Aspirin (Aspirin) 325 mg PO DAILY FAY Last Admin: 07/15/18 08:18 Dose: 325 mg Atorvastatin Calcium (Lipitor) 20 mg PO HS [facility]AY Last Admin: 07/14/18 21:12 Dose: 20 mg Dextrose (Dextrose 50% Inj) 0 ml IV STAT PRN; Protocol PRN Reason: Hypoglycemia Protocol Dextrose (Glutose 15) 0 gm PO ONCE PRN; Protocol PRN Reason: Hypoglycemia Protocol Dolutegravir Sodium (Tivicay) 50 mg PO DAILY [facility]; Protocol Last Admin: 07/15/18 08:14 Dose: 50 mg Emtricitabine/Tenofovir (Truvada 200 Mg-300 Mg) 1 tab PO DAILY [facility]; Protocol Last Admin: 07/15/18 08:15 Dose: 1 tab Enoxaparin Sodium (Lovenox) 30 mg SC DAILY [facility]; Protocol Last Admin: 07/15/18 08:11 Dose: 30 mg Glucagon (Glucagen Diagnostic Kit) 0 mg IM STAT PRN; Protocol PRN Reason: Hypoglycemia Protocol Levofloxacin/Dextrose (Levaquin 750mg) 750 mg in 150 mls @ 100 mls/hr IVPB Q48H [facility] Last Admin: 07/15/18 08:11 Dose: 100 mls/hr Acyclovir 500 mg/ Sodium (Chloride) 100 mls @ 100 mls/hr IV Q12H [facility]; Protocol Last Admin: 07/15/18 12:55 Dose: 100 mls/hr Dexmedetomidine HCl 400 mcg/ (Sodium Chloride) 100 mls @ 28.74 mls/hr IV .Q3H29M [facility]; Protocol Last Titration: 07/15/18 12:33 Dose: 1.7 mcg/kg/hr, 30.54 mls/hr Insulin Human Regular (Humulin R) 0 units SC ACHS [facility]; Protocol Last Admin: 07/15/18 11:52 Dose: Not Given Lactobacillus Acidophilus (Bacid Acidophilus) 1 cap PO BID [facility] Last Admin: 07/15/18 08:18 Dose: 1 cap Lactulose (Enulose) 10 gm PO DAILY PRN PRN Reason: Constipation Last Admin: 07/15/18 12:55 Dose: 10 gm Midazolam HCl (Versed Inj) 2 mg IV Q6 PRN PRN Reason: Agitation Last Admin: 07/15/18 11:05 Dose: 2 mg Oseltamivir Phosphate (Tamiflu Cap) 75 mg PO BID [facility]; Protocol Last Admin: 07/15/18 08:13 Dose: 75 mg Pantoprazole Sodium (Protonix Susp) 40 mg NG DAILY [facility] Last Admin: 07/15/18 08:12 Dose: 40 mg Trimethoprim/Sulfamethoxazole (Sulfatrim Pediatric Susp) 20 ml PO Q12 [facility]; Protocol Stop: 08/16/18 08:00 - Labs Labs: 07/15/18 05:30 07/15/18 05:30 PT 11.5 Seconds (9.8-13.1) 07/11/18 19:12 INR 1.0 07/11/18 19:12 APTT 28.9 Seconds (25.6-37.1) 07/11/18 19:12 - Constitutional Appears: Non-toxic, Chronically Ill - Head Exam Head Exam: NORMOCEPHALIC - Eye Exam Eye Exam: absent: Scleral icterus - ENT Exam ENT Exam: Mucous Membranes Dry - Neck Exam Neck Exam: absent: Lymphadenopathy - Respiratory Exam Respiratory Exam: Decreased Breath Sounds, Prolonged Expiratory Phase, Rhonchi - Cardiovascular Exam Cardiovascular Exam: REGULAR RHYTHM, +S1, +S2 - GI/Abdominal Exam GI & Abdominal Exam: Distended, Soft. absent: Tenderness - Rectal Exam Rectal Exam: Deferred - Exam Exam: NORMAL INSPECTION - Extremities Exam Extremities Exam: absent: Pedal Edema - Back Exam Back Exam: absent: CVA tenderness (L), CVA tenderness (R) - Neurological Exam Neurological Exam: Altered Neuro motor strength exam: Left Upper Extremity: 2/1, Right Upper Extremity: 4, Left Lower Extremity: 2/1, Right Lower Extremity: 4 - Psychiatric Exam Psychiatric exam: Depressed - Skin Skin Exam: Dry Assessment and Plan (1) Bipolar disorder, current episode mixed, moderate Status: Acute (2) COPD (chronic obstructive pulmonary disease) Status: Acute (3) HIV (human immunodeficiency virus infection) Status: Acute (4) Cerebrovascular accident (CVA) with hemiparesis Status: Acute (5) Cerebrovascular accident (CVA) with right hemiparesis Status: Acute (6) Respiratory failure Status: Acute (7) Influenza A Status: Acute (8) Rhabdomyolysis Status: Acute (9) JOE (acute kidney injury) Status: Acute - Assessment and Plan (Free Text) Assessment: 58 y/o F with PMhx of positive HIV, Substance abuse, Asthma, bipolar disorder, Chronic Hep C was brought by EMS after being found unconscious and lethargic. On admission was found to have acute CVA with Left sided weakness, Influenza A Ag + , Rhabdo/ JOE, resp failure and pneumonia --Head CT: suggestive of left sided ischemia --CXR: Possible pneumonia in lower lobes. ? hilar adenopathy/mass. --MRI Brain: multifocal late acute/early subacte infarctions in L posterior parietal lobe, late acute/early subacute infarctions in L posterior parietal lobe, increased FLAIR hyperintensity in L cortical sulci (possibly subarachnoid hemorrhage, non-specific proteinaceous hyperintense CSF) Plan: CD4 = 147 of HAART rx as out pt ( noncompliant) Now on HAART with Truvada/ Tivacay Blood cultures negative thus far as well as urine and sputum Renal function improving remains vent dependant and sedated Cardio on board - consider HERMILA when feasible to r/o Vegetation, clot , other IV Vanco/ Levaquin , Bactrim, acyclovir in progress Neuro following
--- NOTE | 2018-07-15 13:39 | RAD ---
Date of service: 07/15/2018 HISTORY: Intubated COMPARISON: Comparison chest dated 07/14/2018. FINDINGS: In situ ETT, tip of which lies approximately 4.8 cm above kelsey. NGT is present the tip of which overlies left parasagittal upper abdomen. LUNGS: Persistent lower lobe infiltrates with suspected right and questionable tiny left effusions. PLEURA: As above. No pneumothorax apparent. CARDIOVASCULAR: No aortic atherosclerotic calcification present. Normal cardiac size. OSSEOUS STRUCTURES: No significant abnormalities. VISUALIZED UPPER ABDOMEN: Normal. OTHER FINDINGS: None. IMPRESSION: ETT and NGT as above. Persistent lower lobe infiltrates with suspected right and questionable tiny left effusions.
--- NOTE | 2018-07-15 13:39 | CP.PCM.PN ---
Subjective - Date & Time of Evaluation Date of Evaluation: 07/15/18 Time of Evaluation: 09:55 - Subjective Subjective: Patient seen and examined at bedside in ICU. Patient currently intubated with MV PRVC RR 12, PEEP 5, FiO2 50%, 450mL TV. Patient opening her eyes responding to verbal commands able to move little on left side only. Afebrile. Jimenez cath in place, NG tube in place draining yellow urine, VEEG bein performed, with NO events overnight. Objective - Vital Signs/Intake and Output Vital Signs (last 24 hours): Temp Pulse Resp BP Pulse Ox 98.5 F 90 25 H 108/73 97 07/15/18 12:00 07/15/18 12:00 07/15/18 12:00 07/15/18 12:00 07/15/18 12:00 Intake and Output: 07/15/18 07/15/18 06:59 18:59 Intake Total 1900 1066 Output Total 900 600 Balance 1000 466 - Medications Medications: Current Medications Acetaminophen (Tylenol 650mg/20.3ml Solution Ud) 650 mg PO Q4H PRN PRN Reason: Temperature Last Admin: 07/13/18 23:42 Dose: 650 mg Albuterol/Ipratropium (Duoneb 3 Mg/0.5 Mg (3 Ml) Ud) 3 ml INH RQ4 [facility] Last Admin: 07/15/18 10:59 Dose: 3 ml Aspirin (Aspirin) 325 mg PO DAILY [facility] Last Admin: 07/15/18 08:18 Dose: 325 mg Atorvastatin Calcium (Lipitor) 20 mg PO HS [facility] Last Admin: 07/14/18 21:12 Dose: 20 mg Dextrose (Dextrose 50% Inj) 0 ml IV STAT PRN; Protocol PRN Reason: Hypoglycemia Protocol Dextrose (Glutose 15) 0 gm PO ONCE PRN; Protocol PRN Reason: Hypoglycemia Protocol Dolutegravir Sodium (Tivicay) 50 mg PO DAILY [facility]; Protocol Last Admin: 07/15/18 08:14 Dose: 50 mg Emtricitabine/Tenofovir (Truvada 200 Mg-300 Mg) 1 tab PO DAILY [facility]; Protocol Last Admin: 07/15/18 08:15 Dose: 1 tab Enoxaparin Sodium (Lovenox) 30 mg SC DAILY [facility]; Protocol Last Admin: 07/15/18 08:11 Dose: 30 mg Glucagon (Glucagen Diagnostic Kit) 0 mg IM STAT PRN; Protocol PRN Reason: Hypoglycemia Protocol Levofloxacin/Dextrose (Levaquin 750mg) 750 mg in 150 mls @ 100 mls/hr IVPB Q48H [facility] Last Admin: 07/15/18 08:11 Dose: 100 mls/hr Acyclovir 500 mg/ Sodium (Chloride) 100 mls @ 100 mls/hr IV Q12H [facility]; Protocol Last Admin: 07/15/18 12:55 Dose: 100 mls/hr Dexmedetomidine HCl 400 mcg/ (Sodium Chloride) 100 mls @ 28.74 mls/hr IV .Q3H29M [facility]; Protocol Last Titration: 07/15/18 12:33 Dose: 1.7 mcg/kg/hr, 30.54 mls/hr Vancomycin HCl 1,000 mg/ (Sodium Chloride) 250 mls @ 250 mls/hr IVPB Q24H [facility]; Protocol Insulin Human Regular (Humulin R) 0 units SC ACHS [facility]; Protocol Last Admin: 07/15/18 11:52 Dose: Not Given Lactobacillus Acidophilus (Bacid Acidophilus) 1 cap PO BID [facility] Last Admin: 07/15/18 08:18 Dose: 1 cap Lactulose (Enulose) 10 gm PO DAILY PRN PRN Reason: Constipation Last Admin: 07/15/18 12:55 Dose: 10 gm Midazolam HCl (Versed Inj) 2 mg IV Q6 PRN PRN Reason: Agitation Last Admin: 07/15/18 11:05 Dose: 2 mg Oseltamivir Phosphate (Tamiflu Cap) 75 mg PO BID [facility]; Protocol Last Admin: 07/15/18 08:13 Dose: 75 mg Pantoprazole Sodium (Protonix Susp) 40 mg NG DAILY [facility] Last Admin: 07/15/18 08:12 Dose: 40 mg Trimethoprim/Sulfamethoxazole (Sulfatrim Pediatric Susp) 20 ml PO Q12 [facility]; Protocol Stop: 08/16/18 08:00 - Labs Labs: 07/15/18 05:30 07/15/18 05:30 PT 11.5 Seconds (9.8-13.1) 07/11/18 19:12 INR 1.0 07/11/18 19:12 APTT 28.9 Seconds (25.6-37.1) 07/11/18 19:12 - Constitutional Appears: Chronically Ill - Head Exam Head Exam: ATRAUMATIC - Eye Exam Eye Exam: Normal appearance - Respiratory Exam Respiratory Exam: Rales. absent: Rhonchi, Wheezes, Respiratory Distress - Cardiovascular Exam Cardiovascular Exam: REGULAR RHYTHM, +S1, +S2 - GI/Abdominal Exam GI & Abdominal Exam: Distended, Soft, Hypoactive Bowel Sounds. absent: Tenderness - Extremities Exam Extremities Exam: absent: Pedal Edema - Neurological Exam Neurological Exam: Awake. absent: Alert, Oriented x3 - Skin Skin Exam: Dry, Intact, Normal Color, Warm Assessment and Plan - Assessment and Plan (Free Text) Assessment: 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 -MRI Brain: multifocal late acute/early subacte infarctions in L posterior parietal lobe, late acute/early subacute infarctions in L posterior parietal lobe, increased FLAIR hyperintensity in L cortical sulci (possibly subarachnoid hemorrhage, non-specific proteinaceous hyperintense CSF) -Video EEG monitoring as per Neurology, finished, -Lipitor 20mg daily initiated. -Mild sedation with precedex. Plan: Acute Respiratory failure -Likely secondary to Pneumonia -Intubated -ABG reviewed -Vent setting changed to AC Rate 12/m VT 450 cc, PEEP 5, Fio 60% -PPI prophylaxis. Toxic metabolic encephalopathy -Likely secondary to CVA, drug use, seizure -Urine screen positive for opiates and bezodiazepines -seizures precautions Feeding -On tube feeding , tolerating at goal, 55/hr -Flushes of 150ml q 6 hrs (once IVF is discontinued) -Probiotic and PPI initiated Influenza viral infection -afebrile, WBC wnl -On PO Tamiflu -Contact precautions -ID consult, Dr Velazco. Community acquired Pneumonia -Afebrile, no white count, lactate 0.9 -ID consult, Dr Velazco. consider HERMILA when feasible to r/o Vegetation, clot , other -Calculated CrCl was 48. Renal dose medications. -Levaquin IV, renal dose -1x dose of Vancomycin as per ID,Dr Velazco. Acute renal injury -Dehydration improving, CPK was only 800, so no Rhabdomyolysis as the cause of JOE -Improving -continue IVF HIV -HAART resumed. Tivicay and Truvada -CD4 = 135 -Screen for oportunistic infections. -Acyclovir and Bactrim for prophylaxis. -ID consult, Dr Velazco. Will follow recs Elevated troponins -Cardiology on board, Dr Zahra Guevara. -Probably secondary to rhabdomyolysis. -F/U CPK serum levels Chronic hepatitis C -Chronic -HCV vral load ordered -ID consult, Dr Velazco. Prophylaxis -Lovenox 30mg daily
[2018-07-15] MEDS: Tmp-Smz 200-40mg/5 ml Oral Sus(120 ml) PO SCH (20:30)
[2018-07-16] MEDS: Acyclovir 500 MG in Sodium Chloride 0.9% 100 ML IV SCH ×2 (01:50→12:36)
[2018-07-16] MEDS: Dexmedetomidine Hydrochloride 400 MCG in Sodium Chloride 0.9% 96 ML IV SCH ×3 (01:55→08:50)
[2018-07-16] MEDS: Albuterol-Ipratrop 3 mg / 0.5 (3 ml) UD INH SCH ×5 (03:01→19:13)
[2018-07-16] MEDS ORDERED: Midazolam 2 MG/2 ML VIAL IV ONE (04:12)
[2018-07-16 04:50] LABS: ABG ALLEN TEST YES
[2018-07-16 04:52] LABS: BASO % 0.2 % (0.0-2.0); EOS # 0.1 K/uL (0.0-0.7); HEMOGLOBIN 10.8 g/dL (12.0-16.0); LYMPH # 0.6 K/uL (1.0-4.3); LYMPH % 9.8 % (20.0-40.0); MEAN CELL VOLUME 83.5 fl (81.0-99.0); MEAN CORPUSCULAR HEMOGLOBIN 27.1 pg (27.0-31.0); MEAN CORPUSCULAR HGB CONC 32.4 g/dL (33.0-37.0); MONO # 0.5 K/uL (0.0-0.8); MONO % 8.3 % (0.0-10.0); NEUT # 4.6 K/uL (1.8-7.0); NEUT % 80.7 % (50.0-75.0); PLATELET COUNT 173 K/uL (130-400); RBC 3.99 Mil/uL (3.80-5.20); RED CELL DISTRIBUTION WIDTH 17.5 % (11.5-14.5); WHITE BLOOD COUNT 5.7 K/uL (4.8-10.8)
[2018-07-16 05:04] LABS: ALB/GLOB RATIO 0.8 (1.0-2.1); ALBUMIN 3.1 g/dL (3.5-5.0); CALCIUM 8.4 mg/dL (8.4-10.2)
[2018-07-16] MEDS: Insulin Regular 100 units/ml SC SCH ×4 (07:55→22:00)
[2018-07-16] MEDS: Lactobacillus Acidophilus 500 MU Cap PO SCH ×2 (08:03→17:44)
[2018-07-16] MEDS: Enoxaparin 30 mg Syringe SC SCH (08:04)
[2018-07-16] MEDS: Pantoprazole 40 mg Susp UD NG SCH (08:04)
[2018-07-16] MEDS: Tmp-Smz 200-40mg/5 ml Oral Sus(120 ml) PO SCH ×2 (08:05→21:00)
[2018-07-16] MEDS: Emtricitabine-Tenofovir 200 mg-300 mg Tab PO SCH (08:07)
[2018-07-16 08:21] LABS: LYMPHOCYTE 10 % (20-50); MONOCYTE 6 % (0-10); NEUTROPHIL 84 % (42-75); TOTAL CELLS COUNTED 100
[2018-07-16 08:22] LABS: PLATELET ESTIMATE NORMAL (NORMAL)
[2018-07-16 08:23] LABS: ANISOCYTOSIS SLIGHT; OVALOCYTES SLIGHT
[2018-07-16] MEDS: Midazolam 2 MG/2 ML VIAL IV PRN (10:11)
--- NOTE | 2018-07-16 10:18 | CP.PCM.PN ---
Subjective - Date & Time of Evaluation Date of Evaluation: 07/16/18 Time of Evaluation: 10:18 - Subjective Subjective: Neurology Follow-Up Note: Mrs. Kilgore was evaluated this morning in the ICU. She remains intubated, on mechanical vent; no Precedex infusing during this time. She is able to follows simple commands. ROS is limited due to pt being intubated. Chart reviewed in detail; discussed with primary nurse. Objective - Vital Signs/Intake and Output Vital Signs (last 24 hours): Temp Pulse Resp BP Pulse Ox 95.4 F L 87 28 H 123/75 97 07/16/18 08:00 07/16/18 08:00 07/16/18 08:00 07/16/18 08:48 07/16/18 08:00 Intake and Output: 07/16/18 07/16/18 06:59 18:59 Intake Total 693 96 Output Total 700 Balance -7 96 - Medications Medications: Current Medications Acetaminophen (Tylenol 650mg/20.3ml Solution Ud) 650 mg PO Q4H PRN PRN Reason: Temperature Last Admin: 07/13/18 23:42 Dose: 650 mg Albuterol/Ipratropium (Duoneb 3 Mg/0.5 Mg (3 Ml) Ud) 3 ml INH RQ4 [facility] Last Admin: 07/16/18 08:25 Dose: 3 ml Aspirin (Aspirin) 325 mg PO DAILY [facility] Last Admin: 07/16/18 08:03 Dose: 325 mg Atorvastatin Calcium (Lipitor) 20 mg PO HS [facility] Last Admin: 07/15/18 21:12 Dose: 20 mg Dextrose (Dextrose 50% Inj) 0 ml IV STAT PRN; Protocol PRN Reason: Hypoglycemia Protocol Dextrose (Glutose 15) 0 gm PO ONCE PRN; Protocol PRN Reason: Hypoglycemia Protocol Dolutegravir Sodium (Tivicay) 50 mg PO DAILY [facility]; Protocol Last Admin: 07/16/18 08:06 Dose: 50 mg Emtricitabine/Tenofovir (Truvada 200 Mg-300 Mg) 1 tab PO DAILY [facility]; Protocol Last Admin: 07/16/18 08:07 Dose: 1 tab Enoxaparin Sodium (Lovenox) 30 mg SC DAILY [facility]; Protocol Last Admin: 07/16/18 08:04 Dose: 30 mg Furosemide (Lasix) 40 mg IVP BID [facility] Stop: 07/17/18 17:01 Last Admin: 07/16/18 08:48 Dose: 40 mg Glucagon (Glucagen Diagnostic Kit) 0 mg IM STAT PRN; Protocol PRN Reason: Hypoglycemia Protocol Levofloxacin/Dextrose (Levaquin 750mg) 750 mg in 150 mls @ 100 mls/hr IVPB Q48H [facility] Last Admin: 07/15/18 08:11 Dose: 100 mls/hr Acyclovir 500 mg/ Sodium (Chloride) 100 mls @ 100 mls/hr IV Q12H [facility]; Protocol Last Admin: 07/16/18 01:50 Dose: 100 mls/hr Dexmedetomidine HCl 400 mcg/ (Sodium Chloride) 100 mls @ 28.74 mls/hr IV .Q3H29M [facility]; Protocol Last Admin: 07/16/18 08:50 Dose: 1.7 mcg/kg/hr, 30.54 mls/hr Vancomycin HCl 1 gm/ Sodium (Chloride) 250 mls @ 166.667 mls/hr IVPB Q24H [facility]; Protocol Last Admin: 07/15/18 15:00 Dose: 166.667 mls/hr Insulin Human Regular (Humulin R) 0 units SC ACHS [facility]; Protocol Last Admin: 07/16/18 07:55 Dose: Not Given Lactobacillus Acidophilus (Bacid Acidophilus) 1 cap PO BID [facility] Last Admin: 07/16/18 08:03 Dose: 1 cap Lactulose (Enulose) 10 gm PO DAILY PRN PRN Reason: Constipation Last Admin: 07/15/18 12:55 Dose: 10 gm Midazolam HCl (Versed Inj) 2 mg IV Q6 PRN PRN Reason: Agitation Last Admin: 07/16/18 10:11 Dose: 2 mg Oseltamivir Phosphate (Tamiflu Cap) 75 mg PO BID [facility]; Protocol Last Admin: 07/16/18 08:06 Dose: 75 mg Pantoprazole Sodium (Protonix Susp) 40 mg NG DAILY [facility] Last Admin: 07/16/18 08:04 Dose: 40 mg Trimethoprim/Sulfamethoxazole (Sulfatrim Pediatric Susp) 20 ml PO Q12 [facility]; Protocol Stop: 08/16/18 08:00 Last Admin: 07/16/18 08:05 Dose: 20 ml - Labs Labs: 07/16/18 04:41 07/16/18 04:41 PT 11.5 Seconds (9.8-13.1) 07/11/18 19:12 INR 1.0 07/11/18 19:12 APTT 28.9 Seconds (25.6-37.1) 07/11/18 19:12 - Constitutional Appears: Other (intubated; awake; periods of agitation) - Head Exam Head Exam: ATRAUMATIC, NORMAL INSPECTION, NORMOCEPHALIC - Eye Exam Eye Exam: EOMI, Normal appearance, PERRL. absent: Nystagmus Pupil Exam: NORMAL ACCOMODATION - ENT Exam ENT Exam: Mucous Membranes Moist - Neck Exam Neck Exam: Normal Inspection - Respiratory Exam Respiratory Exam: absent: NORMAL BREATHING PATTERN (intubated) - Cardiovascular Exam Cardiovascular Exam: REGULAR RHYTHM - GI/Abdominal Exam GI & Abdominal Exam: Distended Additional comments: feedings via OGT being held - Extremities Exam Extremities Exam: absent: Calf Tenderness, Full ROM, Pedal Edema Additional comments: RUE and RLE flaccid LUE and LLE strength 5/5, FROM - Neurological Exam Neurological Exam: Awake, Reflexes Normal. absent: Oriented x3 Neuro motor strength exam: Left Upper Extremity: 5 (senior recruiter 5/5), Right Upper Extremity: 0, Left Lower Extremity: 5 (senior recruiter 5/5), Right Lower Extremity: 0 Additional comments: intubated, off sedation awake; eyes open; follows person in room with eyes able to follow simple commands strength to left side extremities 5/5; senior recruiter 5/5, dorsiflexion 5/5; right sided extremities flaccid, senior recruiter 0/5. sensation to left side intact reflexes brisk - Psychiatric Exam Additional comments: calm; has periods of agitation - Skin Skin Exam: Diaphoretic, Normal Color Assessment and Plan (1) CVA (cerebral vascular accident) Assessment & Plan: Imaging reviewed: -MRI Brain (07/11/18): 1. Multifocal late acute/early subacute infarctions in the left posterior parietal lobe. 2. Small foci of late acute/early subacute infarctions in bilateral parietal subcortical white matter. 3. Increased FLAIR hyperintensity in the left parietal cortical sulci is nonspecific, the differential considerations include subarachnoid hemorrhage, oxygen/anesthesia induced hyperintensity or nonspecific/proteinaceous hyperintense CSF. Clinical follow-up is advised and if clinically indicated, correlation with CT scan may be performed to exclude subarachnoid hemorrhage. -CT Head (07/11/18): Moderate nonspecific white matter changes. More prominent hypodense focus noted in the left centrum semiovale region. MRI with diffusion imaging suggested for further evaluation if indicated. Increased attenuation of the bilateral maxillary sinus contents may indicate proteinaceous material or fungal colonization. Mucosal thickening of the ethmoid air cells. -ECHO (07/12/18): EF 55-60% Ms. Kilgore is a 58 y/o female initially admitted to the ICU after being found unresponsive 2/2 possible drug overdose vs stroke vs seizure. She is currently intubated off sedation. Unknown events preceding pt being found unresponsive however pt has an extensive drug history. MRI Brain shows + infarct. -CTA head and neck to be done nikolay; pending renal function improvement. -VEEG read by Dr. Dennis -Continue ASA and Statin. -PT, OT once pt can tolerate; ST will re-eval pt once extubated. -Continue to treat and manage other medical issues--has pneumonia, flu -Continue ICU management -Notify neuro team of any changes in pt's condition. Case discussed with Dr. Dennis Status: Acute
--- NOTE | 2018-07-16 11:04 | RAD ---
Date of service: 07/16/2018 HISTORY: Intubated COMPARISON: No prior. FINDINGS: In situ ETT, tip of which lies approximately 5.1 cm above kelsey.. NGT is present tip of which is coiled in the region the fundus of the stomach. LUNGS: Persistent but improved bibasilar atelectasis and/or infiltrates. Small bilateral effusions right larger than left felt be present.. PLEURA: No significant pleural effusion identified, no pneumothorax apparent. CARDIOVASCULAR: No aortic atherosclerotic calcification present. Normal cardiac size. No pulmonary vascular congestion. OSSEOUS STRUCTURES: No significant abnormalities. VISUALIZED UPPER ABDOMEN: Normal. OTHER FINDINGS: None. IMPRESSION: ETT and NGT as above. Persistent but improved bibasilar atelectasis and/or infiltrates. Small bilateral effusions right larger than left felt be present..
--- NOTE | 2018-07-16 11:24 | CP.PCM.PN ---
Subjective - Date & Time of Evaluation Date of Evaluation: 07/16/18 Time of Evaluation: 07:00 - Subjective Subjective: sedated on vent in ICU afebrile agitated off sedation + weakness left > right Objective - Vital Signs/Intake and Output Vital Signs (last 24 hours): Temp Pulse Resp BP Pulse Ox 95.4 F L 98 H 35 H 148/98 H 96 07/16/18 08:00 07/16/18 10:00 07/16/18 10:00 07/16/18 10:00 07/16/18 10:00 Intake and Output: 07/16/18 07/16/18 06:59 18:59 Intake Total 693 249 Output Total 700 1000 Balance -7 -981 - Medications Medications: Current Medications Acetaminophen (Tylenol 650mg/20.3ml Solution Ud) 650 mg PO Q4H PRN PRN Reason: Temperature Last Admin: 07/13/18 23:42 Dose: 650 mg Albuterol/Ipratropium (Duoneb 3 Mg/0.5 Mg (3 Ml) Ud) 3 ml INH RQ4 [facility] Last Admin: 07/16/18 08:25 Dose: 3 ml Aspirin (Aspirin) 325 mg PO DAILY [facility] Last Admin: 07/16/18 08:03 Dose: 325 mg Atorvastatin Calcium (Lipitor) 20 mg PO HS [facility] Last Admin: 07/15/18 21:12 Dose: 20 mg Dextrose (Dextrose 50% Inj) 0 ml IV STAT PRN; Protocol PRN Reason: Hypoglycemia Protocol Dextrose (Glutose 15) 0 gm PO ONCE PRN; Protocol PRN Reason: Hypoglycemia Protocol Dolutegravir Sodium (Tivicay) 50 mg PO DAILY [facility]; Protocol Last Admin: 07/16/18 08:06 Dose: 50 mg Emtricitabine/Tenofovir (Truvada 200 Mg-300 Mg) 1 tab PO DAILY [facility]; Protocol Last Admin: 07/16/18 08:07 Dose: 1 tab Enoxaparin Sodium (Lovenox) 30 mg SC DAILY [facility]; Protocol Last Admin: 07/16/18 08:04 Dose: 30 mg Furosemide (Lasix) 40 mg IVP BID [facility] Stop: 07/17/18 17:01 Last Admin: 07/16/18 08:48 Dose: 40 mg Glucagon (Glucagen Diagnostic Kit) 0 mg IM STAT PRN; Protocol PRN Reason: Hypoglycemia Protocol Levofloxacin/Dextrose (Levaquin 750mg) 750 mg in 150 mls @ 100 mls/hr IVPB Q48H [facility] Last Admin: 07/15/18 08:11 Dose: 100 mls/hr Acyclovir 500 mg/ Sodium (Chloride) 100 mls @ 100 mls/hr IV Q12H [facility]; Protocol Last Admin: 07/16/18 01:50 Dose: 100 mls/hr Dexmedetomidine HCl 400 mcg/ (Sodium Chloride) 100 mls @ 28.74 mls/hr IV .Q3H29M [facility]; Protocol Last Admin: 07/16/18 08:50 Dose: 1.7 mcg/kg/hr, 30.54 mls/hr Vancomycin HCl 1 gm/ Sodium (Chloride) 250 mls @ 166.667 mls/hr IVPB Q24H [facility]; Protocol Last Admin: 07/15/18 15:00 Dose: 166.667 mls/hr Insulin Human Regular (Humulin R) 0 units SC ACHS [facility]; Protocol Last Admin: 07/16/18 07:55 Dose: Not Given Lactobacillus Acidophilus (Bacid Acidophilus) 1 cap PO BID [facility] Last Admin: 07/16/18 08:03 Dose: 1 cap Lactulose (Enulose) 10 gm PO DAILY PRN PRN Reason: Constipation Last Admin: 07/15/18 12:55 Dose: 10 gm Midazolam HCl (Versed Inj) 2 mg IV Q6 PRN PRN Reason: Agitation Last Admin: 07/16/18 10:11 Dose: 2 mg Oseltamivir Phosphate (Tamiflu Cap) 75 mg PO BID [facility]; Protocol Last Admin: 07/16/18 08:06 Dose: 75 mg Pantoprazole Sodium (Protonix Susp) 40 mg NG DAILY [facility] Last Admin: 07/16/18 08:04 Dose: 40 mg Trimethoprim/Sulfamethoxazole (Sulfatrim Pediatric Susp) 20 ml PO Q12 [facility]; Protocol Stop: 08/16/18 08:00 Last Admin: 07/16/18 08:05 Dose: 20 ml - Labs Labs: 07/16/18 04:41 07/16/18 04:41 PT 11.5 Seconds (9.8-13.1) 07/11/18 19:12 INR 1.0 07/11/18 19:12 APTT 28.9 Seconds (25.6-37.1) 07/11/18 19:12 - Constitutional Appears: No Acute Distress, Confused, Chronically Ill - Head Exam Head Exam: ATRAUMATIC, NORMAL INSPECTION, NORMOCEPHALIC - Eye Exam Eye Exam: PERRL. absent: Scleral icterus - ENT Exam ENT Exam: Mucous Membranes Dry, Normal External Ear Exam - Neck Exam Neck Exam: absent: Lymphadenopathy - Respiratory Exam Respiratory Exam: Decreased Breath Sounds, Rhonchi - Cardiovascular Exam Cardiovascular Exam: REGULAR RHYTHM, +S1, +S2 - GI/Abdominal Exam GI & Abdominal Exam: Distended, Soft. absent: Tenderness - Rectal Exam Rectal Exam: Deferred - Exam Exam: NORMAL INSPECTION - Extremities Exam Extremities Exam: absent: Pedal Edema - Back Exam Back Exam: absent: CVA tenderness (L), CVA tenderness (R) - Neurological Exam Neurological Exam: Altered - Psychiatric Exam Psychiatric exam: Depressed - Skin Skin Exam: Dry Assessment and Plan (1) Bipolar disorder, current episode mixed, moderate Status: Acute (2) COPD (chronic obstructive pulmonary disease) Status: Acute (3) HIV (human immunodeficiency virus infection) Status: Acute (4) Cerebrovascular accident (CVA) with hemiparesis Status: Acute (5) Cerebrovascular accident (CVA) with right hemiparesis Status: Acute (6) Respiratory failure Status: Acute (7) Influenza A Status: Acute (8) Rhabdomyolysis Status: Acute (9) JOE (acute kidney injury) Status: Acute - Assessment and Plan (Free Text) Assessment: 58 y/o F with PMhx of positive HIV, Substance abuse, Asthma, bipolar disorder, Chronic Hep C was brought by EMS after being found unconscious and lethargic. On admission was found to have acute CVA with Left sided weakness, Influenza A Ag + , Rhabdo/ JOE, resp failure and pneumonia --Head CT: suggestive of left sided ischemia --CXR: Possible pneumonia in lower lobes. ? hilar adenopathy/mass. --MRI Brain: multifocal late acute/early subacte infarctions in L posterior parietal lobe, late acute/early subacute infarctions in L posterior parietal lobe, increased FLAIR hyperintensity in L cortical sulci (possibly subarachnoid hemorrhage, non-specific proteinaceous hyperintense CSF) Plan: CD4 = 147 of HAART rx as out pt ( noncompliant) Now on HAART with Truvada/ Tivacay Blood cultures negative thus far as well as urine and sputum Renal function improving remains vent dependant and sedated Cardio on board - consider HERMILA when feasible to r/o Vegetation, clot , other IV Vanco/ Levaquin , Bactrim, acyclovir in progress Neuro following
--- NOTE | 2018-07-16 11:26 | CP.PCM.PN ---
<Bradly Bai - Last Filed: 07/16/18 13:50> Subjective - Date & Time of Evaluation Date of Evaluation: 07/16/18 Time of Evaluation: 09:00 - Subjective Subjective: Patient seen and examined at bedside in AM. Patient's tube feeding was stopped after an episode of bilious vomiting yesterday. Patient continues to be intubated on PRVC AC mode 12/450/5/60 %. Patient is afebrile, awake, alert and able to follow simple command including moving left extremity however still unable to dent remover right side. Patient continues to have abdominal distension. NGT in place. Jimenez cath in place. Objective - Vital Signs/Intake and Output Vital Signs (last 24 hours): Temp Pulse Resp BP Pulse Ox 95.4 F L 98 H 35 H 148/98 H 96 07/16/18 08:00 07/16/18 10:00 07/16/18 10:00 07/16/18 10:00 07/16/18 10:00 Intake and Output: 07/16/18 07/16/18 06:59 18:59 Intake Total 693 249 Output Total 700 1000 Balance -7 -751 - Medications Medications: Current Medications Acetaminophen (Tylenol 650mg/20.3ml Solution Ud) 650 mg PO Q4H PRN PRN Reason: Temperature Last Admin: 07/13/18 23:42 Dose: 650 mg Albuterol/Ipratropium (Duoneb 3 Mg/0.5 Mg (3 Ml) Ud) 3 ml INH RQ4 [facility] Last Admin: 07/16/18 08:25 Dose: 3 ml Aspirin (Aspirin) 325 mg PO DAILY [facility] Last Admin: 07/16/18 08:03 Dose: 325 mg Atorvastatin Calcium (Lipitor) 20 mg PO HS [facility] Last Admin: 07/15/18 21:12 Dose: 20 mg Dextrose (Dextrose 50% Inj) 0 ml IV STAT PRN; Protocol PRN Reason: Hypoglycemia Protocol Dextrose (Glutose 15) 0 gm PO ONCE PRN; Protocol PRN Reason: Hypoglycemia Protocol Dolutegravir Sodium (Tivicay) 50 mg PO DAILY [facility]; Protocol Last Admin: 07/16/18 08:06 Dose: 50 mg Emtricitabine/Tenofovir (Truvada 200 Mg-300 Mg) 1 tab PO DAILY [facility]; Protocol Last Admin: 07/16/18 08:07 Dose: 1 tab Enoxaparin Sodium (Lovenox) 30 mg SC DAILY [facility]; Protocol Last Admin: 07/16/18 08:04 Dose: 30 mg Furosemide (Lasix) 40 mg IVP BID [facility] Stop: 07/17/18 17:01 Last Admin: 07/16/18 08:48 Dose: 40 mg Glucagon (Glucagen Diagnostic Kit) 0 mg IM STAT PRN; Protocol PRN Reason: Hypoglycemia Protocol Levofloxacin/Dextrose (Levaquin 750mg) 750 mg in 150 mls @ 100 mls/hr IVPB Q48H [facility] Last Admin: 07/15/18 08:11 Dose: 100 mls/hr Acyclovir 500 mg/ Sodium (Chloride) 100 mls @ 100 mls/hr IV Q12H [facility]; Protocol Last Admin: 07/16/18 01:50 Dose: 100 mls/hr Dexmedetomidine HCl 400 mcg/ (Sodium Chloride) 100 mls @ 28.74 mls/hr IV .Q3H29M [facility]; Protocol Last Admin: 07/16/18 08:50 Dose: 1.7 mcg/kg/hr, 30.54 mls/hr Vancomycin HCl 1 gm/ Sodium (Chloride) 250 mls @ 166.667 mls/hr IVPB Q24H [facility]; Protocol Last Admin: 07/15/18 15:00 Dose: 166.667 mls/hr Insulin Human Regular (Humulin R) 0 units SC ACHS [facility]; Protocol Last Admin: 07/16/18 07:55 Dose: Not Given Lactobacillus Acidophilus (Bacid Acidophilus) 1 cap PO BID [facility] Last Admin: 07/16/18 08:03 Dose: 1 cap Lactulose (Enulose) 10 gm PO DAILY PRN PRN Reason: Constipation Last Admin: 07/15/18 12:55 Dose: 10 gm Midazolam HCl (Versed Inj) 2 mg IV Q6 PRN PRN Reason: Agitation Last Admin: 07/16/18 10:11 Dose: 2 mg Oseltamivir Phosphate (Tamiflu Cap) 75 mg PO BID [facility]; Protocol Last Admin: 07/16/18 08:06 Dose: 75 mg Pantoprazole Sodium (Protonix Susp) 40 mg NG DAILY [facility] Last Admin: 07/16/18 08:04 Dose: 40 mg Trimethoprim/Sulfamethoxazole (Sulfatrim Pediatric Susp) 20 ml PO Q12 [facility]; Protocol Stop: 08/16/18 08:00 Last Admin: 07/16/18 08:05 Dose: 20 ml - Labs Labs: 07/16/18 04:41 07/16/18 04:41 PT 11.5 Seconds (9.8-13.1) 07/11/18 19:12 INR 1.0 07/11/18 19:12 APTT 28.9 Seconds (25.6-37.1) 07/11/18 19:12 - Constitutional Appears: Chronically Ill - Head Exam Head Exam: ATRAUMATIC - ENT Exam ENT Exam: Mucous Membranes Moist - Neck Exam Neck Exam: Full ROM - Respiratory Exam Respiratory Exam: Rhonchi. absent: Decreased Breath Sounds, Wheezes - Cardiovascular Exam Cardiovascular Exam: +S1, +S2. absent: Murmur - GI/Abdominal Exam GI & Abdominal Exam: Distended, Firm, Hypoactive Bowel Sounds - Extremities Exam Extremities Exam: absent: Pedal Edema - Neurological Exam Neurological Exam: Alert, Awake Neuro motor strength exam: Left Upper Extremity: 3, Right Upper Extremity: 0, Left Lower Extremity: 4, Right Lower Extremity: 0 - Skin Skin Exam: Dry, Intact, Normal Color, Warm Assessment and Plan - Assessment and Plan (Free Text) Assessment: 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 -MRI Brain: multifocal late acute/early subacte infarctions in L posterior parietal lobe, late acute/early subacute infarctions in L posterior parietal lobe, increased FLAIR hyperintensity in L cortical sulci (possibly subarachnoid hemorrhage, non-specific proteinaceous hyperintense CSF) -Video EEG monitoring as per Neurology, finished, -Mild sedation with precedex. Started on Lasix 40 BID today Plan: Acute Respiratory failure -Likely secondary to Pneumonia -Intubated, -Vent setting AC Rate 12/m VT 450 cc, PEEP 5, Fio 60% -ABG reviewed -PPI prophylaxis. Abdominal distention - Increasing - Plan for Ct head, chest and abdomen today - Started on Lasix 40 BID today Toxic metabolic encephalopathy -Likely secondary to CVA, drug use, seizure -Urine screen positive for opiates and bezodiazepines -seizures precautions - Neurology consulted: appreciate recs Feeding -On tube feeding , tolerating at goal, 55/hr -Flushes of 150ml q 6 hrs (once IVF is discontinued) -Probiotic and PPI initiated Influenza viral infection -afebrile, WBC wnl -On PO Tamiflu -Contact precautions -ID consult, Dr Velazco. Community acquired Pneumonia -Afebrile, no white count, lactate 0.9 -ID consult, Dr Velazco. consider HERMILA when feasible to r/o Vegetation, clot , other -Calculated CrCl was 48. Renal dose medications. -Levaquin IV, renal dose -1x dose of Vancomycin as per ID,Dr Velazco. Acute renal injury -Dehydration improving, CPK was only 800, so no Rhabdomyolysis as the cause of JOE -Improving -continue IVF HIV -HAART resumed. Tivicay and Truvada -CD4 = 135 -Screen for oportunistic infections. -Acyclovir and Bactrim for prophylaxis. -ID consult, Dr Velazco. Will follow recs Elevated troponins -Cardiology on board, Dr Zahra Guevara. -Probably secondary to rhabdomyolysis. -F/U CPK serum levels Chronic hepatitis C -Chronic -HCV vral load ordered -ID consult, Dr Velazco. Prophylaxis -Lovenox 30mg daily <Mikala Guzman - Last Filed: 07/16/18 16:33> Objective - Vital Signs/Intake and Output Vital Signs (last 24 hours): Temp Pulse Resp BP Pulse Ox 95.4 F L 104 H 18 128/80 94 L 07/16/18 12:00 07/16/18 14:00 07/16/18 15:17 07/16/18 14:00 07/16/18 14:00 Intake and Output: 07/16/18 07/16/18 06:59 18:59 Intake Total 693 353 Output Total 700 1600 Balance -8 -1037 - Medications Medications: Current Medications Acetaminophen (Tylenol 650mg/20.3ml Solution Ud) 650 mg PO Q4H PRN PRN Reason: Temperature Last Admin: 07/13/18 23:42 Dose: 650 mg Albuterol/Ipratropium (Duoneb 3 Mg/0.5 Mg (3 Ml) Ud) 3 ml INH RQ4 [facility] Last Admin: 07/16/18 15:17 Dose: 3 ml Aspirin (Aspirin) 325 mg PO DAILY [facility] Last Admin: 07/16/18 08:03 Dose: 325 mg Atorvastatin Calcium (Lipitor) 20 mg PO HS [facility] Last Admin: 07/15/18 21:12 Dose: 20 mg Dextrose (Dextrose 50% Inj) 0 ml IV STAT PRN; Protocol PRN Reason: Hypoglycemia Protocol Dextrose (Glutose 15) 0 gm PO ONCE PRN; Protocol PRN Reason: Hypoglycemia Protocol Dolutegravir Sodium (Tivicay) 50 mg PO DAILY [facility]; Protocol Last Admin: 07/16/18 08:06 Dose: 50 mg Emtricitabine/Tenofovir (Truvada 200 Mg-300 Mg) 1 tab PO DAILY [facility]; Protocol Last Admin: 07/16/18 08:07 Dose: 1 tab Enoxaparin Sodium (Lovenox) 30 mg SC DAILY [facility]; Protocol Last Admin: 07/16/18 08:04 Dose: 30 mg Furosemide (Lasix) 40 mg IVP BID [facility] Stop: 07/17/18 17:01 Last Admin: 07/16/18 08:48 Dose: 40 mg Glucagon (Glucagen Diagnostic Kit) 0 mg IM STAT PRN; Protocol PRN Reason: Hypoglycemia Protocol Levofloxacin/Dextrose (Levaquin 750mg) 750 mg in 150 mls @ 100 mls/hr IVPB Q48H [facility] Last Admin: 07/15/18 08:11 Dose: 100 mls/hr Acyclovir 500 mg/ Sodium (Chloride) 100 mls @ 100 mls/hr IV Q12H [facility]; Protocol Last Admin: 07/16/18 12:36 Dose: 100 mls/hr Vancomycin HCl 1 gm/ Sodium (Chloride) 250 mls @ 166.667 mls/hr IVPB Q24H [facility]; Protocol Last Admin: 07/16/18 14:42 Dose: 166.667 mls/hr Insulin Human Regular (Humulin R) 0 units SC ACHS [facility]; Protocol Last Admin: 07/16/18 12:29 Dose: Not Given Lactobacillus Acidophilus (Bacid Acidophilus) 1 cap PO BID [facility] Last Admin: 07/16/18 08:03 Dose: 1 cap Lactulose (Enulose) 10 gm PO DAILY PRN PRN Reason: Constipation Last Admin: 07/15/18 12:55 Dose: 10 gm Oseltamivir Phosphate (Tamiflu Cap) 75 mg PO BID [facility]; Protocol Last Admin: 07/16/18 08:06 Dose: 75 mg Pantoprazole Sodium (Protonix Susp) 40 mg NG DAILY [facility] Last Admin: 07/16/18 08:04 Dose: 40 mg Senna/Docusate Sodium (Senokot S 50 Mg-8.6 Mg) 2 tab PO BID [facility] Last Admin: 07/16/18 15:33 Dose: Not Given Trimethoprim/Sulfamethoxazole (Sulfatrim Pediatric Susp) 20 ml PO Q12 [facility]; Protocol Stop: 08/16/18 08:00 Last Admin: 07/16/18 08:05 Dose: 20 ml - Labs Labs: 07/16/18 04:41 07/16/18 04:41 PT 11.5 Seconds (9.8-13.1) 07/11/18 19:12 INR 1.0 07/11/18 19:12 APTT 28.9 Seconds (25.6-37.1) 07/11/18 19:12 Attending/Attestation - Attestation I have personally seen and examined this patient.: Yes I have fully participated in the care of the patient.: Yes I have reviewed all pertinent clinical information, including history, physical exam and plan: Yes Notes (Text): Pt self extubated at around 12 noon, now on Bipap. We will continue to monitor .
--- NOTE | 2018-07-16 13:10 | CP.PCM.PN ---
Subjective - Date & Time of Evaluation Date of Evaluation: 07/16/18 Time of Evaluation: 13:10 - Subjective Subjective: SELF EXTUBATED O2 SAT-89% ON 4L/NC AWAKE AND ALERT Objective - Vital Signs/Intake and Output Vital Signs (last 24 hours): Temp Pulse Resp BP Pulse Ox 95.4 F L 91 H 35 H 128/55 L 94 L 07/16/18 12:00 07/16/18 12:00 07/16/18 12:00 07/16/18 12:00 07/16/18 12:00 Intake and Output: 07/16/18 07/16/18 06:59 18:59 Intake Total 693 349 Output Total 700 1000 Balance -7 -651 - Medications Medications: Current Medications Acetaminophen (Tylenol 650mg/20.3ml Solution Ud) 650 mg PO Q4H PRN PRN Reason: Temperature Last Admin: 07/13/18 23:42 Dose: 650 mg Albuterol/Ipratropium (Duoneb 3 Mg/0.5 Mg (3 Ml) Ud) 3 ml INH RQ4 [facility] Last Admin: 07/16/18 11:55 Dose: 3 ml Aspirin (Aspirin) 325 mg PO DAILY [facility] Last Admin: 07/16/18 08:03 Dose: 325 mg Atorvastatin Calcium (Lipitor) 20 mg PO HS [facility] Last Admin: 07/15/18 21:12 Dose: 20 mg Dextrose (Dextrose 50% Inj) 0 ml IV STAT PRN; Protocol PRN Reason: Hypoglycemia Protocol Dextrose (Glutose 15) 0 gm PO ONCE PRN; Protocol PRN Reason: Hypoglycemia Protocol Dolutegravir Sodium (Tivicay) 50 mg PO DAILY [facility]; Protocol Last Admin: 07/16/18 08:06 Dose: 50 mg Emtricitabine/Tenofovir (Truvada 200 Mg-300 Mg) 1 tab PO DAILY [facility]; Protocol Last Admin: 07/16/18 08:07 Dose: 1 tab Enoxaparin Sodium (Lovenox) 30 mg SC DAILY [facility]; Protocol Last Admin: 07/16/18 08:04 Dose: 30 mg Furosemide (Lasix) 40 mg IVP BID [facility] Stop: 07/17/18 17:01 Last Admin: 07/16/18 08:48 Dose: 40 mg Glucagon (Glucagen Diagnostic Kit) 0 mg IM STAT PRN; Protocol PRN Reason: Hypoglycemia Protocol Levofloxacin/Dextrose (Levaquin 750mg) 750 mg in 150 mls @ 100 mls/hr IVPB Q48H [facility] Last Admin: 07/15/18 08:11 Dose: 100 mls/hr Acyclovir 500 mg/ Sodium (Chloride) 100 mls @ 100 mls/hr IV Q12H [facility]; Protocol Last Admin: 07/16/18 12:36 Dose: 100 mls/hr Dexmedetomidine HCl 400 mcg/ (Sodium Chloride) 100 mls @ 28.74 mls/hr IV .Q3H29M [facility]; Protocol Last Titration: 07/16/18 12:07 Dose: Infused Vancomycin HCl 1 gm/ Sodium (Chloride) 250 mls @ 166.667 mls/hr IVPB Q24H [facility]; Protocol Last Admin: 07/15/18 15:00 Dose: 166.667 mls/hr Insulin Human Regular (Humulin R) 0 units SC ACHS [facility]; Protocol Last Admin: 07/16/18 12:29 Dose: Not Given Lactobacillus Acidophilus (Bacid Acidophilus) 1 cap PO BID [facility] Last Admin: 07/16/18 08:03 Dose: 1 cap Lactulose (Enulose) 10 gm PO DAILY PRN PRN Reason: Constipation Last Admin: 07/15/18 12:55 Dose: 10 gm Midazolam HCl (Versed Inj) 2 mg IV Q6 PRN PRN Reason: Agitation Last Admin: 07/16/18 10:11 Dose: 2 mg Oseltamivir Phosphate (Tamiflu Cap) 75 mg PO BID [facility]; Protocol Last Admin: 07/16/18 08:06 Dose: 75 mg Pantoprazole Sodium (Protonix Susp) 40 mg NG DAILY [facility] Last Admin: 07/16/18 08:04 Dose: 40 mg Trimethoprim/Sulfamethoxazole (Sulfatrim Pediatric Susp) 20 ml PO Q12 [facility]; Protocol Stop: 08/16/18 08:00 Last Admin: 07/16/18 08:05 Dose: 20 ml - Labs Labs: 07/16/18 04:41 07/16/18 04:41 PT 11.5 Seconds (9.8-13.1) 07/11/18 19:12 INR 1.0 07/11/18 19:12 APTT 28.9 Seconds (25.6-37.1) 07/11/18 19:12 - Constitutional Appears: Chronically Ill - Head Exam Head Exam: ATRAUMATIC, NORMAL INSPECTION, NORMOCEPHALIC - Eye Exam Eye Exam: EOMI, Normal appearance, PERRL Pupil Exam: NORMAL ACCOMODATION, PERRL - ENT Exam ENT Exam: Mucous Membranes Moist, Normal Exam - Neck Exam Neck Exam: Full ROM, Normal Inspection. absent: Lymphadenopathy - Respiratory Exam Respiratory Exam: Decreased Breath Sounds, Prolonged Expiratory Phase, Rales, Wheezes, NORMAL BREATHING PATTERN - Cardiovascular Exam Cardiovascular Exam: REGULAR RHYTHM, +S1, +S2. absent: Murmur - GI/Abdominal Exam GI & Abdominal Exam: Soft, Normal Bowel Sounds. absent: Tenderness - Rectal Exam Rectal Exam: NORMAL INSPECTION - Extremities Exam Extremities Exam: Full ROM, Normal Capillary Refill, Normal Inspection. absent: Joint Swelling, Pedal Edema - Back Exam Back Exam: NORMAL INSPECTION - Neurological Exam Neurological Exam: Alert, Awake, CN II-XII Intact, Normal Gait, Oriented x3 - Psychiatric Exam Psychiatric exam: Normal Affect, Normal Mood - Skin Skin Exam: Dry, Intact, Normal Color, Warm Assessment and Plan - Assessment and Plan (Free Text) Assessment: RESP FAILURE FLU SEIZURES Plan: PLACE ON HIGH FLOW O2
[2018-07-16] MEDS: Docusate-Senna 50 mg-8.6 mg Tab PO SCH (15:33)
--- NOTE | 2018-07-16 15:43 | CP.CCUPN ---
CCU Subjective - Physician Review Events Since Last Encounter (Free Text): 07/16/18 15:39 alert and following commands. Stopped all sedation and patient self extubated. CCU Objective - Vital Signs / Intake & Output Vital Signs (Last 4 hours): Vital Signs Temp Pulse Resp BP Pulse Ox 07/16/18 14:00 104 H 35 H 128/80 94 L 07/16/18 13:29 36 H 07/16/18 13:00 91 H 44 H 118/74 92 L 07/16/18 12:00 95.4 F L 91 H 35 H 128/55 L 94 L Intake and Output (Last 8hrs): Intake & Output 07/16/18 07/16/18 07/16/18 06:59 14:59 22:59 Intake Total 576 353 Output Total 700 1600 Balance -124 -1247 Intake: IV 426 293 Free Water Flush 150 60 Output: Urine 700 1600 Urethral (Alberto) 700 1600 - Physical Exam Head: Positive for: Atraumatic, Normocephalic Pupils: Positive for: PERRL Extroacular Muscles: Positive for: EOMI Conjunctiva: Positive for: Normal Mouth: Positive for: Moist Mucous Membranes Pharnyx: Positive for: Normal Nose (External): Positive for: Atraumatic Neck: Positive for: Normal Range of Motion Respiratory/Chest: Positive for: Decreased Breath Sounds (at RLL), Other (course breath sounds b/l ) Cardiovascular: Positive for: Normal S1, S2 Abdomen: Positive for: Normal Bowel Sounds. Negative for: Tenderness, Distention Upper Extremity: Positive for: Normal Inspection, Other (edema noted of the R hand >L hand ) Lower Extremity: Positive for: Normal Inspection, Other (scds on, no edema noted , moving LLE not seen moving RLE ) Neurological: Positive for: Other (right hemiparesis, sedated ). Negative for: GCS=15 Psychiatric: Positive for: Alert - Medications Active Medications: Active Medications Generic Name Dose Route Start Last Admin Trade Name Freq PRN Reason Stop Dose Admin Acetaminophen 650 mg 07/13/18 04:23 07/13/18 23:42 Tylenol 650mg/20.3ml Solution Ud PO 650 mg Q4H PRN Administration Temperature Albuterol/Ipratropium 3 ml 07/12/18 20:00 07/16/18 15:17 Duoneb 3 Mg/0.5 Mg (3 Ml) Ud INH 3 ml RQ4 FAY Administration Aspirin 325 mg 07/14/18 09:15 07/16/18 08:03 Aspirin PO 325 mg DAILY FAY Administration Atorvastatin Calcium 20 mg 07/13/18 22:00 07/15/18 21:12 Lipitor PO 20 mg HS FAY Administration Dextrose 0 ml 07/11/18 18:48 Dextrose 50% Inj IV STAT PRN Hypoglycemia Protocol Protocol Dextrose 0 gm 07/11/18 18:48 Glutose 15 PO ONCE PRN Hypoglycemia Protocol Protocol Dolutegravir Sodium 50 mg 07/13/18 09:00 07/16/18 08:06 Tivicay PO 50 mg DAILY FAY Administration Protocol Emtricitabine/Tenofovir 1 tab 07/13/18 09:00 07/16/18 08:07 Truvada 200 Mg-300 Mg PO 1 tab DAILY FAY Administration Protocol Enoxaparin Sodium 30 mg 07/13/18 09:00 07/16/18 08:04 Lovenox SC 30 mg DAILY FAY Administration Protocol Furosemide 40 mg 07/16/18 09:00 07/16/18 08:48 Lasix IVP 07/17/18 17:01 40 mg BID FAY Administration Glucagon 0 mg 07/11/18 18:48 Glucagen Diagnostic Kit IM STAT PRN Hypoglycemia Protocol Protocol Levofloxacin/Dextrose 750 mg in 150 mls @ 100 mls/hr 07/13/18 09:00 07/15/18 08:11 Levaquin 750mg IVPB 100 mls/hr Q48H FAY Administration Acyclovir 500 mg/ Sodium 100 mls @ 100 mls/hr 07/13/18 13:30 07/16/18 12:36 Chloride IV 100 mls/hr Q12H FAY Administration Protocol Dexmedetomidine HCl 400 mcg/ 100 mls @ 28.74 mls/hr 07/14/18 17:47 07/16/18 12:07 Sodium Chloride IV Infused .Q3H29M FAY Titration Protocol 1.6 MCG/KG/HR Vancomycin HCl 1 gm/ Sodium 250 mls @ 166.667 mls/hr 07/15/18 13:45 07/16/18 14:42 Chloride IVPB 166.667 mls/hr Q24H FAY Administration Protocol Insulin Human Regular 0 units 07/11/18 22:00 07/16/18 12:29 Humulin R SC Not Given ACHS FAY Protocol Lactobacillus Acidophilus 1 cap 07/13/18 09:00 07/16/18 08:03 Bacid Acidophilus PO 1 cap BID FAY Administration Lactulose 10 gm 07/14/18 10:54 07/15/18 12:55 Enulose PO 10 gm DAILY PRN Administration Constipation Midazolam HCl 2 mg 07/12/18 11:03 07/16/18 10:11 Versed Inj IV 2 mg Q6 PRN Administration Agitation Oseltamivir Phosphate 75 mg 07/12/18 17:00 07/16/18 08:06 Tamiflu Cap PO 75 mg BID FAY Administration Protocol Pantoprazole Sodium 40 mg 07/14/18 09:15 07/16/18 08:04 Protonix Susp NG 40 mg DAILY FAY Administration Senna/Docusate Sodium 2 tab 07/16/18 14:00 07/16/18 15:33 Senokot S 50 Mg-8.6 Mg PO Not Given BID FAY Trimethoprim/Sulfamethoxazole 20 ml 07/15/18 21:00 07/16/18 08:05 Sulfatrim Pediatric Susp PO 08/16/18 08:00 20 ml Q12 FAY Administration Protocol - Patient Studies Lab Studies: Microbiology Studies 07/11/18 16:50 Blood Culture - Preliminary Blood-Venous NO GROWTH AFTER 4 DAYS Lab Studies 07/16/18 07/16/18 07/16/18 Range/Units 12:22 04:41 04:41 WBC (4.8-10.8) K/uL RBC (3.80-5.20) Mil/uL Hgb (12.0-16.0) g/dL Hct (34.0-47.0) % MCV (81.0-99.0) fl MCH (27.0-31.0) pg MCHC (33.0-37.0) g/dL RDW (11.5-14.5) % Plt Count (130-400) K/uL MPV (7.2-11.7) fl Neut % (Auto) (50.0-75.0) % Lymph % (Auto) (20.0-40.0) % Chaves % (Auto) (0.0-10.0) % Eos % (Auto) (0.0-4.0) % Baso % (Auto) (0.0-2.0) % Neut # (Auto) (1.8-7.0) K/uL Lymph # (Auto) (1.0-4.3) K/uL Chaves # (Auto) (0.0-0.8) K/uL Eos # (Auto) (0.0-0.7) K/uL Baso # (Auto) (0.0-0.2) K/uL Neutrophils % (Manual) (42-75) % Lymphocytes % (Manual) (20-50) % Monocytes % (Manual) (0-10) % Platelet Estimate (NORMAL) Anisocytosis (manual) Ovalocytes pCO2 30 L (35-45) mm/Hg pO2 70 L (80-100) mm/Hg HCO3 24.4 (21-28) mmol/L ABG pH 7.48 H (7.35-7.45) ABG Total CO2 23.2 (22-28) mmol/L ABG O2 Saturation 94.7 L (95-98) % ABG O2 Content 14.1 L (15-23) ML/dL ABG Base Excess -0.6 (-2.0-3.0) mmol/L ABG Hemoglobin 10.8 L (11.7-17.4) g/dL ABG Carboxyhemoglobin 0.6 (0.5-1.5) % POC ABG HHb (Measured) 5.2 H (0.0-5.0) % ABG Methemoglobin 1.5 (0.0-3.0) % ABG O2 Capacity 14.9 L (16-24) mL/dL Bob Test Yes A-a O2 Difference 320.0 mm/Hg Hgb O2 Saturation 92.7 L (95.0-98.0) % Vent Mode A/c Mechanical Rate 12 FiO2 60.0 % Tidal Volume 450 PEEP 5 Sodium (132-148) mmol/l Potassium (3.6-5.0) MMOL/L Chloride (98-107) mmol/L Carbon Dioxide (22-30) mmol/L Anion Gap (10-20) BUN (7-17) mg/dl Creatinine (0.7-1.2) mg/dl Est GFR ( Amer) Est GFR (Non-Af Amer) POC Glucose (mg/dL) 103 (65-110) mg/dL Random Glucose (65-105) mg/dL Calcium (8.4-10.2) mg/dL Phosphorus (2.5-4.5) mg/dl Total Bilirubin (0.2-1.3) mg/dl AST (14-36) U/L ALT (9-52) U/L Alkaline Phosphatase (38-126) U/L Lactate Dehydrogenase (313-618) U/L Total Protein (6.3-8.2) G/DL Albumin (3.5-5.0) g/dL Globulin (2.2-3.9) gm/dL Albumin/Globulin Ratio (1.0-2.1) Procalcitonin 0.18 L (0.19-0.49) NG/ML 07/16/18 07/16/18 07/15/18 Range/Units 04:41 04:41 21:09 WBC 5.7 (4.8-10.8) K/uL RBC 3.99 (3.80-5.20) Mil/uL Hgb 10.8 L (12.0-16.0) g/dL Hct 33.3 L (34.0-47.0) % MCV 83.5 (81.0-99.0) fl MCH 27.1 (27.0-31.0) pg MCHC 32.4 L (33.0-37.0) g/dL RDW 17.5 H (11.5-14.5) % Plt Count 173 (130-400) K/uL MPV 9.0 (7.2-11.7) fl Neut % (Auto) 80.7 H (50.0-75.0) % Lymph % (Auto) 9.8 L (20.0-40.0) % Chaves % (Auto) 8.3 (0.0-10.0) % Eos % (Auto) 1.0 (0.0-4.0) % Baso % (Auto) 0.2 (0.0-2.0) % Neut # (Auto) 4.6 (1.8-7.0) K/uL Lymph # (Auto) 0.6 L (1.0-4.3) K/uL Chaves # (Auto) 0.5 (0.0-0.8) K/uL Eos # (Auto) 0.1 (0.0-0.7) K/uL Baso # (Auto) 0.0 (0.0-0.2) K/uL Neutrophils % (Manual) 84 H (42-75) % Lymphocytes % (Manual) 10 L (20-50) % Monocytes % (Manual) 6 (0-10) % Platelet Estimate Normal (NORMAL) Anisocytosis (manual) Slight Ovalocytes Slight pCO2 (35-45) mm/Hg pO2 (80-100) mm/Hg HCO3 (21-28) mmol/L ABG pH (7.35-7.45) ABG Total CO2 (22-28) mmol/L ABG O2 Saturation (95-98) % ABG O2 Content (15-23) ML/dL ABG Base Excess (-2.0-3.0) mmol/L ABG Hemoglobin (11.7-17.4) g/dL ABG Carboxyhemoglobin (0.5-1.5) % POC ABG HHb (Measured) (0.0-5.0) % ABG Methemoglobin (0.0-3.0) % ABG O2 Capacity (16-24) mL/dL Bob Test A-a O2 Difference mm/Hg Hgb O2 Saturation (95.0-98.0) % Vent Mode Mechanical Rate FiO2 % Tidal Volume PEEP Sodium 141 (132-148) mmol/l Potassium 4.2 (3.6-5.0) MMOL/L Chloride 111 H (98-107) mmol/L Carbon Dioxide 24 (22-30) mmol/L Anion Gap 10 (10-20) BUN 25 H (7-17) mg/dl Creatinine 1.2 (0.7-1.2) mg/dl Est GFR ( Amer) 56 Est GFR (Non-Af Amer) 46 POC Glucose (mg/dL) 111 H (65-110) mg/dL Random Glucose 142 H (65-105) mg/dL Calcium 8.4 (8.4-10.2) mg/dL Phosphorus 3.6 (2.5-4.5) mg/dl Total Bilirubin 0.4 (0.2-1.3) mg/dl AST 36 (14-36) U/L ALT 31 (9-52) U/L Alkaline Phosphatase 73 (38-126) U/L Lactate Dehydrogenase 679 H (313-618) U/L Total Protein 7.2 (6.3-8.2) G/DL Albumin 3.1 L (3.5-5.0) g/dL Globulin 4.1 H (2.2-3.9) gm/dL Albumin/Globulin Ratio 0.8 L (1.0-2.1) Procalcitonin (0.19-0.49) NG/ML 07/15/18 Range/Units 16:25 WBC (4.8-10.8) K/uL RBC (3.80-5.20) Mil/uL Hgb (12.0-16.0) g/dL Hct (34.0-47.0) % MCV (81.0-99.0) fl MCH (27.0-31.0) pg MCHC (33.0-37.0) g/dL RDW (11.5-14.5) % Plt Count (130-400) K/uL MPV (7.2-11.7) fl Neut % (Auto) (50.0-75.0) % Lymph % (Auto) (20.0-40.0) % Chaves % (Auto) (0.0-10.0) % Eos % (Auto) (0.0-4.0) % Baso % (Auto) (0.0-2.0) % Neut # (Auto) (1.8-7.0) K/uL Lymph # (Auto) (1.0-4.3) K/uL Chaves # (Auto) (0.0-0.8) K/uL Eos # (Auto) (0.0-0.7) K/uL Baso # (Auto) (0.0-0.2) K/uL Neutrophils % (Manual) (42-75) % Lymphocytes % (Manual) (20-50) % Monocytes % (Manual) (0-10) % Platelet Estimate (NORMAL) Anisocytosis (manual) Ovalocytes pCO2 (35-45) mm/Hg pO2 (80-100) mm/Hg HCO3 (21-28) mmol/L ABG pH (7.35-7.45) ABG Total CO2 (22-28) mmol/L ABG O2 Saturation (95-98) % ABG O2 Content (15-23) ML/dL ABG Base Excess (-2.0-3.0) mmol/L ABG Hemoglobin (11.7-17.4) g/dL ABG Carboxyhemoglobin (0.5-1.5) % POC ABG HHb (Measured) (0.0-5.0) % ABG Methemoglobin (0.0-3.0) % ABG O2 Capacity (16-24) mL/dL Bob Test A-a O2 Difference mm/Hg Hgb O2 Saturation (95.0-98.0) % Vent Mode Mechanical Rate FiO2 % Tidal Volume PEEP Sodium (132-148) mmol/l Potassium (3.6-5.0) MMOL/L Chloride (98-107) mmol/L Carbon Dioxide (22-30) mmol/L Anion Gap (10-20) BUN (7-17) mg/dl Creatinine (0.7-1.2) mg/dl Est GFR ( Amer) Est GFR (Non-Af Amer) POC Glucose (mg/dL) 126 H (65-110) mg/dL Random Glucose (65-105) mg/dL Calcium (8.4-10.2) mg/dL Phosphorus (2.5-4.5) mg/dl Total Bilirubin (0.2-1.3) mg/dl AST (14-36) U/L ALT (9-52) U/L Alkaline Phosphatase (38-126) U/L Lactate Dehydrogenase (313-618) U/L Total Protein (6.3-8.2) G/DL Albumin (3.5-5.0) g/dL Globulin (2.2-3.9) gm/dL Albumin/Globulin Ratio (1.0-2.1) Procalcitonin (0.19-0.49) NG/ML Laboratory Results - last 24 hr 07/15/18 07/15/18 07/16/18 16:25 21:09 04:41 WBC 5.7 RBC 3.99 Hgb 10.8 L Hct 33.3 L MCV 83.5 MCH 27.1 MCHC 32.4 L RDW 17.5 H Plt Count 173 MPV 9.0 Neut % (Auto) 80.7 H Lymph % (Auto) 9.8 L Chaves % (Auto) 8.3 Eos % (Auto) 1.0 Baso % (Auto) 0.2 Neut # (Auto) 4.6 Lymph # (Auto) 0.6 L Chaves # (Auto) 0.5 Eos # (Auto) 0.1 Baso # (Auto) 0.0 Neutrophils % (Manual) 84 H Lymphocytes % (Manual) 10 L Monocytes % (Manual) 6 Platelet Estimate Normal Anisocytosis (manual) Slight Ovalocytes Slight pCO2 pO2 HCO3 ABG pH ABG Total CO2 ABG O2 Saturation ABG O2 Content ABG Base Excess ABG Hemoglobin ABG Carboxyhemoglobin POC ABG HHb (Measured) ABG Methemoglobin ABG O2 Capacity Bob Test A-a O2 Difference Hgb O2 Saturation Vent Mode Mechanical Rate FiO2 Tidal Volume PEEP Sodium Potassium Chloride Carbon Dioxide Anion Gap BUN Creatinine Est GFR ( Amer) Est GFR (Non-Af Amer) POC Glucose (mg/dL) 126 H 111 H Random Glucose Calcium Phosphorus Total Bilirubin AST ALT Alkaline Phosphatase Lactate Dehydrogenase Total Protein Albumin Globulin Albumin/Globulin Ratio Procalcitonin 07/16/18 07/16/18 07/16/18 04:41 04:41 04:41 WBC RBC Hgb Hct MCV MCH MCHC RDW Plt Count MPV Neut % (Auto) Lymph % (Auto) Chaves % (Auto) Eos % (Auto) Baso % (Auto) Neut # (Auto) Lymph # (Auto) Chaves # (Auto) Eos # (Auto) Baso # (Auto) Neutrophils % (Manual) Lymphocytes % (Manual) Monocytes % (Manual) Platelet Estimate Anisocytosis (manual) Ovalocytes pCO2 30 L pO2 70 L HCO3 24.4 ABG pH 7.48 H ABG Total CO2 23.2 ABG O2 Saturation 94.7 L ABG O2 Content 14.1 L ABG Base Excess -0.6 ABG Hemoglobin 10.8 L ABG Carboxyhemoglobin 0.6 POC ABG HHb (Measured) 5.2 H ABG Methemoglobin 1.5 ABG O2 Capacity 14.9 L Bob Test Yes A-a O2 Difference 320.0 Hgb O2 Saturation 92.7 L Vent Mode A/c Mechanical Rate 12 FiO2 60.0 Tidal Volume 450 PEEP 5 Sodium 141 Potassium 4.2 Chloride 111 H Carbon Dioxide 24 Anion Gap 10 BUN 25 H Creatinine 1.2 Est GFR ( Amer) 56 Est GFR (Non-Af Amer) 46 POC Glucose (mg/dL) Random Glucose 142 H Calcium 8.4 Phosphorus 3.6 Total Bilirubin 0.4 AST 36 ALT 31 Alkaline Phosphatase 73 Lactate Dehydrogenase 679 H Total Protein 7.2 Albumin 3.1 L Globulin 4.1 H Albumin/Globulin Ratio 0.8 L Procalcitonin 0.18 L 07/16/18 12:22 WBC RBC Hgb Hct MCV MCH MCHC RDW Plt Count MPV Neut % (Auto) Lymph % (Auto) Chaves % (Auto) Eos % (Auto) Baso % (Auto) Neut # (Auto) Lymph # (Auto) Chaves # (Auto) Eos # (Auto) Baso # (Auto) Neutrophils % (Manual) Lymphocytes % (Manual) Monocytes % (Manual) Platelet Estimate Anisocytosis (manual) Ovalocytes pCO2 pO2 HCO3 ABG pH ABG Total CO2 ABG O2 Saturation ABG O2 Content ABG Base Excess ABG Hemoglobin ABG Carboxyhemoglobin POC ABG HHb (Measured) ABG Methemoglobin ABG O2 Capacity Bob Test A-a O2 Difference Hgb O2 Saturation Vent Mode Mechanical Rate FiO2 Tidal Volume PEEP Sodium Potassium Chloride Carbon Dioxide Anion Gap BUN Creatinine Est GFR ( Amer) Est GFR (Non-Af Amer) POC Glucose (mg/dL) 103 Random Glucose Calcium Phosphorus Total Bilirubin AST ALT Alkaline Phosphatase Lactate Dehydrogenase Total Protein Albumin Globulin Albumin/Globulin Ratio Procalcitonin Radiology Impressions: Radiology Impressions Chest X-Ray 07/16/18 09:00 IMPRESSION: ETT and NGT as above. Persistent but improved bibasilar atelectasis and/or infiltrates. Small bilateral effusions right larger than left felt be present.. Fingerstick Blood Sugar Results: 103 Review of Systems - Review of Systems Systems not reviewed;Unavailable: Other (on BIPAP immediately post self- extubation) Assessment/Plan (1) CVA (cerebral vascular accident) Assessment and plan: 58 y/o F with PMhx of HIV, Substance abuse, Asthma, bipolar disorder, Hep C. found down at home. Admitted for suspected heroin overdose, with positive opioid and long known history. Neuro exam was obfuscated given heroin use. This morning found to have right sided hemiparesis. Neuro: Brain MRI (07/11) shows left posterior parietal ischemic stroke (was not a candidate for tPA given unknown time of onset), continue ASA and Lipitor. Neuro - Dr. Sonny Zhang: fluid overload on chest x-ray, starting diuresis. patient self extubated before I could make her euvolemic, so with positive fluid status lung compliance may be poor. Immediately placed on BIPAP. CV: hemodynamically stable. Hem: no acute issues Renal: acute kidney injury with mild rhabdomyolysis, improved. Starting lasix IV q12h to make patient euvolemic. Endo: intermittent hyperglycemia was possibly reactive, will check A1C. No history of DM, may be able to d/c RISS. GI: NPO, s/s eval tomorrow. ID: no leucocytosis, but possibly immunocompromised with HIV with low CD4 count - 17, HAART - Truvada, Tivicay. PCP prophylaxis, Bactrim. Aspiration pneumonia on CXR, continue levaquin, vancomycin, Zovirax. Tamiflu (+ Flu type A). ID - Dr. Velazco DVT proph - lovenox GI proph - protonix alberto for strict I/O's during acute illness Code status - full code Critical Care Time spent 35 minutes Multi-disciplinary rounds were performed with house staff, nursing, speech therapy, respiratory therapy, pharmacy and nutrition with integrated input from the primary team/attending and other consulting services. The documented time i s cumulative and includes review of patient data/exams/labs/chart review and examination of the patient on rounds and throughout the day; time is exclusive of any procedures or teaching time. Current Visit: Yes Status: Acute
[2018-07-16 20:06] LABS: ARTERIAL BLOOD GAS HCO3 26.4 mmol/L (21-28); ARTERIAL BLOOD GAS O2 CAPACITY 16.6 mL/dL (16-24); ARTERIAL BLOOD GAS O2 SAT 90.5 % (95-98); ARTERIAL BLOOD GAS PCO2 27 mm/Hg (35-45); ARTERIAL BLOOD GAS PH 7.55 (7.35-7.45); ARTERIAL BLOOD GAS PO2 54 mm/Hg (80-100); ARTERIAL BLOOD GAS TCO2 24.4 mmol/L (22-28)
[2018-07-17] MEDS: Albuterol-Ipratrop 3 mg / 0.5 (3 ml) UD INH SCH ×7 (00:38→23:12)
[2018-07-17] MEDS: Acyclovir 500 MG in Sodium Chloride 0.9% 100 ML IV SCH ×2 (01:32→13:07)
[2018-07-17 05:06] LABS: HEMOGLOBIN 11.2 g/dL (12.0-16.0); MEAN CELL VOLUME 82.2 fl (81.0-99.0); MEAN CORPUSCULAR HGB CONC 32.9 g/dL (33.0-37.0); RBC 4.15 Mil/uL (3.80-5.20); RED CELL DISTRIBUTION WIDTH 17.3 % (11.5-14.5); WHITE BLOOD COUNT 10.1 K/uL (4.8-10.8)
[2018-07-17 05:14] LABS: ABG ALLEN TEST YES; ARTERIAL BLOOD GAS HCO3 26.1 mmol/L (21-28); ARTERIAL BLOOD GAS O2 SAT 95.3 % (95-98); ARTERIAL BLOOD GAS PCO2 33 mm/Hg (35-45); ARTERIAL BLOOD GAS PH 7.48 (7.35-7.45); ARTERIAL BLOOD GAS PO2 77 mm/Hg (80-100); ARTERIAL BLOOD GAS TCO2 25.6 mmol/L (22-28)
[2018-07-17 05:46] LABS: ALB/GLOB RATIO 0.8 (1.0-2.1); ALBUMIN 3.2 g/dL (3.5-5.0); CALCIUM 8.4 mg/dL (8.4-10.2)
--- NOTE | 2018-07-17 07:26 | CP.CCUPN ---
CCU Subjective - Physician Review Subjective (Free Text): 07/17/18 10:26 The patient was Seen/interviewed and examined by me at the bedside during ICU round, Medical records reviewed and Management issues were discussed and formulated with the house staff. Events reviewed 51 Years old Female with PMHx of HTN, Hypercholesterolemia, Mitral Valve Prolapse, Anemia, Asthma/COPD/Bronchitis, Anxiety/Bipolar Disorder/Depression, Paranoia, Personality Disorder, Seizures and HIV disease (last known CD4= 18 in Mar 2018) Who was brought in to the emergency department by EMS after being found unconscious Pt with H/o of frequent ER visits and admissions for polysubstance abuse and intoxication. Patient very lethargic despite received Narcan x2, she was admitted to ICU for AMS and was orally intubated. Noted on physical exam to be obtunded, with dense right hemiplegia, MRI Brain on 07/11/18 revealed Multifocal late acute/early subacute infarctions in the left posterior parietal lobe. Pt also started on empiric vancomycin, Levaquin for Aspiration pneumonia on CXR. Also started on Zovirax and Tamiflu for Influenza viral infection Patient self extubated on 07/16, Comfortable, NAD Doing better today, more awake, alert and follows simple command Off BIPAP, on High flow nasal cannula, Titrating down FIO2 Afebrile, NSR on the monitor Last 24H I&O 2354/1600 Passed swallow eval today, started on Puree diet with thick nector fluid overload on chest x-ray, started on IV Lasix CCU Objective - Vital Signs / Intake & Output Vital Signs (Last 4 hours): Vital Signs Resp 07/17/18 04:48 20 Intake and Output (Last 8hrs): Intake & Output 07/16/18 07/17/18 07/17/18 22:59 06:59 14:59 Intake Total 8 100 Output Total 1700 600 Balance -1692 -500 Intake: IV 8 0 Intake, Piggyback 100 Free Water Flush 0 Output: Urine 1700 600 Urethral (Jimenez) 1700 600 Other: # Bowel Movements 0 - Physical Exam Head: Positive for: Atraumatic, Normocephalic Pupils: Positive for: PERRL Extroacular Muscles: Positive for: EOMI Conjunctiva: Positive for: Normal. Negative for: Injected, Icteric Ears: Positive for: Normal Mouth: Positive for: Moist Mucous Membranes Pharnyx: Positive for: Normal. Negative for: ERYTHEMA, EXUDATE Nose (External): Positive for: Atraumatic Neck: Positive for: Normal Range of Motion, Trachea Midline. Negative for: Meningeal Signs, MIDLINE TENDERNESS, Paraspinal Tenderness, JVD, Lymphadenopathy, Bruit, Other Respiratory/Chest: Positive for: Good Air Exchange, Decreased Breath Sounds (at RLL), Other (course breath sounds b/l ). Negative for: Respiratory Distress Cardiovascular: Positive for: Regular Rate and Rhythm, Normal S1, S2, Peripheal Pulses Present. Negative for: Murmurs, Tachycardic, Bradycardic Abdomen: Positive for: Normal Bowel Sounds. Negative for: Tenderness, Distention Upper Extremity: Positive for: Normal Inspection, Other (edema noted of the R hand >L hand ) Lower Extremity: Positive for: Normal Inspection, Other (scds on, no edema noted, moving LLE not seen moving RLE ) Neurological: Positive for: Other (right hemiparesis, sedated ). Negative for: GCS=15 Psychiatric: Positive for: Alert - Medications Active Medications: Active Medications Generic Name Dose Route Start Last Admin Trade Name Freq PRN Reason Stop Dose Admin Acetaminophen 650 mg 07/13/18 04:23 07/13/18 23:42 Tylenol 650mg/20.3ml Solution Ud PO 650 mg Q4H PRN Administration Temperature Albuterol/Ipratropium 3 ml 07/12/18 20:00 07/17/18 04:47 Duoneb 3 Mg/0.5 Mg (3 Ml) Ud INH 3 ml RQ4 FAY Administration Aspirin 325 mg 07/14/18 09:15 07/16/18 08:03 Aspirin PO 325 mg DAILY FAY Administration Atorvastatin Calcium 20 mg 07/13/18 22:00 07/16/18 22:00 Lipitor PO Not Given HS FAY Dextrose 0 ml 07/11/18 18:48 Dextrose 50% Inj IV STAT PRN Hypoglycemia Protocol Protocol Dextrose 0 gm 07/11/18 18:48 Glutose 15 PO ONCE PRN Hypoglycemia Protocol Protocol Dolutegravir Sodium 50 mg 07/13/18 09:00 07/16/18 08:06 Tivicay PO 50 mg DAILY FAY Administration Protocol Emtricitabine/Tenofovir 1 tab 07/13/18 09:00 07/16/18 08:07 Truvada 200 Mg-300 Mg PO 1 tab DAILY FAY Administration Protocol Enoxaparin Sodium 30 mg 07/13/18 09:00 07/16/18 08:04 Lovenox SC 30 mg DAILY FAY Administration Protocol Furosemide 40 mg 07/16/18 09:00 07/16/18 18:00 Lasix IVP 07/17/18 17:01 40 mg BID FAY Administration Glucagon 0 mg 07/11/18 18:48 Glucagen Diagnostic Kit IM STAT PRN Hypoglycemia Protocol Protocol Levofloxacin/Dextrose 750 mg in 150 mls @ 100 mls/hr 07/13/18 09:00 07/15/18 08:11 Levaquin 750mg IVPB 100 mls/hr Q48H FAY Administration Acyclovir 500 mg/ Sodium 100 mls @ 100 mls/hr 07/13/18 13:30 07/17/18 01:32 Chloride IV 100 mls/hr Q12H FAY Administration Protocol Vancomycin HCl 1 gm/ Sodium 250 mls @ 166.667 mls/hr 07/15/18 13:45 07/16/18 14:42 Chloride IVPB 166.667 mls/hr Q24H FAY Administration Protocol Insulin Human Regular 0 units 07/11/18 22:00 07/16/18 22:00 Humulin R SC Not Given ACHS [facility] Protocol Lactobacillus Acidophilus 1 cap 07/13/18 09:00 07/16/18 17:44 Bacid Acidophilus PO Not Given BID [facility] Lactulose 10 gm 07/14/18 10:54 07/15/18 12:55 Enulose PO 10 gm DAILY PRN Administration Constipation Ondansetron HCl 4 mg 07/16/18 20:57 07/16/18 21:00 Zofran Inj IVP 4 mg Q4 PRN Administration Nausea/Vomiting Pantoprazole Sodium 40 mg 07/14/18 09:15 07/16/18 08:04 Protonix Susp NG 40 mg DAILY FAY Administration Senna/Docusate Sodium 2 tab 07/16/18 14:00 07/16/18 15:33 Senokot S 50 Mg-8.6 Mg PO Not Given BID FAY Trimethoprim/Sulfamethoxazole 20 ml 07/15/18 21:00 07/16/18 21:00 Sulfatrim Pediatric Susp PO 08/16/18 08:00 Not Given Q12 [facility] Protocol - Patient Studies Lab Studies: Microbiology Studies 07/11/18 16:50 Blood Culture - Final Blood-Venous NO GROWTH AFTER 5 DAYS Gram Stain - Final TEST NOT PERFORMED Lab Studies 07/17/18 07/17/18 07/17/18 Range/Units 04:59 04:40 04:40 WBC 10.1 D (4.8-10.8) K/uL RBC 4.15 (3.80-5.20) Mil/uL Hgb 11.2 L (12.0-16.0) g/dL Hct 34.1 (34.0-47.0) % MCV 82.2 (81.0-99.0) fl MCH 27.0 (27.0-31.0) pg MCHC 32.9 L (33.0-37.0) g/dL RDW 17.3 H (11.5-14.5) % Plt Count 211 (130-400) K/uL Neutrophils % (Manual) (42-75) % Lymphocytes % (Manual) (20-50) % Monocytes % (Manual) (0-10) % Platelet Estimate (NORMAL) Anisocytosis (manual) Ovalocytes pCO2 33 L (35-45) mm/Hg pO2 77 L (80-100) mm/Hg HCO3 26.1 (21-28) mmol/L ABG pH 7.48 H (7.35-7.45) ABG Total CO2 25.6 (22-28) mmol/L ABG O2 Saturation 95.3 (95-98) % ABG O2 Content (15-23) ML/dL ABG Base Excess 1.6 (-2.0-3.0) mmol/L ABG Hemoglobin (11.7-17.4) g/dL ABG Carboxyhemoglobin (0.5-1.5) % POC ABG HHb (Measured) (0.0-5.0) % ABG Methemoglobin (0.0-3.0) % ABG O2 Capacity (16-24) mL/dL Bob Test Yes ABG Potassium 2.9 L (3.6-5.2) mmol/L A-a O2 Difference 381.0 mm/Hg Hgb O2 Saturation (95.0-98.0) % Glucose 79 (65-105) mg/dL Lactate 0.6 L (0.7-2.1) mmol/L Liter Flow Vent Mode High flow lpm FiO2 70.0 % Sodium 141.0 142 (132-148) mmol/l Potassium 2.8 L (3.6-5.0) MMOL/L Chloride 109.0 H 107 (98-107) mmol/L Carbon Dioxide 27 (22-30) mmol/L Anion Gap 11 (10-20) BUN 29 H (7-17) mg/dl Creatinine 1.4 H (0.7-1.2) mg/dl Est GFR ( Amer) 47 Est GFR (Non-Af Amer) 39 POC Glucose (mg/dL) (65-110) mg/dL Random Glucose 77 (65-105) mg/dL Hemoglobin A1c (4.2-6.5) % Calcium 8.4 (8.4-10.2) mg/dL Phosphorus (2.5-4.5) mg/dl Total Bilirubin 0.6 (0.2-1.3) mg/dl AST 48 H D (14-36) U/L ALT 32 (9-52) U/L Alkaline Phosphatase 81 (38-126) U/L Lactate Dehydrogenase (313-618) U/L Total Protein 7.2 (6.3-8.2) G/DL Albumin 3.2 L (3.5-5.0) g/dL Globulin 4.0 H (2.2-3.9) gm/dL Albumin/Globulin Ratio 0.8 L (1.0-2.1) Procalcitonin (0.19-0.49) NG/ML Arterial Blood Potassium 2.9 L (3.6-5.2) mmol/L Vancomycin Trough (5.0-10.0) ug/mL Ur L.pneumophila Ag (NEGATIVE) 07/17/18 07/17/18 07/17/18 Range/Units 04:40 04:17 02:42 WBC (4.8-10.8) K/uL RBC (3.80-5.20) Mil/uL Hgb (12.0-16.0) g/dL Hct (34.0-47.0) % MCV (81.0-99.0) fl MCH (27.0-31.0) pg MCHC (33.0-37.0) g/dL RDW (11.5-14.5) % Plt Count (130-400) K/uL Neutrophils % (Manual) (42-75) % Lymphocytes % (Manual) (20-50) % Monocytes % (Manual) (0-10) % Platelet Estimate (NORMAL) Anisocytosis (manual) Ovalocytes pCO2 (35-45) mm/Hg pO2 (80-100) mm/Hg HCO3 (21-28) mmol/L ABG pH (7.35-7.45) ABG Total CO2 (22-28) mmol/L ABG O2 Saturation (95-98) % ABG O2 Content (15-23) ML/dL ABG Base Excess (-2.0-3.0) mmol/L ABG Hemoglobin (11.7-17.4) g/dL ABG Carboxyhemoglobin (0.5-1.5) % POC ABG HHb (Measured) (0.0-5.0) % ABG Methemoglobin (0.0-3.0) % ABG O2 Capacity (16-24) mL/dL Bob Test ABG Potassium (3.6-5.2) mmol/L A-a O2 Difference mm/Hg Hgb O2 Saturation (95.0-98.0) % Glucose (65-105) mg/dL Lactate (0.7-2.1) mmol/L Liter Flow Vent Mode FiO2 % Sodium (132-148) mmol/l Potassium (3.6-5.0) MMOL/L Chloride (98-107) mmol/L Carbon Dioxide (22-30) mmol/L Anion Gap (10-20) BUN (7-17) mg/dl Creatinine (0.7-1.2) mg/dl Est GFR ( Amer) Est GFR (Non-Af Amer) POC Glucose (mg/dL) 72 68 (65-110) mg/dL Random Glucose (65-105) mg/dL Hemoglobin A1c (4.2-6.5) % Calcium (8.4-10.2) mg/dL Phosphorus (2.5-4.5) mg/dl Total Bilirubin (0.2-1.3) mg/dl AST (14-36) U/L ALT (9-52) U/L Alkaline Phosphatase (38-126) U/L Lactate Dehydrogenase (313-618) U/L Total Protein (6.3-8.2) G/DL Albumin (3.5-5.0) g/dL Globulin (2.2-3.9) gm/dL Albumin/Globulin Ratio (1.0-2.1) Procalcitonin (0.19-0.49) NG/ML Arterial Blood Potassium (3.6-5.2) mmol/L Vancomycin Trough 12.3 H (5.0-10.0) ug/mL Ur L.pneumophila Ag (NEGATIVE) 07/16/18 07/16/18 07/16/18 Range/Units 21:40 16:50 16:50 WBC (4.8-10.8) K/uL RBC (3.80-5.20) Mil/uL Hgb (12.0-16.0) g/dL Hct (34.0-47.0) % MCV (81.0-99.0) fl MCH (27.0-31.0) pg MCHC (33.0-37.0) g/dL RDW (11.5-14.5) % Plt Count (130-400) K/uL Neutrophils % (Manual) (42-75) % Lymphocytes % (Manual) (20-50) % Monocytes % (Manual) (0-10) % Platelet Estimate (NORMAL) Anisocytosis (manual) Ovalocytes pCO2 (35-45) mm/Hg pO2 (80-100) mm/Hg HCO3 (21-28) mmol/L ABG pH (7.35-7.45) ABG Total CO2 (22-28) mmol/L ABG O2 Saturation (95-98) % ABG O2 Content (15-23) ML/dL ABG Base Excess (-2.0-3.0) mmol/L ABG Hemoglobin (11.7-17.4) g/dL ABG Carboxyhemoglobin (0.5-1.5) % POC ABG HHb (Measured) (0.0-5.0) % ABG Methemoglobin (0.0-3.0) % ABG O2 Capacity (16-24) mL/dL Bob Test ABG Potassium (3.6-5.2) mmol/L A-a O2 Difference mm/Hg Hgb O2 Saturation (95.0-98.0) % Glucose (65-105) mg/dL Lactate (0.7-2.1) mmol/L Liter Flow Vent Mode FiO2 % Sodium (132-148) mmol/l Potassium (3.6-5.0) MMOL/L Chloride (98-107) mmol/L Carbon Dioxide (22-30) mmol/L Anion Gap (10-20) BUN (7-17) mg/dl Creatinine (0.7-1.2) mg/dl Est GFR ( Amer) Est GFR (Non-Af Amer) POC Glucose (mg/dL) 76 85 (65-110) mg/dL Random Glucose (65-105) mg/dL Hemoglobin A1c 5.7 (4.2-6.5) % Calcium (8.4-10.2) mg/dL Phosphorus (2.5-4.5) mg/dl Total Bilirubin (0.2-1.3) mg/dl AST (14-36) U/L ALT (9-52) U/L Alkaline Phosphatase (38-126) U/L Lactate Dehydrogenase (313-618) U/L Total Protein (6.3-8.2) G/DL Albumin (3.5-5.0) g/dL Globulin (2.2-3.9) gm/dL Albumin/Globulin Ratio (1.0-2.1) Procalcitonin (0.19-0.49) NG/ML Arterial Blood Potassium (3.6-5.2) mmol/L Vancomycin Trough (5.0-10.0) ug/mL Ur L.pneumophila Ag (NEGATIVE) 07/16/18 07/16/18 07/16/18 Range/Units 12:22 05:00 04:41 WBC (4.8-10.8) K/uL RBC (3.80-5.20) Mil/uL Hgb (12.0-16.0) g/dL Hct (34.0-47.0) % MCV (81.0-99.0) fl MCH (27.0-31.0) pg MCHC (33.0-37.0) g/dL RDW (11.5-14.5) % Plt Count (130-400) K/uL Neutrophils % (Manual) (42-75) % Lymphocytes % (Manual) (20-50) % Monocytes % (Manual) (0-10) % Platelet Estimate (NORMAL) Anisocytosis (manual) Ovalocytes pCO2 (35-45) mm/Hg pO2 (80-100) mm/Hg HCO3 (21-28) mmol/L ABG pH (7.35-7.45) ABG Total CO2 (22-28) mmol/L ABG O2 Saturation (95-98) % ABG O2 Content (15-23) ML/dL ABG Base Excess (-2.0-3.0) mmol/L ABG Hemoglobin (11.7-17.4) g/dL ABG Carboxyhemoglobin (0.5-1.5) % POC ABG HHb (Measured) (0.0-5.0) % ABG Methemoglobin (0.0-3.0) % ABG O2 Capacity (16-24) mL/dL Bob Test ABG Potassium (3.6-5.2) mmol/L A-a O2 Difference mm/Hg Hgb O2 Saturation (95.0-98.0) % Glucose (65-105) mg/dL Lactate (0.7-2.1) mmol/L Liter Flow Vent Mode FiO2 % Sodium (132-148) mmol/l Potassium (3.6-5.0) MMOL/L Chloride (98-107) mmol/L Carbon Dioxide (22-30) mmol/L Anion Gap (10-20) BUN (7-17) mg/dl Creatinine (0.7-1.2) mg/dl Est GFR ( Amer) Est GFR (Non-Af Amer) POC Glucose (mg/dL) 103 (65-110) mg/dL Random Glucose (65-105) mg/dL Hemoglobin A1c (4.2-6.5) % Calcium (8.4-10.2) mg/dL Phosphorus (2.5-4.5) mg/dl Total Bilirubin (0.2-1.3) mg/dl AST (14-36) U/L ALT (9-52) U/L Alkaline Phosphatase (38-126) U/L Lactate Dehydrogenase (313-618) U/L Total Protein (6.3-8.2) G/DL Albumin (3.5-5.0) g/dL Globulin (2.2-3.9) gm/dL Albumin/Globulin Ratio (1.0-2.1) Procalcitonin 0.18 L (0.19-0.49) NG/ML Arterial Blood Potassium (3.6-5.2) mmol/L Vancomycin Trough (5.0-10.0) ug/mL Ur L.pneumophila Ag Negative (NEGATIVE) 07/16/18 07/16/18 07/16/18 Range/Units 04:41 04:41 04:41 WBC (4.8-10.8) K/uL RBC (3.80-5.20) Mil/uL Hgb (12.0-16.0) g/dL Hct (34.0-47.0) % MCV (81.0-99.0) fl MCH (27.0-31.0) pg MCHC (33.0-37.0) g/dL RDW (11.5-14.5) % Plt Count (130-400) K/uL Neutrophils % (Manual) 84 H (42-75) % Lymphocytes % (Manual) 10 L (20-50) % Monocytes % (Manual) 6 (0-10) % Platelet Estimate Normal (NORMAL) Anisocytosis (manual) Slight Ovalocytes Slight pCO2 27 L (35-45) mm/Hg pO2 54 L (80-100) mm/Hg HCO3 26.4 (21-28) mmol/L ABG pH 7.55 H (7.35-7.45) ABG Total CO2 24.4 (22-28) mmol/L ABG O2 Saturation 90.5 L (95-98) % ABG O2 Content 15.0 (15-23) ML/dL ABG Base Excess 2.1 (-2.0-3.0) mmol/L ABG Hemoglobin 12.0 (11.7-17.4) g/dL ABG Carboxyhemoglobin 1.0 (0.5-1.5) % POC ABG HHb (Measured) 9.3 H (0.0-5.0) % ABG Methemoglobin 1.0 (0.0-3.0) % ABG O2 Capacity 16.6 (16-24) mL/dL Bob Test ABG Potassium (3.6-5.2) mmol/L A-a O2 Difference 269.0 mm/Hg Hgb O2 Saturation 88.7 L (95.0-98.0) % Glucose (65-105) mg/dL Lactate (0.7-2.1) mmol/L Liter Flow 40 Vent Mode Hfnc FiO2 50.0 % Sodium 141 (132-148) mmol/l Potassium 4.2 (3.6-5.0) MMOL/L Chloride 111 H (98-107) mmol/L Carbon Dioxide 24 (22-30) mmol/L Anion Gap 10 (10-20) BUN 25 H (7-17) mg/dl Creatinine 1.2 (0.7-1.2) mg/dl Est GFR ( Amer) 56 Est GFR (Non-Af Amer) 46 POC Glucose (mg/dL) (65-110) mg/dL Random Glucose 142 H (65-105) mg/dL Hemoglobin A1c (4.2-6.5) % Calcium 8.4 (8.4-10.2) mg/dL Phosphorus 3.6 (2.5-4.5) mg/dl Total Bilirubin 0.4 (0.2-1.3) mg/dl AST 36 (14-36) U/L ALT 31 (9-52) U/L Alkaline Phosphatase 73 (38-126) U/L Lactate Dehydrogenase 679 H (313-618) U/L Total Protein 7.2 (6.3-8.2) G/DL Albumin 3.1 L (3.5-5.0) g/dL Globulin 4.1 H (2.2-3.9) gm/dL Albumin/Globulin Ratio 0.8 L (1.0-2.1) Procalcitonin (0.19-0.49) NG/ML Arterial Blood Potassium (3.6-5.2) mmol/L Vancomycin Trough (5.0-10.0) ug/mL Ur L.pneumophila Ag (NEGATIVE) Laboratory Results - last 24 hr 07/16/18 07/16/18 07/16/18 04:41 04:41 04:41 WBC RBC Hgb Hct MCV MCH MCHC RDW Plt Count Neutrophils % (Manual) 84 H Lymphocytes % (Manual) 10 L Monocytes % (Manual) 6 Platelet Estimate Normal Anisocytosis (manual) Slight Ovalocytes Slight pCO2 27 L pO2 54 L HCO3 26.4 ABG pH 7.55 H ABG Total CO2 24.4 ABG O2 Saturation 90.5 L ABG O2 Content 15.0 ABG Base Excess 2.1 ABG Hemoglobin 12.0 ABG Carboxyhemoglobin 1.0 POC ABG HHb (Measured) 9.3 H ABG Methemoglobin 1.0 ABG O2 Capacity 16.6 Bob Test ABG Potassium A-a O2 Difference 269.0 Hgb O2 Saturation 88.7 L Glucose Lactate Liter Flow 40 Vent Mode Hfnc FiO2 50.0 Sodium 141 Potassium 4.2 Chloride 111 H Carbon Dioxide 24 Anion Gap 10 BUN 25 H Creatinine 1.2 Est GFR ( Amer) 56 Est GFR (Non-Af Amer) 46 POC Glucose (mg/dL) Random Glucose 142 H Hemoglobin A1c Calcium 8.4 Phosphorus 3.6 Total Bilirubin 0.4 AST 36 ALT 31 Alkaline Phosphatase 73 Lactate Dehydrogenase 679 H Total Protein 7.2 Albumin 3.1 L Globulin 4.1 H Albumin/Globulin Ratio 0.8 L Procalcitonin Arterial Blood Potassium Vancomycin Trough Ur L.pneumophila Ag 07/16/18 07/16/18 07/16/18 04:41 05:00 12:22 WBC RBC Hgb Hct MCV MCH MCHC RDW Plt Count Neutrophils % (Manual) Lymphocytes % (Manual) Monocytes % (Manual) Platelet Estimate Anisocytosis (manual) Ovalocytes pCO2 pO2 HCO3 ABG pH ABG Total CO2 ABG O2 Saturation ABG O2 Content ABG Base Excess ABG Hemoglobin ABG Carboxyhemoglobin POC ABG HHb (Measured) ABG Methemoglobin ABG O2 Capacity Bob Test ABG Potassium A-a O2 Difference Hgb O2 Saturation Glucose Lactate Liter Flow Vent Mode FiO2 Sodium Potassium Chloride Carbon Dioxide Anion Gap BUN Creatinine Est GFR ( Amer) Est GFR (Non-Af Amer) POC Glucose (mg/dL) 103 Random Glucose Hemoglobin A1c Calcium Phosphorus Total Bilirubin AST ALT Alkaline Phosphatase Lactate Dehydrogenase Total Protein Albumin Globulin Albumin/Globulin Ratio Procalcitonin 0.18 L Arterial Blood Potassium Vancomycin Trough Ur L.pneumophila Ag Negative 07/16/18 07/16/18 07/16/18 16:50 16:50 21:40 WBC RBC Hgb Hct MCV MCH MCHC RDW Plt Count Neutrophils % (Manual) Lymphocytes % (Manual) Monocytes % (Manual) Platelet Estimate Anisocytosis (manual) Ovalocytes pCO2 pO2 HCO3 ABG pH ABG Total CO2 ABG O2 Saturation ABG O2 Content ABG Base Excess ABG Hemoglobin ABG Carboxyhemoglobin POC ABG HHb (Measured) ABG Methemoglobin ABG O2 Capacity Bob Test ABG Potassium A-a O2 Difference Hgb O2 Saturation Glucose Lactate Liter Flow Vent Mode FiO2 Sodium Potassium Chloride Carbon Dioxide Anion Gap BUN Creatinine Est GFR ( Amer) Est GFR (Non-Af Amer) POC Glucose (mg/dL) 85 76 Random Glucose Hemoglobin A1c 5.7 Calcium Phosphorus Total Bilirubin AST ALT Alkaline Phosphatase Lactate Dehydrogenase Total Protein Albumin Globulin Albumin/Globulin Ratio Procalcitonin Arterial Blood Potassium Vancomycin Trough Ur L.pneumophila Ag 07/17/18 07/17/18 07/17/18 02:42 04:17 04:40 WBC RBC Hgb Hct MCV MCH MCHC RDW Plt Count Neutrophils % (Manual) Lymphocytes % (Manual) Monocytes % (Manual) Platelet Estimate Anisocytosis (manual) Ovalocytes pCO2 pO2 HCO3 ABG pH ABG Total CO2 ABG O2 Saturation ABG O2 Content ABG Base Excess ABG Hemoglobin ABG Carboxyhemoglobin POC ABG HHb (Measured) ABG Methemoglobin ABG O2 Capacity Bob Test ABG Potassium A-a O2 Difference Hgb O2 Saturation Glucose Lactate Liter Flow Vent Mode FiO2 Sodium Potassium Chloride Carbon Dioxide Anion Gap BUN Creatinine Est GFR ( Amer) Est GFR (Non-Af Amer) POC Glucose (mg/dL) 68 72 Random Glucose Hemoglobin A1c Calcium Phosphorus Total Bilirubin AST ALT Alkaline Phosphatase Lactate Dehydrogenase Total Protein Albumin Globulin Albumin/Globulin Ratio Procalcitonin Arterial Blood Potassium Vancomycin Trough 12.3 H Ur L.pneumophila Ag 07/17/18 07/17/18 07/17/18 04:40 04:40 04:59 WBC 10.1 D RBC 4.15 Hgb 11.2 L Hct 34.1 MCV 82.2 MCH 27.0 MCHC 32.9 L RDW 17.3 H Plt Count 211 Neutrophils % (Manual) Lymphocytes % (Manual) Monocytes % (Manual) Platelet Estimate Anisocytosis (manual) Ovalocytes pCO2 33 L pO2 77 L HCO3 26.1 ABG pH 7.48 H ABG Total CO2 25.6 ABG O2 Saturation 95.3 ABG O2 Content ABG Base Excess 1.6 ABG Hemoglobin ABG Carboxyhemoglobin POC ABG HHb (Measured) ABG Methemoglobin ABG O2 Capacity Bob Test Yes ABG Potassium 2.9 L A-a O2 Difference 381.0 Hgb O2 Saturation Glucose 79 Lactate 0.6 L Liter Flow Vent Mode High flow lpm FiO2 70.0 Sodium 142 141.0 Potassium 2.8 L Chloride 107 109.0 H Carbon Dioxide 27 Anion Gap 11 BUN 29 H Creatinine 1.4 H Est GFR ( Amer) 47 Est GFR (Non-Af Amer) 39 POC Glucose (mg/dL) Random Glucose 77 Hemoglobin A1c Calcium 8.4 Phosphorus Total Bilirubin 0.6 AST 48 H D ALT 32 Alkaline Phosphatase 81 Lactate Dehydrogenase Total Protein 7.2 Albumin 3.2 L Globulin 4.0 H Albumin/Globulin Ratio 0.8 L Procalcitonin Arterial Blood Potassium 2.9 L Vancomycin Trough Ur L.pneumophila Ag Radiology Impressions: Radiology Impressions Chest X-Ray 07/16/18 09:00 IMPRESSION: ETT and NGT as above. Persistent but improved bibasilar atelectasis and/or infiltrates. Small bilateral effusions right larger than left felt be present.. Fingerstick Blood Sugar Results: 76 Review of Systems - Cardiovascular Cardiovascular: absent: Chest Pain, Chest Pain at Rest, Chest Pain with Activity, Claudication, Diaphoresis - Respiratory Respiratory: absent: Cough, Dyspnea, Hemoptysis, Dyspnea on Exertion, Wheezing, Snoring, Stridor Critical Care Progress Note - Extremities/Vascular Does the Patient have a Central Venous Catheter?: Yes Does the Patient need a Central Venous Catheter?: Yes Does the Patient have a Jimenez Catheter?: No Does the Patient need a Jimenez Catheter?: No Assessment/Plan (1) Cerebrovascular accident (CVA) with right hemiparesis Current Visit: Yes Status: Acute Priority: High Comment: - Continue aspirin - Continue Lipitor 20 mg daily - PT/OT and speech evaluation - Maintain fall and aspiration precaution (2) Aspiration pneumonia Current Visit: Yes Status: Acute Priority: High Comment: Self extubated 07/16 Continue Levaquin and Vancomycin 75 mg twice daily for Influenza viral infection (3) JOE (acute kidney injury) Current Visit: Yes Status: Acute Priority: High (4) Benzodiazepine abuse Current Visit: Yes Status: Chronic Priority: High (5) COPD (chronic obstructive pulmonary disease) Current Visit: No Status: Acute (6) HIV (human immunodeficiency virus infection) Current Visit: Yes Status: Acute (7) Pulmonary hypertension Current Visit: No Status: Suspected - Assessment and Plan (Free Text) Assessment: DVT proph - lovenox GI proph - protonix Code status - full code Critical Care Time spent 45 minutes
[2018-07-17] MEDS: Enoxaparin 30 mg Syringe SC SCH (08:22)
[2018-07-17] MEDS: levoFLOXacin 750 mg in D5W 750 MG/150 ML BAG IVPB SCH (08:22)
[2018-07-17] MEDS: Emtricitabine-Tenofovir 200 mg-300 mg Tab PO SCH ×2 (08:23→12:03)
[2018-07-17] MEDS: Docusate-Senna 50 mg-8.6 mg Tab PO SCH ×3 (08:23→16:26)
[2018-07-17] MEDS: Tmp-Smz 200-40mg/5 ml Oral Sus(120 ml) PO SCH ×3 (08:23→20:20)
[2018-07-17] MEDS ORDERED: Chlorhexidine Gluconate 1 APPL/PKT TP ONE ×2 (08:29→19:32)
[2018-07-17] MEDS ORDERED: Potassium Chl 40mEq & D5W 1,000 ML IV SCH (08:30)
[2018-07-17] MEDS: Insulin Regular 100 units/ml SC SCH ×4 (08:42→22:00)
[2018-07-17] MEDS: Potassium Chloride 20 mEq 100 ML IVPB SCH ×4 (09:58→22:52)
--- NOTE | 2018-07-17 11:48 | CP.PCM.PN ---
Subjective - Date & Time of Evaluation Date of Evaluation: 07/17/18 Time of Evaluation: 11:48 - Subjective Subjective: REFUSING TO KEEP O2 ON AWAKE AND ALERT Objective - Vital Signs/Intake and Output Vital Signs (last 24 hours): Temp Pulse Resp BP Pulse Ox 99 F 96 H 18 159/95 H 96 07/17/18 07:42 07/17/18 07:42 07/17/18 07:59 07/17/18 08:21 07/17/18 07:42 Intake and Output: 07/17/18 07/17/18 06:59 18:59 Intake Total 100 Output Total 2510 Balance -2410 - Medications Medications: Current Medications Acetaminophen (Tylenol 650mg/20.3ml Solution Ud) 650 mg PO Q4H PRN PRN Reason: Temperature Last Admin: 07/13/18 23:42 Dose: 650 mg Albuterol/Ipratropium (Duoneb 3 Mg/0.5 Mg (3 Ml) Ud) 3 ml INH RQ4 [facility] Last Admin: 07/17/18 11:35 Dose: 3 ml Aspirin (Aspirin) 325 mg PO DAILY [facility] Atorvastatin Calcium (Lipitor) 20 mg PO DAILY [facility] Dextrose (Dextrose 50% Inj) 0 ml IV STAT PRN; Protocol PRN Reason: Hypoglycemia Protocol Dextrose (Glutose 15) 0 gm PO ONCE PRN; Protocol PRN Reason: Hypoglycemia Protocol Dolutegravir Sodium (Tivicay) 50 mg PO DAILY [facility]; Protocol Last Admin: 07/17/18 08:23 Dose: Not Given Emtricitabine/Tenofovir (Truvada 200 Mg-300 Mg) 1 tab PO DAILY [facility]; Protocol Last Admin: 07/17/18 08:23 Dose: Not Given Enoxaparin Sodium (Lovenox) 30 mg SC DAILY [facility]; Protocol Last Admin: 07/17/18 08:22 Dose: 30 mg Furosemide (Lasix) 40 mg IVP BID [facility] Stop: 07/17/18 17:01 Last Admin: 07/17/18 08:21 Dose: 40 mg Glucagon (Glucagen Diagnostic Kit) 0 mg IM STAT PRN; Protocol PRN Reason: Hypoglycemia Protocol Acyclovir 500 mg/ Sodium (Chloride) 100 mls @ 100 mls/hr IV Q12H [facility]; Protocol Last Admin: 07/17/18 01:32 Dose: 100 mls/hr Vancomycin HCl 1 gm/ Sodium (Chloride) 250 mls @ 166.667 mls/hr IVPB Q24H [facility]; Protocol Last Admin: 07/16/18 14:42 Dose: 166.667 mls/hr Potassium Chloride (Potassium Chloride 20 Meq/100 Ml) 100 mls @ 50 mls/hr IVPB Q2 [facility] Stop: 07/17/18 13:59 Last Admin: 07/17/18 09:58 Dose: 50 mls/hr Potassium Chloride/Dextrose (Potassium Chl 40 Meq In D5w) 1,000 mls @ 50 mls/hr IV .Q20H [facility] Stop: 07/18/18 08:19 Last Admin: 07/17/18 09:59 Dose: 50 mls/hr Levofloxacin/Dextrose (Levaquin 750mg) 750 mg in 150 mls @ 100 mls/hr IVPB DAILY [facility]; Protocol Insulin Human Regular (Humulin R) 0 units SC ACHS [facility]; Protocol Last Admin: 07/17/18 08:42 Dose: Not Given Lactobacillus Acidophilus (Bacid Acidophilus) 1 cap PO BID [facility] Last Admin: 07/16/18 17:44 Dose: Not Given Lactulose (Enulose) 10 gm PO DAILY PRN PRN Reason: Constipation Last Admin: 07/15/18 12:55 Dose: 10 gm Ondansetron HCl (Zofran Inj) 4 mg IVP Q4 PRN PRN Reason: Nausea/Vomiting Last Admin: 07/16/18 21:00 Dose: 4 mg Pantoprazole Sodium (Protonix Ec Tab) 40 mg PO DAILY [facility] Senna/Docusate Sodium (Senokot S 50 Mg-8.6 Mg) 2 tab PO BID [facility] Last Admin: 07/17/18 08:23 Dose: Not Given Trimethoprim/Sulfamethoxazole (Sulfatrim Pediatric Susp) 20 ml PO Q12 [facility]; Protocol Stop: 08/16/18 08:00 Last Admin: 07/17/18 08:23 Dose: Not Given - Labs Labs: 07/17/18 04:40 07/17/18 04:40 PT 11.5 Seconds (9.8-13.1) 07/11/18 19:12 INR 1.0 07/11/18 19:12 APTT 28.9 Seconds (25.6-37.1) 07/11/18 19:12 - Constitutional Appears: Chronically Ill - Head Exam Head Exam: ATRAUMATIC, NORMAL INSPECTION, NORMOCEPHALIC - Eye Exam Eye Exam: EOMI, Normal appearance, PERRL Pupil Exam: NORMAL ACCOMODATION, PERRL - ENT Exam ENT Exam: Mucous Membranes Moist, Normal Exam - Neck Exam Neck Exam: Full ROM, Normal Inspection. absent: Lymphadenopathy - Respiratory Exam Respiratory Exam: Decreased Breath Sounds, Prolonged Expiratory Phase, Rales, NORMAL BREATHING PATTERN - Cardiovascular Exam Cardiovascular Exam: REGULAR RHYTHM, +S1, +S2. absent: Murmur - GI/Abdominal Exam GI & Abdominal Exam: Soft, Normal Bowel Sounds. absent: Tenderness - Rectal Exam Rectal Exam: NORMAL INSPECTION - Extremities Exam Extremities Exam: Full ROM, Normal Capillary Refill, Normal Inspection. absent: Joint Swelling, Pedal Edema - Back Exam Back Exam: NORMAL INSPECTION - Neurological Exam Neurological Exam: Alert, Awake, CN II-XII Intact, Normal Gait, Oriented x3 - Psychiatric Exam Psychiatric exam: Normal Affect, Normal Mood - Skin Skin Exam: Dry, Intact, Normal Color, Warm Assessment and Plan - Assessment and Plan (Free Text) Assessment: RESPIRATORY FAILURE PNEUMONIA Plan: CONTINUE CURRENT RX
[2018-07-17] MEDS: Pantoprazole 40 mg EC Tab PO SCH (12:11)
--- NOTE | 2018-07-17 13:42 | CP.PCM.PN ---
<Yvonne Dexter - Last Filed: 07/17/18 15:18> Subjective - Date & Time of Evaluation Date of Evaluation: 07/17/18 Time of Evaluation: 07:30 - Subjective Subjective: 58-year-old female seen and examined this morning bedside on high-flow oxygen (self-extubated yesterday 07/16) sitting up in bed. Patient awake, alert, afebrile and able to follow simple commands and smiled but did not speak. Unable to move right extremities. Does not appear to be in any acute distress. Objective - Vital Signs/Intake and Output Vital Signs (last 24 hours): Temp Pulse Resp BP Pulse Ox 98.9 F 100 H 41 H 127/74 92 L 07/17/18 12:00 07/17/18 12:00 07/17/18 12:00 07/17/18 12:00 07/17/18 12:00 Intake and Output: 07/17/18 07/17/18 06:59 18:59 Intake Total 100 300 Output Total 2510 950 Balance -2410 -650 - Medications Medications: Current Medications Acetaminophen (Tylenol 650mg/20.3ml Solution Ud) 650 mg PO Q4H PRN PRN Reason: Temperature Last Admin: 07/13/18 23:42 Dose: 650 mg Albuterol/Ipratropium (Duoneb 3 Mg/0.5 Mg (3 Ml) Ud) 3 ml INH RQ4 [facility] Last Admin: 07/17/18 11:35 Dose: 3 ml Aspirin (Aspirin) 325 mg PO DAILY [facility] Last Admin: 07/17/18 12:11 Dose: Not Given Atorvastatin Calcium (Lipitor) 20 mg PO DAILY@2200 [facility] Dextrose (Dextrose 50% Inj) 0 ml IV STAT PRN; Protocol PRN Reason: Hypoglycemia Protocol Dextrose (Glutose 15) 0 gm PO ONCE PRN; Protocol PRN Reason: Hypoglycemia Protocol Dolutegravir Sodium (Tivicay) 50 mg PO DAILY [facility]; Protocol Last Admin: 07/17/18 08:23 Dose: Not Given Emtricitabine/Tenofovir (Truvada 200 Mg-300 Mg) 1 tab PO DAILY [facility]; Protocol Last Admin: 07/17/18 12:03 Dose: 1 tab Enoxaparin Sodium (Lovenox) 30 mg SC DAILY [facility]; Protocol Last Admin: 07/17/18 08:22 Dose: 30 mg Furosemide (Lasix) 40 mg IVP BID [facility] Stop: 07/17/18 17:01 Last Admin: 07/17/18 08:21 Dose: 40 mg Glucagon (Glucagen Diagnostic Kit) 0 mg IM STAT PRN; Protocol PRN Reason: Hypoglycemia Protocol Guaifenesin/Dextromethorphan (Mucinex-Dm 600-30 Mg) 2 tab PO BID [facility] Acyclovir 500 mg/ Sodium (Chloride) 100 mls @ 100 mls/hr IV Q12H [facility]; Protocol Last Admin: 07/17/18 13:07 Dose: 100 mls/hr Vancomycin HCl 1 gm/ Sodium (Chloride) 250 mls @ 166.667 mls/hr IVPB Q24H [facility]; Protocol Last Admin: 07/17/18 13:08 Dose: 166.667 mls/hr Potassium Chloride (Potassium Chloride 20 Meq/100 Ml) 100 mls @ 50 mls/hr IVPB Q2 [facility] Stop: 07/17/18 13:59 Last Admin: 07/17/18 12:03 Dose: 50 mls/hr Potassium Chloride/Dextrose (Potassium Chl 40 Meq In D5w) 1,000 mls @ 50 mls/hr IV .Q20H [facility] Stop: 07/18/18 08:19 Last Admin: 07/17/18 09:59 Dose: 50 mls/hr Levofloxacin/Dextrose (Levaquin 750mg) 750 mg in 150 mls @ 100 mls/hr IVPB DAILY [facility]; Protocol Insulin Human Regular (Humulin R) 0 units SC ACHS [facility]; Protocol Last Admin: 07/17/18 12:11 Dose: Not Given Lactobacillus Acidophilus (Bacid Acidophilus) 1 cap PO BID [facility] Last Admin: 07/16/18 17:44 Dose: Not Given Lactulose (Enulose) 10 gm PO DAILY PRN PRN Reason: Constipation Last Admin: 07/15/18 12:55 Dose: 10 gm Ondansetron HCl (Zofran Inj) 4 mg IVP Q4 PRN PRN Reason: Nausea/Vomiting Last Admin: 07/16/18 21:00 Dose: 4 mg Pantoprazole Sodium (Protonix Ec Tab) 40 mg PO DAILY [facility] Last Admin: 07/17/18 12:11 Dose: Not Given Senna/Docusate Sodium (Senokot S 50 Mg-8.6 Mg) 2 tab PO BID [facility] Last Admin: 07/17/18 08:23 Dose: Not Given Trimethoprim/Sulfamethoxazole (Sulfatrim Pediatric Susp) 20 ml PO Q12 [facility]; Protocol Stop: 08/16/18 08:00 Last Admin: 07/17/18 08:23 Dose: Not Given - Labs Labs: 07/17/18 04:40 07/17/18 04:40 PT 11.5 Seconds (9.8-13.1) 07/11/18 19:12 INR 1.0 07/11/18 19:12 APTT 28.9 Seconds (25.6-37.1) 07/11/18 19:12 - Constitutional Appears: Chronically Ill - Head Exam Head Exam: ATRAUMATIC - ENT Exam ENT Exam: Mucous Membranes Moist - Neck Exam Neck Exam: Full ROM - Respiratory Exam Respiratory Exam: Rhonchi, NORMAL BREATHING PATTERN. absent: Decreased Breath Sounds - Cardiovascular Exam Cardiovascular Exam: Tachycardia, +S1, +S2 - GI/Abdominal Exam GI & Abdominal Exam: Distended. absent: Guarding, Tenderness - Neurological Exam Neurological Exam: Alert, Awake Neuro motor strength exam: Left Upper Extremity: 3, Right Upper Extremity: 0, Left Lower Extremity: 4, Right Lower Extremity: 0 Additional comments: can follow simple commands, smiles but non-verbal Assessment and Plan - Assessment and Plan (Free Text) Plan: Acute ischemic stroke CVA with R hemiparesis - MRI Brain (07/11): multifocal late acute/early subacte infarctions in L posterior parietal lobe, late acute/early subacute infarctions in L posterior parietal lobe, increased FLAIR hyperintensity in L cortical sulci (possibly subarachnoid hemorrhage, non-specific proteinaceous hyperintense CSF) - Video EEG monitoring as per Neurology, finished (Dr Dennis 07/17): VEEG showed slowing, but no seizures. - Lasix 40 BID - Atorvastatin 20 mg PO 07/13-07/15 - Aspirin 325mg PO daily 07/14-07/16 - Aspirin 300mg supp 07/17 Acute Respiratory failure - Likely secondary to Pneumonia - Self-extubated yesterday, 07/16 - ABG reviewed - blood gas acceptable PO2 77 @ 70 FiO2 - As per nurse pt often removes oxygen and sats drop to upper 80's - As per pulmonology (Dr. Stahl 07/17/18): Refusing to keep O2 on, awake and alert, continue current rx Abdominal distention - Head CT (07/17/17): pending final results - CXR (07/16): fluid overload; lasix 40 mg IVP BID Toxic metabolic encephalopathy - Likely secondary to CVA, drug use, seizure - Urine screen positive for opiates and bezodiazepines - Seizure precautions - Laculose 10 gm daily PRN, last administered 07/15/18 - As per neurology (Dr Dennis 07/17/18): 58 yr old woman with encephalopathy, and possible new stroke. VEEG showed slowing, but no seizures. Neuro exam unchanged. not following commands, moving all extremities. +2 dtr ul and ll bl. Toes downgoing. No clonus. Feeding - Passed swallow eval (07/17), started on puree diet with thick nectar Influenza A viral infection - Afebrile, WBC wnl (10.1) - S/p 5 day course of Tamiflu 75mg - Contact precautions - ID consult, Dr Velazco Community acquired Pneumonia - Afebrile, no white count, lactate 0.9 - ID consult, Dr Velazco. consider HERMILA when feasible to r/o vegetation, clot, other - Levaquin 750 mg IV advanced to Q24H, renal function improving (previously Q48H began 07/13) - Vancomycin 1gm Q24H, 3 doses thus far, vanc trough 07/17/18: 12.3 - CXR (07/16): fluid overload; lasix 40 mg IVP BID - Duoneb Q4H Acute renal injury - Dehydration improving, CPK 800 therefor rhabdomyolysis not likely the cause of JOE - Improving - Continue IVF Hypokalemia - 2.8 today (07/17) from 4.2 (07/16) yesterday - s/p KCl 40 mEq & D5W - Follow up CMP HIV - HAART resumed (Tivicay 50mg daily and Truvada 200mg-300mg daily) - CD4 = 135 - Screen for oportunistic infections - Acyclovir 500mg Q12H and Bactrim 20 ml Q12H for prophylaxis - ID consult, Dr Velazco. Will follow recs Elevated troponins - 07/02/18: 3.5100, 3.6000, 3.1800 - As per cardiology (Dr Zahra Guevara 07/12): altered mental status probably secondary to drug over Dose. acute kidney injury with elevated troponin levels probably secondary to rhabdomyolysis. At this juncture the patient is hemodynamically stable. - Probably secondary to rhabdomyolysis - CPK serum levels (07/11: 1062, 07/12: 1332, 07/12: 1359, 07/13: 838) Chronic hepatitis C - Chronic - HCV viral load pending final result - ID consult, Dr Velazco Prophylaxis - Lovenox 30mg daily <Mikala Guzman - Last Filed: 07/17/18 15:46> Objective - Vital Signs/Intake and Output Vital Signs (last 24 hours): Temp Pulse Resp BP Pulse Ox 98.9 F 110 H 30 H 136/87 92 L 07/17/18 12:00 07/17/18 14:00 07/17/18 15:09 07/17/18 14:00 07/17/18 14:00 Intake and Output: 07/17/18 07/17/18 06:59 18:59 Intake Total 100 750 Output Total 2510 950 Balance -2410 -200 - Medications Medications: Current Medications Acetaminophen (Tylenol 650mg/20.3ml Solution Ud) 650 mg PO Q4H PRN PRN Reason: Temperature Last Admin: 07/13/18 23:42 Dose: 650 mg Albuterol/Ipratropium (Duoneb 3 Mg/0.5 Mg (3 Ml) Ud) 3 ml INH RQ4 [facility] Last Admin: 07/17/18 15:09 Dose: 3 ml Aspirin (Aspirin) 325 mg PO DAILY [facility] Last Admin: 07/17/18 12:11 Dose: Not Given Atorvastatin Calcium (Lipitor) 20 mg PO DAILY@2200 [facility] Dextrose (Dextrose 50% Inj) 0 ml IV STAT PRN; Protocol PRN Reason: Hypoglycemia Protocol Dextrose (Glutose 15) 0 gm PO ONCE PRN; Protocol PRN Reason: Hypoglycemia Protocol Dolutegravir Sodium (Tivicay) 50 mg PO DAILY [facility]; Protocol Last Admin: 07/17/18 08:23 Dose: Not Given Emtricitabine/Tenofovir (Truvada 200 Mg-300 Mg) 1 tab PO DAILY [facility]; Protocol Last Admin: 07/17/18 12:03 Dose: 1 tab Enoxaparin Sodium (Lovenox) 30 mg SC DAILY [facility]; Protocol Last Admin: 07/17/18 08:22 Dose: 30 mg Furosemide (Lasix) 40 mg IVP BID [facility] Stop: 07/17/18 17:01 Last Admin: 07/17/18 08:21 Dose: 40 mg Glucagon (Glucagen Diagnostic Kit) 0 mg IM STAT PRN; Protocol PRN Reason: Hypoglycemia Protocol Guaifenesin/Dextromethorphan (Mucinex-Dm 600-30 Mg) 2 tab PO BID [facility] Acyclovir 500 mg/ Sodium (Chloride) 100 mls @ 100 mls/hr IV Q12H [facility]; Protocol Last Admin: 07/17/18 13:07 Dose: 100 mls/hr Vancomycin HCl 1 gm/ Sodium (Chloride) 250 mls @ 166.667 mls/hr IVPB Q24H [facility]; Protocol Last Admin: 07/17/18 13:08 Dose: 166.667 mls/hr Potassium Chloride/Dextrose (Potassium Chl 40 Meq In D5w) 1,000 mls @ 50 mls/hr IV .Q20H [facility] Stop: 07/18/18 08:19 Last Admin: 07/17/18 09:59 Dose: 50 mls/hr Levofloxacin/Dextrose (Levaquin 750mg) 750 mg in 150 mls @ 100 mls/hr IVPB DAILY [facility]; Protocol Insulin Human Regular (Humulin R) 0 units SC ACHS [facility]; Protocol Last Admin: 07/17/18 12:11 Dose: Not Given Lactobacillus Acidophilus (Bacid Acidophilus) 1 cap PO BID [facility] Last Admin: 07/16/18 17:44 Dose: Not Given Lactulose (Enulose) 10 gm PO DAILY PRN PRN Reason: Constipation Last Admin: 07/15/18 12:55 Dose: 10 gm Lactulose (Enulose) 20 gm PO STAT [facility] Stop: 07/17/18 15:44 Ondansetron HCl (Zofran Inj) 4 mg IVP Q4 PRN PRN Reason: Nausea/Vomiting Last Admin: 07/16/18 21:00 Dose: 4 mg Pantoprazole Sodium (Protonix Ec Tab) 40 mg PO DAILY [facility] Last Admin: 07/17/18 12:11 Dose: Not Given Senna/Docusate Sodium (Senokot S 50 Mg-8.6 Mg) 2 tab PO BID [facility] Last Admin: 07/17/18 08:23 Dose: Not Given Trimethoprim/Sulfamethoxazole (Sulfatrim Pediatric Susp) 20 ml PO Q12 [facility]; Protocol Stop: 08/16/18 08:00 Last Admin: 07/17/18 08:23 Dose: Not Given - Labs Labs: 07/17/18 04:40 07/17/18 04:40 PT 11.5 Seconds (9.8-13.1) 07/11/18 19:12 INR 1.0 07/11/18 19:12 APTT 28.9 Seconds (25.6-37.1) 07/11/18 19:12 Attending/Attestation - Attestation I have personally seen and examined this patient.: Yes I have fully participated in the care of the patient.: Yes I have reviewed all pertinent clinical information, including history, physical exam and plan: Yes
--- NOTE | 2018-07-17 13:42 | CP.PCM.PN ---
Subjective - Date & Time of Evaluation Date of Evaluation: 07/17/18 Time of Evaluation: 13:15 - Subjective Subjective: Patient is intubated and moving all extremities. CT head completed, no stroke appreciated. On exam: Neuro exam unchanged. not following commands, moving all extremities. +2 dtr ul and ll bl. Toes downgoing. No clonus. Objective - Vital Signs/Intake and Output Vital Signs (last 24 hours): Temp Pulse Resp BP Pulse Ox 98.9 F 100 H 41 H 127/74 92 L 07/17/18 12:00 07/17/18 12:00 07/17/18 12:00 07/17/18 12:00 07/17/18 12:00 Intake and Output: 07/17/18 07/17/18 06:59 18:59 Intake Total 100 300 Output Total 2510 950 Balance -2410 -650 - Medications Medications: Current Medications Acetaminophen (Tylenol 650mg/20.3ml Solution Ud) 650 mg PO Q4H PRN PRN Reason: Temperature Last Admin: 07/13/18 23:42 Dose: 650 mg Albuterol/Ipratropium (Duoneb 3 Mg/0.5 Mg (3 Ml) Ud) 3 ml INH RQ4 [facility] Last Admin: 07/17/18 11:35 Dose: 3 ml Aspirin (Aspirin) 325 mg PO DAILY [facility] Last Admin: 07/17/18 12:11 Dose: Not Given Atorvastatin Calcium (Lipitor) 20 mg PO DAILY@2200 [facility] Dextrose (Dextrose 50% Inj) 0 ml IV STAT PRN; Protocol PRN Reason: Hypoglycemia Protocol Dextrose (Glutose 15) 0 gm PO ONCE PRN; Protocol PRN Reason: Hypoglycemia Protocol Dolutegravir Sodium (Tivicay) 50 mg PO DAILY [facility]; Protocol Last Admin: 07/17/18 08:23 Dose: Not Given Emtricitabine/Tenofovir (Truvada 200 Mg-300 Mg) 1 tab PO DAILY [facility]; Protocol Last Admin: 07/17/18 12:03 Dose: 1 tab Enoxaparin Sodium (Lovenox) 30 mg SC DAILY [facility]; Protocol Last Admin: 07/17/18 08:22 Dose: 30 mg Furosemide (Lasix) 40 mg IVP BID [facility] Stop: 07/17/18 17:01 Last Admin: 07/17/18 08:21 Dose: 40 mg Glucagon (Glucagen Diagnostic Kit) 0 mg IM STAT PRN; Protocol PRN Reason: Hypoglycemia Protocol Guaifenesin/Dextromethorphan (Mucinex-Dm 600-30 Mg) 2 tab PO BID [facility] Acyclovir 500 mg/ Sodium (Chloride) 100 mls @ 100 mls/hr IV Q12H [facility]; Protocol Last Admin: 07/17/18 13:07 Dose: 100 mls/hr Vancomycin HCl 1 gm/ Sodium (Chloride) 250 mls @ 166.667 mls/hr IVPB Q24H [facility]; Protocol Last Admin: 07/17/18 13:08 Dose: 166.667 mls/hr Potassium Chloride (Potassium Chloride 20 Meq/100 Ml) 100 mls @ 50 mls/hr IVPB Q2 [facility] Stop: 07/17/18 13:59 Last Admin: 07/17/18 12:03 Dose: 50 mls/hr Potassium Chloride/Dextrose (Potassium Chl 40 Meq In D5w) 1,000 mls @ 50 mls/hr IV .Q20H [facility] Stop: 07/18/18 08:19 Last Admin: 07/17/18 09:59 Dose: 50 mls/hr Levofloxacin/Dextrose (Levaquin 750mg) 750 mg in 150 mls @ 100 mls/hr IVPB DAILY [facility]; Protocol Insulin Human Regular (Humulin R) 0 units SC ACHS [facility]; Protocol Last Admin: 07/17/18 12:11 Dose: Not Given Lactobacillus Acidophilus (Bacid Acidophilus) 1 cap PO BID [facility] Last Admin: 07/16/18 17:44 Dose: Not Given Lactulose (Enulose) 10 gm PO DAILY PRN PRN Reason: Constipation Last Admin: 07/15/18 12:55 Dose: 10 gm Ondansetron HCl (Zofran Inj) 4 mg IVP Q4 PRN PRN Reason: Nausea/Vomiting Last Admin: 07/16/18 21:00 Dose: 4 mg Pantoprazole Sodium (Protonix Ec Tab) 40 mg PO DAILY [facility] Last Admin: 07/17/18 12:11 Dose: Not Given Senna/Docusate Sodium (Senokot S 50 Mg-8.6 Mg) 2 tab PO BID [facility] Last Admin: 07/17/18 08:23 Dose: Not Given Trimethoprim/Sulfamethoxazole (Sulfatrim Pediatric Susp) 20 ml PO Q12 [facility]; Protocol Stop: 08/16/18 08:00 Last Admin: 07/17/18 08:23 Dose: Not Given - Labs Labs: 07/17/18 04:40 07/17/18 04:40 PT 11.5 Seconds (9.8-13.1) 07/11/18 19:12 INR 1.0 07/11/18 19:12 APTT 28.9 Seconds (25.6-37.1) 07/11/18 19:12 Assessment and Plan - Assessment and Plan (Free Text) Assessment: 58 yr old woman with encephalopathy, and possible new stroke. VEEG showed slowing, but no seizures. Plan: 1. MRI BRain needed 2. Continue attempts to extubate Our team will follow DR. Dennis
--- NOTE | 2018-07-17 15:02 | CT ---
Date of service: 07/17/2018 PROCEDURE: CT HEAD WITHOUT CONTRAST. HISTORY: re-eval infarct; r/o hemorrhagic conversion COMPARISON: Comparison made with CT scan brain 07/11/2018 and MRI brain 07/12/2018. TECHNIQUE: Axial computed tomography images were obtained through the head/brain without intravenous contrast. Radiation dose: Total exam DLP = 869.47 mGy-cm. This CT exam was performed using one or more of the following dose reduction techniques: Automated exposure control, adjustment of the mA and/or kV according to patient size, and/or use of iterative reconstruction technique. FINDINGS: This study is limited by motion artifact HEMORRHAGE: There is a small elliptical shaped hemorrhage within the left external capsule region. Subacute infarcts BRAIN: Subacute infarct changes in the left posterior temporoparietal region less well seen on this CT scan as compared to high-resolution MRI. VENTRICLES: No obstructive hydrocephalus. CALVARIUM: Unremarkable. PARANASAL SINUSES: Redemonstrated is complete opacification of diminutive appearing right maxillary antrum with what could represent focal sinus atelectasis (silent sinus) represent. Mild mucosal thickening left maxillary antrum ethmoid air complex extending and right chamber of the sphenoid sinus. MASTOID AIR CELLS: Unremarkable as visualized. No inflammatory changes. OTHER FINDINGS: None. IMPRESSION: Limited motion degraded study. Small elliptical shaped hemorrhage left external capsule. Subacute infarct changes in the left posterior temporal and posterior frontoparietal region less well seen on this exam it compared to high-resolution MRI.
[2018-07-17] MEDS ORDERED: Mineral Oil Enema 135 ml PR ONE (15:53)
[2018-07-17] MEDS: guaiFENesin-DM 600-30 mg ER Tab PO SCH (16:11)
--- NOTE | 2018-07-17 18:03 | RAD ---
Date of service: 07/17/2018 HISTORY: abd distention COMPARISON: None available. FINDINGS: BOWEL: Multiple mildly distended air-filled loops of small bowel with air throughout the colon. Findings likely represent a generalized ileus. There also appears to be a large amount of stool in the right and rectosigmoid consistent with with fecal retention/constipation BONES: Normal. OTHER FINDINGS: None. IMPRESSION: Multiple mildly distended air-filled loops of small bowel with air throughout the colon. Findings likely represent a generalized ileus. There also appears to be a large amount of stool in the right and rectosigmoid consistent with with fecal retention/constipation
[2018-07-17 18:28] LABS: ALB/GLOB RATIO 0.8 (1.0-2.1); ALBUMIN 3.5 g/dL (3.5-5.0); CALCIUM 8.6 mg/dL (8.4-10.2)
[2018-07-17] MEDS ORDERED: Potassium Chloride 20 mEq/15 ml LIQ UD PO ONE (19:31)
[2018-07-18] MEDS: Acyclovir 500 MG in Sodium Chloride 0.9% 100 ML IV SCH (01:28)
[2018-07-18] MEDS: Albuterol-Ipratrop 3 mg / 0.5 (3 ml) UD INH SCH ×6 (03:19→23:53)
[2018-07-18 05:14] LABS: HEMOGLOBIN 11.4 g/dL (12.0-16.0); MEAN CELL VOLUME 82.6 fl (81.0-99.0); MEAN CORPUSCULAR HEMOGLOBIN 26.9 pg (27.0-31.0); MEAN CORPUSCULAR HGB CONC 32.5 g/dL (33.0-37.0); RBC 4.24 Mil/uL (3.80-5.20); RED CELL DISTRIBUTION WIDTH 17.1 % (11.5-14.5); WHITE BLOOD COUNT 7.7 K/uL (4.8-10.8)
[2018-07-18 05:28] LABS: CALCIUM 8.4 mg/dL (8.4-10.2)
[2018-07-18 05:31] LABS: ABG ALLEN TEST YES; ARTERIAL BLOOD GAS HCO3 29.3 mmol/L (21-28); ARTERIAL BLOOD GAS O2 SAT 93.2 % (95-98); ARTERIAL BLOOD GAS PCO2 40 mm/Hg (35-45); ARTERIAL BLOOD GAS PH 7.48 (7.35-7.45); ARTERIAL BLOOD GAS PO2 64 mm/Hg (80-100)
[2018-07-18] MEDS: Insulin Regular 100 units/ml SC SCH ×4 (07:23→22:25)
[2018-07-18] MEDS ORDERED: Potassium Chloride 20 mEq ER Tab PO ONE (08:16)
[2018-07-18] MEDS ORDERED: Magnesium Oxide 400 mg Tab UD PO ONE (08:17)
[2018-07-18] MEDS: Enoxaparin 30 mg Syringe SC SCH (08:26)
[2018-07-18] MEDS: Pantoprazole 40 mg EC Tab PO SCH (08:26)
[2018-07-18] MEDS: guaiFENesin-DM 600-30 mg ER Tab PO SCH ×2 (08:26→16:33)
[2018-07-18] MEDS: Tmp-Smz 200-40mg/5 ml Oral Sus(120 ml) PO SCH ×2 (08:27→20:22)
--- NOTE | 2018-07-18 08:28 | CP.PCM.PN ---
Subjective - Date & Time of Evaluation Date of Evaluation: 07/18/18 Time of Evaluation: 08:30 - Subjective Subjective: MORE RESPONSIVE TODAY O2 SAT IMPROVED--94% ON NC O2 R ARM WEAKNESS PERSISTS SOB IMPROVING Objective - Vital Signs/Intake and Output Vital Signs (last 24 hours): Temp Pulse Resp BP Pulse Ox 98.9 F 86 36 H 148/96 H 94 L 07/18/18 04:00 07/18/18 06:00 07/18/18 06:00 07/18/18 06:00 07/18/18 06:00 Intake and Output: 07/18/18 07/18/18 06:59 18:59 Intake Total 925 Balance 925 - Medications Medications: Current Medications Acetaminophen (Tylenol 650mg/20.3ml Solution Ud) 650 mg PO Q4H PRN PRN Reason: Temperature Last Admin: 07/13/18 23:42 Dose: 650 mg Albuterol/Ipratropium (Duoneb 3 Mg/0.5 Mg (3 Ml) Ud) 3 ml INH RQ4 [facility] Last Admin: 07/18/18 07:23 Dose: 3 ml Aspirin (Aspirin) 325 mg PO DAILY [facility] Last Admin: 07/17/18 12:11 Dose: Not Given Atorvastatin Calcium (Lipitor) 20 mg PO DAILY@2200 [facility] Last Admin: 07/17/18 22:53 Dose: 20 mg Dextrose (Dextrose 50% Inj) 0 ml IV STAT PRN; Protocol PRN Reason: Hypoglycemia Protocol Dextrose (Glutose 15) 0 gm PO ONCE PRN; Protocol PRN Reason: Hypoglycemia Protocol Dolutegravir Sodium (Tivicay) 50 mg PO DAILY [facility]; Protocol Last Admin: 07/17/18 13:05 Dose: 50 mg Emtricitabine/Tenofovir (Truvada 200 Mg-300 Mg) 1 tab PO DAILY [facility]; Protocol Last Admin: 07/17/18 12:03 Dose: 1 tab Enoxaparin Sodium (Lovenox) 30 mg SC DAILY [facility]; Protocol Last Admin: 07/17/18 08:22 Dose: 30 mg Glucagon (Glucagen Diagnostic Kit) 0 mg IM STAT PRN; Protocol PRN Reason: Hypoglycemia Protocol Guaifenesin/Dextromethorphan (Mucinex-Dm 600-30 Mg) 2 tab PO BID [facility] Last Admin: 07/17/18 16:11 Dose: 2 tab Acyclovir 500 mg/ Sodium (Chloride) 100 mls @ 100 mls/hr IV Q12H [facility]; Protocol Last Admin: 07/18/18 01:28 Dose: 100 mls/hr Vancomycin HCl 1 gm/ Sodium (Chloride) 250 mls @ 166.667 mls/hr IVPB Q24H [facility]; Protocol Last Admin: 07/17/18 13:08 Dose: 166.667 mls/hr Levofloxacin/Dextrose (Levaquin 750mg) 750 mg in 150 mls @ 100 mls/hr IVPB DAILY [facility]; Protocol Insulin Human Regular (Humulin R) 0 units SC ACHS [facility]; Protocol Last Admin: 07/18/18 07:23 Dose: Not Given Lactobacillus Acidophilus (Bacid Acidophilus) 1 cap PO BID [facility] Last Admin: 07/16/18 17:44 Dose: Not Given Lactulose (Enulose) 10 gm PO DAILY PRN PRN Reason: Constipation Last Admin: 07/15/18 12:55 Dose: 10 gm Magnesium Oxide (Mag-Ox) 400 mg PO BID [facility] Ondansetron HCl (Zofran Inj) 4 mg IVP Q4 PRN PRN Reason: Nausea/Vomiting Last Admin: 07/18/18 03:15 Dose: 4 mg Pantoprazole Sodium (Protonix Ec Tab) 40 mg PO DAILY [facility] Last Admin: 07/17/18 12:11 Dose: Not Given Senna/Docusate Sodium (Senokot S 50 Mg-8.6 Mg) 2 tab PO BID [facility] Last Admin: 07/17/18 16:26 Dose: Not Given Trimethoprim/Sulfamethoxazole (Sulfatrim Pediatric Susp) 20 ml PO Q12 [facility]; Protocol Stop: 08/16/18 08:00 Last Admin: 07/17/18 20:20 Dose: Not Given - Labs Labs: 07/18/18 04:25 07/18/18 04:25 PT 11.5 Seconds (9.8-13.1) 07/11/18 19:12 INR 1.0 07/11/18 19:12 APTT 28.9 Seconds (25.6-37.1) 07/11/18 19:12 - Constitutional Appears: Chronically Ill - Head Exam Head Exam: ATRAUMATIC, NORMAL INSPECTION, NORMOCEPHALIC - Eye Exam Eye Exam: EOMI, Normal appearance, PERRL Pupil Exam: NORMAL ACCOMODATION, PERRL - ENT Exam ENT Exam: Mucous Membranes Moist, Normal Exam - Neck Exam Neck Exam: Full ROM, Normal Inspection. absent: Lymphadenopathy - Respiratory Exam Respiratory Exam: Prolonged Expiratory Phase, Rales, NORMAL BREATHING PATTERN - Cardiovascular Exam Cardiovascular Exam: REGULAR RHYTHM, +S1, +S2. absent: Murmur - GI/Abdominal Exam GI & Abdominal Exam: Soft, Normal Bowel Sounds. absent: Tenderness - Rectal Exam Rectal Exam: NORMAL INSPECTION - Extremities Exam Extremities Exam: Full ROM, Normal Capillary Refill, Normal Inspection. absent: Joint Swelling, Pedal Edema - Back Exam Back Exam: NORMAL INSPECTION - Neurological Exam Neurological Exam: Alert, Awake, CN II-XII Intact Additional comments: R ARM WEAKNESS - Psychiatric Exam Psychiatric exam: Normal Affect, Normal Mood - Skin Skin Exam: Dry, Intact, Normal Color, Warm Assessment and Plan - Assessment and Plan (Free Text) Assessment: CVA RESPIRATORY FAILURE--IMPROVING Plan: CONTINUE CURRENT RX
[2018-07-18] MEDS: Emtricitabine-Tenofovir 200 mg-300 mg Tab PO SCH (08:29)
[2018-07-18] MEDS: Lactobacillus Acidophilus 500 MU Cap PO SCH ×2 (08:33→17:58)
[2018-07-18] MEDS: levoFLOXacin 750 mg in D5W 750 MG/150 ML BAG IVPB SCH (08:36)
[2018-07-18] MEDS: Docusate-Senna 50 mg-8.6 mg Tab PO SCH ×2 (08:38→16:32)
--- NOTE | 2018-07-18 11:15 | CP.PCM.PN ---
Subjective - Date & Time of Evaluation Date of Evaluation: 07/18/18 Time of Evaluation: 10:54 - Subjective Subjective: Neurology Follow-Up Note: Mrs. Kilgore was evaluated this morning in the ICU OOB in a chair. She remains extubated. She is able to follows simple commands. Pt has no complaints today. She is asking to be d/c home; I discussed with her the reasons for her hospitalization and need for further hospital treatment and rehab. She denies h/a, dizziness, visual changes, chest pain, palpitation, sob, n/v/d. Objective - Vital Signs/Intake and Output Vital Signs (last 24 hours): Temp Pulse Resp BP Pulse Ox 98.1 F 98 H 32 H 134/73 96 07/18/18 08:00 07/18/18 10:00 07/18/18 10:00 07/18/18 10:00 07/18/18 10:00 Intake and Output: 07/18/18 07/18/18 06:59 18:59 Intake Total 925 242 Balance 925 242 - Medications Medications: Current Medications Acetaminophen (Tylenol 650mg/20.3ml Solution Ud) 650 mg PO Q4H PRN PRN Reason: Temperature Last Admin: 07/13/18 23:42 Dose: 650 mg Albuterol/Ipratropium (Duoneb 3 Mg/0.5 Mg (3 Ml) Ud) 3 ml INH RQ4 [facility] Last Admin: 07/18/18 07:23 Dose: 3 ml Aspirin (Aspirin) 325 mg PO DAILY [facility] Last Admin: 07/18/18 08:33 Dose: 325 mg Atorvastatin Calcium (Lipitor) 20 mg PO DAILY@2200 [facility] Last Admin: 07/17/18 22:53 Dose: 20 mg Dextrose (Dextrose 50% Inj) 0 ml IV STAT PRN; Protocol PRN Reason: Hypoglycemia Protocol Dextrose (Glutose 15) 0 gm PO ONCE PRN; Protocol PRN Reason: Hypoglycemia Protocol Dolutegravir Sodium (Tivicay) 50 mg PO DAILY [facility]; Protocol Last Admin: 07/18/18 08:28 Dose: 50 mg Emtricitabine/Tenofovir (Truvada 200 Mg-300 Mg) 1 tab PO DAILY [facility]; Protocol Last Admin: 07/18/18 08:29 Dose: 1 tab Enoxaparin Sodium (Lovenox) 30 mg SC DAILY [facility]; Protocol Last Admin: 07/18/18 08:26 Dose: 30 mg Glucagon (Glucagen Diagnostic Kit) 0 mg IM STAT PRN; Protocol PRN Reason: Hypoglycemia Protocol Guaifenesin/Dextromethorphan (Mucinex-Dm 600-30 Mg) 2 tab PO BID [facility] Last Admin: 07/18/18 08:26 Dose: 2 tab Acyclovir 500 mg/ Sodium (Chloride) 100 mls @ 100 mls/hr IV Q12H [facility]; Protocol Last Admin: 07/18/18 01:28 Dose: 100 mls/hr Vancomycin HCl 1 gm/ Sodium (Chloride) 250 mls @ 166.667 mls/hr IVPB Q24H [facility]; Protocol Last Admin: 07/17/18 13:08 Dose: 166.667 mls/hr Levofloxacin/Dextrose (Levaquin 750mg) 750 mg in 150 mls @ 100 mls/hr IVPB DAILY [facility]; Protocol Last Admin: 07/18/18 08:36 Dose: 100 mls/hr Insulin Human Regular (Humulin R) 0 units SC ACHS [facility]; Protocol Last Admin: 07/18/18 07:23 Dose: Not Given Lactobacillus Acidophilus (Bacid Acidophilus) 1 cap PO BID [facility] Last Admin: 07/18/18 08:33 Dose: 1 cap Lactulose (Enulose) 10 gm PO DAILY PRN PRN Reason: Constipation Last Admin: 07/15/18 12:55 Dose: 10 gm Magnesium Oxide (Mag-Ox) 400 mg PO BID [facility] Ondansetron HCl (Zofran Inj) 4 mg IVP Q4 PRN PRN Reason: Nausea/Vomiting Last Admin: 07/18/18 03:15 Dose: 4 mg Pantoprazole Sodium (Protonix Ec Tab) 40 mg PO DAILY [facility] Last Admin: 07/18/18 08:26 Dose: 40 mg Senna/Docusate Sodium (Senokot S 50 Mg-8.6 Mg) 2 tab PO BID [facility] Last Admin: 07/18/18 08:38 Dose: 2 tab Trimethoprim/Sulfamethoxazole (Sulfatrim Pediatric Susp) 20 ml PO Q12 [facility]; Protocol Stop: 08/16/18 08:00 Last Admin: 07/18/18 08:27 Dose: 1 ml - Labs Labs: 07/18/18 04:25 07/18/18 04:25 PT 11.5 Seconds (9.8-13.1) 07/11/18 19:12 INR 1.0 07/11/18 19:12 APTT 28.9 Seconds (25.6-37.1) 07/11/18 19:12 - Constitutional Appears: Non-toxic, No Acute Distress - Head Exam Head Exam: ATRAUMATIC, NORMAL INSPECTION, NORMOCEPHALIC - Eye Exam Eye Exam: EOMI, Normal appearance Pupil Exam: PERRL - ENT Exam ENT Exam: Mucous Membranes Moist - Neck Exam Neck Exam: Full ROM, Normal Inspection - Respiratory Exam Respiratory Exam: NORMAL BREATHING PATTERN - Cardiovascular Exam Cardiovascular Exam: REGULAR RHYTHM - Extremities Exam Extremities Exam: absent: Calf Tenderness, Full ROM, Pedal Edema Additional comments: RUE and RLE flaccid FROM to LUE and LLE - Neurological Exam Neurological Exam: Alert, Awake, Reflexes Normal Neuro motor strength exam: Left Upper Extremity: 5 (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 Small elliptical shaped hemorrhage left external capsule. Subacute infarct changes in the left posterior temporal and posterior frontoparietal region less well seen on this exam it compared to high-resolution MRI. -MRI Brain (07/11/18): 1. Multifocal late acute/early subacute infarctions in the left posterior parietal lobe. 2. Small foci of late acute/early subacute infarctions in bilateral parietal subcortical white matter. 3. Increased FLAIR hyperintensity in the left parietal cortical sulci is nonspecific, the differential considerations include subarachnoid hemorrhage, oxygen/anesthesia induced hyperintensity or nonspecific/proteinaceous hyperintense CSF. Clinical follow-up is advised and if clinically indicated, correlation with CT scan may be performed to exclude subarachnoid hemorrhage. -CT Head (07/11/18): Moderate nonspecific white matter changes. More prominent hypodense focus noted in the left centrum semiovale region. MRI with diffusion imaging suggested for further evaluation if indicated. Increased attenuation of the bilateral maxillary sinus contents may indicate proteinaceous material or fungal colonization. Mucosal thickening of the ethmoid air cells. -ECHO (07/12/18): EF 55-60% Ms. Kilgore is a 58 y/o female initially admitted to the ICU after being found unresponsive 2/2 possible drug overdose vs stroke vs seizure. She is currently extubated. -Hold Lovenox and ASA for now as CT Head from 07/17/18 shows small hemorrhage in the left external capsule. -Repeat CT Head in the morning 07/19/18 to evaluate the hemorrhage. -Maintain BP control -CTA head and neck to be done nikolay; still pending renal function improvement. -VEEG read by Dr. Dennis: sows slowing but no seizure activity. -Continue Statin. -PT, OT once pt can tolerate; ST will re-eval pt once extubated. -Continue to treat and manage other medical issues--has pneumonia, flu -Continue ICU management -Notify neuro team of any changes in pt's condition. Diagnostics and case discussed with Dr. Dennis Status: Acute
--- NOTE | 2018-07-18 12:58 | CP.PCM.PN ---
Subjective - Date & Time of Evaluation Date of Evaluation: 07/18/18 Time of Evaluation: 11:36 - Subjective Subjective: Patient awake, alert in NAD, self extubated, eating oral food Objective - Vital Signs/Intake and Output Vital Signs (last 24 hours): Temp Pulse Resp BP Pulse Ox 98.1 F 98 H 32 H 134/73 96 07/18/18 08:00 07/18/18 10:00 07/18/18 10:00 07/18/18 10:00 07/18/18 10:00 Intake and Output: 07/18/18 07/18/18 06:59 18:59 Intake Total 925 242 Balance 925 242 - Medications Medications: Current Medications Acetaminophen (Tylenol 650mg/20.3ml Solution Ud) 650 mg PO Q4H PRN PRN Reason: Temperature Last Admin: 07/13/18 23:42 Dose: 650 mg Albuterol/Ipratropium (Duoneb 3 Mg/0.5 Mg (3 Ml) Ud) 3 ml INH RQ4 [facility] Last Admin: 07/18/18 07:23 Dose: 3 ml Aspirin (Aspirin) 325 mg PO DAILY [facility] Last Admin: 07/18/18 08:33 Dose: 325 mg Atorvastatin Calcium (Lipitor) 20 mg PO DAILY@2200 [facility] Last Admin: 07/17/18 22:53 Dose: 20 mg Dextrose (Dextrose 50% Inj) 0 ml IV STAT PRN; Protocol PRN Reason: Hypoglycemia Protocol Dextrose (Glutose 15) 0 gm PO ONCE PRN; Protocol PRN Reason: Hypoglycemia Protocol Dolutegravir Sodium (Tivicay) 50 mg PO DAILY [facility]; Protocol Last Admin: 07/18/18 08:28 Dose: 50 mg Emtricitabine/Tenofovir (Truvada 200 Mg-300 Mg) 1 tab PO DAILY [facility]; Protocol Last Admin: 07/18/18 08:29 Dose: 1 tab Enoxaparin Sodium (Lovenox) 30 mg SC DAILY [facility]; Protocol Last Admin: 07/18/18 08:26 Dose: 30 mg Glucagon (Glucagen Diagnostic Kit) 0 mg IM STAT PRN; Protocol PRN Reason: Hypoglycemia Protocol Guaifenesin/Dextromethorphan (Mucinex-Dm 600-30 Mg) 2 tab PO BID [facility] Last Admin: 07/18/18 08:26 Dose: 2 tab Acyclovir 500 mg/ Sodium (Chloride) 100 mls @ 100 mls/hr IV Q12H [facility]; Protocol Last Admin: 07/18/18 01:28 Dose: 100 mls/hr Vancomycin HCl 1 gm/ Sodium (Chloride) 250 mls @ 166.667 mls/hr IVPB Q24H [facility]; Protocol Last Admin: 07/17/18 13:08 Dose: 166.667 mls/hr Levofloxacin/Dextrose (Levaquin 750mg) 750 mg in 150 mls @ 100 mls/hr IVPB DAILY [facility]; Protocol Last Admin: 07/18/18 08:36 Dose: 100 mls/hr Insulin Human Regular (Humulin R) 0 units SC ACHS [facility]; Protocol Last Admin: 07/18/18 07:23 Dose: Not Given Lactobacillus Acidophilus (Bacid Acidophilus) 1 cap PO BID [facility] Last Admin: 07/18/18 08:33 Dose: 1 cap Lactulose (Enulose) 10 gm PO DAILY PRN PRN Reason: Constipation Last Admin: 07/15/18 12:55 Dose: 10 gm Magnesium Oxide (Mag-Ox) 400 mg PO BID [facility] Ondansetron HCl (Zofran Inj) 4 mg IVP Q4 PRN PRN Reason: Nausea/Vomiting Last Admin: 07/18/18 03:15 Dose: 4 mg Pantoprazole Sodium (Protonix Ec Tab) 40 mg PO DAILY [facility] Last Admin: 07/18/18 08:26 Dose: 40 mg Senna/Docusate Sodium (Senokot S 50 Mg-8.6 Mg) 2 tab PO BID [facility] Last Admin: 07/18/18 08:38 Dose: 2 tab Trimethoprim/Sulfamethoxazole (Sulfatrim Pediatric Susp) 20 ml PO Q12 [facility]; Protocol Stop: 08/16/18 08:00 Last Admin: 07/18/18 08:27 Dose: 1 ml - Labs Labs: 07/18/18 04:25 07/18/18 04:25 PT 11.5 Seconds (9.8-13.1) 07/11/18 19:12 INR 1.0 07/11/18 19:12 APTT 28.9 Seconds (25.6-37.1) 07/11/18 19:12 - Head Exam Head Exam: ATRAUMATIC, NORMAL INSPECTION Additional comments: right sided facail droop - Respiratory Exam Respiratory Exam: Clear to Ausculation Bilateral, NORMAL BREATHING PATTERN - Cardiovascular Exam Cardiovascular Exam: REGULAR RHYTHM, +S1, +S2 - GI/Abdominal Exam GI & Abdominal Exam: Normal Bowel Sounds - Extremities Exam Extremities Exam: Normal Capillary Refill, Normal Inspection - Neurological Exam Neurological Exam: Alert, Awake, Oriented x3 - Skin Skin Exam: Normal Color Assessment and Plan - Assessment and Plan (Free Text) Assessment: ACute CVA: hemorrhagic as per CT head, hold antiplatelets and hold lovenox, continue statin -continue all other medications for HIV and (+)influenza -continue rx as per ID and neurology -d/c alberto -PT/OT -tolerating oral diet -continue scds -contnue pud ppx -neurology input regarding antiplatelts in light of CT head findings Patient remains hemodynamically stable, not on pressors not on IVF -d/c d5 as Na 139 -replace oral potassium
--- NOTE | 2018-07-18 13:02 | CP.PCM.PN ---
Subjective - Date & Time of Evaluation Date of Evaluation: 07/18/18 Time of Evaluation: 07:00 - Subjective Subjective: awake alert extubated weakness left side persists Objective - Vital Signs/Intake and Output Vital Signs (last 24 hours): Temp Pulse Resp BP Pulse Ox 97.3 F L 82 29 H 124/57 L 90 L 07/18/18 12:00 07/18/18 12:00 07/18/18 12:00 07/18/18 12:00 07/18/18 12:00 Intake and Output: 07/18/18 07/18/18 06:59 18:59 Intake Total 925 242 Balance 925 242 - Medications Medications: Current Medications Acetaminophen (Tylenol 650mg/20.3ml Solution Ud) 650 mg PO Q4H PRN PRN Reason: Temperature Last Admin: 07/13/18 23:42 Dose: 650 mg Albuterol/Ipratropium (Duoneb 3 Mg/0.5 Mg (3 Ml) Ud) 3 ml INH RQ4 [facility] Last Admin: 07/18/18 07:23 Dose: 3 ml Atorvastatin Calcium (Lipitor) 20 mg PO DAILY@2200 [facility] Last Admin: 07/17/18 22:53 Dose: 20 mg Dextrose (Dextrose 50% Inj) 0 ml IV STAT PRN; Protocol PRN Reason: Hypoglycemia Protocol Dextrose (Glutose 15) 0 gm PO ONCE PRN; Protocol PRN Reason: Hypoglycemia Protocol Dolutegravir Sodium (Tivicay) 50 mg PO DAILY [facility]; Protocol Last Admin: 07/18/18 08:28 Dose: 50 mg Emtricitabine/Tenofovir (Truvada 200 Mg-300 Mg) 1 tab PO DAILY [facility]; Protocol Last Admin: 07/18/18 08:29 Dose: 1 tab Glucagon (Glucagen Diagnostic Kit) 0 mg IM STAT PRN; Protocol PRN Reason: Hypoglycemia Protocol Guaifenesin/Dextromethorphan (Mucinex-Dm 600-30 Mg) 2 tab PO BID [facility] Last Admin: 07/18/18 08:26 Dose: 2 tab Acyclovir 500 mg/ Sodium (Chloride) 100 mls @ 100 mls/hr IV Q12H [facility]; Protocol Last Admin: 07/18/18 01:28 Dose: 100 mls/hr Vancomycin HCl 1 gm/ Sodium (Chloride) 250 mls @ 166.667 mls/hr IVPB Q24H [facility]; Protocol Last Admin: 07/17/18 13:08 Dose: 166.667 mls/hr Levofloxacin/Dextrose (Levaquin 750mg) 750 mg in 150 mls @ 100 mls/hr IVPB DAILY [facility]; Protocol Last Admin: 07/18/18 08:36 Dose: 100 mls/hr Insulin Human Regular (Humulin R) 0 units SC ACHS [facility]; Protocol Last Admin: 07/18/18 07:23 Dose: Not Given Lactobacillus Acidophilus (Bacid Acidophilus) 1 cap PO BID [facility] Last Admin: 07/18/18 08:33 Dose: 1 cap Lactulose (Enulose) 10 gm PO DAILY PRN PRN Reason: Constipation Last Admin: 07/15/18 12:55 Dose: 10 gm Magnesium Oxide (Mag-Ox) 400 mg PO BID [facility] Ondansetron HCl (Zofran Inj) 4 mg IVP Q4 PRN PRN Reason: Nausea/Vomiting Last Admin: 07/18/18 03:15 Dose: 4 mg Pantoprazole Sodium (Protonix Ec Tab) 40 mg PO DAILY [facility] Last Admin: 07/18/18 08:26 Dose: 40 mg Potassium Chloride (K-Dur 20 Meq Er Tab) 40 meq PO Q8H [facility] Stop: 07/19/18 11:46 Senna/Docusate Sodium (Senokot S 50 Mg-8.6 Mg) 2 tab PO BID [facility] Last Admin: 07/18/18 08:38 Dose: 2 tab Trimethoprim/Sulfamethoxazole (Sulfatrim Pediatric Susp) 20 ml PO Q12 [facility]; Protocol Stop: 08/16/18 08:00 Last Admin: 07/18/18 08:27 Dose: 1 ml - Labs Labs: 07/18/18 04:25 07/18/18 04:25 PT 11.5 Seconds (9.8-13.1) 07/11/18 19:12 INR 1.0 07/11/18 19:12 APTT 28.9 Seconds (25.6-37.1) 07/11/18 19:12 - Constitutional Appears: Non-toxic, Chronically Ill - Head Exam Head Exam: NORMOCEPHALIC - Eye Exam Eye Exam: absent: Scleral icterus - ENT Exam ENT Exam: Mucous Membranes Dry - Neck Exam Neck Exam: absent: Lymphadenopathy - Respiratory Exam Respiratory Exam: Decreased Breath Sounds, Rhonchi - Cardiovascular Exam Cardiovascular Exam: REGULAR RHYTHM, +S1, +S2 - GI/Abdominal Exam GI & Abdominal Exam: Distended, Soft. absent: Tenderness - Rectal Exam Rectal Exam: Deferred - Exam Exam: NORMAL INSPECTION - Extremities Exam Extremities Exam: absent: Pedal Edema - Back Exam Back Exam: absent: CVA tenderness (L), CVA tenderness (R) - Neurological Exam Neurological Exam: Alert, Awake, CN II-XII Intact Neuro motor strength exam: Left Upper Extremity: 3, Right Upper Extremity: 4, Left Lower Extremity: 2/1, Right Lower Extremity: 4 - Psychiatric Exam Psychiatric exam: Depressed - Skin Skin Exam: Dry Assessment and Plan (1) Bipolar disorder, current episode mixed, moderate Status: Acute (2) COPD (chronic obstructive pulmonary disease) Status: Acute (3) HIV (human immunodeficiency virus infection) Status: Acute (4) Cerebrovascular accident (CVA) with hemiparesis Status: Acute (5) Cerebrovascular accident (CVA) with right hemiparesis Status: Acute (6) Respiratory failure Status: Acute (7) Influenza A Status: Acute (8) Rhabdomyolysis Status: Acute (9) JOE (acute kidney injury) Status: Acute - Assessment and Plan (Free Text) Assessment: 58 y/o F with PMhx of positive HIV, Substance abuse, Asthma, bipolar disorder, Chronic Hep C was brought by EMS after being found unconscious and lethargic. On admission was found to have acute CVA with Left sided weakness, Influenza A Ag + , Rhabdo/ JOE, resp failure and pneumonia --Head CT: suggestive of left sided ischemia --CXR: Possible pneumonia in lower lobes. ? hilar adenopathy/mass. --MRI Brain: multifocal late acute/early subacte infarctions in L posterior parietal lobe, late acute/early subacute infarctions in L posterior parietal lobe, increased FLAIR hyperintensity in L cortical sulci (possibly subarachnoid hemorrhage, non-specific proteinaceous hyperintense CSF) Plan: CD4 = 147 of HAART rx as out pt ( noncompliant) Now on HAART with Truvada/ Tivacay Blood cultures negative thus far as well as urine and sputum Renal function improving Cardio on board - consider HERMILA when feasible to r/o Vegetation, clot , other IV Vanco/ Levaquin , Bactrim, acyclovir in progress Neuro following
--- NOTE | 2018-07-18 13:07 | CP.PCM.PN ---
<Yvonne Dexter - Last Filed: 07/18/18 14:59> Subjective - Date & Time of Evaluation Date of Evaluation: 07/18/18 Time of Evaluation: 09:00 - Subjective Subjective: 58-year-old female seen and examined this morning bedside on O2 NC (self- extubated 07/16, refusing high flow 07/17) sitting up in bed tolerating crackers. Patient awake, alert, afebrile and able to follow simple commands and answer simple questions although speech is slurred. Unable to move right extremities, strength 0. Does not appear to be in any acute distress but remains disoriented. Objective - Vital Signs/Intake and Output Vital Signs (last 24 hours): Temp Pulse Resp BP Pulse Ox 97.3 F L 82 29 H 124/57 L 90 L 07/18/18 12:00 07/18/18 12:00 07/18/18 12:00 07/18/18 12:00 07/18/18 12:00 Intake and Output: 07/18/18 07/18/18 06:59 18:59 Intake Total 925 242 Balance 925 242 - Medications Medications: Current Medications Acetaminophen (Tylenol 650mg/20.3ml Solution Ud) 650 mg PO Q4H PRN PRN Reason: Temperature Last Admin: 07/13/18 23:42 Dose: 650 mg Albuterol/Ipratropium (Duoneb 3 Mg/0.5 Mg (3 Ml) Ud) 3 ml INH RQ4 [facility] Last Admin: 07/18/18 11:00 Dose: 3 ml Atorvastatin Calcium (Lipitor) 20 mg PO DAILY@2200 [facility] Last Admin: 07/17/18 22:53 Dose: 20 mg Dextrose (Dextrose 50% Inj) 0 ml IV STAT PRN; Protocol PRN Reason: Hypoglycemia Protocol Dextrose (Glutose 15) 0 gm PO ONCE PRN; Protocol PRN Reason: Hypoglycemia Protocol Dolutegravir Sodium (Tivicay) 50 mg PO DAILY [facility]; Protocol Last Admin: 07/18/18 08:28 Dose: 50 mg Emtricitabine/Tenofovir (Truvada 200 Mg-300 Mg) 1 tab PO DAILY [facility]; Protocol Last Admin: 07/18/18 08:29 Dose: 1 tab Glucagon (Glucagen Diagnostic Kit) 0 mg IM STAT PRN; Protocol PRN Reason: Hypoglycemia Protocol Guaifenesin/Dextromethorphan (Mucinex-Dm 600-30 Mg) 2 tab PO BID [facility] Last Admin: 07/18/18 08:26 Dose: 2 tab Acyclovir 500 mg/ Sodium (Chloride) 100 mls @ 100 mls/hr IV Q12H [facility]; Protocol Last Admin: 07/18/18 01:28 Dose: 100 mls/hr Vancomycin HCl 1 gm/ Sodium (Chloride) 250 mls @ 166.667 mls/hr IVPB Q24H [facility]; Protocol Last Admin: 07/17/18 13:08 Dose: 166.667 mls/hr Levofloxacin/Dextrose (Levaquin 750mg) 750 mg in 150 mls @ 100 mls/hr IVPB DAILY [facility]; Protocol Last Admin: 07/18/18 08:36 Dose: 100 mls/hr Insulin Human Regular (Humulin R) 0 units SC ACHS [facility]; Protocol Last Admin: 07/18/18 07:23 Dose: Not Given Lactobacillus Acidophilus (Bacid Acidophilus) 1 cap PO BID [facility] Last Admin: 07/18/18 08:33 Dose: 1 cap Lactulose (Enulose) 10 gm PO DAILY PRN PRN Reason: Constipation Last Admin: 07/15/18 12:55 Dose: 10 gm Magnesium Oxide (Mag-Ox) 400 mg PO BID [facility] Ondansetron HCl (Zofran Inj) 4 mg IVP Q4 PRN PRN Reason: Nausea/Vomiting Last Admin: 07/18/18 03:15 Dose: 4 mg Pantoprazole Sodium (Protonix Ec Tab) 40 mg PO DAILY [facility] Last Admin: 07/18/18 08:26 Dose: 40 mg Potassium Chloride (K-Dur 20 Meq Er Tab) 40 meq PO Q8H [facility] Stop: 07/19/18 11:46 Senna/Docusate Sodium (Senokot S 50 Mg-8.6 Mg) 2 tab PO BID [facility] Last Admin: 07/18/18 08:38 Dose: 2 tab Trimethoprim/Sulfamethoxazole (Sulfatrim Pediatric Susp) 20 ml PO Q12 [facility]; Protocol Stop: 08/16/18 08:00 Last Admin: 07/18/18 08:27 Dose: 1 ml - Labs Labs: 07/18/18 04:25 07/18/18 04:25 PT 11.5 Seconds (9.8-13.1) 07/11/18 19:12 INR 1.0 07/11/18 19:12 APTT 28.9 Seconds (25.6-37.1) 07/11/18 19:12 - Constitutional Appears: Chronically Ill - Head Exam Head Exam: ATRAUMATIC, NORMAL INSPECTION - ENT Exam ENT Exam: Mucous Membranes Moist - Respiratory Exam Respiratory Exam: Rhonchi, Wheezes, NORMAL BREATHING PATTERN Additional comments: Tachypneic - GI/Abdominal Exam GI & Abdominal Exam: Distended, Soft. absent: Firm, Guarding, Rigid, Tenderness - Neurological Exam Neurological Exam: Alert, Altered, Awake Neuro motor strength exam: Left Upper Extremity: 4, Right Upper Extremity: 0, Left Lower Extremity: 4, Right Lower Extremity: 0 Additional comments: Speech slurred but much more verbal than yesterday, able to make requests and answer simple questions - Psychiatric Exam Additional comments: Confused, disoriented - Skin Skin Exam: Normal Color, Warm Assessment and Plan - Assessment and Plan (Free Text) Plan: Acute ischemic stroke CVA with R hemiparesis - MRI Brain (07/11): multifocal late acute/early subacte infarctions in L posterior parietal lobe, late acute/early subacute infarctions in L posterior parietal lobe, increased FLAIR hyperintensity in L cortical sulci (possibly subarachnoid hemorrhage, non-specific proteinaceous hyperintense CSF) - Video EEG monitoring as per Neurology, finished (Dr Dennis 07/17): VEEG showed slowing, but no seizures. - Lasix 40 BID - Atorvastatin 20 mg PO 07/13-07/15 - Aspirin 325mg PO daily 07/14-07/16 - Aspirin 300mg supp 07/17 - PT reccomendation (07/18): sub-acute rehab for PT - Continue PT/OT - Discontinue alberto catheter Acute Respiratory failure - Likely secondary to Pneumonia - Self-extubated 07/16 - O2 NC - As per nurse pt often removes oxygen and sats drop to mid-80's - As per pulmonology (Dr. Stahl 07/17/18): Refusing to keep O2 on, awake and alert, continue current rx Abdominal distention - Head CT (07/17/17): pending final results - CXR (07/16): fluid overload; lasix 40 mg IVP BID Toxic metabolic encephalopathy - Likely secondary to CVA, drug use, seizure - Urine screen positive for opiates and bezodiazepines - Seizure precautions - Laculose 10 gm daily PRN, last administered 07/15/18 - As per neurology (Dr Dennis 07/17/18): 58 yr old woman with encephalopathy, and possible new stroke. VEEG showed slowing, but no seizures. Neuro exam unchanged. not following commands, moving all extremities. +2 dtr ul and ll bl. Toes downgoing. No clonus. Feeding - Passed swallow eval (07/17) - Advanced diet to normal (07/18) Influenza A viral infection - Afebrile, WBC wnl (10.1) - S/p 5 day course of Tamiflu 75mg - ID consult, Dr Velazco Community acquired Pneumonia - Afebrile, no white count, lactate 0.9 - ID consult, Dr Velazco. consider HERMILA when feasible to r/o vegetation, clot, other - Levaquin 750 mg IV advanced to Q24H, renal function improving (previously Q48H began 07/13) - Vancomycin 1gm Q24H, 3 doses thus far, vanc trough 07/17/18: 12.3 - CXR (07/16): fluid overload; lasix 40 mg IVP BID - Duoneb Q4H Acute renal injury - Dehydration improving, CPK 800 therefor rhabdomyolysis not likely the cause of JOE - Improving - Continue IVF Hypokalemia - 3.2 today (07/18/18), 2.8 (07/17), 4.2 (07/16) - s/p KCl 40 mEq PO and 400 mg BID (07/18/18) - Follow up CMP HIV - HAART resumed (Tivicay 50mg daily and Truvada 200mg-300mg daily) - CD4 = 135 - Screen for opportunistic infections - Acyclovir 500mg Q12H and Bactrim 20 ml Q12H for prophylaxis - ID consult, Dr Velazco. Will follow recs Elevated troponins - 07/02/18: 3.5100, 3.6000, 3.1800 - As per cardiology (Dr Zahra Guevara 07/12): altered mental status probably secondary to drug over Dose. acute kidney injury with elevated troponin levels probably secondary to rhabdomyolysis. At this juncture the patient is hemodynamically stable. - Probably secondary to rhabdomyolysis - CPK serum levels (07/11: 1062, 07/12: 1332, 07/12: 1359, 07/13: 838) Chronic hepatitis C - Chronic - HCV viral load pending final result - ID consult, Dr Velazco Prophylaxis - Lovenox 30mg daily <Mikala Guzman - Last Filed: 07/18/18 16:55> Objective - Vital Signs/Intake and Output Vital Signs (last 24 hours): Temp Pulse Resp BP Pulse Ox 98 F 84 31 H 136/85 93 L 07/18/18 16:00 07/18/18 16:00 07/18/18 16:00 07/18/18 16:00 07/18/18 16:00 Intake and Output: 07/18/18 07/18/18 06:59 18:59 Intake Total 925 642 Balance 925 642 - Medications Medications: Current Medications Acetaminophen (Tylenol 650mg/20.3ml Solution Ud) 650 mg PO Q4H PRN PRN Reason: Temperature Last Admin: 07/13/18 23:42 Dose: 650 mg Albuterol/Ipratropium (Duoneb 3 Mg/0.5 Mg (3 Ml) Ud) 3 ml INH RQ4 [facility] Last Admin: 07/18/18 15:40 Dose: Not Given Atorvastatin Calcium (Lipitor) 20 mg PO DAILY@2200 [facility] Last Admin: 07/17/18 22:53 Dose: 20 mg Dextrose (Dextrose 50% Inj) 0 ml IV STAT PRN; Protocol PRN Reason: Hypoglycemia Protocol Dextrose (Glutose 15) 0 gm PO ONCE PRN; Protocol PRN Reason: Hypoglycemia Protocol Dolutegravir Sodium (Tivicay) 50 mg PO DAILY [facility]; Protocol Last Admin: 07/18/18 08:28 Dose: 50 mg Emtricitabine/Tenofovir (Truvada 200 Mg-300 Mg) 1 tab PO DAILY [facility]; Protocol Last Admin: 07/18/18 08:29 Dose: 1 tab Glucagon (Glucagen Diagnostic Kit) 0 mg IM STAT PRN; Protocol PRN Reason: Hypoglycemia Protocol Guaifenesin/Dextromethorphan (Mucinex-Dm 600-30 Mg) 2 tab PO BID [facility] Last Admin: 07/18/18 16:33 Dose: 2 tab Acyclovir 500 mg/ Sodium (Chloride) 100 mls @ 100 mls/hr IV Q12H [facility]; Protocol Last Admin: 07/18/18 01:28 Dose: 100 mls/hr Vancomycin HCl 1 gm/ Sodium (Chloride) 250 mls @ 166.667 mls/hr IVPB Q24H [facility]; Protocol Last Admin: 07/17/18 13:08 Dose: 166.667 mls/hr Levofloxacin/Dextrose (Levaquin 750mg) 750 mg in 150 mls @ 100 mls/hr IVPB DAILY [facility]; Protocol Last Admin: 07/18/18 08:36 Dose: 100 mls/hr Insulin Human Regular (Humulin R) 0 units SC ACHS [facility]; Protocol Last Admin: 07/18/18 16:32 Dose: Not Given Lactobacillus Acidophilus (Bacid Acidophilus) 1 cap PO BID [facility] Last Admin: 07/18/18 08:33 Dose: 1 cap Lactulose (Enulose) 10 gm PO DAILY PRN PRN Reason: Constipation Last Admin: 07/15/18 12:55 Dose: 10 gm Magnesium Oxide (Mag-Ox) 400 mg PO BID [facility] Ondansetron HCl (Zofran Inj) 4 mg IVP Q4 PRN PRN Reason: Nausea/Vomiting Last Admin: 07/18/18 03:15 Dose: 4 mg Pantoprazole Sodium (Protonix Ec Tab) 40 mg PO DAILY [facility] Last Admin: 07/18/18 08:26 Dose: 40 mg Potassium Chloride (K-Dur 20 Meq Er Tab) 40 meq PO Q8H [facility] Stop: 07/19/18 11:46 Senna/Docusate Sodium (Senokot S 50 Mg-8.6 Mg) 2 tab PO BID [facility] Last Admin: 07/18/18 16:32 Dose: 2 tab Trimethoprim/Sulfamethoxazole (Sulfatrim Pediatric Susp) 20 ml PO Q12 [facility]; Protocol Stop: 08/16/18 08:00 Last Admin: 07/18/18 08:27 Dose: 1 ml - Labs Labs: 07/18/18 04:25 07/18/18 04:25 PT 11.5 Seconds (9.8-13.1) 07/11/18 19:12 INR 1.0 07/11/18 19:12 APTT 28.9 Seconds (25.6-37.1) 07/11/18 19:12 Attending/Attestation - Attestation I have personally seen and examined this patient.: Yes I have fully participated in the care of the patient.: Yes I have reviewed all pertinent clinical information, including history, physical exam and plan: Yes Notes (Text): Additional Note : Acute CVA - Dr Dennis rec rpt MRI of Brain - PT/OT rec Acute Rehab, SW consulted Bipolar Disorder - will reorder previous Psych med - Cymbalta and Seroquel - Psych consult- Dr Perez
--- NOTE | 2018-07-18 15:23 | RAD ---
Date of service: 07/18/2018 HISTORY: Pneumonia COMPARISON: 07/16/2018. FINDINGS: There has been interval extubation. LUNGS: The lungs are well inflated. There is multifocal airspace disease in the right lower lobe. The left lung is clear. PLEURA: Suspect small right pleural effusion. No pneumothorax. CARDIOVASCULAR: The heart is normal in size. No aortic atherosclerotic calcification present. OSSEOUS STRUCTURES: There are old fracture deformities in the left upper and mid posterolateral ribs. VISUALIZED UPPER ABDOMEN: Normal. OTHER FINDINGS: None. IMPRESSION: Findings are most compatible with right lower lobe pneumonia and small right pleural effusion. Follow-up after medical management is recommended to ensure complete resolution.
[2018-07-18] MEDS: Magnesium Oxide 400 mg Tab UD PO SCH (16:54)
--- NOTE | 2018-07-18 16:58 | MRI ---
Date of service: 07/18/2018 PROCEDURE: MRI BRAIN WITHOUT CONTRAST HISTORY: stroke COMPARISON: Shayne Dennis TECHNIQUE: Multiplanar, multisequence MR images of the brain were obtained without intravenous contrast enhancement. FINDINGS: HEMORRHAGE: There is focal increased magnetic susceptibility in the left external capsule. DWI: Redemonstration of subacute left MCA ADMINISTRATIVE TECHNICIAN watershed territory, left border zone territory and right MCA ADMINISTRATIVE TECHNICIAN watershed territory subacute infarctions. There is also a small subacute infarction in the left posterior limb of the internal capsule. BRAIN PARENCHYMA: There is increased FLAIR and T2 hyperintensity corresponding to the subacute infarctions in bilateral parieto-occipital and left border zone deep white matter. There is no mass, mass effect or abnormal extra-axial fluid collection There is interval development of increased magnetic susceptibility and T2 hypointense signal within the known subacute infarction in left posterior centrum semiovale. VENTRICLES: There is mild age-related global parenchymal volume loss and proportionate enlargement of the ventricles and cortical sulci. CRANIUM: There is normal bone marrow signal pattern. ORBITS: Grossly unremarkable. PARANASAL SINUSES/MASTOIDS: Bilateral mastoid effusions. The right maxillary sinus is hypoplastic and completely opacified. There is moderate mucosal thickening in the remaining paranasal sinuses with relative sparing of the frontal sinus. VASCULAR SYSTEM: There are normal signal voids in the larger intracranial arteries. OTHER FINDINGS: None. IMPRESSION: Interval hemorrhagic transformation of subacute infarction in the left posterior centrum semiovale. Interval evolution of subacute bilateral MCA ADMINISTRATIVE TECHNICIAN watershed territories and left deep white matter border zone territory, and small subacute infarction in the posterior limb of the left internal capsule.. Mild age-related global parenchymal volume loss. 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 Important findings were discussed with Dr. Shayne Dennis on 07/18/2018 at 4:50 p.m.
[2018-07-18] MEDS: Potassium Chloride 20 mEq ER Tab PO SCH (20:22)
[2018-07-18] MEDS ORDERED: QUETIAPINE FUMARATE 200 MG PO SCH (22:00)
[2018-07-19] MEDS: Potassium Chloride 20 mEq ER Tab PO SCH ×3 (04:52→11:51)
[2018-07-19] MEDS: Albuterol-Ipratrop 3 mg / 0.5 (3 ml) UD INH SCH ×6 (04:54→23:54)
[2018-07-19] MEDS: Acyclovir 500 MG in Sodium Chloride 0.9% 100 ML IV SCH ×2 (04:58→12:47)
[2018-07-19 06:01] LABS: ALB/GLOB RATIO 0.8 (1.0-2.1); ALBUMIN 3.4 g/dL (3.5-5.0); ALT/SGPT 32 U/L (9-52); AST/SGOT 43 U/L (14-36); BLOOD UREA NITROGEN 33 mg/dl (7-17); CALCIUM 8.6 mg/dL (8.4-10.2); GFR NON-AFRICAN AMERICAN 57
[2018-07-19 06:10] LABS: BASO % 0.3 % (0.0-2.0); EOS # 0.1 K/uL (0.0-0.7); EOS % 1.2 % (0.0-4.0); HEMOGLOBIN 11.8 g/dL (12.0-16.0); LYMPH # 0.6 K/uL (1.0-4.3); LYMPH % 10.3 % (20.0-40.0); MEAN CELL VOLUME 82.6 fl (81.0-99.0); MEAN CORPUSCULAR HEMOGLOBIN 27.2 pg (27.0-31.0); MEAN PLATELET VOLUME 8.8 fl (7.2-11.7); MONO # 0.4 K/uL (0.0-0.8); MONO % 7.1 % (0.0-10.0); NEUT # 4.6 K/uL (1.8-7.0); NEUT % 81.1 % (50.0-75.0); RBC 4.34 Mil/uL (3.80-5.20); RED CELL DISTRIBUTION WIDTH 17.4 % (11.5-14.5); WHITE BLOOD COUNT 5.7 K/uL (4.8-10.8)
--- NOTE | 2018-07-19 08:16 | CP.PCM.PN ---
Subjective - Date & Time of Evaluation Date of Evaluation: 07/19/18 Time of Evaluation: 08:16 - Subjective Subjective: AWAKE AND ALERT R ARM WEAKNESS PERSISTS SOB IMPROVED Objective - Vital Signs/Intake and Output Vital Signs (last 24 hours): Temp Pulse Resp BP Pulse Ox 98.2 F 80 35 H 104/73 92 L 07/19/18 04:00 07/19/18 06:00 07/19/18 06:00 07/19/18 06:00 07/19/18 06:00 Intake and Output: 07/19/18 07/19/18 06:59 18:59 Intake Total 100 Balance 100 - Medications Medications: Current Medications Acetaminophen (Tylenol 650mg/20.3ml Solution Ud) 650 mg PO Q4H PRN PRN Reason: Temperature Last Admin: 07/13/18 23:42 Dose: 650 mg Albuterol/Ipratropium (Duoneb 3 Mg/0.5 Mg (3 Ml) Ud) 3 ml INH RQ4 [facility] Last Admin: 07/19/18 04:54 Dose: 3 ml Amlodipine Besylate (Norvasc) 2.5 mg PO DAILY [facility] Atorvastatin Calcium (Lipitor) 20 mg PO DAILY@2200 [facility] Last Admin: 07/18/18 22:25 Dose: 20 mg Dextrose (Dextrose 50% Inj) 0 ml IV STAT PRN; Protocol PRN Reason: Hypoglycemia Protocol Dextrose (Glutose 15) 0 gm PO ONCE PRN; Protocol PRN Reason: Hypoglycemia Protocol Dolutegravir Sodium (Tivicay) 50 mg PO DAILY [facility]; Protocol Last Admin: 07/18/18 08:28 Dose: 50 mg Duloxetine HCl (Cymbalta) 30 mg PO BID [facility] Last Admin: 07/18/18 17:56 Dose: 30 mg Emtricitabine/Tenofovir (Truvada 200 Mg-300 Mg) 1 tab PO DAILY [facility]; Protocol Last Admin: 07/18/18 08:29 Dose: 1 tab Glucagon (Glucagen Diagnostic Kit) 0 mg IM STAT PRN; Protocol PRN Reason: Hypoglycemia Protocol Guaifenesin/Dextromethorphan (Mucinex-Dm 600-30 Mg) 2 tab PO BID [facility] Last Admin: 07/18/18 16:33 Dose: 2 tab Acyclovir 500 mg/ Sodium (Chloride) 100 mls @ 100 mls/hr IV Q12H [facility]; Protocol Last Admin: 07/19/18 04:58 Dose: 100 mls/hr Vancomycin HCl 1 gm/ Sodium (Chloride) 250 mls @ 166.667 mls/hr IVPB Q24H [facility]; Protocol Last Admin: 07/17/18 13:08 Dose: 166.667 mls/hr Levofloxacin/Dextrose (Levaquin 750mg) 750 mg in 150 mls @ 100 mls/hr IVPB DAILY [facility]; Protocol Last Admin: 07/18/18 08:36 Dose: 100 mls/hr Insulin Human Regular (Humulin R) 0 units SC ACHS [facility]; Protocol Last Admin: 07/18/18 22:25 Dose: Not Given Lactobacillus Acidophilus (Bacid Acidophilus) 1 cap PO BID [facility] Last Admin: 07/18/18 17:58 Dose: 1 cap Lactulose (Enulose) 10 gm PO DAILY PRN PRN Reason: Constipation Last Admin: 07/15/18 12:55 Dose: 10 gm Magnesium Oxide (Mag-Ox) 400 mg PO BID [facility] Last Admin: 07/18/18 16:54 Dose: 400 mg Ondansetron HCl (Zofran Inj) 4 mg IVP Q4 PRN PRN Reason: Nausea/Vomiting Last Admin: 07/18/18 03:15 Dose: 4 mg Pantoprazole Sodium (Protonix Ec Tab) 40 mg PO DAILY [facility] Last Admin: 07/18/18 08:26 Dose: 40 mg Potassium Chloride (K-Dur 20 Meq Er Tab) 40 meq PO Q8H [facility] Stop: 07/19/18 11:46 Last Admin: 07/19/18 04:52 Dose: 40 meq Quetiapine Fumarate (Seroquel) 200 mg PO HS [facility] Last Admin: 07/18/18 22:20 Dose: 200 mg Senna/Docusate Sodium (Senokot S 50 Mg-8.6 Mg) 2 tab PO BID [facility] Last Admin: 07/18/18 16:32 Dose: 2 tab Trimethoprim/Sulfamethoxazole (Sulfatrim Pediatric Susp) 20 ml PO Q12 [facility]; Protocol Stop: 08/16/18 08:00 Last Admin: 07/18/18 20:22 Dose: 20 ml - Labs Labs: 07/19/18 04:30 07/19/18 04:30 PT 11.5 Seconds (9.8-13.1) 07/11/18 19:12 INR 1.0 07/11/18 19:12 APTT 28.9 Seconds (25.6-37.1) 07/11/18 19:12 - Constitutional Appears: Chronically Ill - Head Exam Head Exam: ATRAUMATIC, NORMAL INSPECTION, NORMOCEPHALIC - Eye Exam Eye Exam: EOMI, Normal appearance, PERRL Pupil Exam: NORMAL ACCOMODATION, PERRL - ENT Exam ENT Exam: Mucous Membranes Moist, Normal Exam - Neck Exam Neck Exam: Full ROM, Normal Inspection. absent: Lymphadenopathy - Respiratory Exam Respiratory Exam: Decreased Breath Sounds, Prolonged Expiratory Phase, Rales, NORMAL BREATHING PATTERN - Cardiovascular Exam Cardiovascular Exam: REGULAR RHYTHM, +S1, +S2. absent: Murmur - GI/Abdominal Exam GI & Abdominal Exam: Soft, Normal Bowel Sounds. absent: Tenderness - Rectal Exam Rectal Exam: NORMAL INSPECTION - Extremities Exam Extremities Exam: Full ROM, Normal Capillary Refill, Normal Inspection. absent: Joint Swelling, Pedal Edema Additional comments: R ARM WEAKNESS - Back Exam Back Exam: NORMAL INSPECTION - Neurological Exam Neurological Exam: Alert, Awake, CN II-XII Intact - Psychiatric Exam Psychiatric exam: Normal Affect, Normal Mood - Skin Skin Exam: Dry, Intact, Normal Color, Warm Assessment and Plan - Assessment and Plan (Free Text) Assessment: CVA PNEUMONIA FLU RESOLVED RESPIRATORY FAILURE IMPROVED Plan: CONTINUE ANTIBIOTIC RX O2 NEEDED
[2018-07-19] MEDS: Insulin Regular 100 units/ml SC SCH ×4 (08:45→21:20)
[2018-07-19] MEDS: guaiFENesin-DM 600-30 mg ER Tab PO SCH ×2 (09:54→16:28)
[2018-07-19] MEDS: Magnesium Oxide 400 mg Tab UD PO SCH ×3 (09:56→16:28)
[2018-07-19] MEDS: Tmp-Smz 200-40mg/5 ml Oral Sus(120 ml) PO SCH ×2 (09:59→21:19)
[2018-07-19] MEDS: levoFLOXacin 750 mg in D5W 750 MG/150 ML BAG IVPB SCH (10:00)
[2018-07-19] MEDS: Docusate-Senna 50 mg-8.6 mg Tab PO SCH ×2 (10:02→16:29)
[2018-07-19] MEDS: Emtricitabine-Tenofovir 200 mg-300 mg Tab PO SCH (10:02)
[2018-07-19] MEDS: Pantoprazole 40 mg EC Tab PO SCH (10:03)
--- NOTE | 2018-07-19 11:14 | CP.PCM.PN ---
Subjective - Date & Time of Evaluation Date of Evaluation: 07/19/18 Time of Evaluation: 11:13 - Subjective Subjective: Neurology Follow-Up Note: Mrs. Kilgore was evaluated this morning in the ICU. She has been downgraded to telemetry per primary team. She remains extubated. She is able to follow simple commands. Pt has no complaints today. She denies h/a, dizziness, visual changes, chest pain, palpitation, sob, n/v/d. Objective - Vital Signs/Intake and Output Vital Signs (last 24 hours): Temp Pulse Resp BP Pulse Ox 98.3 F 76 38 H 162/88 H 92 L 07/19/18 08:00 07/19/18 08:00 07/19/18 08:00 07/19/18 08:00 07/19/18 08:00 Intake and Output: 07/19/18 07/19/18 06:59 18:59 Intake Total 100 Balance 100 - Medications Medications: Current Medications Acetaminophen (Tylenol 650mg/20.3ml Solution Ud) 650 mg PO Q4H PRN PRN Reason: Temperature Last Admin: 07/13/18 23:42 Dose: 650 mg Albuterol/Ipratropium (Duoneb 3 Mg/0.5 Mg (3 Ml) Ud) 3 ml INH RQ4 [facility] Last Admin: 07/19/18 08:22 Dose: 3 ml Amlodipine Besylate (Norvasc) 2.5 mg PO DAILY [facility] Atorvastatin Calcium (Lipitor) 20 mg PO DAILY@2200 [facility] Last Admin: 07/18/18 22:25 Dose: 20 mg Dextrose (Dextrose 50% Inj) 0 ml IV STAT PRN; Protocol PRN Reason: Hypoglycemia Protocol Dextrose (Glutose 15) 0 gm PO ONCE PRN; Protocol PRN Reason: Hypoglycemia Protocol Dolutegravir Sodium (Tivicay) 50 mg PO DAILY [facility]; Protocol Last Admin: 07/19/18 09:58 Dose: 50 mg Duloxetine HCl (Cymbalta) 30 mg PO BID [facility] Last Admin: 07/19/18 09:54 Dose: 30 mg Emtricitabine/Tenofovir (Truvada 200 Mg-300 Mg) 1 tab PO DAILY [facility]; Protocol Last Admin: 07/19/18 10:02 Dose: 1 tab Glucagon (Glucagen Diagnostic Kit) 0 mg IM STAT PRN; Protocol PRN Reason: Hypoglycemia Protocol Guaifenesin/Dextromethorphan (Mucinex-Dm 600-30 Mg) 2 tab PO BID [facility] [place] Last Admin: 07/19/18 09:54 Dose: 2 tab Acyclovir 500 mg/ Sodium (Chloride) 100 mls @ 100 mls/hr IV Q12H [facility]; Protocol Last Admin: 07/19/18 04:58 Dose: 100 mls/hr Vancomycin HCl 1 gm/ Sodium (Chloride) 250 mls @ 166.667 mls/hr IVPB Q24H [facility]; Protocol Last Admin: 07/17/18 13:08 Dose: 166.667 mls/hr Levofloxacin/Dextrose (Levaquin 750mg) 750 mg in 150 mls @ 100 mls/hr IVPB DAILY [facility]; Protocol Last Admin: 07/19/18 10:00 Dose: 100 mls/hr Insulin Human Regular (Humulin R) 0 units SC ACHS [facility]; Protocol Last Admin: 07/18/18 22:25 Dose: Not Given Lactobacillus Acidophilus (Bacid Acidophilus) 1 cap PO BID [facility] Last Admin: 07/18/18 17:58 Dose: 1 cap Lactulose (Enulose) 10 gm PO DAILY PRN PRN Reason: Constipation Last Admin: 07/15/18 12:55 Dose: 10 gm Magnesium Oxide (Mag-Ox) 400 mg PO BID [facility] Last Admin: 07/19/18 10:04 Dose: 400 mg Ondansetron HCl (Zofran Inj) 4 mg IVP Q4 PRN PRN Reason: Nausea/Vomiting Last Admin: 07/18/18 03:15 Dose: 4 mg Pantoprazole Sodium (Protonix Ec Tab) 40 mg PO DAILY [facility] Last Admin: 07/19/18 10:03 Dose: 40 mg Potassium Chloride (K-Dur 20 Meq Er Tab) 40 meq PO Q8H [facility] Stop: 07/19/18 11:46 Last Admin: 07/19/18 09:58 Dose: 40 meq Quetiapine Fumarate (Seroquel) 200 mg PO HS [facility] [place] Last Admin: 07/18/18 22:20 Dose: 200 mg Senna/Docusate Sodium (Senokot S 50 Mg-8.6 Mg) 2 tab PO BID [facility] [place] Last Admin: 07/19/18 10:02 Dose: Not Given Trimethoprim/Sulfamethoxazole (Sulfatrim Pediatric Susp) 20 ml PO Q12 [facility] [place]; Protocol Stop: 08/16/18 08:00 Last Admin: 07/19/18 09:59 Dose: 20 ml - Labs Labs: 07/19/18 04:30 07/19/18 04:30 PT 11.5 Seconds (9.8-13.1) 07/11/18 19:12 INR 1.0 07/11/18 19:12 APTT 28.9 Seconds (25.6-37.1) 07/11/18 19:12 - Head Exam Head Exam: ATRAUMATIC, NORMAL INSPECTION, NORMOCEPHALIC - Eye Exam Eye Exam: EOMI, Normal appearance Pupil Exam: NORMAL ACCOMODATION - ENT Exam ENT Exam: Mucous Membranes Moist - Neck Exam Neck Exam: Full ROM, Normal Inspection - Respiratory Exam Respiratory Exam: NORMAL BREATHING PATTERN - Cardiovascular Exam Cardiovascular Exam: REGULAR RHYTHM - Extremities Exam Extremities Exam: absent: Calf Tenderness, Full ROM, Pedal Edema Additional comments: RUE and RLE flaccid FROM to LUE and LLE - Neurological Exam Neurological Exam: Alert, Awake. 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), Right Upper Extremity: 0, Left Lower Extremity: 5 (dorsiflexion 5/5), Right Lower Extremity: 0 Additional comments: awake, alert; follows simple commands right sided facial droop noted speech slightly slurred; pt appears to have expressive aphasia right side flaccid sensation is intact b/l reflexes brisk b/l - Psychiatric Exam Additional comments: calm, cooperative - Skin Skin Exam: Normal Color Assessment and Plan (1) CVA (cerebral vascular accident) Assessment & Plan: Imaging reviewed: -MRI Brain (07/18/18): Interval hemorrhagic transformation of subacute infarction in the left posterior centrum semiovale. Interval evolution of subacute bila teral MCA [employer] watershed territories and left deep white matter border zone territory, and small subacute infarction in the posterior limb of the left internal capsule. Mild age-related global parenchymal volume loss. 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 -CT Head (07/17/18): Limited motion degraded study. Small elliptical shaped hemorrhage left external capsule. Subacute infarct changes in the left posterior temporal and posterior frontoparietal region less well seen on this exam it compared to high-resolution MRI. -MRI Brain (07/11/18): 1. Multifocal late acute/early subacute infarctions in the left posterior parietal lobe. 2. Small foci of late acute/early subacute infarctions in bilateral parietal subcortical white matter. 3. Increased FLAIR hyperintensity in the left parietal cortical sulci is nonspecific, the differential considerations include subarachnoid hemorrhage, oxygen/anesthesia induced hyperintensity or nonspecific/proteinaceous hyperintense CSF. Clinical follow-up is advised and if clinically indicated, correlation with CT scan may be performed to exclude subarachnoid hemorrhage. -CT Head (07/11/18): Moderate nonspecific white matter changes. More prominent hypodense focus noted in the left centrum semiovale region. MRI with diffusion imaging suggested for further evaluation if indicated. Increased attenuation of the bilateral maxillary sinus contents may indicate proteinaceous material or fungal colonization. Mucosal thickening of the ethmoid air cells. -ECHO (07/12/18): EF 55-60% Ms. Kilgore is a 58 y/o female initially admitted to the ICU after being found unresponsive 2/2 possible drug overdose vs stroke vs seizure. She is now downgraded to telemetry and remains extubated. -Continue to hold Lovenox and ASA for now as most recent CT Head and Brain MRI show hemorrhagic conversion. -Repeat CT Head today to evaluate the hemorrhage--will f/u with results. -Maintain BP control -CTA head and neck to be done nikolay; still pending renal function improvement. -VEEG read by Dr. Dennis: shows slowing but no seizure activity. -Continue Statin. -Continue rehab and therapy services. -Continue to treat and manage other medical issues. -Continue ICU management -Notify neuro team of any changes in pt's condition. Case discussed with Dr. Dennis Status: Acute
--- NOTE | 2018-07-19 11:42 | CP.PCM.PN ---
Subjective - Date & Time of Evaluation Date of Evaluation: 07/19/18 Time of Evaluation: 10:00 - Subjective Subjective: 58-year-old female seen and examined in bed this morning on O2 NC (self- extubated 07/16, refusing high flow 07/17). Patient awake, alert, afebrile and answering simple questions although speech is slurred and decreased from yesterday. Unable to move right extremities, strength 0. Willing to participate in PT. Does not appear to be in any acute distress but remains disoriented. Objective - Vital Signs/Intake and Output Vital Signs (last 24 hours): Temp Pulse Resp BP Pulse Ox 98.3 F 76 38 H 162/88 H 92 L 07/19/18 08:00 07/19/18 08:00 07/19/18 08:00 07/19/18 08:00 07/19/18 08:00 Intake and Output: 07/19/18 07/19/18 06:59 18:59 Intake Total 100 Balance 100 - Medications Medications: Current Medications Acetaminophen (Tylenol 650mg/20.3ml Solution Ud) 650 mg PO Q4H PRN PRN Reason: Temperature Last Admin: 07/13/18 23:42 Dose: 650 mg Albuterol/Ipratropium (Duoneb 3 Mg/0.5 Mg (3 Ml) Ud) 3 ml INH RQ4 [facility] Last Admin: 07/19/18 11:37 Dose: 3 ml Amlodipine Besylate (Norvasc) 2.5 mg PO DAILY [facility] Atorvastatin Calcium (Lipitor) 20 mg PO DAILY@2200 [facility] Last Admin: 07/18/18 22:25 Dose: 20 mg Dextrose (Dextrose 50% Inj) 0 ml IV STAT PRN; Protocol PRN Reason: Hypoglycemia Protocol Dextrose (Glutose 15) 0 gm PO ONCE PRN; Protocol PRN Reason: Hypoglycemia Protocol Dolutegravir Sodium (Tivicay) 50 mg PO DAILY [facility]; Protocol Last Admin: 07/19/18 09:58 Dose: 50 mg Duloxetine HCl (Cymbalta) 30 mg PO BID [facility] Last Admin: 07/19/18 09:54 Dose: 30 mg Emtricitabine/Tenofovir (Truvada 200 Mg-300 Mg) 1 tab PO DAILY [facility]; Protocol Last Admin: 07/19/18 10:02 Dose: 1 tab Glucagon (Glucagen Diagnostic Kit) 0 mg IM STAT PRN; Protocol PRN Reason: Hypoglycemia Protocol Guaifenesin/Dextromethorphan (Mucinex-Dm 600-30 Mg) 2 tab PO BID [facility] Last Admin: 07/19/18 09:54 Dose: 2 tab Acyclovir 500 mg/ Sodium (Chloride) 100 mls @ 100 mls/hr IV Q12H [facility]; Protocol Last Admin: 07/19/18 04:58 Dose: 100 mls/hr Vancomycin HCl 1 gm/ Sodium (Chloride) 250 mls @ 166.667 mls/hr IVPB Q24H [facility]; Protocol Last Admin: 07/17/18 13:08 Dose: 166.667 mls/hr Levofloxacin/Dextrose (Levaquin 750mg) 750 mg in 150 mls @ 100 mls/hr IVPB DAILY [facility]; Protocol Last Admin: 07/19/18 10:00 Dose: 100 mls/hr Insulin Human Regular (Humulin R) 0 units SC ACHS [facility]; Protocol Last Admin: 07/18/18 22:25 Dose: Not Given Lactobacillus Acidophilus (Bacid Acidophilus) 1 cap PO BID [facility] Last Admin: 07/18/18 17:58 Dose: 1 cap Lactulose (Enulose) 10 gm PO DAILY PRN PRN Reason: Constipation Last Admin: 07/15/18 12:55 Dose: 10 gm Magnesium Oxide (Mag-Ox) 400 mg PO BID [facility] Last Admin: 07/19/18 10:04 Dose: 400 mg Ondansetron HCl (Zofran Inj) 4 mg IVP Q4 PRN PRN Reason: Nausea/Vomiting Last Admin: 07/18/18 03:15 Dose: 4 mg Pantoprazole Sodium (Protonix Ec Tab) 40 mg PO DAILY [facility] Last Admin: 07/19/18 10:03 Dose: 40 mg Potassium Chloride (K-Dur 20 Meq Er Tab) 40 meq PO Q8H [facility] Stop: 07/19/18 11:46 Last Admin: 07/19/18 09:58 Dose: 40 meq Quetiapine Fumarate (Seroquel) 200 mg PO HS [facility] Last Admin: 07/18/18 22:20 Dose: 200 mg Senna/Docusate Sodium (Senokot S 50 Mg-8.6 Mg) 2 tab PO BID [facility] Last Admin: 07/19/18 10:02 Dose: Not Given Trimethoprim/Sulfamethoxazole (Sulfatrim Pediatric Susp) 20 ml PO Q12 [facility]; Protocol Stop: 08/16/18 08:00 Last Admin: 07/19/18 09:59 Dose: 20 ml - Labs Labs: 07/19/18 04:30 07/19/18 04:30 PT 11.5 Seconds (9.8-13.1) 07/11/18 19:12 INR 1.0 07/11/18 19:12 APTT 28.9 Seconds (25.6-37.1) 07/11/18 19:12 - Constitutional Appears: Chronically Ill - Head Exam Head Exam: ATRAUMATIC, NORMAL INSPECTION - ENT Exam ENT Exam: Mucous Membranes Moist - Respiratory Exam Respiratory Exam: Rhonchi, Wheezes, NORMAL BREATHING PATTERN - GI/Abdominal Exam GI & Abdominal Exam: Distended, Firm. absent: Guarding, Tenderness - Extremities Exam Additional comments: R extremities no ROM, no strength - Neurological Exam Neurological Exam: Alert, Awake Neuro motor strength exam: Left Upper Extremity: 4, Right Upper Extremity: 0, Left Lower Extremity: 4, Right Lower Extremity: 0 Additional comments: Less verbal than yesterday but still following simple commands and responding to some questions - Skin Skin Exam: Dry, Intact, Normal Color, Warm Assessment and Plan - Assessment and Plan (Free Text) Assessment: Ms. Kilgore is a 58 y/o female initially admitted to the ICU after being found unresponsive 2/2 possible drug overdose vs stroke. Plan: Acute ischemic stroke CVA with R hemiparesis - MRI Brain (07/11): multifocal late acute/early subacte infarctions in L posterior parietal lobe, late acute/early subacute infarctions in L posterior parietal lobe, increased FLAIR hyperintensity in L cortical sulci (possibly subarachnoid hemorrhage, non-specific proteinaceous hyperintense CSF) - Video EEG monitoring as per Neurology, finished (Dr Dennis 07/17): VEEG showed slowing, but no seizures. - CT Head (07/17): small elliptical hemorrhage ext capsule - Neuro rec (Dr Dennis): Continue to hold Lovenox and ASA for now as most recent CT Head and Brain MRI show hemorrhagic conversion, Repeat CT Head in the morning 07/19/18 to evaluate the hemorrhage. Maintain BP control. CTA head and neck to be done nikolay; still pending renal function improvement. Continue ICU management. - Lasix 40 BID - Atorvastatin 20 mg PO 07/13-07/15 - PT rec (07/18): sub-acute rehab for PT - Continue PT/OT - Discontinue alberto catheter (07/18) Acute Respiratory failure - Likely secondary to Pneumonia - Self-extubated 07/16 - O2 NC, SPO2 low 90's - As per nurse pt often removes oxygen and sats drop to mid-80's - As per pulmonology (Dr. Stahl 07/19/18): respiratory faiure improved, continue antibiotic rx, O2 as needed. Hypertension - As per neuro: maintain BP control - BP range overnight (136-159/84-91) - Norvasc 2.5 mg PO started today - Monitor BP Toxic metabolic encephalopathy - Likely secondary to CVA, drug use, seizure - Urine screen positive for opiates and bezodiazepines - Laculose 10 gm daily PRN, last administered 07/15/18 Feeding - Passed swallow eval (07/17) - Advanced diet to normal, tolerating well (07/18) Influenza A viral infection - Afebrile, WBC wnl (5.7) - S/p 5 day course of Tamiflu 75mg Community acquired Pneumonia - Afebrile, no white count, lactate 0.9 - ID consult, Dr Velazco. consider HERMILA when feasible to r/o vegetation, clot, other - Levaquin 750 mg IV advanced to Q24H, renal function improving (previously Q48H began 07/13) - S/P Vancomycin 1gm Q24H, 3 doses, vanc trough 07/17/18: 12.3 - CXR (07/16): fluid overload; lasix 40 mg IVP BID - Duoneb Q4H Acute renal injury - Dehydration improving, CPK 800 therefor rhabdomyolysis not likely the cause of JOE - BUN/Cr 33/1.0 - Improving Hypokalemia - 3.5 today, 3.2 (07/18/18), 2.8 (07/17), 4.2 (07/16) - KCl 40 mEq PO today - s/p KCl 40 mEq PO and 400 mg M BID (07/18/18) - Follow up CMP HIV - HAART resumed (Tivicay 50mg daily and Truvada 200mg-300mg daily) - CD4 = 135 - Screen for opportunistic infections - Acyclovir 500mg Q12H and Bactrim 20 ml Q12H for prophylaxis - ID consult, Dr Velazco. Will follow recs Elevated troponins - 07/02/18: 3.5100, 3.6000, 3.1800 - As per cardiology (Dr Zahra Guevara 07/12): altered mental status probably secondary to drug over Dose. acute kidney injury with elevated troponin levels probably secondary to rhabdomyolysis. At this juncture the patient is hemodynamically stable. - Probably secondary to rhabdomyolysis - CPK serum levels (07/11: 1062, 07/12: 1332, 07/12: 1359, 07/13: 838) Chronic hepatitis C - Chronic - HCV viral load pending final result - ID consult, Dr Velazco Prophylaxis - Lovenox 30mg daily
[2018-07-19] MEDS: Lactobacillus Acidophilus 500 MU Cap PO SCH ×2 (11:49→16:27)
[2018-07-19] MEDS: Labetalol 5mg/ml (4ml) IVP PRN ×2 (12:42→19:52)
[2018-07-19] MEDS ORDERED: Labetalol 5mg/ml (4ml) ONE (12:42)
[2018-07-19] MEDS ORDERED: EnalaprilAT 1.25 mg/ml Inj IV PRN (18:10)
--- NOTE | 2018-07-19 18:20 | CT ---
Date of service: 07/19/2018 PROCEDURE: CT HEAD WITHOUT CONTRAST. HISTORY: re-eval hemorrhage noted on ct from 07/17/18 COMPARISON: 07/17/2008. CT head. 07/18/2018 MRI brain TECHNIQUE: Axial computed tomography images were obtained through the head/brain without intravenous contrast. Supplemental Coronal and Sagittal projections created and reviewed. Radiation dose: Total exam DLP = 914.07 mGy-cm. This CT exam was performed using one or more of the following dose reduction techniques: Automated exposure control, adjustment of the mA and/or kV according to patient size, and/or use of iterative reconstruction technique. FINDINGS: HEMORRHAGE: Stable hemorrhagic focus deep left temporal parietal lobe unchanged compared to the prior study. Focal area of petechial hemorrhage left high parietal lobe. Adjacent edema noted. BRAIN: No mass effect or edema. No atrophy or chronic microvascular ischemic changes. VENTRICLES: Unremarkable. No hydrocephalus. CALVARIUM: Unremarkable. PARANASAL SINUSES: Chronic right maxillary sinusitis a stable finding. MASTOID AIR CELLS: Unremarkable as visualized. No inflammatory changes. OTHER FINDINGS: None. IMPRESSION: Stable hemorrhagic focus left temporal parietal region. Incompletely visualize areas of cortical infarction watershed area left high posterior parietal region. No new/acute findings or interval changes. Limitations of the current examination: Patient related motion induced artifact.
--- NOTE | 2018-07-19 18:37 | CP.PCM.PN ---
Subjective - Date & Time of Evaluation Date of Evaluation: 07/19/18 Time of Evaluation: 07:00 - Subjective Subjective: arousable remains afebrile extubated still nad Objective - Vital Signs/Intake and Output Vital Signs (last 24 hours): Temp Pulse Resp BP Pulse Ox 98.2 F 71 43 H 148/113 H 91 L 07/19/18 13:00 07/19/18 15:47 07/19/18 12:00 07/19/18 13:00 07/19/18 13:00 Intake and Output: 07/19/18 07/19/18 06:59 18:59 Intake Total 100 100 Output Total 1 Balance 100 99 - Medications Medications: Current Medications Acetaminophen (Tylenol 650mg/20.3ml Solution Ud) 650 mg PO Q4H PRN PRN Reason: Temperature Last Admin: 07/13/18 23:42 Dose: 650 mg Albuterol/Ipratropium (Duoneb 3 Mg/0.5 Mg (3 Ml) Ud) 3 ml INH RQ4 [facility] Last Admin: 07/19/18 15:36 Dose: 3 ml Amlodipine Besylate (Norvasc) 2.5 mg PO DAILY [facility] Last Admin: 07/19/18 11:56 Dose: Not Given Atorvastatin Calcium (Lipitor) 20 mg PO DAILY@2200 [facility] Last Admin: 07/18/18 22:25 Dose: 20 mg Dextrose (Dextrose 50% Inj) 0 ml IV STAT PRN; Protocol PRN Reason: Hypoglycemia Protocol Dextrose (Glutose 15) 0 gm PO ONCE PRN; Protocol PRN Reason: Hypoglycemia Protocol Dolutegravir Sodium (Tivicay) 50 mg PO DAILY [facility]; Protocol Last Admin: 07/19/18 09:58 Dose: 50 mg Duloxetine HCl (Cymbalta) 30 mg PO BID [facility] Last Admin: 07/19/18 16:29 Dose: 30 mg Emtricitabine/Tenofovir (Truvada 200 Mg-300 Mg) 1 tab PO DAILY [facility]; Protocol Last Admin: 07/19/18 10:02 Dose: Not Given Enalaprilat (Vasotec Iv) 1.25 mg IV Q6 PRN PRN Reason: hypertension Glucagon (Glucagen Diagnostic Kit) 0 mg IM STAT PRN; Protocol PRN Reason: Hypoglycemia Protocol Guaifenesin/Dextromethorphan (Mucinex-Dm 600-30 Mg) 2 tab PO BID [facility] Last Admin: 07/19/18 16:28 Dose: 2 tab Acyclovir 500 mg/ Sodium (Chloride) 100 mls @ 100 mls/hr IV Q12H [facility]; Protocol Last Admin: 07/19/18 12:47 Dose: 100 mls/hr Vancomycin HCl 1 gm/ Sodium (Chloride) 250 mls @ 166.667 mls/hr IVPB Q24H [facility]; Protocol Last Admin: 07/19/18 12:48 Dose: 166.667 mls/hr Levofloxacin/Dextrose (Levaquin 750mg) 750 mg in 150 mls @ 100 mls/hr IVPB DAILY [facility]; Protocol Last Admin: 07/19/18 10:00 Dose: 100 mls/hr Insulin Human Regular (Humulin R) 0 units SC ACHS [facility]; Protocol Last Admin: 07/19/18 18:05 Dose: Not Given Labetalol HCl (Trandate) 10 mg IVP Q6H PRN PRN Reason: Other Last Admin: 07/19/18 12:42 Dose: 10 mg Lactobacillus Acidophilus (Bacid Acidophilus) 1 cap PO BID [facility] Last Admin: 07/19/18 16:27 Dose: 1 cap Lactulose (Enulose) 10 gm PO DAILY PRN PRN Reason: Constipation Last Admin: 07/15/18 12:55 Dose: 10 gm Magnesium Oxide (Mag-Ox) 400 mg PO BID [facility] Last Admin: 07/19/18 16:28 Dose: 400 mg Methylprednisolone (Solu-Medrol) 40 mg IVP Q12 [facility] Ondansetron HCl (Zofran Inj) 4 mg IVP Q4 PRN PRN Reason: Nausea/Vomiting Last Admin: 07/18/18 03:15 Dose: 4 mg Pantoprazole Sodium (Protonix Ec Tab) 40 mg PO DAILY [facility] Last Admin: 07/19/18 10:03 Dose: 40 mg Quetiapine Fumarate (Seroquel) 200 mg PO HS [facility] Last Admin: 07/18/18 22:20 Dose: 200 mg Senna/Docusate Sodium (Senokot S 50 Mg-8.6 Mg) 2 tab PO BID [facility] Last Admin: 07/19/18 16:29 Dose: Not Given Trimethoprim/Sulfamethoxazole (Sulfatrim Pediatric Susp) 20 ml PO Q12 [facility]; Protocol Stop: 08/16/18 08:00 Last Admin: 07/19/18 09:59 Dose: Not Given - Labs Labs: 07/19/18 04:30 07/19/18 04:30 PT 11.5 Seconds (9.8-13.1) 07/11/18 19:12 INR 1.0 07/11/18 19:12 APTT 28.9 Seconds (25.6-37.1) 07/11/18 19:12 - Constitutional Appears: Non-toxic, Chronically Ill - Head Exam Head Exam: NORMOCEPHALIC - Eye Exam Eye Exam: absent: Scleral icterus - ENT Exam ENT Exam: Mucous Membranes Dry - Neck Exam Neck Exam: absent: Lymphadenopathy - Respiratory Exam Respiratory Exam: Decreased Breath Sounds - Cardiovascular Exam Cardiovascular Exam: REGULAR RHYTHM - GI/Abdominal Exam GI & Abdominal Exam: Distended - Rectal Exam Rectal Exam: Deferred - Exam Exam: NORMAL INSPECTION Assessment and Plan (1) Bipolar disorder, current episode mixed, moderate Status: Acute (2) COPD (chronic obstructive pulmonary disease) Status: Acute (3) HIV (human immunodeficiency virus infection) Status: Acute (4) Cerebrovascular accident (CVA) with hemiparesis Status: Acute (5) Cerebrovascular accident (CVA) with right hemiparesis Status: Acute (6) Respiratory failure Status: Acute (7) Influenza A Status: Acute (8) Rhabdomyolysis Status: Acute (9) JOE (acute kidney injury) Status: Acute - Assessment and Plan (Free Text) Assessment: cont iv antibiotics
[2018-07-19] MEDS ORDERED: methylPREDNISolone 40 MG in Sodium Chloride 0.9% 50 ML IVPB SCH (21:00)
[2018-07-19] MEDS: MethylPREDNISolone 40 mg Vial IVP SCH (21:19)
[2018-07-20] MEDS: Acyclovir 500 MG in Sodium Chloride 0.9% 100 ML IV SCH ×2 (01:11→13:38)
[2018-07-20] MEDS: Albuterol-Ipratrop 3 mg / 0.5 (3 ml) UD INH SCH ×5 (03:52→19:09)
[2018-07-20 05:42] LABS: HEMOGLOBIN 11.4 g/dL (12.0-16.0); MEAN CELL VOLUME 82.6 fl (81.0-99.0); MEAN CORPUSCULAR HEMOGLOBIN 26.7 pg (27.0-31.0); MEAN CORPUSCULAR HGB CONC 32.3 g/dL (33.0-37.0); RBC 4.28 Mil/uL (3.80-5.20); RED CELL DISTRIBUTION WIDTH 17.8 % (11.5-14.5); WHITE BLOOD COUNT 3.7 K/uL (4.8-10.8)
[2018-07-20 05:54] LABS: ALB/GLOB RATIO 0.8 (1.0-2.1); ALBUMIN 3.4 g/dL (3.5-5.0); ALT/SGPT 35 U/L (9-52); AST/SGOT 36 U/L (14-36); BLOOD UREA NITROGEN 27 mg/dl (7-17); CALCIUM 8.6 mg/dL (8.4-10.2); GFR NON-AFRICAN AMERICAN 57
--- NOTE | 2018-07-20 07:45 | RAD ---
Date of service: 07/20/2018 HISTORY: Pneumonia COMPARISON: Frontal chest radiograph 07/18/2018. FINDINGS: LUNGS: Diminishing infiltrate seen the mid to inferior right lung zone with dense linear atelectasis identified in the interval at the right base. Borderline left basilar infiltrate medially. PLEURA: No significant pleural effusion identified, no pneumothorax apparent. CARDIOVASCULAR: No aortic atherosclerotic calcification present. Normal cardiac size. No pulmonary vascular congestion. OSSEOUS STRUCTURES: No significant abnormalities. VISUALIZED UPPER ABDOMEN: Normal. OTHER FINDINGS: None. IMPRESSION: Improving infiltrate mid to inferior right lung zones with dense linear atelectasis present the right base in the interval. Borderline patchy density medial left base.
[2018-07-20] MEDS ORDERED: Acetylcysteine 20% Inhal Soln (4ml) PO SCH (09:00)
[2018-07-20] MEDS: MethylPREDNISolone 40 mg Vial IVP SCH ×2 (10:06→21:55)
[2018-07-20] MEDS: Magnesium Oxide 400 mg Tab UD PO SCH ×2 (10:07→16:08)
[2018-07-20] MEDS: Docusate-Senna 50 mg-8.6 mg Tab PO SCH ×2 (10:07→16:09)
[2018-07-20] MEDS: Pantoprazole 40 mg EC Tab PO SCH (10:08)
[2018-07-20] MEDS: guaiFENesin-DM 600-30 mg ER Tab PO SCH ×2 (10:08→16:08)
[2018-07-20] MEDS: Emtricitabine-Tenofovir 200 mg-300 mg Tab PO SCH (10:09)
[2018-07-20] MEDS: levoFLOXacin 750 mg in D5W 750 MG/150 ML BAG IVPB SCH (10:17)
[2018-07-20] MEDS: Lactobacillus Acidophilus 500 MU Cap PO SCH ×2 (10:17→16:11)
--- NOTE | 2018-07-20 11:53 | CP.PCM.PN ---
Subjective - Date & Time of Evaluation Date of Evaluation: 07/20/18 Time of Evaluation: 11:53 - Subjective Subjective: OOB TO CHAIR TODAY LESS AGITATED SOB IMPROVED Objective - Vital Signs/Intake and Output Vital Signs (last 24 hours): Temp Pulse Resp BP Pulse Ox 98.9 F 75 25 H 144/75 93 L 07/20/18 08:00 07/20/18 10:09 07/20/18 08:00 07/20/18 10:09 07/20/18 08:00 Intake and Output: 07/20/18 07/20/18 06:59 18:59 Intake Total 200 Balance 200 - Medications Medications: Current Medications Acetaminophen (Tylenol 650mg/20.3ml Solution Ud) 650 mg PO Q4H PRN PRN Reason: Temperature Last Admin: 07/13/18 23:42 Dose: 650 mg Acetylcysteine (Acetylcysteine 20%) 3 ml PO BID [facility] Stop: 07/21/18 17:01 Albuterol/Ipratropium (Duoneb 3 Mg/0.5 Mg (3 Ml) Ud) 3 ml INH RQ4 [facility] Last Admin: 07/20/18 11:10 Dose: 3 ml Amlodipine Besylate (Norvasc) 2.5 mg PO DAILY [facility] Last Admin: 07/20/18 10:09 Dose: 2.5 mg Atorvastatin Calcium (Lipitor) 20 mg PO DAILY@2200 [facility] Last Admin: 07/19/18 21:19 Dose: 20 mg Dextrose (Dextrose 50% Inj) 0 ml IV STAT PRN; Protocol PRN Reason: Hypoglycemia Protocol Dextrose (Glutose 15) 0 gm PO ONCE PRN; Protocol PRN Reason: Hypoglycemia Protocol Dolutegravir Sodium (Tivicay) 50 mg PO DAILY [facility]; Protocol Last Admin: 07/20/18 10:10 Dose: 50 mg Duloxetine HCl (Cymbalta) 30 mg PO BID [facility] Last Admin: 07/20/18 10:08 Dose: 30 mg Emtricitabine/Tenofovir (Truvada 200 Mg-300 Mg) 1 tab PO DAILY [facility]; Protocol Last Admin: 07/20/18 10:09 Dose: 1 tab Enalaprilat (Vasotec Iv) 1.25 mg IV Q6 PRN PRN Reason: hypertension Glucagon (Glucagen Diagnostic Kit) 0 mg IM STAT PRN; Protocol PRN Reason: Hypoglycemia Protocol Guaifenesin/Dextromethorphan (Mucinex-Dm 600-30 Mg) 2 tab PO BID [facility] Last Admin: 07/20/18 10:08 Dose: 2 tab Acyclovir 500 mg/ Sodium (Chloride) 100 mls @ 100 mls/hr IV Q12H [facility]; Protocol Last Admin: 07/20/18 01:11 Dose: 100 mls/hr Vancomycin HCl 1 gm/ Sodium (Chloride) 250 mls @ 166.667 mls/hr IVPB Q24H [facility]; Protocol Last Admin: 07/19/18 12:48 Dose: 166.667 mls/hr Levofloxacin/Dextrose (Levaquin 750mg) 750 mg in 150 mls @ 100 mls/hr IVPB DAILY [facility]; Protocol Last Admin: 07/20/18 10:17 Dose: 100 mls/hr Insulin Human Regular (Humulin R) 0 units SC ACHS [facility]; Protocol Last Admin: 07/19/18 21:20 Dose: Not Given Labetalol HCl (Trandate) 10 mg IVP Q6H PRN PRN Reason: Other Last Admin: 07/19/18 19:52 Dose: 10 mg Lactobacillus Acidophilus (Bacid Acidophilus) 1 cap PO BID [facility] Last Admin: 07/20/18 10:17 Dose: 1 cap Lactulose (Enulose) 10 gm PO DAILY PRN PRN Reason: Constipation Last Admin: 07/15/18 12:55 Dose: 10 gm Magnesium Oxide (Mag-Ox) 400 mg PO BID [facility] Last Admin: 07/20/18 10:07 Dose: 400 mg Methylprednisolone (Solu-Medrol) 40 mg IVP Q12 [facility] Last Admin: 07/20/18 10:06 Dose: 40 mg Ondansetron HCl (Zofran Inj) 4 mg IVP Q4 PRN PRN Reason: Nausea/Vomiting Last Admin: 07/18/18 03:15 Dose: 4 mg Pantoprazole Sodium (Protonix Ec Tab) 40 mg PO DAILY [facility] Last Admin: 07/20/18 10:08 Dose: 40 mg Quetiapine Fumarate (Seroquel) 200 mg PO HS [facility] Last Admin: 07/19/18 21:22 Dose: 200 mg Senna/Docusate Sodium (Senokot S 50 Mg-8.6 Mg) 2 tab PO BID [facility] Last Admin: 07/20/18 10:07 Dose: Not Given - Labs Labs: 07/20/18 04:25 07/20/18 04:25 PT 11.5 Seconds (9.8-13.1) 07/11/18 19:12 INR 1.0 07/11/18 19:12 APTT 28.9 Seconds (25.6-37.1) 07/11/18 19:12 - Constitutional Appears: No Acute Distress - Head Exam Head Exam: ATRAUMATIC, NORMAL INSPECTION, NORMOCEPHALIC - Eye Exam Eye Exam: EOMI, Normal appearance, PERRL Pupil Exam: NORMAL ACCOMODATION, PERRL - ENT Exam ENT Exam: Mucous Membranes Moist, Normal Exam - Neck Exam Neck Exam: Full ROM, Normal Inspection. absent: Lymphadenopathy - Respiratory Exam Respiratory Exam: Prolonged Expiratory Phase, NORMAL BREATHING PATTERN - Cardiovascular Exam Cardiovascular Exam: REGULAR RHYTHM, +S1, +S2. absent: Murmur - GI/Abdominal Exam GI & Abdominal Exam: Soft, Normal Bowel Sounds. absent: Tenderness - Rectal Exam Rectal Exam: NORMAL INSPECTION - Extremities Exam Extremities Exam: Full ROM, Normal Capillary Refill, Normal Inspection. absent: Joint Swelling, Pedal Edema - Back Exam Back Exam: NORMAL INSPECTION - Neurological Exam Neurological Exam: Alert, Awake, CN II-XII Intact Additional comments: R ARM WEAKNESS - Skin Skin Exam: Dry, Intact, Normal Color, Warm Assessment and Plan - Assessment and Plan (Free Text) Assessment: CVA RESPIRATORY FAILURE--IMPROVED Plan: CONTINUE CURRENT RX
[2018-07-20] MEDS: Insulin Regular 100 units/ml SC SCH ×3 (12:00→22:04)
--- NOTE | 2018-07-20 13:02 | CP.PCM.PN ---
Subjective - Date & Time of Evaluation Date of Evaluation: 07/20/18 Time of Evaluation: 13:01 - Subjective Subjective: Neurology Follow-Up Note: Mrs. Kilgore was evaluated this afternoon. She remains extubated. She is able to follow some simple commands. Pt has no complaints today aside from that she wants to go home. Today she is more talkative than before. She denies h/a, dizziness, visual changes, chest pain, palpitation, sob, n/v/d. Objective - Vital Signs/Intake and Output Vital Signs (last 24 hours): Temp Pulse Resp BP Pulse Ox 98.6 F 73 38 H 153/91 H 96 07/20/18 12:00 07/20/18 12:00 07/20/18 12:00 07/20/18 12:00 07/20/18 12:00 Intake and Output: 07/20/18 07/20/18 06:59 18:59 Intake Total 200 100 Balance 200 100 - Medications Medications: Current Medications Acetaminophen (Tylenol 650mg/20.3ml Solution Ud) 650 mg PO Q4H PRN PRN Reason: Temperature Last Admin: 07/13/18 23:42 Dose: 650 mg Acetylcysteine (Acetylcysteine 20%) 3 ml PO BID [facility] Stop: 07/21/18 17:01 Albuterol/Ipratropium (Duoneb 3 Mg/0.5 Mg (3 Ml) Ud) 3 ml INH RQ4 [facility] Last Admin: 07/20/18 11:10 Dose: 3 ml Amlodipine Besylate (Norvasc) 2.5 mg PO DAILY [facility] Last Admin: 07/20/18 10:09 Dose: 2.5 mg Atorvastatin Calcium (Lipitor) 20 mg PO DAILY@2200 [facility] Last Admin: 07/19/18 21:19 Dose: 20 mg Dextrose (Dextrose 50% Inj) 0 ml IV STAT PRN; Protocol PRN Reason: Hypoglycemia Protocol Dextrose (Glutose 15) 0 gm PO ONCE PRN; Protocol PRN Reason: Hypoglycemia Protocol Dolutegravir Sodium (Tivicay) 50 mg PO DAILY [facility]; Protocol Last Admin: 07/20/18 10:10 Dose: 50 mg Duloxetine HCl (Cymbalta) 30 mg PO BID [facility] Last Admin: 07/20/18 10:08 Dose: 30 mg Emtricitabine/Tenofovir (Truvada 200 Mg-300 Mg) 1 tab PO DAILY [facility]; Protocol Last Admin: 07/20/18 10:09 Dose: 1 tab Enalaprilat (Vasotec Iv) 1.25 mg IV Q6 PRN PRN Reason: hypertension Glucagon (Glucagen Diagnostic Kit) 0 mg IM STAT PRN; Protocol PRN Reason: Hypoglycemia Protocol Guaifenesin/Dextromethorphan (Mucinex-Dm 600-30 Mg) 2 tab PO BID [facility] Last Admin: 07/20/18 10:08 Dose: 2 tab Acyclovir 500 mg/ Sodium (Chloride) 100 mls @ 100 mls/hr IV Q12H [facility]; Protocol Last Admin: 07/20/18 01:11 Dose: 100 mls/hr Vancomycin HCl 1 gm/ Sodium (Chloride) 250 mls @ 166.667 mls/hr IVPB Q24H [facility]; Protocol Last Admin: 07/19/18 12:48 Dose: 166.667 mls/hr Levofloxacin/Dextrose (Levaquin 750mg) 750 mg in 150 mls @ 100 mls/hr IVPB DAILY [facility]; Protocol Last Admin: 07/20/18 10:17 Dose: 100 mls/hr Insulin Human Regular (Humulin R) 0 units SC ACHS [facility]; Protocol Last Admin: 07/19/18 21:20 Dose: Not Given Labetalol HCl (Trandate) 10 mg IVP Q6H PRN PRN Reason: Other Last Admin: 07/19/18 19:52 Dose: 10 mg Lactobacillus Acidophilus (Bacid Acidophilus) 1 cap PO BID [facility] Last Admin: 07/20/18 10:17 Dose: 1 cap Lactulose (Enulose) 10 gm PO DAILY PRN PRN Reason: Constipation Last Admin: 07/15/18 12:55 Dose: 10 gm Magnesium Oxide (Mag-Ox) 400 mg PO BID [facility] Last Admin: 07/20/18 10:07 Dose: 400 mg Methylprednisolone (Solu-Medrol) 40 mg IVP Q12 [facility] Last Admin: 07/20/18 10:06 Dose: 40 mg Ondansetron HCl (Zofran Inj) 4 mg IVP Q4 PRN PRN Reason: Nausea/Vomiting Last Admin: 07/18/18 03:15 Dose: 4 mg Pantoprazole Sodium (Protonix Ec Tab) 40 mg PO DAILY [facility] Last Admin: 07/20/18 10:08 Dose: 40 mg Quetiapine Fumarate (Seroquel) 200 mg PO HS [facility] Last Admin: 07/19/18 21:22 Dose: 200 mg Senna/Docusate Sodium (Senokot S 50 Mg-8.6 Mg) 2 tab PO BID [facility] Last Admin: 07/20/18 10:07 Dose: Not Given - Labs Labs: 07/20/18 04:25 07/20/18 04:25 PT 11.5 Seconds (9.8-13.1) 07/11/18 19:12 INR 1.0 07/11/18 19:12 APTT 28.9 Seconds (25.6-37.1) 07/11/18 19:12 - Constitutional Appears: Non-toxic, No Acute Distress - Head Exam Head Exam: NORMAL INSPECTION, NORMOCEPHALIC - Eye Exam Eye Exam: EOMI, PERRL Pupil Exam: NORMAL ACCOMODATION - ENT Exam ENT Exam: Mucous Membranes Moist - Neck Exam Neck Exam: Full ROM - Respiratory Exam Respiratory Exam: NORMAL BREATHING PATTERN - Cardiovascular Exam Cardiovascular Exam: REGULAR RHYTHM - Extremities Exam Extremities Exam: absent: Calf Tenderness, Full ROM, Pedal Edema Additional comments: RUE and RLE flaccid - Neurological Exam Neurological Exam: Alert, Awake, CN II-XII Intact, Reflexes Normal. 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 Incompletely visualize areas of cortical infarction watershed area left high posterior parietal region. No new/acute findings or interval changes. Limitations of the current examination: Patient related motion induced artifact. -MRI Brain (07/18/18): Interval hemorrhagic transformation of subacute infarction in the left posterior centrum semiovale. Interval evolution of subacute bilateral MCA INSOLE BUFFER watershed territories and left deep white matter border zone territory, and small subacute infarction in the posterior limb of the left internal capsule. Mild age-related global parenchymal volume loss. 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 -CT Head (07/17/18): Limited motion degraded study. Small elliptical shaped hemorrhage left external capsule. Subacute infarct changes in the left posterior temporal and posterior frontoparietal region less well seen on this exam it compared to high-resolution MRI. -MRI Brain (07/11/18): 1. Multifocal late acute/early subacute infarctions in the left posterior parietal lobe. 2. Small foci of late acute/early subacute infarctions in bilateral parietal subcortical white matter. 3. Increased FLAIR hyperintensity in the left parietal cortical sulci is nonspecific, the differential considerations include subarachnoid hemorrhage, oxygen/anesthesia induced hyperintensity or nonspecific/proteinaceous hyperintense CSF. Clinical follow-up is advised and if clinically indicated, correlation with CT scan may be performed to exclude subarachnoid hemorrhage. -CT Head (07/11/18): Moderate nonspecific white matter changes. More prominent hypodense focus noted in the left centrum semiovale region. MRI with diffusion imaging suggested for further evaluation if indicated. Increased attenuation of the bilateral maxillary sinus contents may indicate proteinaceous material or fungal colonization. Mucosal thickening of the ethmoid air cells. -ECHO (07/12/18): EF 55-60% -Continue to hold Lovenox and ASA for now as most recent CT Head and Brain MRI show hemorrhagic conversion. -Maintain BP control -CTA head and neck to be done nikolay; still pending renal function improvement. -VEEG read by Dr. Dennis: shows slowing but no seizure activity. -Continue Statin. -Continue rehab and therapy services. -Continue to treat and manage other medical issues. -Continue ICU management -Notify neuro team of any changes in pt's condition. Case discussed with Dr. Dennis Status: Acute
--- NOTE | 2018-07-20 14:37 | CP.PCM.PN ---
Subjective - Date & Time of Evaluation Date of Evaluation: 07/20/18 Time of Evaluation: 08:00 - Subjective Subjective: awake alert moving left side Objective - Vital Signs/Intake and Output Vital Signs (last 24 hours): Temp Pulse Resp BP Pulse Ox 98.6 F 73 38 H 153/91 H 96 07/20/18 12:00 07/20/18 12:00 07/20/18 12:00 07/20/18 12:00 07/20/18 12:00 Intake and Output: 07/20/18 07/20/18 06:59 18:59 Intake Total 200 100 Balance 200 100 - Medications Medications: Current Medications Acetaminophen (Tylenol 650mg/20.3ml Solution Ud) 650 mg PO Q4H PRN PRN Reason: Temperature Last Admin: 07/13/18 23:42 Dose: 650 mg Acetylcysteine (Acetylcysteine 20%) 3 ml PO BID [facility] Stop: 07/21/18 17:01 Albuterol/Ipratropium (Duoneb 3 Mg/0.5 Mg (3 Ml) Ud) 3 ml INH RQ4 [facility] Last Admin: 07/20/18 11:10 Dose: 3 ml Amlodipine Besylate (Norvasc) 2.5 mg PO DAILY [facility] Last Admin: 07/20/18 10:09 Dose: 2.5 mg Atorvastatin Calcium (Lipitor) 20 mg PO DAILY@2200 [facility] Last Admin: 07/19/18 21:19 Dose: 20 mg Dextrose (Dextrose 50% Inj) 0 ml IV STAT PRN; Protocol PRN Reason: Hypoglycemia Protocol Dextrose (Glutose 15) 0 gm PO ONCE PRN; Protocol PRN Reason: Hypoglycemia Protocol Dolutegravir Sodium (Tivicay) 50 mg PO DAILY [facility]; Protocol Last Admin: 07/20/18 10:10 Dose: 50 mg Duloxetine HCl (Cymbalta) 30 mg PO BID [facility] Last Admin: 07/20/18 10:08 Dose: 30 mg Emtricitabine/Tenofovir (Truvada 200 Mg-300 Mg) 1 tab PO DAILY [facility]; Protocol Last Admin: 07/20/18 10:09 Dose: 1 tab Enalaprilat (Vasotec Iv) 1.25 mg IV Q6 PRN PRN Reason: hypertension Glucagon (Glucagen Diagnostic Kit) 0 mg IM STAT PRN; Protocol PRN Reason: Hypoglycemia Protocol Guaifenesin/Dextromethorphan (Mucinex-Dm 600-30 Mg) 2 tab PO BID [facility] Last Admin: 07/20/18 10:08 Dose: 2 tab Acyclovir 500 mg/ Sodium (Chloride) 100 mls @ 100 mls/hr IV Q12H [facility]; Protocol Last Admin: 07/20/18 13:38 Dose: 100 mls/hr Vancomycin HCl 1 gm/ Sodium (Chloride) 250 mls @ 166.667 mls/hr IVPB Q24H [facility]; Protocol Last Admin: 07/20/18 13:37 Dose: 166.667 mls/hr Levofloxacin/Dextrose (Levaquin 750mg) 750 mg in 150 mls @ 100 mls/hr IVPB DAILY [facility]; Protocol Last Admin: 07/20/18 10:17 Dose: 100 mls/hr Insulin Human Regular (Humulin R) 0 units SC ACHS [facility]; Protocol Last Admin: 07/19/18 21:20 Dose: Not Given Labetalol HCl (Trandate) 10 mg IVP Q6H PRN PRN Reason: Other Last Admin: 07/19/18 19:52 Dose: 10 mg Lactobacillus Acidophilus (Bacid Acidophilus) 1 cap PO BID [facility] Last Admin: 07/20/18 10:17 Dose: 1 cap Lactulose (Enulose) 10 gm PO DAILY PRN PRN Reason: Constipation Last Admin: 07/15/18 12:55 Dose: 10 gm Magnesium Oxide (Mag-Ox) 400 mg PO BID [facility] Last Admin: 07/20/18 10:07 Dose: 400 mg Methylprednisolone (Solu-Medrol) 40 mg IVP Q12 [facility] Last Admin: 07/20/18 10:06 Dose: 40 mg Ondansetron HCl (Zofran Inj) 4 mg IVP Q4 PRN PRN Reason: Nausea/Vomiting Last Admin: 07/18/18 03:15 Dose: 4 mg Pantoprazole Sodium (Protonix Ec Tab) 40 mg PO DAILY [facility] Last Admin: 07/20/18 10:08 Dose: 40 mg Quetiapine Fumarate (Seroquel) 200 mg PO HS [facility] Last Admin: 07/19/18 21:22 Dose: 200 mg Senna/Docusate Sodium (Senokot S 50 Mg-8.6 Mg) 2 tab PO BID [facility] Last Admin: 07/20/18 10:07 Dose: Not Given - Labs Labs: 07/20/18 04:25 07/20/18 04:25 PT 11.5 Seconds (9.8-13.1) 07/11/18 19:12 INR 1.0 07/11/18 19:12 APTT 28.9 Seconds (25.6-37.1) 07/11/18 19:12 - Constitutional Appears: Non-toxic, Chronically Ill - Head Exam Head Exam: NORMOCEPHALIC - Eye Exam Pupil Exam: NORMAL ACCOMODATION - ENT Exam ENT Exam: Mucous Membranes Dry - Neck Exam Neck Exam: absent: Lymphadenopathy - Respiratory Exam Respiratory Exam: Decreased Breath Sounds - Cardiovascular Exam Cardiovascular Exam: REGULAR RHYTHM - GI/Abdominal Exam GI & Abdominal Exam: Distended, Soft, Diminished Bowel Sounds - Rectal Exam Rectal Exam: Deferred - Exam Exam: NORMAL INSPECTION - Extremities Exam Extremities Exam: Pedal Edema - Back Exam Back Exam: absent: CVA tenderness (L), CVA tenderness (R) - Neurological Exam Neurological Exam: Alert, Awake, CN II-XII Intact, Oriented x3 Neuro motor strength exam: Left Upper Extremity: 2/1, Right Upper Extremity: 4, Left Lower Extremity: 2/1, Right Lower Extremity: 4 - Psychiatric Exam Psychiatric exam: Depressed - Skin Skin Exam: Dry Assessment and Plan (1) Bipolar disorder, current episode mixed, moderate Status: Acute (2) COPD (chronic obstructive pulmonary disease) Status: Acute (3) HIV (human immunodeficiency virus infection) Status: Acute (4) Cerebrovascular accident (CVA) with hemiparesis Status: Acute (5) Cerebrovascular accident (CVA) with right hemiparesis Status: Acute (6) Respiratory failure Status: Acute (7) Influenza A Status: Acute (8) Rhabdomyolysis Status: Acute (9) JOE (acute kidney injury) Status: Acute - Assessment and Plan (Free Text) Assessment: cont iv antibiotics
--- NOTE | 2018-07-20 16:19 | CP.PCM.PN ---
Subjective - Date & Time of Evaluation Date of Evaluation: 07/20/18 Time of Evaluation: 09:45 - Subjective Subjective: 58-year-old female seen and examined sitting up in chair on O2 NC (self- extubated 07/16, refusing high flow 07/17). Patient awake, alert, afebrile and answering simple questions although speech is slurred and decreased from yesterday. Unable to move right extremities, strength 0. Willing to participate in PT. Tachypneic, saturating low 90's on 2L NC but lungs are clear to auscultation. BP 150's/70's. Does not appear to be in any acute distress but remains confused and disoriented. Objective - Vital Signs/Intake and Output Vital Signs (last 24 hours): Temp Pulse Resp BP Pulse Ox 97.4 F L 80 38 H 150/76 91 L 07/20/18 13:00 07/20/18 13:00 07/20/18 12:00 07/20/18 13:00 07/20/18 13:00 Intake and Output: 07/20/18 07/20/18 06:59 18:59 Intake Total 200 100 Balance 200 100 - Medications Medications: Current Medications Acetaminophen (Tylenol 650mg/20.3ml Solution Ud) 650 mg PO Q4H PRN PRN Reason: Temperature Last Admin: 07/13/18 23:42 Dose: 650 mg Acetylcysteine (Acetylcysteine 20%) 3 ml PO BID [facility] Stop: 07/21/18 17:01 Albuterol/Ipratropium (Duoneb 3 Mg/0.5 Mg (3 Ml) Ud) 3 ml INH RQ4 [facility] Last Admin: 07/20/18 15:16 Dose: 3 ml Amlodipine Besylate (Norvasc) 2.5 mg PO DAILY [facility] Last Admin: 07/20/18 10:09 Dose: 2.5 mg Atorvastatin Calcium (Lipitor) 20 mg PO DAILY@2200 [facility] Last Admin: 07/19/18 21:19 Dose: 20 mg Dextrose (Dextrose 50% Inj) 0 ml IV STAT PRN; Protocol PRN Reason: Hypoglycemia Protocol Dextrose (Glutose 15) 0 gm PO ONCE PRN; Protocol PRN Reason: Hypoglycemia Protocol Dolutegravir Sodium (Tivicay) 50 mg PO DAILY [facility]; Protocol Last Admin: 07/20/18 10:10 Dose: 50 mg Duloxetine HCl (Cymbalta) 30 mg PO BID [facility] Last Admin: 07/20/18 16:07 Dose: 30 mg Emtricitabine/Tenofovir (Truvada 200 Mg-300 Mg) 1 tab PO DAILY [facility]; Protocol Last Admin: 07/20/18 10:09 Dose: 1 tab Enalaprilat (Vasotec Iv) 1.25 mg IV Q6 PRN PRN Reason: hypertension Glucagon (Glucagen Diagnostic Kit) 0 mg IM STAT PRN; Protocol PRN Reason: Hypoglycemia Protocol Guaifenesin/Dextromethorphan (Mucinex-Dm 600-30 Mg) 2 tab PO BID [facility] Last Admin: 07/20/18 16:08 Dose: Not Given Acyclovir 500 mg/ Sodium (Chloride) 100 mls @ 100 mls/hr IV Q12H [facility]; Protocol Last Admin: 07/20/18 13:38 Dose: 100 mls/hr Vancomycin HCl 1 gm/ Sodium (Chloride) 250 mls @ 166.667 mls/hr IVPB Q24H [facility]; Protocol Last Admin: 07/20/18 13:37 Dose: 166.667 mls/hr Levofloxacin/Dextrose (Levaquin 750mg) 750 mg in 150 mls @ 100 mls/hr IVPB DAILY [facility]; Protocol Last Admin: 07/20/18 10:17 Dose: 100 mls/hr Insulin Human Regular (Humulin R) 0 units SC ACHS [facility]; Protocol Last Admin: 07/19/18 21:20 Dose: Not Given Labetalol HCl (Trandate) 10 mg IVP Q6H PRN PRN Reason: Other Last Admin: 07/19/18 19:52 Dose: 10 mg Lactobacillus Acidophilus (Bacid Acidophilus) 1 cap PO BID [facility] Last Admin: 07/20/18 16:11 Dose: 1 cap Lactulose (Enulose) 10 gm PO DAILY PRN PRN Reason: Constipation Last Admin: 07/15/18 12:55 Dose: 10 gm Magnesium Oxide (Mag-Ox) 400 mg PO BID [facility] Last Admin: 07/20/18 16:08 Dose: 400 mg Methylprednisolone (Solu-Medrol) 40 mg IVP Q12 [facility] Last Admin: 07/20/18 10:06 Dose: 40 mg Ondansetron HCl (Zofran Inj) 4 mg IVP Q4 PRN PRN Reason: Nausea/Vomiting Last Admin: 07/18/18 03:15 Dose: 4 mg Pantoprazole Sodium (Protonix Ec Tab) 40 mg PO DAILY [facility] Last Admin: 07/20/18 10:08 Dose: 40 mg Quetiapine Fumarate (Seroquel) 200 mg PO HS [facility] Last Admin: 07/19/18 21:22 Dose: 200 mg Senna/Docusate Sodium (Senokot S 50 Mg-8.6 Mg) 2 tab PO BID [facility] Last Admin: 07/20/18 16:09 Dose: Not Given - Labs Labs: 07/20/18 04:25 07/20/18 04:25 PT 11.5 Seconds (9.8-13.1) 07/11/18 19:12 INR 1.0 07/11/18 19:12 APTT 28.9 Seconds (25.6-37.1) 07/11/18 19:12 - Constitutional Appears: Chronically Ill - Head Exam Head Exam: ATRAUMATIC, NORMAL INSPECTION - Respiratory Exam Respiratory Exam: Clear to Ausculation Bilateral, NORMAL BREATHING PATTERN. absent: Rhonchi, Respiratory Distress - Cardiovascular Exam Cardiovascular Exam: REGULAR RHYTHM, +S1, +S2 - GI/Abdominal Exam GI & Abdominal Exam: Soft. absent: Rigid, Tenderness - Back Exam Back Exam: NORMAL INSPECTION - Neurological Exam Neurological Exam: Awake Neuro motor strength exam: Left Upper Extremity: 4, Right Upper Extremity: 0, Left Lower Extremity: 4, Right Lower Extremity: 0 - Psychiatric Exam Psychiatric exam: Normal Affect, Normal Mood - Skin Skin Exam: Dry, Intact, Normal Color, Warm Assessment and Plan - Assessment and Plan (Free Text) Plan: Acute ischemic stroke CVA with R hemiparesis - MRI Brain (07/11): multifocal late acute/early subacte infarctions in L posterior parietal lobe, late acute/early subacute infarctions in L posterior parietal lobe, increased FLAIR hyperintensity in L cortical sulci (possibly subarachnoid hemorrhage, non-specific proteinaceous hyperintense CSF) - Video EEG monitoring as per Neurology, finished (Dr Dennis 07/17): VEEG showed slowing, but no seizures. - CT Head (07/17): small elliptical hemorrhage ext capsule - Neuro rec (Dr Dennis): Continue to hold Lovenox and ASA for now as most recent CT Head and Brain MRI show hemorrhagic conversion, Repeat CT Head in the morning 07/19/18 to evaluate the hemorrhage. Maintain BP control. CTA head and neck to be done nikolay; still pending renal function improvement. Continue ICU management. - Lasix 40 BID - Atorvastatin 20 mg PO 07/13-07/15 - PT rec (07/18): sub-acute rehab for PT - Continue PT/OT - Discontinue alberto catheter (07/18) - Potetnially d/c to sub-acute rehab tomorrow (07/21) Acute Respiratory failure - Likely secondary to Pneumonia - Self-extubated 07/16 - 4L O2 NC, SPO2 low 90's - As per nurse pt often removes oxygen and sats drop to mid-80's - As per pulmonology (Dr. Stahl 07/19/18): respiratory faiure improved, continue current rx - Acetylcysteine 20% 3ml PO BID inhalation started today Hypertension - As per neuro: maintain BP control - BP range overnight (144-153/75-91) - Norvasc 2.5 mg PO started today - Enalapril 1.25 mg IV Q6 PRN - Monitor BP Toxic metabolic encephalopathy - Likely secondary to CVA, drug use, seizure - Urine screen positive for opiates and bezodiazepines - Laculose 10 gm daily PRN, last administered 07/15/18 Feeding - Passed swallow eval (07/17) - Advanced diet to normal, tolerating well (07/18) Influenza A viral infection - Afebrile, WBC wnl (5.7) - S/p 5 day course of Tamiflu 75mg Community acquired Pneumonia - Afebrile, no white count, lactate 0.9 - ID consult, Dr Velazco. consider HERMILA when feasible to r/o vegetation, clot, other - Levaquin 750 mg IV advanced to Q24H, renal function improving (previously Q48H began 07/13) - S/P Vancomycin 1gm Q24H, 3 doses, vanc trough 07/17/18: 12.3 - CXR (07/16): fluid overload; lasix 40 mg IVP BID - Duoneb Q4H Acute renal injury - Dehydration improving, CPK 800 therefor rhabdomyolysis not likely the cause of JOE - BUN/Cr 27/1.0 - Improving Hypokalemia - Resolved, K 3.8 - s/p KCl 40 mEq PO and 400 mg M BID (07/18/18), 40 mEq KCl (07/19/18) - Follow up CMP HIV - HAART resumed (Tivicay 50mg daily and Truvada 200mg-300mg daily) - CD4 = 135 - Screen for opportunistic infections - Acyclovir 500mg Q12H and Bactrim 20 ml Q12H for prophylaxis - ID consult, Dr Velazco. Will follow recs Elevated troponins - 07/02/18: 3.5100, 3.6000, 3.1800 - As per cardiology (Dr Zahra Guevara 07/12): altered mental status probably secondary to drug over Dose. acute kidney injury with elevated troponin levels probably secondary to rhabdomyolysis. At this juncture the patient is hemodynamically stable. - Probably secondary to rhabdomyolysis - CPK serum levels (07/11: 1062, 07/12: 1332, 07/12: 1359, 07/13: 838) Chronic hepatitis C - Chronic - HCV viral load pending final result - ID consult, Dr Velazco Prophylaxis - Lovenox 30mg daily
--- NOTE | 2018-07-20 17:32 | PN ---
DATE: 07/20/2018 LOCATION: The patient in ICU, bed 423. TIME SPENT: 35 minutes. SUBJECTIVE: The patient is seen and evaluated at the bedside. Past medical, surgical, family, social history reviewed as noted in history and physical. Case discussed in multidisciplinary ICU rounds this morning. A 58-year-old female with past medical history of HIV positive, substance abuse, asthma, bipolar disorder, hepatis C, PENICILLIN ALLERGY, seizure disorder, admitted to emergency room with altered mental status, suspected opioid and benzodiazepine overdose indurated and placed on mechanical ventilation, currently sulfa extubated, on oxygen supplement, remains out of bed to chair, alert and awake. Follows commands appropriate, tolerating p.o. feeds. Complaining of reduced strength on the right upper and right lower extremity. PHYSICAL EXAMINATION: VITAL SIGNS: Temperature 98.9, heart rate 75, blood pressure 144/75, respiratory rate 25, oxygen saturation 93%. Intake 67, output 400, positive balance 367. Weight 158 pounds. HEAD, EYES, EARS, NOSE, AND THROAT: Extraocular muscles intact. Pupils are equal, round and reactive to light. CHEST: Bilateral breath sounds diminished in intensity. Scattered rhonchi bilaterally. HEART: Rhythm regular. S1, S2 normal. ABDOMEN: Bowel sounds present, soft and nontender. EXTREMITIES: Trace pedal edema. NEURO: Reduced strength on the right upper and lower extremities. 4/5 left upper and left lower extremity. Deep tendon reflexes are brisk, plantar, equivocal. CURRENT MEDICATIONS: Tylenol 650 every 4 hours p.r.n., acyclovir 500 mg IV every 12 hours, albuterol and Atrovent inhalation every 4 hours, amlodipine 2.5 mg daily, Lipitor 20 mg p.o. daily, dextrose 50% for hypoglycemia protocol, p.o. once p.r.n., Tivicay 50 mg p.o. daily, Cymbalta 30 mg p.o. twice daily, Truvada 200 mg/300 mg daily, Vasotec 1.25 mg IV every 6 hours, guaifenesin with dextromethorphan 600/30 mg two tablets b.i.d., Accu-Chek with regular insulin coverage, labetalol 10 mg IV every 6 hours p.r.n., lactobacillus one capsule p.o. twice daily, lactulose 10 g p.o. daily, levofloxacin 750 mg IV daily, magnesium oxide 400 mg twice daily, Solu-Medrol 40 mg IV every 12 hours, Protonix 40 mg p.o. daily, Seroquel 200 mg p.o. every bedtime, Senokot 50 mg two tablets b.i.d., and vancomycin 1 g IV daily. LABORATORY DATA: RPR nonreactive. Cryptococcus antigen negative. Hepatitis A IgM antibody negative. Hepatitis B antigen core antibody negative. Hepatitis C antibody negative. Chemoprophylaxis influenza positive. Group B streptococcus antigen negative. Legionella pneumonia negative. WBC 3.7, hemoglobin 11.4, hematocrit 35.4, and platelet count 245. PT 11.5, INR 1, and PTT 28.9. ABG pending. SMA-7: Sodium 144, potassium 3.8, chloride 108, CO2 25, blood urea nitrogen 27, creatinine 1, random glucose 119, calcium 8.6, phosphorus 3.7, magnesium 2, total bilirubin 0.4, AST 36, ALT 72, total protein 7.8, albumin 3.4. Albumin globulin ratio 0.8. Urine analysis: Micro; wbc 9, toxicology positive for opioids and benzodiazepines. Immunology, absolute CD4 count 134, group A isolated. Nasal smear, MRSA negative. Urine culture no growth. Blood culture no growth. Chest x-ray, improving infiltrate mid to inferior right lung muscle. IMPRESSION: 1. Neurologic: Alert and awake, follows commands appropriate. CT head showed left frontoparietal hemorrhagic conversion for subacute infarct, right middle cerebral artery infarct. 2. Pulmonary: Status post respiratory failure, suspected pneumonia, kindly on vancomycin and levofloxacin 750 mg daily. 3. Cardiac: No arrhythmias noted. 4. Infectious Disease: Right lower lobe pneumonia. Human immunodeficiency virus positive. Continue maintenance medications. 5. Psychiatric: History of bipolar disorder, on Seroquel 200 mg p.o. at bedtime. 6. Renal: No electrolyte abnormalities. Renal function improved. Albumin 3.4 mildly reduced. 7. Keep head of bed 30 degree up. Continue occupational therapy and physical therapy as some are tolerated. Closely monitor respiratory status. Caden Mejía MD [facility] # [id number]
[2018-07-20] MEDS ORDERED: Acetaminophen 650mg/20.3ml solution UD PO ONE (18:13)
[2018-07-21] MEDS: Albuterol-Ipratrop 3 mg / 0.5 (3 ml) UD INH SCH ×6 (00:43→19:39)
[2018-07-21] MEDS: Acetylcysteine 20% Inhal Soln (4ml) INH SCH ×2 (07:43→19:40)
[2018-07-21] MEDS: Insulin Regular 100 units/ml SC SCH ×4 (08:00→22:30)
[2018-07-21] MEDS: Magnesium Oxide 400 mg Tab UD PO SCH ×2 (10:10→17:35)
[2018-07-21] MEDS: guaiFENesin-DM 600-30 mg ER Tab PO SCH ×2 (10:11→17:35)
[2018-07-21] MEDS: Pantoprazole 40 mg EC Tab PO SCH (10:11)
[2018-07-21] MEDS: Docusate-Senna 50 mg-8.6 mg Tab PO SCH ×2 (10:14→17:36)
[2018-07-21] MEDS: MethylPREDNISolone 40 mg Vial IVP SCH ×2 (10:14→21:32)
[2018-07-21] MEDS: Emtricitabine-Tenofovir 200 mg-300 mg Tab PO SCH (10:15)
[2018-07-21] MEDS: Lactobacillus Acidophilus 500 MU Cap PO SCH ×2 (10:16→17:34)
--- NOTE | 2018-07-21 10:32 | CP.PCM.PN ---
Subjective - Date & Time of Evaluation Date of Evaluation: 07/21/18 Time of Evaluation: 10:33 - Subjective Subjective: AWAKE AND ALERT NO SOB Objective - Vital Signs/Intake and Output Vital Signs (last 24 hours): Temp Pulse Resp BP Pulse Ox 99.1 F 69 18 155/85 H 93 L 07/21/18 07:53 07/21/18 10:11 07/21/18 07:53 07/21/18 10:11 07/21/18 07:53 - Medications Medications: Current Medications Acetaminophen (Tylenol 650mg/20.3ml Solution Ud) 650 mg PO Q4H PRN PRN Reason: Temperature Last Admin: 07/13/18 23:42 Dose: 650 mg Acetylcysteine (Acetylcysteine 20%) 2 ml INH RBID [facility] Stop: 07/22/18 08:01 Last Admin: 07/21/18 07:43 Dose: 2 ml Albuterol/Ipratropium (Duoneb 3 Mg/0.5 Mg (3 Ml) Ud) 3 ml INH RQ4 [facility] Last Admin: 07/21/18 07:43 Dose: 3 ml Amlodipine Besylate (Norvasc) 2.5 mg PO DAILY [facility] Last Admin: 07/21/18 10:11 Dose: 2.5 mg Atorvastatin Calcium (Lipitor) 20 mg PO DAILY@2200 [facility] Last Admin: 07/20/18 21:55 Dose: 20 mg Dextrose (Dextrose 50% Inj) 0 ml IV STAT PRN; Protocol PRN Reason: Hypoglycemia Protocol Dextrose (Glutose 15) 0 gm PO ONCE PRN; Protocol PRN Reason: Hypoglycemia Protocol Dolutegravir Sodium (Tivicay) 50 mg PO DAILY [facility]; Protocol Last Admin: 07/21/18 10:14 Dose: 50 mg Duloxetine HCl (Cymbalta) 30 mg PO BID [facility] Last Admin: 07/21/18 10:11 Dose: 30 mg Emtricitabine/Tenofovir (Truvada 200 Mg-300 Mg) 1 tab PO DAILY [facility]; Protocol Last Admin: 07/21/18 10:15 Dose: 1 tab Enalaprilat (Vasotec Iv) 1.25 mg IV Q6 PRN PRN Reason: hypertension Glucagon (Glucagen Diagnostic Kit) 0 mg IM STAT PRN; Protocol PRN Reason: Hypoglycemia Protocol Guaifenesin/Dextromethorphan (Mucinex-Dm 600-30 Mg) 2 tab PO BID [facility] Last Admin: 07/21/18 10:11 Dose: 2 tab Acyclovir 500 mg/ Sodium (Chloride) 100 mls @ 100 mls/hr IV Q12H [facility]; Protocol Last Admin: 07/20/18 13:38 Dose: 100 mls/hr Vancomycin HCl 1 gm/ Sodium (Chloride) 250 mls @ 166.667 mls/hr IVPB Q24H [facility]; Protocol Last Admin: 07/20/18 13:37 Dose: 166.667 mls/hr Levofloxacin/Dextrose (Levaquin 750mg) 750 mg in 150 mls @ 100 mls/hr IVPB DAILY [facility]; Protocol Last Admin: 07/20/18 10:17 Dose: 100 mls/hr Insulin Human Regular (Humulin R) 0 units SC ACHS [facility]; Protocol Last Admin: 07/21/18 08:00 Dose: Not Given Labetalol HCl (Trandate) 10 mg IVP Q6H PRN PRN Reason: Other Last Admin: 07/19/18 19:52 Dose: 10 mg Lactobacillus Acidophilus (Bacid Acidophilus) 1 cap PO BID [facility] Last Admin: 07/21/18 10:16 Dose: 1 cap Lactulose (Enulose) 10 gm PO DAILY PRN PRN Reason: Constipation Last Admin: 07/15/18 12:55 Dose: 10 gm Magnesium Oxide (Mag-Ox) 400 mg PO BID [facility] Last Admin: 07/21/18 10:10 Dose: 400 mg Methylprednisolone (Solu-Medrol) 40 mg IVP Q12 [facility] Last Admin: 07/21/18 10:14 Dose: 40 mg Ondansetron HCl (Zofran Inj) 4 mg IVP Q4 PRN PRN Reason: Nausea/Vomiting Last Admin: 07/18/18 03:15 Dose: 4 mg Pantoprazole Sodium (Protonix Ec Tab) 40 mg PO DAILY [facility] Last Admin: 07/21/18 10:11 Dose: 40 mg Quetiapine Fumarate (Seroquel) 200 mg PO HS [facility] Last Admin: 07/19/18 21:22 Dose: 200 mg Senna/Docusate Sodium (Senokot S 50 Mg-8.6 Mg) 2 tab PO BID [facility] Last Admin: 07/21/18 10:14 Dose: 2 tab - Labs Labs: 07/20/18 04:25 07/20/18 04:25 PT 11.5 Seconds (9.8-13.1) 07/11/18 19:12 INR 1.0 07/11/18 19:12 APTT 28.9 Seconds (25.6-37.1) 07/11/18 19:12 - Constitutional Appears: No Acute Distress - Head Exam Head Exam: ATRAUMATIC, NORMAL INSPECTION, NORMOCEPHALIC - Eye Exam Eye Exam: EOMI, Normal appearance, PERRL Pupil Exam: NORMAL ACCOMODATION, PERRL - ENT Exam ENT Exam: Mucous Membranes Moist, Normal Exam - Neck Exam Neck Exam: Full ROM, Normal Inspection. absent: Lymphadenopathy - Respiratory Exam Respiratory Exam: Decreased Breath Sounds, Prolonged Expiratory Phase, Rales, NORMAL BREATHING PATTERN - Cardiovascular Exam Cardiovascular Exam: REGULAR RHYTHM, +S1, +S2. absent: Murmur - GI/Abdominal Exam GI & Abdominal Exam: Soft, Normal Bowel Sounds. absent: Tenderness - Rectal Exam Rectal Exam: NORMAL INSPECTION - Extremities Exam Extremities Exam: Full ROM, Normal Capillary Refill, Normal Inspection. absent: Joint Swelling, Pedal Edema - Back Exam Back Exam: NORMAL INSPECTION - Neurological Exam Neurological Exam: Alert, Awake, CN II-XII Intact Additional comments: R ARM WEAKNESS - Psychiatric Exam Psychiatric exam: Normal Affect, Normal Mood - Skin Skin Exam: Dry, Intact, Normal Color, Warm Assessment and Plan - Assessment and Plan (Free Text) Assessment: PNEUMONIA RESPIRATORY FAILURE--RESOLVED CVA HX OF HIV DZ Plan: CONTINUE ANTIBIOTIC RX
--- NOTE | 2018-07-21 11:44 | CP.PCM.PN ---
Subjective - Date & Time of Evaluation Date of Evaluation: 07/21/18 Time of Evaluation: 09:15 - Subjective Subjective: Afebrile saturation 88-90% on RA denies CP no SOB + cough no abd pain Right hemiparesis Objective - Vital Signs/Intake and Output Vital Signs (last 24 hours): Temp Pulse Resp BP Pulse Ox 99.1 F 69 18 155/85 H 93 L 07/21/18 07:53 07/21/18 10:11 07/21/18 07:53 07/21/18 10:11 07/21/18 07:53 - Medications Medications: Current Medications Acetaminophen (Tylenol 650mg/20.3ml Solution Ud) 650 mg PO Q4H PRN PRN Reason: Temperature Last Admin: 07/13/18 23:42 Dose: 650 mg Acetylcysteine (Acetylcysteine 20%) 2 ml INH RBID [facility] Stop: 07/22/18 08:01 Last Admin: 07/21/18 07:43 Dose: 2 ml Albuterol/Ipratropium (Duoneb 3 Mg/0.5 Mg (3 Ml) Ud) 3 ml INH RQ4 [facility] Last Admin: 07/21/18 11:02 Dose: 3 ml Amlodipine Besylate (Norvasc) 2.5 mg PO DAILY [facility] Last Admin: 07/21/18 10:11 Dose: 2.5 mg Atorvastatin Calcium (Lipitor) 20 mg PO DAILY@2200 [facility] Last Admin: 07/20/18 21:55 Dose: 20 mg Dextrose (Dextrose 50% Inj) 0 ml IV STAT PRN; Protocol PRN Reason: Hypoglycemia Protocol Dextrose (Glutose 15) 0 gm PO ONCE PRN; Protocol PRN Reason: Hypoglycemia Protocol Dolutegravir Sodium (Tivicay) 50 mg PO DAILY [facility]; Protocol Last Admin: 07/21/18 10:14 Dose: 50 mg Duloxetine HCl (Cymbalta) 30 mg PO BID [facility] Last Admin: 07/21/18 10:11 Dose: 30 mg Emtricitabine/Tenofovir (Truvada 200 Mg-300 Mg) 1 tab PO DAILY [facility]; Protocol Last Admin: 07/21/18 10:15 Dose: 1 tab Enalaprilat (Vasotec Iv) 1.25 mg IV Q6 PRN PRN Reason: hypertension Glucagon (Glucagen Diagnostic Kit) 0 mg IM STAT PRN; Protocol PRN Reason: Hypoglycemia Protocol Guaifenesin/Dextromethorphan (Mucinex-Dm 600-30 Mg) 2 tab PO BID [facility] Last Admin: 07/21/18 10:11 Dose: 2 tab Acyclovir 500 mg/ Sodium (Chloride) 100 mls @ 100 mls/hr IV Q12H [facility]; Protocol Last Admin: 07/20/18 13:38 Dose: 100 mls/hr Vancomycin HCl 1 gm/ Sodium (Chloride) 250 mls @ 166.667 mls/hr IVPB Q24H [facility]; Protocol Last Admin: 07/20/18 13:37 Dose: 166.667 mls/hr Levofloxacin/Dextrose (Levaquin 750mg) 750 mg in 150 mls @ 100 mls/hr IVPB DAILY [facility]; Protocol Last Admin: 07/20/18 10:17 Dose: 100 mls/hr Insulin Human Regular (Humulin R) 0 units SC ACHS [facility]; Protocol Last Admin: 07/21/18 08:00 Dose: Not Given Labetalol HCl (Trandate) 10 mg IVP Q6H PRN PRN Reason: Other Last Admin: 07/19/18 19:52 Dose: 10 mg Lactobacillus Acidophilus (Bacid Acidophilus) 1 cap PO BID [facility] Last Admin: 07/21/18 10:16 Dose: 1 cap Lactulose (Enulose) 10 gm PO DAILY PRN PRN Reason: Constipation Last Admin: 07/15/18 12:55 Dose: 10 gm Magnesium Oxide (Mag-Ox) 400 mg PO BID [facility] Last Admin: 07/21/18 10:10 Dose: 400 mg Methylprednisolone (Solu-Medrol) 40 mg IVP Q12 [facility] Last Admin: 07/21/18 10:14 Dose: 40 mg Ondansetron HCl (Zofran Inj) 4 mg IVP Q4 PRN PRN Reason: Nausea/Vomiting Last Admin: 07/18/18 03:15 Dose: 4 mg Pantoprazole Sodium (Protonix Ec Tab) 40 mg PO DAILY [facility] Last Admin: 07/21/18 10:11 Dose: 40 mg Quetiapine Fumarate (Seroquel) 200 mg PO HS [facility] Last Admin: 07/19/18 21:22 Dose: 200 mg Senna/Docusate Sodium (Senokot S 50 Mg-8.6 Mg) 2 tab PO BID [facility] Last Admin: 07/21/18 10:14 Dose: 2 tab - Labs Labs: 07/20/18 04:25 07/20/18 04:25 PT 11.5 Seconds (9.8-13.1) 07/11/18 19:12 INR 1.0 07/11/18 19:12 APTT 28.9 Seconds (25.6-37.1) 07/11/18 19:12 - Constitutional Appears: No Acute Distress - Head Exam Head Exam: NORMAL INSPECTION, NORMOCEPHALIC - Eye Exam Eye Exam: EOMI, Normal appearance Pupil Exam: NORMAL ACCOMODATION - ENT Exam ENT Exam: Mucous Membranes Moist, Normal External Ear Exam - Neck Exam Neck Exam: Full ROM. absent: Meningismus - Respiratory Exam Respiratory Exam: Rales, Rhonchi, Wheezes, NORMAL BREATHING PATTERN - Cardiovascular Exam Cardiovascular Exam: REGULAR RHYTHM, +S1, +S2 - GI/Abdominal Exam GI & Abdominal Exam: Soft, Normal Bowel Sounds. absent: Tenderness - Extremities Exam Extremities Exam: Normal Capillary Refill. absent: Calf Tenderness, Pedal Edema - Back Exam Back Exam: absent: CVA tenderness (L), CVA tenderness (R) - Neurological Exam Neurological Exam: Alert, Awake Neuro motor strength exam: Left Upper Extremity: 5, Right Upper Extremity: 0, Left Lower Extremity: 5, Right Lower Extremity: 0 - Psychiatric Exam Psychiatric exam: Normal Affect, Normal Mood - Skin Skin Exam: Dry, Normal Color, Warm Assessment and Plan - Assessment and Plan (Free Text) Plan: Acute ischemic stroke CVA with R hemiparesis - MRI Brain (07/11): multifocal late acute/early subacte infarctions in L test operator ior parietal lobe, late acute/early subacute infarctions in L posterior parietal lobe, increased FLAIR hyperintensity in L cortical sulci (possibly subarachnoid hemorrhage, non-specific proteinaceous hyperintense CSF) - Video EEG showed slowing, but no seizures. - CT Head (07/17): small elliptical hemorrhage ext capsule - Neuro rec (Dr Dennis): Continue to hold Lovenox and ASA for now as most recent CT Head and Brain MRI show hemorrhagic conversion. - CTA head and neck to be done nikolay; pending renal function improvement- will send pt today - Atorvastatin 20 mg PO - Continue PT/OT Acute Respiratory failure - Likely secondary to Pneumonia - Self-extubated 12/31 - 3L O2 NC, SPO2 low 90's - As per pulmonology (Dr. Stahl 07/19/18): respiratory faiure improved, continue current rx - Acetylcysteine 20% 3ml PO BID inhalation - cont Duoneb Hypertension - As per neuro: maintain BP control - BP range overnight (144-153/75-91) - Increase Norvasc 5 mg PO started today - Enalapril 1.25 mg IV Q6 PRN - Monitor BP Toxic metabolic encephalopathy, improved - Likely secondary to CVA, drug use, seizure - Urine screen positive for opiates and bezodiazepines - Lactulose 10 gm daily PRN Feeding - Passed swallow eval (07/17) - Advanced diet to normal, tolerating well Influenza A viral infection - Afebrile, WBC wnl (5.7) - S/p 5 day course of Tamiflu 75mg Community acquired Pneumonia - Afebrile, no white count, lactate 0.9 - ID consult, Dr Velazco - Levaquin 750 mg IV and IV Vanco - rpt CXR show improvement - Duoneb Q4H Acute renal injury - Dehydration improving, CPK 800 therefor rhabdomyolysis not likely the cause of JOE - BUN/Cr 27/1.0 - Improving Hypokalemia - Resolved HIV - HAART resumed (Tivicay 50mg daily and Truvada 200mg-300mg daily) - CD4 = 135 - Acyclovir 500mg Q12H and Bactrim 20 ml Q12H for prophylaxis - ID consult, Dr Velazco. Will follow recs Elevated troponins - 07/02/18: 3.5100, 3.6000, 3.1800 - As per cardiology (Dr Zahra Guevara 07/12): altered mental status probably secondary to drug over Dose. acute kidney injury with elevated troponin levels probably secondary to rhabdomyolysis. At this juncture the patient is hemodynamically stable. Chronic hepatitis C - Chronic - HCV viral load pending final result - ID consult, Dr Velazco Prophylaxis - Lovenox - on hold due to hemorrhagic conversion
[2018-07-21] MEDS: Acyclovir 500 MG in Sodium Chloride 0.9% 100 ML IV SCH ×2 (14:29→14:30)
[2018-07-21] MEDS: levoFLOXacin 750 mg in D5W 750 MG/150 ML BAG IVPB SCH (14:31)
[2018-07-22] MEDS: Albuterol-Ipratrop 3 mg / 0.5 (3 ml) UD INH SCH ×4 (00:32→11:25)
[2018-07-22] MEDS: Acyclovir 500 MG in Sodium Chloride 0.9% 100 ML IV SCH ×2 (01:06→13:52)
[2018-07-22] MEDS: Insulin Regular 100 units/ml SC SCH ×2 (06:48→11:55)
[2018-07-22 06:52] LABS: BASO % 0.1 % (0.0-2.0); HEMOGLOBIN 11.3 g/dL (12.0-16.0); LYMPH # 0.5 K/uL (1.0-4.3); LYMPH % 8.2 % (20.0-40.0); MEAN CELL VOLUME 83.2 fl (81.0-99.0); MEAN CORPUSCULAR HEMOGLOBIN 27.2 pg (27.0-31.0); MEAN CORPUSCULAR HGB CONC 32.7 g/dL (33.0-37.0); MEAN PLATELET VOLUME 8.6 fl (7.2-11.7); MONO # 0.2 K/uL (0.0-0.8); MONO % 2.5 % (0.0-10.0); NEUT # 5.4 K/uL (1.8-7.0); NEUT % 89.2 % (50.0-75.0); NRBC % 0.2 % (0.0-0.0); PLATELET COUNT 248 K/uL (130-400); RBC 4.17 Mil/uL (3.80-5.20); RED CELL DISTRIBUTION WIDTH 17.8 % (11.5-14.5); WHITE BLOOD COUNT 6.1 K/uL (4.8-10.8)
[2018-07-22 07:33] LABS: BLOOD UREA NITROGEN 29 mg/dl (7-17); CALCIUM 8.6 mg/dL (8.4-10.2); GFR NON-AFRICAN AMERICAN 57
[2018-07-22] MEDS: Acetylcysteine 20% Inhal Soln (4ml) INH SCH (07:50)
[2018-07-22] MEDS: Docusate-Senna 50 mg-8.6 mg Tab PO SCH (09:44)
[2018-07-22] MEDS: Pantoprazole 40 mg EC Tab PO SCH (09:45)
[2018-07-22] MEDS: guaiFENesin-DM 600-30 mg ER Tab PO SCH (09:46)
[2018-07-22] MEDS: Magnesium Oxide 400 mg Tab UD PO SCH (09:47)
[2018-07-22] MEDS: MethylPREDNISolone 40 mg Vial IVP SCH (09:48)
[2018-07-22] MEDS: Emtricitabine-Tenofovir 200 mg-300 mg Tab PO SCH (09:49)
[2018-07-22] MEDS: Lactobacillus Acidophilus 500 MU Cap PO SCH (09:52)
--- NOTE | 2018-07-22 10:40 | CP.PCM.PN ---
Subjective - Date & Time of Evaluation Date of Evaluation: 07/22/18 Time of Evaluation: 10:41 - Subjective Subjective: NO NEW CLINICAL FINDINGS SOB IMPROVED Objective - Vital Signs/Intake and Output Vital Signs (last 24 hours): Temp Pulse Resp BP Pulse Ox 98.7 F 77 20 169/91 H 93 L 07/22/18 07:46 07/22/18 09:45 07/22/18 07:46 07/22/18 09:45 07/22/18 07:46 - Medications Medications: Current Medications Acetaminophen (Tylenol 650mg/20.3ml Solution Ud) 650 mg PO Q4H PRN PRN Reason: Temperature Last Admin: 07/13/18 23:42 Dose: 650 mg Albuterol/Ipratropium (Duoneb 3 Mg/0.5 Mg (3 Ml) Ud) 3 ml INH RQ4 [facility] Last Admin: 07/22/18 07:50 Dose: 3 ml Amlodipine Besylate (Norvasc) 5 mg PO DAILY [facility] Last Admin: 07/22/18 09:45 Dose: 5 mg Atorvastatin Calcium (Lipitor) 20 mg PO DAILY@2200 [facility] Last Admin: 07/21/18 22:00 Dose: 20 mg Dextrose (Dextrose 50% Inj) 0 ml IV STAT PRN; Protocol PRN Reason: Hypoglycemia Protocol Dextrose (Glutose 15) 0 gm PO ONCE PRN; Protocol PRN Reason: Hypoglycemia Protocol Dolutegravir Sodium (Tivicay) 50 mg PO DAILY [facility]; Protocol Last Admin: 07/22/18 09:49 Dose: 50 mg Duloxetine HCl (Cymbalta) 30 mg PO BID [facility] Last Admin: 07/22/18 09:50 Dose: 30 mg Emtricitabine/Tenofovir (Truvada 200 Mg-300 Mg) 1 tab PO DAILY [facility]; Protocol Last Admin: 07/22/18 09:49 Dose: 1 tab Enalaprilat (Vasotec Iv) 1.25 mg IV Q6 PRN PRN Reason: hypertension Glucagon (Glucagen Diagnostic Kit) 0 mg IM STAT PRN; Protocol PRN Reason: Hypoglycemia Protocol Guaifenesin/Dextromethorphan (Mucinex-Dm 600-30 Mg) 2 tab PO BID [facility] Last Admin: 07/22/18 09:46 Dose: 2 tab Acyclovir 500 mg/ Sodium (Chloride) 100 mls @ 100 mls/hr IV Q12H [facility]; Protocol Last Admin: 07/22/18 01:06 Dose: 100 mls/hr Vancomycin HCl 1 gm/ Sodium (Chloride) 250 mls @ 166.667 mls/hr IVPB Q24H [facility]; Protocol Last Admin: 07/21/18 17:36 Dose: 166.667 mls/hr Levofloxacin/Dextrose (Levaquin 750mg) 750 mg in 150 mls @ 100 mls/hr IVPB DAILY [facility]; Protocol Last Admin: 07/21/18 14:31 Dose: 100 mls/hr Insulin Human Regular (Humulin R) 0 units SC ACHS [facility]; Protocol Last Admin: 07/22/18 06:48 Dose: Not Given Labetalol HCl (Trandate) 10 mg IVP Q6H PRN PRN Reason: Other Last Admin: 07/19/18 19:52 Dose: 10 mg Lactobacillus Acidophilus (Bacid Acidophilus) 1 cap PO BID [facility] Last Admin: 07/22/18 09:52 Dose: 1 cap Lactulose (Enulose) 10 gm PO DAILY PRN PRN Reason: Constipation Last Admin: 07/15/18 12:55 Dose: 10 gm Magnesium Oxide (Mag-Ox) 400 mg PO BID [facility] Last Admin: 07/22/18 09:47 Dose: 400 mg Methylprednisolone (Solu-Medrol) 40 mg IVP Q12 [facility] Last Admin: 07/22/18 09:48 Dose: 40 mg Ondansetron HCl (Zofran Inj) 4 mg IVP Q4 PRN PRN Reason: Nausea/Vomiting Last Admin: 07/18/18 03:15 Dose: 4 mg Pantoprazole Sodium (Protonix Ec Tab) 40 mg PO DAILY [facility] Last Admin: 07/22/18 09:45 Dose: 40 mg Quetiapine Fumarate (Seroquel) 200 mg PO HS [facility] Last Admin: 07/21/18 21:32 Dose: 200 mg Senna/Docusate Sodium (Senokot S 50 Mg-8.6 Mg) 2 tab PO BID [facility] Last Admin: 07/22/18 09:44 Dose: 2 tab - Labs Labs: 07/22/18 05:20 07/22/18 05:20 PT 11.5 Seconds (9.8-13.1) 07/11/18 19:12 INR 1.0 07/11/18 19:12 APTT 28.9 Seconds (25.6-37.1) 07/11/18 19:12 - Constitutional Appears: Chronically Ill - Head Exam Head Exam: ATRAUMATIC, NORMAL INSPECTION, NORMOCEPHALIC - Eye Exam Eye Exam: EOMI, Normal appearance, PERRL Pupil Exam: NORMAL ACCOMODATION, PERRL - ENT Exam ENT Exam: Mucous Membranes Moist, Normal Exam - Neck Exam Neck Exam: Full ROM, Normal Inspection. absent: Lymphadenopathy - Respiratory Exam Respiratory Exam: Prolonged Expiratory Phase, NORMAL BREATHING PATTERN - Cardiovascular Exam Cardiovascular Exam: REGULAR RHYTHM, +S1, +S2. absent: Murmur - GI/Abdominal Exam GI & Abdominal Exam: Soft, Normal Bowel Sounds. absent: Tenderness - Rectal Exam Rectal Exam: NORMAL INSPECTION - Extremities Exam Extremities Exam: Full ROM, Normal Capillary Refill, Normal Inspection. absent: Joint Swelling, Pedal Edema Additional comments: R ARM WEAKNESS - Back Exam Back Exam: NORMAL INSPECTION - Neurological Exam Neurological Exam: Alert, Awake, CN II-XII Intact - Psychiatric Exam Psychiatric exam: Normal Affect, Normal Mood - Skin Skin Exam: Dry, Intact, Normal Color, Warm Assessment and Plan - Assessment and Plan (Free Text) Assessment: CVA PNEUMONIA FLU--TREATED HX OF HIV DZ Plan: CONTINUE CURRENT RX REPEAT CXR IN AM TO EVALUATE PROGRESS OF PNEUMONIA
[2018-07-22 10:55] LABS: LYMPHOCYTE 6 % (20-50); MONOCYTE 3 % (0-10); NEUTROPHIL 91 % (42-75); TOTAL CELLS COUNTED 100
[2018-07-22 10:58] LABS: PLATELET ESTIMATE NORMAL (NORMAL)
[2018-07-22 10:59] LABS: ANISOCYTOSIS SLIGHT; HYPOCHROMIC SLIGHT
[2018-07-22 11:05] LABS: OVALOCYTES SLIGHT
[2018-07-22] MEDS: levoFLOXacin 750 mg in D5W 750 MG/150 ML BAG IVPB SCH (12:01)
[2018-07-22 12:06] VITALS: BP 167/91; PULSE 88; RESP 18; TEMP 97.5; O2SAT 92
--- NOTE | 2018-07-22 12:31 | CP.PCM.DIS ---
<GueritaYvonne - Last Filed: 07/22/18 15:19> Provider - Provider Date of Admission: 07/11/18 18:11 Attending physician: Machelle Price MD Consults: 07/18/18 08:12 Psychiatry Consult Routine Comment: Consulting Provider: Jesu Perez Consulting Physician: Jesu Perez Reason for Consult: bipolar 07/11/18 18:23 Neurology Consult Stat Comment: Consulting Provider: Shayne Dennis Consulting Physician: Shayne Dennis Reason for Consult: AMS w/hx of opioid abuse, Flu+, pneumonia 07/11/18 18:25 Critical Care Consult Stat Comment: Consulting Provider: Chemo Crawford Consulting Physician: Chemo Crawford Reason for Consult: AMS, pneumonia, flu+ 07/11/18 20:33 Cardiology Consult Routine Comment: Consulting Provider: Fernandez Guevara V Consulting Physician: Fernandez Guevara V Reason for Consult: Elevated Troponin/ Benzo overdose? AMS/Renal Falilure 07/12/18 11:46 Infectious Disease Consult Routine Comment: Consulting Provider: Donavan Velazco Consulting Physician: Donavan Velazco Reason for Consult: HIV patient with low CD4 count (03/2018) and pneumonia 07/12/18 22:28 Wound Care [Nursing Referral for Wound Care] Routine Comment: back, right shah, left ankle Physician Instructions: Reason For Exam: patterned redness, scratches, and scabs 07/14/18 15:03 Pulmonology Consult Routine Comment: Consulting Provider: Chad Stahl I Consulting Physician: Chad Stahl I Reason for Consult: Respiratory failure, intubated , pneumonia Time Spent in preparation of Discharge (in minutes): 25 Diagnosis - Discharge Diagnosis (1) JOE (acute kidney injury) Status: Resolved Priority: High (2) Bipolar disorder, current episode mixed, moderate Status: Chronic (3) Cerebrovascular accident (CVA) with right hemiparesis Status: Acute Priority: High (4) Influenza A Status: Resolved (5) Respiratory failure Status: Resolved (6) HIV (human immunodeficiency virus infection) Status: Chronic (7) Hepatitis C Status: Chronic Hospital Course - Lab Results Lab Results: Micro Results 07/20/18 04:00 Naris MRSA Culture (Admit) - Final MRSA NOT DETECTED 07/11/18 16:50 Blood-Venous Blood Culture - Final NO GROWTH AFTER 5 DAYS 07/11/18 16:50 Blood-Venous Gram Stain - Final TEST NOT PERFORMED 07/12/18 14:00 Throat Group A Strep Throat Culture - Final NO BETA STREP GROUP A ISOLATED. 07/12/18 10:00 Naris MRSA Culture (Admit) - Final MRSA NOT DETECTED 07/11/18 18:54 Urine,Catheterized Urine Culture - Final No Growth (<1,000 CFU/ML) Most Recent Lab Values WBC 6.1 K/uL (4.8-10.8) D 07/22/18 05:20 RBC 4.17 Mil/uL (3.80-5.20) 07/22/18 05:20 Hgb 11.3 g/dL (12.0-16.0) L 07/22/18 05:20 Hct 34.7 % (34.0-47.0) 07/22/18 05:20 MCV 83.2 fl (81.0-99.0) 07/22/18 05:20 MCH 27.2 pg (27.0-31.0) 07/22/18 05:20 MCHC 32.7 g/dL (33.0-37.0) L 07/22/18 05:20 RDW 17.8 % (11.5-14.5) H 07/22/18 05:20 Plt Count 248 K/uL (130-400) 07/22/18 05:20 MPV 8.6 fl (7.2-11.7) 07/22/18 05:20 Neut % (Auto) 89.2 % (50.0-75.0) H 07/22/18 05:20 Lymph % (Auto) 8.2 % (20.0-40.0) L 07/22/18 05:20 Ferry % (Auto) 2.5 % (0.0-10.0) 07/22/18 05:20 Eos % (Auto) 0.0 % (0.0-4.0) 07/22/18 05:20 Baso % (Auto) 0.1 % (0.0-2.0) 07/22/18 05:20 Neut # (Auto) 5.4 K/uL (1.8-7.0) 07/22/18 05:20 Lymph # (Auto) 0.5 K/uL (1.0-4.3) L 07/22/18 05:20 Ferry # (Auto) 0.2 K/uL (0.0-0.8) 07/22/18 05:20 Eos # (Auto) 0.0 K/uL (0.0-0.7) 07/22/18 05:20 Baso # (Auto) 0.0 K/uL (0.0-0.2) 07/22/18 05:20 Neutrophils % (Manual) 91 % (42-75) H 07/22/18 05:20 Lymphocytes % (Manual) 6 % (20-50) L 07/22/18 05:20 Monocytes % (Manual) 3 % (0-10) 07/22/18 05:20 Platelet Estimate Normal (NORMAL) 07/22/18 05:20 Hypochromasia (manual) Slight 07/22/18 05:20 Anisocytosis (manual) Slight 07/22/18 05:20 Macrocytosis (manual) Slight 07/22/18 05:20 Ovalocytes Slight 07/22/18 05:20 PT 11.5 Seconds (9.8-13.1) 07/11/18 19:12 INR 1.0 07/11/18 19:12 APTT 28.9 Seconds (25.6-37.1) 07/11/18 19:12 pCO2 40 mm/Hg (35-45) 07/18/18 05:14 pO2 64 mm/Hg (80-100) L 07/18/18 05:14 HCO3 29.3 mmol/L (21-28) H 07/18/18 05:14 ABG pH 7.48 (7.35-7.45) H 07/18/18 05:14 ABG Total CO2 31.0 mmol/L (22-28) H 07/18/18 05:14 ABG O2 Saturation 93.2 % (95-98) L 07/18/18 05:14 ABG O2 Content 15.0 ML/dL (15-23) 07/16/18 04:41 ABG Base Excess 5.8 mmol/L (-2.0-3.0) H 07/18/18 05:14 ABG Hemoglobin 12.0 g/dL (11.7-17.4) 07/16/18 04:41 ABG Carboxyhemoglobin 1.0 % (0.5-1.5) 07/16/18 04:41 POC ABG HHb (Measured) 9.3 % (0.0-5.0) H 07/16/18 04:41 ABG Methemoglobin 1.0 % (0.0-3.0) 07/16/18 04:41 ABG O2 Capacity 16.6 mL/dL (16-24) 07/16/18 04:41 Bob Test Yes 07/18/18 05:14 ABG Potassium 3.1 mmol/L (3.6-5.2) L 07/18/18 05:14 A-a O2 Difference 143.0 mm/Hg 07/18/18 05:14 Hgb O2 Saturation 88.7 % (95.0-98.0) L 07/16/18 04:41 Sodium 140.0 mmol/L (132-148) 07/18/18 05:14 Chloride 107.0 mmol/L (98-107) 07/18/18 05:14 Glucose 126 mg/dL (65-105) H 07/18/18 05:14 Lactate 0.6 mmol/L (0.7-2.1) L 07/18/18 05:14 Liter Flow 40 07/16/18 04:41 Vent Mode High flow lpm 07/17/18 04:59 Mechanical Rate 12 07/16/18 04:41 FiO2 36.0 % 07/18/18 05:14 Tidal Volume 450 07/16/18 04:41 PEEP 5 07/16/18 04:41 Crit Value Called To Dr galilea correia 07/11/18 15:17 Crit Value Called By [id number] 07/11/18 15:17 Crit Value Read Back Y 07/11/18 15:17 Blood Gas Notified Time 1527 07/11/18 15:17 Sodium 141 mmol/l (132-148) 07/22/18 05:20 Potassium 3.8 MMOL/L (3.6-5.0) 07/22/18 05:20 Chloride 110 mmol/L (98-107) H 07/22/18 05:20 Carbon Dioxide 22 mmol/L (22-30) 07/22/18 05:20 Anion Gap 13 (10-20) 07/22/18 05:20 BUN 29 mg/dl (7-17) H 07/22/18 05:20 Creatinine 1.0 mg/dl (0.7-1.2) 07/22/18 05:20 Est GFR ( Amer) > 60 07/22/18 05:20 Est GFR (Non-Af Amer) 57 07/22/18 05:20 POC Glucose (mg/dL) 102 mg/dL (65-110) 07/22/18 10:27 Random Glucose 108 mg/dL (65-105) H 07/22/18 05:20 Hemoglobin A1c 5.7 % (4.2-6.5) 07/16/18 16:50 Calcium 8.6 mg/dL (8.4-10.2) 07/22/18 05:20 Phosphorus 3.7 mg/dl (2.5-4.5) 07/20/18 04:25 Magnesium 2.0 MG/DL (1.6-2.3) 07/20/18 04:25 Total Bilirubin 0.4 mg/dl (0.2-1.3) 07/20/18 04:25 Direct Bilirubin 0.2 mg/ml (0.0-0.4) 07/11/18 19:28 AST 36 U/L (14-36) 07/20/18 04:25 ALT 35 U/L (9-52) 07/20/18 04:25 Alkaline Phosphatase 72 U/L (38-126) 07/20/18 04:25 Ammonia 36 umo/L (11-51) D 07/12/18 04:27 Lactate Dehydrogenase 679 U/L (313-618) H 07/16/18 04:41 Total Creatine Kinase 838 U/L (30-135) H 07/13/18 04:29 Troponin I 3.5100 ng/mL (0.00-0.120) H* 07/12/18 05:46 Total Protein 7.8 G/DL (6.3-8.2) 07/20/18 04:25 Albumin 3.4 g/dL (3.5-5.0) L 07/20/18 04:25 Globulin 4.3 gm/dL (2.2-3.9) H 07/20/18 04:25 Albumin/Globulin Ratio 0.8 (1.0-2.1) L 07/20/18 04:25 Triglycerides 142 mg/DL (0-149) D 07/13/18 07:44 Cholesterol 135 mg/dL (0-199) 07/13/18 07:44 LDL Cholesterol Direct 54 mg/dL (0-129) 07/13/18 07:44 HDL Cholesterol 39 MG/DL (30-70) 07/13/18 07:44 Procalcitonin 0.18 NG/ML (0.19-0.49) L 07/16/18 04:41 Prolactin 26.3 ng/mL (3.0-18.9) H 07/11/18 20:23 Arterial Blood Potassium 3.1 mmol/L (3.6-5.2) L 07/18/18 05:14 Urine Color Dark yellow (YELLOW) 07/11/18 18:54 Urine Clarity Cloudy (Clear) 07/11/18 18:54 Urine pH 5.0 (5.0-8.0) 07/11/18 18:54 Ur Specific [place] 1.017 (1.003-1.030) 07/11/18 18:54 Urine Protein >=300 mg/dL (NEGATIVE) 07/11/18 18:54 Urine Glucose (UA) Neg mg/dL (NEGATIVE) 07/11/18 18:54 Urine Ketones Negative mg/dL (NEGATIVE) 07/11/18 18:54 Urine Blood Moderate (NEGATIVE) 07/11/18 18:54 Urine Nitrate Negative (NEGATIVE) 07/11/18 18:54 Urine Bilirubin Negative (NEGATIVE) 07/11/18 18:54 Urine Urobilinogen 0.2-1.0 mg/dL (0.2-1.0) 07/11/18 18:54 Ur Leukocyte Esterase Trace Nevin/uL (Negative) 07/11/18 18:54 Urine RBC (Auto) 13 /hpf (0-3) H 07/11/18 18:54 Urine Microscopic WBC 9 /hpf (0-5) H 07/11/18 18:54 Ur Squamous Epith Cells 1 /hpf (0-5) 07/11/18 18:54 Urine Bacteria Occ (<OCC) H 07/11/18 18:54 Hyaline Casts 0-2 /hpf (0-2) 07/11/18 18:54 Ur Random Sodium 27 meq/L 07/11/18 18:54 Ur Random Potassium 81.9 mmol/L 07/11/18 18:54 Vancomycin Trough 10.4 ug/mL (5.0-10.0) H 07/20/18 04:25 Urine Opiates Screen Positive (NEGATIVE) H 07/11/18 14:51 Urine Methadone Screen Negative (NEGATIVE) 07/11/18 14:51 Ur Barbiturates Screen Negative (NEGATIVE) 07/11/18 14:51 Ur Phencyclidine Scrn Negative (NEGATIVE) 07/11/18 14:51 Ur Amphetamines Screen Negative (NEGATIVE) 07/11/18 14:51 U Benzodiazepines Scrn Positive (NEGATIVE) 07/11/18 14:51 U Oth Cocaine Metabols Negative (NEGATIVE) 07/11/18 14:51 U Cannabinoids Screen Negative (NEGATIVE) 07/11/18 14:51 Alcohol, Quantitative < 10 mg/dl (0-10) 07/11/18 12:49 Absolute Lymphs (Flow) 793 Cells/mcL (850-3900) L 07/13/18 04:29 % CD4 Cells 17 Percent (30-61) L 07/13/18 04:29 Absolute CD4 Count 135 Cells/mcL (490-1740) L 07/13/18 04:29 T-Help/Suppress Ratio 0.26 Ratio (0.86-5.00) L 07/13/18 04:29 % CD8 Cells 66 Percent (12-42) H 07/13/18 04:29 Absolute CD8 Count 520 Cells/mcL (180-1170) 07/13/18 04:29 T-Lymph Analys Comment See note 07/13/18 04:29 RPR Nonreactive (NONREACTIVE) 07/13/18 04:29 Cryptococcus Ag Negative (NEGATIVE) 07/13/18 04:29 Hepatitis A IgM Ab Negative (NEGATIVE) 07/11/18 19:17 Hep Bs Antigen Negative (NEGATIVE) 07/11/18 19:17 Hep B Core IgM Ab Negative (NEGATIVE) 07/11/18 19:17 Hepatitis C Antibody Reactive (NEGATIVE) 07/11/18 19:17 HIV-1 RNA Qnt (RT-PCR) 1.82 (Not Detected) H 07/13/18 04:29 Influenza Typ A,B (EIA) Pos for influenza a (NEGATIVE) H 07/11/18 12:49 Ur L.pneumophila Ag Negative (NEGATIVE) 07/16/18 05:00 Grp A Beta Strep Ag Negative (NEGATIVE) 07/12/18 14:00 - Hospital Course Hospital Course: 58-year-old female with PMH HIV and drug abuse brought in for evaluation after being found unresponsive . Patient was found to have Influenza A , Pneumonia, acute multifocal left parietal ischemic stroke with right side hemiparesis. Patient was intubated due to acute respiratory failure with hypercarbia and hypoxemia, self extubated 07/16/18. Respiratory failure and hypoxemia likely secondary to pneumonia; resolved (SPO2 96% on room air, s/p Acetylcysteine 20% 3ml PO BID inhalation, Levaquin 750 mg IV and IV Vanco). Duonebs and solumedrol 40 mg continued. Afebrile, no white count, lactate 0.9, rpt CXR shows improvement. MRI brain (07/11) showed multifocal late acute/early subacte infarctions in L posterior parietal lobe, late acute/early subacute infarctions in L posterior parietal lobe, increased FLAIR hyperintensity in L cortical sulci (possibly subarachnoid hemorrhage, non-specific proteinaceous hyperintense CSF). Video EEG showed slowing, but no seizures. CT Head (07/17): small elliptical hemorrhage ext capsule. Neuro rec (Dr Dennis): Continue to hold Lovenox and ASA for now as latest CT Head and Brain MRI show hemorrhagic conversion. CTA head and neck to be done however pt refused multiple times. Atorvastatin 20 mg PO daily given. Toxic metabolic encephalopathy resolved, likely secondary to CVA/drug use/seizure. Urine screen positive for opiates and bezodiazepines at admission. Lactulose 10 gm daily PRN, last dose Jul 15, 2018. Hypertension medically managed, as per neuro maintain BP control. Norvasc 5 mg PO and Enalapril 1.25 mg IV Q6 PRN given however patient often refuses medication. BP monitored. Acute renal injury improving, BUN/Cr 29/1.0 from admission 41/2.7. Tolerating normal diet after passing swallow eval s/p self-extubating. Influenza A viral infection resolved. Afebrile, WBC wnl (6.1), s/p 5 day course of Tamiflu 75mg. HAART therapy continued for HIV (Tivicay 50mg daily and Truvada 200mg-300mg daily). CD4 = 135. Acyclovir 500mg Q12H and Bactrim 20 ml Q12H given for prophylaxis. ID on board, Dr Velazco, recomendations appreciated. Hep c chronic, HCV viral load pending final result. Continue PT/OT, transfer to sub-acute rehab for further therapy and medical optimization. Discharge Exam - Head Exam Head Exam: ATRAUMATIC, NORMAL INSPECTION, NORMOCEPHALIC - Eye Exam Eye Exam: Normal appearance - Respiratory Exam Respiratory Exam: NORMAL BREATHING PATTERN. absent: Decreased Breath Sounds - Cardiovascular Exam Cardiovascular Exam: +S1, +S2 - Neurological Exam Neurological exam: Alert - Psychiatric Exam Psychiatric exam: Flat Affect, Normal Mood Additional comments: Slurred speech, right facial drooping. Neuro motor strength exam: Left Upper Extremity: 4, Right Upper Extremity: 0, Left Lower Extremity: 4, Right Lower Extremity: 0. - Skin Skin Exam: Dry, Intact, Normal Color, Warm Discharge Plan - Follow Up Plan Condition: GUARDED Disposition: TRANSF TO SNF Instructions: Stroke (DC) <Mikala Guzman - Last Filed: 07/22/18 15:59> Provider - Provider Date of Admission: 07/11/18 18:11 Attending physician: Machelle Price MD Consults: 07/18/18 08:12 Psychiatry Consult Routine Comment: Consulting Provider: Jesu Perez Consulting Physician: Jesu Perez Reason for Consult: bipolar 07/11/18 18:23 Neurology Consult Stat Comment: Consulting Provider: Shayne Dennis Consulting Physician: Shayne Dennis Reason for Consult: AMS w/hx of opioid abuse, Flu+, pneumonia 07/11/18 18:25 Critical Care Consult Stat Comment: Consulting Provider: Chemo Crawford Consulting Physician: Chemo Crawford Reason for Consult: AMS, pneumonia, flu+ 07/11/18 20:33 Cardiology Consult Routine Comment: Consulting Provider: Fernandez Guevara V Consulting Physician: Fernandez Guevara V Reason for Consult: Elevated Troponin/ Benzo overdose? AMS/Renal Falilure 07/12/18 11:46 Infectious Disease Consult Routine Comment: Consulting Provider: Donavan Velazco Consulting Physician: Donavan Velazco Reason for Consult: HIV patient with low CD4 count (03/2018) and pneumonia 07/12/18 22:28 Wound Care [Nursing Referral for Wound Care] Routine Comment: back, right shah, left ankle Physician Instructions: Reason For Exam: patterned redness, scratches, and scabs 07/14/18 15:03 Pulmonology Consult Routine Comment: Consulting Provider: Chad Stahl I Consulting Physician: Chad Stahl I Reason for Consult: Respiratory failure, intubated , pneumonia Hospital Course - Lab Results Lab Results: Micro Results 07/20/18 04:00 Naris MRSA Culture (Admit) - Final MRSA NOT DETECTED 07/11/18 16:50 Blood-Venous Blood Culture - Final NO GROWTH AFTER 5 DAYS 07/11/18 16:50 Blood-Venous Gram Stain - Final TEST NOT PERFORMED 07/12/18 14:00 Throat Group A Strep Throat Culture - Final NO BETA STREP GROUP A ISOLATED. 07/12/18 10:00 Naris MRSA Culture (Admit) - Final MRSA NOT DETECTED 07/11/18 18:54 Urine,Catheterized Urine Culture - Final No Growth (<1,000 CFU/ML) Most Recent Lab Values WBC 6.1 K/uL (4.8-10.8) D 07/22/18 05:20 RBC 4.17 Mil/uL (3.80-5.20) 07/22/18 05:20 Hgb 11.3 g/dL (12.0-16.0) L 07/22/18 05:20 Hct 34.7 % (34.0-47.0) 07/22/18 05:20 MCV 83.2 fl (81.0-99.0) 07/22/18 05:20 MCH 27.2 pg (27.0-31.0) 07/22/18 05:20 MCHC 32.7 g/dL (33.0-37.0) L 07/22/18 05:20 RDW 17.8 % (11.5-14.5) H 07/22/18 05:20 Plt Count 248 K/uL (130-400) 07/22/18 05:20 MPV 8.6 fl (7.2-11.7) 07/22/18 05:20 Neut % (Auto) 89.2 % (50.0-75.0) H 07/22/18 05:20 Lymph % (Auto) 8.2 % (20.0-40.0) L 07/22/18 05:20 Ferry % (Auto) 2.5 % (0.0-10.0) 07/22/18 05:20 Eos % (Auto) 0.0 % (0.0-4.0) 07/22/18 05:20 Baso % (Auto) 0.1 % (0.0-2.0) 07/22/18 05:20 Neut # (Auto) 5.4 K/uL (1.8-7.0) 07/22/18 05:20 Lymph # (Auto) 0.5 K/uL (1.0-4.3) L 07/22/18 05:20 Ferry # (Auto) 0.2 K/uL (0.0-0.8) 07/22/18 05:20 Eos # (Auto) 0.0 K/uL (0.0-0.7) 07/22/18 05:20 Baso # (Auto) 0.0 K/uL (0.0-0.2) 07/22/18 05:20 Neutrophils % (Manual) 91 % (42-75) H 07/22/18 05:20 Lymphocytes % (Manual) 6 % (20-50) L 07/22/18 05:20 Monocytes % (Manual) 3 % (0-10) 07/22/18 05:20 Platelet Estimate Normal (NORMAL) 07/22/18 05:20 Hypochromasia (manual) Slight 07/22/18 05:20 Anisocytosis (manual) Slight 07/22/18 05:20 Macrocytosis (manual) Slight 07/22/18 05:20 Ovalocytes Slight 07/22/18 05:20 PT 11.5 Seconds (9.8-13.1) 07/11/18 19:12 INR 1.0 07/11/18 19:12 APTT 28.9 Seconds (25.6-37.1) 07/11/18 19:12 pCO2 40 mm/Hg (35-45) 07/18/18 05:14 pO2 64 mm/Hg (80-100) L 07/18/18 05:14 HCO3 29.3 mmol/L (21-28) H 07/18/18 05:14 ABG pH 7.48 (7.35-7.45) H 07/18/18 05:14 ABG Total CO2 31.0 mmol/L (22-28) H 07/18/18 05:14 ABG O2 Saturation 93.2 % (95-98) L 07/18/18 05:14 ABG O2 Content 15.0 ML/dL (15-23) 07/16/18 04:41 ABG Base Excess 5.8 mmol/L (-2.0-3.0) H 07/18/18 05:14 ABG Hemoglobin 12.0 g/dL (11.7-17.4) 07/16/18 04:41 ABG Carboxyhemoglobin 1.0 % (0.5-1.5) 07/16/18 04:41 POC ABG HHb (Measured) 9.3 % (0.0-5.0) H 07/16/18 04:41 ABG Methemoglobin 1.0 % (0.0-3.0) 07/16/18 04:41 ABG O2 Capacity 16.6 mL/dL (16-24) 07/16/18 04:41 Bob Test Yes 07/18/18 05:14 ABG Potassium 3.1 mmol/L (3.6-5.2) L 07/18/18 05:14 A-a O2 Difference 143.0 mm/Hg 07/18/18 05:14 Hgb O2 Saturation 88.7 % (95.0-98.0) L 07/16/18 04:41 Sodium 140.0 mmol/L (132-148) 07/18/18 05:14 Chloride 107.0 mmol/L (98-107) 07/18/18 05:14 Glucose 126 mg/dL (65-105) H 07/18/18 05:14 Lactate 0.6 mmol/L (0.7-2.1) L 07/18/18 05:14 Liter Flow 40 07/16/18 04:41 Vent Mode High flow lpm 07/17/18 04:59 Mechanical Rate 12 07/16/18 04:41 FiO2 36.0 % 07/18/18 05:14 Tidal Volume 450 07/16/18 04:41 PEEP 5 07/16/18 04:41 Crit Value Called To Dr galilea correia 07/11/18 15:17 Crit Value Called By Boyd 07/11/18 15:17 Crit Value Read Back Y 07/11/18 15:17 Blood Gas Notified Time 1527 07/11/18 15:17 Sodium 141 mmol/l (132-148) 07/22/18 05:20 Potassium 3.8 MMOL/L (3.6-5.0) 07/22/18 05:20 Chloride 110 mmol/L (98-107) H 07/22/18 05:20 Carbon Dioxide 22 mmol/L (22-30) 07/22/18 05:20 Anion Gap 13 (10-20) 07/22/18 05:20 BUN 29 mg/dl (7-17) H 07/22/18 05:20 Creatinine 1.0 mg/dl (0.7-1.2) 07/22/18 05:20 Est GFR ( Amer) > 60 07/22/18 05:20 Est GFR (Non-Af Amer) 57 07/22/18 05:20 POC Glucose (mg/dL) 102 mg/dL (65-110) 07/22/18 10:27 Random Glucose 108 mg/dL (65-105) H 07/22/18 05:20 Hemoglobin A1c 5.7 % (4.2-6.5) 07/16/18 16:50 Calcium 8.6 mg/dL (8.4-10.2) 07/22/18 05:20 Phosphorus 3.7 mg/dl (2.5-4.5) 07/20/18 04:25 Magnesium 2.0 MG/DL (1.6-2.3) 07/20/18 04:25 Total Bilirubin 0.4 mg/dl (0.2-1.3) 07/20/18 04:25 Direct Bilirubin 0.2 mg/ml (0.0-0.4) 07/11/18 19:28 AST 36 U/L (14-36) 07/20/18 04:25 ALT 35 U/L (9-52) 07/20/18 04:25 Alkaline Phosphatase 72 U/L (38-126) 07/20/18 04:25 Ammonia 36 umo/L (11-51) D 07/12/18 04:27 Lactate Dehydrogenase 679 U/L (313-618) H 07/16/18 04:41 Total Creatine Kinase 838 U/L (30-135) H 07/13/18 04:29 Troponin I 3.5100 ng/mL (0.00-0.120) H* 07/12/18 05:46 Total Protein 7.8 G/DL (6.3-8.2) 07/20/18 04:25 Albumin 3.4 g/dL (3.5-5.0) L 07/20/18 04:25 Globulin 4.3 gm/dL (2.2-3.9) H 07/20/18 04:25 Albumin/Globulin Ratio 0.8 (1.0-2.1) L 07/20/18 04:25 Triglycerides 142 mg/DL (0-149) D 07/13/18 07:44 Cholesterol 135 mg/dL (0-199) 07/13/18 07:44 LDL Cholesterol Direct 54 mg/dL (0-129) 07/13/18 07:44 HDL Cholesterol 39 MG/DL (30-70) 07/13/18 07:44 Procalcitonin 0.18 NG/ML (0.19-0.49) L 07/16/18 04:41 Prolactin 26.3 ng/mL (3.0-18.9) H 07/11/18 20:23 Arterial Blood Potassium 3.1 mmol/L (3.6-5.2) L 07/18/18 05:14 Urine Color Dark yellow (YELLOW) 07/11/18 18:54 Urine Clarity Cloudy (Clear) 07/11/18 18:54 Urine pH 5.0 (5.0-8.0) 07/11/18 18:54 Ur Specific [place] 1.017 (1.003-1.030) 07/11/18 18:54 Urine Protein >=300 mg/dL (NEGATIVE) 07/11/18 18:54 Urine Glucose (UA) Neg mg/dL (NEGATIVE) 07/11/18 18:54 Urine Ketones Negative mg/dL (NEGATIVE) 07/11/18 18:54 Urine Blood Moderate (NEGATIVE) 07/11/18 18:54 Urine Nitrate Negative (NEGATIVE) 07/11/18 18:54 Urine Bilirubin Negative (NEGATIVE) 07/11/18 18:54 Urine Urobilinogen 0.2-1.0 mg/dL (0.2-1.0) 07/11/18 18:54 Ur Leukocyte Esterase Trace Nevin/uL (Negative) 07/11/18 18:54 Urine RBC (Auto) 13 /hpf (0-3) H 07/11/18 18:54 Urine Microscopic WBC 9 /hpf (0-5) H 07/11/18 18:54 Ur Squamous Epith Cells 1 /hpf (0-5) 07/11/18 18:54 Urine Bacteria Occ (<OCC) H 07/11/18 18:54 Hyaline Casts 0-2 /hpf (0-2) 07/11/18 18:54 Ur Random Sodium 27 meq/L 07/11/18 18:54 Ur Random Potassium 81.9 mmol/L 07/11/18 18:54 Vancomycin Trough 10.4 ug/mL (5.0-10.0) H 07/20/18 04:25 Urine Opiates Screen Positive (NEGATIVE) H 07/11/18 14:51 Urine Methadone Screen Negative (NEGATIVE) 07/11/18 14:51 Ur Barbiturates Screen Negative (NEGATIVE) 07/11/18 14:51 Ur Phencyclidine Scrn Negative (NEGATIVE) 07/11/18 14:51 Ur Amphetamines Screen Negative (NEGATIVE) 07/11/18 14:51 U Benzodiazepines Scrn Positive (NEGATIVE) 07/11/18 14:51 U Oth Cocaine Metabols Negative (NEGATIVE) 07/11/18 14:51 U Cannabinoids Screen Negative (NEGATIVE) 07/11/18 14:51 Alcohol, Quantitative < 10 mg/dl (0-10) 07/11/18 12:49 Absolute Lymphs (Flow) 793 Cells/mcL (850-3900) L 07/13/18 04:29 % CD4 Cells 17 Percent (30-61) L 07/13/18 04:29 Absolute CD4 Count 135 Cells/mcL (490-1740) L 07/13/18 04:29 T-Help/Suppress Ratio 0.26 Ratio (0.86-5.00) L 07/13/18 04:29 % CD8 Cells 66 Percent (12-42) H 07/13/18 04:29 Absolute CD8 Count 520 Cells/mcL (180-1170) 07/13/18 04:29 T-Lymph Analys Comment See note 07/13/18 04:29 RPR Nonreactive (NONREACTIVE) 07/13/18 04:29 Cryptococcus Ag Negative (NEGATIVE) 07/13/18 04:29 Hepatitis A IgM Ab Negative (NEGATIVE) 07/11/18 19:17 Hep Bs Antigen Negative (NEGATIVE) 07/11/18 19:17 Hep B Core IgM Ab Negative (NEGATIVE) 07/11/18 19:17 Hepatitis C Antibody Reactive (NEGATIVE) 07/11/18 19:17 HIV-1 RNA Qnt (RT-PCR) 1.82 (Not Detected) H 07/13/18 04:29 Influenza Typ A,B (EIA) Pos for influenza a (NEGATIVE) H 07/11/18 12:49 Ur L.pneumophila Ag Negative (NEGATIVE) 07/16/18 05:00 Grp A Beta Strep Ag Negative (NEGATIVE) 07/12/18 14:00 Attending/Attestation - Attestation I have personally seen and examined this patient.: Yes I have fully participated in the care of the patient.: Yes I have reviewed all pertinent clinical information, including history, physical exam and plan: Yes Notes (Text): 07/22/18 15:55 Acute ischemic stroke CVA with R hemiparesis - MRI Brain (07/11): multifocal late acute/early subacte infarctions in L po sterior parietal lobe, late acute/early subacute infarctions in L posterior parietal lobe, increased FLAIR hyperintensity in L cortical sulci (possibly subarachnoid hemorrhage, non-specific proteinaceous hyperintense CSF) - Video EEG showed slowing, but no seizures. - CT Head (07/17): small elliptical hemorrhage ext capsule - Neuro rec (Dr Dennis): Continue to hold Lovenox and ASA for now as most recent CT Head and Brain MRI show hemorrhagic conversion. - CTA head and neck to be done nikolay; pending renal function improvement- will send pt today - Atorvastatin 20 mg PO -d/c to Acute Rehab Acute Respiratory failure - Likely secondary to Pneumonia - Self-extubated 07/16 - cont Oxygen at 2LPM - As per pulmonology (Dr. Stahl ): respiratory failure improved, continue current rx - cont Duoneb - rpt CXR in am Hypertension - As per neuro: maintain BP control - Increase Norvasc 5 mg PO - Monitor BP Toxic metabolic encephalopathy, improved - Likely secondary to CVA, drug use, seizure - Urine screen positive for opiates and bezodiazepines - Lactulose 10 gm daily PRN Feeding - Passed swallow eval (07/17) - Advanced diet to normal, tolerating well Influenza A viral infection - Afebrile, WBC wnl (5.7) - completed 5 day course of Tamiflu 75mg Community acquired Pneumonia - Afebrile, no white count, lactate 0.9 - ID consult, Dr Velazco - Levaquin 750 mg IV and IV Vanco - rpt CXR show improvement - Duoneb Q4H - rpt CXR in am Acute renal injury - Dehydration - Improving Hypokalemia - Resolved HIV - HAART resumed (Tivicay 50mg daily and Truvada 200mg-300mg daily) - CD4 = 135 -Bactrim DS daily proph PCP - ID consult, Dr Velazco. Elevated troponins - 07/02/18: 3.5100, 3.6000, 3.1800 - As per cardiology (Dr Zahra Guevara 07/12): altered mental status probably secondary to drug over Dose. acute kidney injury with elevated troponin levels probably secondary to rhabdomyolysis. At this juncture the patient is hemodynamically stable. Chronic hepatitis C - Chronic - HCV viral load - ID consult, Dr Velazco Prophylaxis - Lovenox - on hold due to hemorrhagic conversion
--- NOTE | 2018-07-22 12:52 | CP.PCM.PN ---
Subjective - Date & Time of Evaluation Date of Evaluation: 07/22/18 Time of Evaluation: 06:00 - Subjective Subjective: awake and alert moving left side right side flaccid' Objective - Vital Signs/Intake and Output Vital Signs (last 24 hours): Temp Pulse Resp BP Pulse Ox 97.5 F L 88 18 167/91 H 92 L 07/22/18 12:05 07/22/18 12:05 07/22/18 12:05 07/22/18 12:05 07/22/18 12:05 - Medications Medications: Current Medications Acetaminophen (Tylenol 650mg/20.3ml Solution Ud) 650 mg PO Q4H PRN PRN Reason: Temperature Last Admin: 07/13/18 23:42 Dose: 650 mg Albuterol/Ipratropium (Duoneb 3 Mg/0.5 Mg (3 Ml) Ud) 3 ml INH RQ4 [facility] Last Admin: 07/22/18 11:25 Dose: 3 ml Amlodipine Besylate (Norvasc) 5 mg PO DAILY [facility] Last Admin: 07/22/18 09:45 Dose: 5 mg Atorvastatin Calcium (Lipitor) 20 mg PO DAILY@2200 [facility] Last Admin: 07/21/18 22:00 Dose: 20 mg Dextrose (Dextrose 50% Inj) 0 ml IV STAT PRN; Protocol PRN Reason: Hypoglycemia Protocol Dextrose (Glutose 15) 0 gm PO ONCE PRN; Protocol PRN Reason: Hypoglycemia Protocol Dolutegravir Sodium (Tivicay) 50 mg PO DAILY [facility]; Protocol Last Admin: 07/22/18 09:49 Dose: 50 mg Duloxetine HCl (Cymbalta) 30 mg PO BID [facility] Last Admin: 07/22/18 09:50 Dose: 30 mg Emtricitabine/Tenofovir (Truvada 200 Mg-300 Mg) 1 tab PO DAILY [facility]; Protocol Last Admin: 07/22/18 09:49 Dose: 1 tab Enalaprilat (Vasotec Iv) 1.25 mg IV Q6 PRN PRN Reason: hypertension Glucagon (Glucagen Diagnostic Kit) 0 mg IM STAT PRN; Protocol PRN Reason: Hypoglycemia Protocol Guaifenesin/Dextromethorphan (Mucinex-Dm 600-30 Mg) 2 tab PO BID [facility] Last Admin: 07/22/18 09:46 Dose: 2 tab Acyclovir 500 mg/ Sodium (Chloride) 100 mls @ 100 mls/hr IV Q12H [facility]; Protocol Last Admin: 07/22/18 01:06 Dose: 100 mls/hr Vancomycin HCl 1 gm/ Sodium (Chloride) 250 mls @ 166.667 mls/hr IVPB Q24H [facility]; Protocol Last Admin: 07/21/18 17:36 Dose: 166.667 mls/hr Levofloxacin/Dextrose (Levaquin 750mg) 750 mg in 150 mls @ 100 mls/hr IVPB DAILY [facility]; Protocol Last Admin: 07/22/18 12:01 Dose: 100 mls/hr Insulin Human Regular (Humulin R) 0 units SC ACHS [facility]; Protocol Last Admin: 07/22/18 11:55 Dose: Not Given Labetalol HCl (Trandate) 10 mg IVP Q6H PRN PRN Reason: Other Last Admin: 07/19/18 19:52 Dose: 10 mg Lactobacillus Acidophilus (Bacid Acidophilus) 1 cap PO BID [facility] Last Admin: 07/22/18 09:52 Dose: 1 cap Lactulose (Enulose) 10 gm PO DAILY PRN PRN Reason: Constipation Last Admin: 07/15/18 12:55 Dose: 10 gm Magnesium Oxide (Mag-Ox) 400 mg PO BID [facility] Last Admin: 07/22/18 09:47 Dose: 400 mg Methylprednisolone (Solu-Medrol) 40 mg IVP Q12 [facility] Last Admin: 07/22/18 09:48 Dose: 40 mg Ondansetron HCl (Zofran Inj) 4 mg IVP Q4 PRN PRN Reason: Nausea/Vomiting Last Admin: 07/18/18 03:15 Dose: 4 mg Pantoprazole Sodium (Protonix Ec Tab) 40 mg PO DAILY [facility] Last Admin: 07/22/18 09:45 Dose: 40 mg Quetiapine Fumarate (Seroquel) 200 mg PO HS [facility] Last Admin: 07/21/18 21:32 Dose: 200 mg Senna/Docusate Sodium (Senokot S 50 Mg-8.6 Mg) 2 tab PO BID [facility] Last Admin: 07/22/18 09:44 Dose: 2 tab - Labs Labs: 07/22/18 05:20 07/22/18 05:20 PT 11.5 Seconds (9.8-13.1) 07/11/18 19:12 INR 1.0 07/11/18 19:12 APTT 28.9 Seconds (25.6-37.1) 07/11/18 19:12 - Constitutional Appears: Non-toxic, Chronically Ill - Head Exam Head Exam: NORMOCEPHALIC - Eye Exam Eye Exam: absent: Scleral icterus - ENT Exam ENT Exam: Mucous Membranes Dry - Neck Exam Neck Exam: absent: Lymphadenopathy - Respiratory Exam Respiratory Exam: Decreased Breath Sounds - Cardiovascular Exam Cardiovascular Exam: REGULAR RHYTHM - GI/Abdominal Exam GI & Abdominal Exam: Distended - Rectal Exam Rectal Exam: Deferred - Exam Exam: NORMAL INSPECTION - Extremities Exam Extremities Exam: absent: Pedal Edema - Back Exam Back Exam: absent: CVA tenderness (L), CVA tenderness (R) - Neurological Exam Neurological Exam: Alert, Awake, CN II-XII Intact Neuro motor strength exam: Left Upper Extremity: 4, Right Upper Extremity: 2/1, Left Lower Extremity: 4, Right Lower Extremity: 2/1 - Psychiatric Exam Psychiatric exam: Depressed - Skin Skin Exam: Dry Assessment and Plan (1) Bipolar disorder, current episode mixed, moderate Status: Acute (2) COPD (chronic obstructive pulmonary disease) Status: Acute (3) HIV (human immunodeficiency virus infection) Status: Acute (4) Cerebrovascular accident (CVA) with hemiparesis Status: Acute (5) Cerebrovascular accident (CVA) with right hemiparesis Status: Acute (6) Respiratory failure Status: Acute (7) Influenza A Status: Acute (8) Rhabdomyolysis Status: Acute (9) JOE (acute kidney injury) Status: Acute - Assessment and Plan (Free Text) Assessment: 58 y/o F with PMhx of positive HIV, Substance abuse, Asthma, bipolar disorder, Chronic Hep C was brought by EMS after being found unconscious and lethargic. On admission was found to have acute CVA with right sided weakness, Influenza A Ag + , Rhabdo/ JOE, resp failure and pneumonia --Head CT: suggestive of left sided ischemia --CXR: Possible pneumonia in lower lobes. ? hilar adenopathy/mass. --MRI Brain: multifocal late acute/early subacte infarctions in L posterior parietal lobe, late acute/early subacute infarctions in L posterior parietal lobe, increased FLAIR hyperintensity in L cortical sulci (possibly subarachnoid hemorrhage, non-specific proteinaceous hyperintense CSF) Plan: CD4 = 147 of HAART rx as out pt ( noncompliant) Now on HAART with Truvada/ Tivacay Renal function improving Cardio on board - consider HERMILA when feasible to r/o Vegetation, clot , other Neuro following
--- NOTE | 2018-07-22 15:10 | CP.PCM.DIS ---
Provider - Provider Date of Admission: 07/11/18 18:11 Attending physician: Machelle Price MD Consults: 07/18/18 08:12 Psychiatry Consult Routine Comment: Consulting Provider: Jesu Perez Consulting Physician: Jesu Perez Reason for Consult: bipolar 07/11/18 18:23 Neurology Consult Stat Comment: Consulting Provider: Shayne Dennis Consulting Physician: Shayne Dennis Reason for Consult: AMS w/hx of opioid abuse, Flu+, pneumonia 07/11/18 18:25 Critical Care Consult Stat Comment: Consulting Provider: Chemo Crawford Consulting Physician: Chemo Crawford Reason for Consult: AMS, pneumonia, flu+ 07/11/18 20:33 Cardiology Consult Routine Comment: Consulting Provider: Fernandez Guevara V Consulting Physician: Fernandez Guevara V Reason for Consult: Elevated Troponin/ Benzo overdose? AMS/Renal Falilure 07/12/18 11:46 Infectious Disease Consult Routine Comment: Consulting Provider: Donavan Velazco Consulting Physician: Donavan Velazco Reason for Consult: HIV patient with low CD4 count (03/2018) and pneumonia 07/12/18 22:28 Wound Care [Nursing Referral for Wound Care] Routine Comment: back, right shah, left ankle Physician Instructions: Reason For Exam: patterned redness, scratches, and scabs 07/14/18 15:03 Pulmonology Consult Routine Comment: Consulting Provider: Chad Stahl I Consulting Physician: Chad Stahl I Reason for Consult: Respiratory failure, intubated , pneumonia Time Spent in preparation of Discharge (in minutes): 25 Hospital Course - Lab Results Lab Results: Micro Results 07/20/18 04:00 Naris MRSA Culture (Admit) - Final MRSA NOT DETECTED 07/11/18 16:50 Blood-Venous Blood Culture - Final NO GROWTH AFTER 5 DAYS 07/11/18 16:50 Blood-Venous Gram Stain - Final TEST NOT PERFORMED 07/12/18 14:00 Throat Group A Strep Throat Culture - Final NO BETA STREP GROUP A ISOLATED. 07/12/18 10:00 Naris MRSA Culture (Admit) - Final MRSA NOT DETECTED 07/11/18 18:54 Urine,Catheterized Urine Culture - Final No Growth (<1,000 CFU/ML) Most Recent Lab Values WBC 6.1 K/uL (4.8-10.8) D 07/22/18 05:20 RBC 4.17 Mil/uL (3.80-5.20) 07/22/18 05:20 Hgb 11.3 g/dL (12.0-16.0) L 07/22/18 05:20 Hct 34.7 % (34.0-47.0) 07/22/18 05:20 MCV 83.2 fl (81.0-99.0) 07/22/18 05:20 MCH 27.2 pg (27.0-31.0) 07/22/18 05:20 MCHC 32.7 g/dL (33.0-37.0) L 07/22/18 05:20 RDW 17.8 % (11.5-14.5) H 07/22/18 05:20 Plt Count 248 K/uL (130-400) 07/22/18 05:20 MPV 8.6 fl (7.2-11.7) 07/22/18 05:20 Neut % (Auto) 89.2 % (50.0-75.0) H 07/22/18 05:20 Lymph % (Auto) 8.2 % (20.0-40.0) L 07/22/18 05:20 Otero % (Auto) 2.5 % (0.0-10.0) 07/22/18 05:20 Eos % (Auto) 0.0 % (0.0-4.0) 07/22/18 05:20 Baso % (Auto) 0.1 % (0.0-2.0) 07/22/18 05:20 Neut # (Auto) 5.4 K/uL (1.8-7.0) 07/22/18 05:20 Lymph # (Auto) 0.5 K/uL (1.0-4.3) L 07/22/18 05:20 Otero # (Auto) 0.2 K/uL (0.0-0.8) 07/22/18 05:20 Eos # (Auto) 0.0 K/uL (0.0-0.7) 07/22/18 05:20 Baso # (Auto) 0.0 K/uL (0.0-0.2) 07/22/18 05:20 Neutrophils % (Manual) 91 % (42-75) H 07/22/18 05:20 Lymphocytes % (Manual) 6 % (20-50) L 07/22/18 05:20 Monocytes % (Manual) 3 % (0-10) 07/22/18 05:20 Platelet Estimate Normal (NORMAL) 07/22/18 05:20 Hypochromasia (manual) Slight 07/22/18 05:20 Anisocytosis (manual) Slight 07/22/18 05:20 Macrocytosis (manual) Slight 07/22/18 05:20 Ovalocytes Slight 07/22/18 05:20 PT 11.5 Seconds (9.8-13.1) 07/11/18 19:12 INR 1.0 07/11/18 19:12 APTT 28.9 Seconds (25.6-37.1) 07/11/18 19:12 pCO2 40 mm/Hg (35-45) 07/18/18 05:14 pO2 64 mm/Hg (80-100) L 07/18/18 05:14 HCO3 29.3 mmol/L (21-28) H 07/18/18 05:14 ABG pH 7.48 (7.35-7.45) H 07/18/18 05:14 ABG Total CO2 31.0 mmol/L (22-28) H 07/18/18 05:14 ABG O2 Saturation 93.2 % (95-98) L 07/18/18 05:14 ABG O2 Content 15.0 ML/dL (15-23) 07/16/18 04:41 ABG Base Excess 5.8 mmol/L (-2.0-3.0) H 07/18/18 05:14 ABG Hemoglobin 12.0 g/dL (11.7-17.4) 07/16/18 04:41 ABG Carboxyhemoglobin 1.0 % (0.5-1.5) 07/16/18 04:41 POC ABG HHb (Measured) 9.3 % (0.0-5.0) H 07/16/18 04:41 ABG Methemoglobin 1.0 % (0.0-3.0) 07/16/18 04:41 ABG O2 Capacity 16.6 mL/dL (16-24) 07/16/18 04:41 Bob Test Yes 07/18/18 05:14 ABG Potassium 3.1 mmol/L (3.6-5.2) L 07/18/18 05:14 A-a O2 Difference 143.0 mm/Hg 07/18/18 05:14 Hgb O2 Saturation 88.7 % (95.0-98.0) L 07/16/18 04:41 Sodium 140.0 mmol/L (132-148) 07/18/18 05:14 Chloride 107.0 mmol/L (98-107) 07/18/18 05:14 Glucose 126 mg/dL (65-105) H 07/18/18 05:14 Lactate 0.6 mmol/L (0.7-2.1) L 07/18/18 05:14 Liter Flow 40 07/16/18 04:41 Vent Mode High flow lpm 07/17/18 04:59 Mechanical Rate 12 07/16/18 04:41 FiO2 36.0 % 07/18/18 05:14 Tidal Volume 450 07/16/18 04:41 PEEP 5 07/16/18 04:41 Crit Value Called To Dr galilea correia 07/11/18 15:17 Crit Value Called By [id number] 07/11/18 15:17 Crit Value Read Back Y 07/11/18 15:17 Blood Gas Notified Time 1527 07/11/18 15:17 Sodium 141 mmol/l (132-148) 07/22/18 05:20 Potassium 3.8 MMOL/L (3.6-5.0) 07/22/18 05:20 Chloride 110 mmol/L (98-107) H 07/22/18 05:20 Carbon Dioxide 22 mmol/L (22-30) 07/22/18 05:20 Anion Gap 13 (10-20) 07/22/18 05:20 BUN 29 mg/dl (7-17) H 07/22/18 05:20 Creatinine 1.0 mg/dl (0.7-1.2) 07/22/18 05:20 Est GFR ( Amer) > 60 07/22/18 05:20 Est GFR (Non-Af Amer) 57 07/22/18 05:20 POC Glucose (mg/dL) 102 mg/dL (65-110) 07/22/18 10:27 Random Glucose 108 mg/dL (65-105) H 07/22/18 05:20 Hemoglobin A1c 5.7 % (4.2-6.5) 07/16/18 16:50 Calcium 8.6 mg/dL (8.4-10.2) 07/22/18 05:20 Phosphorus 3.7 mg/dl (2.5-4.5) 07/20/18 04:25 Magnesium 2.0 MG/DL (1.6-2.3) 07/20/18 04:25 Total Bilirubin 0.4 mg/dl (0.2-1.3) 07/20/18 04:25 Direct Bilirubin 0.2 mg/ml (0.0-0.4) 07/11/18 19:28 AST 36 U/L (14-36) 07/20/18 04:25 ALT 35 U/L (9-52) 07/20/18 04:25 Alkaline Phosphatase 72 U/L (38-126) 07/20/18 04:25 Ammonia 36 umo/L (11-51) D 07/12/18 04:27 Lactate Dehydrogenase 679 U/L (313-618) H 07/16/18 04:41 Total Creatine Kinase 838 U/L (30-135) H 07/13/18 04:29 Troponin I 3.5100 ng/mL (0.00-0.120) H* 07/12/18 05:46 Total Protein 7.8 G/DL (6.3-8.2) 07/20/18 04:25 Albumin 3.4 g/dL (3.5-5.0) L 07/20/18 04:25 Globulin 4.3 gm/dL (2.2-3.9) H 07/20/18 04:25 Albumin/Globulin Ratio 0.8 (1.0-2.1) L 07/20/18 04:25 Triglycerides 142 mg/DL (0-149) D 07/13/18 07:44 Cholesterol 135 mg/dL (0-199) 07/13/18 07:44 LDL Cholesterol Direct 54 mg/dL (0-129) 07/13/18 07:44 HDL Cholesterol 39 MG/DL (30-70) 07/13/18 07:44 Procalcitonin 0.18 NG/ML (0.19-0.49) L 07/16/18 04:41 Prolactin 26.3 ng/mL (3.0-18.9) H 07/11/18 20:23 Arterial Blood Potassium 3.1 mmol/L (3.6-5.2) L 07/18/18 05:14 Urine Color Dark yellow (YELLOW) 07/11/18 18:54 Urine Clarity Cloudy (Clear) 07/11/18 18:54 Urine pH 5.0 (5.0-8.0) 07/11/18 18:54 Ur Specific [place] 1.017 (1.003-1.030) 07/11/18 18:54 Urine Protein >=300 mg/dL (NEGATIVE) 07/11/18 18:54 Urine Glucose (UA) Neg mg/dL (NEGATIVE) 07/11/18 18:54 Urine Ketones Negative mg/dL (NEGATIVE) 07/11/18 18:54 Urine Blood Moderate (NEGATIVE) 07/11/18 18:54 Urine Nitrate Negative (NEGATIVE) 07/11/18 18:54 Urine Bilirubin Negative (NEGATIVE) 07/11/18 18:54 Urine Urobilinogen 0.2-1.0 mg/dL (0.2-1.0) 07/11/18 18:54 Ur Leukocyte Esterase Trace Nevin/uL (Negative) 07/11/18 18:54 Urine RBC (Auto) 13 /hpf (0-3) H 07/11/18 18:54 Urine Microscopic WBC 9 /hpf (0-5) H 07/11/18 18:54 Ur Squamous Epith Cells 1 /hpf (0-5) 07/11/18 18:54 Urine Bacteria Occ (<OCC) H 07/11/18 18:54 Hyaline Casts 0-2 /hpf (0-2) 07/11/18 18:54 Ur Random Sodium 27 meq/L 07/11/18 18:54 Ur Random Potassium 81.9 mmol/L 07/11/18 18:54 Vancomycin Trough 10.4 ug/mL (5.0-10.0) H 07/20/18 04:25 Urine Opiates Screen Positive (NEGATIVE) H 07/11/18 14:51 Urine Methadone Screen Negative (NEGATIVE) 07/11/18 14:51 Ur Barbiturates Screen Negative (NEGATIVE) 07/11/18 14:51 Ur Phencyclidine Scrn Negative (NEGATIVE) 07/11/18 14:51 Ur Amphetamines Screen Negative (NEGATIVE) 07/11/18 14:51 U Benzodiazepines Scrn Positive (NEGATIVE) 07/11/18 14:51 U Oth Cocaine Metabols Negative (NEGATIVE) 07/11/18 14:51 U Cannabinoids Screen Negative (NEGATIVE) 07/11/18 14:51 Alcohol, Quantitative < 10 mg/dl (0-10) 07/11/18 12:49 Absolute Lymphs (Flow) 793 Cells/mcL (850-3900) L 07/13/18 04:29 % CD4 Cells 17 Percent (30-61) L 07/13/18 04:29 Absolute CD4 Count 135 Cells/mcL (490-1740) L 07/13/18 04:29 T-Help/Suppress Ratio 0.26 Ratio (0.86-5.00) L 07/13/18 04:29 % CD8 Cells 66 Percent (12-42) H 07/13/18 04:29 Absolute CD8 Count 520 Cells/mcL (180-1170) 07/13/18 04:29 T-Lymph Analys Comment See note 07/13/18 04:29 RPR Nonreactive (NONREACTIVE) 07/13/18 04:29 Cryptococcus Ag Negative (NEGATIVE) 07/13/18 04:29 Hepatitis A IgM Ab Negative (NEGATIVE) 07/11/18 19:17 Hep Bs Antigen Negative (NEGATIVE) 07/11/18 19:17 Hep B Core IgM Ab Negative (NEGATIVE) 07/11/18 19:17 Hepatitis C Antibody Reactive (NEGATIVE) 07/11/18 19:17 HIV-1 RNA Qnt (RT-PCR) 1.82 (Not Detected) H 07/13/18 04:29 Influenza Typ A,B (EIA) Pos for influenza a (NEGATIVE) H 07/11/18 12:49 Ur L.pneumophila Ag Negative (NEGATIVE) 07/16/18 05:00 Grp A Beta Strep Ag Negative (NEGATIVE) 07/12/18 14:00 - Hospital Course Hospital Course: 58-year-old female with PMH HIV and drug abuse brought in for evaluation after being found unresponsive . Patient was found to have Influenza A , Pneumonia, acute multifocal left parietal ischemic stroke with right side hemiparesis. Patient was intubated due to acute respiratory failure with hypercarbia and hypoxemia, self extubated 07/16/18. Respiratory failure and hypoxemia likely se condary to pneumonia; resolved (SPO2 96% on room air, s/p Acetylcysteine 20% 3ml PO BID inhalation, Levaquin 750 mg IV and IV Vanco). Duonebs and solumedrol 40 mg continued. Afebrile, no white count, lactate 0.9, rpt CXR shows improvement. MRI brain (07/11) showed multifocal late acute/early subacte infarctions in L posterior parietal lobe, late acute/early subacute infarctions in L posterior parietal lobe, increased FLAIR hyperintensity in L cortical sulci (possibly subarachnoid hemorrhage, non-specific proteinaceous hyperintense CSF). Video EEG showed slowing, but no seizures. CT Head (07/17): small elliptical hemorrhage ext capsule. Neuro rec (Dr Dennis): Continue to hold Lovenox and ASA for now as latest CT Head and Brain MRI show hemorrhagic conversion. CTA head and neck to be done however pt refused multiple times. Atorvastatin 20 mg PO daily given. Toxic metabolic encephalopathy resolved, likely secondary to CVA/drug use/seizure. Urine screen positive for opiates and bezodiazepines at admission. Lactulose 10 gm daily PRN, last dose Jul 15, 2018. Hypertension medically managed, as per neuro maintain BP control. Norvasc 5 mg PO and Enalapril 1.25 mg IV Q6 PRN given however patient often refuses medication. BP monitored. Acute renal injury improving, BUN/Cr 29/1.0 from admission 41/2.7. Tolerating normal diet after passing swallow eval s/p self-extubating. Influenza A viral infection resolved. Afebrile, WBC wnl (6.1), s/p 5 day course of Tamiflu 75mg. HAART therapy continued for HIV (Tivicay 50mg daily and Truvada 200mg-300mg daily). CD4 = 135. Acyclovir 500mg Q12H and Bactrim 20 ml Q12H given for prophylaxis. ID on board, Dr Velazco, recomendations appreciated. Hep c chronic, HCV viral load pending final result. Continue PT/OT, transfer to sub-acute rehab for further therapy and medical optimization. Discharge Exam - Head Exam Head Exam: NORMOCEPHALIC Discharge Plan - Follow Up Plan Condition: GUARDED Disposition: TRANSF TO SNF Instructions: Stroke (DC)
== END 2018-07-22 15:06 | DRG 64 ==
LOC: H.ER 11:33 → H.ERHOLD 18:11 → H.ICU/CCU 20:45 → H.TEL 07-20 21:43
PROVIDERS: ADMIT Hospitalist; ATTEND Hospitalist
PROC: 5A1955Z Respiratory Ventilation, Greater than 96 Consecutive Hours (ICD-10-PCS; principal; 2018-07-12)
PROC: 0BH17EZ Insertion of Endotracheal Airway into Trachea, Via Natural or Artificial Opening (ICD-10-PCS; 2018-07-12)
PROC: 06HY33Z Insertion of Infusion Device into Lower Vein, Percutaneous Approach (ICD-10-PCS; 2018-07-13)
PROC: 3E03329 Introduction of Other Anti-infective into Peripheral Vein, Percutaneous Approach (ICD-10-PCS; 2018-07-13)
DX: I63.89 Other cerebral infarction (principal); J96.02 Acute respiratory failure with hypercapnia; J10.01 Influenza due to other identified influenza virus with the same other identified influenza virus pneumonia; I61.8 Other nontraumatic intracerebral hemorrhage; G92 Toxic encephalopathy; J69.0 Pneumonitis due to inhalation of food and vomit; J96.01 Acute respiratory failure with hypoxia; N17.9 Acute kidney failure, unspecified; E87.2 Acidosis; G81.01 Flaccid hemiplegia affecting right dominant side; B20 Human immunodeficiency virus [HIV] disease; M62.82 Rhabdomyolysis; F31.62 Bipolar disorder, current episode mixed, moderate; J44.0 Chronic obstructive pulmonary disease with (acute) lower respiratory infection; J98.11 Atelectasis; E87.5 Hyperkalemia; E86.0 Dehydration; B18.2 Chronic viral hepatitis C; F11.10 Opioid abuse, uncomplicated; F13.10 Sedative, hypnotic or anxiolytic abuse, uncomplicated; E11.65 Type 2 diabetes mellitus with hyperglycemia; E87.6 Hypokalemia; I34.1 Nonrheumatic mitral (valve) prolapse; G40.909 Epilepsy, unspecified, not intractable, without status epilepticus; I27.20 Pulmonary hypertension, unspecified; F22 Delusional disorders; F17.210 Nicotine dependence, cigarettes, uncomplicated; I10 Essential (primary) hypertension; E78.00 Pure hypercholesterolemia, unspecified; F60.9 Personality disorder, unspecified; G47.30 Sleep apnea, unspecified; F41.9 Anxiety disorder, unspecified; Z91.14 Patient's other noncompliance with medication regimen; Z78.1 Physical restraint status; Z86.73 Personal history of transient ischemic attack (TIA), and cerebral infarction without residual deficits; Z88.0 Allergy status to penicillin

== ENCOUNTER 2018-07-20 01:22 | Inpatient (IN) | payer MEDICARE, MEDICAID ==
[2018-07-22 13:19] VITALS: BMI 24.1
[2018-07-22] MEDS ORDERED: Acetaminophen 325 MG/10.15 ML PO PRN (15:30)
[2018-07-22] MEDS ORDERED: Insulin Regular 100 units/ml SC SCH (16:30)
[2018-07-22] MEDS ORDERED: Vancomycin 1 g Inj IVPB SCH (17:00)
[2018-07-22] MEDS: Docusate-Senna 50 mg-8.6 mg Tab PO SCH (17:10)
[2018-07-22] MEDS: Magnesium Oxide 400 mg Tab UD PO SCH (17:10)
[2018-07-22] MEDS: Lactobacillus Acidophilus 500 MU Cap PO SCH (17:10)
[2018-07-22] MEDS: Albuterol-Ipratrop 3 mg / 0.5 (3 ml) UD INH SCH ×2 (17:15→20:23)
[2018-07-22] MEDS: guaiFENesin-DM 600-30 mg ER Tab PO SCH (19:00)
[2018-07-23] MEDS: Albuterol-Ipratrop 3 mg / 0.5 (3 ml) UD INH SCH ×7 (00:22→23:58)
[2018-07-23] MEDS ORDERED: Acyclovir 500 mg Inj IV SCH (01:30)
[2018-07-23] MEDS ORDERED: Acyclovir 500 MG in Sodium Chloride 0.9% 100 ML IV SCH (01:30)
[2018-07-23] MEDS: levoFLOXacin 750 mg in D5W 750 MG/150 ML BAG IVPB SCH (05:42)
[2018-07-23] MEDS ORDERED: levoFLOXacin 750 mg in D5W 150 ML BAG IVPB SCH (09:00)
--- NOTE | 2018-07-23 09:00 | CP.PCM.CON ---
History of Present Illness - History of Present Illness History of Present Illness: 58 yr old female who was transferred from telemetry following endotracheal intubation and ventilation for respiratory failure and cva.She was seen by me in the icu for treatment of respiratory failure and aspiration pneumonia.She is ap hasic and unable to offer any history.Records indicate history of HIV disease. She is awake and alert. Past Patient History - Infectious Disease Hx of Infectious Diseases: None - Past Medical History & Family History Past Medical History?: Yes - Past Social History Smoking Status: Light Smoker < 10 Cigarettes Daily - CARDIAC Hx Hypercholesterolemia: Yes Hx Hypertension: Yes Other/Comment: ELEVATED TROPONIN - PULMONARY Hx Asthma: Yes Hx Chronic Obstructive Pulmonary Disease (COPD): Yes Hx Pneumonia: Yes - NEUROLOGICAL HX Cerebrovascular Accident: Yes Hx Seizures: Yes - HEENT Hx HEENT Problems: No - RENAL Hx Chronic Kidney Disease: No Other/Comment: H/O JOE - ENDOCRINE/METABOLIC Hx Diabetes Mellitus Type 2: No - HEMATOLOGICAL/ONCOLOGICAL Hx AIDS: Yes Hx Anemia: No Hx Hepatitis C: Yes Hx Human Immunodeficiency Virus (HIV): Yes Hx Sickle Cell Disease: No - INTEGUMENTARY Hx Dermatological Problems: No - MUSCULOSKELETAL/RHEUMATOLOGICAL Hx Musculoskeletal Disorders: No Hx Falls: No Hx Rhabdomyolysis: Yes - GASTROINTESTINAL Hx Gastrointestinal Disorders: No - GENITOURINARY/GYNECOLOGICAL Hx Incontinence: Yes (NEW ONSET) Hx Sexually Transmitted Disorders: No (Patient denied) - PSYCHIATRIC Hx Bipolar Disorder: Yes Hx Depression: Yes Hx Substance Use: Yes - SURGICAL HISTORY Hx Tonsillectomy: Yes - ANESTHESIA Hx Anesthesia: Yes Hx Anesthesia Reactions: No Hx Malignant Hyperthermia: No Meds Allergies/Adverse Reactions: Allergies Allergy/AdvReac Type Severity Reaction Status Date / Time Penicillins Allergy pt reports Verified 07/03/18 08:00 seizures - Medications Medications: Current Medications Acetaminophen (Tylenol 325mg/10.15ml Ud) 650 mg PO Q4H PRN PRN Reason: Temperature Albuterol/Ipratropium (Duoneb 3 Mg/0.5 Mg (3 Ml) Ud) 3 ml INH RQ4 [facility] Last Admin: 07/23/18 07:50 Dose: 3 ml Amlodipine Besylate (Norvasc) 5 mg PO DAILY [facility] Atorvastatin Calcium (Lipitor) 20 mg PO DAILY@2200 [facility] Last Admin: 07/22/18 21:12 Dose: 20 mg Dolutegravir Sodium (Tivicay) 50 mg PO DAILY [facility]; Protocol Duloxetine HCl (Cymbalta) 30 mg PO BID [facility] Last Admin: 07/22/18 17:10 Dose: 30 mg Emtricitabine/Tenofovir (Truvada 200 Mg-300 Mg) 1 tab PO DAILY [facility]; Protocol Guaifenesin/Dextromethorphan (Mucinex-Dm 600-30 Mg) 2 tab PO BID [facility] Last Admin: 07/22/18 19:00 Dose: 2 tab Levofloxacin/Dextrose (Levaquin 750mg) 750 mg in 150 mls @ 100 mls/hr IVPB DAILY@0600 [facility] Last Admin: 07/23/18 05:42 Dose: 100 mls/hr Vancomycin HCl 1 gm/ Sodium (Chloride) 250 mls @ 166.667 mls/hr IVPB DAILY@1700 [facility] Last Admin: 07/22/18 17:11 Dose: 166.667 mls/hr Lactic Acid (Lac-Hydrin 12% Lotion (225 G)) 1 applic TOP Q12 [facility] Lactobacillus Acidophilus (Bacid Acidophilus) 1 cap PO BID [facility] Last Admin: 07/22/18 17:10 Dose: 1 cap Magnesium Oxide (Mag-Ox) 400 mg PO BID [facility] Last Admin: 07/22/18 17:10 Dose: 400 mg Methylprednisolone (Solu-Medrol) 40 mg IVP DAILY [facility] Pantoprazole Sodium (Protonix Ec Tab) 40 mg PO DAILY [facility] Quetiapine Fumarate (Seroquel) 200 mg PO HS [facility] Last Admin: 07/22/18 21:12 Dose: 200 mg Senna/Docusate Sodium (Senokot S 50 Mg-8.6 Mg) 2 tab PO BID [facility] Last Admin: 07/22/18 17:10 Dose: 2 tab Trimethoprim/Sulfamethoxazole (Bactrim Ds Tab) 1 tab PO DAILY [facility]; Protocol Physical Exam - Constitutional Appears: Chronically Ill - Head Exam Head Exam: ATRAUMATIC, NORMAL INSPECTION, NORMOCEPHALIC - Eye Exam Eye Exam: EOMI, Normal appearance, PERRL Pupil Exam: NORMAL ACCOMODATION, PERRL - ENT Exam ENT Exam: Mucous Membranes Moist, Normal Exam - Neck Exam Neck exam: Positive for: Normal Inspection - Respiratory Exam Respiratory Exam: Prolonged Expiratory Phase, Rales, NORMAL BREATHING PATTERN - Cardiovascular Exam Cardiovascular Exam: REGULAR RHYTHM - GI/Abdominal Exam GI & Abdominal Exam: Normal Bowel Sounds, Soft. absent: Tenderness - Rectal Exam Rectal Exam: NORMAL INSPECTION - Extremities Exam Extremities exam: Positive for: normal inspection Additional comments: weakness of r arm and leg - Back Exam Back exam: NORMAL INSPECTION - Neurological Exam Neurological exam: Alert, CN II-XII Intact, Oriented x3, Reflexes Normal Additional comments: r hemipareses and aphasia - Psychiatric Exam Psychiatric exam: Flat Affect - Skin Skin Exam: Dry, Intact, Normal Color, Warm Results - Vital Signs Recent Vital Signs: Last Vital Signs Temp Pulse 77 07/22/18 20:36 Resp 20 07/22/18 16:25 BP Pulse Ox 99 07/22/18 16:25 - Labs Labs: Laboratory Results - last 24 hr 07/22/18 17:21 POC Glucose (mg/dL) 98 Assessment & Plan - Assessment and Plan (Free Text) Assessment: cva respiratory failure improved aspiration pneumonia hx of hiv dz htn hx of asthma hx of seizures Plan: continue rx as ordered repeat cxr - Date & Time Date: 07/23/18 Time: 09:07
[2018-07-23] MEDS: guaiFENesin-DM 600-30 mg ER Tab PO SCH ×2 (09:09→17:04)
[2018-07-23] MEDS: Magnesium Oxide 400 mg Tab UD PO SCH ×2 (09:09→17:03)
[2018-07-23] MEDS: Tmp-Smz 800 mg-160 mg DS Tab PO SCH (09:09)
[2018-07-23] MEDS: Docusate-Senna 50 mg-8.6 mg Tab PO SCH ×2 (09:10→17:04)
[2018-07-23] MEDS: MethylPREDNISolone 40 mg Vial IVP SCH (09:10)
[2018-07-23] MEDS: Pantoprazole 40 mg EC Tab PO SCH (09:10)
[2018-07-23] MEDS: Emtricitabine-Tenofovir 200 mg-300 mg Tab PO SCH (09:11)
[2018-07-23] MEDS: Lactobacillus Acidophilus 500 MU Cap PO SCH ×2 (09:44→17:07)
--- NOTE | 2018-07-23 11:01 | CP.PCM.CON ---
History of Present Illness - History of Present Illness History of Present Illness: 58 y/o F with PMhx of positive HIV, Substance abuse, Asthma, bipolar disorder, Chronic Hep C was brought by EMS after being found unconscious and lethargic. On admission was found to have acute CVA with right sided weakness, Influenza A Ag + , Rhabdo/ JOE, resp failure and pneumonia --Head CT: suggestive of left sided ischemia --CXR: Possible pneumonia in lower lobes. ? hilar adenopathy/mass. --MRI Brain: multifocal late acute/early subacte infarctions in L posterior parietal lobe, late acute/early subacute infarctions in L posterior parietal lobe, increased FLAIR hyperintensity in L cortical sulci (possibly subarachnoid hemorrhage, non-specific proteinaceous hyperintense CSF) Transferred to rehab for PT /OT ID consulted for antibioitic management Review of Systems - Review of Systems All systems: reviewed and no additional remarkable complaints except - Constitutional Constitutional: As Per HPI - EENT Eyes: absent: As Per HPI, Blind Spots, Blurred Vision, Change in Vision, Decreased Night Vision, Diplopia, Discharge, Dry Eye, Exophthalmos, Floaters, Irritation, Itchy Eyes, Loss of Peripheral Vision, Pain, Photophobia, Requires Corrective Lenses, Sees Flashes, Spots in Vision, Tunnel Vision, Other Visual Disturbances, Loss of Vision, Other Ears: absent: As Per HPI, Decreased Hearing, Ear Discharge, Ear Pain, Tinnitus, Abnormal Hearing, Disequilibrium, Dizziness, Other Nose/Mouth/Throat: absent: As Per HPI, Epistaxis, Nasal Congestion, Nasal Discharge, Nasal Obstruction, Nasal Trauma, Nose Pain, Post Nasal Drip, Sinus Pain, Sinus Pressure, Bleeding Gums, Change in Voice, Dental Pain, Dry Mouth, Dysphagia, Halitosis, Hoarsness, Lip Swelling, Mouth Lesions, Mouth Pain, Odynophagia, Sore Throat, Throat Swelling, Tongue Swelling, Facial Pain, Neck Pain, Neck Mass, Other - Breasts Breasts: absent: As Per HPI, Change in Shape, Mass, Pain, Nipple Discharge, Nipple Inversion, Skin Changes, Swelling, Other - Cardiovascular Cardiovascular: As Per HPI - Respiratory Respiratory: As Per HPI - Gastrointestinal Gastrointestinal: absent: As Per HPI, Abdominal Pain, Belching, Bloating, Change in Bowel Habits, Change in Stool Character, Coffee Ground Emesis, Constipation, Cramping, Diarrhea, Dyspepsia, Dysphagia, Early Satiety, Excessive Flatus, Fecal Incontinence, Heartburn, Hematemesis, Hematochezia, Loose Stools, Melena, Nausea, Odynophagia, Temesmus, Vomiting, Other - Genitourinary Genitourinary: absent: As Per HPI, Change in Urinary Stream, Difficulty Urinating, Dysuria, Flank Pain, Hematuria, Pyuria, Nocturia, Urinary Incontinence, Urinary Frequency, Urinary Hesitance, Urinary Urgency, Voiding Freq/Small Amts, Freq UTI, Hx Renal/Bladder Calculi, Hx /Renal Surgery, Bladder Distension, Other - Reproductive: Female Reproductive:Female: absent: As Per HPI, Amenorrhea, Amenorrhea/ Control, Currently Menstual, Cycle <21 Days, Cycle >35 Days, Cycle Variable, Menses 1-7 Days, Menses >/= 8 Days, Menses Variable, Cycle > 4 Weeks Between, No Menses for 6 Months, Heavy Menses, Light Menses, Normal Menses, Spotting Between Cycles, S/P Hysterectomy, Menopausal, Post Menopausal, Premenarche, Abnormal Vaginal Bleeding, Dysmenorrhea, Dyspareunia, Genital Lesions, Genital Pruritis, Pelvic Pain, Prolapse Symptoms, Sexual Dysfunction, Vaginal Discharge, Vaginal Dryness, Vaginal Odor, Vaginal Pruritis, Other - Menstruation Menstruation: absent: As Per HPI, Amenorrhea, Amenorrhea/ Control, Currently Menstual, Cycle <21 Days, Cycle >35 Days, Cycle Variable, Menses 1-7 Days, Menses >/= 8 Days, Menses Variable, Cycle > 4 Weeks Between, No Menses for 6 Months, Heavy Menses, Light Menses, Normal Menses, Spotting Between Cycles, S/P Hysterectomy, Menopausal, Post Menopausal, Premenarche, Abnormal Vaginal Bleeding, Dysmenorrhea, Other - Musculoskeletal Musculoskeletal: absent: As Per HPI, Abnormal Gait, Arthralgias, Atrophy, Back Pain, Deformity, Joint Swelling, Limited Range of Motion, Loss of Height, Muscle Cramps, Muscle Weakness, Myalgias, Neck Pain, Numbness, Radiating Pain into Limb, Stiffness, Tingling, Other - Integumentary Integumentary: absent: As Per HPI, Acne, Alopecia, Bleeding Lesions, Change in Hair, Change in Nails, Change in Pigmentation, Changing Lesions, Dry Skin, Erythema, Furuncle, Hirsutism, Lesions, New Lesions, Non-Healing Lesions, Photosensitivity, Pruritus, Rash, Skin Pain, Skin Ulcer, Sores, Striae, Swelling, Unusual Bruising, Wounds, Jaundice, Other - Neurological Neurological: As Per HPI - Psychiatric Psychiatric: As Per HPI - Endocrine Endocrine: absent: As Per HPI, Change in Body Appearance, Change in Libido, Cold Intolorance, Deepening of Voice, Excessive Sweating, Fatigue, Flushing, Heat Intolorance, Increase in Ring/Shoe/Hat Size, Palpitations, Polydipsia, Polyphagia, Polyuria, Other - Hematologic/Lymphatic Hematologic: As Per HPI Past Patient History - Infectious Disease Hx of Infectious Diseases: None - Past Medical History & Family History Past Medical History?: Yes - Past Social History Smoking Status: Light Smoker < 10 Cigarettes Daily - CARDIAC Hx Hypercholesterolemia: Yes Hx Hypertension: Yes Other/Comment: ELEVATED TROPONIN - PULMONARY Hx Asthma: Yes Hx Chronic Obstructive Pulmonary Disease (COPD): Yes Hx Pneumonia: Yes - NEUROLOGICAL HX Cerebrovascular Accident: Yes Hx Seizures: Yes - HEENT Hx HEENT Problems: No - RENAL Hx Chronic Kidney Disease: No Other/Comment: H/O JOE - ENDOCRINE/METABOLIC Hx Diabetes Mellitus Type 2: No - HEMATOLOGICAL/ONCOLOGICAL Hx AIDS: Yes Hx Anemia: No Hx Hepatitis C: Yes Hx Human Immunodeficiency Virus (HIV): Yes Hx Sickle Cell Disease: No - INTEGUMENTARY Hx Dermatological Problems: No - MUSCULOSKELETAL/RHEUMATOLOGICAL Hx Musculoskeletal Disorders: No Hx Falls: No Hx Rhabdomyolysis: Yes - GASTROINTESTINAL Hx Gastrointestinal Disorders: No - GENITOURINARY/GYNECOLOGICAL Hx Incontinence: Yes (NEW ONSET) Hx Sexually Transmitted Disorders: No (Patient denied) - PSYCHIATRIC Hx Bipolar Disorder: Yes Hx Depression: Yes Hx Substance Use: Yes - SURGICAL HISTORY Hx Tonsillectomy: Yes - ANESTHESIA Hx Anesthesia: Yes Hx Anesthesia Reactions: No Hx Malignant Hyperthermia: No Meds Allergies/Adverse Reactions: Allergies Allergy/AdvReac Type Severity Reaction Status Date / Time Penicillins Allergy pt reports Verified 07/03/18 08:00 seizures - Medications Medications: Current Medications Acetaminophen (Tylenol 325mg/10.15ml Ud) 650 mg PO Q4H PRN PRN Reason: Temperature Albuterol/Ipratropium (Duoneb 3 Mg/0.5 Mg (3 Ml) Ud) 3 ml INH RQ4 [facility]AY Last Admin: 07/23/18 07:50 Dose: 3 ml Amlodipine Besylate (Norvasc) 5 mg PO DAILY [facility] Last Admin: 07/23/18 09:09 Dose: 5 mg Atorvastatin Calcium (Lipitor) 20 mg PO DAILY@2200 [facility] Last Admin: 07/22/18 21:12 Dose: 20 mg Dolutegravir Sodium (Tivicay) 50 mg PO DAILY [facility]; Protocol Last Admin: 07/23/18 09:11 Dose: 50 mg Duloxetine HCl (Cymbalta) 30 mg PO BID [facility] Last Admin: 07/23/18 09:07 Dose: 30 mg Emtricitabine/Tenofovir (Truvada 200 Mg-300 Mg) 1 tab PO DAILY [facility]; Protocol Last Admin: 07/23/18 09:11 Dose: 1 tab Guaifenesin/Dextromethorphan (Mucinex-Dm 600-30 Mg) 2 tab PO BID [facility] Last Admin: 07/23/18 09:09 Dose: 2 tab Levofloxacin/Dextrose (Levaquin 750mg) 750 mg in 150 mls @ 100 mls/hr IVPB DAILY@0600 [facility] Last Admin: 07/23/18 05:42 Dose: 100 mls/hr Vancomycin HCl 1 gm/ Sodium (Chloride) 250 mls @ 166.667 mls/hr IVPB DAILY@1700 [facility] Last Admin: 07/22/18 17:11 Dose: 166.667 mls/hr Lactic Acid (Lac-Hydrin 12% Lotion (225 G)) 1 applic TOP Q12 [facility] Last Admin: 07/23/18 09:08 Dose: 1 applic Lactobacillus Acidophilus (Bacid Acidophilus) 1 cap PO BID [facility] Last Admin: 07/23/18 09:44 Dose: 1 cap Magnesium Oxide (Mag-Ox) 400 mg PO BID [facility] Last Admin: 07/23/18 09:09 Dose: 400 mg Methylprednisolone (Solu-Medrol) 40 mg IVP DAILY [facility] Last Admin: 07/23/18 09:10 Dose: 40 mg Pantoprazole Sodium (Protonix Ec Tab) 40 mg PO DAILY [facility] Last Admin: 07/23/18 09:10 Dose: 40 mg Quetiapine Fumarate (Seroquel) 200 mg PO HS [facility] Last Admin: 07/22/18 21:12 Dose: 200 mg Senna/Docusate Sodium (Senokot S 50 Mg-8.6 Mg) 2 tab PO BID [facility] Last Admin: 07/23/18 09:10 Dose: 2 tab Trimethoprim/Sulfamethoxazole (Bactrim Ds Tab) 1 tab PO DAILY [facility]; Protocol Last Admin: 07/23/18 09:09 Dose: 1 tab Physical Exam - Constitutional Appears: Non-toxic, No Acute Distress, Chronically Ill - Head Exam Head Exam: NORMOCEPHALIC - Eye Exam Eye Exam: absent: Scleral icterus - ENT Exam ENT Exam: Mucous Membranes Dry, Normal External Ear Exam, Normal Oropharynx - Neck Exam Neck exam: Negative for: Lymphadenopathy - Respiratory Exam Respiratory Exam: Decreased Breath Sounds - Cardiovascular Exam Cardiovascular Exam: REGULAR RHYTHM, +S1, +S2 - GI/Abdominal Exam GI & Abdominal Exam: absent: Diminished Bowel Sounds - Rectal Exam Rectal Exam: Deferred - Exam Exam: NORMAL INSPECTION - Extremities Exam Extremities exam: Positive for: pedal edema - Back Exam Back exam: absent: CVA tenderness (L), CVA tenderness (R) - Neurological Exam Neurological exam: Alert, CN II-XII Intact, Motor Sensory Deficit Additional comments: right sided weakness upper and lower - Psychiatric Exam Psychiatric exam: Depressed - Skin Skin Exam: Dry Results - Vital Signs Recent Vital Signs: Last Vital Signs Temp 96.3 F L 07/23/18 09:02 Pulse 82 07/23/18 09:09 Resp 19 07/23/18 09:02 BP 139/90 07/23/18 09:09 Pulse Ox 96 07/23/18 09:02 - Labs Labs: Laboratory Results - last 24 hr 07/22/18 17:21 POC Glucose (mg/dL) 98 Assessment & Plan (1) Aspiration pneumonia Status: Acute Priority: High (2) COPD (chronic obstructive pulmonary disease) Status: Acute (3) Cerebrovascular accident (CVA) with right hemiparesis Status: Acute Priority: High (4) Depression Status: Acute (5) HIV (human immunodeficiency virus infection) Status: Acute (6) Rhabdomyolysis Status: Acute - Assessment and Plan (Free Text) Assessment: 58 y/o F with PMhx of positive HIV, Substance abuse, Asthma, bipolar disorder, Chronic Hep C was brought by EMS after being found unconscious and lethargic. On admission was found to have acute CVA with right sided weakness, Influenza A Ag + , Rhabdo/ JOE, resp failure and pneumonia Plan : switched to PO Acyclovir , cont IV antibiotics total 14 days
[2018-07-23] MEDS ORDERED: Acetaminophen 650mg/20.3ml solution UD PO PRN (13:42)
--- NOTE | 2018-07-23 14:08 | CP.PCM.HP ---
History of Present Illness - History of Present Illness History of Present Illness: 58-year-old female with PMH HIV, drug abuse, Bipolar Disorder/Depression/Paranoia/Personality Disorder initially admitted for acute multifocal left parietal ischemic stroke with right side hemiparesis, JOE, Influenza A , and Pneumonia. Patient was intubated due to acute respiratory failure with hypercarbia and hypoxemia, self extubated 07/16/18. Respiratory failure and hypoxemia likely secondary to pneumonia; resolved (SPO2 96% on room air, s/p Acetylcysteine 20% 3ml PO BID inhalation, Levaquin 750 mg IV and IV Vanco). Duonebs and solumedrol 40 mg continued. Afebrile, no white count, lactate 0.9, rpt CXR shows improvement. MRI brain (07/11) showed multifocal late acute/early subacte infarctions in L posterior parietal lobe, late acute/early subacute infarctions in L posterior parietal lobe, increased FLAIR hyperintensity in L cortical sulci (possibly subarachnoid hemorrhage, non- specific proteinaceous hyperintense CSF). Atorvastatin 20 mg PO daily given. Toxic metabolic encephalopathy resolved, likely secondary to CVA/drug use/seizure. Hypertension medically managed, as per neuro maintain BP control. Norvasc 5 mg PO and Enalapril 1.25 mg IV Q6 PRN given however patient often refuses medication. Acute renal injury improving, BUN/Cr 29/1.0 from admission 41/2.7. Tolerating normal diet. Influenza A viral infection resolved, s/p 5 day course of Tamiflu 75mg. HAART therapy continued for HIV (Tivicay 50mg daily and Truvada 200mg-300mg daily). CD4 = 135. Acyclovir 500mg Q12H and Bactrim 20 ml Q12H given for prophylaxis. Hep C chronic, HCV viral load pending final result. Continue PT/OT, transfer to sub-acute rehab for further physical therapy and continued IV anibiotics for medical optimization. Present on Admission - Present on Admission Any Indicators Present on Admission: No Review of Systems - Constitutional Constitutional: absent: Anorexia, Headache, Lethargy - EENT Eyes: absent: Change in Vision - Cardiovascular Cardiovascular: absent: Chest Pain at Rest - Respiratory Respiratory: absent: Dyspnea - Gastrointestinal Gastrointestinal: absent: Abdominal Pain - Genitourinary Genitourinary: absent: Dysuria - Neurological Neurological: Abnormal Speech (slurred, baseline since admission), Confusion (baseline since admission), Weakness (baseline since admission - R extremities ) - Psychiatric Psychiatric: Confusion (baseline since admission) Past Patient History - Infectious Disease Hx of Infectious Diseases: None - Past Medical History & Family History Past Medical History?: Yes - Past Social History Smoking Status: Light Smoker < 10 Cigarettes Daily - CARDIAC Hx Hypercholesterolemia: Yes Hx Hypertension: Yes Other/Comment: ELEVATED TROPONIN - PULMONARY Hx Asthma: Yes Hx Chronic Obstructive Pulmonary Disease (COPD): Yes Hx Pneumonia: Yes - NEUROLOGICAL HX Cerebrovascular Accident: Yes Hx Seizures: Yes - HEENT Hx HEENT Problems: No - RENAL Hx Chronic Kidney Disease: No Other/Comment: H/O JEO - ENDOCRINE/METABOLIC Hx Diabetes Mellitus Type 2: No - HEMATOLOGICAL/ONCOLOGICAL Hx AIDS: Yes Hx Anemia: No Hx Hepatitis C: Yes Hx Human Immunodeficiency Virus (HIV): Yes Hx Sickle Cell Disease: No - INTEGUMENTARY Hx Dermatological Problems: No - MUSCULOSKELETAL/RHEUMATOLOGICAL Hx Musculoskeletal Disorders: No Hx Falls: No Hx Rhabdomyolysis: Yes - GASTROINTESTINAL Hx Gastrointestinal Disorders: No - GENITOURINARY/GYNECOLOGICAL Hx Incontinence: Yes (NEW ONSET) Hx Sexually Transmitted Disorders: No (Patient denied) - PSYCHIATRIC Hx Bipolar Disorder: Yes Hx Depression: Yes Hx Substance Use: Yes - SURGICAL HISTORY Hx Tonsillectomy: Yes - ANESTHESIA Hx Anesthesia: Yes Hx Anesthesia Reactions: No Hx Malignant Hyperthermia: No Meds Allergies/Adverse Reactions: Allergies Allergy/AdvReac Type Severity Reaction Status Date / Time Penicillins Allergy pt reports Verified 07/03/18 08:00 seizures Physical Exam - Constitutional Appears: Non-toxic, No Acute Distress, Chronically Ill - Head Exam Head Exam: NORMAL INSPECTION - Eye Exam Eye Exam: Normal appearance - ENT Exam ENT Exam: Mucous Membranes Moist Additional comments: facial droop right sided - Neck Exam Neck exam: Positive for: Normal Inspection - Respiratory Exam Respiratory Exam: Decreased Breath Sounds, NORMAL BREATHING PATTERN. absent: Respiratory Distress - Cardiovascular Exam Cardiovascular Exam: REGULAR RHYTHM, +S1, +S2 - GI/Abdominal Exam GI & Abdominal Exam: Soft. absent: Guarding (Right sided weakness), Tenderness - Expanded Neurological Exam Expanded Speech: Slurred Speech Neuro motor strength exam: Left Upper Extremity: 5, Right Upper Extremity: 0, Left Lower Extremity: 5, Right Lower Extremity: 0 - Psychiatric Exam Psychiatric exam: Normal Affect, Normal Mood Additional comments: improved mood - Skin Skin Exam: Dry, Intact, Normal Color, Warm Results - Vital Signs Recent Vital Signs: Last Vital Signs Temp 98.1 F 07/23/18 13:37 Pulse 61 07/23/18 13:37 Resp 19 07/23/18 13:37 BP 131/85 07/23/18 13:37 Pulse Ox 96 07/23/18 13:37 - Labs Labs: Laboratory Results - last 24 hr 07/22/18 17:21 POC Glucose (mg/dL) 98 Assessment & Plan - Assessment and Plan (Free Text) Assessment: 58-year-old female with PMhx of positive HIV, Substance abuse, Asthma, bipolar disorder, Chronic Hep C was brought by EMS after being found unconscious and lethargic and found to have acute CVA with right sided weakness, Influenza A, JOE, and respiratory failure/hypoxia likely secondary to pneumonia. Influzenza treated w/tamiflu x5 days, JOE resolved, weakness from CVA persists. Pt transferred to acute rehab for continued IV antibiotics, pneumonia treatment and continued physical/occupational therapy. Plan: Acute ischemic stroke CVA with R hemiparesis - MRI Brain (07/11): multifocal late acute/early subacte infarctions in L posterior parietal lobe, late acute/early subacute infarctions in L posterior parietal lobe, increased FLAIR hyperintensity in L cortical sulci (possibly subarachnoid hemorrhage, non-specific proteinaceous hyperintense CSF) - Video EEG monitoring as per Neurology, finished (Dr Dennis 07/17): VEEG showed slowing, but no seizures. - CT Head (07/17): small elliptical hemorrhage ext capsule - Neuro rec (Dr Dennis): Continue to hold Lovenox and ASA for now as most recent CT Head and Brain MRI show hemorrhagic conversion, Repeat CT Head in the morning 07/19/18 to evaluate the hemorrhage. Maintain BP control. CTA head and neck to be done nikolay; still pending renal function improvement. Continue ICU management. - Amlodipine 5mg PO daily - PT rec (07/18): sub-acute rehab for PT - Continue PT/OT Community acquired Pneumonia - Afebrile, no white count, lactate 0.9 - ID consult, Dr Velazco. consider HERMILA when feasible to r/o vegetation, clot, other - Levaquin 750 mg IV advanced to Q24H, renal function improving (previously Q48H began 07/13) - S/P Vancomycin 1gm Q24H, 3 doses, vanc trough 07/17/18: 12.3 - Solumedrol 40mg IVP - Duoneb Q4H - Mucinex-DM 600-30 mg 2 tab PO BID HIV - HAART resumed (Tivicay 50mg daily and Truvada 200mg-300mg daily) - CD4 = 135 - Screen for opportunistic infections - Acyclovir 500mg Q12H and Bactrim 20 ml Q12H for prophylaxis - ID consult, Dr Velazco Chronic hepatitis C - Chronic - HCV viral load pending final result - ID consult, Dr Velazco Bipolar Disorder/Depression/Paranoia/Personality Disorder - Continue home meds: ---Cymbalta 30mg BID ---Seroquel 200 mg PO HS [facility]
--- NOTE | 2018-07-23 15:40 | CP.PCM.CON ---
History of Present Illness - History of Present Illness History of Present Illness: 58 year old female for acute rehab with diagnosis of Cva, Acute ischemic infarction with other history of Hiv posititive and opoid abuse Review of Systems - Musculoskeletal Musculoskeletal: Muscle Weakness Past Patient History - Infectious Disease Hx of Infectious Diseases: None - Past Medical History & Family History Past Medical History?: Yes - Past Social History Smoking Status: Light Smoker < 10 Cigarettes Daily - CARDIAC Hx Hypercholesterolemia: Yes Hx Hypertension: Yes Other/Comment: ELEVATED TROPONIN - PULMONARY Hx Asthma: Yes Hx Chronic Obstructive Pulmonary Disease (COPD): Yes Hx Pneumonia: Yes - NEUROLOGICAL HX Cerebrovascular Accident: Yes Hx Seizures: Yes - HEENT Hx HEENT Problems: No - RENAL Hx Chronic Kidney Disease: No Other/Comment: H/O JOE - ENDOCRINE/METABOLIC Hx Diabetes Mellitus Type 2: No - HEMATOLOGICAL/ONCOLOGICAL Hx AIDS: Yes Hx Anemia: No Hx Hepatitis C: Yes Hx Human Immunodeficiency Virus (HIV): Yes Hx Sickle Cell Disease: No - INTEGUMENTARY Hx Dermatological Problems: No - MUSCULOSKELETAL/RHEUMATOLOGICAL Hx Musculoskeletal Disorders: No Hx Falls: No Hx Rhabdomyolysis: Yes - GASTROINTESTINAL Hx Gastrointestinal Disorders: No - GENITOURINARY/GYNECOLOGICAL Hx Incontinence: Yes (NEW ONSET) Hx Sexually Transmitted Disorders: No (Patient denied) - PSYCHIATRIC Hx Bipolar Disorder: Yes Hx Depression: Yes Hx Substance Use: Yes - SURGICAL HISTORY Hx Tonsillectomy: Yes - ANESTHESIA Hx Anesthesia: Yes Hx Anesthesia Reactions: No Hx Malignant Hyperthermia: No Meds Allergies/Adverse Reactions: Allergies Allergy/AdvReac Type Severity Reaction Status Date / Time Penicillins Allergy pt reports Verified 07/03/18 08:00 seizures - Medications Medications: Current Medications Acetaminophen (Tylenol 325mg/10.15ml Ud) 650 mg PO Q4H PRN PRN Reason: Temperature Acetaminophen (Tylenol 650mg/20.3ml Solution Ud) 650 mg PO Q6 PRN PRN Reason: Headache Last Admin: 07/23/18 14:13 Dose: 650 mg Acyclovir (Zovirax) 800 mg PO TID [facility]; Protocol Last Admin: 07/23/18 14:02 Dose: Not Given Albuterol/Ipratropium (Duoneb 3 Mg/0.5 Mg (3 Ml) Ud) 3 ml INH RQ4 [facility] Last Admin: 07/23/18 12:06 Dose: 3 ml Amlodipine Besylate (Norvasc) 5 mg PO DAILY [facility] Last Admin: 07/23/18 09:09 Dose: 5 mg Atorvastatin Calcium (Lipitor) 20 mg PO DAILY@2200 [facility] Last Admin: 07/22/18 21:12 Dose: 20 mg Dolutegravir Sodium (Tivicay) 50 mg PO DAILY [facility]; Protocol Last Admin: 07/23/18 09:11 Dose: 50 mg Duloxetine HCl (Cymbalta) 30 mg PO BID [facility] Last Admin: 07/23/18 09:07 Dose: 30 mg Emtricitabine/Tenofovir (Truvada 200 Mg-300 Mg) 1 tab PO DAILY [facility]; Protocol Last Admin: 07/23/18 09:11 Dose: 1 tab Guaifenesin/Dextromethorphan (Mucinex-Dm 600-30 Mg) 2 tab PO BID [facility] Last Admin: 07/23/18 09:09 Dose: 2 tab Levofloxacin/Dextrose (Levaquin 750mg) 750 mg in 150 mls @ 100 mls/hr IVPB DAILY@0600 [facility] Last Admin: 07/23/18 05:42 Dose: 100 mls/hr Vancomycin HCl 1 gm/ Sodium (Chloride) 250 mls @ 166.667 mls/hr IVPB DAILY@1700 [facility] Last Admin: 07/22/18 17:11 Dose: 166.667 mls/hr Lactic Acid (Lac-Hydrin 12% Lotion (225 G)) 1 applic TOP Q12 [facility] Last Admin: 07/23/18 09:08 Dose: 1 applic Lactobacillus Acidophilus (Bacid Acidophilus) 1 cap PO BID [facility] Last Admin: 07/23/18 09:44 Dose: 1 cap Magnesium Oxide (Mag-Ox) 400 mg PO BID [facility] Last Admin: 07/23/18 09:09 Dose: 400 mg Methylprednisolone (Solu-Medrol) 40 mg IVP DAILY [facility] Last Admin: 07/23/18 09:10 Dose: 40 mg Pantoprazole Sodium (Protonix Ec Tab) 40 mg PO DAILY [facility] Last Admin: 07/23/18 09:10 Dose: 40 mg Quetiapine Fumarate (Seroquel) 200 mg PO HS [facility] Last Admin: 07/22/18 21:12 Dose: 200 mg Senna/Docusate Sodium (Senokot S 50 Mg-8.6 Mg) 2 tab PO BID [facility] Last Admin: 01/07/19 09:10 Dose: 2 tab Trimethoprim/Sulfamethoxazole (Bactrim Ds Tab) 1 tab PO DAILY [facility]; Protocol Last Admin: 07/23/18 09:09 Dose: 1 tab Physical Exam - Constitutional Appears: Well - Head Exam Head Exam: ATRAUMATIC, NORMAL INSPECTION, NORMOCEPHALIC - Eye Exam Eye Exam: EOMI, Normal appearance Pupil Exam: NORMAL ACCOMODATION, PERRL - ENT Exam ENT Exam: Mucous Membranes Moist, Normal Exam - Neck Exam Neck exam: Positive for: Normal Inspection - Respiratory Exam Respiratory Exam: Clear to Auscultation Bilateral, NORMAL BREATHING PATTERN - Cardiovascular Exam Cardiovascular Exam: REGULAR RHYTHM - GI/Abdominal Exam GI & Abdominal Exam: Normal Bowel Sounds - Rectal Exam Rectal Exam: NORMAL INSPECTION - Exam External exam: NORMAL EXTERNAL EXAM - Extremities Exam Extremities exam: Positive for: normal inspection Additional comments: right sided weakness with speech problems - Back Exam Back exam: NORMAL INSPECTION - Neurological Exam Neurological exam: Alert - Psychiatric Exam Psychiatric exam: Normal Affect - Skin Skin Exam: Normal Color Results - Vital Signs Recent Vital Signs: Last Vital Signs Temp 98.1 F 07/23/18 13:37 Pulse 61 07/23/18 13:37 Resp 19 07/23/18 13:37 BP 131/85 07/23/18 13:37 Pulse Ox 96 07/23/18 13:37 - Labs Labs: Laboratory Results - last 24 hr 07/22/18 17:21 POC Glucose (mg/dL) 98 Assessment & Plan (1) Aspiration pneumonia Status: Acute Priority: High (2) COPD (chronic obstructive pulmonary disease) Status: Acute (3) COPD with exacerbation Status: Acute - Assessment and Plan (Free Text) Assessment: CVa with acute ischemic stroke with history of HIV, OPoid abuse admitted for Acute rehab. Plan for physical, occupational, rec and speech therapy program. To write overall plan of care.
--- NOTE | 2018-07-23 15:44 | PCM.OPOC ---
Physiatry Overall Plan of Care - Overall Plan of Care Estimated Length of Stay in Weeks: 3 Rehab Impairment: Mobility, Gait, Cognition, Speech, Balance, Coordination Etiologic Diagnosis: Cerebrovascular Accident Rehab/Medical Prognosis: Fair - Anticipated Interventions Physical Therapy:: Yes Occupational Therapy:: Yes Speech Therapy:: Yes Recreational Therapy:: Yes - Therapy Goals Bed Mobility: Independent Ambulation: Supervision Functional Positional Changes:: Independent - Functional Outcomes Functional Outcomes: fair - Discharge Plan Identification of Barriers to Discharge: Cognition Discharge Destination: Home
--- NOTE | 2018-07-23 15:48 | RAD ---
Date of service: 07/23/2018 HISTORY: Follow-up for pneumonia COMPARISON: 07/20/2018. TECHNIQUE: Chest PA and lateral FINDINGS: LINES AND TUBES: None. LUNG AND PLEURA: The lungs are well inflated. There is worsening right lower lobe airspace disease. There is also retrocardiac airspace disease. No pleural effusion or pneumothorax. HEART AND MEDIASTINUM: The heart is not enlarged. No aortic atherosclerotic calcification present. The hilar and mediastinal contours are within normal limits. SKELETAL STRUCTURES: The bony structures are within normal limits for the patient's age. VISUALIZED UPPER ABDOMEN: Normal. OTHER FINDINGS: None. IMPRESSION: Worsening right lower lobe airspace disease which may represent worsening pneumonia. Left retrocardiac airspace disease may represent atelectasis however superimposed pneumonia cannot be excluded. Follow-up after medical management is recommended to ensure complete resolution.
--- NOTE | 2018-07-23 18:02 | CP.PCM.CON ---
History of Present Illness - History of Present Illness History of Present Illness: Neurology Consultation Note: Mrs. Kilgore is a 58-year-old woman with a past medical history of HIV, opiate abuse, who was recently admitted for ischemic stroke involving the left MCA/LEARNING FACILITATOR watershed zones and some slight right MCA/LEARNING FACILITATOR watershed infarcts, with follow-up imaging showing partial hemorrhagic transformation. She was stabilized in [facility], and transferred to acute rehab, where I was consulted by the rehab team. She continues to have speech difficulty and mostly right side weakness. Review of Systems - Review of Systems Systems not reviewed;Unavailable: Altered Mental Status Past Patient History - Infectious Disease Hx of Infectious Diseases: None - Past Medical History & Family History Past Medical History?: Yes - Past Social History Smoking Status: Light Smoker < 10 Cigarettes Daily - CARDIAC Hx Hypercholesterolemia: Yes Hx Hypertension: Yes Other/Comment: ELEVATED TROPONIN - PULMONARY Hx Asthma: Yes Hx Chronic Obstructive Pulmonary Disease (COPD): Yes Hx Pneumonia: Yes - NEUROLOGICAL HX Cerebrovascular Accident: Yes Hx Seizures: Yes - HEENT Hx HEENT Problems: No - RENAL Hx Chronic Kidney Disease: No Other/Comment: H/O JOE - ENDOCRINE/METABOLIC Hx Diabetes Mellitus Type 2: No - HEMATOLOGICAL/ONCOLOGICAL Hx AIDS: Yes Hx Anemia: No Hx Hepatitis C: Yes Hx Human Immunodeficiency Virus (HIV): Yes Hx Sickle Cell Disease: No - INTEGUMENTARY Hx Dermatological Problems: No - MUSCULOSKELETAL/RHEUMATOLOGICAL Hx Musculoskeletal Disorders: No Hx Falls: No Hx Rhabdomyolysis: Yes - GASTROINTESTINAL Hx Gastrointestinal Disorders: No - GENITOURINARY/GYNECOLOGICAL Hx Incontinence: Yes (NEW ONSET) Hx Sexually Transmitted Disorders: No (Patient denied) - PSYCHIATRIC Hx Bipolar Disorder: Yes Hx Depression: Yes Hx Substance Use: Yes - SURGICAL HISTORY Hx Tonsillectomy: Yes - ANESTHESIA Hx Anesthesia: Yes Hx Anesthesia Reactions: No Hx Malignant Hyperthermia: No Meds Allergies/Adverse Reactions: Allergies Allergy/AdvReac Type Severity Reaction Status Date / Time Penicillins Allergy pt reports Verified 07/03/18 08:00 seizures - Medications Medications: Current Medications Acetaminophen (Tylenol 325mg/10.15ml Ud) 650 mg PO Q4H PRN PRN Reason: Temperature Acetaminophen (Tylenol 650mg/20.3ml Solution Ud) 650 mg PO Q6 PRN PRN Reason: Headache Last Admin: 07/23/18 14:13 Dose: 650 mg Acyclovir (Zovirax) 800 mg PO TID [facility]; Protocol Last Admin: 07/23/18 17:04 Dose: 800 mg Albuterol/Ipratropium (Duoneb 3 Mg/0.5 Mg (3 Ml) Ud) 3 ml INH RQ4 [facility] Last Admin: 07/23/18 15:38 Dose: Not Given Amlodipine Besylate (Norvasc) 5 mg PO DAILY [facility] Last Admin: 07/23/18 09:09 Dose: 5 mg Atorvastatin Calcium (Lipitor) 20 mg PO DAILY@2200 [facility] Last Admin: 07/22/18 21:12 Dose: 20 mg Dolutegravir Sodium (Tivicay) 50 mg PO DAILY [facility]; Protocol Last Admin: 07/23/18 09:11 Dose: 50 mg Duloxetine HCl (Cymbalta) 30 mg PO BID [facility] Last Admin: 07/23/18 17:03 Dose: 30 mg Emtricitabine/Tenofovir (Truvada 200 Mg-300 Mg) 1 tab PO DAILY [facility]; Protocol Last Admin: 07/23/18 09:11 Dose: 1 tab Guaifenesin/Dextromethorphan (Mucinex-Dm 600-30 Mg) 2 tab PO BID [facility] Last Admin: 07/23/18 17:04 Dose: 2 tab Levofloxacin/Dextrose (Levaquin 750mg) 750 mg in 150 mls @ 100 mls/hr IVPB DAILY@0600 [facility] Last Admin: 07/23/18 05:42 Dose: 100 mls/hr Vancomycin HCl 1 gm/ Sodium (Chloride) 250 mls @ 166.667 mls/hr IVPB DAILY@1700 [facility] Last Admin: 07/23/18 17:29 Dose: 166.667 mls/hr Lactic Acid (Lac-Hydrin 12% Lotion (225 G)) 1 applic TOP Q12 [facility] Last Admin: 07/23/18 09:08 Dose: 1 applic Lactobacillus Acidophilus (Bacid Acidophilus) 1 cap PO BID [facility] Last Admin: 07/23/18 17:07 Dose: 1 cap Magnesium Oxide (Mag-Ox) 400 mg PO BID [facility] Last Admin: 07/23/18 17:03 Dose: 400 mg Methylprednisolone (Solu-Medrol) 40 mg IVP DAILY [facility] Last Admin: 07/23/18 09:10 Dose: 40 mg Pantoprazole Sodium (Protonix Ec Tab) 40 mg PO DAILY [facility] Last Admin: 07/23/18 09:10 Dose: 40 mg Quetiapine Fumarate (Seroquel) 200 mg PO HS [facility] Last Admin: 07/22/18 21:12 Dose: 200 mg Senna/Docusate Sodium (Senokot S 50 Mg-8.6 Mg) 2 tab PO BID [facility] Last Admin: 07/23/18 17:04 Dose: 2 tab Trimethoprim/Sulfamethoxazole (Bactrim Ds Tab) 1 tab PO DAILY [facility]; Protocol Last Admin: 07/23/18 09:09 Dose: 1 tab Physical Exam - Constitutional Appears: Well - Head Exam Head Exam: ATRAUMATIC, NORMAL INSPECTION, NORMOCEPHALIC - Eye Exam Eye Exam: EOMI, Normal appearance, PERRL - ENT Exam ENT Exam: Mucous Membranes Moist, Normal Exam - Neck Exam Neck exam: Positive for: Normal Inspection - Respiratory Exam Respiratory Exam: Clear to Auscultation Bilateral, NORMAL BREATHING PATTERN - Cardiovascular Exam Cardiovascular Exam: REGULAR RHYTHM, +S1, +S2 - GI/Abdominal Exam GI & Abdominal Exam: Normal Bowel Sounds, Soft. absent: Tenderness - Rectal Exam Rectal Exam: Deferred - Neurological Exam Neurological exam: Abnormal Gait, CN II-XII Intact, Oriented x3, Reflexes Normal Additional comments: Speech is aphasic, with paraphasic errors, difficulty with comprehension and difficulty with speech production as well as repetition intermittently. She is awake, alert and can be oriented after coaching. Right side hemiplegia with 0/5 strength in upper and lower extremities, sensation is also diminished on the right side. The left side is normal in strength and sensation. She is hyper- reflexive thorughout with upgoing plantar responses. Unable to stand or ambulate. NIHSS= 12 Results - Vital Signs Recent Vital Signs: Last Vital Signs Temp 98.1 F 07/23/18 13:37 Pulse 80 07/23/18 14:06 Resp 19 07/23/18 13:37 BP 131/85 07/23/18 13:37 Pulse Ox 97 07/23/18 14:06 - Labs Labs: Laboratory Results - last 24 hr 07/23/18 16:10 Vancomycin Trough 5.7 Assessment & Plan (1) CVA (cerebral vascular accident) Assessment and Plan: Likely secondary to hypotension, hypo-perfusion, or could be cardio-embolic, but that is less likely. Will continue current therapy and plan. A repeat non- contrast CT scan of the head may be obtained on Monday, and we may consider starting her on aspirin 81 mg daily for secondary stroke prevention if there is stability in hemorrhagic products and there is no expansion. Otherwise, continue risk factor modification and rehab plan. Thank you for the consultation, we will continue to follow along with the primary team. Status: Acute
[2018-07-24] MEDS: Albuterol-Ipratrop 3 mg / 0.5 (3 ml) UD INH SCH ×6 (04:05→23:48)
[2018-07-24] MEDS: levoFLOXacin 750 mg in D5W 750 MG/150 ML BAG IVPB SCH (05:45)
[2018-07-24 06:34] LABS: HEMOGLOBIN 12.2 g/dL (12.0-16.0); MEAN CELL VOLUME 84.7 fl (81.0-99.0); MEAN CORPUSCULAR HEMOGLOBIN 27.8 pg (27.0-31.0); MEAN CORPUSCULAR HGB CONC 32.8 g/dL (33.0-37.0); RBC 4.39 Mil/uL (3.80-5.20); RED CELL DISTRIBUTION WIDTH 17.9 % (11.5-14.5); WHITE BLOOD COUNT 4.9 K/uL (4.8-10.8)
[2018-07-24 06:46] LABS: BLOOD UREA NITROGEN 38 mg/dl (7-17); CALCIUM 8.3 mg/dL (8.4-10.2); GFR NON-AFRICAN AMERICAN > 60
[2018-07-24] MEDS: Emtricitabine-Tenofovir 200 mg-300 mg Tab PO SCH (08:17)
[2018-07-24] MEDS: Lactobacillus Acidophilus 500 MU Cap PO SCH ×2 (08:17→16:15)
[2018-07-24] MEDS: Tmp-Smz 800 mg-160 mg DS Tab PO SCH (08:17)
[2018-07-24] MEDS: guaiFENesin-DM 600-30 mg ER Tab PO SCH ×2 (08:18→16:16)
[2018-07-24] MEDS: Magnesium Oxide 400 mg Tab UD PO SCH ×2 (08:19→16:16)
[2018-07-24] MEDS: Pantoprazole 40 mg EC Tab PO SCH (08:20)
[2018-07-24] MEDS: MethylPREDNISolone 40 mg Vial IVP SCH (08:21)
[2018-07-24] MEDS: Docusate-Senna 50 mg-8.6 mg Tab PO SCH ×2 (08:21→16:16)
--- NOTE | 2018-07-24 09:36 | CP.PCM.PN ---
Subjective - Date & Time of Evaluation Date of Evaluation: 07/24/18 Time of Evaluation: 09:36 - Subjective Subjective: NO NEW CLINICAL FINDINGS NO SOB CXR RESULTS NOTED Objective - Vital Signs/Intake and Output Vital Signs (last 24 hours): Temp Pulse Resp BP Pulse Ox 98.2 F 78 20 133/78 96 07/23/18 20:00 07/24/18 08:18 07/24/18 00:30 07/24/18 08:18 07/24/18 00:30 - Medications Medications: Current Medications Acetaminophen (Tylenol 325mg/10.15ml Ud) 650 mg PO Q4H PRN PRN Reason: Temperature Acetaminophen (Tylenol 650mg/20.3ml Solution Ud) 650 mg PO Q6 PRN PRN Reason: Headache Last Admin: 07/23/18 14:13 Dose: 650 mg Acyclovir (Zovirax) 800 mg PO TID [facility]; Protocol Last Admin: 07/24/18 08:22 Dose: 800 mg Albuterol/Ipratropium (Duoneb 3 Mg/0.5 Mg (3 Ml) Ud) 3 ml INH RQ4 [facility] Last Admin: 07/24/18 08:10 Dose: 3 ml Amlodipine Besylate (Norvasc) 5 mg PO DAILY [facility] Last Admin: 07/24/18 08:18 Dose: 5 mg Atorvastatin Calcium (Lipitor) 20 mg PO DAILY@2200 [facility] Last Admin: 07/23/18 21:11 Dose: 20 mg Dolutegravir Sodium (Tivicay) 50 mg PO DAILY [facility]; Protocol Last Admin: 07/24/18 08:22 Dose: 50 mg Duloxetine HCl (Cymbalta) 30 mg PO BID [facility] Last Admin: 07/24/18 08:18 Dose: 30 mg Emtricitabine/Tenofovir (Truvada 200 Mg-300 Mg) 1 tab PO DAILY [facility]; Protocol Last Admin: 07/24/18 08:17 Dose: 1 tab Guaifenesin/Dextromethorphan (Mucinex-Dm 600-30 Mg) 2 tab PO BID [facility] Last Admin: 07/24/18 08:18 Dose: 2 tab Levofloxacin/Dextrose (Levaquin 750mg) 750 mg in 150 mls @ 100 mls/hr IVPB DAILY@0600 [facility] Last Admin: 07/24/18 05:45 Dose: 100 mls/hr Vancomycin HCl 1 gm/ Sodium (Chloride) 250 mls @ 166.667 mls/hr IVPB DAILY@1700 [facility] Last Admin: 07/23/18 17:29 Dose: 166.667 mls/hr Lactic Acid (Lac-Hydrin 12% Lotion (225 G)) 1 applic TOP Q12 [facility] Last Admin: 07/24/18 08:19 Dose: 1 applic Lactobacillus Acidophilus (Bacid Acidophilus) 1 cap PO BID [facility] Last Admin: 07/24/18 08:17 Dose: 1 cap Magnesium Oxide (Mag-Ox) 400 mg PO BID [facility] Last Admin: 07/24/18 08:19 Dose: 400 mg Methylprednisolone (Solu-Medrol) 40 mg IVP DAILY [facility] Last Admin: 07/24/18 08:21 Dose: 40 mg Pantoprazole Sodium (Protonix Ec Tab) 40 mg PO DAILY [facility] Last Admin: 07/24/18 08:20 Dose: 40 mg Quetiapine Fumarate (Seroquel) 200 mg PO HS [facility] Last Admin: 07/23/18 21:11 Dose: 200 mg Senna/Docusate Sodium (Senokot S 50 Mg-8.6 Mg) 2 tab PO BID [facility] Last Admin: 07/24/18 08:21 Dose: 2 tab Trimethoprim/Sulfamethoxazole (Bactrim Ds Tab) 1 tab PO DAILY [facility]; Protocol Last Admin: 07/24/18 08:17 Dose: 1 tab - Labs Labs: 07/24/18 05:35 07/24/18 05:35 - Constitutional Appears: No Acute Distress - Head Exam Head Exam: ATRAUMATIC, NORMAL INSPECTION, NORMOCEPHALIC - Eye Exam Eye Exam: EOMI, Normal appearance, PERRL Pupil Exam: NORMAL ACCOMODATION, PERRL - ENT Exam ENT Exam: Mucous Membranes Moist, Normal Exam - Neck Exam Neck Exam: Full ROM, Normal Inspection. absent: Lymphadenopathy - Respiratory Exam Respiratory Exam: Decreased Breath Sounds, Prolonged Expiratory Phase, Rales, NORMAL BREATHING PATTERN - Cardiovascular Exam Cardiovascular Exam: REGULAR RHYTHM, +S1, +S2. absent: Murmur - GI/Abdominal Exam GI & Abdominal Exam: Soft, Normal Bowel Sounds. absent: Tenderness - Rectal Exam Rectal Exam: NORMAL INSPECTION - Extremities Exam Extremities Exam: Full ROM, Normal Capillary Refill, Normal Inspection. absent: Joint Swelling, Pedal Edema - Back Exam Back Exam: NORMAL INSPECTION - Neurological Exam Neurological Exam: Alert, Awake, CN II-XII Intact Additional comments: R HEMIPARESES PERSISTS - Psychiatric Exam Psychiatric exam: Flat Affect - Skin Skin Exam: Dry, Intact, Normal Color, Warm Assessment and Plan - Assessment and Plan (Free Text) Assessment: CVA PNEUMONIA HX OF HIV DZ Plan: CONTINUE CURRENT RX WILL REPEAT CXR BY WEEKS END
--- NOTE | 2018-07-24 11:34 | CP.PCM.PN ---
Subjective - Date & Time of Evaluation Date of Evaluation: 07/24/18 Time of Evaluation: 11:32 - Subjective Subjective: Neurology Follow-Up Note: Mrs. Kilgore was evaluated this afternoon on the acute rehab unit. She is doing well, participating in therapy. She denies any complaints; no h/a, dizziness, visual changes, chest pain, sob, n/v/d. She is pending a modified barium swallow today. Objective - Vital Signs/Intake and Output Vital Signs (last 24 hours): Temp Pulse Resp BP Pulse Ox 98 F 78 20 133/70 97 07/24/18 10:00 07/24/18 10:00 07/24/18 10:00 07/24/18 10:00 07/24/18 10:00 - Medications Medications: Current Medications Acetaminophen (Tylenol 325mg/10.15ml Ud) 650 mg PO Q4H PRN PRN Reason: Temperature Acetaminophen (Tylenol 650mg/20.3ml Solution Ud) 650 mg PO Q6 PRN PRN Reason: Headache Last Admin: 07/23/18 14:13 Dose: 650 mg Acyclovir (Zovirax) 800 mg PO TID [facility]; Protocol Last Admin: 07/24/18 08:22 Dose: 800 mg Albuterol/Ipratropium (Duoneb 3 Mg/0.5 Mg (3 Ml) Ud) 3 ml INH RQ4 [facility] Last Admin: 07/24/18 08:10 Dose: 3 ml Amlodipine Besylate (Norvasc) 5 mg PO DAILY [facility] Last Admin: 07/24/18 08:18 Dose: 5 mg Atorvastatin Calcium (Lipitor) 20 mg PO DAILY@2200 [facility] Last Admin: 07/23/18 21:11 Dose: 20 mg Dolutegravir Sodium (Tivicay) 50 mg PO DAILY [facility]; Protocol Last Admin: 07/24/18 08:22 Dose: 50 mg Duloxetine HCl (Cymbalta) 30 mg PO BID [facility] Last Admin: 07/24/18 08:18 Dose: 30 mg Emtricitabine/Tenofovir (Truvada 200 Mg-300 Mg) 1 tab PO DAILY [facility]; Protocol Last Admin: 07/24/18 08:17 Dose: 1 tab Guaifenesin/Dextromethorphan (Mucinex-Dm 600-30 Mg) 2 tab PO BID [facility] Last Admin: 07/24/18 08:18 Dose: 2 tab Levofloxacin/Dextrose (Levaquin 750mg) 750 mg in 150 mls @ 100 mls/hr IVPB DAILY@0600 [facility] Last Admin: 07/24/18 05:45 Dose: 100 mls/hr Vancomycin HCl 1 gm/ Sodium (Chloride) 250 mls @ 166.667 mls/hr IVPB DAILY@1700 [facility] Last Admin: 07/23/18 17:29 Dose: 166.667 mls/hr Lactic Acid (Lac-Hydrin 12% Lotion (225 G)) 1 applic TOP Q12 [facility] Last Admin: 07/24/18 08:19 Dose: 1 applic Lactobacillus Acidophilus (Bacid Acidophilus) 1 cap PO BID [facility] Last Admin: 07/24/18 08:17 Dose: 1 cap Magnesium Oxide (Mag-Ox) 400 mg PO BID [facility] Last Admin: 07/24/18 08:19 Dose: 400 mg Methylprednisolone (Solu-Medrol) 40 mg IVP DAILY [facility] Last Admin: 07/24/18 08:21 Dose: 40 mg Pantoprazole Sodium (Protonix Ec Tab) 40 mg PO DAILY [facility] Last Admin: 07/24/18 08:20 Dose: 40 mg Quetiapine Fumarate (Seroquel) 200 mg PO HS [facility] Last Admin: 07/23/18 21:11 Dose: 200 mg Senna/Docusate Sodium (Senokot S 50 Mg-8.6 Mg) 2 tab PO BID [facility] Last Admin: 07/24/18 08:21 Dose: 2 tab Trimethoprim/Sulfamethoxazole (Bactrim Ds Tab) 1 tab PO DAILY [facility]; Protocol Last Admin: 07/24/18 08:17 Dose: 1 tab - Labs Labs: 07/24/18 05:35 07/24/18 05:35 - Constitutional Appears: Well, Non-toxic, No Acute Distress - Head Exam Head Exam: ATRAUMATIC, NORMAL INSPECTION, NORMOCEPHALIC - Eye Exam Eye Exam: EOMI, Normal appearance Pupil Exam: NORMAL ACCOMODATION, PERRL - ENT Exam ENT Exam: Mucous Membranes Moist - Neck Exam Neck Exam: Full ROM, Normal Inspection - Respiratory Exam Respiratory Exam: NORMAL BREATHING PATTERN - Extremities Exam Extremities Exam: absent: Calf Tenderness, Full ROM, Pedal Edema Additional comments: RUE and RLE remain flaccid 2/2 CVA - Back Exam Back Exam: Full ROM, NORMAL INSPECTION - Neurological Exam Neurological Exam: Alert, Awake, CN II-XII Intact. absent: Abnormal Gait, Oriented x3 Neuro motor strength exam: Left Upper Extremity: 5, Right Upper Extremity: 0, Left Lower Extremity: 5, Right Lower Extremity: 0 Additional comments: Pt is still aphasic and has difficulty comprehending what is told to her; she is also repetitive in her verbiage at times and responds appropriately other times. Still has slight right sided facial droop Strength to LUE and LLE 5/5 Strength to RUE and RLE 0/5 Reflexes brisk Sensation intact b/l No tremors - Psychiatric Exam Psychiatric exam: Normal Mood - Skin Skin Exam: Normal Color Assessment and Plan (1) CVA (cerebral vascular accident) Assessment & Plan: -CT Head without contrast ordered for 07/27/18, to re-evaluate the hemorrhagic conversion of pt's recent stroke---will f/u with results once it is completed. -We will consider restarting ASA 81 mg PO daily based on CT head results. -Continue statin. -Continue rehab. -Continue treatment and management of other acute issues---pt still being treated for pneumonia by primary team. -Notify neuro team of any acute changes in pt's condition. Case discussed with Dr. Jamison. Status: Acute
--- NOTE | 2018-07-24 12:56 | CP.PCM.PN ---
Subjective - Date & Time of Evaluation Date of Evaluation: 07/24/18 Time of Evaluation: 11:00 - Subjective Subjective: patient sitting in chair , no acute complaints Objective - Vital Signs/Intake and Output Vital Signs (last 24 hours): Temp Pulse Resp BP Pulse Ox 98 F 78 20 133/70 97 07/24/18 10:00 07/24/18 10:00 07/24/18 10:00 07/24/18 10:00 07/24/18 10:00 - Medications Medications: Current Medications Acetaminophen (Tylenol 325mg/10.15ml Ud) 650 mg PO Q4H PRN PRN Reason: Temperature Acetaminophen (Tylenol 650mg/20.3ml Solution Ud) 650 mg PO Q6 PRN PRN Reason: Headache Last Admin: 07/23/18 14:13 Dose: 650 mg Acyclovir (Zovirax) 800 mg PO TID [facility]; Protocol Last Admin: 07/24/18 12:43 Dose: 800 mg Albuterol/Ipratropium (Duoneb 3 Mg/0.5 Mg (3 Ml) Ud) 3 ml INH RQ4 [facility] Last Admin: 07/24/18 12:15 Dose: 3 ml Amlodipine Besylate (Norvasc) 5 mg PO DAILY [facility] Last Admin: 07/24/18 08:18 Dose: 5 mg Atorvastatin Calcium (Lipitor) 20 mg PO DAILY@2200 [facility] Last Admin: 07/23/18 21:11 Dose: 20 mg Dolutegravir Sodium (Tivicay) 50 mg PO DAILY [facility]; Protocol Last Admin: 07/24/18 08:22 Dose: 50 mg Duloxetine HCl (Cymbalta) 30 mg PO BID [facility] Last Admin: 07/24/18 08:18 Dose: 30 mg Emtricitabine/Tenofovir (Truvada 200 Mg-300 Mg) 1 tab PO DAILY [facility]; Protocol Last Admin: 07/24/18 08:17 Dose: 1 tab Guaifenesin/Dextromethorphan (Mucinex-Dm 600-30 Mg) 2 tab PO BID [facility] Last Admin: 07/24/18 08:18 Dose: 2 tab Levofloxacin/Dextrose (Levaquin 750mg) 750 mg in 150 mls @ 100 mls/hr IVPB DAILY@0600 [facility] Last Admin: 07/24/18 05:45 Dose: 100 mls/hr Vancomycin HCl 1 gm/ Sodium (Chloride) 250 mls @ 166.667 mls/hr IVPB DAILY@1700 [facility] Last Admin: 07/23/18 17:29 Dose: 166.667 mls/hr Lactic Acid (Lac-Hydrin 12% Lotion (225 G)) 1 applic TOP Q12 [facility] Last Admin: 07/24/18 08:19 Dose: 1 applic Lactobacillus Acidophilus (Bacid Acidophilus) 1 cap PO BID [facility] Last Admin: 07/24/18 08:17 Dose: 1 cap Magnesium Oxide (Mag-Ox) 400 mg PO BID [facility] Last Admin: 07/24/18 08:19 Dose: 400 mg Methylprednisolone (Solu-Medrol) 40 mg IVP DAILY [facility] Last Admin: 07/24/18 08:21 Dose: 40 mg Pantoprazole Sodium (Protonix Ec Tab) 40 mg PO DAILY [facility] Last Admin: 07/24/18 08:20 Dose: 40 mg Quetiapine Fumarate (Seroquel) 200 mg PO HS [facility] Last Admin: 07/23/18 21:11 Dose: 200 mg Senna/Docusate Sodium (Senokot S 50 Mg-8.6 Mg) 2 tab PO BID [facility] Last Admin: 07/24/18 08:21 Dose: 2 tab Trimethoprim/Sulfamethoxazole (Bactrim Ds Tab) 1 tab PO DAILY [facility]; Protocol Last Admin: 07/24/18 08:17 Dose: 1 tab - Labs Labs: 07/24/18 05:35 07/24/18 05:35 - Constitutional Appears: Well - Head Exam Head Exam: ATRAUMATIC, NORMOCEPHALIC - Eye Exam Eye Exam: EOMI, Normal appearance, PERRL Pupil Exam: NORMAL ACCOMODATION - ENT Exam ENT Exam: Mucous Membranes Moist, Normal Exam - Neck Exam Neck Exam: Full ROM, Normal Inspection - Respiratory Exam Respiratory Exam: NORMAL BREATHING PATTERN - Cardiovascular Exam Cardiovascular Exam: REGULAR RHYTHM - GI/Abdominal Exam GI & Abdominal Exam: Soft, Normal Bowel Sounds - Rectal Exam Rectal Exam: NORMAL INSPECTION - Exam External exam: NORMAL EXTERNAL EXAM - Extremities Exam Extremities Exam: Full ROM, Normal Capillary Refill, Normal Inspection - Neurological Exam Neurological Exam: Alert, Awake Neuro motor strength exam: Left Upper Extremity: 3, Right Upper Extremity: 0, Left Lower Extremity: 3, Right Lower Extremity: 0 - Psychiatric Exam Psychiatric exam: Normal Affect, Normal Mood - Skin Skin Exam: Dry, Intact, Normal Color Assessment and Plan (1) Aspiration pneumonia Status: Acute (2) COPD (chronic obstructive pulmonary disease) Status: Acute (3) COPD with exacerbation Status: Acute - Assessment and Plan (Free Text) Assessment: right hemiplegia secondary to CVA paln for physical, occupational, rec and speech therapy electric stim for patient
[2018-07-24] MEDS ORDERED: Barium Sulfate Susp 0.1% w/v, 0.1% w/w 450 mL Bottle PO ONE (13:19)
[2018-07-24] MEDS ORDERED: Potassium Chloride 20 mEq ER Tab PO ONE (14:36)
--- NOTE | 2018-07-24 15:41 | RAD ---
Date of service: 07/24/2018 HISTORY: Pneumonia COMPARISON: Comparison chest dated 07/23/2018 FINDINGS: LUNGS: Residual patchy infiltrate opacity both lower lobes may represent atelectasis and/or infiltrates. Questionable small right-sided effusion PLEURA: As above. No pneumothorax apparent. CARDIOVASCULAR: No discernible aortic atherosclerotic calcification present. Normal cardiac size. No pulmonary vascular congestion. OSSEOUS STRUCTURES: No significant abnormalities. VISUALIZED UPPER ABDOMEN: Normal. OTHER FINDINGS: None. IMPRESSION: Bibasilar atelectasis and/or infiltrates right greater than left. Questionable small right-sided effusion.
--- NOTE | 2018-07-24 16:04 | RAD ---
Date of service: 07/24/2018 PROCEDURE: Modified barium swallow study. HISTORY: swallow eval COMPARISON: None available. TECHNIQUE: Under fluoroscopic guidance, barium meals of various consistency were administered to the patient by the speech pathologist. Cumulative radiation dose of 7.32 mGy is noted over time frame of 152.1 sec. FINDINGS: Patient aspirated very small amounts of thin barium which improved on chin-tuck maneuver. Oral delay noted. No additional aspiration or penetration occurring on subsequent varied barium food mixtures. IMPRESSION: Limited penetration identified on non chin-tuck swallows of thin barium liquid mixture. Please refer to the detailed report and recommendations of the speech pathologist.
[2018-07-25] MEDS: Albuterol-Ipratrop 3 mg / 0.5 (3 ml) UD INH SCH ×5 (03:16→19:30)
[2018-07-25] MEDS: levoFLOXacin 750 mg in D5W 750 MG/150 ML BAG IVPB SCH (05:48)
[2018-07-25] MEDS: Lactobacillus Acidophilus 500 MU Cap PO SCH ×2 (08:24→16:55)
[2018-07-25] MEDS: Emtricitabine-Tenofovir 200 mg-300 mg Tab PO SCH (08:24)
[2018-07-25] MEDS: Tmp-Smz 800 mg-160 mg DS Tab PO SCH (08:25)
[2018-07-25] MEDS: guaiFENesin-DM 600-30 mg ER Tab PO SCH ×2 (08:26→16:57)
[2018-07-25] MEDS: Magnesium Oxide 400 mg Tab UD PO SCH ×2 (08:26→16:59)
[2018-07-25] MEDS: Pantoprazole 40 mg EC Tab PO SCH (08:29)
[2018-07-25] MEDS: Docusate-Senna 50 mg-8.6 mg Tab PO SCH ×2 (08:29→16:56)
[2018-07-25] MEDS: MethylPREDNISolone 40 mg Vial IVP SCH (08:30)
--- NOTE | 2018-07-25 12:10 | CP.PCM.PN ---
Subjective - Date & Time of Evaluation Date of Evaluation: 07/25/18 Time of Evaluation: 11:45 - Subjective Subjective: no acute complaints at present Objective - Vital Signs/Intake and Output Vital Signs (last 24 hours): Temp Pulse Resp BP Pulse Ox 96.4 F L 81 18 134/79 96 07/25/18 09:00 07/25/18 09:00 07/25/18 09:00 07/25/18 09:00 07/25/18 07:35 - Medications Medications: Current Medications Acetaminophen (Tylenol 325mg/10.15ml Ud) 650 mg PO Q4H PRN PRN Reason: Temperature Acetaminophen (Tylenol 650mg/20.3ml Solution Ud) 650 mg PO Q6 PRN PRN Reason: Headache Last Admin: 07/23/18 14:13 Dose: 650 mg Acyclovir (Zovirax) 800 mg PO TID [facility]; Protocol Last Admin: 07/25/18 08:24 Dose: 800 mg Albuterol/Ipratropium (Duoneb 3 Mg/0.5 Mg (3 Ml) Ud) 3 ml INH RQ4 [facility] Last Admin: 07/25/18 11:00 Dose: Not Given Amlodipine Besylate (Norvasc) 5 mg PO DAILY [facility] Last Admin: 07/25/18 08:28 Dose: 5 mg Atorvastatin Calcium (Lipitor) 20 mg PO DAILY@2200 [facility] Last Admin: 07/24/18 21:41 Dose: 20 mg Dolutegravir Sodium (Tivicay) 50 mg PO DAILY [facility]; Protocol Last Admin: 07/25/18 08:27 Dose: 50 mg Duloxetine HCl (Cymbalta) 30 mg PO BID [facility] Last Admin: 07/25/18 08:25 Dose: 30 mg Emtricitabine/Tenofovir (Truvada 200 Mg-300 Mg) 1 tab PO DAILY [facility]; Protocol Last Admin: 07/25/18 08:24 Dose: 1 tab Guaifenesin/Dextromethorphan (Mucinex-Dm 600-30 Mg) 2 tab PO BID [facility] Last Admin: 07/25/18 08:26 Dose: 2 tab Levofloxacin/Dextrose (Levaquin 750mg) 750 mg in 150 mls @ 100 mls/hr IVPB DAILY@0600 [facility] Last Admin: 07/25/18 05:48 Dose: 100 mls/hr Vancomycin HCl 1 gm/ Sodium (Chloride) 250 mls @ 166.667 mls/hr IVPB DAILY@1700 [facility] Last Admin: 07/24/18 16:17 Dose: 166.667 mls/hr Lactic Acid (Lac-Hydrin 12% Lotion (225 G)) 1 applic TOP Q12 [facility] Last Admin: 07/25/18 08:26 Dose: 1 applic Lactobacillus Acidophilus (Bacid Acidophilus) 1 cap PO BID [facility] Last Admin: 07/25/18 08:24 Dose: 1 cap Magnesium Oxide (Mag-Ox) 400 mg PO BID [facility] Last Admin: 07/25/18 08:26 Dose: 400 mg Methylprednisolone (Solu-Medrol) 40 mg IVP DAILY [facility] Last Admin: 07/25/18 08:30 Dose: 40 mg Pantoprazole Sodium (Protonix Ec Tab) 40 mg PO DAILY [facility] Last Admin: 07/25/18 08:29 Dose: 40 mg Quetiapine Fumarate (Seroquel) 200 mg PO HS [facility] Last Admin: 07/24/18 21:41 Dose: 200 mg Senna/Docusate Sodium (Senokot S 50 Mg-8.6 Mg) 2 tab PO BID [facility] Last Admin: 07/25/18 08:29 Dose: 2 tab Trimethoprim/Sulfamethoxazole (Bactrim Ds Tab) 1 tab PO DAILY [facility]; Protocol Last Admin: 07/25/18 08:25 Dose: 1 tab - Labs Labs: 07/24/18 05:35 07/24/18 05:35 - Constitutional Appears: Well - Head Exam Head Exam: ATRAUMATIC, NORMAL INSPECTION, NORMOCEPHALIC - Eye Exam Eye Exam: EOMI, Normal appearance, PERRL Pupil Exam: NORMAL ACCOMODATION - ENT Exam ENT Exam: Mucous Membranes Moist, Normal Exam - Neck Exam Neck Exam: Full ROM - Respiratory Exam Respiratory Exam: Clear to Ausculation Bilateral, NORMAL BREATHING PATTERN - Cardiovascular Exam Cardiovascular Exam: REGULAR RHYTHM - GI/Abdominal Exam GI & Abdominal Exam: Soft, Normal Bowel Sounds - Rectal Exam Rectal Exam: NORMAL INSPECTION - Exam External exam: NORMAL EXTERNAL EXAM - Extremities Exam Extremities Exam: Full ROM, Normal Capillary Refill - Back Exam Back Exam: NORMAL INSPECTION - Neurological Exam Neurological Exam: Alert, Awake Neuro motor strength exam: Right Upper Extremity: 0, Right Lower Extremity: 0 - Psychiatric Exam Psychiatric exam: Normal Affect, Normal Mood - Skin Skin Exam: Dry, Intact Assessment and Plan (1) Aspiration pneumonia Status: Acute (2) COPD (chronic obstructive pulmonary disease) Status: Acute (3) COPD with exacerbation Status: Acute - Assessment and Plan (Free Text) Assessment: right hemiplegia, plan for Pt Ot RT and speech therapy for team conference
--- NOTE | 2018-07-25 12:14 | PCM.PSYTMC ---
Acute Rehab Team Conference - - Vital Signs: Vital Signs (Last 8 Hours): Vital Signs 07/25/18 07/25/18 07/25/18 07:35 08:28 09:00 Temperature 96.4 F L 96.4 F L Pulse Rate 81 81 81 Respiratory 18 18 Rate Blood Pressure 134/79 134/79 134/79 O2 Sat by Pulse 96 Oximetry Pain: 0 - Precautions: Precautions: Fall Prevention, Aspiration, Cardiac/Pulmonary, Pressure Ulcer - Medications/Other Issues: Comment: on IV Vancomycin - Consults: Comment: ID Dr. Velazco seen 07/23. seen 07/23. seen 07/23 - Bladder Management: Bladder Pattern: Incontinent Voiding Method: Bedpan, Diaper Bladder Management: Maximal Assistance Other Intervention:: with period of incontinence - Transfers: Transfers: Maximal Assistance - ADL's: ADL's: Maximal Assistance - Pain Management: Other Intervention:: denies pain & discomfort - Patient/Family Teaching: Other Intervention:: safety measures & medications usage & possible adverse reactions - Goals/Time Frame: Comment: Falls free - Provider: Registered Nurse:: Jamia Sampson Physical Therapy - Bed Mobility Bed Mobility: Verbal Cues, Moderate Assistance, Maximum Assistance - Transfers Wheelchair to Mat: Verbal Cues, Minimal Assistance, Moderate Assistance Sit to Stand: Verbal Cues, Moderate Assistance, Maximum Assistance - Ambulation Level of Assistance: Maximum Assistance Distance (ft.): 5 Orthoses: -RUE giv-kiah sling, RLE DF wrap. -mirror feedback Comment: -at L wall bar with mirror feedback. -patient able to attain standing with min/mod A. -able to shift weight slightly but takes very shuffled step on LLE with narrow base of support, hip drop on RLE and short step length; patient lacks flexion on LLE with inadequate gait pattern utilized. -requires total A for RLE stability in stance and motion in swing phase. -patient fatigues rapidly and sits down without warning siting fatigue - Stair Negotiation Stairs: Level of Assistance: Not Tested - Standing Balance Static Stand: Moderate Assistance - Pain Pain (assessed during therapy session): 0 Comment: pt denies - Insight/Carryover Insight/Carryover: Fair - Patient/Family Education Comment: safety, therapy schedule, therapy goals, mobility, call olvera, importance of OOB, stroke recovery, orientation to person/place/time/situation, breathing patterns - Assessment/Plan Assessment: Ms. Kilgore required supplemental O2 today secondary to decreased oxygenation status with activity; patient also with rapid respiratory rate of 30-33 breaths/minute, RN aware. PT trialed patient in standing frame today for benefits of prolonged weight bearing and prolonged upright postural control; patient tolerated poorly initially but then became more comfortable and tolerated 2 trials. PT recommends continued skilled PT to maximize safety and independence with all mobility s/p CVA with hemorrhagic conversion with complicated hospital stay including pneumonia, JOE and + flu. Pt is limited by attention, safety, weakness, impaired activity tolerance, motivation and respiratory status. PT recommends discharge to [facility] to continue addressing skilled needs s/p full length of stay in acute rehab. - Goals Timeframe: 7 days Goals: -mod A for bed/mat mobility. -sit to/from stand with min A. -SPT with mod A with WBQC. -propel manual WC with LUE and LLE x 150 feet with supervision. -ambulate 25 feet with WBQC with mod A. -negotiate 4 steps with max A with single L rail - Provider Physical Therapist:: Leann Keita License Number:: [id number] Occupational Therapy - Arousal/Attention/Orientation Level of Consciousness: Awake, Alert Patient Orientation: Person, Place, Time, Appropriate to Age, Appropriate to Situation Assessment Comment: -preoccupied with returning to bed and drinking Pepsi - ADL/IADL Self Feeding: Supervision, Verbal Cues, Set-up Help Grooming: Verbal Cues, Set-up Help, Maximum Assistance Dressing-Upper Ext: Verbal Cues, Set-up Help, Maximum Assistance, Dependent Dressing-Lower Ext: Dependent Comment: Bathing: TBA 07/25/18 - Sitting Balance Static Sitting: Contact Guard Assist Dynamic Sitting: Reaches across midline, Reaches out of base of support, Reaches within base of support, Minimal Assistance Comment: seated unsupported on bed - Transfers Wheelchair to Bed Transfers: Verbal Cues, Set-up Help, Moderate Assistance, Maximum Assistance Toilet Transfers: Verbal Cues, Set-up Help, Maximum Assistance Comment: shower bench: TBA - Wheelchair Management Level of Assistance: Moderate Assistance Distance (ft.): 40 - Upper Extremity Status Right Upper Extremity Comment: no AROM noted ; PROM is WNLS Left Upper Extremity Comment: A/PROM is WFls - Pain Pain (assessed during therapy session): 0 - Insight/Carryover Insight/Carryover: Fair - Patient/Family Education Comment: -adl, transfers/mobility training uisng adaptive/compensatorys straegies. -w/c management/propulsion. -bed positioning/RUE management--laptray. -encourage out of bed activities, adl participation. - review use of call olvera, safety for fall prevention - Assessment/Plan Assessment: Patient is a 58 year old female with dx: L CVA, R hemiplegia, AMS, PNA, Flu A. Precautions: falls, seizures, cardiac, aspiration precautions(nectar liquid/regular bites), O2 via nasal cannula @ 1L continuos 2' PNA. Pt limited by the following: -impaired cognition-attention, inability to follow commands. -impaired sitting/standing balance/tolerance, impaired postural control. - impaired endurance/activity tolerance. -impaired motor control RUE/RLE-no active movement noted). -impaired safety which impact on self care, transfers/mobility and Iadls. Pt will continue skilled Occupational Therapy to maximize function in self care, transfers/mobility using adaptive/compensatory strategies. Pt may benefit from psychiatric intervention for mood. Pt needs re-direction to attend to task at hand. Pt pre-occupied with returning to bed and drinking Pepsi. Pt will likely need GUY 2' extent of physical, cognitive, psychological defiicts. - Goals Timeframe: 10 days Comment: *FEEDING: I/setup. *GROOMING: Moderate assist and verbal cues seated. *UPPER BODY DRESSING: Moderate assit & verbal cues adina-techniques. *LOWER BODY DRESSING: Moderate assist and verbal cues with assistive devices. *TOILETING:Moderate assist and verbal cues with assistive devices. *W/C MANAGEMENT/PROPULSION: propel w/c 50 feet with CG/Min assist and verbal cues. *RUE STRENGTH: increase to 2-/5 throughout so can use as stabilizer during self care, functional mobility. *BATHING: Max assist & verbal cues seated - Provider Occupational Therapist:: Shelby Beltran License Number: [id number] Speech Therapy - Consult Information Patient on Program: Yes Medical Diagnosis: CVA Treatment Diagnosis: -moderate receptive/expressive aphasia. -moderate-severe dysarthria. -mild-moderate dysphagia - Assessment Expressive Language Impairment: Moderate Receptive Language Impairment: Moderate Memory Impairment: Moderate Speech/Articulation Impairment: Severe Comment: mod-severe Dysphagia/Swallowing Impairment: Moderate Comment: mild oral/moderate pharyngeal dysphagia - Plan Assessment: Tanya Kilgore presents with 1.) moderate receptive/expressive aphasia characterized by difficulty following 1-2+ step commands, difficulty answering more complex yes/no and open-ended questions, impaired word retrieval, and impaired sentence formation/thought organization for expressing w ants/needs/ideas; 2.) moderate-severe dysarthria characterized by impaired oral motor strength/ROM and impaired respiration for phonation resulting in impaired articulatory precision negatively impacting intelligibility at the word/phrase level; and 3.) mild oral and moderate pharyngeal dysphagia (per MBS 07/24/18) characterized by intermittent oral holding of regular solids, intermittent mildly delayed swallow initiation with preswallow filling the level of the valleculae at times with thin liquids, min-mild stasis in valleculae with thin liquids, and impaired airway protection with deep laryngeal penetration with thin liquids intermittently with no sensory response resulting in eventual silent aspiration of thin liquids; no penetration/aspiration observe with nectar, puree, or regular solids. Chin tuck manuever did eliminate airway compromise with thin liquids, though pt requires max cueing to effectively complete chin tuck. Recommend diet downgrade to regular solids adn nectar thick liquids; aspiration precautions. Pt would benefit from dysphagia tx with VitalStim (NMES) for improved swallow function and airway protection, as well as speech tx for improved receptive/expressive language skills and speech intelligibility. Plan: Continue Dysphagia Therapy, Continue Speech/Language Therapy Frequency: 3-5 times per week Duration: 1 week Goals/Timeframe: Please see IE completed 07/23/18 and MBS completed 07/24/18 for complete goals/POC Recommendations: -Speech tx 3-5x/week for improved intelligibility and receptive/expressive language. -Dysphagia tx 3-5x/week with VitalStim (NMES) for improved swalloq function. -Downgrade diet to regular solids/nectar thick liquids - Provider Therapist: Pamella Cole License Number: [id number] Recreational Therapy - Participation Participation: Participates in Individual and/or Group Sessions - Attendance Attendance: 3-5 times per week - Activities Leisure Activities: Cards and Games - Socialization Level of Socialization: Initiates/interacts freely with care givers and peer - Assessment Assessment/Plan: Pt is agreeable to participate in 1:1 recreation therapy sessions following encouragement. Pt presents with expressive and receptive aphasia and participates in recognition and identification tasks utilizing spot- it cards and jodee cards to complete tasks. Pt requires mod A to complete tasks 2' decrease carryover and command following. Pt will continue to benefit from participating in recreation therapy sessions throughout stay on unit. Problems Currently Limiting Participation: expressive and receptive aphasia, R side weakness, decrease activity tolerance level, decrease leisure awareness level, flat affect Goals and Time Frame: Pt will be encouraged to participate in 1:1 and group recreaton therapy sessions 3-5x week to improve object and number recognition, command following, leisure awareness level, activity tolerance level, and overall mood state. - Provider Therapist: Cely Lucio Nutrition - Current Diet Current Diet/Supplement/Feedings: Regular diet ensure plus 8 ounces 3 per day - Appetite Percent Meal Consumed: 25-49% - Assessment/Goals/Time Frame Assessments/Goals/Time Frame: Pt at high nutritional risk. goal:1. Pt to consume 75-100% of meals. Follow-up due on 07/28/2018 - Provider Provider: Malinda Ledesma Case Management - Psychosocial Assessment Support Systems: Carlo Kilgore ([facility]) - [phone] Psychological Interventions/Needs: Patient is alert and oriented x2 and has an extensive physciatric and substance abuse history. Discharge Concerns: Patient will likely require GUY. Patient/Family Meeting: CM met with patient and rehab team. Intervention/Goal/Outcome: 1. Goal: Intermittient supervision 2. Plan: GUY 3. present list of GUY's to patient/family 4. send referrals to GUY's 5. continued emotional support - Discharge Plan Discharge Plan: Subacute care - Provider Provider: Sanjuana Gotti License Number: [id number] Rehabilitation Plan - Treatment Plan Treatment Plan: Physical Therapy, Occupational Therapy, Speech, Dietary, Patient/Family Education - Recommendation Recommendation: Physical Therapy, Occupational Therapy, Speech, Dietary - Discharge Plan Discharge to: Subacute
[2018-07-25] MEDS ORDERED: Potassium Chloride 20 mEq ER Tab PO ONE (12:59)
--- NOTE | 2018-07-25 13:56 | CP.PCM.PN ---
Subjective - Date & Time of Evaluation Date of Evaluation: 07/25/18 Time of Evaluation: 07:00 - Subjective Subjective: events noted rx to cont for cxr weakness persists iv rx reordered Objective - Vital Signs/Intake and Output Vital Signs (last 24 hours): Temp Pulse Resp BP Pulse Ox 96.4 F L 81 18 134/79 96 07/25/18 09:00 07/25/18 09:00 07/25/18 09:00 07/25/18 09:00 07/25/18 07:35 - Medications Medications: Current Medications Acetaminophen (Tylenol 325mg/10.15ml Ud) 650 mg PO Q4H PRN PRN Reason: Temperature Acetaminophen (Tylenol 650mg/20.3ml Solution Ud) 650 mg PO Q6 PRN PRN Reason: Headache Last Admin: 07/23/18 14:13 Dose: 650 mg Acyclovir (Zovirax) 800 mg PO TID [facility]; Protocol Last Admin: 07/25/18 12:18 Dose: 800 mg Albuterol/Ipratropium (Duoneb 3 Mg/0.5 Mg (3 Ml) Ud) 3 ml INH RQ4 [facility] Last Admin: 07/25/18 11:00 Dose: Not Given Amlodipine Besylate (Norvasc) 5 mg PO DAILY [facility] Last Admin: 07/25/18 08:28 Dose: 5 mg Atorvastatin Calcium (Lipitor) 20 mg PO DAILY@2200 [facility] Last Admin: 07/24/18 21:41 Dose: 20 mg Dolutegravir Sodium (Tivicay) 50 mg PO DAILY [facility]; Protocol Last Admin: 07/25/18 08:27 Dose: 50 mg Duloxetine HCl (Cymbalta) 30 mg PO BID [facility] Last Admin: 07/25/18 08:25 Dose: 30 mg Emtricitabine/Tenofovir (Truvada 200 Mg-300 Mg) 1 tab PO DAILY [facility]; Protocol Last Admin: 07/25/18 08:24 Dose: 1 tab Guaifenesin/Dextromethorphan (Mucinex-Dm 600-30 Mg) 2 tab PO BID [facility] Last Admin: 07/25/18 08:26 Dose: 2 tab Levofloxacin/Dextrose (Levaquin 750mg) 750 mg in 150 mls @ 100 mls/hr IVPB DAILY@0600 [facility] Last Admin: 07/25/18 05:48 Dose: 100 mls/hr Vancomycin HCl 1 gm/ Sodium (Chloride) 250 mls @ 166.667 mls/hr IVPB DAILY@1700 [facility] Last Admin: 07/24/18 16:17 Dose: 166.667 mls/hr Lactic Acid (Lac-Hydrin 12% Lotion (225 G)) 1 applic TOP Q12 [facility] Last Admin: 07/25/18 08:26 Dose: 1 applic Lactobacillus Acidophilus (Bacid Acidophilus) 1 cap PO BID [facility] Last Admin: 07/25/18 08:24 Dose: 1 cap Magnesium Oxide (Mag-Ox) 400 mg PO BID [facility] Last Admin: 07/25/18 08:26 Dose: 400 mg Methylprednisolone (Solu-Medrol) 40 mg IVP DAILY [facility] Last Admin: 07/25/18 08:30 Dose: 40 mg Pantoprazole Sodium (Protonix Ec Tab) 40 mg PO DAILY [facility] Last Admin: 07/25/18 08:29 Dose: 40 mg Quetiapine Fumarate (Seroquel) 200 mg PO HS [facility] Last Admin: 07/24/18 21:41 Dose: 200 mg Senna/Docusate Sodium (Senokot S 50 Mg-8.6 Mg) 2 tab PO BID [facility] Last Admin: 07/25/18 08:29 Dose: 2 tab Trimethoprim/Sulfamethoxazole (Bactrim Ds Tab) 1 tab PO DAILY [facility]; Protocol Last Admin: 07/25/18 08:25 Dose: 1 tab - Labs Labs: 07/24/18 05:35 07/24/18 05:35 Assessment and Plan (1) Aspiration pneumonia Status: Acute (2) COPD (chronic obstructive pulmonary disease) Status: Acute (3) Cerebrovascular accident (CVA) with right hemiparesis Status: Acute (4) Depression Status: Acute (5) HIV (human immunodeficiency virus infection) Status: Acute (6) Rhabdomyolysis Status: Acute
--- NOTE | 2018-07-25 16:07 | CP.PCM.PN ---
Subjective - Date & Time of Evaluation Date of Evaluation: 07/25/18 Time of Evaluation: 13:20 - Subjective Subjective: Patient seen and examined. Denied any complaint Objective - Vital Signs/Intake and Output Vital Signs (last 24 hours): Temp Pulse Resp BP Pulse Ox 96.4 F L 81 18 134/79 96 07/25/18 09:00 07/25/18 09:00 07/25/18 09:00 07/25/18 09:00 07/25/18 07:35 - Medications Medications: Current Medications Acetaminophen (Tylenol 325mg/10.15ml Ud) 650 mg PO Q4H PRN PRN Reason: Temperature Acetaminophen (Tylenol 650mg/20.3ml Solution Ud) 650 mg PO Q6 PRN PRN Reason: Headache Last Admin: 07/23/18 14:13 Dose: 650 mg Acyclovir (Zovirax) 800 mg PO TID [facility]; Protocol Last Admin: 07/25/18 12:18 Dose: 800 mg Albuterol/Ipratropium (Duoneb 3 Mg/0.5 Mg (3 Ml) Ud) 3 ml INH RQ4 [facility] Last Admin: 07/25/18 15:37 Dose: Not Given Amlodipine Besylate (Norvasc) 5 mg PO DAILY [facility] Last Admin: 07/25/18 08:28 Dose: 5 mg Atorvastatin Calcium (Lipitor) 20 mg PO DAILY@2200 [facility] Last Admin: 07/24/18 21:41 Dose: 20 mg Dolutegravir Sodium (Tivicay) 50 mg PO DAILY [facility]; Protocol Last Admin: 07/25/18 08:27 Dose: 50 mg Duloxetine HCl (Cymbalta) 30 mg PO BID [facility] Last Admin: 07/25/18 08:25 Dose: 30 mg Emtricitabine/Tenofovir (Truvada 200 Mg-300 Mg) 1 tab PO DAILY [facility]; Protocol Last Admin: 07/25/18 08:24 Dose: 1 tab Guaifenesin/Dextromethorphan (Mucinex-Dm 600-30 Mg) 2 tab PO BID [facility] Last Admin: 07/25/18 08:26 Dose: 2 tab Levofloxacin/Dextrose (Levaquin 750mg) 750 mg in 150 mls @ 100 mls/hr IVPB DAILY@0600 [facility] Last Admin: 07/25/18 05:48 Dose: 100 mls/hr Vancomycin HCl 1 gm/ Sodium (Chloride) 250 mls @ 166.667 mls/hr IVPB DAILY@1700 [facility] Last Admin: 07/24/18 16:17 Dose: 166.667 mls/hr Lactic Acid (Lac-Hydrin 12% Lotion (225 G)) 1 applic TOP Q12 [facility] Last Admin: 07/25/18 08:26 Dose: 1 applic Lactobacillus Acidophilus (Bacid Acidophilus) 1 cap PO BID [facility] Last Admin: 07/25/18 08:24 Dose: 1 cap Magnesium Oxide (Mag-Ox) 400 mg PO BID [facility] Last Admin: 07/25/18 08:26 Dose: 400 mg Methylprednisolone (Solu-Medrol) 40 mg IVP DAILY [facility] Last Admin: 07/25/18 08:30 Dose: 40 mg Pantoprazole Sodium (Protonix Ec Tab) 40 mg PO DAILY [facility] Last Admin: 07/25/18 08:29 Dose: 40 mg Quetiapine Fumarate (Seroquel) 200 mg PO HS [facility] Last Admin: 07/24/18 21:41 Dose: 200 mg Senna/Docusate Sodium (Senokot S 50 Mg-8.6 Mg) 2 tab PO BID [facility] Last Admin: 07/25/18 08:29 Dose: 2 tab Trimethoprim/Sulfamethoxazole (Bactrim Ds Tab) 1 tab PO DAILY [facility]; Protocol Last Admin: 07/25/18 08:25 Dose: 1 tab - Labs Labs: 07/24/18 05:35 07/24/18 05:35 - Constitutional Appears: No Acute Distress - Head Exam Head Exam: ATRAUMATIC - Eye Exam Eye Exam: absent: Scleral icterus - ENT Exam ENT Exam: Mucous Membranes Moist - Neck Exam Neck Exam: absent: Meningismus - Respiratory Exam Respiratory Exam: absent: Rales, Rhonchi, Wheezes, Respiratory Distress - Cardiovascular Exam Cardiovascular Exam: REGULAR RHYTHM, +S1, +S2 - GI/Abdominal Exam GI & Abdominal Exam: Soft. absent: Tenderness - Rectal Exam Rectal Exam: Deferred - Neurological Exam Neurological Exam: Alert - Psychiatric Exam Psychiatric exam: Flat Affect - Skin Skin Exam: Dry, Intact Assessment and Plan - Assessment and Plan (Free Text) Assessment: 58 yo female with history of HIV, drug abuse and Bipolar DO presented with AMS and was found to have acute ischemic stroke with right sided weakness. Patient also developed sepsis secondary to pneumonia and was treated with Levaquin and Vancomycin. Patient also turned positive for flu and completed 5 day course of Tamiflu. 1. Acute Ischemic Stroke with Right Hemiparesis continue BP management and statin continue hold on Lovenox and ASA as most recent CT Head and MRI showed hemorrhagic conversion continue PT/OT 2. Community Acquired Pneumonia completed 14 day course of IV Levaquin still on IV Vancomycin 1gm IV daily (started on 07/15/2018) Prednisone 40mg PO daily Duoneb Q4H Mucinex-DM 600-30 mg 2 tab PO BID 3. HIV HAART resumed (Tivicay 50mg daily and Truvada 200mg-300mg daily) CD4 = 135 Screen for opportunistic infections Acyclovir 500mg Q12H and Bactrim 20 ml Q12H for prophylaxis ID consult, Dr Velazco 4. Chronic hepatitis C stable ID consult, Dr Velazco 5. Bipolar Disorder/Depression/Paranoia/Personality Disorder continue Cymbalta 30mg BID and Seroquel 200 mg PO HS [facility] 6. DVT prophylaxis venodyne boots while in bed
[2018-07-26] MEDS: Albuterol-Ipratrop 3 mg / 0.5 (3 ml) UD INH SCH ×6 (00:23→19:27)
[2018-07-26] MEDS: Lactobacillus Acidophilus 500 MU Cap PO SCH ×2 (08:13→16:12)
[2018-07-26] MEDS: Tmp-Smz 800 mg-160 mg DS Tab PO SCH (08:13)
[2018-07-26] MEDS: Magnesium Oxide 400 mg Tab UD PO SCH ×2 (08:15→16:12)
[2018-07-26] MEDS: guaiFENesin-DM 600-30 mg ER Tab PO SCH ×2 (08:17→16:12)
[2018-07-26] MEDS: Docusate-Senna 50 mg-8.6 mg Tab PO SCH ×2 (08:19→16:13)
[2018-07-26] MEDS: Pantoprazole 40 mg EC Tab PO SCH (08:19)
[2018-07-26] MEDS: Emtricitabine-Tenofovir 200 mg-300 mg Tab PO SCH (08:21)
--- NOTE | 2018-07-26 10:04 | CP.PCM.PN ---
Subjective - Date & Time of Evaluation Date of Evaluation: 07/26/18 Time of Evaluation: 10:04 - Subjective Subjective: NO NEW FINDINGS PT/OT PROGRESSING WELL WILL CONTINUE CURRENT RX WILL FOLLOW Objective - Vital Signs/Intake and Output Vital Signs (last 24 hours): Temp Pulse Resp BP Pulse Ox 97.7 F 74 18 120/68 94 L 07/26/18 07:26 07/26/18 08:17 07/26/18 07:26 07/26/18 08:17 07/26/18 07:26 - Medications Medications: Current Medications Acetaminophen (Tylenol 325mg/10.15ml Ud) 650 mg PO Q4H PRN PRN Reason: Temperature Acetaminophen (Tylenol 650mg/20.3ml Solution Ud) 650 mg PO Q6 PRN PRN Reason: Headache Last Admin: 07/23/18 14:13 Dose: 650 mg Acyclovir (Zovirax) 800 mg PO TID [facility]; Protocol Last Admin: 07/26/18 08:21 Dose: 800 mg Albuterol/Ipratropium (Duoneb 3 Mg/0.5 Mg (3 Ml) Ud) 3 ml INH RQ4 [facility] Last Admin: 07/26/18 07:35 Dose: Not Given Amlodipine Besylate (Norvasc) 5 mg PO DAILY [facility] Last Admin: 07/26/18 08:17 Dose: 5 mg Atorvastatin Calcium (Lipitor) 20 mg PO DAILY@2200 [facility] Last Admin: 07/25/18 21:16 Dose: 20 mg Dolutegravir Sodium (Tivicay) 50 mg PO DAILY [facility]; Protocol Last Admin: 07/26/18 08:19 Dose: 50 mg Duloxetine HCl (Cymbalta) 30 mg PO BID [facility] Last Admin: 07/26/18 08:15 Dose: 30 mg Emtricitabine/Tenofovir (Truvada 200 Mg-300 Mg) 1 tab PO DAILY [facility]; Protocol Last Admin: 07/26/18 08:21 Dose: 1 tab Guaifenesin/Dextromethorphan (Mucinex-Dm 600-30 Mg) 2 tab PO BID [facility] Last Admin: 07/26/18 08:17 Dose: 2 tab Vancomycin HCl 1 gm/ Sodium (Chloride) 250 mls @ 166.667 mls/hr IVPB DAILY@1700 [facility] Last Admin: 07/25/18 17:03 Dose: 166.667 mls/hr Lactic Acid (Lac-Hydrin 12% Lotion (225 G)) 1 applic TOP Q12 [facility] Last Admin: 07/26/18 08:15 Dose: 1 applic Lactobacillus Acidophilus (Bacid Acidophilus) 1 cap PO BID [facility] Last Admin: 07/26/18 08:13 Dose: 1 cap Magnesium Oxide (Mag-Ox) 400 mg PO BID [facility] Last Admin: 07/26/18 08:15 Dose: 400 mg Pantoprazole Sodium (Protonix Ec Tab) 40 mg PO DAILY [facility] Last Admin: 07/26/18 08:19 Dose: 40 mg Prednisone (Prednisone Tab) 40 mg PO DAILY [facility] Last Admin: 07/26/18 08:18 Dose: 40 mg Quetiapine Fumarate (Seroquel) 200 mg PO HS [facility] Last Admin: 07/25/18 21:16 Dose: 200 mg Senna/Docusate Sodium (Senokot S 50 Mg-8.6 Mg) 2 tab PO BID [facility] Last Admin: 07/26/18 08:19 Dose: 2 tab Trimethoprim/Sulfamethoxazole (Bactrim Ds Tab) 1 tab PO DAILY [facility]; Protocol Last Admin: 07/26/18 08:13 Dose: 1 tab - Labs Labs: 07/24/18 05:35 07/24/18 05:35
[2018-07-27] MEDS: Albuterol-Ipratrop 3 mg / 0.5 (3 ml) UD INH SCH ×7 (00:16→23:33)
[2018-07-27] MEDS: Emtricitabine-Tenofovir 200 mg-300 mg Tab PO SCH (08:17)
[2018-07-27] MEDS: Lactobacillus Acidophilus 500 MU Cap PO SCH ×2 (08:17→17:12)
[2018-07-27] MEDS: Tmp-Smz 800 mg-160 mg DS Tab PO SCH (08:18)
[2018-07-27] MEDS: Magnesium Oxide 400 mg Tab UD PO SCH ×2 (08:18→17:13)
[2018-07-27] MEDS: guaiFENesin-DM 600-30 mg ER Tab PO SCH ×2 (08:18→17:15)
[2018-07-27] MEDS: Pantoprazole 40 mg EC Tab PO SCH (08:19)
[2018-07-27] MEDS: Docusate-Senna 50 mg-8.6 mg Tab PO SCH ×2 (08:20→17:13)
--- NOTE | 2018-07-27 10:34 | CP.PCM.PN ---
Subjective - Date & Time of Evaluation Date of Evaluation: 07/27/18 Time of Evaluation: 10:34 - Subjective Subjective: AWAKE AND ALERT R HEMIPARESES PERSISTS NO COUGH/CHEST PAINS/SOB Objective - Vital Signs/Intake and Output Vital Signs (last 24 hours): Temp Pulse Resp BP Pulse Ox 97.7 F 70 20 125/80 96 07/27/18 07:31 07/27/18 08:19 07/27/18 07:31 07/27/18 08:19 07/27/18 07:31 - Medications Medications: Current Medications Acetaminophen (Tylenol 325mg/10.15ml Ud) 650 mg PO Q4H PRN PRN Reason: Temperature Acetaminophen (Tylenol 650mg/20.3ml Solution Ud) 650 mg PO Q6 PRN PRN Reason: Headache Last Admin: 07/23/18 14:13 Dose: 650 mg Acyclovir (Zovirax) 800 mg PO TID [facility]; Protocol Last Admin: 07/27/18 08:17 Dose: 800 mg Albuterol/Ipratropium (Duoneb 3 Mg/0.5 Mg (3 Ml) Ud) 3 ml INH RQ4 [facility] Last Admin: 07/27/18 07:46 Dose: 3 ml Amlodipine Besylate (Norvasc) 5 mg PO DAILY [facility] Last Admin: 07/27/18 08:19 Dose: 5 mg Atorvastatin Calcium (Lipitor) 20 mg PO DAILY@2200 [facility] Last Admin: 07/26/18 21:10 Dose: 20 mg Dolutegravir Sodium (Tivicay) 50 mg PO DAILY [facility]; Protocol Last Admin: 07/27/18 08:17 Dose: 50 mg Duloxetine HCl (Cymbalta) 30 mg PO BID [facility] Last Admin: 07/27/18 08:18 Dose: 30 mg Emtricitabine/Tenofovir (Truvada 200 Mg-300 Mg) 1 tab PO DAILY [facility]; Protocol Last Admin: 07/27/18 08:17 Dose: 1 tab Guaifenesin/Dextromethorphan (Mucinex-Dm 600-30 Mg) 2 tab PO BID [facility] Last Admin: 07/27/18 08:18 Dose: 2 tab Vancomycin HCl 1 gm/ Sodium (Chloride) 250 mls @ 166.667 mls/hr IVPB DAILY@1700 [facility] Last Admin: 07/26/18 16:14 Dose: 166.667 mls/hr Lactic Acid (Lac-Hydrin 12% Lotion (225 G)) 1 applic TOP Q12 [facility] Last Admin: 07/27/18 08:18 Dose: 1 applic Lactobacillus Acidophilus (Bacid Acidophilus) 1 cap PO BID [facility] Last Admin: 07/27/18 08:17 Dose: 1 cap Magnesium Oxide (Mag-Ox) 400 mg PO BID [facility] Last Admin: 07/27/18 08:18 Dose: 400 mg Pantoprazole Sodium (Protonix Ec Tab) 40 mg PO DAILY [facility] Last Admin: 07/27/18 08:19 Dose: 40 mg Prednisone (Prednisone Tab) 40 mg PO DAILY [facility] Last Admin: 07/27/18 08:21 Dose: 40 mg Quetiapine Fumarate (Seroquel) 200 mg PO HS [facility] Last Admin: 07/26/18 21:10 Dose: 200 mg Senna/Docusate Sodium (Senokot S 50 Mg-8.6 Mg) 2 tab PO BID [facility] Last Admin: 07/27/18 08:20 Dose: 2 tab Trimethoprim/Sulfamethoxazole (Bactrim Ds Tab) 1 tab PO DAILY [facility]; Protocol Last Admin: 07/27/18 08:18 Dose: 1 tab - Labs Labs: 07/24/18 05:35 07/24/18 05:35 - Constitutional Appears: No Acute Distress - Head Exam Head Exam: ATRAUMATIC, NORMAL INSPECTION, NORMOCEPHALIC - Eye Exam Eye Exam: EOMI, Normal appearance, PERRL Pupil Exam: NORMAL ACCOMODATION, PERRL - ENT Exam ENT Exam: Mucous Membranes Moist, Normal Exam - Neck Exam Neck Exam: Full ROM, Normal Inspection. absent: Lymphadenopathy - Respiratory Exam Respiratory Exam: Clear to Ausculation Bilateral, NORMAL BREATHING PATTERN - Cardiovascular Exam Cardiovascular Exam: REGULAR RHYTHM, +S1, +S2. absent: Murmur - GI/Abdominal Exam GI & Abdominal Exam: Soft, Normal Bowel Sounds. absent: Tenderness - Rectal Exam Rectal Exam: NORMAL INSPECTION - Extremities Exam Extremities Exam: Full ROM, Normal Capillary Refill, Normal Inspection. absent: Joint Swelling, Pedal Edema - Back Exam Back Exam: NORMAL INSPECTION - Neurological Exam Neurological Exam: Alert, Awake, CN II-XII Intact, Oriented x3 Additional comments: R HEMIPARESES - Psychiatric Exam Psychiatric exam: Normal Affect, Normal Mood - Skin Skin Exam: Dry, Intact, Normal Color, Warm Assessment and Plan - Assessment and Plan (Free Text) Assessment: CVA PNEUMONIA HIV DZ Plan: CONTINUE IV ANTIBIOTIC RX REPEAT CXR
--- NOTE | 2018-07-27 12:16 | CT ---
Date of service: 07/27/2018 PROCEDURE: CT HEAD WITHOUT CONTRAST. HISTORY: re-evaluate hemorrhagic conversion, recent CVA COMPARISON: None available. TECHNIQUE: Axial computed tomography images were obtained through the head/brain without intravenous contrast. Radiation dose: Total exam DLP = 1567.74 mGy-cm. This CT exam was performed using one or more of the following dose reduction techniques: Automated exposure control, adjustment of the mA and/or kV according to patient size, and/or use of iterative reconstruction technique. FINDINGS: Limitations: Extensive motion artifact did examination. Multiple series were obtained to overcome this problem which were unsuccessful. HEMORRHAGE: Diminishing trace hemorrhage left external capsule. BRAIN: No gross intracranial pathological findings evident in general. Artifacts obscure evaluation of the cerebrum and cerebellum significantly. Mild diffuse cerebral atrophy is identified. VENTRICLES: Unremarkable. No hydrocephalus. CALVARIUM: Unremarkable. PARANASAL SINUSES: Multifocal ethmoid and right greater than left sphenoid sinusitis identified well as bilateral maxillary sinus disease. MASTOID AIR CELLS: Unremarkable as visualized. No inflammatory changes. OTHER FINDINGS: None. IMPRESSION: Limited examination due to extensive motion artifacts once again. No gross acute intracranial findings appreciated in the interval. Diffuse cerebral atrophy reiterated. Diminishing trace hemorrhage at the left external capsule noted clearly diminished in density indicating chronic state.
--- NOTE | 2018-07-27 12:45 | CP.PCM.PN ---
Subjective - Date & Time of Evaluation Date of Evaluation: 07/27/18 Time of Evaluation: 12:44 - Subjective Subjective: Neurology Follow-Up Note: Mrs. Kilgore was evaluated this afternoon on the acute rehab unit during physical therapy. She is doing well, participating in therapy. She denies any complaints; no h/a, dizziness, visual changes, chest pain, sob, n/v/d. Chart reviewed; discussed pt with primary RN. Objective - Vital Signs/Intake and Output Vital Signs (last 24 hours): Temp Pulse Resp BP Pulse Ox 97.7 F 70 20 125/80 96 07/27/18 07:31 07/27/18 08:19 07/27/18 07:31 07/27/18 08:19 07/27/18 07:31 - Medications Medications: Current Medications Acetaminophen (Tylenol 325mg/10.15ml Ud) 650 mg PO Q4H PRN PRN Reason: Temperature Acetaminophen (Tylenol 650mg/20.3ml Solution Ud) 650 mg PO Q6 PRN PRN Reason: Headache Last Admin: 07/23/18 14:13 Dose: 650 mg Acyclovir (Zovirax) 800 mg PO TID [facility]; Protocol Last Admin: 07/27/18 08:17 Dose: 800 mg Albuterol/Ipratropium (Duoneb 3 Mg/0.5 Mg (3 Ml) Ud) 3 ml INH RQ4 [facility] Last Admin: 07/27/18 11:45 Dose: Not Given Amlodipine Besylate (Norvasc) 5 mg PO DAILY [facility] Last Admin: 07/27/18 08:19 Dose: 5 mg Atorvastatin Calcium (Lipitor) 20 mg PO DAILY@2200 [facility] Last Admin: 07/26/18 21:10 Dose: 20 mg Dolutegravir Sodium (Tivicay) 50 mg PO DAILY [facility]; Protocol Last Admin: 07/27/18 08:17 Dose: 50 mg Duloxetine HCl (Cymbalta) 30 mg PO BID [facility] Last Admin: 07/27/18 08:18 Dose: 30 mg Emtricitabine/Tenofovir (Truvada 200 Mg-300 Mg) 1 tab PO DAILY [facility]; Protocol Last Admin: 07/27/18 08:17 Dose: 1 tab Guaifenesin/Dextromethorphan (Mucinex-Dm 600-30 Mg) 2 tab PO BID [facility] Last Admin: 07/27/18 08:18 Dose: 2 tab Vancomycin HCl 1 gm/ Sodium (Chloride) 250 mls @ 166.667 mls/hr IVPB DAILY@1700 [facility] Last Admin: 07/26/18 16:14 Dose: 166.667 mls/hr Lactic Acid (Lac-Hydrin 12% Lotion (225 G)) 1 applic TOP Q12 [facility] Last Admin: 07/27/18 08:18 Dose: 1 applic Lactobacillus Acidophilus (Bacid Acidophilus) 1 cap PO BID [facility] Last Admin: 07/27/18 08:17 Dose: 1 cap Magnesium Oxide (Mag-Ox) 400 mg PO BID [facility] Last Admin: 07/27/18 08:18 Dose: 400 mg Pantoprazole Sodium (Protonix Ec Tab) 40 mg PO DAILY [facility] Last Admin: 07/27/18 08:19 Dose: 40 mg Prednisone (Prednisone Tab) 40 mg PO DAILY [facility] Last Admin: 07/27/18 08:21 Dose: 40 mg Quetiapine Fumarate (Seroquel) 200 mg PO HS [facility] Last Admin: 07/26/18 21:10 Dose: 200 mg Senna/Docusate Sodium (Senokot S 50 Mg-8.6 Mg) 2 tab PO BID [facility] Last Admin: 07/27/18 08:20 Dose: 2 tab Trimethoprim/Sulfamethoxazole (Bactrim Ds Tab) 1 tab PO DAILY [facility]; Protocol Last Admin: 07/27/18 08:18 Dose: 1 tab - Labs Labs: 07/24/18 05:35 07/24/18 05:35 - Constitutional Appears: Well, Non-toxic, No Acute Distress - Head Exam Head Exam: ATRAUMATIC, NORMAL INSPECTION, NORMOCEPHALIC - Eye Exam Eye Exam: EOMI, Normal appearance Pupil Exam: NORMAL ACCOMODATION, PERRL - ENT Exam ENT Exam: Mucous Membranes Moist - Neck Exam Neck Exam: Full ROM, Normal Inspection - Respiratory Exam Respiratory Exam: NORMAL BREATHING PATTERN - Extremities Exam Extremities Exam: absent: Calf Tenderness, Full ROM, Pedal Edema Additional comments: right hemiplegia - Back Exam Back Exam: Full ROM - Neurological Exam Neurological Exam: Alert, Awake, CN II-XII Intact Neuro motor strength exam: Left Upper Extremity: 5, Right Upper Extremity: 0, Left Lower Extremity: 5, Right Lower Extremity: 0 Additional comments: Although improving, pt is still aphasic and has difficulty comprehending what is told to her; she is also repetitive in her verbiage at times and responds appropriately other times. Still has slight right sided facial droop Strength to LUE and LLE 5/5 Strength to RUE and RLE 0/5 Reflexes to lle brisk; unable to assess rle 2/2 pt connected to electrical stimulation machine during therapy. Sensation intact b/l No tremors, though per PT, pt has clonus to rle after her electrical stimulation therapy. - Psychiatric Exam Psychiatric exam: Normal Affect, Normal Mood - Skin Skin Exam: Normal Color Assessment and Plan (1) CVA (cerebral vascular accident) Assessment & Plan: Imaging reviewed: -CT Head (07/27/18): Limited examination due to extensive motion artifacts once again. No gross acute intracranial findings appreciated in the interval. Diffuse cerebral atrophy reiterated. Diminishing trace hemorrhage at the left external capsule noted clearly diminished in density indicating chronic state. -We can restart ASA 81 mg PO daily. -We will consider a repeat CT Head if there is a suspicion for increased hemorrhage and/or acute changes in pt's mental status. -Continue statin. -Continue rehab. -Continue treatment and management of other acute issues---pt still being treated for pneumonia by primary team. -Notify neuro team of any acute changes in pt's condition. Imaging and case discussed with Dr. Jamison. Status: Acute
--- NOTE | 2018-07-27 14:14 | CP.PCM.PN ---
Subjective - Date & Time of Evaluation Date of Evaluation: 07/27/18 Time of Evaluation: 10:40 - Subjective Subjective: Patient seen and examined. Complained of unable to sleep at night. Objective - Vital Signs/Intake and Output Vital Signs (last 24 hours): Temp Pulse Resp BP Pulse Ox 97.7 F 70 20 125/80 96 07/27/18 07:31 07/27/18 08:19 07/27/18 07:31 07/27/18 08:19 07/27/18 07:31 - Medications Medications: Current Medications Acetaminophen (Tylenol 325mg/10.15ml Ud) 650 mg PO Q4H PRN PRN Reason: Temperature Acetaminophen (Tylenol 650mg/20.3ml Solution Ud) 650 mg PO Q6 PRN PRN Reason: Headache Last Admin: 07/23/18 14:13 Dose: 650 mg Acyclovir (Zovirax) 800 mg PO TID [facility]; Protocol Last Admin: 07/27/18 08:17 Dose: 800 mg Albuterol/Ipratropium (Duoneb 3 Mg/0.5 Mg (3 Ml) Ud) 3 ml INH RQ4 [facility] Last Admin: 07/27/18 11:45 Dose: Not Given Amlodipine Besylate (Norvasc) 5 mg PO DAILY [facility] Last Admin: 07/27/18 08:19 Dose: 5 mg Aspirin (Ecotrin) 81 mg PO DAILY [facility] Atorvastatin Calcium (Lipitor) 20 mg PO DAILY@2200 [facility] Last Admin: 07/26/18 21:10 Dose: 20 mg Dolutegravir Sodium (Tivicay) 50 mg PO DAILY [facility]; Protocol Last Admin: 07/27/18 08:17 Dose: 50 mg Duloxetine HCl (Cymbalta) 30 mg PO BID [facility] Last Admin: 07/27/18 08:18 Dose: 30 mg Emtricitabine/Tenofovir (Truvada 200 Mg-300 Mg) 1 tab PO DAILY [facility]; Protocol Last Admin: 07/27/18 08:17 Dose: 1 tab Guaifenesin/Dextromethorphan (Mucinex-Dm 600-30 Mg) 2 tab PO BID [facility] Last Admin: 07/27/18 08:18 Dose: 2 tab Vancomycin HCl 1 gm/ Sodium (Chloride) 250 mls @ 166.667 mls/hr IVPB DAILY@1700 [facility] Last Admin: 07/26/18 16:14 Dose: 166.667 mls/hr Lactic Acid (Lac-Hydrin 12% Lotion (225 G)) 1 applic TOP Q12 [facility] Last Admin: 07/27/18 08:18 Dose: 1 applic Lactobacillus Acidophilus (Bacid Acidophilus) 1 cap PO BID [facility] Last Admin: 07/27/18 08:17 Dose: 1 cap Magnesium Oxide (Mag-Ox) 400 mg PO BID [facility] Last Admin: 07/27/18 08:18 Dose: 400 mg Pantoprazole Sodium (Protonix Ec Tab) 40 mg PO DAILY [facility] Last Admin: 07/27/18 08:19 Dose: 40 mg Prednisone (Prednisone Tab) 40 mg PO DAILY [facility] Last Admin: 07/27/18 08:21 Dose: 40 mg Quetiapine Fumarate (Seroquel) 200 mg PO HS [facility] Last Admin: 07/26/18 21:10 Dose: 200 mg Senna/Docusate Sodium (Senokot S 50 Mg-8.6 Mg) 2 tab PO BID [facility] Last Admin: 07/27/18 08:20 Dose: 2 tab Trimethoprim/Sulfamethoxazole (Bactrim Ds Tab) 1 tab PO DAILY [facility]; Protocol Last Admin: 07/27/18 08:18 Dose: 1 tab - Labs Labs: 07/24/18 05:35 07/24/18 05:35 - Constitutional Appears: No Acute Distress - Head Exam Head Exam: ATRAUMATIC - Eye Exam Eye Exam: absent: Scleral icterus - ENT Exam ENT Exam: Mucous Membranes Moist - Neck Exam Neck Exam: absent: Meningismus - Respiratory Exam Respiratory Exam: absent: Rales, Rhonchi, Wheezes, Respiratory Distress - Cardiovascular Exam Cardiovascular Exam: REGULAR RHYTHM, +S1, +S2 - GI/Abdominal Exam GI & Abdominal Exam: Soft. absent: Tenderness - Rectal Exam Rectal Exam: Deferred - Neurological Exam Neurological Exam: Alert, Oriented x3 - Psychiatric Exam Psychiatric exam: Normal Affect - Skin Skin Exam: Dry, Intact Assessment and Plan - Assessment and Plan (Free Text) Assessment: 58 yo female with history of HIV, drug abuse and Bipolar DO presented with AMS and was found to have acute ischemic stroke with right sided weakness. Patient also found to have sepsis secondary to pneumonia and flu. She was treated with Levaquin and Vancomycin and Tamiflu. 1. Acute Ischemic Stroke with Right Hemiparesis continue BP management and statin continue hold on Lovenox and ASA because of hemorrhagic conversion continue PT/OT 2. Community Acquired Pneumonia completed 14 day course of IV Levaquin continue Vancomycin for a total of 2 weeks (started on 07/15/2018) Prednisone 40mg PO daily Duoneb Q4H Mucinex-DM 600-30 mg 2 tab PO BID 3. HIV HAART resumed (Tivicay 50mg daily and Truvada 200mg-300mg daily) CD4 = 135 Screen for opportunistic infections Acyclovir 500mg Q12H and Bactrim 20 ml Q12H for prophylaxis ID consult, Dr Velazco 4. Chronic hepatitis C stable 5. Bipolar Disorder/Depression/Paranoia/Personality Disorder continue Cymbalta 30mg BID and Seroquel 200 mg PO HS [facility] 6. DVT prophylaxis venodyne boots while in bed
--- NOTE | 2018-07-27 14:20 | CP.PCM.PN ---
Subjective - Date & Time of Evaluation Date of Evaluation: 07/27/18 Time of Evaluation: 09:00 - Subjective Subjective: remains afebrile weakness right side persists IV antibiotics to cont as per Dr Stahl will review CXR and discuss with him Objective - Vital Signs/Intake and Output Vital Signs (last 24 hours): Temp Pulse Resp BP Pulse Ox 97.7 F 70 20 125/80 96 07/27/18 07:31 07/27/18 08:19 07/27/18 07:31 07/27/18 08:19 07/27/18 07:31 - Medications Medications: Current Medications Acetaminophen (Tylenol 325mg/10.15ml Ud) 650 mg PO Q4H PRN PRN Reason: Temperature Acetaminophen (Tylenol 650mg/20.3ml Solution Ud) 650 mg PO Q6 PRN PRN Reason: Headache Last Admin: 07/23/18 14:13 Dose: 650 mg Acyclovir (Zovirax) 800 mg PO TID [facility]; Protocol Last Admin: 07/27/18 08:17 Dose: 800 mg Albuterol/Ipratropium (Duoneb 3 Mg/0.5 Mg (3 Ml) Ud) 3 ml INH RQ4 [facility] Last Admin: 07/27/18 11:45 Dose: Not Given Amlodipine Besylate (Norvasc) 5 mg PO DAILY [facility] Last Admin: 07/27/18 08:19 Dose: 5 mg Aspirin (Ecotrin) 81 mg PO DAILY [facility] Atorvastatin Calcium (Lipitor) 20 mg PO DAILY@2200 [facility] Last Admin: 07/26/18 21:10 Dose: 20 mg Dolutegravir Sodium (Tivicay) 50 mg PO DAILY [facility]; Protocol Last Admin: 07/27/18 08:17 Dose: 50 mg Duloxetine HCl (Cymbalta) 30 mg PO BID [facility] Last Admin: 07/27/18 08:18 Dose: 30 mg Emtricitabine/Tenofovir (Truvada 200 Mg-300 Mg) 1 tab PO DAILY [facility]; Protocol Last Admin: 07/27/18 08:17 Dose: 1 tab Guaifenesin/Dextromethorphan (Mucinex-Dm 600-30 Mg) 2 tab PO BID [facility] Last Admin: 07/27/18 08:18 Dose: 2 tab Vancomycin HCl 1 gm/ Sodium (Chloride) 250 mls @ 166.667 mls/hr IVPB DAILY@1700 [facility] Last Admin: 07/26/18 16:14 Dose: 166.667 mls/hr Lactic Acid (Lac-Hydrin 12% Lotion (225 G)) 1 applic TOP Q12 [facility] Last Admin: 07/27/18 08:18 Dose: 1 applic Lactobacillus Acidophilus (Bacid Acidophilus) 1 cap PO BID [facility] Last Admin: 07/27/18 08:17 Dose: 1 cap Magnesium Oxide (Mag-Ox) 400 mg PO BID [facility] Last Admin: 07/27/18 08:18 Dose: 400 mg Pantoprazole Sodium (Protonix Ec Tab) 40 mg PO DAILY [facility] Last Admin: 07/27/18 08:19 Dose: 40 mg Prednisone (Prednisone Tab) 40 mg PO DAILY [facility] Last Admin: 07/27/18 08:21 Dose: 40 mg Quetiapine Fumarate (Seroquel) 200 mg PO HS [facility] Last Admin: 07/26/18 21:10 Dose: 200 mg Senna/Docusate Sodium (Senokot S 50 Mg-8.6 Mg) 2 tab PO BID [facility] Last Admin: 07/27/18 08:20 Dose: 2 tab Trimethoprim/Sulfamethoxazole (Bactrim Ds Tab) 1 tab PO DAILY [facility]; Protocol Last Admin: 07/27/18 08:18 Dose: 1 tab - Labs Labs: 07/24/18 05:35 07/24/18 05:35 - Constitutional Appears: Non-toxic, Chronically Ill - Head Exam Head Exam: NORMOCEPHALIC - Eye Exam Eye Exam: absent: Scleral icterus - ENT Exam ENT Exam: Mucous Membranes Dry - Neck Exam Neck Exam: absent: Lymphadenopathy - Respiratory Exam Respiratory Exam: NORMAL BREATHING PATTERN - Cardiovascular Exam Cardiovascular Exam: REGULAR RHYTHM, +S1, +S2 - GI/Abdominal Exam GI & Abdominal Exam: Distended - Rectal Exam Rectal Exam: Deferred - Exam Exam: NORMAL INSPECTION - Extremities Exam Extremities Exam: absent: Pedal Edema - Back Exam Back Exam: absent: CVA tenderness (L), CVA tenderness (R) - Neurological Exam Neurological Exam: Alert, Awake Neuro motor strength exam: Left Upper Extremity: 4, Right Upper Extremity: 0, Left Lower Extremity: 4, Right Lower Extremity: 0 - Psychiatric Exam Psychiatric exam: Depressed, Flat Affect - Skin Skin Exam: Dry Assessment and Plan (1) Aspiration pneumonia Status: Acute (2) COPD (chronic obstructive pulmonary disease) Status: Acute (3) Cerebrovascular accident (CVA) with right hemiparesis Status: Acute (4) Depression Status: Acute (5) HIV (human immunodeficiency virus infection) Status: Acute (6) Rhabdomyolysis Status: Acute - Assessment and Plan (Free Text) Assessment: remains afebrile weakness right side persists IV antibiotics to cont as per Dr Stahl will review CXR and discuss with him
--- NOTE | 2018-07-27 15:04 | RAD ---
Date of service: 07/27/2018 HISTORY: History of pneumonia. COMPARISON: 07/24/2018. TECHNIQUE: Chest PA and lateral FINDINGS: LUNGS: Resolution right lower lobe infiltrate/pneumonia. PLEURA: No significant pleural effusion identified. No pneumothorax apparent. CARDIOVASCULAR: No aortic atherosclerotic calcification present. No radiographic findings to suggest acute or significant cardiovascular disease. No pulmonary vascular congestion. OSSEOUS STRUCTURES: No significant abnormalities. VISUALIZED UPPER ABDOMEN: Normal. OTHER FINDINGS: None. IMPRESSION: No active disease. Resolution right lower lobe infiltrate seen on prior study 07/24/2018.
[2018-07-28] MEDS ORDERED: Acetaminophen 325 MG/10.15 ML PO PRN (03:30)
[2018-07-28] MEDS: Albuterol-Ipratrop 3 mg / 0.5 (3 ml) UD INH SCH ×6 (04:50→23:18)
[2018-07-28 07:46] LABS: BASO % 0.4 % (0.0-2.0); EOS % 0.6 % (0.0-4.0); HEMOGLOBIN 12.2 g/dL (12.0-16.0); LYMPH # 1.5 K/uL (1.0-4.3); LYMPH % 24.3 % (20.0-40.0); MEAN CELL VOLUME 84.1 fl (81.0-99.0); MEAN CORPUSCULAR HEMOGLOBIN 27.6 pg (27.0-31.0); MEAN CORPUSCULAR HGB CONC 32.8 g/dL (33.0-37.0); MEAN PLATELET VOLUME 8.7 fl (7.2-11.7); MONO # 0.4 K/uL (0.0-0.8); MONO % 6.2 % (0.0-10.0); NEUT # 4.1 K/uL (1.8-7.0); NEUT % 68.5 % (50.0-75.0); RBC 4.44 Mil/uL (3.80-5.20); RED CELL DISTRIBUTION WIDTH 18.2 % (11.5-14.5)
[2018-07-28 08:11] LABS: ALB/GLOB RATIO 0.9 (1.0-2.1); ALBUMIN 3.4 g/dL (3.5-5.0); ALT/SGPT 40 U/L (9-52); AST/SGOT 41 U/L (14-36); BLOOD UREA NITROGEN 29 mg/dl (7-17); CALCIUM 8.7 mg/dL (8.4-10.2); GFR NON-AFRICAN AMERICAN > 60
[2018-07-28] MEDS: Lactobacillus Acidophilus 500 MU Cap PO SCH ×2 (09:19→16:50)
[2018-07-28] MEDS: Pantoprazole 40 mg EC Tab PO SCH (09:20)
[2018-07-28] MEDS: Magnesium Oxide 400 mg Tab UD PO SCH ×2 (09:20→16:51)
[2018-07-28] MEDS: Emtricitabine-Tenofovir 200 mg-300 mg Tab PO SCH (09:20)
[2018-07-28] MEDS: Docusate-Senna 50 mg-8.6 mg Tab PO SCH ×2 (09:22→17:29)
[2018-07-28] MEDS: guaiFENesin-DM 600-30 mg ER Tab PO SCH ×2 (09:22→16:51)
[2018-07-28] MEDS: Tmp-Smz 800 mg-160 mg DS Tab PO SCH (09:23)
--- NOTE | 2018-07-28 10:46 | CP.PCM.PN ---
Subjective - Date & Time of Evaluation Date of Evaluation: 07/28/18 Time of Evaluation: 10:46 - Subjective Subjective: nNO CHEST PAINS/SOB MILD COUGH AFEBRILE RESPONDS APPROPRIATELY TO VERBAL COMMANDS Objective - Vital Signs/Intake and Output Vital Signs (last 24 hours): Temp Pulse Resp BP Pulse Ox 98.1 F 94 H 19 114/64 99 07/28/18 08:34 07/28/18 09:20 07/28/18 08:34 07/28/18 09:20 07/28/18 08:34 - Medications Medications: Current Medications Acetaminophen (Tylenol 325mg/10.15ml Ud) 650 mg PO Q4H PRN PRN Reason: Temperature Acetaminophen (Tylenol 325mg/10.15ml Ud) 650 mg PO Q6 PRN PRN Reason: Headache Acyclovir (Zovirax) 800 mg PO TID [facility]; Protocol Last Admin: 07/28/18 09:23 Dose: 800 mg Albuterol/Ipratropium (Duoneb 3 Mg/0.5 Mg (3 Ml) Ud) 3 ml INH RQ4 [facility] Last Admin: 07/28/18 07:49 Dose: 3 ml Amlodipine Besylate (Norvasc) 5 mg PO DAILY [facility] Last Admin: 07/28/18 09:20 Dose: 5 mg Aspirin (Ecotrin) 81 mg PO DAILY [facility] Last Admin: 07/28/18 09:24 Dose: 81 mg Atorvastatin Calcium (Lipitor) 20 mg PO DAILY@2200 [facility] Last Admin: 07/27/18 21:08 Dose: 20 mg Dolutegravir Sodium (Tivicay) 50 mg PO DAILY [facility]; Protocol Last Admin: 07/28/18 09:21 Dose: 50 mg Duloxetine HCl (Cymbalta) 30 mg PO BID [facility] Last Admin: 07/28/18 09:20 Dose: 30 mg Emtricitabine/Tenofovir (Truvada 200 Mg-300 Mg) 1 tab PO DAILY [facility]; Protocol Last Admin: 07/28/18 09:20 Dose: 1 tab Guaifenesin/Dextromethorphan (Mucinex-Dm 600-30 Mg) 2 tab PO BID [facility] Last Admin: 07/28/18 09:22 Dose: 2 tab Vancomycin HCl 1 gm/ Sodium (Chloride) 250 mls @ 166.667 mls/hr IVPB DAILY [facility]; Protocol Lactic Acid (Lac-Hydrin 12% Lotion (225 G)) 1 applic TOP Q12 [facility] Last Admin: 07/28/18 09:24 Dose: 1 applic Lactobacillus Acidophilus (Bacid Acidophilus) 1 cap PO BID [facility] Last Admin: 07/28/18 09:19 Dose: 1 cap Magnesium Oxide (Mag-Ox) 400 mg PO BID [facility] Last Admin: 07/28/18 09:20 Dose: 400 mg Pantoprazole Sodium (Protonix Ec Tab) 40 mg PO DAILY [facility] Last Admin: 07/28/18 09:20 Dose: 40 mg Prednisone (Prednisone Tab) 40 mg PO DAILY [facility] Last Admin: 07/28/18 09:22 Dose: 40 mg Quetiapine Fumarate (Seroquel) 200 mg PO HS [facility] Last Admin: 07/27/18 21:08 Dose: 200 mg Senna/Docusate Sodium (Senokot S 50 Mg-8.6 Mg) 2 tab PO BID [facility] Last Admin: 07/28/18 09:22 Dose: 2 tab - Labs Labs: 07/28/18 05:30 07/28/18 05:30 - Constitutional Appears: No Acute Distress - Head Exam Head Exam: ATRAUMATIC, NORMAL INSPECTION, NORMOCEPHALIC - Eye Exam Eye Exam: EOMI, Normal appearance, PERRL Pupil Exam: NORMAL ACCOMODATION, PERRL - ENT Exam ENT Exam: Mucous Membranes Moist, Normal Exam - Neck Exam Neck Exam: Full ROM, Normal Inspection. absent: Lymphadenopathy - Respiratory Exam Respiratory Exam: Clear to Ausculation Bilateral, Prolonged Expiratory Phase, NORMAL BREATHING PATTERN - Cardiovascular Exam Cardiovascular Exam: REGULAR RHYTHM, +S1, +S2. absent: Murmur - GI/Abdominal Exam GI & Abdominal Exam: Soft, Normal Bowel Sounds. absent: Tenderness - Rectal Exam Rectal Exam: NORMAL INSPECTION - Extremities Exam Extremities Exam: Full ROM, Normal Capillary Refill, Normal Inspection. absent: Joint Swelling, Pedal Edema - Back Exam Back Exam: NORMAL INSPECTION - Neurological Exam Neurological Exam: Alert, Awake, CN II-XII Intact, Normal Gait, Oriented x3 Additional comments: R HEMIPLEGIA - Psychiatric Exam Psychiatric exam: Normal Affect, Normal Mood - Skin Skin Exam: Dry, Intact, Normal Color, Warm Assessment and Plan - Assessment and Plan (Free Text) Assessment: PNEUMONIA RESOLVED[CXR REVIEWED] CVA Plan: D/C VANCOMYCIN CONTINUE PT/OT
--- NOTE | 2018-07-28 18:57 | CP.PCM.PN ---
Subjective - Date & Time of Evaluation Date of Evaluation: 07/27/18 Time of Evaluation: 20:00 - Subjective Subjective: no acute complaints at present Objective - Vital Signs/Intake and Output Vital Signs (last 24 hours): Temp Pulse Resp BP Pulse Ox 98.1 F 94 H 19 114/64 99 07/28/18 08:34 07/28/18 09:20 07/28/18 08:34 07/28/18 09:20 07/28/18 08:34 - Medications Medications: Current Medications Acetaminophen (Tylenol 325mg/10.15ml Ud) 650 mg PO Q4H PRN PRN Reason: Temperature Acetaminophen (Tylenol 325mg/10.15ml Ud) 650 mg PO Q6 PRN PRN Reason: Headache Acyclovir (Zovirax) 800 mg PO TID [facility]; Protocol Last Admin: 07/28/18 16:52 Dose: 800 mg Albuterol/Ipratropium (Duoneb 3 Mg/0.5 Mg (3 Ml) Ud) 3 ml INH RQ4 [facility] Last Admin: 07/28/18 15:32 Dose: 3 ml Amlodipine Besylate (Norvasc) 5 mg PO DAILY [facility] Last Admin: 07/28/18 09:20 Dose: 5 mg Aspirin (Ecotrin) 81 mg PO DAILY [facility] Last Admin: 07/28/18 09:24 Dose: 81 mg Atorvastatin Calcium (Lipitor) 20 mg PO DAILY@2200 [facility] Last Admin: 07/27/18 21:08 Dose: 20 mg Dolutegravir Sodium (Tivicay) 50 mg PO DAILY [facility]; Protocol Last Admin: 07/28/18 09:21 Dose: 50 mg Duloxetine HCl (Cymbalta) 30 mg PO BID [facility] Last Admin: 07/28/18 16:50 Dose: 30 mg Emtricitabine/Tenofovir (Truvada 200 Mg-300 Mg) 1 tab PO DAILY [facility]; Protocol Last Admin: 07/28/18 09:20 Dose: 1 tab Guaifenesin/Dextromethorphan (Mucinex-Dm 600-30 Mg) 2 tab PO BID [facility] Last Admin: 07/28/18 16:51 Dose: 2 tab Lactic Acid (Lac-Hydrin 12% Lotion (225 G)) 1 applic TOP Q12 [facility] Last Admin: 07/28/18 09:24 Dose: 1 applic Lactobacillus Acidophilus (Bacid Acidophilus) 1 cap PO BID [facility] Last Admin: 07/28/18 16:50 Dose: 1 cap Magnesium Oxide (Mag-Ox) 400 mg PO BID [facility] Last Admin: 07/28/18 16:51 Dose: 400 mg Pantoprazole Sodium (Protonix Ec Tab) 40 mg PO DAILY [facility] Last Admin: 07/28/18 09:20 Dose: 40 mg Prednisone (Prednisone Tab) 40 mg PO DAILY [facility] Last Admin: 07/28/18 09:22 Dose: 40 mg Quetiapine Fumarate (Seroquel) 200 mg PO HS [facility] Last Admin: 07/27/18 21:08 Dose: 200 mg Senna/Docusate Sodium (Senokot S 50 Mg-8.6 Mg) 2 tab PO BID [facility] Last Admin: 07/28/18 17:29 Dose: Not Given Trimethoprim/Sulfamethoxazole (Bactrim Ds Tab) 1 tab PO DAILY [facility]; Protocol - Labs Labs: 07/28/18 05:30 07/28/18 05:30 - Constitutional Appears: Well - Head Exam Head Exam: ATRAUMATIC, NORMAL INSPECTION, NORMOCEPHALIC - Eye Exam Eye Exam: EOMI, Normal appearance Pupil Exam: NORMAL ACCOMODATION, PERRL - ENT Exam ENT Exam: Mucous Membranes Moist, Normal Exam - Neck Exam Neck Exam: Normal Inspection - Respiratory Exam Respiratory Exam: Clear to Ausculation Bilateral, NORMAL BREATHING PATTERN - Cardiovascular Exam Cardiovascular Exam: REGULAR RHYTHM - GI/Abdominal Exam GI & Abdominal Exam: Soft, Normal Bowel Sounds - Rectal Exam Rectal Exam: NORMAL INSPECTION - Exam External exam: NORMAL EXTERNAL EXAM - Extremities Exam Extremities Exam: Full ROM, Normal Capillary Refill, Normal Inspection - Back Exam Back Exam: NORMAL INSPECTION - Neurological Exam Neurological Exam: Alert, Awake Additional comments: hemiplegia - Psychiatric Exam Psychiatric exam: Normal Affect, Normal Mood - Skin Skin Exam: Normal Color Assessment and Plan (1) Aspiration pneumonia Status: Acute (2) COPD (chronic obstructive pulmonary disease) Status: Acute (3) COPD with exacerbation Status: Acute - Assessment and Plan (Free Text) Assessment: CVa hemilplegia, plan for physical, occupational rec and speech therapy program
[2018-07-29] MEDS: Albuterol-Ipratrop 3 mg / 0.5 (3 ml) UD INH SCH ×6 (04:07→23:31)
[2018-07-29] MEDS: Emtricitabine-Tenofovir 200 mg-300 mg Tab PO SCH (08:40)
[2018-07-29] MEDS: guaiFENesin-DM 600-30 mg ER Tab PO SCH ×2 (08:40→17:06)
[2018-07-29] MEDS: Tmp-Smz 800 mg-160 mg DS Tab PO SCH (08:41)
[2018-07-29] MEDS: Pantoprazole 40 mg EC Tab PO SCH (08:44)
[2018-07-29] MEDS: Magnesium Oxide 400 mg Tab UD PO SCH ×2 (08:44→17:07)
[2018-07-29] MEDS: Docusate-Senna 50 mg-8.6 mg Tab PO SCH ×2 (08:44→17:08)
[2018-07-29] MEDS: Lactobacillus Acidophilus 500 MU Cap PO SCH ×2 (08:46→17:03)
--- NOTE | 2018-07-29 13:01 | CP.PCM.PN ---
Subjective - Date & Time of Evaluation Date of Evaluation: 07/29/18 Time of Evaluation: 09:00 - Subjective Subjective: discussed with DR Stahl pneumonia resolved Vanco d/c'd antivirals reordered Objective - Vital Signs/Intake and Output Vital Signs (last 24 hours): Temp Pulse Resp BP Pulse Ox 97.9 F 78 19 121/78 95 07/29/18 08:29 07/29/18 08:43 07/29/18 08:29 07/29/18 08:43 07/29/18 08:29 - Medications Medications: Current Medications Acetaminophen (Tylenol 325mg/10.15ml Ud) 650 mg PO Q4H PRN PRN Reason: Temperature Acetaminophen (Tylenol 325mg/10.15ml Ud) 650 mg PO Q6 PRN PRN Reason: Headache Acyclovir (Zovirax) 800 mg PO TID [facility]; Protocol Last Admin: 07/29/18 12:38 Dose: 800 mg Albuterol/Ipratropium (Duoneb 3 Mg/0.5 Mg (3 Ml) Ud) 3 ml INH RQ4 [facility] Last Admin: 07/29/18 11:04 Dose: 3 ml Amlodipine Besylate (Norvasc) 5 mg PO DAILY [facility] Last Admin: 07/29/18 08:43 Dose: 5 mg Aspirin (Ecotrin) 81 mg PO DAILY [facility] Last Admin: 07/29/18 08:41 Dose: 81 mg Atorvastatin Calcium (Lipitor) 20 mg PO DAILY@2200 [facility] Last Admin: 07/28/18 21:16 Dose: 20 mg Dolutegravir Sodium (Tivicay) 50 mg PO DAILY [facility]; Protocol Last Admin: 07/29/18 08:41 Dose: 50 mg Duloxetine HCl (Cymbalta) 30 mg PO BID [facility] Last Admin: 07/29/18 08:44 Dose: 30 mg Emtricitabine/Tenofovir (Truvada 200 Mg-300 Mg) 1 tab PO DAILY [facility]; Protocol Last Admin: 07/29/18 08:40 Dose: 1 tab Guaifenesin/Dextromethorphan (Mucinex-Dm 600-30 Mg) 2 tab PO BID [facility] Last Admin: 07/29/18 08:40 Dose: 2 tab Lactic Acid (Lac-Hydrin 12% Lotion (225 G)) 1 applic TOP Q12 [facility] Last Admin: 07/29/18 08:42 Dose: 1 applic Lactobacillus Acidophilus (Bacid Acidophilus) 1 cap PO BID [facility] Last Admin: 07/29/18 08:46 Dose: 1 cap Magnesium Oxide (Mag-Ox) 400 mg PO BID [facility] Last Admin: 07/29/18 08:44 Dose: 400 mg Pantoprazole Sodium (Protonix Ec Tab) 40 mg PO DAILY [facility] Last Admin: 07/29/18 08:44 Dose: 40 mg Prednisone (Prednisone Tab) 40 mg PO DAILY [facility] Last Admin: 07/29/18 08:42 Dose: 40 mg Quetiapine Fumarate (Seroquel) 200 mg PO HS [facility] Last Admin: 07/28/18 21:16 Dose: 200 mg Senna/Docusate Sodium (Senokot S 50 Mg-8.6 Mg) 2 tab PO BID [facility] Last Admin: 07/29/18 08:44 Dose: 2 tab Trimethoprim/Sulfamethoxazole (Bactrim Ds Tab) 1 tab PO DAILY [facility]; Protocol Last Admin: 07/29/18 08:41 Dose: 1 tab - Labs Labs: 07/28/18 05:30 07/28/18 05:30 - Constitutional Appears: Non-toxic, Chronically Ill - Head Exam Head Exam: NORMOCEPHALIC - Eye Exam Eye Exam: absent: Scleral icterus - ENT Exam ENT Exam: Mucous Membranes Dry - Neck Exam Neck Exam: absent: Lymphadenopathy - Respiratory Exam Respiratory Exam: Decreased Breath Sounds - Cardiovascular Exam Cardiovascular Exam: REGULAR RHYTHM - GI/Abdominal Exam GI & Abdominal Exam: Distended, Soft - Rectal Exam Rectal Exam: Deferred - Exam Exam: NORMAL INSPECTION - Back Exam Back Exam: absent: CVA tenderness (L), CVA tenderness (R) - Neurological Exam Neuro motor strength exam: Left Upper Extremity: 4, Right Upper Extremity: 0, Left Lower Extremity: 4, Right Lower Extremity: 0 - Psychiatric Exam Psychiatric exam: Depressed - Skin Skin Exam: Dry Assessment and Plan (1) Aspiration pneumonia Status: Acute (2) COPD (chronic obstructive pulmonary disease) Status: Acute (3) Cerebrovascular accident (CVA) with right hemiparesis Status: Acute (4) Depression Status: Acute (5) HIV (human immunodeficiency virus infection) Status: Acute (6) Rhabdomyolysis Status: Acute - Assessment and Plan (Free Text) Assessment: resolved pneumonia renew HAART rx Vanco d/c'd
--- NOTE | 2018-07-29 14:50 | CP.PCM.PN ---
Subjective - Date & Time of Evaluation Date of Evaluation: 07/28/18 Time of Evaluation: 20:00 - Subjective Subjective: no acute complaints at present Objective - Vital Signs/Intake and Output Vital Signs (last 24 hours): Temp Pulse Resp BP Pulse Ox 97.9 F 78 19 121/78 95 07/29/18 08:29 07/29/18 08:43 07/29/18 08:29 07/29/18 08:43 07/29/18 08:29 - Medications Medications: Current Medications Acetaminophen (Tylenol 325mg/10.15ml Ud) 650 mg PO Q4H PRN PRN Reason: Temperature Acetaminophen (Tylenol 325mg/10.15ml Ud) 650 mg PO Q6 PRN PRN Reason: Headache Acyclovir (Zovirax) 400 mg PO BID [facility]; Protocol Albuterol/Ipratropium (Duoneb 3 Mg/0.5 Mg (3 Ml) Ud) 3 ml INH RQ4 [facility] Last Admin: 07/29/18 11:04 Dose: 3 ml Amlodipine Besylate (Norvasc) 5 mg PO DAILY [facility] Last Admin: 07/29/18 08:43 Dose: 5 mg Aspirin (Ecotrin) 81 mg PO DAILY [facility] Last Admin: 07/29/18 08:41 Dose: 81 mg Atorvastatin Calcium (Lipitor) 20 mg PO DAILY@2200 [facility] Last Admin: 07/28/18 21:16 Dose: 20 mg Dolutegravir Sodium (Tivicay) 50 mg PO DAILY [facility]; Protocol Last Admin: 07/29/18 08:41 Dose: 50 mg Duloxetine HCl (Cymbalta) 30 mg PO BID [facility] Last Admin: 07/29/18 08:44 Dose: 30 mg Emtricitabine/Tenofovir (Truvada 200 Mg-300 Mg) 1 tab PO DAILY [facility]; Protocol Last Admin: 07/29/18 08:40 Dose: 1 tab Guaifenesin/Dextromethorphan (Mucinex-Dm 600-30 Mg) 2 tab PO BID [facility] Last Admin: 07/29/18 08:40 Dose: 2 tab Lactic Acid (Lac-Hydrin 12% Lotion (225 G)) 1 applic TOP Q12 [facility] Last Admin: 07/29/18 08:42 Dose: 1 applic Lactobacillus Acidophilus (Bacid Acidophilus) 1 cap PO BID [facility] Last Admin: 07/29/18 08:46 Dose: 1 cap Magnesium Oxide (Mag-Ox) 400 mg PO BID [facility] Last Admin: 07/29/18 08:44 Dose: 400 mg Pantoprazole Sodium (Protonix Ec Tab) 40 mg PO DAILY [facility] Last Admin: 07/29/18 08:44 Dose: 40 mg Prednisone (Prednisone Tab) 40 mg PO DAILY [facility] Last Admin: 07/29/18 08:42 Dose: 40 mg Quetiapine Fumarate (Seroquel) 200 mg PO HS [facility] Last Admin: 07/28/18 21:16 Dose: 200 mg Senna/Docusate Sodium (Senokot S 50 Mg-8.6 Mg) 2 tab PO BID [facility] Last Admin: 07/29/18 08:44 Dose: 2 tab Trimethoprim/Sulfamethoxazole (Bactrim Ds Tab) 1 tab PO DAILY [facility]; Protocol Last Admin: 07/29/18 08:41 Dose: 1 tab - Labs Labs: 07/28/18 05:30 07/28/18 05:30 - Constitutional Appears: Well - Head Exam Head Exam: ATRAUMATIC, NORMAL INSPECTION, NORMOCEPHALIC - Eye Exam Eye Exam: EOMI, Normal appearance Pupil Exam: NORMAL ACCOMODATION, PERRL - ENT Exam ENT Exam: Mucous Membranes Moist, Normal Exam - Neck Exam Neck Exam: Normal Inspection - Respiratory Exam Respiratory Exam: Clear to Ausculation Bilateral, NORMAL BREATHING PATTERN - Cardiovascular Exam Cardiovascular Exam: REGULAR RHYTHM - GI/Abdominal Exam GI & Abdominal Exam: Normal Bowel Sounds - Rectal Exam Rectal Exam: NORMAL INSPECTION - Exam External exam: NORMAL EXTERNAL EXAM - Extremities Exam Extremities Exam: Normal Capillary Refill - Back Exam Back Exam: NORMAL INSPECTION - Neurological Exam Neurological Exam: Alert Neuro motor strength exam: Right Upper Extremity: 0, Right Lower Extremity: 0 - Psychiatric Exam Psychiatric exam: Normal Affect, Normal Mood - Skin Skin Exam: Normal Color Assessment and Plan (1) Aspiration pneumonia Status: Acute (2) COPD (chronic obstructive pulmonary disease) Status: Acute (3) COPD with exacerbation Status: Acute - Assessment and Plan (Free Text) Assessment: patient with arm and leg weakness, plan for physical, occupational, rec and speech therapy . Follow up regarding pain and pneumonia. To Discuss Dc planning next week
[2018-07-30] MEDS: Albuterol-Ipratrop 3 mg / 0.5 (3 ml) UD INH SCH ×6 (05:00→23:34)
[2018-07-30] MEDS: Lactobacillus Acidophilus 500 MU Cap PO SCH ×2 (08:43→17:46)
[2018-07-30] MEDS: Emtricitabine-Tenofovir 200 mg-300 mg Tab PO SCH (08:44)
[2018-07-30] MEDS: Magnesium Oxide 400 mg Tab UD PO SCH ×2 (08:45→17:46)
[2018-07-30] MEDS: Pantoprazole 40 mg EC Tab PO SCH (08:45)
[2018-07-30] MEDS: guaiFENesin-DM 600-30 mg ER Tab PO SCH ×2 (08:45→17:47)
[2018-07-30] MEDS: Docusate-Senna 50 mg-8.6 mg Tab PO SCH ×2 (08:45→17:47)
[2018-07-30] MEDS: Tmp-Smz 800 mg-160 mg DS Tab PO SCH (08:47)
--- NOTE | 2018-07-30 09:31 | CP.PCM.PN ---
Subjective - Date & Time of Evaluation Date of Evaluation: 07/30/18 Time of Evaluation: 09:31 - Subjective Subjective: NO CHEST PAINS/SOB PERSISTENT R HEMIPLEGIA Objective - Vital Signs/Intake and Output Vital Signs (last 24 hours): Temp Pulse Resp BP Pulse Ox 97.7 F 75 18 103/65 94 L 07/30/18 07:36 07/30/18 08:46 07/30/18 07:36 07/30/18 08:46 07/30/18 07:36 - Medications Medications: Current Medications Acetaminophen (Tylenol 325mg/10.15ml Ud) 650 mg PO Q4H PRN PRN Reason: Temperature Acetaminophen (Tylenol 325mg/10.15ml Ud) 650 mg PO Q6 PRN PRN Reason: Headache Acyclovir (Zovirax) 400 mg PO BID [facility]; Protocol Last Admin: 07/30/18 08:44 Dose: 400 mg Albuterol/Ipratropium (Duoneb 3 Mg/0.5 Mg (3 Ml) Ud) 3 ml INH RQ4 [facility] Last Admin: 07/30/18 07:36 Dose: Not Given Amlodipine Besylate (Norvasc) 5 mg PO DAILY [facility] Last Admin: 07/30/18 08:46 Dose: 5 mg Aspirin (Ecotrin) 81 mg PO DAILY [facility] Last Admin: 07/30/18 08:47 Dose: 81 mg Atorvastatin Calcium (Lipitor) 20 mg PO DAILY@2200 [facility] Last Admin: 07/29/18 21:55 Dose: 20 mg Dolutegravir Sodium (Tivicay) 50 mg PO DAILY [facility]; Protocol Last Admin: 07/30/18 08:48 Dose: 50 mg Duloxetine HCl (Cymbalta) 30 mg PO BID [facility] Last Admin: 07/30/18 08:44 Dose: 30 mg Emtricitabine/Tenofovir (Truvada 200 Mg-300 Mg) 1 tab PO DAILY [facility]; Protocol Last Admin: 07/30/18 08:44 Dose: 1 tab Guaifenesin/Dextromethorphan (Mucinex-Dm 600-30 Mg) 2 tab PO BID [facility] Last Admin: 07/30/18 08:45 Dose: 2 tab Lactic Acid (Lac-Hydrin 12% Lotion (225 G)) 1 applic TOP Q12 [facility] Last Admin: 07/30/18 08:43 Dose: 1 applic Lactobacillus Acidophilus (Bacid Acidophilus) 1 cap PO BID [facility] Last Admin: 07/30/18 08:43 Dose: 1 cap Magnesium Oxide (Mag-Ox) 400 mg PO BID [facility] Last Admin: 07/30/18 08:45 Dose: 400 mg Pantoprazole Sodium (Protonix Ec Tab) 40 mg PO DAILY [facility] Last Admin: 07/30/18 08:45 Dose: 40 mg Prednisone (Prednisone Tab) 40 mg PO DAILY [facility] Last Admin: 07/30/18 08:46 Dose: 40 mg Quetiapine Fumarate (Seroquel) 200 mg PO HS [facility] Last Admin: 07/29/18 21:55 Dose: 200 mg Senna/Docusate Sodium (Senokot S 50 Mg-8.6 Mg) 2 tab PO BID [facility] Last Admin: 07/30/18 08:45 Dose: 2 tab Trimethoprim/Sulfamethoxazole (Bactrim Ds Tab) 1 tab PO DAILY [facility]; Protocol Last Admin: 07/30/18 08:47 Dose: 1 tab - Labs Labs: 07/28/18 05:30 07/28/18 05:30 - Constitutional Appears: No Acute Distress - Head Exam Head Exam: ATRAUMATIC, NORMAL INSPECTION, NORMOCEPHALIC - Eye Exam Eye Exam: EOMI, Normal appearance, PERRL Pupil Exam: NORMAL ACCOMODATION, PERRL - ENT Exam ENT Exam: Mucous Membranes Moist, Normal Exam - Neck Exam Neck Exam: Full ROM, Normal Inspection. absent: Lymphadenopathy - Respiratory Exam Respiratory Exam: Clear to Ausculation Bilateral, NORMAL BREATHING PATTERN - Cardiovascular Exam Cardiovascular Exam: REGULAR RHYTHM, +S1, +S2. absent: Murmur - GI/Abdominal Exam GI & Abdominal Exam: Soft, Normal Bowel Sounds. absent: Tenderness - Rectal Exam Rectal Exam: NORMAL INSPECTION - Extremities Exam Extremities Exam: Full ROM, Normal Capillary Refill, Normal Inspection. absent: Joint Swelling, Pedal Edema - Back Exam Back Exam: NORMAL INSPECTION - Neurological Exam Neurological Exam: Alert, Awake, CN II-XII Intact, Oriented x3 Additional comments: R HEMIPLEGIA - Psychiatric Exam Psychiatric exam: Normal Affect, Normal Mood - Skin Skin Exam: Dry, Intact, Normal Color, Warm Assessment and Plan - Assessment and Plan (Free Text) Assessment: CVA PNEUMONIA-RESOLVED Plan: CONTINUE CURRENT RX
--- NOTE | 2018-07-30 13:11 | CP.PCM.PN ---
Subjective - Date & Time of Evaluation Date of Evaluation: 07/30/18 Time of Evaluation: 10:00 - Subjective Subjective: Patient seen during therapy.Feeling better , participating with PT. Hemodynamically stable, afebrile. With right side hemiparesis and slurred speech No acute issues overnight Objective - Vital Signs/Intake and Output Vital Signs (last 24 hours): Temp Pulse Resp BP Pulse Ox 97.7 F 75 18 103/65 94 L 07/30/18 07:36 07/30/18 08:46 07/30/18 07:36 07/30/18 08:46 07/30/18 07:36 - Medications Medications: Current Medications Acetaminophen (Tylenol 325mg/10.15ml Ud) 650 mg PO Q4H PRN PRN Reason: Temperature Acetaminophen (Tylenol 325mg/10.15ml Ud) 650 mg PO Q6 PRN PRN Reason: Headache Acyclovir (Zovirax) 400 mg PO BID [facility]; Protocol Last Admin: 07/30/18 08:44 Dose: 400 mg Albuterol/Ipratropium (Duoneb 3 Mg/0.5 Mg (3 Ml) Ud) 3 ml INH RQ4 [facility] Last Admin: 07/30/18 07:36 Dose: Not Given Amlodipine Besylate (Norvasc) 5 mg PO DAILY [facility] Last Admin: 07/30/18 08:46 Dose: 5 mg Aspirin (Ecotrin) 81 mg PO DAILY [facility] Last Admin: 07/30/18 08:47 Dose: 81 mg Atorvastatin Calcium (Lipitor) 20 mg PO DAILY@2200 [facility] Last Admin: 07/29/18 21:55 Dose: 20 mg Dolutegravir Sodium (Tivicay) 50 mg PO DAILY [facility]; Protocol Last Admin: 07/30/18 08:48 Dose: 50 mg Duloxetine HCl (Cymbalta) 30 mg PO BID [facility] Last Admin: 07/30/18 08:44 Dose: 30 mg Emtricitabine/Tenofovir (Truvada 200 Mg-300 Mg) 1 tab PO DAILY [facility]; Protocol Last Admin: 07/30/18 08:44 Dose: 1 tab Guaifenesin/Dextromethorphan (Mucinex-Dm 600-30 Mg) 2 tab PO BID [facility] Last Admin: 07/30/18 08:45 Dose: 2 tab Lactic Acid (Lac-Hydrin 12% Lotion (225 G)) 1 applic TOP Q12 [facility] Last Admin: 07/30/18 08:43 Dose: 1 applic Lactobacillus Acidophilus (Bacid Acidophilus) 1 cap PO BID [facility] Last Admin: 07/30/18 08:43 Dose: 1 cap Magnesium Oxide (Mag-Ox) 400 mg PO BID [facility] Last Admin: 07/30/18 08:45 Dose: 400 mg Pantoprazole Sodium (Protonix Ec Tab) 40 mg PO DAILY [facility] Last Admin: 07/30/18 08:45 Dose: 40 mg Prednisone (Prednisone Tab) 40 mg PO DAILY [facility] Last Admin: 07/30/18 08:46 Dose: 40 mg Quetiapine Fumarate (Seroquel) 200 mg PO HS [facility] Last Admin: 07/29/18 21:55 Dose: 200 mg Senna/Docusate Sodium (Senokot S 50 Mg-8.6 Mg) 2 tab PO BID [facility] Last Admin: 07/30/18 08:45 Dose: 2 tab Trimethoprim/Sulfamethoxazole (Bactrim Ds Tab) 1 tab PO DAILY [facility]; Protocol Last Admin: 07/30/18 08:47 Dose: 1 tab - Labs Labs: 07/28/18 05:30 07/28/18 05:30 - Constitutional Appears: Non-toxic, No Acute Distress - Head Exam Head Exam: ATRAUMATIC, NORMOCEPHALIC - Eye Exam Eye Exam: PERRL Pupil Exam: NORMAL ACCOMODATION - ENT Exam ENT Exam: Mucous Membranes Moist, Normal Exam - Neck Exam Neck Exam: Full ROM, Normal Inspection - Respiratory Exam Respiratory Exam: Clear to Ausculation Bilateral. absent: Rales, Rhonchi, Wheezes, Respiratory Distress - Cardiovascular Exam Cardiovascular Exam: REGULAR RHYTHM, RRR, +S1, +S2. absent: JVD - GI/Abdominal Exam GI & Abdominal Exam: Soft, Normal Bowel Sounds. absent: Distended, Guarding, Tenderness, Rebound - Rectal Exam Rectal Exam: Deferred - Extremities Exam Extremities Exam: Normal Capillary Refill, Normal Inspection. absent: Pedal Edema - Back Exam Back Exam: NORMAL INSPECTION - Neurological Exam Neurological Exam: Alert, Awake Additional comments: right hemiparesis slurred speech - Psychiatric Exam Psychiatric exam: Normal Affect - Skin Skin Exam: Dry, Normal Color, Warm Assessment and Plan - Assessment and Plan (Free Text) Assessment: 58 yo female with history of HIV, drug abuse and Bipolar DO presented with AMS and was found to have acute ischemic stroke with right sided weakness. Patient also found to have sepsis secondary to pneumonia and flu. She was treated with Levaquin and Vancomycin and Tamiflu. Abdiel being medically stable,transfered to acute rehab for PT At present in rehab , participating with PT . 1. Acute Ischemic Stroke with Right Hemiparesis participating with PT continue BP management and statin restarted ASA continue PT/OT 2. Community Acquired Pneumonia pulmonary and ID on consult completed 14 day course of IV Levaquin finished 2 weeks of IV Vancomycin on Prednisone 40mg PO daily continue Duonebs and Mucinex 3. HIV HAART resumed (Tivicay 50mg daily and Truvada 200mg-300mg daily) CD4 = 135 Screen for opportunistic infections Acyclovir 500mg Q12H and Bactrim 20 ml Q12H for prophylaxis ID consult, Dr Velazco 4. Chronic hepatitis C stable 5. Bipolar Disorder/Depression/Paranoia/Personality Disorder continue Cymbalta 30mg BID and Seroquel 200 mg PO HS [facility] 6. DVT prophylaxis venodyne boots while in bed
[2018-07-31] MEDS: Albuterol-Ipratrop 3 mg / 0.5 (3 ml) UD INH SCH ×6 (04:26→23:56)
[2018-07-31] MEDS: Lactobacillus Acidophilus 500 MU Cap PO SCH ×2 (08:09→17:16)
[2018-07-31] MEDS: guaiFENesin-DM 600-30 mg ER Tab PO SCH ×2 (08:10→17:17)
[2018-07-31] MEDS: Tmp-Smz 800 mg-160 mg DS Tab PO SCH (08:10)
[2018-07-31] MEDS: Pantoprazole 40 mg EC Tab PO SCH (08:10)
[2018-07-31] MEDS: Magnesium Oxide 400 mg Tab UD PO SCH ×2 (08:11→17:17)
[2018-07-31] MEDS: Docusate-Senna 50 mg-8.6 mg Tab PO SCH ×2 (08:13→17:17)
[2018-07-31] MEDS: Emtricitabine-Tenofovir 200 mg-300 mg Tab PO SCH (08:14)
--- NOTE | 2018-07-31 11:10 | CP.PCM.PN ---
Subjective - Date & Time of Evaluation Date of Evaluation: 07/31/18 Time of Evaluation: 11:08 - Subjective Subjective: Neurology Follow-Up Note: Mrs. Kilgore was evaluated this morning on the acute rehab unit. She is doing well, participating in therapy. She denies any new complaints; no h/a, dizziness, visual changes, chest pain, sob, n/v/d. Chart reviewed. Objective - Vital Signs/Intake and Output Vital Signs (last 24 hours): Temp Pulse Resp BP Pulse Ox 97.3 F L 78 20 129/77 98 07/31/18 10:00 07/31/18 10:00 07/31/18 10:00 07/31/18 10:00 07/31/18 10:00 - Medications Medications: Current Medications Acetaminophen (Tylenol 325mg/10.15ml Ud) 650 mg PO Q4H PRN PRN Reason: Temperature Acetaminophen (Tylenol 325mg/10.15ml Ud) 650 mg PO Q6 PRN PRN Reason: Headache Acyclovir (Zovirax) 400 mg PO BID [facility]; Protocol Last Admin: 07/31/18 08:09 Dose: 400 mg Albuterol/Ipratropium (Duoneb 3 Mg/0.5 Mg (3 Ml) Ud) 3 ml INH RQ4 [facility] Last Admin: 07/31/18 08:11 Dose: Not Given Amlodipine Besylate (Norvasc) 5 mg PO DAILY [facility] Last Admin: 07/31/18 08:12 Dose: 5 mg Aspirin (Ecotrin) 81 mg PO DAILY [facility] Last Admin: 07/31/18 08:11 Dose: 81 mg Atorvastatin Calcium (Lipitor) 20 mg PO DAILY@2200 [facility] Last Admin: 07/30/18 21:11 Dose: 20 mg Dolutegravir Sodium (Tivicay) 50 mg PO DAILY [facility]; Protocol Last Admin: 07/31/18 08:10 Dose: 50 mg Duloxetine HCl (Cymbalta) 30 mg PO BID [facility] Last Admin: 07/31/18 08:10 Dose: 30 mg Emtricitabine/Tenofovir (Truvada 200 Mg-300 Mg) 1 tab PO DAILY [facility]; Protocol Last Admin: 07/31/18 08:14 Dose: 1 tab Guaifenesin/Dextromethorphan (Mucinex-Dm 600-30 Mg) 2 tab PO BID [facility] Last Admin: 07/31/18 08:10 Dose: 2 tab Lactic Acid (Lac-Hydrin 12% Lotion (225 G)) 1 applic TOP Q12 [facility] Last Admin: 07/31/18 08:11 Dose: 1 applic Lactobacillus Acidophilus (Bacid Acidophilus) 1 cap PO BID [facility] Last Admin: 07/31/18 08:09 Dose: 1 cap Magnesium Oxide (Mag-Ox) 400 mg PO BID [facility] Last Admin: 07/31/18 08:11 Dose: 400 mg Pantoprazole Sodium (Protonix Ec Tab) 40 mg PO DAILY [facility] Last Admin: 07/31/18 08:10 Dose: 40 mg Prednisone (Prednisone Tab) 40 mg PO DAILY [facility] Last Admin: 07/31/18 08:11 Dose: 40 mg Quetiapine Fumarate (Seroquel) 200 mg PO HS [facility] Last Admin: 07/30/18 21:11 Dose: 200 mg Senna/Docusate Sodium (Senokot S 50 Mg-8.6 Mg) 2 tab PO BID [facility] Last Admin: 07/31/18 08:13 Dose: 2 tab Trimethoprim/Sulfamethoxazole (Bactrim Ds Tab) 1 tab PO DAILY [facility]; Protocol Last Admin: 07/31/18 08:10 Dose: 1 tab - Labs Labs: 07/28/18 05:30 07/28/18 05:30 - Constitutional Appears: Well, Non-toxic, No Acute Distress - Head Exam Head Exam: ATRAUMATIC, NORMAL INSPECTION, NORMOCEPHALIC - Eye Exam Eye Exam: EOMI, Normal appearance, PERRL Pupil Exam: NORMAL ACCOMODATION, PERRL - ENT Exam ENT Exam: Mucous Membranes Moist, Normal Exam - Neck Exam Neck Exam: Full ROM, Normal Inspection - Respiratory Exam Respiratory Exam: NORMAL BREATHING PATTERN - Extremities Exam Extremities Exam: absent: Calf Tenderness, Full ROM, Pedal Edema Additional comments: right hemiplegia from to lue and lle - Back Exam Back Exam: Full ROM, NORMAL INSPECTION - Neurological Exam Neurological Exam: Alert, Awake. absent: Reflexes Normal Neuro motor strength exam: Left Upper Extremity: 5, Right Upper Extremity: 0, Left Lower Extremity: 5, Right Lower Extremity: 0 Additional comments: -Although improving, pt is still aphasic and has difficulty comprehending what is told to her; she is also repetitive in her verbiage at times and responds appropriately other times. -Still has slight right sided facial droop -Strength to LUE and LLE 5/5 -Strength to RUE and RLE 0/5 -Hyperflexia b/l noted -Sensation intact b/l -No tremors noted - Psychiatric Exam Psychiatric exam: Normal Affect, Normal Mood - Skin Skin Exam: Normal Color Assessment and Plan (1) CVA (cerebral vascular accident) Assessment & Plan: Imaging reviewed: -CT Head (07/27/18): Limited examination due to extensive motion artifacts once again. No gross acute intracranial findings appreciated in the interval. Diffuse cerebral atrophy reiterated. Diminishing trace hemorrhage at the left external capsule noted clearly diminished in density indicating chronic state. -Continue ASA and statin. -We will consider a repeat CT Head if there is a suspicion for increased hemorrhage and/or acute changes in pt's mental status. -Continue rehab. -Notify neuro team of any acute changes in pt's condition. Case discussed with Dr. Dennis Status: Acute
--- NOTE | 2018-07-31 12:25 | CP.PCM.PN ---
Subjective - Date & Time of Evaluation Date of Evaluation: 07/31/18 Time of Evaluation: 10:00 - Subjective Subjective: no acute complaints at present , alert sitting in chair Objective - Vital Signs/Intake and Output Vital Signs (last 24 hours): Temp Pulse Resp BP Pulse Ox 97.3 F L 78 20 129/77 98 07/31/18 10:00 07/31/18 10:00 07/31/18 10:00 07/31/18 10:00 07/31/18 10:00 - Medications Medications: Current Medications Acetaminophen (Tylenol 325mg/10.15ml Ud) 650 mg PO Q4H PRN PRN Reason: Temperature Acetaminophen (Tylenol 325mg/10.15ml Ud) 650 mg PO Q6 PRN PRN Reason: Headache Acyclovir (Zovirax) 400 mg PO BID [facility]; Protocol Last Admin: 07/31/18 08:09 Dose: 400 mg Albuterol/Ipratropium (Duoneb 3 Mg/0.5 Mg (3 Ml) Ud) 3 ml INH RQ4 [facility] Last Admin: 07/31/18 11:54 Dose: Not Given Amlodipine Besylate (Norvasc) 5 mg PO DAILY [facility] Last Admin: 07/31/18 08:12 Dose: 5 mg Aspirin (Ecotrin) 81 mg PO DAILY [facility] Last Admin: 07/31/18 08:11 Dose: 81 mg Atorvastatin Calcium (Lipitor) 20 mg PO DAILY@2200 [facility] Last Admin: 07/30/18 21:11 Dose: 20 mg Dolutegravir Sodium (Tivicay) 50 mg PO DAILY [facility]; Protocol Last Admin: 07/31/18 08:10 Dose: 50 mg Duloxetine HCl (Cymbalta) 30 mg PO BID [facility] Last Admin: 07/31/18 08:10 Dose: 30 mg Emtricitabine/Tenofovir (Truvada 200 Mg-300 Mg) 1 tab PO DAILY [facility]; Protocol Last Admin: 07/31/18 08:14 Dose: 1 tab Guaifenesin/Dextromethorphan (Mucinex-Dm 600-30 Mg) 2 tab PO BID [facility] Last Admin: 07/31/18 08:10 Dose: 2 tab Lactic Acid (Lac-Hydrin 12% Lotion (225 G)) 1 applic TOP Q12 [facility] Last Admin: 07/31/18 08:11 Dose: 1 applic Lactobacillus Acidophilus (Bacid Acidophilus) 1 cap PO BID [facility] Last Admin: 07/31/18 08:09 Dose: 1 cap Magnesium Oxide (Mag-Ox) 400 mg PO BID [facility] Last Admin: 07/31/18 08:11 Dose: 400 mg Pantoprazole Sodium (Protonix Ec Tab) 40 mg PO DAILY [facility] Last Admin: 07/31/18 08:10 Dose: 40 mg Prednisone (Prednisone Tab) 40 mg PO DAILY [facility] Last Admin: 07/31/18 08:11 Dose: 40 mg Quetiapine Fumarate (Seroquel) 200 mg PO HS [facility] Last Admin: 07/30/18 21:11 Dose: 200 mg Senna/Docusate Sodium (Senokot S 50 Mg-8.6 Mg) 2 tab PO BID [facility] Last Admin: 07/31/18 08:13 Dose: 2 tab Trimethoprim/Sulfamethoxazole (Bactrim Ds Tab) 1 tab PO DAILY [facility]; Protocol Last Admin: 07/31/18 08:10 Dose: 1 tab - Labs Labs: 07/28/18 05:30 07/28/18 05:30 - Constitutional Appears: Well - Head Exam Head Exam: ATRAUMATIC, NORMAL INSPECTION, NORMOCEPHALIC - Eye Exam Eye Exam: EOMI, Normal appearance, PERRL Pupil Exam: NORMAL ACCOMODATION - ENT Exam ENT Exam: Mucous Membranes Moist, Normal Exam - Neck Exam Neck Exam: Full ROM - Respiratory Exam Respiratory Exam: Clear to Ausculation Bilateral, NORMAL BREATHING PATTERN - Cardiovascular Exam Cardiovascular Exam: REGULAR RHYTHM - GI/Abdominal Exam GI & Abdominal Exam: Soft, Normal Bowel Sounds - Exam External exam: NORMAL EXTERNAL EXAM - Extremities Exam Extremities Exam: Full ROM, Normal Capillary Refill - Neurological Exam Neurological Exam: Alert, Awake Neuro motor strength exam: Right Upper Extremity: 0, Right Lower Extremity: 0 - Psychiatric Exam Psychiatric exam: Normal Affect, Normal Mood - Skin Skin Exam: Dry, Intact Assessment and Plan (1) Aspiration pneumonia Status: Acute (2) COPD (chronic obstructive pulmonary disease) Status: Acute (3) COPD with exacerbation Status: Acute - Assessment and Plan (Free Text) Assessment: right hemiplegia, plan for physical, occupational therapy team for tomorrow
[2018-08-01] MEDS: Albuterol-Ipratrop 3 mg / 0.5 (3 ml) UD INH SCH ×6 (04:30→23:46)
[2018-08-01] MEDS: Lactobacillus Acidophilus 500 MU Cap PO SCH ×2 (08:13→16:37)
[2018-08-01] MEDS: Tmp-Smz 800 mg-160 mg DS Tab PO SCH (08:14)
[2018-08-01] MEDS: Magnesium Oxide 400 mg Tab UD PO SCH ×2 (08:16→16:37)
[2018-08-01] MEDS: guaiFENesin-DM 600-30 mg ER Tab PO SCH ×2 (08:16→16:38)
[2018-08-01] MEDS: Docusate-Senna 50 mg-8.6 mg Tab PO SCH ×2 (08:17→16:38)
[2018-08-01] MEDS: Pantoprazole 40 mg EC Tab PO SCH (08:17)
[2018-08-01] MEDS: Emtricitabine-Tenofovir 200 mg-300 mg Tab PO SCH (08:17)
--- NOTE | 2018-08-01 11:19 | CP.PCM.CON ---
History of Present Illness - History of Present Illness History of Present Illness: Podiatry Consult Note: Dr. Bull 58 year old female patient, with PMHx of HIV, Bipolar disorder, admitted for left ischemic stroke with right side hemiparesis with elongated dystrophic nails. She is currently participating in physical therapy and states that her nails hurt in her shoes. Unable to elicit full history from the patient as patient is poor historian. She denies any other acute pedal complaints at this time. She denies N/V/F. PMHx: HIV, Bipolar disorder, CVA SHx: Drug abuse ALL: PCN Past Patient History - Infectious Disease Hx of Infectious Diseases: None - Past Medical History & Family History Past Medical History?: Yes - Past Social History Smoking Status: Light Smoker < 10 Cigarettes Daily - CARDIAC Hx Hypercholesterolemia: Yes Hx Hypertension: Yes Other/Comment: ELEVATED TROPONIN - PULMONARY Hx Asthma: Yes Hx Chronic Obstructive Pulmonary Disease (COPD): Yes Hx Pneumonia: Yes - NEUROLOGICAL HX Cerebrovascular Accident: Yes Hx Seizures: Yes - HEENT Hx HEENT Problems: No - RENAL Hx Chronic Kidney Disease: No Other/Comment: H/O JOE - ENDOCRINE/METABOLIC Hx Diabetes Mellitus Type 2: No - HEMATOLOGICAL/ONCOLOGICAL Hx AIDS: Yes Hx Anemia: No Hx Hepatitis C: Yes Hx Human Immunodeficiency Virus (HIV): Yes Hx Sickle Cell Disease: No - INTEGUMENTARY Hx Dermatological Problems: No - MUSCULOSKELETAL/RHEUMATOLOGICAL Hx Musculoskeletal Disorders: No Hx Falls: No Hx Rhabdomyolysis: Yes - GASTROINTESTINAL Hx Gastrointestinal Disorders: No - GENITOURINARY/GYNECOLOGICAL Hx Incontinence: Yes (NEW ONSET) Hx Sexually Transmitted Disorders: No (Patient denied) - PSYCHIATRIC Hx Bipolar Disorder: Yes Hx Depression: Yes Hx Substance Use: Yes - SURGICAL HISTORY Hx Tonsillectomy: Yes - ANESTHESIA Hx Anesthesia: Yes Hx Anesthesia Reactions: No Hx Malignant Hyperthermia: No Meds Allergies/Adverse Reactions: Allergies Allergy/AdvReac Type Severity Reaction Status Date / Time Penicillins Allergy pt reports Verified 07/03/18 08:00 seizures - Medications Medications: Current Medications Acetaminophen (Tylenol 325mg/10.15ml Ud) 650 mg PO Q4H PRN PRN Reason: Temperature Acetaminophen (Tylenol 325mg/10.15ml Ud) 650 mg PO Q6 PRN PRN Reason: Headache Acyclovir (Zovirax) 400 mg PO BID [facility]; Protocol Last Admin: 08/01/18 08:18 Dose: 400 mg Albuterol/Ipratropium (Duoneb 3 Mg/0.5 Mg (3 Ml) Ud) 3 ml INH RQ4 [facility] Last Admin: 08/01/18 07:48 Dose: Not Given Amlodipine Besylate (Norvasc) 5 mg PO DAILY [facility] Last Admin: 08/01/18 08:16 Dose: 5 mg Aspirin (Ecotrin) 81 mg PO DAILY [facility] Last Admin: 08/01/18 08:15 Dose: 81 mg Atorvastatin Calcium (Lipitor) 20 mg PO DAILY@2200 [facility] Last Admin: 07/31/18 21:23 Dose: 20 mg Dolutegravir Sodium (Tivicay) 50 mg PO DAILY [facility]; Protocol Last Admin: 08/01/18 08:17 Dose: 50 mg Duloxetine HCl (Cymbalta) 30 mg PO BID [facility] Last Admin: 08/01/18 08:15 Dose: 30 mg Emtricitabine/Tenofovir (Truvada 200 Mg-300 Mg) 1 tab PO DAILY [facility]; Protocol Last Admin: 08/01/18 08:17 Dose: 1 tab Guaifenesin/Dextromethorphan (Mucinex-Dm 600-30 Mg) 2 tab PO BID [facility] Last Admin: 08/01/18 08:16 Dose: 2 tab Lactic Acid (Lac-Hydrin 12% Lotion (225 G)) 1 applic TOP Q12 [facility] Last Admin: 08/01/18 08:15 Dose: 1 applic Lactobacillus Acidophilus (Bacid Acidophilus) 1 cap PO BID [facility] Last Admin: 08/01/18 08:13 Dose: 1 cap Magnesium Oxide (Mag-Ox) 400 mg PO BID [facility] Last Admin: 08/01/18 08:16 Dose: 400 mg Pantoprazole Sodium (Protonix Ec Tab) 40 mg PO DAILY [facility] Last Admin: 08/01/18 08:17 Dose: 40 mg Prednisone (Prednisone Tab) 40 mg PO DAILY [facility] Last Admin: 08/01/18 08:16 Dose: 40 mg Quetiapine Fumarate (Seroquel) 200 mg PO HS [facility] Last Admin: 07/31/18 21:23 Dose: 200 mg Senna/Docusate Sodium (Senokot S 50 Mg-8.6 Mg) 2 tab PO BID [facility] Last Admin: 08/01/18 08:17 Dose: 2 tab Trimethoprim/Sulfamethoxazole (Bactrim Ds Tab) 1 tab PO DAILY [facility]; Protocol Last Admin: 08/01/18 08:14 Dose: 1 tab Physical Exam - Constitutional Appears: Non-toxic, No Acute Distress - Extremities Exam Additional comments: B/L lower extremity focused exam: Vascular: DP/PT 1/4, CFT < 3seconds, TG warm to warm, no edema appreciated Ortho: Weakness appreciated to right lower extremity, no gross deformities appreciated Neuro: Gross sensation intact, protective sensation diminished Derm: Elongated, dystrophic nails x10. No open lesions, no erythema, no clinical signs of infection appreciated at this time - Neurological Exam Neurological exam: Alert, Oriented x3 - Psychiatric Exam Psychiatric exam: Normal Affect, Normal Mood Results - Vital Signs Recent Vital Signs: Last Vital Signs Temp 98.0 F 08/01/18 09:00 Pulse 82 08/01/18 09:00 Resp 21 08/01/18 09:00 BP 121/71 08/01/18 09:00 Pulse Ox 96 08/01/18 08:09 - Labs Result Diagrams: 07/28/18 05:30 07/28/18 05:30 Assessment & Plan - Assessment and Plan (Free Text) Assessment: 58 year old female patient, with PMHx of HIV, Bipolar disorder, admitted for left ischemic stroke with right side hemiparesis with elongated dystrophic nails. Plan: Patient seen and evaluated with all questions and concerns addressed Discussed patient in detail with Dr. Bull Chart, labs, vitals reviewed; Afebrile, absent leukocytosis Patients nails debrided with large nail nipper without incident Podiatry to sign off at this time Thank you for the consult - Date & Time Date: 08/01/18 Time: 11:15
--- NOTE | 2018-08-01 11:40 | CP.PCM.PN ---
Subjective - Date & Time of Evaluation Date of Evaluation: 08/01/18 Time of Evaluation: 10:40 - Subjective Subjective: Patient seen and examined. Admitted getting some improvement with therapy. Objective - Vital Signs/Intake and Output Vital Signs (last 24 hours): Temp Pulse Resp BP Pulse Ox 98.0 F 82 21 121/71 96 08/01/18 09:00 08/01/18 09:00 08/01/18 09:00 08/01/18 09:00 08/01/18 08:09 - Medications Medications: Current Medications Acetaminophen (Tylenol 325mg/10.15ml Ud) 650 mg PO Q4H PRN PRN Reason: Temperature Acetaminophen (Tylenol 325mg/10.15ml Ud) 650 mg PO Q6 PRN PRN Reason: Headache Acyclovir (Zovirax) 400 mg PO BID [facility]; Protocol Last Admin: 08/01/18 08:18 Dose: 400 mg Albuterol/Ipratropium (Duoneb 3 Mg/0.5 Mg (3 Ml) Ud) 3 ml INH RQ4 [facility] Last Admin: 08/01/18 11:21 Dose: Not Given Amlodipine Besylate (Norvasc) 5 mg PO DAILY [facility] Last Admin: 08/01/18 08:16 Dose: 5 mg Aspirin (Ecotrin) 81 mg PO DAILY [facility] Last Admin: 08/01/18 08:15 Dose: 81 mg Atorvastatin Calcium (Lipitor) 20 mg PO DAILY@2200 [facility] Last Admin: 07/31/18 21:23 Dose: 20 mg Dolutegravir Sodium (Tivicay) 50 mg PO DAILY [facility]; Protocol Last Admin: 08/01/18 08:17 Dose: 50 mg Duloxetine HCl (Cymbalta) 30 mg PO BID [facility] Last Admin: 08/01/18 08:15 Dose: 30 mg Emtricitabine/Tenofovir (Truvada 200 Mg-300 Mg) 1 tab PO DAILY [facility]; Protocol Last Admin: 08/01/18 08:17 Dose: 1 tab Guaifenesin/Dextromethorphan (Mucinex-Dm 600-30 Mg) 2 tab PO BID [facility] Last Admin: 08/01/18 08:16 Dose: 2 tab Lactic Acid (Lac-Hydrin 12% Lotion (225 G)) 1 applic TOP Q12 [facility] Last Admin: 08/01/18 08:15 Dose: 1 applic Lactobacillus Acidophilus (Bacid Acidophilus) 1 cap PO BID [facility] Last Admin: 08/01/18 08:13 Dose: 1 cap Magnesium Oxide (Mag-Ox) 400 mg PO BID [facility] Last Admin: 08/01/18 08:16 Dose: 400 mg Pantoprazole Sodium (Protonix Ec Tab) 40 mg PO DAILY [facility] Last Admin: 08/01/18 08:17 Dose: 40 mg Prednisone (Prednisone Tab) 40 mg PO DAILY [facility] Last Admin: 08/01/18 08:16 Dose: 40 mg Quetiapine Fumarate (Seroquel) 200 mg PO HS [facility] Last Admin: 07/31/18 21:23 Dose: 200 mg Senna/Docusate Sodium (Senokot S 50 Mg-8.6 Mg) 2 tab PO BID [facility] Last Admin: 08/01/18 08:17 Dose: 2 tab Trimethoprim/Sulfamethoxazole (Bactrim Ds Tab) 1 tab PO DAILY [facility]; Protocol Last Admin: 08/01/18 08:14 Dose: 1 tab - Labs Labs: 07/28/18 05:30 07/28/18 05:30 - Constitutional Appears: No Acute Distress - Head Exam Head Exam: ATRAUMATIC - Eye Exam Eye Exam: absent: Scleral icterus - ENT Exam ENT Exam: Mucous Membranes Moist - Neck Exam Neck Exam: absent: Meningismus - Respiratory Exam Respiratory Exam: absent: Rales, Rhonchi, Wheezes, Respiratory Distress - Cardiovascular Exam Cardiovascular Exam: REGULAR RHYTHM, +S1, +S2 - GI/Abdominal Exam GI & Abdominal Exam: Soft. absent: Tenderness - Rectal Exam Rectal Exam: Deferred - Extremities Exam Extremities Exam: absent: Pedal Edema - Neurological Exam Neurological Exam: Alert, Oriented x3 - Psychiatric Exam Psychiatric exam: Normal Affect - Skin Skin Exam: Dry, Intact Assessment and Plan - Assessment and Plan (Free Text) Assessment: 58 yo female with history of HIV, drug abuse and Bipolar DO presented with AMS and was found to have acute ischemic stroke with right sided weakness. Patient also had sepsis secondary to pneumonia and flu. She was managed with Levaquin and Vancomycin and Tamiflu. 1. Acute Ischemic Stroke with Right Hemiparesis continue BP management and statin Lovenox and ASA on hold because of hemorrhagic conversion continue PT/OT 2. Community Acquired Pneumonia completed 14 day course of IV Levaquin and Vancomycin Prednisone 40mg PO daily Duoneb Q4H 3. HIV HAART resumed (Tivicay 50mg daily and Truvada 200mg-300mg daily) CD4 = 135 Screen for opportunistic infections continue prophylaxis with Acyclovir and Bactrim ID consult, Dr Velazco 4. Chronic hepatitis C stable 5. Bipolar Disorder/Depression/Paranoia/Personality Disorder continue Cymbalta and Seroquel 6. DVT prophylaxis venodyne boots while in bed
--- NOTE | 2018-08-01 12:05 | PCM.PSYTMC ---
Acute Rehab Team Conference - - Vital Signs: Vital Signs (Last 8 Hours): Vital Signs 08/01/18 08/01/18 08/01/18 08:09 08:16 09:00 Temperature 98.0 F 98.0 F Pulse Rate 82 82 82 Respiratory 21 21 Rate Blood Pressure 121/71 121/71 121/71 O2 Sat by Pulse 96 Oximetry Pain: 0 - Precautions: Precautions: Fall Prevention, Aspiration - Medications/Other Issues: Comment: medication teaching. aspiration precautions - NTL - Consults: Comment: Attending: Dr. Moreira. Physiatry: Dr. Lucy Dunlap. ID: Dr. Velazco. Pulmonary: Dr. Stahl. Neuro: . Podiatry Consult ( complete 08/01/18) - Skin: Incision Site: none Incision: Dehiscence - Toileting: Toileting: Maximal Assistance - Bladder Management: Bladder Pattern: Incontinent Voiding Method: Diaper Bladder Management: Dependent Other Intervention:: with period of incontinence - Transfers: Transfers: Maximal Assistance - ADL's: ADL's: Dependent - Pain Management: Other Intervention:: pt usually denies pain - Patient/Family Teaching: Other Intervention:: Medication teaching, safety, dysphagia precautions - Goals/Time Frame: Comment: Falls free - Provider: Registered Nurse:: Jenny Elena Physical Therapy - Bed Mobility Bed Mobility: Verbal Cues, Minimal Assistance, Moderate Assistance - Transfers Wheelchair to Mat: Verbal Cues, Moderate Assistance Sit to Stand: Verbal Cues, Minimal Assistance, Moderate Assistance - Ambulation Level of Assistance: Moderate Assistance, Maximum Assistance Distance (ft.): 15 Assistive Devices: Wide base quad cane Orthoses: RUE giv-kiah. RLE dorsiflexion wrap Comment: -15 feet with WBQC. -RUE giv-kiah sling, RLE DF wrap. -close WC for all trials. -patient requires mod assist for weight shifting and trunk control. -max A for RLE progression and mod/max A for stability of RLe during stance. - patient continues to demonstrates impaired sequencing with impaired attention and impaired safety; continues to take rapid steps with LLE and takes step with LLE while weight is still on the extremity leading to impaired balance. - patient requires assistance for pacing, sequencing, RLE progression, postural control - Stair Negotiation Stairs: Level of Assistance: Not Tested - Standing Balance Static Stand: Minimal Assistance - Pain Pain (assessed during therapy session): 0 Comment: pt denies - Insight/Carryover Insight/Carryover: Fair - Patient/Family Education Comment: safety, therapy schedule, therapy goals, mobility, importance of OOB, use of self-releasing seat belt, stroke recovery, participation, transfers, attention - Assessment/Plan Assessment: Ms. Kilgore continues to remain distracted during therapy sessions. Patient continues to require frequent cues to attend to task and requires training on command following. Patient did tolerate ambulation of slightly increased distance today and PT continues to work on progressing quality of gait with improved RLE weight bearing and improved sequencing. Pt continues to lack volitional activation on the R side but flaccidity appears to be reducing. PT recommends continued skilled PT with continued emphasis on maximizing recovery patterns vs. compensation at this time. PT continues to recommend discharge to [facility] to continue addressing skilled needs s/p CVA prior to community discharge. - Goals Timeframe: 7 days Goals: -negotiate 4 steps with max A with single L rail. -propel manual WC with LUE and LLE x 150 feet with supervision. -ambulate 25 feet with WBQC with mod A. -sit to/from stand with CGA. -SPT with Mikayla with WBQC. -CGA for bed/mat mobility - Provider Physical Therapist:: Leann Keita License Number:: [id number] Occupational Therapy - Arousal/Attention/Orientation Level of Consciousness: Awake, Alert, Confused Patient Orientation: Person - ADL/IADL Self Feeding: Moderate Assistance Grooming: Maximum Assistance Bathing-Upper Ext: Verbal Cues, Maximum Assistance Bathing-Lower Ext: Verbal Cues, Maximum Assistance Dressing-Upper Ext: Verbal Cues, Maximum Assistance Dressing-Lower Ext: Verbal Cues, Maximum Assistance - Sitting Balance Static Sitting: Supervision - Transfers Wheelchair to Bed Transfers: Moderate Assistance Toilet Transfers: Moderate Assistance - Wheelchair Management Level of Assistance: Supervision - Upper Extremity Status Right Upper Extremity Comment: Flaccid Left Upper Extremity Comment: 3+/5 - Pain Pain (assessed during therapy session): 0 - Insight/Carryover Insight/Carryover: Poor - Patient/Family Education Comment: -adl, transfers/mobility training uisng adaptive/compensatorys straegies. -w/c management/propulsion. -bed positioning/RUE management--laptray. -encourage out of bed activities, adl participation. - review use of call olvera, safety for fall prevention - Assessment/Plan Assessment: Pt cooperative, however continues to be limited by RUE/RLE weakness, balance, coordination, motor planning, R visual neglect, and cognition overall. Pt with decreased attention span and poor problem solving. Requires extensive therapy as well as cognitive training to maximize ADL function. [ End ] - Goals Timeframe: 2 weeks Comment: see eval goals - Provider Occupational Therapist:: Joselyn Padilla License Number: [id number] Speech Therapy - Consult Information Patient on Program: Yes Medical Diagnosis: CVA Treatment Diagnosis: 1.) moderate receptive/expressive aphasia. 2.) mod-severe dysarthria. 3.) moderate pharyngeal dysphagia - Assessment Expressive Language Impairment: Moderate Receptive Language Impairment: Moderate Problem Solving Impairment: Moderate Memory Impairment: Moderate Speech/Articulation Impairment: Moderate Dysphagia/Swallowing Impairment: Moderate - Plan Assessment: Tanya Kilgore presents with 1.) moderate receptive/expressive aphasia characterized by difficulty following 1-2+ step commands, difficulty answering more complex yes/no and open-ended questions, impaired word retrieval, and impaired sentence formation/thought organization for expressing wants/needs/ideas; 2.) moderate-severe dysarthria characterized by impaired oral motor strength/ROM and impaired respiration for phonation resulting in impaired articulatory precision negatively impacting intelligibility at the word/phrase level; and 3.) mild oral and moderate pharyngeal dysphagia (per MBS 07/24/18) characterized by intermittent oral holding of regular solids, intermittent mildly delayed swallow initiation, min-mild stasis in valleculae with thin liquids, and impaired airway protection with deep laryngeal penetration with thin liquids intermittently with no sensory response resulting in eventual silent aspiration of thin liquids; no penetration/aspiration observe with nectar, puree, or regular solids. Barriers to improvement in tx include cognitive deficits and difficulty following commands, as well as impaired attention and pt motivation to participate. Pt would benefit from continued dysphagia tx with VitalStim (NMES) for improved swallow function and airway protection, as well as speech tx for improved receptive/expressive language skills and speech intelligibility. Plan: Continue Dysphagia Therapy, Continue Speech/Language Therapy Frequency: 3-5 times per week Duration: 1 week Goals/Timeframe: Please see progress note dated 07/30/18 for updated goals/POC Recommendations: -Contine speech and dysphagia tx 3-5x/week. -Regular solids/nectar thick liquids - Provider Therapist: Pamella Cole License Number: [id number] Recreational Therapy - Participation Participation: Participates in Individual and/or Group Sessions - Attendance Attendance: 3-5 times per week - Activities Leisure Activities: Cards and Games - Socialization Level of Socialization: Initiates/interacts freely with care givers and peer - Diversional Time Diversional Time: television - Assessment Assessment/Plan: Pt requires verbal cues for encouragement to participate in recreation therapy sessions. When agreeable, pt presents with poor participation and is limited by decrease initiation, decrease attention to task, and fatigue. When OOB, pt will report she is fatigued and presents with decrease arousal level to participate in session. Pt will continue to look at the clock and ask w hen session was over. Pt's barriers to participation is limited insight, decrease command following, and impaired direction following. Pt presents with decrease carryover and decrease activity tolerance to attend to total duration of sessions. Pt will continue to benefit from participating in recreation therapy sessions throughout stay on unit. Problems Currently Limiting Participation: expressive and receptive aphasia, R side weakness, decrease activity tolerance level, decrease leisure awareness level, decrease command following, poor insight of deficits, flat affect Goals and Time Frame: Pt will be encouraged to participate in 1:1 and group recreaton therapy sessions 3-5x week to improve object and number recognition, command following, leisure awareness level, activity tolerance level, and overall mood state. - Provider Therapist: Cely Lucio Nutrition - Current Diet Current Diet/Supplement/Feedings: Regular nectar thick liquids - Appetite Percent Meal Consumed: 50-74% - Assessment/Goals/Time Frame Assessments/Goals/Time Frame: Pt at high nutritional risk. goals: 1. Pt to consume 75-100% of meals(not met, continue). new goal. 2. Deter wt loss. Follow-up due on 08/05/2018 - Provider Provider: Malinda Ledesma Case Management - Psychosocial Assessment Support Systems: Carlo Kilgore (father) - [phone] Psychological Interventions/Needs: Patient is AAO with severe cognitive deficits. Discharge Concerns: Patient lives in a third floor apartment with reportedly 56 steps to go up and no elevator. Patient's parents are elderly and the hands-on assistance they can provide is limited. Patient/Family Meeting: CM met with patient and rehab team. Intervention/Goal/Outcome: 1. Goal: 24hr supervision/care 2. [facility] with possible LTC 3. follow up with [facility] referrals and solidify an accepting facility 4. continue to follow patient's progress and update family accordingly 5. continued emotional support for patient and family - Discharge Plan Discharge Plan: Subacute care - Provider Provider: Sanjuana Gotti License Number: [id number] Rehabilitation Plan - Treatment Plan Treatment Plan: Physical Therapy, Occupational Therapy, Speech, Dietary, Patient/Family Education - Recommendation Recommendation: Physical Therapy, Occupational Therapy, Speech, Dietary, Patient/Family Education - Discharge Plan Discharge to: Subacute (dc 29)
--- NOTE | 2018-08-01 13:10 | CP.PCM.PN ---
Subjective - Date & Time of Evaluation Date of Evaluation: 08/01/18 Time of Evaluation: 07:00 - Subjective Subjective: afeb off antibioitcs on HAART rx will renew same weakness persists Objective - Vital Signs/Intake and Output Vital Signs (last 24 hours): Temp Pulse Resp BP Pulse Ox 98.0 F 82 21 121/71 96 08/01/18 09:00 08/01/18 09:00 08/01/18 09:00 08/01/18 09:00 08/01/18 08:09 - Medications Medications: Current Medications Acetaminophen (Tylenol 325mg/10.15ml Ud) 650 mg PO Q4H PRN PRN Reason: Temperature Acetaminophen (Tylenol 325mg/10.15ml Ud) 650 mg PO Q6 PRN PRN Reason: Headache Acyclovir (Zovirax) 400 mg PO BID [facility]; Protocol Last Admin: 08/01/18 08:18 Dose: 400 mg Albuterol/Ipratropium (Duoneb 3 Mg/0.5 Mg (3 Ml) Ud) 3 ml INH RQ4 [facility] Last Admin: 08/01/18 11:21 Dose: Not Given Amlodipine Besylate (Norvasc) 5 mg PO DAILY [facility] Last Admin: 08/01/18 08:16 Dose: 5 mg Aspirin (Ecotrin) 81 mg PO DAILY [facility] Last Admin: 08/01/18 08:15 Dose: 81 mg Atorvastatin Calcium (Lipitor) 20 mg PO DAILY@2200 [facility] Last Admin: 07/31/18 21:23 Dose: 20 mg Dolutegravir Sodium (Tivicay) 50 mg PO DAILY [facility]; Protocol Last Admin: 08/01/18 08:17 Dose: 50 mg Duloxetine HCl (Cymbalta) 30 mg PO BID [facility] Last Admin: 08/01/18 08:15 Dose: 30 mg Emtricitabine/Tenofovir (Truvada 200 Mg-300 Mg) 1 tab PO DAILY [facility]; Protocol Last Admin: 08/01/18 08:17 Dose: 1 tab Guaifenesin/Dextromethorphan (Mucinex-Dm 600-30 Mg) 2 tab PO BID [facility] Last Admin: 08/01/18 08:16 Dose: 2 tab Lactic Acid (Lac-Hydrin 12% Lotion (225 G)) 1 applic TOP Q12 [facility] Last Admin: 08/01/18 08:15 Dose: 1 applic Lactobacillus Acidophilus (Bacid Acidophilus) 1 cap PO BID [facility] Last Admin: 08/01/18 08:13 Dose: 1 cap Magnesium Oxide (Mag-Ox) 400 mg PO BID [facility] Last Admin: 08/01/18 08:16 Dose: 400 mg Pantoprazole Sodium (Protonix Ec Tab) 40 mg PO DAILY [facility] Last Admin: 08/01/18 08:17 Dose: 40 mg Prednisone (Prednisone Tab) 40 mg PO DAILY [facility] Last Admin: 08/01/18 08:16 Dose: 40 mg Quetiapine Fumarate (Seroquel) 200 mg PO HS [facility] Last Admin: 07/31/18 21:23 Dose: 200 mg Senna/Docusate Sodium (Senokot S 50 Mg-8.6 Mg) 2 tab PO BID [facility] Last Admin: 08/01/18 08:17 Dose: 2 tab Trimethoprim/Sulfamethoxazole (Bactrim Ds Tab) 1 tab PO DAILY [facility]; Protocol Last Admin: 08/01/18 08:14 Dose: 1 tab - Labs Labs: 07/28/18 05:30 07/28/18 05:30 Assessment and Plan (1) Aspiration pneumonia Status: Acute (2) COPD (chronic obstructive pulmonary disease) Status: Acute (3) Cerebrovascular accident (CVA) with right hemiparesis Status: Acute (4) Depression Status: Acute (5) HIV (human immunodeficiency virus infection) Status: Acute (6) Rhabdomyolysis Status: Acute
--- NOTE | 2018-08-01 13:51 | CP.PCM.PN ---
Subjective - Date & Time of Evaluation Date of Evaluation: 08/01/18 Time of Evaluation: 11:00 - Subjective Subjective: no acute complaints at present, eating Objective - Vital Signs/Intake and Output Vital Signs (last 24 hours): Temp Pulse Resp BP Pulse Ox 98.0 F 82 21 121/71 96 08/01/18 09:00 08/01/18 09:00 08/01/18 09:00 08/01/18 09:00 08/01/18 08:09 - Medications Medications: Current Medications Acetaminophen (Tylenol 325mg/10.15ml Ud) 650 mg PO Q4H PRN PRN Reason: Temperature Acetaminophen (Tylenol 325mg/10.15ml Ud) 650 mg PO Q6 PRN PRN Reason: Headache Acyclovir (Zovirax) 400 mg PO BID [facility]; Protocol Last Admin: 08/01/18 08:18 Dose: 400 mg Albuterol/Ipratropium (Duoneb 3 Mg/0.5 Mg (3 Ml) Ud) 3 ml INH RQ4 [facility] Last Admin: 08/01/18 11:21 Dose: Not Given Amlodipine Besylate (Norvasc) 5 mg PO DAILY [facility] Last Admin: 08/01/18 08:16 Dose: 5 mg Aspirin (Ecotrin) 81 mg PO DAILY [facility] Last Admin: 08/01/18 08:15 Dose: 81 mg Atorvastatin Calcium (Lipitor) 20 mg PO DAILY@2200 [facility] Last Admin: 07/31/18 21:23 Dose: 20 mg Dolutegravir Sodium (Tivicay) 50 mg PO DAILY [facility]; Protocol Last Admin: 08/01/18 08:17 Dose: 50 mg Duloxetine HCl (Cymbalta) 30 mg PO BID [facility] Last Admin: 08/01/18 08:15 Dose: 30 mg Emtricitabine/Tenofovir (Truvada 200 Mg-300 Mg) 1 tab PO DAILY [facility]; Protocol Last Admin: 08/01/18 08:17 Dose: 1 tab Guaifenesin/Dextromethorphan (Mucinex-Dm 600-30 Mg) 2 tab PO BID [facility] Last Admin: 08/01/18 08:16 Dose: 2 tab Lactic Acid (Lac-Hydrin 12% Lotion (225 G)) 1 applic TOP Q12 [facility] Last Admin: 08/01/18 08:15 Dose: 1 applic Lactobacillus Acidophilus (Bacid Acidophilus) 1 cap PO BID [facility] Last Admin: 08/01/18 08:13 Dose: 1 cap Magnesium Oxide (Mag-Ox) 400 mg PO BID [facility] Last Admin: 08/01/18 08:16 Dose: 400 mg Pantoprazole Sodium (Protonix Ec Tab) 40 mg PO DAILY [facility] Last Admin: 08/01/18 08:17 Dose: 40 mg Prednisone (Prednisone Tab) 40 mg PO DAILY [facility] Last Admin: 08/01/18 08:16 Dose: 40 mg Quetiapine Fumarate (Seroquel) 200 mg PO HS [facility] Last Admin: 07/31/18 21:23 Dose: 200 mg Senna/Docusate Sodium (Senokot S 50 Mg-8.6 Mg) 2 tab PO BID [facility] Last Admin: 08/01/18 08:17 Dose: 2 tab Trimethoprim/Sulfamethoxazole (Bactrim Ds Tab) 1 tab PO DAILY [facility]; Protocol Last Admin: 08/01/18 08:14 Dose: 1 tab - Labs Labs: 07/28/18 05:30 07/28/18 05:30 - Constitutional Appears: Well - Head Exam Head Exam: ATRAUMATIC, NORMAL INSPECTION, NORMOCEPHALIC - Eye Exam Eye Exam: EOMI, Normal appearance, PERRL Pupil Exam: NORMAL ACCOMODATION - ENT Exam ENT Exam: Mucous Membranes Moist, Normal Exam - Neck Exam Neck Exam: Full ROM, Normal Inspection - Respiratory Exam Respiratory Exam: Clear to Ausculation Bilateral, NORMAL BREATHING PATTERN - Cardiovascular Exam Cardiovascular Exam: REGULAR RHYTHM - GI/Abdominal Exam GI & Abdominal Exam: Soft, Normal Bowel Sounds - Rectal Exam Rectal Exam: NORMAL INSPECTION - Exam External exam: NORMAL EXTERNAL EXAM - Extremities Exam Extremities Exam: Full ROM, Normal Capillary Refill, Normal Inspection - Back Exam Back Exam: NORMAL INSPECTION - Neurological Exam Neurological Exam: Alert, Awake Neuro motor strength exam: Right Upper Extremity: 0, Right Lower Extremity: 0 - Psychiatric Exam Psychiatric exam: Normal Affect, Normal Mood - Skin Skin Exam: Dry, Intact Assessment and Plan (1) Aspiration pneumonia Status: Acute (2) COPD (chronic obstructive pulmonary disease) Status: Acute (3) COPD with exacerbation Status: Acute - Assessment and Plan (Free Text) Assessment: right hemiplegia, plan for physical, occupational, rec therapy subacute for 30 discussed Dc plan with patient
[2018-08-02] MEDS: Albuterol-Ipratrop 3 mg / 0.5 (3 ml) UD INH SCH ×6 (05:00→23:50)
[2018-08-02] MEDS: Lactobacillus Acidophilus 500 MU Cap PO SCH ×2 (08:29→16:14)
[2018-08-02] MEDS: Tmp-Smz 800 mg-160 mg DS Tab PO SCH (08:30)
[2018-08-02] MEDS: Magnesium Oxide 400 mg Tab UD PO SCH ×2 (08:31→16:20)
[2018-08-02] MEDS: guaiFENesin-DM 600-30 mg ER Tab PO SCH ×2 (08:32→16:20)
[2018-08-02] MEDS: Pantoprazole 40 mg EC Tab PO SCH (08:33)
[2018-08-02] MEDS: Emtricitabine-Tenofovir 200 mg-300 mg Tab PO SCH (08:34)
[2018-08-02] MEDS: Docusate-Senna 50 mg-8.6 mg Tab PO SCH ×2 (08:34→16:30)
--- NOTE | 2018-08-02 11:53 | CP.PCM.PN ---
Subjective - Date & Time of Evaluation Date of Evaluation: 08/02/18 Time of Evaluation: 11:52 - Subjective Subjective: Neurology Follow-Up Note: Mrs. Kilgore was evaluated this morning on the acute rehab unit. She states that she feels good. She is participating in therapy as tolerated. She denies any new complaints; no h/a, dizziness, visual changes, chest pain, sob, n/v/d. Chart reviewed. Objective - Vital Signs/Intake and Output Vital Signs (last 24 hours): Temp Pulse Resp BP Pulse Ox 97.5 F L 81 22 124/73 98 08/02/18 08:30 08/02/18 08:32 08/02/18 08:30 08/02/18 08:32 08/02/18 08:30 - Medications Medications: Current Medications Acetaminophen (Tylenol 325mg/10.15ml Ud) 650 mg PO Q4H PRN PRN Reason: Temperature Acetaminophen (Tylenol 325mg/10.15ml Ud) 650 mg PO Q6 PRN PRN Reason: Headache Acyclovir (Zovirax) 400 mg PO BID [facility]; Protocol Last Admin: 08/02/18 08:35 Dose: 400 mg Albuterol/Ipratropium (Duoneb 3 Mg/0.5 Mg (3 Ml) Ud) 3 ml INH RQ4 [facility] Last Admin: 08/02/18 11:29 Dose: 3 ml Amlodipine Besylate (Norvasc) 5 mg PO DAILY [facility] Last Admin: 08/02/18 08:32 Dose: 5 mg Aspirin (Ecotrin) 81 mg PO DAILY [facility] Last Admin: 08/02/18 08:31 Dose: 81 mg Atorvastatin Calcium (Lipitor) 20 mg PO DAILY@2200 [facility] Last Admin: 08/01/18 21:05 Dose: 20 mg Dolutegravir Sodium (Tivicay) 50 mg PO DAILY [facility]; Protocol Last Admin: 08/02/18 08:34 Dose: 50 mg Duloxetine HCl (Cymbalta) 30 mg PO BID [facility] Last Admin: 08/02/18 08:31 Dose: 30 mg Emtricitabine/Tenofovir (Truvada 200 Mg-300 Mg) 1 tab PO DAILY [facility]; Protocol Last Admin: 08/02/18 08:34 Dose: 1 tab Guaifenesin/Dextromethorphan (Mucinex-Dm 600-30 Mg) 2 tab PO BID [facility] Last Admin: 08/02/18 08:32 Dose: 2 tab Lactic Acid (Lac-Hydrin 12% Lotion (225 G)) 1 applic TOP Q12 [facility] Last Admin: 08/02/18 08:31 Dose: 1 applic Lactobacillus Acidophilus (Bacid Acidophilus) 1 cap PO BID [facility] Last Admin: 08/02/18 08:29 Dose: 1 cap Magnesium Oxide (Mag-Ox) 400 mg PO BID [facility] Last Admin: 08/02/18 08:31 Dose: 400 mg Pantoprazole Sodium (Protonix Ec Tab) 40 mg PO DAILY [facility] Last Admin: 08/02/18 08:33 Dose: 40 mg Prednisone (Prednisone Tab) 40 mg PO DAILY [facility] Last Admin: 08/02/18 08:33 Dose: 40 mg Quetiapine Fumarate (Seroquel) 200 mg PO HS [facility] Last Admin: 08/01/18 21:05 Dose: 200 mg Senna/Docusate Sodium (Senokot S 50 Mg-8.6 Mg) 2 tab PO BID [facility] Last Admin: 08/02/18 08:34 Dose: 2 tab Trimethoprim/Sulfamethoxazole (Bactrim Ds Tab) 1 tab PO DAILY [facility]; Protocol Last Admin: 08/02/18 08:30 Dose: 1 tab - Labs Labs: 07/28/18 05:30 07/28/18 05:30 - Constitutional Appears: Well, Non-toxic, No Acute Distress - Head Exam Head Exam: ATRAUMATIC, NORMAL INSPECTION, NORMOCEPHALIC - Eye Exam Eye Exam: EOMI, Normal appearance, PERRL Pupil Exam: NORMAL ACCOMODATION - ENT Exam ENT Exam: Mucous Membranes Moist - Neck Exam Neck Exam: Full ROM, Normal Inspection - Respiratory Exam Respiratory Exam: NORMAL BREATHING PATTERN - Extremities Exam Extremities Exam: absent: Calf Tenderness, Full ROM, Pedal Edema Additional comments: right sided hemiplegia - Back Exam Back Exam: Full ROM - Neurological Exam Neurological Exam: Alert, Awake, CN II-XII Intact Additional comments: -Although improving, pt is still aphasic and has difficulty comprehending what is told to her; she is also repetitive in her verbiage at times and responds appropriately other times. -Still has slight right sided facial droop -Strength to LUE and LLE 5/5 -Strength to RUE and RLE 0/5 -Hyperflexia b/l noted -Sensation intact b/l -No tremors noted - Psychiatric Exam Psychiatric exam: Normal Affect, Normal Mood - Skin Skin Exam: Normal Color Assessment and Plan (1) CVA (cerebral vascular accident) Assessment & Plan: Imaging reviewed: -CT Head (07/27/18): Limited examination due to extensive motion artifacts once again. No gross acute intracranial findings appreciated in the interval. Diffuse cerebral atrophy reiterated. Diminishing trace hemorrhage at the left external capsule noted clearly diminished in density indicating chronic state. -Continue ASA and statin. -We will consider a repeat CT Head if there is a suspicion for increased hemorrhage and/or acute changes in pt's mental status. -Continue rehab. -Continue other treatment and management for pneumonia per primary team. -Notify neuro team of any acute changes in pt's condition. Case discussed with Dr. Dennis Status: Acute
--- NOTE | 2018-08-02 16:23 | CP.PCM.PN ---
Subjective - Date & Time of Evaluation Date of Evaluation: 08/02/18 Time of Evaluation: 16:23 - Subjective Subjective: NO COUGH/SOB NO NEW PULMONARY SYMPTOMS OFF ANTIBIOTICS LUNGS-CLEAR PT/OT IN PROGRESS NO FURTHER PULMONARY INTERVENTION FOR NOW WILL SIGN OFF CASE AND SEE AGAIN AT YOUR REQUEST Objective - Vital Signs/Intake and Output Vital Signs (last 24 hours): Temp Pulse Resp BP Pulse Ox 97.5 F L 81 22 124/73 98 08/02/18 08:30 08/02/18 08:32 08/02/18 08:30 08/02/18 08:32 08/02/18 08:30 - Medications Medications: Current Medications Acetaminophen (Tylenol 325mg/10.15ml Ud) 650 mg PO Q4H PRN PRN Reason: Temperature Acetaminophen (Tylenol 325mg/10.15ml Ud) 650 mg PO Q6 PRN PRN Reason: Headache Acyclovir (Zovirax) 400 mg PO BID [facility]; Protocol Last Admin: 08/02/18 08:35 Dose: 400 mg Albuterol/Ipratropium (Duoneb 3 Mg/0.5 Mg (3 Ml) Ud) 3 ml INH RQ4 [facility] Last Admin: 08/02/18 15:28 Dose: Not Given Amlodipine Besylate (Norvasc) 5 mg PO DAILY [facility] Last Admin: 08/02/18 08:32 Dose: 5 mg Aspirin (Ecotrin) 81 mg PO DAILY [facility] Last Admin: 08/02/18 08:31 Dose: 81 mg Atorvastatin Calcium (Lipitor) 20 mg PO DAILY@2200 [facility] Last Admin: 08/01/18 21:05 Dose: 20 mg Dolutegravir Sodium (Tivicay) 50 mg PO DAILY [facility]; Protocol Last Admin: 08/02/18 08:34 Dose: 50 mg Duloxetine HCl (Cymbalta) 30 mg PO BID [facility] Last Admin: 08/02/18 08:31 Dose: 30 mg Emtricitabine/Tenofovir (Truvada 200 Mg-300 Mg) 1 tab PO DAILY [facility]; Protocol Last Admin: 08/02/18 08:34 Dose: 1 tab Guaifenesin/Dextromethorphan (Mucinex-Dm 600-30 Mg) 2 tab PO BID [facility] Last Admin: 08/02/18 08:32 Dose: 2 tab Lactic Acid (Lac-Hydrin 12% Lotion (225 G)) 1 applic TOP Q12 [facility] Last Admin: 08/02/18 08:31 Dose: 1 applic Lactobacillus Acidophilus (Bacid Acidophilus) 1 cap PO BID [facility] Last Admin: 08/02/18 08:29 Dose: 1 cap Magnesium Oxide (Mag-Ox) 400 mg PO BID [facility] Last Admin: 08/02/18 08:31 Dose: 400 mg Pantoprazole Sodium (Protonix Ec Tab) 40 mg PO DAILY [facility] Last Admin: 08/02/18 08:33 Dose: 40 mg Prednisone (Prednisone Tab) 20 mg PO DAILY [facility] Quetiapine Fumarate (Seroquel) 200 mg PO HS [facility] Last Admin: 08/01/18 21:05 Dose: 200 mg Senna/Docusate Sodium (Senokot S 50 Mg-8.6 Mg) 2 tab PO BID [facility] Last Admin: 08/02/18 08:34 Dose: 2 tab Trimethoprim/Sulfamethoxazole (Bactrim Ds Tab) 1 tab PO DAILY [facility]; Protocol Last Admin: 08/02/18 08:30 Dose: 1 tab - Labs Labs: 07/28/18 05:30 07/28/18 05:30
[2018-08-03] MEDS: Albuterol-Ipratrop 3 mg / 0.5 (3 ml) UD INH SCH ×5 (04:40→20:00)
[2018-08-03] MEDS: Tmp-Smz 800 mg-160 mg DS Tab PO SCH (08:27)
[2018-08-03] MEDS: Magnesium Oxide 400 mg Tab UD PO SCH ×2 (08:28→17:26)
[2018-08-03] MEDS: Pantoprazole 40 mg EC Tab PO SCH (08:28)
[2018-08-03] MEDS: Emtricitabine-Tenofovir 200 mg-300 mg Tab PO SCH (08:29)
[2018-08-03] MEDS: Docusate-Senna 50 mg-8.6 mg Tab PO SCH ×2 (08:30→17:26)
[2018-08-03] MEDS: guaiFENesin-DM 600-30 mg ER Tab PO SCH ×2 (08:30→17:26)
[2018-08-03] MEDS: Lactobacillus Acidophilus 500 MU Cap PO SCH ×2 (08:33→17:25)
--- NOTE | 2018-08-03 13:41 | CP.PCM.PN ---
Subjective - Date & Time of Evaluation Date of Evaluation: 08/03/18 Time of Evaluation: 10:40 - Subjective Subjective: Patient seen while undergoing therapy. Claimed she was doing well. Objective - Vital Signs/Intake and Output Vital Signs (last 24 hours): Temp Pulse Resp BP Pulse Ox 97.5 F L 70 20 124/75 99 08/03/18 08:15 08/03/18 08:28 08/03/18 08:15 08/03/18 08:28 08/03/18 08:15 - Medications Medications: Current Medications Acetaminophen (Tylenol 325mg/10.15ml Ud) 650 mg PO Q4H PRN PRN Reason: Temperature Acetaminophen (Tylenol 325mg/10.15ml Ud) 650 mg PO Q6 PRN PRN Reason: Headache Acyclovir (Zovirax) 400 mg PO BID [facility]; Protocol Last Admin: 08/03/18 08:28 Dose: 400 mg Albuterol/Ipratropium (Duoneb 3 Mg/0.5 Mg (3 Ml) Ud) 3 ml INH RQ4 [facility] Last Admin: 08/03/18 12:29 Dose: 3 ml Amlodipine Besylate (Norvasc) 5 mg PO DAILY [facility] Last Admin: 08/03/18 08:28 Dose: 5 mg Aspirin (Ecotrin) 81 mg PO DAILY [facility] Last Admin: 08/03/18 08:27 Dose: 81 mg Atorvastatin Calcium (Lipitor) 20 mg PO DAILY@2200 [facility] Last Admin: 08/02/18 21:57 Dose: 20 mg Dolutegravir Sodium (Tivicay) 50 mg PO DAILY [facility]; Protocol Last Admin: 08/03/18 08:31 Dose: 50 mg Duloxetine HCl (Cymbalta) 30 mg PO BID [facility] Last Admin: 08/03/18 08:29 Dose: 30 mg Emtricitabine/Tenofovir (Truvada 200 Mg-300 Mg) 1 tab PO DAILY [facility]; Protocol Last Admin: 08/03/18 08:29 Dose: 1 tab Guaifenesin/Dextromethorphan (Mucinex-Dm 600-30 Mg) 2 tab PO BID [facility] Last Admin: 08/03/18 08:30 Dose: 2 tab Lactic Acid (Lac-Hydrin 12% Lotion (225 G)) 1 applic TOP Q12 [facility] Last Admin: 08/03/18 08:29 Dose: 1 applic Lactobacillus Acidophilus (Bacid Acidophilus) 1 cap PO BID [facility] Last Admin: 08/03/18 08:33 Dose: 1 cap Magnesium Oxide (Mag-Ox) 400 mg PO BID [facility] Last Admin: 08/03/18 08:28 Dose: 400 mg Pantoprazole Sodium (Protonix Ec Tab) 40 mg PO DAILY [facility] Last Admin: 08/03/18 08:28 Dose: 40 mg Prednisone (Prednisone Tab) 20 mg PO DAILY [facility] Last Admin: 08/03/18 08:27 Dose: 20 mg Quetiapine Fumarate (Seroquel) 200 mg PO HS [facility] Last Admin: 08/02/18 21:57 Dose: 200 mg Senna/Docusate Sodium (Senokot S 50 Mg-8.6 Mg) 2 tab PO BID [facility] Last Admin: 08/03/18 08:30 Dose: 2 tab Trimethoprim/Sulfamethoxazole (Bactrim Ds Tab) 1 tab PO DAILY [facility]; Protocol Last Admin: 08/03/18 08:27 Dose: 1 tab - Labs Labs: 07/28/18 05:30 07/28/18 05:30 - Constitutional Appears: No Acute Distress - Head Exam Head Exam: ATRAUMATIC - Eye Exam Eye Exam: absent: Scleral icterus - ENT Exam ENT Exam: Mucous Membranes Moist - Neck Exam Neck Exam: absent: Meningismus - Respiratory Exam Respiratory Exam: absent: Rales, Rhonchi, Wheezes, Respiratory Distress - Cardiovascular Exam Cardiovascular Exam: REGULAR RHYTHM, +S1, +S2 - GI/Abdominal Exam GI & Abdominal Exam: Soft. absent: Tenderness - Rectal Exam Rectal Exam: Deferred - Neurological Exam Neurological Exam: Alert, Oriented x3 - Psychiatric Exam Psychiatric exam: Flat Affect - Skin Skin Exam: Dry, Intact Assessment and Plan - Assessment and Plan (Free Text) Assessment: 58 yo female with history of HIV, drug abuse and Bipolar DO presented with AMS and was found to have acute ischemic stroke with right sided weakness. Patient also had sepsis secondary to pneumonia and flu. She was managed with Levaquin and Vancomycin and Tamiflu. 1. Acute Ischemic Stroke with Right Hemiparesis continue BP management and statin and ASA continue PT/OT 2. Community Acquired Pneumonia completed 14 day course of IV Levaquin and Vancomycin continue Prednisone 20mg PO daily Duoneb Q4H 3. HIV HAART resumed (Tivicay 50mg daily and Truvada 200mg-300mg daily) CD4 = 135 Screen for opportunistic infections continue prophylaxis with Acyclovir and Bactrim ID consult, Dr Velazco 4. Chronic hepatitis C stable 5. Bipolar Disorder/Depression/Paranoia/Personality Disorder continue Cymbalta and Seroquel 6. DVT prophylaxis venodyne boots while in bed
--- NOTE | 2018-08-03 14:33 | CP.PCM.PN ---
Subjective - Date & Time of Evaluation Date of Evaluation: 08/03/18 Time of Evaluation: 10:00 - Subjective Subjective: no acute complaints at present Objective - Vital Signs/Intake and Output Vital Signs (last 24 hours): Temp Pulse Resp BP Pulse Ox 97.5 F L 70 20 124/75 99 08/03/18 08:15 08/03/18 08:28 08/03/18 08:15 08/03/18 08:28 08/03/18 08:15 - Medications Medications: Current Medications Acetaminophen (Tylenol 325mg/10.15ml Ud) 650 mg PO Q4H PRN PRN Reason: Temperature Acetaminophen (Tylenol 325mg/10.15ml Ud) 650 mg PO Q6 PRN PRN Reason: Headache Acyclovir (Zovirax) 400 mg PO BID [facility]; Protocol Last Admin: 08/03/18 08:28 Dose: 400 mg Albuterol/Ipratropium (Duoneb 3 Mg/0.5 Mg (3 Ml) Ud) 3 ml INH RQ4 [facility] Last Admin: 08/03/18 12:29 Dose: 3 ml Amlodipine Besylate (Norvasc) 5 mg PO DAILY [facility] Last Admin: 08/03/18 08:28 Dose: 5 mg Aspirin (Ecotrin) 81 mg PO DAILY [facility] Last Admin: 08/03/18 08:27 Dose: 81 mg Atorvastatin Calcium (Lipitor) 20 mg PO DAILY@2200 [facility] Last Admin: 08/02/18 21:57 Dose: 20 mg Dolutegravir Sodium (Tivicay) 50 mg PO DAILY [facility]; Protocol Last Admin: 08/03/18 08:31 Dose: 50 mg Duloxetine HCl (Cymbalta) 30 mg PO BID [facility] Last Admin: 08/03/18 08:29 Dose: 30 mg Emtricitabine/Tenofovir (Truvada 200 Mg-300 Mg) 1 tab PO DAILY [facility]; Protocol Last Admin: 08/03/18 08:29 Dose: 1 tab Guaifenesin/Dextromethorphan (Mucinex-Dm 600-30 Mg) 2 tab PO BID [facility] Last Admin: 08/03/18 08:30 Dose: 2 tab Lactic Acid (Lac-Hydrin 12% Lotion (225 G)) 1 applic TOP Q12 [facility] Last Admin: 08/03/18 08:29 Dose: 1 applic Lactobacillus Acidophilus (Bacid Acidophilus) 1 cap PO BID [facility] Last Admin: 08/03/18 08:33 Dose: 1 cap Magnesium Oxide (Mag-Ox) 400 mg PO BID [facility] Last Admin: 08/03/18 08:28 Dose: 400 mg Pantoprazole Sodium (Protonix Ec Tab) 40 mg PO DAILY [facility] Last Admin: 08/03/18 08:28 Dose: 40 mg Prednisone (Prednisone Tab) 20 mg PO DAILY [facility] Last Admin: 08/03/18 08:27 Dose: 20 mg Quetiapine Fumarate (Seroquel) 200 mg PO HS [facility] Last Admin: 08/02/18 21:57 Dose: 200 mg Senna/Docusate Sodium (Senokot S 50 Mg-8.6 Mg) 2 tab PO BID [facility] Last Admin: 08/03/18 08:30 Dose: 2 tab Trimethoprim/Sulfamethoxazole (Bactrim Ds Tab) 1 tab PO DAILY [facility]; Protocol Last Admin: 08/03/18 08:27 Dose: 1 tab - Labs Labs: 07/28/18 05:30 07/28/18 05:30 - Constitutional Appears: Well - Head Exam Head Exam: ATRAUMATIC, NORMAL INSPECTION, NORMOCEPHALIC - Eye Exam Eye Exam: EOMI, Normal appearance, PERRL Pupil Exam: NORMAL ACCOMODATION - ENT Exam ENT Exam: Mucous Membranes Moist, Normal Exam - Neck Exam Neck Exam: Normal Inspection - Respiratory Exam Respiratory Exam: Clear to Ausculation Bilateral, NORMAL BREATHING PATTERN - Cardiovascular Exam Cardiovascular Exam: REGULAR RHYTHM - GI/Abdominal Exam GI & Abdominal Exam: Normal Bowel Sounds - Rectal Exam Rectal Exam: NORMAL INSPECTION - Exam External exam: NORMAL EXTERNAL EXAM - Back Exam Back Exam: NORMAL INSPECTION - Neurological Exam Neurological Exam: Alert, Awake Neuro motor strength exam: Left Upper Extremity: 0, Left Lower Extremity: 0 - Psychiatric Exam Psychiatric exam: Normal Affect - Skin Skin Exam: Dry, Intact Assessment and Plan (1) Aspiration pneumonia Status: Acute (2) COPD (chronic obstructive pulmonary disease) Status: Acute (3) COPD with exacerbation Status: Acute - Assessment and Plan (Free Text) Assessment: hemiplegia plan for physical, and occupational therapy for range of motion, strengthening, transfers and gait training
[2018-08-04] MEDS: Albuterol-Ipratrop 3 mg / 0.5 (3 ml) UD INH SCH ×6 (00:18→19:17)
[2018-08-04] MEDS: Tmp-Smz 800 mg-160 mg DS Tab PO SCH (08:49)
[2018-08-04] MEDS: Lactobacillus Acidophilus 500 MU Cap PO SCH ×2 (08:49→17:42)
[2018-08-04] MEDS: Emtricitabine-Tenofovir 200 mg-300 mg Tab PO SCH (08:50)
[2018-08-04] MEDS: guaiFENesin-DM 600-30 mg ER Tab PO SCH ×2 (08:50→17:43)
[2018-08-04] MEDS: Docusate-Senna 50 mg-8.6 mg Tab PO SCH ×2 (08:50→17:43)
[2018-08-04] MEDS: Magnesium Oxide 400 mg Tab UD PO SCH ×2 (08:51→17:43)
[2018-08-04] MEDS: Pantoprazole 40 mg EC Tab PO SCH (08:51)
[2018-08-04 17:07] LABS: % CD4 (T HELPER CELL) 26 Percent (30-61); % CD8 (SUPPRESSOR T CELL) 59 Percent (12-42); ABSOLUTE CD4 CELLS 413 Cells/mcL (490-1740); ABSOLUTE CD8 CELLS 927 Cells/mcL (180-1170); ABSOLUTE LYMPHOCYTES 1579 Cells/mcL (850-3900); HELPER/SUPPRESSOR RATIO 0.45 Ratio (0.86-5.00)
[2018-08-05] MEDS: Albuterol-Ipratrop 3 mg / 0.5 (3 ml) UD INH SCH ×6 (00:44→19:01)
[2018-08-05] MEDS: guaiFENesin-DM 600-30 mg ER Tab PO SCH ×2 (08:15→16:05)
[2018-08-05] MEDS: Pantoprazole 40 mg EC Tab PO SCH (08:15)
[2018-08-05] MEDS: Emtricitabine-Tenofovir 200 mg-300 mg Tab PO SCH (08:15)
[2018-08-05] MEDS: Docusate-Senna 50 mg-8.6 mg Tab PO SCH ×2 (08:15→16:05)
[2018-08-05] MEDS: Magnesium Oxide 400 mg Tab UD PO SCH ×2 (08:16→16:06)
[2018-08-05] MEDS: Tmp-Smz 800 mg-160 mg DS Tab PO SCH (08:16)
[2018-08-05] MEDS: Lactobacillus Acidophilus 500 MU Cap PO SCH ×2 (08:18→16:05)
--- NOTE | 2018-08-05 10:51 | CP.PCM.PN ---
Subjective - Date & Time of Evaluation Date of Evaluation: 08/04/18 Time of Evaluation: 09:00 - Subjective Subjective: no acute complaints of pain Objective - Vital Signs/Intake and Output Vital Signs (last 24 hours): Temp Pulse Resp BP Pulse Ox 98.1 F 71 18 113/75 94 L 08/05/18 08:12 08/05/18 08:12 08/05/18 08:12 08/05/18 08:16 08/05/18 08:12 - Medications Medications: Current Medications Acetaminophen (Tylenol 325mg/10.15ml Ud) 650 mg PO Q4H PRN PRN Reason: Temperature Acetaminophen (Tylenol 325mg/10.15ml Ud) 650 mg PO Q6 PRN PRN Reason: Headache Acyclovir (Zovirax) 400 mg PO BID [facility]; Protocol Last Admin: 08/05/18 08:15 Dose: 400 mg Albuterol/Ipratropium (Duoneb 3 Mg/0.5 Mg (3 Ml) Ud) 3 ml INH RQ4 [facility] Last Admin: 08/05/18 07:32 Dose: Not Given Amlodipine Besylate (Norvasc) 5 mg PO DAILY [facility] Last Admin: 08/05/18 08:16 Dose: 5 mg Aspirin (Ecotrin) 81 mg PO DAILY [facility] Last Admin: 08/05/18 08:16 Dose: 81 mg Atorvastatin Calcium (Lipitor) 20 mg PO DAILY@2200 [facility] Last Admin: 08/04/18 21:24 Dose: 20 mg Dolutegravir Sodium (Tivicay) 50 mg PO DAILY [facility]; Protocol Last Admin: 08/05/18 08:15 Dose: 50 mg Duloxetine HCl (Cymbalta) 30 mg PO BID [facility] Last Admin: 08/05/18 08:16 Dose: 30 mg Emtricitabine/Tenofovir (Truvada 200 Mg-300 Mg) 1 tab PO DAILY [facility]; Protocol Last Admin: 08/05/18 08:15 Dose: 1 tab Guaifenesin/Dextromethorphan (Mucinex-Dm 600-30 Mg) 2 tab PO BID [facility] Last Admin: 08/05/18 08:15 Dose: 2 tab Lactic Acid (Lac-Hydrin 12% Lotion (225 G)) 1 applic TOP Q12 [facility] Last Admin: 08/05/18 08:14 Dose: 1 applic Lactobacillus Acidophilus (Bacid Acidophilus) 1 cap PO BID [facility] Last Admin: 08/05/18 08:18 Dose: 1 cap Magnesium Oxide (Mag-Ox) 400 mg PO BID [facility] Last Admin: 08/05/18 08:16 Dose: 400 mg Pantoprazole Sodium (Protonix Ec Tab) 40 mg PO DAILY [facility] Last Admin: 08/05/18 08:15 Dose: 40 mg Prednisone (Prednisone Tab) 20 mg PO DAILY [facility] Last Admin: 08/05/18 08:16 Dose: 20 mg Quetiapine Fumarate (Seroquel) 200 mg PO HS [facility] Last Admin: 08/04/18 21:27 Dose: 200 mg Senna/Docusate Sodium (Senokot S 50 Mg-8.6 Mg) 2 tab PO BID [facility] Last Admin: 08/05/18 08:15 Dose: 2 tab Trimethoprim/Sulfamethoxazole (Bactrim Ds Tab) 1 tab PO DAILY [facility]; Protocol Last Admin: 08/05/18 08:16 Dose: 1 tab - Labs Labs: 07/28/18 05:30 07/28/18 05:30 - Constitutional Appears: Well - Head Exam Head Exam: ATRAUMATIC, NORMAL INSPECTION, NORMOCEPHALIC - Eye Exam Eye Exam: EOMI, Normal appearance Pupil Exam: NORMAL ACCOMODATION, PERRL - ENT Exam ENT Exam: Mucous Membranes Moist - Neck Exam Neck Exam: Normal Inspection - Respiratory Exam Respiratory Exam: Clear to Ausculation Bilateral, NORMAL BREATHING PATTERN - Cardiovascular Exam Cardiovascular Exam: REGULAR RHYTHM - GI/Abdominal Exam GI & Abdominal Exam: Normal Bowel Sounds - Exam External exam: NORMAL EXTERNAL EXAM - Extremities Exam Extremities Exam: Normal Inspection - Neurological Exam Neurological Exam: Alert Neuro motor strength exam: Right Upper Extremity: 0, Right Lower Extremity: 0 - Psychiatric Exam Psychiatric exam: Normal Affect Assessment and Plan (1) Aspiration pneumonia Status: Acute (2) COPD (chronic obstructive pulmonary disease) Status: Acute (3) COPD with exacerbation Status: Acute - Assessment and Plan (Free Text) Assessment: right hemiplegia secondary to CVa plan for physical, occupational therapy, speech and rec therapy Plan for subacute rehab on the once finished with acute rehab
--- NOTE | 2018-08-05 12:55 | CP.PCM.PN ---
Subjective - Date & Time of Evaluation Date of Evaluation: 08/05/18 Time of Evaluation: 09:00 - Subjective Subjective: slow progress no fever Objective - Vital Signs/Intake and Output Vital Signs (last 24 hours): Temp Pulse Resp BP Pulse Ox 98.1 F 71 18 113/75 94 L 08/05/18 08:12 08/05/18 08:12 08/05/18 08:12 08/05/18 08:16 08/05/18 08:12 - Medications Medications: Current Medications Acetaminophen (Tylenol 325mg/10.15ml Ud) 650 mg PO Q4H PRN PRN Reason: Temperature Acetaminophen (Tylenol 325mg/10.15ml Ud) 650 mg PO Q6 PRN PRN Reason: Headache Acyclovir (Zovirax) 400 mg PO BID [facility]; Protocol Last Admin: 08/05/18 08:15 Dose: 400 mg Albuterol/Ipratropium (Duoneb 3 Mg/0.5 Mg (3 Ml) Ud) 3 ml INH RQ4 [facility] Last Admin: 08/05/18 11:09 Dose: Not Given Amlodipine Besylate (Norvasc) 5 mg PO DAILY [facility] Last Admin: 08/05/18 08:16 Dose: 5 mg Aspirin (Ecotrin) 81 mg PO DAILY [facility] Last Admin: 08/05/18 08:16 Dose: 81 mg Atorvastatin Calcium (Lipitor) 20 mg PO DAILY@2200 [facility] Last Admin: 08/04/18 21:24 Dose: 20 mg Dolutegravir Sodium (Tivicay) 50 mg PO DAILY [facility]; Protocol Last Admin: 08/05/18 08:15 Dose: 50 mg Duloxetine HCl (Cymbalta) 30 mg PO BID [facility] Last Admin: 08/05/18 08:16 Dose: 30 mg Emtricitabine/Tenofovir (Truvada 200 Mg-300 Mg) 1 tab PO DAILY [facility]; Protocol Last Admin: 08/05/18 08:15 Dose: 1 tab Guaifenesin/Dextromethorphan (Mucinex-Dm 600-30 Mg) 2 tab PO BID [facility] Last Admin: 08/05/18 08:15 Dose: 2 tab Lactic Acid (Lac-Hydrin 12% Lotion (225 G)) 1 applic TOP Q12 [facility] Last Admin: 08/05/18 08:14 Dose: 1 applic Lactobacillus Acidophilus (Bacid Acidophilus) 1 cap PO BID [facility] Last Admin: 08/05/18 08:18 Dose: 1 cap Magnesium Oxide (Mag-Ox) 400 mg PO BID [facility] Last Admin: 08/05/18 08:16 Dose: 400 mg Pantoprazole Sodium (Protonix Ec Tab) 40 mg PO DAILY [facility] Last Admin: 08/05/18 08:15 Dose: 40 mg Prednisone (Prednisone Tab) 20 mg PO DAILY [facility] Last Admin: 08/05/18 08:16 Dose: 20 mg Quetiapine Fumarate (Seroquel) 200 mg PO HS [facility] Last Admin: 08/04/18 21:27 Dose: 200 mg Senna/Docusate Sodium (Senokot S 50 Mg-8.6 Mg) 2 tab PO BID [facility] Last Admin: 08/05/18 08:15 Dose: 2 tab Trimethoprim/Sulfamethoxazole (Bactrim Ds Tab) 1 tab PO DAILY [facility]; Protocol Last Admin: 08/05/18 08:16 Dose: 1 tab - Labs Labs: 07/28/18 05:30 07/28/18 05:30 - Constitutional Appears: Non-toxic, Cachectic, Chronically Ill - Head Exam Head Exam: NORMOCEPHALIC - Eye Exam Eye Exam: absent: Scleral icterus - ENT Exam ENT Exam: Mucous Membranes Dry - Neck Exam Neck Exam: absent: Lymphadenopathy - Respiratory Exam Respiratory Exam: Decreased Breath Sounds - GI/Abdominal Exam GI & Abdominal Exam: Distended - Rectal Exam Rectal Exam: Deferred - Exam Exam: NORMAL INSPECTION - Extremities Exam Extremities Exam: absent: Pedal Edema - Back Exam Back Exam: absent: CVA tenderness (L), CVA tenderness (R) - Neurological Exam Neurological Exam: Alert, Awake Neuro motor strength exam: Left Upper Extremity: 4, Right Upper Extremity: 2/1, Left Lower Extremity: 4, Right Lower Extremity: 2/1 - Psychiatric Exam Psychiatric exam: Depressed - Skin Skin Exam: Dry Assessment and Plan (1) Aspiration pneumonia Status: Acute (2) COPD (chronic obstructive pulmonary disease) Status: Acute (3) Cerebrovascular accident (CVA) with right hemiparesis Status: Acute (4) Depression Status: Acute (5) HIV (human immunodeficiency virus infection) Status: Acute (6) Rhabdomyolysis Status: Acute - Assessment and Plan (Free Text) Assessment: CD4 now 413 and Viral Load undetectable Cont HAART rx
[2018-08-06] MEDS: Albuterol-Ipratrop 3 mg / 0.5 (3 ml) UD INH SCH ×7 (00:10→23:54)
[2018-08-06] MEDS: Lactobacillus Acidophilus 500 MU Cap PO SCH ×2 (08:06→16:16)
[2018-08-06] MEDS: Tmp-Smz 800 mg-160 mg DS Tab PO SCH (08:07)
[2018-08-06] MEDS: Magnesium Oxide 400 mg Tab UD PO SCH ×2 (08:08→16:17)
[2018-08-06] MEDS: guaiFENesin-DM 600-30 mg ER Tab PO SCH ×2 (08:08→16:17)
[2018-08-06] MEDS: Pantoprazole 40 mg EC Tab PO SCH (08:09)
[2018-08-06] MEDS: Emtricitabine-Tenofovir 200 mg-300 mg Tab PO SCH (08:09)
[2018-08-06] MEDS: Docusate-Senna 50 mg-8.6 mg Tab PO SCH ×2 (08:09→16:17)
--- NOTE | 2018-08-06 11:55 | CP.PCM.PN ---
Subjective - Date & Time of Evaluation Date of Evaluation: 08/06/18 Time of Evaluation: 10:45 - Subjective Subjective: Patient seen and examined. Claimed she felt fine and had no complaint. Objective - Vital Signs/Intake and Output Vital Signs (last 24 hours): Temp Pulse Resp BP Pulse Ox 98.2 F 71 18 129/83 96 08/06/18 08:04 08/06/18 08:08 08/06/18 08:04 08/06/18 08:08 08/06/18 08:04 - Medications Medications: Current Medications Acetaminophen (Tylenol 325mg/10.15ml Ud) 650 mg PO Q4H PRN PRN Reason: Temperature Acetaminophen (Tylenol 325mg/10.15ml Ud) 650 mg PO Q6 PRN PRN Reason: Headache Acyclovir (Zovirax) 400 mg PO BID [facility]; Protocol Last Admin: 08/06/18 08:10 Dose: 400 mg Albuterol/Ipratropium (Duoneb 3 Mg/0.5 Mg (3 Ml) Ud) 3 ml INH RQ4 [facility] Last Admin: 08/06/18 11:10 Dose: Not Given Amlodipine Besylate (Norvasc) 5 mg PO DAILY [facility] Last Admin: 08/06/18 08:08 Dose: 5 mg Aspirin (Ecotrin) 81 mg PO DAILY [facility] Last Admin: 08/06/18 08:07 Dose: 81 mg Atorvastatin Calcium (Lipitor) 20 mg PO DAILY@2200 [facility] Last Admin: 08/05/18 21:41 Dose: 20 mg Dolutegravir Sodium (Tivicay) 50 mg PO DAILY [facility]; Protocol Last Admin: 08/06/18 08:09 Dose: 50 mg Duloxetine HCl (Cymbalta) 30 mg PO BID [facility] Last Admin: 08/06/18 08:07 Dose: 30 mg Emtricitabine/Tenofovir (Truvada 200 Mg-300 Mg) 1 tab PO DAILY [facility]; Protocol Last Admin: 08/06/18 08:09 Dose: 1 tab Guaifenesin/Dextromethorphan (Mucinex-Dm 600-30 Mg) 2 tab PO BID [facility] Last Admin: 08/06/18 08:08 Dose: 2 tab Lactic Acid (Lac-Hydrin 12% Lotion (225 G)) 1 applic TOP Q12 [facility] Last Admin: 08/06/18 08:08 Dose: 1 applic Lactobacillus Acidophilus (Bacid Acidophilus) 1 cap PO BID [facility] Last Admin: 08/06/18 08:06 Dose: 1 cap Magnesium Oxide (Mag-Ox) 400 mg PO BID [facility] Last Admin: 08/06/18 08:08 Dose: 400 mg Pantoprazole Sodium (Protonix Ec Tab) 40 mg PO DAILY [facility] Last Admin: 08/06/18 08:09 Dose: 40 mg Prednisone (Prednisone Tab) 20 mg PO DAILY [facility] Last Admin: 08/06/18 08:09 Dose: 20 mg Quetiapine Fumarate (Seroquel) 200 mg PO HS [facility] Last Admin: 08/05/18 21:40 Dose: 200 mg Senna/Docusate Sodium (Senokot S 50 Mg-8.6 Mg) 2 tab PO BID [facility] Last Admin: 08/06/18 08:09 Dose: 2 tab Trimethoprim/Sulfamethoxazole (Bactrim Ds Tab) 1 tab PO DAILY [facility]; Protocol Last Admin: 08/06/18 08:07 Dose: 1 tab - Labs Labs: 07/28/18 05:30 07/28/18 05:30 - Constitutional Appears: No Acute Distress - Head Exam Head Exam: ATRAUMATIC - Eye Exam Eye Exam: absent: Scleral icterus - ENT Exam ENT Exam: Mucous Membranes Moist - Neck Exam Neck Exam: absent: Meningismus - Respiratory Exam Respiratory Exam: absent: Rales, Rhonchi, Wheezes, Respiratory Distress - Cardiovascular Exam Cardiovascular Exam: REGULAR RHYTHM, +S1, +S2 - GI/Abdominal Exam GI & Abdominal Exam: Soft. absent: Tenderness - Rectal Exam Rectal Exam: Deferred - Extremities Exam Extremities Exam: absent: Full ROM (right limbs flaccid) - Neurological Exam Neurological Exam: Alert, Oriented x3 - Psychiatric Exam Psychiatric exam: Normal Affect - Skin Skin Exam: Dry, Intact Assessment and Plan - Assessment and Plan (Free Text) Assessment: 58 yo female with history of HIV, drug abuse and Bipolar DO presented with AMS and was found to have acute ischemic stroke with right sided weakness. Patient also had sepsis secondary to pneumonia and flu. She was managed with Levaquin and Vancomycin and Tamiflu. 1. Acute Ischemic Stroke with Right Hemiparesis continue BP management and statin and ASA doing well with PT/OT 2. Community Acquired Pneumonia completed 14 day course of IV Levaquin and Vancomycin continue Prednisone 20mg PO daily Duoneb Q4H 3. HIV HAART resumed (Tivicay 50mg daily and Truvada 200mg-300mg daily) CD4 = 135 Screen for opportunistic infections continue prophylaxis with Acyclovir and Bactrim ID consult, Dr Velazco 4. Chronic hepatitis C stable 5. Bipolar Disorder/Depression/Paranoia/Personality Disorder continue Cymbalta and Seroquel 6. DVT prophylaxis venodyne boots while in bed
[2018-08-07] MEDS: Albuterol-Ipratrop 3 mg / 0.5 (3 ml) UD INH SCH ×6 (04:45→23:34)
[2018-08-07] MEDS: Lactobacillus Acidophilus 500 MU Cap PO SCH ×2 (08:18→16:22)
[2018-08-07] MEDS: guaiFENesin-DM 600-30 mg ER Tab PO SCH ×2 (08:19→16:23)
[2018-08-07] MEDS: Pantoprazole 40 mg EC Tab PO SCH (08:19)
[2018-08-07] MEDS: Magnesium Oxide 400 mg Tab UD PO SCH ×2 (08:19→16:22)
[2018-08-07] MEDS: Tmp-Smz 800 mg-160 mg DS Tab PO SCH (08:20)
[2018-08-07] MEDS: Docusate-Senna 50 mg-8.6 mg Tab PO SCH ×2 (08:21→16:23)
[2018-08-07] MEDS: Emtricitabine-Tenofovir 200 mg-300 mg Tab PO SCH (08:23)
--- NOTE | 2018-08-07 16:30 | CP.PCM.PN ---
Subjective - Date & Time of Evaluation Date of Evaluation: 08/07/18 Time of Evaluation: 12:00 - Subjective Subjective: no acute complaints smiling in wheelchair excited about taking a shower. Objective - Vital Signs/Intake and Output Vital Signs (last 24 hours): Temp Pulse Resp BP Pulse Ox 97.6 F 75 21 116/67 100 08/07/18 08:12 08/07/18 08:22 08/07/18 08:12 08/07/18 08:22 08/07/18 08:12 - Medications Medications: Current Medications Acetaminophen (Tylenol 325mg/10.15ml Ud) 650 mg PO Q4H PRN PRN Reason: Temperature Acetaminophen (Tylenol 325mg/10.15ml Ud) 650 mg PO Q6 PRN PRN Reason: Headache Acyclovir (Zovirax) 400 mg PO BID [facility]; Protocol Last Admin: 08/07/18 16:23 Dose: 400 mg Albuterol/Ipratropium (Duoneb 3 Mg/0.5 Mg (3 Ml) Ud) 3 ml INH RQ4 [facility] Last Admin: 08/07/18 15:27 Dose: Not Given Amlodipine Besylate (Norvasc) 5 mg PO DAILY [facility] Last Admin: 08/07/18 08:22 Dose: 5 mg Aspirin (Ecotrin) 81 mg PO DAILY [facility] Last Admin: 08/07/18 08:21 Dose: 81 mg Atorvastatin Calcium (Lipitor) 20 mg PO DAILY@2200 [facility] Last Admin: 08/06/18 21:38 Dose: 20 mg Dolutegravir Sodium (Tivicay) 50 mg PO DAILY [facility]; Protocol Last Admin: 08/07/18 08:21 Dose: 50 mg Duloxetine HCl (Cymbalta) 30 mg PO BID [facility] Last Admin: 08/07/18 16:23 Dose: 30 mg Emtricitabine/Tenofovir (Truvada 200 Mg-300 Mg) 1 tab PO DAILY [facility]; Protocol Last Admin: 08/07/18 08:23 Dose: 1 tab Guaifenesin/Dextromethorphan (Mucinex-Dm 600-30 Mg) 2 tab PO BID [facility] Last Admin: 08/07/18 16:23 Dose: 2 tab Lactic Acid (Lac-Hydrin 12% Lotion (225 G)) 1 applic TOP Q12 [facility] Last Admin: 08/07/18 08:18 Dose: 1 appl Lactobacillus Acidophilus (Bacid Acidophilus) 1 cap PO BID [facility] Last Admin: 08/07/18 16:22 Dose: 1 cap Magnesium Oxide (Mag-Ox) 400 mg PO BID [facility] Last Admin: 08/07/18 16:22 Dose: 400 mg Pantoprazole Sodium (Protonix Ec Tab) 40 mg PO DAILY [facility] Last Admin: 08/07/18 08:19 Dose: 40 mg Prednisone (Prednisone Tab) 20 mg PO DAILY [facility] Last Admin: 08/07/18 08:20 Dose: 20 mg Quetiapine Fumarate (Seroquel) 200 mg PO HS [facility] Last Admin: 08/06/18 21:38 Dose: 200 mg Senna/Docusate Sodium (Senokot S 50 Mg-8.6 Mg) 2 tab PO BID [facility] Last Admin: 08/07/18 16:23 Dose: 2 tab Trimethoprim/Sulfamethoxazole (Bactrim Ds Tab) 1 tab PO DAILY [facility]; Protocol Last Admin: 08/07/18 08:20 Dose: 1 tab - Labs Labs: 07/28/18 05:30 07/28/18 05:30 - Constitutional Appears: Well - Head Exam Head Exam: ATRAUMATIC, NORMAL INSPECTION, NORMOCEPHALIC - Eye Exam Eye Exam: EOMI, Normal appearance Pupil Exam: NORMAL ACCOMODATION, PERRL - ENT Exam ENT Exam: Mucous Membranes Moist, Normal Exam - Neck Exam Neck Exam: Full ROM - Respiratory Exam Respiratory Exam: Clear to Ausculation Bilateral, NORMAL BREATHING PATTERN - Cardiovascular Exam Cardiovascular Exam: REGULAR RHYTHM - GI/Abdominal Exam GI & Abdominal Exam: Soft, Normal Bowel Sounds - Rectal Exam Rectal Exam: NORMAL INSPECTION - Exam External exam: NORMAL EXTERNAL EXAM - Extremities Exam Extremities Exam: Full ROM, Normal Capillary Refill, Normal Inspection - Back Exam Back Exam: NORMAL INSPECTION - Neurological Exam Neurological Exam: Alert, Awake Neuro motor strength exam: Right Upper Extremity: 0, Right Lower Extremity: 0 - Psychiatric Exam Psychiatric exam: Normal Affect - Skin Skin Exam: Normal Color Assessment and Plan (1) Aspiration pneumonia Status: Acute (2) COPD (chronic obstructive pulmonary disease) Status: Acute (3) COPD with exacerbation Status: Acute - Assessment and Plan (Free Text) Assessment: right hemiplegia, patient for shower today. Physical, occupational, rec and speech therapy Team conference for tomorrow
[2018-08-08] MEDS: Albuterol-Ipratrop 3 mg / 0.5 (3 ml) UD INH SCH ×5 (05:39→20:06)
[2018-08-08] MEDS: Lactobacillus Acidophilus 500 MU Cap PO SCH ×2 (08:09→16:11)
[2018-08-08] MEDS: Tmp-Smz 800 mg-160 mg DS Tab PO SCH (08:10)
[2018-08-08] MEDS: Magnesium Oxide 400 mg Tab UD PO SCH ×2 (08:12→16:11)
[2018-08-08] MEDS: Pantoprazole 40 mg EC Tab PO SCH (08:15)
[2018-08-08] MEDS: Docusate-Senna 50 mg-8.6 mg Tab PO SCH ×2 (08:15→16:12)
[2018-08-08] MEDS: Emtricitabine-Tenofovir 200 mg-300 mg Tab PO SCH (08:16)
[2018-08-08] MEDS: guaiFENesin-DM 600-30 mg ER Tab PO SCH ×2 (11:12→16:12)
--- NOTE | 2018-08-08 11:39 | CP.PCM.PN ---
Subjective - Date & Time of Evaluation Date of Evaluation: 08/08/18 Time of Evaluation: 11:38 - Subjective Subjective: Neurology Follow-Up Note: Mrs. Kilgore was evaluated this morning on the acute rehab unit. She admits to feeling good and offers no complaints. She is participating in therapy as tolerated. Chart reviewed. She is for possible d/c to [facility] later this week. Denies h/a, dizziness, visual changes, chest pain, sob, n/v/d. Objective - Vital Signs/Intake and Output Vital Signs (last 24 hours): Temp Pulse Resp BP Pulse Ox 98.4 F 74 23 113/70 97 08/08/18 08:06 08/08/18 08:13 08/08/18 08:06 08/08/18 08:13 08/08/18 08:06 - Medications Medications: Current Medications Acetaminophen (Tylenol 325mg/10.15ml Ud) 650 mg PO Q4H PRN PRN Reason: Temperature Acetaminophen (Tylenol 325mg/10.15ml Ud) 650 mg PO Q6 PRN PRN Reason: Headache Acyclovir (Zovirax) 400 mg PO BID [facility]; Protocol Last Admin: 08/08/18 08:16 Dose: 400 mg Albuterol/Ipratropium (Duoneb 3 Mg/0.5 Mg (3 Ml) Ud) 3 ml INH RQ4 [facility] Last Admin: 08/08/18 11:24 Dose: Not Given Amlodipine Besylate (Norvasc) 5 mg PO DAILY [facility] Last Admin: 08/08/18 08:13 Dose: 5 mg Aspirin (Ecotrin) 81 mg PO DAILY [facility] Last Admin: 08/08/18 08:10 Dose: 81 mg Atorvastatin Calcium (Lipitor) 20 mg PO DAILY@2200 [facility] Last Admin: 08/07/18 21:09 Dose: 20 mg Dolutegravir Sodium (Tivicay) 50 mg PO DAILY [facility]; Protocol Last Admin: 08/08/18 08:15 Dose: 50 mg Duloxetine HCl (Cymbalta) 30 mg PO BID [facility] Last Admin: 08/08/18 08:10 Dose: 30 mg Emtricitabine/Tenofovir (Truvada 200 Mg-300 Mg) 1 tab PO DAILY [facility]; Protocol Last Admin: 08/08/18 08:16 Dose: 1 tab Guaifenesin/Dextromethorphan (Mucinex-Dm 600-30 Mg) 2 tab PO BID [facility] Last Admin: 08/08/18 11:12 Dose: 2 tab Lactic Acid (Lac-Hydrin 12% Lotion (225 G)) 1 applic TOP Q12 [facility] Last Admin: 08/08/18 08:11 Dose: 1 appl Lactobacillus Acidophilus (Bacid Acidophilus) 1 cap PO BID [facility] Last Admin: 08/08/18 08:09 Dose: 1 cap Magnesium Oxide (Mag-Ox) 400 mg PO BID [facility] Last Admin: 08/08/18 08:12 Dose: 400 mg Pantoprazole Sodium (Protonix Ec Tab) 40 mg PO DAILY [facility] Last Admin: 08/08/18 08:15 Dose: 40 mg Prednisone (Prednisone Tab) 10 mg PO DAILY [facility] Stop: 08/10/18 09:01 Quetiapine Fumarate (Seroquel) 200 mg PO HS [facility] Last Admin: 08/07/18 21:09 Dose: 200 mg Senna/Docusate Sodium (Senokot S 50 Mg-8.6 Mg) 2 tab PO BID [facility] Last Admin: 08/08/18 08:15 Dose: 2 tab Trimethoprim/Sulfamethoxazole (Bactrim Ds Tab) 1 tab PO DAILY [facility]; Protocol Last Admin: 08/08/18 08:10 Dose: 1 tab - Labs Labs: 07/28/18 05:30 07/28/18 05:30 - Constitutional Appears: Well, Non-toxic, No Acute Distress - Head Exam Head Exam: ATRAUMATIC, NORMAL INSPECTION, NORMOCEPHALIC - Eye Exam Eye Exam: EOMI, Normal appearance, PERRL Pupil Exam: NORMAL ACCOMODATION, PERRL - ENT Exam ENT Exam: Mucous Membranes Moist, Normal Exam - Neck Exam Neck Exam: Full ROM, Normal Inspection - Respiratory Exam Respiratory Exam: NORMAL BREATHING PATTERN - GI/Abdominal Exam GI & Abdominal Exam: Soft - Extremities Exam Extremities Exam: absent: Calf Tenderness, Full ROM, Pedal Edema Additional comments: right hemiplegia - Back Exam Back Exam: Full ROM, NORMAL INSPECTION - Neurological Exam Neurological Exam: Alert, Awake, CN II-XII Intact. absent: Reflexes Normal Neuro motor strength exam: Left Upper Extremity: 5, Right Upper Extremity: 0, Left Lower Extremity: 5, Right Lower Extremity: 0 Additional comments: Although improving compared to last week, she is still slightly aphasic and has some difficulty comprehending what is told to her; she is also still repetitive in her verbiage at times and responds appropriately other times. Slight right facial droop Right hemiplegia Hyperflexia still noted b/l Sensation intact b/l No tremors - Psychiatric Exam Psychiatric exam: Normal Affect, Normal Mood - Skin Skin Exam: Normal Color Assessment and Plan (1) CVA (cerebral vascular accident) Assessment & Plan: Imaging reviewed: -CT Head (07/27/18): Limited examination due to extensive motion artifacts once again. No gross acute intracranial findings appreciated in the interval. Diffuse cerebral atrophy reiterated. Diminishing trace hemorrhage at the left external capsule noted clearly diminished in density indicating chronic state. -Continue ASA and statin while in acute rehab and upon d[facility]. -Consider a repeat CT Head if there is a suspicion for increased hemorrhage and/or acute changes in pt's mental status. -Continue other treatment and management per primary team. -Notify neuro team of any acute changes in pt's condition. Case discussed with Dr. Jamison Status: Acute
--- NOTE | 2018-08-08 13:05 | PCM.PSYTMC ---
Acute Rehab Team Conference - - Vital Signs: Vital Signs (Last 8 Hours): Vital Signs 08/08/18 08/08/18 08:06 08:13 Temperature 98.4 F Pulse Rate 74 74 Respiratory 23 Rate Blood Pressure 113/70 113/70 O2 Sat by Pulse 97 Oximetry Pain: 0 - Precautions: Precautions: Fall Prevention, Aspiration, Pressure Ulcer - Medications/Other Issues: Comment: medication teaching. aspiration precautions - NTL - Consults: Comment: Attending: Dr. Moreira. Physiatry: Dr. Lucy Dunlap. ID: Dr. Velazco. Pulmonary: Dr. Stahl. Neuro: . Podiatry Consult ( complete 08/01/18) - Skin: Incision Site: none Incision: Dehiscence - Toileting: Toileting: Maximal Assistance - Bladder Management: Bladder Pattern: Incontinent Voiding Method: Diaper Bladder Management: Maximal Assistance Other Intervention:: with period of incontinence - Transfers: Transfers: Minimal Assistance - ADL's: ADL's: Maximal Assistance - Pain Management: Other Intervention:: pt usually denies pain - Patient/Family Teaching: Other Intervention:: Medication teaching, safety, dysphagia precautions - Goals/Time Frame: Comment: Falls free - Provider: Registered Nurse:: Dinah Honeycutt Physical Therapy - Bed Mobility Bed Mobility: Verbal Cues, Moderate Assistance - Transfers Wheelchair to Mat: Verbal Cues, Moderate Assistance Sit to Stand: Verbal Cues, Moderate Assistance - Ambulation Level of Assistance: Moderate Assistance, Maximum Assistance Distance (ft.): 4 Assistive Devices: Wide base quad cane Orthoses: RUE giv-kiah. RLE dorisflexion Comment: -4-8 feet with WBQC before patient sits down without warning. -10 feet on wall bar before sitting down. -RUE giv-kiah sling, RLE DF wrap. -close WC for all trials. -patient requires mod assist for weight shifting and trunk control. -max A for RLE progression and mod/max A for stability of RLe during stance. -patient continues to demonstrates impaired sequencing with impaired attention and impaired safety; continues to take rapid steps with LLE and takes step with LLE while weight is still on the extremity leading to impaired balance. *PT feels patient could do additional active control on RLE but is limited by cognitive status, ability to follow commands and motivation - Stair Negotiation Stairs: Level of Assistance: Not Tested - Standing Balance Static Stand: Moderate Assistance - Pain Pain (assessed during therapy session): 0 Comment: pt denies - Insight/Carryover Insight/Carryover: Poor - Patient/Family Education Comment: -patient with poor carry over and fair to poor motivation during therapy. -education to parents as they are present on therapy schedule, therapy goals, mobility, safety, POC, stroke recovery. -patient educated on the above as well as self-releasing seatbelt, safety, imortance of OOB and safety - Assessment/Plan Assessment: Ms. Kilgore continues to be limited by impaired command following, decreased motivation and decreased volitional control on the R side. Pt has poor tolerance to active standing and sits down without warning during both standing and gait activities. Patient remains with clonus noted at the distal RLE but limited other active muscle return in other regions. Patient requires frequent rest breaks and constant cues for attention. Pt continues to require mod to max A for all mobility. PT continues to recommend skilled therapy to continue addressing skilled needs s/p CVA. PT recommends discharge to [facility] to continue addressing skilled needs prior to community discharge with emphasis on reduction of burden of care. - Goals Timeframe: 7 days Goals: -negotiate 4 steps with max A with single L rail. -propel manual WC with LUE and LLE x 150 feet with supervision. -ambulate 25 feet with WBQC with mod A. -sit to/from stand with CGA. -SPT with Mikayla with WBQC. -CGA for bed/mat mobility - Provider Physical Therapist:: Leann Keita License Number:: [id number] Occupational Therapy - Arousal/Attention/Orientation Level of Consciousness: Awake, Alert Patient Orientation: Person Assessment Comment: -impaired ability to sustain/split attention. -impaired ability to attend/follow commands. -+ impulsivity. -aspiration, fall, seizure & cardiac precautions - ADL/IADL Self Feeding: Supervision, Verbal Cues, Set-up Help Grooming: Verbal Cues, Set-up Help, Moderate Assistance Bathing-Upper Ext: Verbal Cues, Set-up Help, Moderate Assistance Bathing-Lower Ext: Verbal Cues, Set-up Help, Maximum Assistance, Dependent Dressing-Upper Ext: Verbal Cues, Set-up Help, Moderate Assistance Dressing-Lower Ext: Verbal Cues, Set-up Help, Moderate Assistance, Maximum Assistance Homemaking: Not Applicable Comment: seated on shower bench for shower - Sitting Balance Static Sitting: Supervision Dynamic Sitting: Reaches across midline, Reaches out of base of support, Reaches within base of support, Contact Guard Assist, Minimal Assistance Comment: seated unsupprted @ edge of bed - Transfers Wheelchair to Bed Transfers: Verbal Cues, Moderate Assistance Toilet Transfers: Verbal Cues, Set-up Help, Moderate Assistance Comment: *shower chair/bench with mod assist and verbal cues. * needs verbal/tactile to attend/complete tasks - Wheelchair Management Level of Assistance: Supervision, Verbal Cues, Contact Guard Distance (ft.): 150 - Upper Extremity Status Right Upper Extremity Comment: PROM is WFLS, but no AROM noted in RUE; 0/5 Left Upper Extremity Comment: AROM is WFLS - Pain Pain (assessed during therapy session): 0 - Insight/Carryover Insight/Carryover: Fair - Patient/Family Education Comment: -self carel, transfers/mobility training uisng adaptive/compensatorys strategies. -w/c management/propulsion, attending to obstacles. -bed positioning/RUE management--laptray in w/c. -encourage out of bed activities, adl participation as much as possible. -review use of call olvera, safety for fall prevention. -pt with limited carryover 2' cognitive, psycho-social & physical limitations - Assessment/Plan Assessment: Pt continues to be limited by impaired cognition, impaired attention, inability to follow commands, impaired motor control RUE/RLE(no active movement noted), + impulsivity, impaired standing balance/tolerance, impaired spatial relations, impaired R attention, impaired sustained/shift atttention--thus needing assistance/cues with activities. Pt will likely need GUY 2' multiple complex deficits(cognitive, physical & psycho-social). [ End ] - Goals Timeframe: 8 days Comment: *FEEDING: Distant S/setup. *GROOMING: Minimal assist and verbal cues seated. *UPPER BODY DRESSING: Minimal & verbal cues adina-techniques. *LOWER BODY DRESSING: Moderate assist and verbal cues with assistive devices. *TOILETING:Moderate assist and verbal cues with assistive devices. *W/C MANAGEMENT/PROPULSION: propel w/c 150 feet with Superviisionand verbal cues. *RUE STRENGTH: increase to 2-/5 throughout so can use as stabilizer during self care, functional mobility. *BATHING: Max assist & verbal cues seated. *TRANSFERS:<->bed, commode, w/c & other surfaces with Min assist and verbal cues - Provider Occupational Therapist:: Shelby Beltran License Number: [id number] Speech Therapy - Consult Information Patient on Program: Yes Medical Diagnosis: CVA Treatment Diagnosis: -moderate receptive/expressive aphasia. -mod-severe dysarthria. -moderate pharyngeal dysphagia - Assessment Dysphagia/Swallowing Impairment: Moderate - Plan Assessment: Tanya Kilgore continues to present with 1.) moderate receptive/expressive aphasia characterized by difficulty following 1-2+ step commands, difficulty answering more complex yes/no and open-ended questions, impaired word finding, and impaired sentence formation/thought organization; 2.) moderate-severe dysarthria characterized by impaired oral motor strength/ROM and impaired respiration for phonation resulting in impaired articulatory precision negatively impacting intelligibility at the word/phrase level; and 3.) moderate pharyngeal dysphagia (per MBS 07/24/18) characterized by intermittent mildly delayed swallow initiation, impaired pharyngeal clearance, and impaired airway protection with deep laryngeal penetration with thin liquids intermittently with no sensory response resulting in eventual silent aspiration of thin liquids; no penetration/aspiration observe with nectar, puree, or regular solids on MBS. Pt has presented with impaired motivation to participate, impaired attention to tx tasks, and cognitive deficits/impaired direction following which are all barriers to improvement in therapy. Pt would benefit from continued speech and dysphagia tx with VitalStim (NMES) for improved swallow function and airway protection, as well as improved communicative effectiveness. Plan: Continue Dysphagia Therapy, Continue Speech/Language Therapy Frequency: 3-5 times per week Duration: 1 week Goals/Timeframe: Please see progress note dated 08/06/18 for updated goals/POC Recommendations: -Continue speech and dysphagia tx 3-5x/week. -Maintain regular solids/nectar thick liquids - Provider Therapist: Pamella Cole License Number: [id number] Recreational Therapy - Participation Participation: Participates in Individual and/or Group Sessions - Attendance Attendance: 3-5 times per week - Activities Leisure Activities: Cards and Games - Socialization Level of Socialization: Initiates/interacts with caregivers but not with peer, Isolate by choice, Responds freely, but does not initiate, Requires 1:1 guidance to respond - Diversional Time Diversional Time: television - Assessment Assessment/Plan: Pt has demonstrated decrease in her progress and participation throughout this past week. Pt requires max A with all leisure tasks for [id number] direction following and redirection to task. Pt presents with poor attention to task, impaired command following, impaired direction following, decrease visual awareness to the R side, and overall decrease participation and arousal level to complete any leisure tasks during recreation therapy sessions. Pt presents with poor number recognition and identification and item recognition and identification. Recently, pt would respond in sounds and what would be considered "baby talk" when asked to initiate. Pt's barriers to particpation is language deficits, decrease arousal, impaired direction following, and overall poor motivation. Problems Currently Limiting Participation: Pt will be encouraged to participate in 1:1 and group recreaton therapy sessions 3-5x week to improve object and number recognition, command following, leisure awareness level, activity tolerance level, and overall mood state. Goals and Time Frame: Pt will be encouraged to participate in 1:1 and group recreaton therapy sessions 3-5x week to improve object and number recognition, command following, leisure awareness level, activity tolerance level, and overall mood state. - Provider Therapist: Cely Lucio Nutrition - Current Diet Current Diet/Supplement/Feedings: regular diet nectar thick liquids ensure pudding 4 ounces 3 per day - Appetite Percent Meal Consumed: 50-74% - Assessment/Goals/Time Frame Assessments/Goals/Time Frame: Pt at high nutritional risk. goal: 1. Pt to consume 75-100% of meals(not met, continue). 2. Deter wt loss (unmet, continue). Follow-up due on 08/08/2018 - Provider Provider: Malinda Ledesma Case Management - Psychosocial Assessment Support Systems: Carlo Kilgore (father)- [phone] Psychological Interventions/Needs: Patient is AAO with cognitive impairments. Discharge Concerns: Patient has two flights of stairs to navigate at home and pt's parents are eldery and unable to provide excess hands-on help. Patient is being referred for GUY with a possible transition into LTC. Patient/Family Meeting: CM met with patient and rehab team. Intervention/Goal/Outcome: 1. Goal: 24hr supervision/care 2. Plan: GUY with possible LTC 3. f/u with buster liaison to solidify accepting facility (possibly [facility] as [facility] does not have any available beds at this time) 4. continued emotional support - Discharge Plan Discharge Plan: Subacute care - Provider Provider: Sanjuana Gotti License Number: [id number] Rehabilitation Plan - Treatment Plan Treatment Plan: Physical Therapy, Occupational Therapy, Speech, Dietary, Patient/Family Education - Recommendation Recommendation: Physical Therapy, Occupational Therapy, Speech, Dietary, Patient/Family Education - Discharge Plan Discharge to: Subacute
--- NOTE | 2018-08-08 13:55 | CP.PCM.PN ---
Subjective - Date & Time of Evaluation Date of Evaluation: 08/08/18 Time of Evaluation: 10:00 - Subjective Subjective: no acute complaints at present Objective - Vital Signs/Intake and Output Vital Signs (last 24 hours): Temp Pulse Resp BP Pulse Ox 98.4 F 74 23 113/70 97 08/08/18 08:06 08/08/18 08:13 08/08/18 08:06 08/08/18 08:13 08/08/18 08:06 - Medications Medications: Current Medications Acetaminophen (Tylenol 325mg/10.15ml Ud) 650 mg PO Q4H PRN PRN Reason: Temperature Acetaminophen (Tylenol 325mg/10.15ml Ud) 650 mg PO Q6 PRN PRN Reason: Headache Acyclovir (Zovirax) 400 mg PO BID [facility]; Protocol Last Admin: 08/08/18 08:16 Dose: 400 mg Albuterol/Ipratropium (Duoneb 3 Mg/0.5 Mg (3 Ml) Ud) 3 ml INH RQ4 [facility] Last Admin: 08/08/18 11:24 Dose: Not Given Amlodipine Besylate (Norvasc) 5 mg PO DAILY [facility] Last Admin: 08/08/18 08:13 Dose: 5 mg Aspirin (Ecotrin) 81 mg PO DAILY [facility] Last Admin: 08/08/18 08:10 Dose: 81 mg Atorvastatin Calcium (Lipitor) 20 mg PO DAILY@2200 [facility] Last Admin: 08/07/18 21:09 Dose: 20 mg Dolutegravir Sodium (Tivicay) 50 mg PO DAILY [facility]; Protocol Last Admin: 08/08/18 08:15 Dose: 50 mg Duloxetine HCl (Cymbalta) 30 mg PO BID [facility] Last Admin: 08/08/18 08:10 Dose: 30 mg Emtricitabine/Tenofovir (Truvada 200 Mg-300 Mg) 1 tab PO DAILY [facility]; Protocol Last Admin: 08/08/18 08:16 Dose: 1 tab Guaifenesin/Dextromethorphan (Mucinex-Dm 600-30 Mg) 2 tab PO BID [facility] Last Admin: 08/08/18 11:12 Dose: 2 tab Lactic Acid (Lac-Hydrin 12% Lotion (225 G)) 1 applic TOP Q12 [facility] Last Admin: 08/08/18 08:11 Dose: 1 appl Lactobacillus Acidophilus (Bacid Acidophilus) 1 cap PO BID [facility] Last Admin: 08/08/18 08:09 Dose: 1 cap Magnesium Oxide (Mag-Ox) 400 mg PO BID [facility] Last Admin: 08/08/18 08:12 Dose: 400 mg Pantoprazole Sodium (Protonix Ec Tab) 40 mg PO DAILY [facility] Last Admin: 08/08/18 08:15 Dose: 40 mg Prednisone (Prednisone Tab) 10 mg PO DAILY [facility] Stop: 08/10/18 09:01 Quetiapine Fumarate (Seroquel) 200 mg PO HS [facility] Last Admin: 08/07/18 21:09 Dose: 200 mg Senna/Docusate Sodium (Senokot S 50 Mg-8.6 Mg) 2 tab PO BID [facility] Last Admin: 08/08/18 08:15 Dose: 2 tab Trimethoprim/Sulfamethoxazole (Bactrim Ds Tab) 1 tab PO DAILY [facility]; Protocol Last Admin: 08/08/18 08:10 Dose: 1 tab - Labs Labs: 07/28/18 05:30 07/28/18 05:30 - Constitutional Appears: Well - Head Exam Head Exam: ATRAUMATIC, NORMAL INSPECTION, NORMOCEPHALIC - Eye Exam Eye Exam: EOMI, Normal appearance, PERRL Pupil Exam: NORMAL ACCOMODATION - ENT Exam ENT Exam: Mucous Membranes Moist, Normal Exam - Neck Exam Neck Exam: Full ROM, Normal Inspection - Respiratory Exam Respiratory Exam: Clear to Ausculation Bilateral, NORMAL BREATHING PATTERN - Cardiovascular Exam Cardiovascular Exam: REGULAR RHYTHM - GI/Abdominal Exam GI & Abdominal Exam: Soft, Normal Bowel Sounds - Rectal Exam Rectal Exam: NORMAL INSPECTION - Exam External exam: NORMAL EXTERNAL EXAM - Extremities Exam Extremities Exam: Full ROM, Normal Capillary Refill, Normal Inspection - Back Exam Back Exam: NORMAL INSPECTION - Neurological Exam Neurological Exam: Alert, Awake Neuro motor strength exam: Right Upper Extremity: 0, Right Lower Extremity: 0 - Psychiatric Exam Psychiatric exam: Normal Affect, Normal Mood - Skin Skin Exam: Dry, Intact Assessment and Plan (1) Aspiration pneumonia Status: Acute (2) COPD (chronic obstructive pulmonary disease) Status: Acute (3) COPD with exacerbation Status: Acute - Assessment and Plan (Free Text) Assessment: right hemiplegia, secondary to CVA plan for physical, occupational rec and speech therapy plan for Subacute on the the
--- NOTE | 2018-08-08 17:40 | CP.PCM.PN ---
Subjective - Date & Time of Evaluation Date of Evaluation: 08/08/18 Time of Evaluation: 10:40 - Subjective Subjective: Patient seen and examined. Denied any complaint. Objective - Vital Signs/Intake and Output Vital Signs (last 24 hours): Temp Pulse Resp BP Pulse Ox 98.4 F 74 23 113/70 97 08/08/18 08:06 08/08/18 08:13 08/08/18 08:06 08/08/18 08:13 08/08/18 08:06 - Medications Medications: Current Medications Acetaminophen (Tylenol 325mg/10.15ml Ud) 650 mg PO Q4H PRN PRN Reason: Temperature Acetaminophen (Tylenol 325mg/10.15ml Ud) 650 mg PO Q6 PRN PRN Reason: Headache Acyclovir (Zovirax) 400 mg PO BID [facility]; Protocol Last Admin: 08/08/18 16:12 Dose: 400 mg Albuterol/Ipratropium (Duoneb 3 Mg/0.5 Mg (3 Ml) Ud) 3 ml INH RQ4 [facility] Last Admin: 08/08/18 11:24 Dose: Not Given Amlodipine Besylate (Norvasc) 5 mg PO DAILY [facility] Last Admin: 08/08/18 08:13 Dose: 5 mg Aspirin (Ecotrin) 81 mg PO DAILY [facility] Last Admin: 08/08/18 08:10 Dose: 81 mg Atorvastatin Calcium (Lipitor) 20 mg PO DAILY@2200 [facility] Last Admin: 08/07/18 21:09 Dose: 20 mg Dolutegravir Sodium (Tivicay) 50 mg PO DAILY [facility]; Protocol Last Admin: 08/08/18 08:15 Dose: 50 mg Duloxetine HCl (Cymbalta) 30 mg PO BID [facility] Last Admin: 08/08/18 16:11 Dose: 30 mg Emtricitabine/Tenofovir (Truvada 200 Mg-300 Mg) 1 tab PO DAILY [facility]; Protocol Last Admin: 08/08/18 08:16 Dose: 1 tab Guaifenesin/Dextromethorphan (Mucinex-Dm 600-30 Mg) 2 tab PO BID [facility] Last Admin: 08/08/18 16:12 Dose: 2 tab Lactic Acid (Lac-Hydrin 12% Lotion (225 G)) 1 applic TOP Q12 [facility] Last Admin: 08/08/18 08:11 Dose: 1 appl Lactobacillus Acidophilus (Bacid Acidophilus) 1 cap PO BID [facility] Last Admin: 08/08/18 16:11 Dose: 1 cap Magnesium Oxide (Mag-Ox) 400 mg PO BID [facility] Last Admin: 08/08/18 16:11 Dose: 400 mg Pantoprazole Sodium (Protonix Ec Tab) 40 mg PO DAILY [facility] Last Admin: 08/08/18 08:15 Dose: 40 mg Prednisone (Prednisone Tab) 10 mg PO DAILY [facility] Stop: 08/10/18 09:01 Quetiapine Fumarate (Seroquel) 200 mg PO HS [facility] Last Admin: 08/07/18 21:09 Dose: 200 mg Senna/Docusate Sodium (Senokot S 50 Mg-8.6 Mg) 2 tab PO BID [facility] Last Admin: 08/08/18 16:12 Dose: 2 tab Trimethoprim/Sulfamethoxazole (Bactrim Ds Tab) 1 tab PO DAILY [facility]; Protocol Last Admin: 08/08/18 08:10 Dose: 1 tab - Labs Labs: 07/28/18 05:30 07/28/18 05:30 - Constitutional Appears: No Acute Distress - Head Exam Head Exam: ATRAUMATIC - Eye Exam Eye Exam: absent: Scleral icterus - ENT Exam ENT Exam: Mucous Membranes Moist - Neck Exam Neck Exam: absent: Meningismus - Respiratory Exam Respiratory Exam: absent: Rales, Rhonchi, Wheezes, Respiratory Distress - Cardiovascular Exam Cardiovascular Exam: REGULAR RHYTHM, +S1, +S2 - GI/Abdominal Exam GI & Abdominal Exam: Soft. absent: Tenderness - Rectal Exam Rectal Exam: Deferred - Neurological Exam Neurological Exam: Alert, Oriented x3 - Psychiatric Exam Psychiatric exam: Normal Affect - Skin Skin Exam: Dry, Intact Assessment and Plan - Assessment and Plan (Free Text) Assessment: 58 yo female with history of HIV, drug abuse and Bipolar DO presented with AMS and was found to have acute ischemic stroke with right sided weakness. Patient also had sepsis secondary to pneumonia and flu. She was managed with Levaquin and Vancomycin and Tamiflu. 1. Ischemic Stroke with Right Hemiparesis continue BP management continue statin and ASA doing well with PT/OT 2. Community Acquired Pneumonia completed 14 day course of IV Levaquin and Vancomycin continue tapering of Prednisone 10mg PO daily Duoneb Q4H 3. HIV HAART resumed (Tivicay 50mg daily and Truvada 200mg-300mg daily) CD4 = 135 Screen for opportunistic infections continue prophylaxis with Acyclovir and Bactrim ID consult, Dr Velazco 4. Chronic hepatitis C stable 5. Bipolar Disorder/Depression/Paranoia/Personality Disorder continue Cymbalta and Seroquel 6. DVT prophylaxis venodyne boots while in bed
[2018-08-09] MEDS: Albuterol-Ipratrop 3 mg / 0.5 (3 ml) UD INH SCH ×6 (00:54→19:35)
[2018-08-09] MEDS: Magnesium Oxide 400 mg Tab UD PO SCH ×2 (09:05→16:12)
[2018-08-09] MEDS: Emtricitabine-Tenofovir 200 mg-300 mg Tab PO SCH (09:06)
[2018-08-09] MEDS: Tmp-Smz 800 mg-160 mg DS Tab PO SCH (09:06)
[2018-08-09] MEDS: guaiFENesin-DM 600-30 mg ER Tab PO SCH ×2 (09:07→16:13)
[2018-08-09] MEDS: Pantoprazole 40 mg EC Tab PO SCH (09:07)
[2018-08-09] MEDS: Docusate-Senna 50 mg-8.6 mg Tab PO SCH ×2 (09:08→16:13)
[2018-08-09] MEDS: Lactobacillus Acidophilus 500 MU Cap PO SCH ×2 (09:11→16:13)
[2018-08-10] MEDS: Albuterol-Ipratrop 3 mg / 0.5 (3 ml) UD INH SCH ×6 (00:33→19:18)
[2018-08-10] MEDS: Tmp-Smz 800 mg-160 mg DS Tab PO SCH (08:00)
[2018-08-10] MEDS: Lactobacillus Acidophilus 500 MU Cap PO SCH ×2 (08:00→17:09)
[2018-08-10] MEDS: Magnesium Oxide 400 mg Tab UD PO SCH ×2 (08:00→17:09)
[2018-08-10] MEDS: guaiFENesin-DM 600-30 mg ER Tab PO SCH ×2 (08:01→17:09)
[2018-08-10] MEDS: Docusate-Senna 50 mg-8.6 mg Tab PO SCH ×2 (08:02→17:09)
[2018-08-10] MEDS: Pantoprazole 40 mg EC Tab PO SCH (08:02)
[2018-08-10] MEDS: Emtricitabine-Tenofovir 200 mg-300 mg Tab PO SCH (08:03)
--- NOTE | 2018-08-10 09:14 | CP.PCM.PN ---
<Taylor Patel - Last Filed: 08/10/18 10:19> Subjective - Date & Time of Evaluation Date of Evaluation: 08/10/18 Time of Evaluation: 09:14 - Subjective Subjective: 58 y/o female patient seen and evaluated at bedside. Patient resting in bed comfortably, afebrile, and hemdynamically stable. Patient still with right sided hemiparesis and slurred speech. patient denies any chest pain, shortness of breath, fever, nausea, vomiting, diarrhea or constipation. As per nursing, no overnight events, bowel movement on 08/08 Objective - Vital Signs/Intake and Output Vital Signs (last 24 hours): Temp Pulse Resp BP Pulse Ox 98.1 F 69 18 116/78 94 L 08/10/18 07:36 08/10/18 08:01 08/10/18 07:36 08/10/18 08:01 08/10/18 07:36 - Medications Medications: Current Medications Acetaminophen (Tylenol 325mg/10.15ml Ud) 650 mg PO Q4H PRN PRN Reason: Temperature Acetaminophen (Tylenol 325mg/10.15ml Ud) 650 mg PO Q6 PRN PRN Reason: Headache Acyclovir (Zovirax) 400 mg PO BID [facility]; Protocol Last Admin: 08/10/18 08:03 Dose: 400 mg Albuterol/Ipratropium (Duoneb 3 Mg/0.5 Mg (3 Ml) Ud) 3 ml INH RQ4 [facility] Last Admin: 08/10/18 07:28 Dose: Not Given Amlodipine Besylate (Norvasc) 5 mg PO DAILY [facility] Last Admin: 08/10/18 08:01 Dose: 5 mg Aspirin (Ecotrin) 81 mg PO DAILY [facility] Last Admin: 08/10/18 08:01 Dose: 81 mg Atorvastatin Calcium (Lipitor) 20 mg PO DAILY@2200 [facility] Last Admin: 08/09/18 21:12 Dose: 20 mg Dolutegravir Sodium (Tivicay) 50 mg PO DAILY [facility]; Protocol Last Admin: 08/10/18 08:03 Dose: 50 mg Duloxetine HCl (Cymbalta) 30 mg PO BID [facility] Last Admin: 08/10/18 08:00 Dose: 30 mg Emtricitabine/Tenofovir (Truvada 200 Mg-300 Mg) 1 tab PO DAILY [facility]; Protocol Last Admin: 08/10/18 08:03 Dose: 1 tab Guaifenesin/Dextromethorphan (Mucinex-Dm 600-30 Mg) 2 tab PO BID [facility] Last Admin: 08/10/18 08:01 Dose: 2 tab Lactic Acid (Lac-Hydrin 12% Lotion (225 G)) 1 applic TOP Q12 [facility] Last Admin: 08/10/18 08:01 Dose: 1 appl Lactobacillus Acidophilus (Bacid Acidophilus) 1 cap PO BID [facility] Last Admin: 08/10/18 08:00 Dose: 1 cap Magnesium Oxide (Mag-Ox) 400 mg PO BID [facility] Last Admin: 08/10/18 08:00 Dose: 400 mg Pantoprazole Sodium (Protonix Ec Tab) 40 mg PO DAILY [facility] Last Admin: 08/10/18 08:02 Dose: 40 mg Quetiapine Fumarate (Seroquel) 200 mg PO HS [facility] Last Admin: 08/09/18 21:12 Dose: 200 mg Senna/Docusate Sodium (Senokot S 50 Mg-8.6 Mg) 2 tab PO BID [facility] Last Admin: 08/10/18 08:02 Dose: 2 tab Trimethoprim/Sulfamethoxazole (Bactrim Ds Tab) 1 tab PO DAILY [facility]; Protocol Last Admin: 08/10/18 08:00 Dose: 1 tab - Labs Labs: 07/28/18 05:30 07/28/18 05:30 - Constitutional Appears: Non-toxic, No Acute Distress - Head Exam Head Exam: ATRAUMATIC, NORMOCEPHALIC - Eye Exam Eye Exam: Normal appearance, PERRL Pupil Exam: NORMAL ACCOMODATION - ENT Exam ENT Exam: Mucous Membranes Moist, Normal Exam - Neck Exam Neck Exam: Full ROM, Normal Inspection - Respiratory Exam Respiratory Exam: Clear to Ausculation Bilateral, NORMAL BREATHING PATTERN. absent: Rales, Rhonchi, Wheezes - Cardiovascular Exam Cardiovascular Exam: REGULAR RHYTHM, RRR, +S1, +S2 - GI/Abdominal Exam GI & Abdominal Exam: Soft, Normal Bowel Sounds. absent: Firm, Guarding, Rigid - Rectal Exam Rectal Exam: Deferred - Extremities Exam Extremities Exam: absent: Pedal Edema Additional comments: continued right sided weakness on exam - Neurological Exam Neurological Exam: Alert, Awake Additional comments: right hemiparesis slurred speech - Psychiatric Exam Psychiatric exam: Normal Affect - Skin Skin Exam: Normal Color Assessment and Plan - Assessment and Plan (Free Text) Assessment: 58 yo female with history of HIV, drug abuse and Bipolar DO presented with AMS and was found to have acute ischemic stroke with right sided weakness. Patient also found to have sepsis secondary to pneumonia and flu. She was treated with Levaquin and Vancomycin and Tamiflu. patient currently in acute rehab for physical therapy, patient participating in therapy Plan: 1. Ischemic Stroke with Right Hemiparesis continue BP management continue statin and ASA doing well with PT/OT patient to go to subacute on 08/14/18 2. Community Acquired Pneumonia completed 14 day course of IV Levaquin and Vancomycin Prednisone d/c at this time Duoneb Q4H 3. HIV HAART resumed (Tivicay 50mg daily and Truvada 200mg-300mg daily) CD4 = 135 Screen for opportunistic infections continue prophylaxis with Acyclovir and Bactrim ID consult, Dr Velazco- recommendations appreciated 4. Chronic hepatitis C stable 5. Bipolar Disorder/Depression/Paranoia/Personality Disorder continue Cymbalta and Seroquel Physiatry consult- recommendations appreciated 6. DVT prophylaxis venodyne boots while in bed <Will Moreira D - Last Filed: 08/10/18 11:53> Objective - Vital Signs/Intake and Output Vital Signs (last 24 hours): Temp Pulse Resp BP Pulse Ox 98.1 F 69 18 116/78 94 L 08/10/18 07:36 08/10/18 08:01 08/10/18 07:36 08/10/18 08:01 08/10/18 07:36 - Medications Medications: Current Medications Acetaminophen (Tylenol 325mg/10.15ml Ud) 650 mg PO Q4H PRN PRN Reason: Temperature Acetaminophen (Tylenol 325mg/10.15ml Ud) 650 mg PO Q6 PRN PRN Reason: Headache Acyclovir (Zovirax) 400 mg PO BID [facility]; Protocol Last Admin: 08/10/18 08:03 Dose: 400 mg Albuterol/Ipratropium (Duoneb 3 Mg/0.5 Mg (3 Ml) Ud) 3 ml INH RQ4 [facility] Last Admin: 08/10/18 11:26 Dose: Not Given Amlodipine Besylate (Norvasc) 5 mg PO DAILY [facility] Last Admin: 08/10/18 08:01 Dose: 5 mg Aspirin (Ecotrin) 81 mg PO DAILY [facility] Last Admin: 08/10/18 08:01 Dose: 81 mg Atorvastatin Calcium (Lipitor) 20 mg PO DAILY@2200 [facility] Last Admin: 08/09/18 21:12 Dose: 20 mg Dolutegravir Sodium (Tivicay) 50 mg PO DAILY [facility]; Protocol Last Admin: 08/10/18 08:03 Dose: 50 mg Duloxetine HCl (Cymbalta) 30 mg PO BID [facility] Last Admin: 08/10/18 08:00 Dose: 30 mg Emtricitabine/Tenofovir (Truvada 200 Mg-300 Mg) 1 tab PO DAILY [facility]; Protocol Last Admin: 08/10/18 08:03 Dose: 1 tab Guaifenesin/Dextromethorphan (Mucinex-Dm 600-30 Mg) 2 tab PO BID [facility] Last Admin: 08/10/18 08:01 Dose: 2 tab Lactic Acid (Lac-Hydrin 12% Lotion (225 G)) 1 applic TOP Q12 [facility] Last Admin: 08/10/18 08:01 Dose: 1 appl Lactobacillus Acidophilus (Bacid Acidophilus) 1 cap PO BID [facility] Last Admin: 08/10/18 08:00 Dose: 1 cap Magnesium Oxide (Mag-Ox) 400 mg PO BID [facility] Last Admin: 08/10/18 08:00 Dose: 400 mg Pantoprazole Sodium (Protonix Ec Tab) 40 mg PO DAILY [facility] Last Admin: 08/10/18 08:02 Dose: 40 mg Quetiapine Fumarate (Seroquel) 200 mg PO HS [facility] Last Admin: 08/09/18 21:12 Dose: 200 mg Senna/Docusate Sodium (Senokot S 50 Mg-8.6 Mg) 2 tab PO BID [facility] Last Admin: 08/10/18 08:02 Dose: 2 tab Trimethoprim/Sulfamethoxazole (Bactrim Ds Tab) 1 tab PO DAILY [facility]; Protocol Last Admin: 08/10/18 08:00 Dose: 1 tab - Labs Labs: 07/28/18 05:30 07/28/18 05:30 Attending/Attestation - Attestation I have personally seen and examined this patient.: Yes I have fully participated in the care of the patient.: Yes I have reviewed all pertinent clinical information, including history, physical exam and plan: Yes Notes (Text): 08/10/18 11:52 Patient seen and examined with resident. Case discussed and agreed with assessment and plan.
--- NOTE | 2018-08-10 13:34 | CP.PCM.PN ---
Subjective - Date & Time of Evaluation Date of Evaluation: 08/10/18 Time of Evaluation: 09:00 - Subjective Subjective: improving T cells viral load undetectable on HAART Rx Objective - Vital Signs/Intake and Output Vital Signs (last 24 hours): Temp Pulse Resp BP Pulse Ox 98.1 F 69 18 116/78 94 L 08/10/18 07:36 08/10/18 08:01 08/10/18 07:36 08/10/18 08:01 08/10/18 07:36 - Medications Medications: Current Medications Acetaminophen (Tylenol 325mg/10.15ml Ud) 650 mg PO Q4H PRN PRN Reason: Temperature Acetaminophen (Tylenol 325mg/10.15ml Ud) 650 mg PO Q6 PRN PRN Reason: Headache Acyclovir (Zovirax) 400 mg PO BID [facility]; Protocol Last Admin: 08/10/18 08:03 Dose: 400 mg Albuterol/Ipratropium (Duoneb 3 Mg/0.5 Mg (3 Ml) Ud) 3 ml INH RQ4 [facility] Last Admin: 08/10/18 11:26 Dose: Not Given Amlodipine Besylate (Norvasc) 5 mg PO DAILY [facility] Last Admin: 08/10/18 08:01 Dose: 5 mg Aspirin (Ecotrin) 81 mg PO DAILY [facility] Last Admin: 08/10/18 08:01 Dose: 81 mg Atorvastatin Calcium (Lipitor) 20 mg PO DAILY@2200 [facility] Last Admin: 08/09/18 21:12 Dose: 20 mg Dolutegravir Sodium (Tivicay) 50 mg PO DAILY [facility]; Protocol Last Admin: 08/10/18 08:03 Dose: 50 mg Duloxetine HCl (Cymbalta) 30 mg PO BID [facility] Last Admin: 08/10/18 08:00 Dose: 30 mg Emtricitabine/Tenofovir (Truvada 200 Mg-300 Mg) 1 tab PO DAILY [facility]; Protocol Last Admin: 08/10/18 08:03 Dose: 1 tab Guaifenesin/Dextromethorphan (Mucinex-Dm 600-30 Mg) 2 tab PO BID [facility] Last Admin: 08/10/18 08:01 Dose: 2 tab Lactic Acid (Lac-Hydrin 12% Lotion (225 G)) 1 applic TOP Q12 [facility] Last Admin: 08/10/18 08:01 Dose: 1 appl Lactobacillus Acidophilus (Bacid Acidophilus) 1 cap PO BID [facility] Last Admin: 08/10/18 08:00 Dose: 1 cap Magnesium Oxide (Mag-Ox) 400 mg PO BID [facility] Last Admin: 08/10/18 08:00 Dose: 400 mg Pantoprazole Sodium (Protonix Ec Tab) 40 mg PO DAILY [facility] Last Admin: 08/10/18 08:02 Dose: 40 mg Quetiapine Fumarate (Seroquel) 200 mg PO HS [facility] Last Admin: 08/09/18 21:12 Dose: 200 mg Senna/Docusate Sodium (Senokot S 50 Mg-8.6 Mg) 2 tab PO BID [facility] Last Admin: 08/10/18 08:02 Dose: 2 tab Trimethoprim/Sulfamethoxazole (Bactrim Ds Tab) 1 tab PO DAILY [facility]; Protocol Last Admin: 08/10/18 08:00 Dose: 1 tab - Labs Labs: 07/28/18 05:30 07/28/18 05:30 Assessment and Plan (1) Aspiration pneumonia Status: Acute (2) COPD (chronic obstructive pulmonary disease) Status: Acute (3) Cerebrovascular accident (CVA) with right hemiparesis Status: Acute (4) Depression Status: Acute (5) HIV (human immunodeficiency virus infection) Status: Acute (6) Rhabdomyolysis Status: Acute
--- NOTE | 2018-08-10 15:21 | CP.PCM.PN ---
Subjective - Date & Time of Evaluation Date of Evaluation: 08/10/18 Time of Evaluation: 10:00 - Subjective Subjective: no acute complaints at present Objective - Vital Signs/Intake and Output Vital Signs (last 24 hours): Temp Pulse Resp BP Pulse Ox 98.1 F 69 18 116/78 94 L 08/10/18 07:36 08/10/18 08:01 08/10/18 07:36 08/10/18 08:01 08/10/18 07:36 - Medications Medications: Current Medications Acetaminophen (Tylenol 325mg/10.15ml Ud) 650 mg PO Q4H PRN PRN Reason: Temperature Acetaminophen (Tylenol 325mg/10.15ml Ud) 650 mg PO Q6 PRN PRN Reason: Headache Acyclovir (Zovirax) 400 mg PO BID [facility]; Protocol Last Admin: 08/10/18 08:03 Dose: 400 mg Albuterol/Ipratropium (Duoneb 3 Mg/0.5 Mg (3 Ml) Ud) 3 ml INH RQ4 [facility] Last Admin: 08/10/18 11:26 Dose: Not Given Amlodipine Besylate (Norvasc) 5 mg PO DAILY [facility] Last Admin: 08/10/18 08:01 Dose: 5 mg Aspirin (Ecotrin) 81 mg PO DAILY [facility] Last Admin: 08/10/18 08:01 Dose: 81 mg Atorvastatin Calcium (Lipitor) 20 mg PO DAILY@2200 [facility] Last Admin: 08/09/18 21:12 Dose: 20 mg Dolutegravir Sodium (Tivicay) 50 mg PO DAILY [facility]; Protocol Last Admin: 08/10/18 08:03 Dose: 50 mg Duloxetine HCl (Cymbalta) 30 mg PO BID [facility] Last Admin: 08/10/18 08:00 Dose: 30 mg Emtricitabine/Tenofovir (Truvada 200 Mg-300 Mg) 1 tab PO DAILY [facility]; Protocol Last Admin: 08/10/18 08:03 Dose: 1 tab Guaifenesin/Dextromethorphan (Mucinex-Dm 600-30 Mg) 2 tab PO BID [facility] Last Admin: 08/10/18 08:01 Dose: 2 tab Lactic Acid (Lac-Hydrin 12% Lotion (225 G)) 1 applic TOP Q12 [facility] Last Admin: 08/10/18 08:01 Dose: 1 appl Lactobacillus Acidophilus (Bacid Acidophilus) 1 cap PO BID [facility] Last Admin: 08/10/18 08:00 Dose: 1 cap Magnesium Oxide (Mag-Ox) 400 mg PO BID [facility] Last Admin: 08/10/18 08:00 Dose: 400 mg Pantoprazole Sodium (Protonix Ec Tab) 40 mg PO DAILY [facility] Last Admin: 08/10/18 08:02 Dose: 40 mg Quetiapine Fumarate (Seroquel) 200 mg PO HS [facility] Last Admin: 08/09/18 21:12 Dose: 200 mg Senna/Docusate Sodium (Senokot S 50 Mg-8.6 Mg) 2 tab PO BID [facility] Last Admin: 08/10/18 08:02 Dose: 2 tab Trimethoprim/Sulfamethoxazole (Bactrim Ds Tab) 1 tab PO DAILY [facility]; Protocol Last Admin: 08/10/18 08:00 Dose: 1 tab - Labs Labs: 07/28/18 05:30 07/28/18 05:30 - Constitutional Appears: Well - Head Exam Head Exam: ATRAUMATIC, NORMAL INSPECTION - Eye Exam Eye Exam: EOMI, Normal appearance, PERRL Pupil Exam: NORMAL ACCOMODATION - ENT Exam ENT Exam: Mucous Membranes Moist, Normal Exam - Neck Exam Neck Exam: Full ROM, Normal Inspection - Respiratory Exam Respiratory Exam: Clear to Ausculation Bilateral, NORMAL BREATHING PATTERN - Cardiovascular Exam Cardiovascular Exam: REGULAR RHYTHM - GI/Abdominal Exam GI & Abdominal Exam: Soft, Normal Bowel Sounds - Rectal Exam Rectal Exam: NORMAL INSPECTION - Exam External exam: NORMAL EXTERNAL EXAM - Extremities Exam Extremities Exam: Full ROM, Normal Capillary Refill, Normal Inspection - Back Exam Back Exam: NORMAL INSPECTION - Neurological Exam Neurological Exam: Alert, Awake Neuro motor strength exam: Left Upper Extremity: 0, Left Lower Extremity: 2/1 - Psychiatric Exam Psychiatric exam: Normal Affect, Normal Mood - Skin Skin Exam: Dry, Intact, Normal Color Assessment and Plan (1) Aspiration pneumonia Status: Acute (2) COPD (chronic obstructive pulmonary disease) Status: Acute (3) COPD with exacerbation Status: Acute - Assessment and Plan (Free Text) Assessment: left hemiplegis secondary to CVa, paln for pT, Ot ,REc and St plan for subacute rehab after acute is completed on
[2018-08-11] MEDS: Albuterol-Ipratrop 3 mg / 0.5 (3 ml) UD INH SCH ×7 (00:41→23:00)
[2018-08-11] MEDS: Lactobacillus Acidophilus 500 MU Cap PO SCH ×2 (08:07→19:06)
[2018-08-11] MEDS: Tmp-Smz 800 mg-160 mg DS Tab PO SCH (08:07)
[2018-08-11] MEDS: Pantoprazole 40 mg EC Tab PO SCH (08:08)
[2018-08-11] MEDS: Emtricitabine-Tenofovir 200 mg-300 mg Tab PO SCH (08:08)
[2018-08-11] MEDS: Magnesium Oxide 400 mg Tab UD PO SCH ×2 (08:09→17:34)
[2018-08-11] MEDS: Docusate-Senna 50 mg-8.6 mg Tab PO SCH ×2 (08:15→17:34)
[2018-08-11] MEDS: guaiFENesin-DM 600-30 mg ER Tab PO SCH ×2 (09:00→17:30)
[2018-08-12] MEDS: Albuterol-Ipratrop 3 mg / 0.5 (3 ml) UD INH SCH ×6 (04:59→23:03)
[2018-08-12] MEDS: Lactobacillus Acidophilus 500 MU Cap PO SCH ×2 (09:06→17:28)
[2018-08-12] MEDS: Docusate-Senna 50 mg-8.6 mg Tab PO SCH ×2 (09:07→17:30)
[2018-08-12] MEDS: Pantoprazole 40 mg EC Tab PO SCH (09:08)
[2018-08-12] MEDS: Emtricitabine-Tenofovir 200 mg-300 mg Tab PO SCH (09:09)
[2018-08-12] MEDS: Magnesium Oxide 400 mg Tab UD PO SCH ×2 (09:10→17:30)
[2018-08-12] MEDS: Tmp-Smz 800 mg-160 mg DS Tab PO SCH (09:10)
[2018-08-12] MEDS: guaiFENesin-DM 600-30 mg ER Tab PO SCH ×2 (09:11→17:31)
[2018-08-13] MEDS: Albuterol-Ipratrop 3 mg / 0.5 (3 ml) UD INH SCH ×5 (03:52→21:36)
[2018-08-13] MEDS: Pantoprazole 40 mg EC Tab PO SCH (08:33)
[2018-08-13] MEDS: Lactobacillus Acidophilus 500 MU Cap PO SCH ×2 (08:33→17:25)
[2018-08-13] MEDS: Tmp-Smz 800 mg-160 mg DS Tab PO SCH (08:33)
[2018-08-13] MEDS: Emtricitabine-Tenofovir 200 mg-300 mg Tab PO SCH (08:33)
[2018-08-13] MEDS: Magnesium Oxide 400 mg Tab UD PO SCH ×2 (08:33→17:26)
[2018-08-13] MEDS: Docusate-Senna 50 mg-8.6 mg Tab PO SCH ×2 (08:33→17:26)
[2018-08-13] MEDS: guaiFENesin-DM 600-30 mg ER Tab PO SCH ×2 (08:33→17:26)
[2018-08-13] MEDS ORDERED: Barium Sulfate Susp 0.1% w/v, 0.1% w/w 450 mL Bottle PO ONE (10:20)
--- NOTE | 2018-08-13 13:34 | CP.PCM.PN ---
Subjective - Date & Time of Evaluation Date of Evaluation: 08/13/18 Time of Evaluation: 13:33 - Subjective Subjective: Neurology Follow-Up Note: Mrs. Kilgore was evaluated this afternoon on the acute rehab unit. Family at bedside. She admits to feeling good and offers no complaints. She is participating in therapy as tolerated. Chart reviewed. She is for possible d/c to [facility] this week. Denies h/a, dizziness, visual changes, chest pain, sob, n/v/ d. Objective - Vital Signs/Intake and Output Vital Signs (last 24 hours): Temp Pulse Resp BP Pulse Ox 97.9 F 79 18 108/74 97 08/13/18 07:55 08/13/18 08:34 08/13/18 07:55 08/13/18 08:34 08/13/18 07:55 - Medications Medications: Current Medications Acetaminophen (Tylenol 325mg/10.15ml Ud) 650 mg PO Q4H PRN PRN Reason: Temperature Acetaminophen (Tylenol 325mg/10.15ml Ud) 650 mg PO Q6 PRN PRN Reason: Headache Acyclovir (Zovirax) 400 mg PO BID [facility]; Protocol Last Admin: 08/13/18 08:33 Dose: 400 mg Albuterol/Ipratropium (Duoneb 3 Mg/0.5 Mg (3 Ml) Ud) 3 ml INH RQ4 [facility] Last Admin: 08/13/18 03:52 Dose: Not Given Amlodipine Besylate (Norvasc) 5 mg PO DAILY [facility] Last Admin: 08/13/18 08:34 Dose: 5 mg Aspirin (Ecotrin) 81 mg PO DAILY [facility] Last Admin: 08/13/18 08:33 Dose: 81 mg Atorvastatin Calcium (Lipitor) 20 mg PO DAILY@2200 [facility] Last Admin: 08/12/18 21:03 Dose: 20 mg Dolutegravir Sodium (Tivicay) 50 mg PO DAILY [facility]; Protocol Last Admin: 08/13/18 08:33 Dose: 50 mg Duloxetine HCl (Cymbalta) 30 mg PO BID [facility] Last Admin: 08/13/18 08:33 Dose: 30 mg Emtricitabine/Tenofovir (Truvada 200 Mg-300 Mg) 1 tab PO DAILY [facility]; Protocol Last Admin: 08/13/18 08:33 Dose: 1 tab Guaifenesin/Dextromethorphan (Mucinex-Dm 600-30 Mg) 2 tab PO BID [facility] Last Admin: 08/13/18 08:33 Dose: 2 tab Lactic Acid (Lac-Hydrin 12% Lotion (225 G)) 1 applic TOP Q12 [facility] Last Admin: 08/13/18 08:32 Dose: 1 appl Lactobacillus Acidophilus (Bacid Acidophilus) 1 cap PO BID [facility] Last Admin: 08/13/18 08:33 Dose: 1 cap Magnesium Oxide (Mag-Ox) 400 mg PO BID [facility] Last Admin: 08/13/18 08:33 Dose: 400 mg Pantoprazole Sodium (Protonix Ec Tab) 40 mg PO DAILY [facility] Last Admin: 08/13/18 08:33 Dose: 40 mg Quetiapine Fumarate (Seroquel) 200 mg PO HS [facility] Last Admin: 08/12/18 21:03 Dose: 200 mg Senna/Docusate Sodium (Senokot S 50 Mg-8.6 Mg) 2 tab PO BID [facility] Last Admin: 08/13/18 08:33 Dose: 2 tab Trimethoprim/Sulfamethoxazole (Bactrim Ds Tab) 1 tab PO DAILY [facility]; Protocol Last Admin: 08/13/18 08:33 Dose: 1 tab - Labs Labs: 07/28/18 05:30 07/28/18 05:30 - Constitutional Appears: Well, Non-toxic, No Acute Distress - Head Exam Head Exam: ATRAUMATIC, NORMAL INSPECTION, NORMOCEPHALIC - Eye Exam Eye Exam: EOMI, Normal appearance, PERRL Pupil Exam: NORMAL ACCOMODATION, PERRL - ENT Exam ENT Exam: Mucous Membranes Moist, Normal Exam - Neck Exam Neck Exam: Full ROM, Normal Inspection - Respiratory Exam Respiratory Exam: NORMAL BREATHING PATTERN - Extremities Exam Extremities Exam: absent: Calf Tenderness, Full ROM, Pedal Edema Additional comments: right side hemiplegia - Back Exam Back Exam: Full ROM, NORMAL INSPECTION - Neurological Exam Neurological Exam: Alert, Awake, CN II-XII Intact. absent: Reflexes Normal Neuro motor strength exam: Left Upper Extremity: 5, Right Upper Extremity: 0, Left Lower Extremity: 5, Right Lower Extremity: 0 Additional comments: Pt is still slightly aphasic and has some difficulty comprehending what is told to her; she is also still repetitive in her verbiage at times and responds appropriately other times. This, however, is improving. Slight right facial droop persists. Right hemiplegia Hyperflexia still noted b/l Sensation intact b/l No tremors - Psychiatric Exam Psychiatric exam: Normal Affect, Normal Mood - Skin Skin Exam: Normal Color Assessment and Plan (1) CVA (cerebral vascular accident) Assessment & Plan: Imaging reviewed: -CT Head (07/27/18): Limited examination due to extensive motion artifacts once again. No gross acute intracranial findings appreciated in the interval. Diffuse cerebral atrophy reiterated. Diminishing trace hemorrhage at the left external capsule noted clearly diminished in density indicating chronic state. -Continue ASA and statin while in acute rehab and upon d/c to [facility]. -Consider a repeat CT Head if there is a suspicion for increased hemorrhage and/or acute changes in pt's mental status. -Continue other treatment and management per primary team. -Notify neuro team of any acute changes in pt's condition. Case discussed with Dr. Dennis. Status: Acute
--- NOTE | 2018-08-13 15:43 | RAD ---
Date of service: 08/13/2018 PROCEDURE: Modified barium swallow study. HISTORY: dysphagia COMPARISON: None available. TECHNIQUE: Under fluoroscopic guidance, barium meals of various consistency were administered to the patient by the speech pathologist. Total fluoroscopic time 164.6 second. Cumulative dose 9.25 mGy FINDINGS: No penetration or aspiration was observed during this study. IMPRESSION: No penetration or aspiration observed. Please refer to the detailed report and recommendations of the speech pathologist.
[2018-08-14] MEDS: Albuterol-Ipratrop 3 mg / 0.5 (3 ml) UD INH SCH ×7 (00:28→23:40)
[2018-08-14] MEDS: Emtricitabine-Tenofovir 200 mg-300 mg Tab PO SCH (09:13)
[2018-08-14] MEDS: Lactobacillus Acidophilus 500 MU Cap PO SCH ×2 (09:13→16:51)
[2018-08-14] MEDS: Tmp-Smz 800 mg-160 mg DS Tab PO SCH (09:14)
[2018-08-14] MEDS: guaiFENesin-DM 600-30 mg ER Tab PO SCH ×2 (09:14→16:51)
[2018-08-14] MEDS: Magnesium Oxide 400 mg Tab UD PO SCH ×2 (09:14→16:51)
[2018-08-14] MEDS: Pantoprazole 40 mg EC Tab PO SCH (09:16)
[2018-08-14] MEDS: Docusate-Senna 50 mg-8.6 mg Tab PO SCH ×2 (10:43→16:51)
--- NOTE | 2018-08-14 15:16 | CP.PCM.PN ---
Subjective - Date & Time of Evaluation Date of Evaluation: 08/11/18 Time of Evaluation: 13:00 - Subjective Subjective: no acute complaints at present Objective - Vital Signs/Intake and Output Vital Signs (last 24 hours): Temp Pulse Resp BP Pulse Ox 98.0 F 74 22 131/59 L 97 08/14/18 08:41 08/14/18 09:16 08/14/18 08:41 08/14/18 09:16 08/14/18 08:41 - Medications Medications: Current Medications Acetaminophen (Tylenol 325mg/10.15ml Ud) 650 mg PO Q4H PRN PRN Reason: Temperature Acetaminophen (Tylenol 325mg/10.15ml Ud) 650 mg PO Q6 PRN PRN Reason: Headache Acyclovir (Zovirax) 400 mg PO BID [facility]; Protocol Last Admin: 08/14/18 09:16 Dose: 400 mg Albuterol/Ipratropium (Duoneb 3 Mg/0.5 Mg (3 Ml) Ud) 3 ml INH RQ4 [facility] Last Admin: 08/14/18 15:06 Dose: Not Given Amlodipine Besylate (Norvasc) 5 mg PO DAILY [facility] Last Admin: 08/14/18 09:16 Dose: 5 mg Aspirin (Ecotrin) 81 mg PO DAILY [facility] Last Admin: 08/14/18 09:14 Dose: 81 mg Atorvastatin Calcium (Lipitor) 20 mg PO DAILY@2200 [facility] Last Admin: 08/13/18 21:20 Dose: 20 mg Dolutegravir Sodium (Tivicay) 50 mg PO DAILY [facility]; Protocol Last Admin: 08/14/18 10:46 Dose: 50 mg Duloxetine HCl (Cymbalta) 30 mg PO BID [facility] Last Admin: 08/14/18 09:13 Dose: 30 mg Emtricitabine/Tenofovir (Truvada 200 Mg-300 Mg) 1 tab PO DAILY [facility]; Protocol Last Admin: 08/14/18 09:13 Dose: 1 tab Guaifenesin/Dextromethorphan (Mucinex-Dm 600-30 Mg) 2 tab PO BID [facility] Last Admin: 08/14/18 09:14 Dose: 2 tab Lactic Acid (Lac-Hydrin 12% Lotion (225 G)) 1 applic TOP Q12 [facility] Last Admin: 08/14/18 09:13 Dose: 1 appl Lactobacillus Acidophilus (Bacid Acidophilus) 1 cap PO BID [facility] Last Admin: 08/14/18 09:13 Dose: 1 cap Magnesium Oxide (Mag-Ox) 400 mg PO BID [facility] Last Admin: 08/14/18 09:14 Dose: 400 mg Pantoprazole Sodium (Protonix Ec Tab) 40 mg PO DAILY [facility] Last Admin: 08/14/18 09:16 Dose: 40 mg Quetiapine Fumarate (Seroquel) 200 mg PO HS [facility] Last Admin: 08/13/18 21:20 Dose: 200 mg Senna/Docusate Sodium (Senokot S 50 Mg-8.6 Mg) 2 tab PO BID [facility] Last Admin: 08/14/18 10:43 Dose: Not Given Trimethoprim/Sulfamethoxazole (Bactrim Ds Tab) 1 tab PO DAILY [facility]; Protocol Last Admin: 08/14/18 09:14 Dose: 1 tab - Labs Labs: 07/28/18 05:30 07/28/18 05:30 - Constitutional Appears: Well - Head Exam Head Exam: ATRAUMATIC, NORMAL INSPECTION, NORMOCEPHALIC - Eye Exam Eye Exam: EOMI, Normal appearance, PERRL Pupil Exam: NORMAL ACCOMODATION - ENT Exam ENT Exam: Mucous Membranes Moist, Normal Exam - Neck Exam Neck Exam: Full ROM, Normal Inspection - Respiratory Exam Respiratory Exam: Clear to Ausculation Bilateral, NORMAL BREATHING PATTERN - Cardiovascular Exam Cardiovascular Exam: REGULAR RHYTHM - GI/Abdominal Exam GI & Abdominal Exam: Soft, Normal Bowel Sounds - Rectal Exam Rectal Exam: NORMAL INSPECTION - Exam External exam: NORMAL EXTERNAL EXAM - Extremities Exam Extremities Exam: Full ROM, Normal Capillary Refill, Normal Inspection - Back Exam Back Exam: NORMAL INSPECTION - Neurological Exam Neurological Exam: Alert, Awake Neuro motor strength exam: Left Upper Extremity: 0, Right Upper Extremity: 3, Left Lower Extremity: 0 (clonus tone), Right Lower Extremity: 3 - Psychiatric Exam Psychiatric exam: Normal Affect, Normal Mood Assessment and Plan (1) Aspiration pneumonia Status: Acute (2) COPD (chronic obstructive pulmonary disease) Status: Acute (3) COPD with exacerbation Status: Acute - Assessment and Plan (Free Text) Assessment: right hemiplegia secondary to CVa plan for PT, OT REc and speech
--- NOTE | 2018-08-14 15:18 | CP.PCM.PN ---
Subjective - Date & Time of Evaluation Date of Evaluation: 08/14/18 Time of Evaluation: 14:00 - Subjective Subjective: patient is in therapy, alert repeating words no pain Objective - Vital Signs/Intake and Output Vital Signs (last 24 hours): Temp Pulse Resp BP Pulse Ox 98.0 F 74 22 131/59 L 97 08/14/18 08:41 08/14/18 09:16 08/14/18 08:41 08/14/18 09:16 08/14/18 08:41 - Medications Medications: Current Medications Acetaminophen (Tylenol 325mg/10.15ml Ud) 650 mg PO Q4H PRN PRN Reason: Temperature Acetaminophen (Tylenol 325mg/10.15ml Ud) 650 mg PO Q6 PRN PRN Reason: Headache Acyclovir (Zovirax) 400 mg PO BID [facility]; Protocol Last Admin: 08/14/18 09:16 Dose: 400 mg Albuterol/Ipratropium (Duoneb 3 Mg/0.5 Mg (3 Ml) Ud) 3 ml INH RQ4 [facility] Last Admin: 08/14/18 15:06 Dose: Not Given Amlodipine Besylate (Norvasc) 5 mg PO DAILY [facility] Last Admin: 08/14/18 09:16 Dose: 5 mg Aspirin (Ecotrin) 81 mg PO DAILY [facility] Last Admin: 08/14/18 09:14 Dose: 81 mg Atorvastatin Calcium (Lipitor) 20 mg PO DAILY@2200 [facility] Last Admin: 08/13/18 21:20 Dose: 20 mg Dolutegravir Sodium (Tivicay) 50 mg PO DAILY [facility]; Protocol Last Admin: 08/14/18 10:46 Dose: 50 mg Duloxetine HCl (Cymbalta) 30 mg PO BID [facility] Last Admin: 08/14/18 09:13 Dose: 30 mg Emtricitabine/Tenofovir (Truvada 200 Mg-300 Mg) 1 tab PO DAILY [facility]; Protocol Last Admin: 08/14/18 09:13 Dose: 1 tab Guaifenesin/Dextromethorphan (Mucinex-Dm 600-30 Mg) 2 tab PO BID [facility] Last Admin: 08/14/18 09:14 Dose: 2 tab Lactic Acid (Lac-Hydrin 12% Lotion (225 G)) 1 applic TOP Q12 [facility] Last Admin: 08/14/18 09:13 Dose: 1 appl Lactobacillus Acidophilus (Bacid Acidophilus) 1 cap PO BID [facility] Last Admin: 08/14/18 09:13 Dose: 1 cap Magnesium Oxide (Mag-Ox) 400 mg PO BID [facility] Last Admin: 08/14/18 09:14 Dose: 400 mg Pantoprazole Sodium (Protonix Ec Tab) 40 mg PO DAILY [facility] Last Admin: 08/14/18 09:16 Dose: 40 mg Quetiapine Fumarate (Seroquel) 200 mg PO HS [facility] Last Admin: 08/13/18 21:20 Dose: 200 mg Senna/Docusate Sodium (Senokot S 50 Mg-8.6 Mg) 2 tab PO BID [facility] Last Admin: 08/14/18 10:43 Dose: Not Given Trimethoprim/Sulfamethoxazole (Bactrim Ds Tab) 1 tab PO DAILY [facility]; Protocol Last Admin: 08/14/18 09:14 Dose: 1 tab - Labs Labs: 07/28/18 05:30 07/28/18 05:30 - Constitutional Appears: Well - Head Exam Head Exam: ATRAUMATIC, NORMAL INSPECTION, NORMOCEPHALIC - Eye Exam Eye Exam: EOMI, Normal appearance, PERRL Pupil Exam: NORMAL ACCOMODATION - ENT Exam ENT Exam: Mucous Membranes Moist, Normal Exam - Neck Exam Neck Exam: Full ROM, Normal Inspection - Respiratory Exam Respiratory Exam: Clear to Ausculation Bilateral, NORMAL BREATHING PATTERN - Cardiovascular Exam Cardiovascular Exam: REGULAR RHYTHM - GI/Abdominal Exam GI & Abdominal Exam: Soft - Rectal Exam Rectal Exam: NORMAL INSPECTION - Exam External exam: NORMAL EXTERNAL EXAM Speculum exam: NORMAL SPECULUM EXAM - Extremities Exam Extremities Exam: Full ROM, Normal Capillary Refill, Normal Inspection - Back Exam Back Exam: NORMAL INSPECTION - Neurological Exam Neurological Exam: Alert, Awake Neuro motor strength exam: Left Upper Extremity: 0, Left Lower Extremity: 2/1 (clonus ) - Psychiatric Exam Psychiatric exam: Normal Affect - Skin Skin Exam: Dry Assessment and Plan (1) Aspiration pneumonia Status: Acute (2) COPD (chronic obstructive pulmonary disease) Status: Acute (3) COPD with exacerbation Status: Acute - Assessment and Plan (Free Text) Assessment: left hemiplegia, fo rteam conference, for subacute rehab to get Psychiatry follow up for case 2 [facility]
[2018-08-15] MEDS: Albuterol-Ipratrop 3 mg / 0.5 (3 ml) UD INH SCH ×4 (07:39→23:47)
[2018-08-15] MEDS: Lactobacillus Acidophilus 500 MU Cap PO SCH ×2 (08:22→16:49)
[2018-08-15] MEDS: Pantoprazole 40 mg EC Tab PO SCH (08:23)
[2018-08-15] MEDS: Docusate-Senna 50 mg-8.6 mg Tab PO SCH ×2 (08:23→16:49)
[2018-08-15] MEDS: Magnesium Oxide 400 mg Tab UD PO SCH ×2 (08:23→16:49)
[2018-08-15] MEDS: guaiFENesin-DM 600-30 mg ER Tab PO SCH ×2 (08:23→16:49)
[2018-08-15] MEDS: Tmp-Smz 800 mg-160 mg DS Tab PO SCH (08:23)
[2018-08-15] MEDS: Emtricitabine-Tenofovir 200 mg-300 mg Tab PO SCH (08:24)
--- NOTE | 2018-08-15 10:42 | CP.PCM.PN ---
Subjective - Date & Time of Evaluation Date of Evaluation: 08/15/18 Time of Evaluation: 10:41 - Subjective Subjective: Neurology Follow-Up Note: Mrs. Kilgore was evaluated this afternoon on the acute rehab unit while eating lunch independently. She admits to feeling good and offers no complaints. She is participating in therapy as tolerated. Chart reviewed. She is for possible d/c to [facility] later this week. Denies h/a, dizziness, visual changes, chest pain, sob, cough, abd pain, n/v/d. Objective - Vital Signs/Intake and Output Vital Signs (last 24 hours): Temp Pulse Resp BP Pulse Ox 98.1 F 91 H 22 103/66 100 08/15/18 09:09 08/15/18 09:09 08/15/18 09:09 08/15/18 09:09 08/15/18 09:09 - Medications Medications: Current Medications Acetaminophen (Tylenol 325mg/10.15ml Ud) 650 mg PO Q4H PRN PRN Reason: Temperature Acetaminophen (Tylenol 325mg/10.15ml Ud) 650 mg PO Q6 PRN PRN Reason: Headache Acyclovir (Zovirax) 400 mg PO BID [facility]; Protocol Last Admin: 08/15/18 08:24 Dose: 400 mg Albuterol/Ipratropium (Duoneb 3 Mg/0.5 Mg (3 Ml) Ud) 3 ml INH RQ4 [facility] Last Admin: 08/15/18 07:39 Dose: Not Given Amlodipine Besylate (Norvasc) 5 mg PO DAILY [facility] Last Admin: 08/15/18 08:23 Dose: 5 mg Aspirin (Ecotrin) 81 mg PO DAILY [facility] Last Admin: 08/15/18 08:24 Dose: 81 mg Atorvastatin Calcium (Lipitor) 20 mg PO DAILY@2200 [facility] Last Admin: 08/14/18 21:35 Dose: 20 mg Dolutegravir Sodium (Tivicay) 50 mg PO DAILY [facility]; Protocol Last Admin: 08/15/18 08:24 Dose: 50 mg Duloxetine HCl (Cymbalta) 30 mg PO BID [facility] Last Admin: 08/15/18 08:22 Dose: 30 mg Emtricitabine/Tenofovir (Truvada 200 Mg-300 Mg) 1 tab PO DAILY [facility]; Protocol Last Admin: 08/15/18 08:24 Dose: 1 tab Guaifenesin/Dextromethorphan (Mucinex-Dm 600-30 Mg) 2 tab PO BID [facility] Last Admin: 08/15/18 08:23 Dose: 2 tab Lactic Acid (Lac-Hydrin 12% Lotion (225 G)) 1 applic TOP Q12 [facility] Last Admin: 08/15/18 08:22 Dose: 1 appl Lactobacillus Acidophilus (Bacid Acidophilus) 1 cap PO BID [facility] Last Admin: 08/15/18 08:22 Dose: 1 cap Magnesium Oxide (Mag-Ox) 400 mg PO BID [facility] Last Admin: 08/15/18 08:23 Dose: 400 mg Pantoprazole Sodium (Protonix Ec Tab) 40 mg PO DAILY [facility] Last Admin: 08/15/18 08:23 Dose: 40 mg Quetiapine Fumarate (Seroquel) 200 mg PO HS [facility] Last Admin: 08/14/18 21:35 Dose: 200 mg Senna/Docusate Sodium (Senokot S 50 Mg-8.6 Mg) 2 tab PO BID [facility] Last Admin: 08/15/18 08:23 Dose: 2 tab Trimethoprim/Sulfamethoxazole (Bactrim Ds Tab) 1 tab PO DAILY [facility]; Protocol Last Admin: 08/15/18 08:23 Dose: 1 tab - Labs Labs: 07/28/18 05:30 07/28/18 05:30 - Constitutional Appears: Well, Non-toxic, No Acute Distress - Head Exam Head Exam: ATRAUMATIC, NORMAL INSPECTION, NORMOCEPHALIC - Eye Exam Eye Exam: EOMI, Normal appearance Pupil Exam: NORMAL ACCOMODATION, PERRL - ENT Exam ENT Exam: Mucous Membranes Moist - Neck Exam Neck Exam: Full ROM, Normal Inspection - Respiratory Exam Respiratory Exam: NORMAL BREATHING PATTERN - Extremities Exam Extremities Exam: absent: Calf Tenderness, Full ROM, Pedal Edema - Back Exam Back Exam: Full ROM - Neurological Exam Neurological Exam: Alert, Awake, CN II-XII Intact. absent: Normal Gait Neuro motor strength exam: Left Upper Extremity: 5, Right Upper Extremity: 0, Left Lower Extremity: 5, Right Lower Extremity: 0 Additional comments: Pt is still slightly aphasic and repetitive in her verbiage at times and responds appropriately other times. This continues to improve. Slight right facial droop persists. Right hemiplegia persists. FROM to LUE and LLE Hyperflexia still noted b/l Sensation intact b/l No tremors - Psychiatric Exam Psychiatric exam: Normal Affect, Normal Mood - Skin Skin Exam: Normal Color Assessment and Plan (1) CVA (cerebral vascular accident) Assessment & Plan: Imaging reviewed: -CT Head (07/27/18): Limited examination due to extensive motion artifacts once again. No gross acute intracranial findings appreciated in the interval. Diffuse cerebral atrophy reiterated. Diminishing trace hemorrhage at the left external capsule noted clearly diminished in density indicating chronic state. -Continue ASA and statin while in acute rehab and upon d/c to [facility]. -Consider a repeat CT Head if there is a suspicion for increased hemorrhage and/or acute changes in pt's mental status. -Continue other treatment and management per primary team. -Pending [facility] placement. -Notify neuro team of any acute changes in pt's condition. Case discussed with Dr. Jamison Status: Acute
--- NOTE | 2018-08-15 12:16 | PCM.PSYTMC ---
Acute Rehab Team Conference - - Vital Signs: Vital Signs (Last 8 Hours): Vital Signs 08/15/18 09:09 Temperature 98.1 F Pulse Rate 91 H Respiratory 22 Rate Blood Pressure 103/66 O2 Sat by Pulse 100 Oximetry Pain: 0 - Precautions: Precautions: Fall Prevention, Aspiration, Pressure Ulcer - Medications/Other Issues: Comment: medication teaching. aspiration precautions - NTL - Consults: Comment: Attending: Dr. Moreira. Physiatry: Dr. Lucy Dunlap. ID: Dr. Velazco. Pulmonary: Dr. Stahl. Neuro: . Podiatry Consult ( complete 08/01/18) - Skin: Incision Site: none Incision: Dehiscence - Toileting: Toileting: Maximal Assistance - Bladder Management: Bladder Pattern: Incontinent Voiding Method: Diaper Bladder Management: Maximal Assistance Other Intervention:: with period of incontinence - Transfers: Transfers: Minimal Assistance - ADL's: ADL's: Maximal Assistance - Pain Management: Other Intervention:: pt usually denies pain - Patient/Family Teaching: Other Intervention:: Medication teaching, safety, dysphagia precautions - Goals/Time Frame: Comment: Falls free - Provider: Registered Nurse:: Dinah Honeycutt Physical Therapy - Bed Mobility Bed Mobility: Verbal Cues, Moderate Assistance - Transfers Wheelchair to Mat: Verbal Cues, Moderate Assistance, Maximum Assistance Sit to Stand: Verbal Cues, Moderate Assistance - Ambulation Level of Assistance: Moderate Assistance, Maximum Assistance Distance (ft.): 15 Assistive Devices: Wide base quad cane Orthoses: RUE giv-kiah. RLE dorsiflexion wrap Comment: 15 with L WBQC, close WC follow. -requires fluctuating assistance due to poor strength on R side, being easily distracted, weakness and decreased motivation. -patient able to move cane but requires assistance and cues for proper placement, patient able to step with LLE without assistance but requires assistance to weight shift. -requires assistance for RLE management as patient unable to follow cues to initiate gait and with difficulty during stance phase for stabilization/weight bearing to RLE. -it appears patient does have some increased tone at the hamstring and plantarflexors but patient remains unable to follow commands/cues in order to assess if there is any carry-over from seated tone to functional position - Stair Negotiation Stairs: Level of Assistance: Not Tested - Standing Balance Static Stand: Moderate Assistance - Pain Pain (assessed during therapy session): 0 Comment: pt denies - Insight/Carryover Insight/Carryover: Fair - Patient/Family Education Comment: therapy goals, therapy POC, safety, use of call olvera, stroke recovery, attention, gait, use of call olvera, importance of OOB, use of self-releasing seatbelt - Assessment/Plan Assessment: Ms. Kilgore appears to have increased tone in the RLE at the ankle plantarflexors and knee extensors during PROM in sitting; however, patient has impaired attention & command following and it is very difficult to assess if this available tone can be utilized during functional tasks. Patient continues to demonstrate decreased motivation with siting down during some gait trials when she is tired without warning. Patient able to ambulate 15 feet today with WBQC and appears to be self-limiting. PT recommends continued skilled PT to continue addressing skilled needs s/p CVA. PT recommends discharge to [facility] following completion of stay in acute rehab to continue addressing skilled medical and rehabilitation needs - Goals Timeframe: 7 days Goals: -negotiate 4 steps with max A with single L rail. -propel manual WC with LUE and LLE x 150 feet with supervision. -ambulate 25 feet with WBQC with mod A. -sit to/from stand with min A. -SPT with mod A with WBQC. -min A for bed/mat mobility - Provider Physical Therapist:: Leann Keita License Number:: [id number] Occupational Therapy - Arousal/Attention/Orientation Level of Consciousness: Awake, Alert Patient Orientation: Person Assessment Comment: -impaired ability to sustain/split attention. -impaired ability to attend/follow commands. -+ impulsivity. -aspiration(thin/bite size), fall, seizure & cardiac precautions - ADL/IADL Self Feeding: Supervision, Verbal Cues, Set-up Help Grooming: Verbal Cues, Set-up Help, Moderate Assistance, Maximum Assistance Bathing-Upper Ext: Verbal Cues, Set-up Help, Maximum Assistance Bathing-Lower Ext: Verbal Cues, Set-up Help, Maximum Assistance, Dependent Dressing-Upper Ext: Verbal Cues, Set-up Help, Moderate Assistance Dressing-Lower Ext: Verbal Cues, Set-up Help, Moderate Assistance, Maximum Assistance Homemaking: Not Applicable Comment: lower body dressing--long sitting in bed - Sitting Balance Static Sitting: Contact Guard Assist Dynamic Sitting: Reaches across midline, Reaches out of base of support, Reaches within base of support, Minimal Assistance Comment: unsupported at edge of bed - Transfers Wheelchair to Bed Transfers: Verbal Cues, Set-up Help, Moderate Assistance Toilet Transfers: Verbal Cues, Set-up Help, Moderate Assistance Comment: w/c<->transfer bench: mod assist and verbal cues for hand placement, weightshifting - Wheelchair Management Level of Assistance: Minimal Assistance Distance (ft.): 150 - Upper Extremity Status Right Upper Extremity Comment: PROM IS WFLS, BUT NO AROM noted 0/5 Left Upper Extremity Comment: AROM is WNLS: 4+/5 - Pain Pain (assessed during therapy session): 0 - Insight/Carryover Insight/Carryover: Fair - Patient/Family Education Comment: -adl training, transfers/mobility training. using adaptive/compensatorys strategies. -E-stim to R shoulder for subluxation prevention--increase R shoulder alignment, minimize chances of pain. -toileting program to minimize bladder/bowel incontinence. -w/c management/propulsion, attending to obstacles. -bed positioning/RUE management--laptray in w/c. - review use of call olvera, safety for fall prevention. pt with limited carryover 2' cognitive, psycho-social & physical limitations - Assessment/Plan Assessment: Pt is a 58 year old female with dx: CVA with R hemiplegia. *PRECAUTIONS: +IMPULSIVITY, falls, cardiac, w/c & bed alarms, aspiration precautions(THIN/BITE SIZE), endorse to RN after tx. Pt has not made significant improvements in last week. Pt demonstrates more infantile behavior with speech, feeding & overall self management. Pt encouraged to wash hands pre/post meals and toileting. Pt limited GREATLY by R inattention, R UE/LE hemplegia, impaired cognition(attention, judgement, problem-solving, sequencing), impaired spatial relation skills, impaired psycho-social skills, impaired sensation in RUE/RLE, impaired safety awareness, impaired postural control, + inability to shift/sustain attention. Pt will continue skilled OT to maximize overall function/sfaety in adls, transfers/mobility uisng compensatory strategies. Pt continues to be incontinent of bowel/bladder thus needs toileting program. Pt will likely need GUY to further maximize function 2' extensive limitations. - Goals Timeframe: 8 days Comment: *FEEDING: Distant S/setup finger foods/drink. *GROOMING: Minimal assist and verbal cues seated. *UPPER BODY DRESSING: Minimal & verbal cues adina-techniques. *LOWER BODY DRESSING: Moderate assist and verbal cues with assistive devices. *TOILETING:Moderate assist and verbal cues with assistive devices. *W/C MANAGEMENT/PROPULSION: propel w/c 150 feet with Superviisionand verbal cues. *RUE STRENGTH: increase to 2-/5 throughout so can use as stabilizer during self care, functional mobility. *BATHING: Max assist & verbal cues seated. *TRANSFERS:<->bed, commode, w/c & other surfaces with Min assist and verbal cues - Provider Occupational Therapist:: Shelby Beltran License Number: [id number] Speech Therapy - Consult Information Patient on Program: Yes Medical Diagnosis: CVA Treatment Diagnosis: -moderate receptive/expressive aphasia. -moderate dysarthria. -mild dysphagia - Assessment Expressive Language Impairment: Moderate Receptive Language Impairment: Moderate Problem Solving Impairment: Moderate Memory Impairment: Moderate Speech/Articulation Impairment: Moderate Dysphagia/Swallowing Impairment: Mild - Plan Assessment: Tanya Kilgore presents with 1.) moderate receptive/expressive aphasia characterized by difficulty following simple commands, answering yes/no and open-ended questions, impaired word finding, and impaired sentence formation/thought organization; 2.) moderate dysarthria characterized by impaired oral motor strength/ROM and impaired respiration for phonation resulting in impaired articulatory precision negatively impacting intelligibility at the word/phrase level; and 3.) per repeat MBS completed 07/18 03/04, mild oral dysphagia characterized by intermittently disorganized bolus formation of thin liquids and pt expectorating solid PO trials (though this appeared behavioral rather than functional in nature). Pharyngeally, pt demonstrated timely swallow initiation with appropriate pharyngeal clearance and airway protection; there was no evidence of laryngeal penetration or aspiration in this study. However, it should be noted that although the pt is known to [employer] from dysphagia tx for being impulsive and taking large/rapid sips of liquids, she ONLY took very small, single sips during this study, despite cueing for larger sips; therefore, unable to assess pt tolerance of larger volume of thin liquids in this study. Recommend diet advancement to regular solids and thin liquids via SMALL, SINGLE sips only; maintain aspiration precautions; supervision with meals to enforce pt compliance with safe swallow strategies; monitor pt for s/s aspiration/respiratory change. Pt would benefit from cont inued speech tx for improved intelligibility and communicative effectiveness and short-term dysphagia tx for diet tolerance and compensatory strategy training. Barriers to learning include cognitive/language deficits, as well as impaired pt attention and motivation to participate. Plan: Continue Dysphagia Therapy, Continue Speech/Language Therapy Frequency: 3-5 times per week Duration: 1 week Goals/Timeframe: Please see progress note dated 08/13/18 for updated goals/POC Recommendations: -Continue speech and dysphagia tx 3-5x/week. -Advance diet to regular solids and thin liquids via SMALL, SINGLE SIPS ONLY - Provider Therapist: Pamella Cole License Number: [id number] Recreational Therapy - Participation Participation: Participates in Individual and/or Group Sessions - Attendance Attendance: 3-5 times per week - Activities Leisure Activities: Cards and Games - Socialization Level of Socialization: Requires 1:1 guidance to respond, Minimal initiation of interaction to request basic needs, Minimal or no response, Socialization severely limited - Diversional Time Diversional Time: television - Assessment Assessment/Plan: Pt continues to demonstration decrease in her progress and participation during recreation therapy sessions. Pt requires max A-dependent with all leisure tasks for [id number] direction following and redirection to task. Pt presents with poor attention to task, impaired command following, impaired direction following, decrease visual awareness to the R side, and overall decrease participation and arousal level to complete any leisure tasks during recreation therapy sessions. Pt presents with poor number recognition and identification and item recognition and identification during card tasks or word finding related tasks. Pt responds to cues in sounds such as "Aww" or perseverate on commands or questions. Pt's barriers to particpation is language deficits, decrease arousal, impaired direction following, and overall poor motivation. Problems Currently Limiting Participation: expressive and receptive aphasia, R side weakness, decrease activity tolerance level, decrease leisure awareness level, decrease command following, poor insight of deficits, flat affect Goals and Time Frame: Pt will be encouraged to participate in 1:1 and group recreaton therapy sessions 3-5x week to improve object and number recognition, command following, leisure awareness level, activity tolerance level, and overall mood state. - Provider Therapist: Cely Lucio Nutrition - Current Diet Current Diet/Supplement/Feedings: Regular diet thin liquids - Appetite Percent Meal Consumed: 25-49% - Assessment/Goals/Time Frame Assessments/Goals/Time Frame: Pt at high nutritional risk. 1. Pt to consume 75- 100% of meals(partially met, continue). 2. Deter wt loss ( continue). [ End ] - Provider Provider: Malinda Ledesma Case Management - Psychosocial Assessment Support Systems: Carlo Kilgore (father) - [phone] Psychological Interventions/Needs: Patient is awake and alert, but severly cognitively impaired following her CVA. Discharge Concerns: Patient has an extensive history of multiple mental illness and psychiatric admissions. Patient's Level 1 PASRR screen for GUY admission is positive and will require further screening to testify to the impairments of her physical illness being so severe at this time that they overrule her need for psychiatric placement, making her appropriate for GUY at a SNF. Transfer to [facility] pending completion of screen and acceptance by Division of A[facility] Services [facility] ([phone]). Patient/Family Meeting: CM met with patient and rehab team. Intervention/Goal/Outcome: 1. Goal: 24hr supervision/care 2. Plan: GUY transitioning into LTC at [facility] (patient accepted) 3. have Dr. Levin complete Categorical Determination stating physical illness is so severe that patient would not be appropriate for a psychiatric facility at this time and would be appropriate to receive care in a GUY 4. fax screens and EARC-PAS to [facility] office 5. set up patient transportation to [facility] up receipt of screens - Discharge Plan Discharge Plan: Subacute care - Provider Provider: Sanjuana Gotti License Number: [id number] Rehabilitation Plan - Treatment Plan Treatment Plan: Physical Therapy, Occupational Therapy, Speech, Dietary, Patient/Family Education - Recommendation Recommendation: Physical Therapy, Occupational Therapy, Speech, Dietary, Patient/Family Education - Discharge Plan Discharge to: Subacute (dc to [facility])
--- NOTE | 2018-08-15 13:11 | CP.PCM.PN ---
Subjective - Date & Time of Evaluation Date of Evaluation: 08/15/18 Time of Evaluation: 13:00 - Subjective Subjective: no acute complaints at present , eating food Objective - Vital Signs/Intake and Output Vital Signs (last 24 hours): Temp Pulse Resp BP Pulse Ox 98.1 F 91 H 22 103/66 100 08/15/18 09:09 08/15/18 09:09 08/15/18 09:09 08/15/18 09:09 08/15/18 09:09 - Medications Medications: Current Medications Acetaminophen (Tylenol 325mg/10.15ml Ud) 650 mg PO Q4H PRN PRN Reason: Temperature Acetaminophen (Tylenol 325mg/10.15ml Ud) 650 mg PO Q6 PRN PRN Reason: Headache Acyclovir (Zovirax) 400 mg PO BID [facility]; Protocol Last Admin: 08/15/18 08:24 Dose: 400 mg Albuterol/Ipratropium (Duoneb 3 Mg/0.5 Mg (3 Ml) Ud) 3 ml INH RQ4 [facility] Last Admin: 08/15/18 07:39 Dose: Not Given Amlodipine Besylate (Norvasc) 5 mg PO DAILY [facility] Last Admin: 08/15/18 08:23 Dose: 5 mg Aspirin (Ecotrin) 81 mg PO DAILY [facility] Last Admin: 08/15/18 08:24 Dose: 81 mg Atorvastatin Calcium (Lipitor) 20 mg PO DAILY@2200 [facility] Last Admin: 08/14/18 21:35 Dose: 20 mg Dolutegravir Sodium (Tivicay) 50 mg PO DAILY [facility]; Protocol Last Admin: 08/15/18 08:24 Dose: 50 mg Duloxetine HCl (Cymbalta) 30 mg PO BID [facility] Last Admin: 08/15/18 08:22 Dose: 30 mg Emtricitabine/Tenofovir (Truvada 200 Mg-300 Mg) 1 tab PO DAILY [facility]; Protocol Last Admin: 08/15/18 08:24 Dose: 1 tab Guaifenesin/Dextromethorphan (Mucinex-Dm 600-30 Mg) 2 tab PO BID [facility] Last Admin: 08/15/18 08:23 Dose: 2 tab Lactic Acid (Lac-Hydrin 12% Lotion (225 G)) 1 applic TOP Q12 [facility] Last Admin: 08/15/18 08:22 Dose: 1 appl Lactobacillus Acidophilus (Bacid Acidophilus) 1 cap PO BID [facility] Last Admin: 08/15/18 08:22 Dose: 1 cap Magnesium Oxide (Mag-Ox) 400 mg PO BID [facility] Last Admin: 08/15/18 08:23 Dose: 400 mg Pantoprazole Sodium (Protonix Ec Tab) 40 mg PO DAILY [facility] Last Admin: 08/15/18 08:23 Dose: 40 mg Quetiapine Fumarate (Seroquel) 200 mg PO HS [facility] Last Admin: 08/14/18 21:35 Dose: 200 mg Senna/Docusate Sodium (Senokot S 50 Mg-8.6 Mg) 2 tab PO BID [facility] Last Admin: 08/15/18 08:23 Dose: 2 tab Trimethoprim/Sulfamethoxazole (Bactrim Ds Tab) 1 tab PO DAILY [facility]; Protocol Last Admin: 08/15/18 08:23 Dose: 1 tab - Labs Labs: 07/28/18 05:30 07/28/18 05:30 - Constitutional Appears: Well - Head Exam Head Exam: ATRAUMATIC, NORMAL INSPECTION, NORMOCEPHALIC - Eye Exam Eye Exam: EOMI, Normal appearance, PERRL Pupil Exam: NORMAL ACCOMODATION - ENT Exam ENT Exam: Mucous Membranes Moist, Normal Exam - Neck Exam Neck Exam: Full ROM, Normal Inspection - Respiratory Exam Respiratory Exam: Clear to Ausculation Bilateral, NORMAL BREATHING PATTERN - Cardiovascular Exam Cardiovascular Exam: REGULAR RHYTHM - GI/Abdominal Exam GI & Abdominal Exam: Soft, Normal Bowel Sounds - Rectal Exam Rectal Exam: NORMAL INSPECTION - Exam External exam: NORMAL EXTERNAL EXAM - Extremities Exam Extremities Exam: Full ROM, Normal Capillary Refill, Normal Inspection - Back Exam Back Exam: NORMAL INSPECTION - Neurological Exam Neurological Exam: Alert, Awake Neuro motor strength exam: Left Upper Extremity: 2/1, Left Lower Extremity: 2/1 - Psychiatric Exam Psychiatric exam: Normal Affect - Skin Skin Exam: Dry Assessment and Plan (1) Aspiration pneumonia Status: Acute (2) COPD (chronic obstructive pulmonary disease) Status: Acute (3) COPD with exacerbation Status: Acute - Assessment and Plan (Free Text) Assessment: left hemiplegia, status post team conference, still plan for subacute, psych follow up regarding paperwork for subacute
--- NOTE | 2018-08-15 14:50 | CP.PCM.PN ---
Subjective - Date & Time of Evaluation Date of Evaluation: 08/15/18 Time of Evaluation: 10:45 - Subjective Subjective: Patient seen and examined. No complaint. Objective - Vital Signs/Intake and Output Vital Signs (last 24 hours): Temp Pulse Resp BP Pulse Ox 98.1 F 91 H 22 103/66 100 08/15/18 09:09 08/15/18 09:09 08/15/18 09:09 08/15/18 09:09 08/15/18 09:09 - Medications Medications: Current Medications Acetaminophen (Tylenol 325mg/10.15ml Ud) 650 mg PO Q4H PRN PRN Reason: Temperature Acetaminophen (Tylenol 325mg/10.15ml Ud) 650 mg PO Q6 PRN PRN Reason: Headache Acyclovir (Zovirax) 400 mg PO BID [facility]; Protocol Last Admin: 08/15/18 08:24 Dose: 400 mg Albuterol/Ipratropium (Duoneb 3 Mg/0.5 Mg (3 Ml) Ud) 3 ml INH RQ4 [facility] Last Admin: 08/15/18 07:39 Dose: Not Given Amlodipine Besylate (Norvasc) 5 mg PO DAILY [facility] Last Admin: 08/15/18 08:23 Dose: 5 mg Aspirin (Ecotrin) 81 mg PO DAILY [facility] Last Admin: 08/15/18 08:24 Dose: 81 mg Atorvastatin Calcium (Lipitor) 20 mg PO DAILY@2200 [facility] Last Admin: 08/14/18 21:35 Dose: 20 mg Dolutegravir Sodium (Tivicay) 50 mg PO DAILY [facility]; Protocol Last Admin: 08/15/18 08:24 Dose: 50 mg Duloxetine HCl (Cymbalta) 30 mg PO BID [facility] Last Admin: 08/15/18 08:22 Dose: 30 mg Emtricitabine/Tenofovir (Truvada 200 Mg-300 Mg) 1 tab PO DAILY [facility]; Protocol Last Admin: 08/15/18 08:24 Dose: 1 tab Guaifenesin/Dextromethorphan (Mucinex-Dm 600-30 Mg) 2 tab PO BID [facility] Last Admin: 08/15/18 08:23 Dose: 2 tab Lactic Acid (Lac-Hydrin 12% Lotion (225 G)) 1 applic TOP Q12 [facility] Last Admin: 08/15/18 08:22 Dose: 1 appl Lactobacillus Acidophilus (Bacid Acidophilus) 1 cap PO BID [facility] Last Admin: 08/15/18 08:22 Dose: 1 cap Magnesium Oxide (Mag-Ox) 400 mg PO BID [facility] Last Admin: 08/15/18 08:23 Dose: 400 mg Pantoprazole Sodium (Protonix Ec Tab) 40 mg PO DAILY [facility] Last Admin: 08/15/18 08:23 Dose: 40 mg Quetiapine Fumarate (Seroquel) 200 mg PO HS [facility] Last Admin: 08/14/18 21:35 Dose: 200 mg Senna/Docusate Sodium (Senokot S 50 Mg-8.6 Mg) 2 tab PO BID [facility] Last Admin: 08/15/18 08:23 Dose: 2 tab Trimethoprim/Sulfamethoxazole (Bactrim Ds Tab) 1 tab PO DAILY [facility]; Protocol Last Admin: 08/15/18 08:23 Dose: 1 tab - Labs Labs: 07/28/18 05:30 07/28/18 05:30 - Constitutional Appears: No Acute Distress - Head Exam Head Exam: ATRAUMATIC - Eye Exam Eye Exam: absent: Scleral icterus - ENT Exam ENT Exam: Mucous Membranes Moist - Neck Exam Neck Exam: absent: Meningismus - Respiratory Exam Respiratory Exam: absent: Rales, Rhonchi, Wheezes - Cardiovascular Exam Cardiovascular Exam: REGULAR RHYTHM, +S1, +S2 - GI/Abdominal Exam GI & Abdominal Exam: Soft. absent: Tenderness - Rectal Exam Rectal Exam: Deferred - Neurological Exam Neurological Exam: Alert, Oriented x3 - Psychiatric Exam Psychiatric exam: Flat Affect - Skin Skin Exam: Dry, Intact Assessment and Plan - Assessment and Plan (Free Text) Assessment: 58 yo female with history of HIV, drug abuse and Bipolar DO presented with AMS and was found to have acute ischemic stroke with right sided weakness. Patient also had sepsis secondary to pneumonia and flu. She was managed with Levaquin and Vancomycin and Tamiflu. 1. Ischemic Stroke with Right Hemiparesis on statin and ASA doing well with PT/OT 2. Community Acquired Pneumonia improved with 14 day course of IV Levaquin and Vancomycin Duoneb Q4H prn 3. HIV HAART resumed (Tivicay 50mg daily and Truvada 200mg-300mg daily) CD4 = 135 Screen for opportunistic infections continue prophylaxis with Acyclovir and Bactrim Dr Velazco on ID consult 4. Chronic hepatitis C stable 5. Bipolar Disorder/Depression/Paranoia/Personality Disorder continue Cymbalta and Seroquel 6. DVT prophylaxis venodyne boots while in bed
[2018-08-16] MEDS: Albuterol-Ipratrop 3 mg / 0.5 (3 ml) UD INH SCH ×6 (05:00→22:59)
[2018-08-16] MEDS: Emtricitabine-Tenofovir 200 mg-300 mg Tab PO SCH (08:05)
[2018-08-16] MEDS: guaiFENesin-DM 600-30 mg ER Tab PO SCH ×2 (08:05→16:50)
[2018-08-16] MEDS: Lactobacillus Acidophilus 500 MU Cap PO SCH ×2 (08:05→16:50)
[2018-08-16] MEDS: Tmp-Smz 800 mg-160 mg DS Tab PO SCH (08:06)
[2018-08-16] MEDS: Magnesium Oxide 400 mg Tab UD PO SCH ×2 (08:06→16:50)
[2018-08-16] MEDS: Pantoprazole 40 mg EC Tab PO SCH (08:07)
[2018-08-16] MEDS: Docusate-Senna 50 mg-8.6 mg Tab PO SCH ×2 (09:10→16:51)
[2018-08-17] MEDS: Albuterol-Ipratrop 3 mg / 0.5 (3 ml) UD INH SCH ×5 (04:03→19:46)
[2018-08-17] MEDS: Emtricitabine-Tenofovir 200 mg-300 mg Tab PO SCH (08:13)
[2018-08-17] MEDS: Pantoprazole 40 mg EC Tab PO SCH (08:13)
[2018-08-17] MEDS: Docusate-Senna 50 mg-8.6 mg Tab PO SCH ×2 (08:14→17:26)
[2018-08-17] MEDS: Magnesium Oxide 400 mg Tab UD PO SCH ×2 (08:15→17:26)
[2018-08-17] MEDS: Tmp-Smz 800 mg-160 mg DS Tab PO SCH (08:19)
[2018-08-17] MEDS: guaiFENesin-DM 600-30 mg ER Tab PO SCH ×2 (08:20→17:00)
[2018-08-17] MEDS: Lactobacillus Acidophilus 500 MU Cap PO SCH ×2 (08:23→17:25)
--- NOTE | 2018-08-17 14:33 | CP.PCM.PN ---
Subjective - Date & Time of Evaluation Date of Evaluation: 08/17/18 Time of Evaluation: 11:00 - Subjective Subjective: patient sitting in wheelchair, eating no complaints of pain Objective - Vital Signs/Intake and Output Vital Signs (last 24 hours): Temp Pulse Resp BP Pulse Ox 97.6 F 88 19 124/76 98 08/17/18 08:43 08/17/18 08:43 08/17/18 08:43 08/17/18 08:43 08/17/18 08:43 - Medications Medications: Current Medications Acetaminophen (Tylenol 325mg/10.15ml Ud) 650 mg PO Q4H PRN PRN Reason: Temperature Acetaminophen (Tylenol 325mg/10.15ml Ud) 650 mg PO Q6 PRN PRN Reason: Headache Acyclovir (Zovirax) 400 mg PO BID [facility]; Protocol Last Admin: 08/17/18 08:14 Dose: 400 mg Albuterol/Ipratropium (Duoneb 3 Mg/0.5 Mg (3 Ml) Ud) 3 ml INH RQ4 [facility] Last Admin: 08/17/18 11:31 Dose: Not Given Amlodipine Besylate (Norvasc) 5 mg PO DAILY [facility] Last Admin: 08/17/18 08:19 Dose: 5 mg Aspirin (Ecotrin) 81 mg PO DAILY [facility] Last Admin: 08/17/18 08:13 Dose: 81 mg Atorvastatin Calcium (Lipitor) 20 mg PO DAILY@2200 [facility] Last Admin: 08/16/18 22:02 Dose: 20 mg Dolutegravir Sodium (Tivicay) 50 mg PO DAILY [facility]; Protocol Last Admin: 08/17/18 08:20 Dose: 50 mg Duloxetine HCl (Cymbalta) 30 mg PO BID [facility] Last Admin: 08/17/18 08:20 Dose: 30 mg Emtricitabine/Tenofovir (Truvada 200 Mg-300 Mg) 1 tab PO DAILY [facility]; Protocol Last Admin: 08/17/18 08:13 Dose: 1 tab Guaifenesin/Dextromethorphan (Mucinex-Dm 600-30 Mg) 2 tab PO BID [facility] Last Admin: 08/17/18 08:20 Dose: 2 tab Lactic Acid (Lac-Hydrin 12% Lotion (225 G)) 1 applic TOP Q12 [facility] Last Admin: 08/17/18 08:13 Dose: 1 appl Lactobacillus Acidophilus (Bacid Acidophilus) 1 cap PO BID [facility] Last Admin: 08/17/18 08:23 Dose: 1 cap Magnesium Oxide (Mag-Ox) 400 mg PO BID [facility] Last Admin: 08/17/18 08:15 Dose: 400 mg Pantoprazole Sodium (Protonix Ec Tab) 40 mg PO DAILY [facility] Last Admin: 08/17/18 08:13 Dose: 40 mg Quetiapine Fumarate (Seroquel) 200 mg PO HS [facility] Last Admin: 08/16/18 22:02 Dose: 200 mg Senna/Docusate Sodium (Senokot S 50 Mg-8.6 Mg) 2 tab PO BID [facility] Last Admin: 08/17/18 08:14 Dose: 2 tab Trimethoprim/Sulfamethoxazole (Bactrim Ds Tab) 1 tab PO DAILY [facility]; Protocol Last Admin: 08/17/18 08:19 Dose: 1 tab - Labs Labs: 07/28/18 05:30 07/28/18 05:30 - Constitutional Appears: Well - Head Exam Head Exam: ATRAUMATIC, NORMAL INSPECTION, NORMOCEPHALIC - Eye Exam Eye Exam: EOMI, Normal appearance, PERRL Pupil Exam: NORMAL ACCOMODATION, PERRL - ENT Exam ENT Exam: Mucous Membranes Moist, Normal Exam - Neck Exam Neck Exam: Full ROM, Normal Inspection - Respiratory Exam Respiratory Exam: Clear to Ausculation Bilateral, NORMAL BREATHING PATTERN - Cardiovascular Exam Cardiovascular Exam: REGULAR RHYTHM - GI/Abdominal Exam GI & Abdominal Exam: Soft, Normal Bowel Sounds - Rectal Exam Rectal Exam: NORMAL INSPECTION - Exam External exam: NORMAL EXTERNAL EXAM - Extremities Exam Extremities Exam: Full ROM, Normal Inspection - Back Exam Back Exam: NORMAL INSPECTION - Neurological Exam Neurological Exam: Alert, Awake Neuro motor strength exam: Left Upper Extremity: 2/1, Left Lower Extremity: 2/1 - Psychiatric Exam Psychiatric exam: Normal Affect - Skin Skin Exam: Normal Color Assessment and Plan (1) Aspiration pneumonia Status: Acute (2) COPD (chronic obstructive pulmonary disease) Status: Acute (3) COPD with exacerbation Status: Acute - Assessment and Plan (Free Text) Assessment: left hemiplegia, continue with physical, occupational therapy and speech . Monitor swallowing, Psych follow up. Subacute rehab for patient
--- NOTE | 2018-08-17 15:32 | CP.PCM.PN ---
Subjective - Date & Time of Evaluation Date of Evaluation: 08/17/18 Time of Evaluation: 14:00 - Subjective Subjective: Patient seen and examined. Claimed she was doing alright. Right limbs remained flaccid. Objective - Vital Signs/Intake and Output Vital Signs (last 24 hours): Temp Pulse Resp BP Pulse Ox 97.6 F 88 19 124/76 98 08/17/18 08:43 08/17/18 08:43 08/17/18 08:43 08/17/18 08:43 08/17/18 08:43 - Medications Medications: Current Medications Acetaminophen (Tylenol 325mg/10.15ml Ud) 650 mg PO Q4H PRN PRN Reason: Temperature Acetaminophen (Tylenol 325mg/10.15ml Ud) 650 mg PO Q6 PRN PRN Reason: Headache Acyclovir (Zovirax) 400 mg PO BID [facility]; Protocol Last Admin: 08/17/18 08:14 Dose: 400 mg Albuterol/Ipratropium (Duoneb 3 Mg/0.5 Mg (3 Ml) Ud) 3 ml INH RQ4 [facility] Last Admin: 08/17/18 11:31 Dose: Not Given Amlodipine Besylate (Norvasc) 5 mg PO DAILY [facility] Last Admin: 08/17/18 08:19 Dose: 5 mg Aspirin (Ecotrin) 81 mg PO DAILY [facility] Last Admin: 08/17/18 08:13 Dose: 81 mg Atorvastatin Calcium (Lipitor) 20 mg PO DAILY@2200 [facility] Last Admin: 08/16/18 22:02 Dose: 20 mg Dolutegravir Sodium (Tivicay) 50 mg PO DAILY [facility]; Protocol Last Admin: 08/17/18 08:20 Dose: 50 mg Duloxetine HCl (Cymbalta) 30 mg PO BID [facility] Last Admin: 08/17/18 08:20 Dose: 30 mg Emtricitabine/Tenofovir (Truvada 200 Mg-300 Mg) 1 tab PO DAILY [facility]; Protocol Last Admin: 08/17/18 08:13 Dose: 1 tab Guaifenesin/Dextromethorphan (Mucinex-Dm 600-30 Mg) 2 tab PO BID [facility] Last Admin: 08/17/18 08:20 Dose: 2 tab Lactic Acid (Lac-Hydrin 12% Lotion (225 G)) 1 applic TOP Q12 [facility] Last Admin: 08/17/18 08:13 Dose: 1 appl Lactobacillus Acidophilus (Bacid Acidophilus) 1 cap PO BID [facility] Last Admin: 08/17/18 08:23 Dose: 1 cap Magnesium Oxide (Mag-Ox) 400 mg PO BID [facility] Last Admin: 08/17/18 08:15 Dose: 400 mg Pantoprazole Sodium (Protonix Ec Tab) 40 mg PO DAILY [facility] Last Admin: 08/17/18 08:13 Dose: 40 mg Quetiapine Fumarate (Seroquel) 200 mg PO HS [facility] Last Admin: 08/16/18 22:02 Dose: 200 mg Senna/Docusate Sodium (Senokot S 50 Mg-8.6 Mg) 2 tab PO BID [facility] Last Admin: 08/17/18 08:14 Dose: 2 tab Trimethoprim/Sulfamethoxazole (Bactrim Ds Tab) 1 tab PO DAILY [facility]; Protocol Last Admin: 08/17/18 08:19 Dose: 1 tab - Labs Labs: 07/28/18 05:30 07/28/18 05:30 - Constitutional Appears: No Acute Distress - Head Exam Head Exam: ATRAUMATIC - Eye Exam Eye Exam: absent: Scleral icterus - ENT Exam ENT Exam: Mucous Membranes Moist - Neck Exam Neck Exam: absent: Meningismus - Respiratory Exam Respiratory Exam: absent: Rales, Rhonchi, Wheezes, Respiratory Distress - Cardiovascular Exam Cardiovascular Exam: REGULAR RHYTHM, +S1, +S2 - GI/Abdominal Exam GI & Abdominal Exam: Soft. absent: Tenderness - Rectal Exam Rectal Exam: Deferred - Back Exam Back Exam: absent: Full ROM (right limbs flaccid) - Neurological Exam Neurological Exam: Alert - Psychiatric Exam Psychiatric exam: Normal Affect - Skin Skin Exam: Dry, Intact Assessment and Plan - Assessment and Plan (Free Text) Assessment: 58 yo female with history of HIV, drug abuse and Bipolar DO presented with AMS and was found to have acute ischemic stroke with right sided weakness. Patient also had sepsis secondary to pneumonia and flu. She was managed with Levaquin and Vancomycin and Tamiflu. 1. Ischemic Stroke with Right Hemiparesis on statin and ASA continue PT/OT 2. Community Acquired Pneumonia completed 14 day course of IV Levaquin and Vancomycin Duoneb Q4H prn 3. HIV HAART resumed (Tivicay 50mg daily and Truvada 200mg-300mg daily) CD4 = 135 Screen for opportunistic infections continue prophylaxis with Bactrim Acyclovir to continue indefinitely as per Dr Velazco because of suspicion of HSV encephalitis on admission 4. Chronic hepatitis C stable 5. Bipolar Disorder/Depression/Paranoia/Personality Disorder continue Cymbalta and Seroquel 6. DVT prophylaxis venodyne boots while in bed
[2018-08-18] MEDS: Albuterol-Ipratrop 3 mg / 0.5 (3 ml) UD INH SCH ×6 (01:00→19:01)
[2018-08-18] MEDS: Emtricitabine-Tenofovir 200 mg-300 mg Tab PO SCH (08:56)
[2018-08-18] MEDS: Magnesium Oxide 400 mg Tab UD PO SCH ×2 (08:56→17:02)
[2018-08-18] MEDS: guaiFENesin-DM 600-30 mg ER Tab PO SCH ×2 (08:56→17:02)
[2018-08-18] MEDS: Lactobacillus Acidophilus 500 MU Cap PO SCH ×2 (08:57→17:01)
[2018-08-18] MEDS: Pantoprazole 40 mg EC Tab PO SCH (08:57)
[2018-08-18] MEDS: Docusate-Senna 50 mg-8.6 mg Tab PO SCH ×2 (08:57→17:02)
[2018-08-18] MEDS: Tmp-Smz 800 mg-160 mg DS Tab PO SCH (08:57)
[2018-08-19] MEDS: Albuterol-Ipratrop 3 mg / 0.5 (3 ml) UD INH SCH ×7 (00:06→23:00)
[2018-08-19] MEDS: Emtricitabine-Tenofovir 200 mg-300 mg Tab PO SCH (09:16)
[2018-08-19] MEDS: Pantoprazole 40 mg EC Tab PO SCH (09:16)
[2018-08-19] MEDS: guaiFENesin-DM 600-30 mg ER Tab PO SCH ×2 (09:16→17:01)
[2018-08-19] MEDS: Lactobacillus Acidophilus 500 MU Cap PO SCH ×2 (09:16→17:01)
[2018-08-19] MEDS: Tmp-Smz 800 mg-160 mg DS Tab PO SCH (09:16)
[2018-08-19] MEDS: Docusate-Senna 50 mg-8.6 mg Tab PO SCH ×2 (09:16→17:01)
[2018-08-19] MEDS: Magnesium Oxide 400 mg Tab UD PO SCH ×2 (09:16→17:01)
[2018-08-20] MEDS: Albuterol-Ipratrop 3 mg / 0.5 (3 ml) UD INH SCH ×5 (04:20→23:20)
--- NOTE | 2018-08-20 08:07 | CP.PCM.CON ---
History of Present Illness - History of Present Illness History of Present Illness: Psychiatry consult note CC: "I'm okay." HPI: 58 yo female w/ h/o bipolar disorder, admitted to acute rehab s/p CVA. Patient currently A + O x self. She denies acute depression/anxiety/AH/VH/SI/HI. Patient is unable to provide significant history and appears to have significant cognitive deficits s/p CVA. PPHx: Multiple past psychiatric admissions for substance abuse and bipolar disorder and history of prior suicide attempts. Currently on Seroquel and Cymbalta. PMH: HIV, HCV, polysubstance abuse, Asthma, HTN, CVA, Herpes Allergies: PCN Social: History of benzo, opioid/cocaine abuse; lived w/ parents; unemployed. Impression: 58 yo female w/ h/o Bipolar Disorder, now with Major Neurocognitive Disorder s/p CVA. Patient is unable to care for herself at this time due to physical and cognitive deficits. -Continue Seroquel and Cymbalta -No acute psychiatric admission indicated at this time -PASSR Level 2 completed Past Patient History - Infectious Disease Hx of Infectious Diseases: None - Past Medical History & Family History Past Medical History?: Yes - Past Social History Smoking Status: Light Smoker < 10 Cigarettes Daily - CARDIAC Hx Hypercholesterolemia: Yes Hx Hypertension: Yes Other/Comment: ELEVATED TROPONIN - PULMONARY Hx Asthma: Yes Hx Chronic Obstructive Pulmonary Disease (COPD): Yes Hx Pneumonia: Yes - NEUROLOGICAL HX Cerebrovascular Accident: Yes Hx Seizures: Yes - HEENT Hx HEENT Problems: No - RENAL Hx Chronic Kidney Disease: No Other/Comment: H/O JOE - ENDOCRINE/METABOLIC Hx Diabetes Mellitus Type 2: No - HEMATOLOGICAL/ONCOLOGICAL Hx AIDS: Yes Hx Anemia: No Hx Hepatitis C: Yes Hx Human Immunodeficiency Virus (HIV): Yes Hx Sickle Cell Disease: No - INTEGUMENTARY Hx Dermatological Problems: No - MUSCULOSKELETAL/RHEUMATOLOGICAL Hx Musculoskeletal Disorders: No Hx Falls: No Hx Rhabdomyolysis: Yes - GASTROINTESTINAL Hx Gastrointestinal Disorders: No - GENITOURINARY/GYNECOLOGICAL Hx Incontinence: Yes (NEW ONSET) Hx Sexually Transmitted Disorders: No (Patient denied) - PSYCHIATRIC Hx Bipolar Disorder: Yes Hx Depression: Yes Hx Substance Use: Yes - SURGICAL HISTORY Hx Tonsillectomy: Yes - ANESTHESIA Hx Anesthesia: Yes Hx Anesthesia Reactions: No Hx Malignant Hyperthermia: No Meds Allergies/Adverse Reactions: Allergies Allergy/AdvReac Type Severity Reaction Status Date / Time Penicillins Allergy pt reports Verified 07/03/18 08:00 seizures - Medications Medications: Current Medications Acetaminophen (Tylenol 325mg/10.15ml Ud) 650 mg PO Q4H PRN PRN Reason: Temperature Acetaminophen (Tylenol 325mg/10.15ml Ud) 650 mg PO Q6 PRN PRN Reason: Headache Acyclovir (Zovirax) 400 mg PO BID [facility]; Protocol Last Admin: 08/19/18 17:01 Dose: 400 mg Albuterol/Ipratropium (Duoneb 3 Mg/0.5 Mg (3 Ml) Ud) 3 ml INH RQ4 [facility] Last Admin: 08/20/18 04:20 Dose: Not Given Amlodipine Besylate (Norvasc) 5 mg PO DAILY [facility] Last Admin: 08/19/18 09:16 Dose: 5 mg Aspirin (Ecotrin) 81 mg PO DAILY [facility] Last Admin: 08/19/18 09:16 Dose: 81 mg Atorvastatin Calcium (Lipitor) 20 mg PO DAILY@2200 [facility] Last Admin: 08/19/18 21:03 Dose: 20 mg Dolutegravir Sodium (Tivicay) 50 mg PO DAILY [facility]; Protocol Last Admin: 08/19/18 09:16 Dose: 50 mg Duloxetine HCl (Cymbalta) 30 mg PO BID [facility] Last Admin: 08/19/18 17:01 Dose: 30 mg Emtricitabine/Tenofovir (Truvada 200 Mg-300 Mg) 1 tab PO DAILY [facility]; Protocol Last Admin: 08/19/18 09:16 Dose: 1 tab Guaifenesin/Dextromethorphan (Mucinex-Dm 600-30 Mg) 2 tab PO BID [facility] Last Admin: 08/19/18 17:01 Dose: 2 tab Lactic Acid (Lac-Hydrin 12% Lotion (225 G)) 1 applic TOP Q12 [facility] Last Admin: 08/19/18 21:03 Dose: 1 appl Lactobacillus Acidophilus (Bacid Acidophilus) 1 cap PO BID [facility] Last Admin: 08/19/18 17:01 Dose: 1 cap Magnesium Oxide (Mag-Ox) 400 mg PO BID [facility] Last Admin: 08/19/18 17:01 Dose: 400 mg Pantoprazole Sodium (Protonix Ec Tab) 40 mg PO DAILY [facility] Last Admin: 08/19/18 09:16 Dose: 40 mg Quetiapine Fumarate (Seroquel) 200 mg PO HS [facility] Last Admin: 08/19/18 21:03 Dose: 200 mg Senna/Docusate Sodium (Senokot S 50 Mg-8.6 Mg) 2 tab PO BID [facility] Last Admin: 08/19/18 17:01 Dose: 2 tab Trimethoprim/Sulfamethoxazole (Bactrim Ds Tab) 1 tab PO DAILY [facility]; Protocol Last Admin: 08/19/18 09:16 Dose: 1 tab Results - Vital Signs Recent Vital Signs: Last Vital Signs Temp 97.9 F 08/19/18 20:26 Pulse 70 08/19/18 20:26 Resp 20 08/19/18 20:26 BP 121/70 08/19/18 20:26 Pulse Ox 98 08/19/18 20:26 - Labs Result Diagrams: 07/28/18 05:30 07/28/18 05:30
[2018-08-20] MEDS: Lactobacillus Acidophilus 500 MU Cap PO SCH ×2 (09:21→16:52)
[2018-08-20] MEDS: Docusate-Senna 50 mg-8.6 mg Tab PO SCH ×2 (09:21→16:52)
[2018-08-20] MEDS: Tmp-Smz 800 mg-160 mg DS Tab PO SCH (09:21)
[2018-08-20] MEDS: guaiFENesin-DM 600-30 mg ER Tab PO SCH ×2 (09:21→16:52)
[2018-08-20] MEDS: Emtricitabine-Tenofovir 200 mg-300 mg Tab PO SCH (09:22)
[2018-08-20] MEDS: Magnesium Oxide 400 mg Tab UD PO SCH ×2 (09:22→16:52)
[2018-08-20] MEDS: Pantoprazole 40 mg EC Tab PO SCH (09:22)
--- NOTE | 2018-08-20 16:14 | CP.PCM.PN ---
Subjective - Date & Time of Evaluation Date of Evaluation: 08/20/18 Time of Evaluation: 15:00 - Subjective Subjective: Patient seen and examined. Denied any complaint. Objective - Vital Signs/Intake and Output Vital Signs (last 24 hours): Temp Pulse Resp BP Pulse Ox 97.5 F L 90 22 124/71 97 08/20/18 09:38 08/20/18 09:38 08/20/18 09:38 08/20/18 09:38 08/20/18 09:38 - Medications Medications: Current Medications Acetaminophen (Tylenol 325mg/10.15ml Ud) 650 mg PO Q4H PRN PRN Reason: Temperature Acetaminophen (Tylenol 325mg/10.15ml Ud) 650 mg PO Q6 PRN PRN Reason: Headache Acyclovir (Zovirax) 400 mg PO BID [facility]; Protocol Last Admin: 08/20/18 09:21 Dose: 400 mg Albuterol/Ipratropium (Duoneb 3 Mg/0.5 Mg (3 Ml) Ud) 3 ml INH RQ4 [facility] Last Admin: 08/20/18 15:42 Dose: Not Given Amlodipine Besylate (Norvasc) 5 mg PO DAILY [facility] Last Admin: 08/20/18 09:22 Dose: 5 mg Aspirin (Ecotrin) 81 mg PO DAILY [facility] Last Admin: 08/20/18 09:21 Dose: 81 mg Atorvastatin Calcium (Lipitor) 20 mg PO DAILY@2200 [facility] Last Admin: 08/19/18 21:03 Dose: 20 mg Dolutegravir Sodium (Tivicay) 50 mg PO DAILY [facility]; Protocol Last Admin: 08/20/18 09:21 Dose: 50 mg Duloxetine HCl (Cymbalta) 30 mg PO BID [facility] Last Admin: 08/20/18 09:22 Dose: 30 mg Emtricitabine/Tenofovir (Truvada 200 Mg-300 Mg) 1 tab PO DAILY [facility]; Protocol Last Admin: 08/20/18 09:22 Dose: 1 tab Guaifenesin/Dextromethorphan (Mucinex-Dm 600-30 Mg) 2 tab PO BID [facility] Last Admin: 08/20/18 09:21 Dose: 2 tab Lactic Acid (Lac-Hydrin 12% Lotion (225 G)) 1 applic TOP Q12 [facility] Last Admin: 08/20/18 09:20 Dose: 1 appl Lactobacillus Acidophilus (Bacid Acidophilus) 1 cap PO BID [facility] Last Admin: 08/20/18 09:21 Dose: 1 cap Magnesium Oxide (Mag-Ox) 400 mg PO BID [facility] Last Admin: 08/20/18 09:22 Dose: 400 mg Pantoprazole Sodium (Protonix Ec Tab) 40 mg PO DAILY [facility] Last Admin: 08/20/18 09:22 Dose: 40 mg Quetiapine Fumarate (Seroquel) 200 mg PO HS [facility] Last Admin: 08/19/18 21:03 Dose: 200 mg Senna/Docusate Sodium (Senokot S 50 Mg-8.6 Mg) 2 tab PO BID [facility] Last Admin: 08/20/18 09:21 Dose: 2 tab Trimethoprim/Sulfamethoxazole (Bactrim Ds Tab) 1 tab PO DAILY [facility]; Protocol Last Admin: 08/20/18 09:21 Dose: 1 tab - Labs Labs: 07/28/18 05:30 07/28/18 05:30 - Constitutional Appears: No Acute Distress - Head Exam Head Exam: ATRAUMATIC - Eye Exam Eye Exam: absent: Scleral icterus - ENT Exam ENT Exam: Mucous Membranes Moist - Neck Exam Neck Exam: absent: Meningismus - Respiratory Exam Respiratory Exam: absent: Rales, Rhonchi, Wheezes, Respiratory Distress - Cardiovascular Exam Cardiovascular Exam: REGULAR RHYTHM, +S1, +S2 - GI/Abdominal Exam GI & Abdominal Exam: Soft. absent: Tenderness - Rectal Exam Rectal Exam: Deferred - Extremities Exam Extremities Exam: absent: Full ROM (right side remained flaccid) - Neurological Exam Neurological Exam: Alert, Oriented x3 - Psychiatric Exam Psychiatric exam: Normal Affect - Skin Skin Exam: Dry, Intact Assessment and Plan - Assessment and Plan (Free Text) Assessment: 58 yo female with history of HIV, drug abuse and Bipolar DO presented with AMS and was found to have acute ischemic stroke with right sided weakness. Patient also had sepsis secondary to pneumonia and flu. She was managed with Levaquin and Vancomycin and Tamiflu. 1. Ischemic Stroke with Right Hemiparesis on statin and ASA continue PT/OT 2. Community Acquired Pneumonia resolved 3. HIV HAART resumed (Tivicay 50mg daily and Truvada 200mg-300mg daily) CD4 = 135 Screen for opportunistic infections continue prophylaxis with Bactrim Acyclovir to continue indefinitely as per Dr Velazco as prophylaxis for HSV encephalitis 4. Chronic hepatitis C stable 5. Bipolar Disorder/Depression/Paranoia/Personality Disorder continue Cymbalta and Seroquel 6. DVT prophylaxis venodyne boots while in bed
[2018-08-21] MEDS: Albuterol-Ipratrop 3 mg / 0.5 (3 ml) UD INH SCH ×6 (04:06→23:31)
[2018-08-21] MEDS: Lactobacillus Acidophilus 500 MU Cap PO SCH ×2 (08:08→17:37)
[2018-08-21] MEDS: Pantoprazole 40 mg EC Tab PO SCH (08:09)
[2018-08-21] MEDS: Tmp-Smz 800 mg-160 mg DS Tab PO SCH (08:09)
[2018-08-21] MEDS: Emtricitabine-Tenofovir 200 mg-300 mg Tab PO SCH (08:09)
[2018-08-21] MEDS: guaiFENesin-DM 600-30 mg ER Tab PO SCH ×2 (08:10→17:38)
[2018-08-21] MEDS: Magnesium Oxide 400 mg Tab UD PO SCH ×2 (08:12→17:38)
[2018-08-21] MEDS: Docusate-Senna 50 mg-8.6 mg Tab PO SCH ×2 (08:13→17:38)
--- NOTE | 2018-08-21 16:38 | CP.PCM.PN ---
Subjective - Date & Time of Evaluation Date of Evaluation: 08/21/18 Time of Evaluation: 16:37 - Subjective Subjective: Neurology Follow-Up Note: Mrs. Kilgore was evaluated this afternoon on the acute rehab unit. She admits to feeling good and offers no complaints. She is participating in therapy as tolerated. Chart reviewed. She is still pending d/c to [facility]. Denies h/a, dizziness, visual changes, chest pain, sob, cough, abd pain, n/v/d. Objective - Vital Signs/Intake and Output Vital Signs (last 24 hours): Temp Pulse Resp BP Pulse Ox 97.7 F 75 18 110/74 97 08/21/18 07:51 08/21/18 08:11 08/21/18 07:51 08/21/18 08:11 08/21/18 07:51 - Medications Medications: Current Medications Acetaminophen (Tylenol 325mg/10.15ml Ud) 650 mg PO Q4H PRN PRN Reason: Temperature Acetaminophen (Tylenol 325mg/10.15ml Ud) 650 mg PO Q6 PRN PRN Reason: Headache Acyclovir (Zovirax) 400 mg PO BID [facility]; Protocol Last Admin: 08/21/18 08:10 Dose: 400 mg Albuterol/Ipratropium (Duoneb 3 Mg/0.5 Mg (3 Ml) Ud) 3 ml INH RQ4 [facility] Last Admin: 08/21/18 15:43 Dose: 3 ml Amlodipine Besylate (Norvasc) 5 mg PO DAILY [facility] Last Admin: 08/21/18 08:11 Dose: 5 mg Aspirin (Ecotrin) 81 mg PO DAILY [facility] Last Admin: 08/21/18 08:11 Dose: 81 mg Atorvastatin Calcium (Lipitor) 20 mg PO DAILY@2200 [facility] Last Admin: 08/20/18 21:42 Dose: 20 mg Dolutegravir Sodium (Tivicay) 50 mg PO DAILY [facility]; Protocol Last Admin: 08/21/18 08:10 Dose: 50 mg Duloxetine HCl (Cymbalta) 30 mg PO BID [facility] Last Admin: 08/21/18 08:10 Dose: 30 mg Emtricitabine/Tenofovir (Truvada 200 Mg-300 Mg) 1 tab PO DAILY [facility]; Protocol Last Admin: 08/21/18 08:09 Dose: 1 tab Guaifenesin/Dextromethorphan (Mucinex-Dm 600-30 Mg) 2 tab PO BID [facility] Last Admin: 08/21/18 08:10 Dose: 2 tab Lactic Acid (Lac-Hydrin 12% Lotion (225 G)) 1 applic TOP Q12 [facility] Last Admin: 08/21/18 08:09 Dose: 1 appl Lactobacillus Acidophilus (Bacid Acidophilus) 1 cap PO BID [facility] Last Admin: 08/21/18 08:08 Dose: 1 cap Magnesium Oxide (Mag-Ox) 400 mg PO BID [facility] Last Admin: 08/21/18 08:12 Dose: 400 mg Pantoprazole Sodium (Protonix Ec Tab) 40 mg PO DAILY [facility] Last Admin: 08/21/18 08:09 Dose: 40 mg Quetiapine Fumarate (Seroquel) 200 mg PO HS [facility] Last Admin: 08/20/18 21:42 Dose: 200 mg Senna/Docusate Sodium (Senokot S 50 Mg-8.6 Mg) 2 tab PO BID [facility] Last Admin: 08/21/18 08:13 Dose: 2 tab Trimethoprim/Sulfamethoxazole (Bactrim Ds Tab) 1 tab PO DAILY [facility]; Protocol Last Admin: 08/21/18 08:09 Dose: 1 tab - Labs Labs: 07/28/18 05:30 07/28/18 05:30 - Constitutional Appears: Well, Non-toxic, No Acute Distress - Head Exam Head Exam: ATRAUMATIC, NORMAL INSPECTION, NORMOCEPHALIC - Eye Exam Eye Exam: EOMI, Normal appearance, PERRL Pupil Exam: NORMAL ACCOMODATION, PERRL - ENT Exam ENT Exam: Mucous Membranes Moist - Neck Exam Neck Exam: Full ROM, Normal Inspection - Respiratory Exam Respiratory Exam: NORMAL BREATHING PATTERN - Extremities Exam Extremities Exam: absent: Calf Tenderness, Full ROM, Pedal Edema Additional comments: right side hemiplegia - Back Exam Back Exam: Full ROM - Neurological Exam Neurological Exam: Alert, Awake, CN II-XII Intact. absent: Reflexes Normal Neuro motor strength exam: Left Upper Extremity: 5, Right Upper Extremity: 0, Left Lower Extremity: 5, Right Lower Extremity: 0 Additional comments: Still slightly aphasic and repetitive in her verbiage at times and responds appr opriately other times. Slight right facial droop persists. Right hemiplegia persists. FROM to LUE and LLE Hyperflexia still noted b/l but improving since last time I saw her. Sensation intact b/l No tremors - Psychiatric Exam Psychiatric exam: Normal Affect, Normal Mood - Skin Skin Exam: Normal Color Assessment and Plan (1) CVA (cerebral vascular accident) Assessment & Plan: Imaging reviewed: -CT Head (07/27/18): Limited examination due to extensive motion artifacts once again. No gross acute intracranial findings appreciated in the interval. Diffuse cerebral atrophy reiterated. Diminishing trace hemorrhage at the left external capsule noted clearly diminished in density indicating chronic state. -Continue ASA and statin while in acute rehab and upon d/c to [facility]. -Consider a repeat CT Head if there is a suspicion for increased hemorrhage and/or acute changes in pt's mental status. -Continue other treatment and management per primary team. -Pending [facility] placement. -Notify neuro team of any acute changes in pt's condition. Case discussed with Dr. Dennis Status: Acute
--- NOTE | 2018-08-21 19:26 | CP.PCM.PN ---
Subjective - Date & Time of Evaluation Date of Evaluation: 08/19/18 Time of Evaluation: 13:00 - Subjective Subjective: no acute complaints at present Objective - Vital Signs/Intake and Output Vital Signs (last 24 hours): Temp Pulse Resp BP Pulse Ox 97.7 F 75 18 110/74 97 08/21/18 07:51 08/21/18 08:11 08/21/18 07:51 08/21/18 08:11 08/21/18 07:51 - Medications Medications: Current Medications Acetaminophen (Tylenol 325mg/10.15ml Ud) 650 mg PO Q4H PRN PRN Reason: Temperature Acetaminophen (Tylenol 325mg/10.15ml Ud) 650 mg PO Q6 PRN PRN Reason: Headache Acyclovir (Zovirax) 400 mg PO BID [facility]; Protocol Last Admin: 08/21/18 17:37 Dose: 400 mg Albuterol/Ipratropium (Duoneb 3 Mg/0.5 Mg (3 Ml) Ud) 3 ml INH RQ4 [facility] Last Admin: 08/21/18 15:43 Dose: 3 ml Amlodipine Besylate (Norvasc) 5 mg PO DAILY [facility] Last Admin: 08/21/18 08:11 Dose: 5 mg Aspirin (Ecotrin) 81 mg PO DAILY [facility] Last Admin: 08/21/18 08:11 Dose: 81 mg Atorvastatin Calcium (Lipitor) 20 mg PO DAILY@2200 [facility] Last Admin: 08/20/18 21:42 Dose: 20 mg Dolutegravir Sodium (Tivicay) 50 mg PO DAILY [facility]; Protocol Last Admin: 08/21/18 08:10 Dose: 50 mg Duloxetine HCl (Cymbalta) 30 mg PO BID [facility] Last Admin: 08/21/18 17:37 Dose: 30 mg Emtricitabine/Tenofovir (Truvada 200 Mg-300 Mg) 1 tab PO DAILY [facility]; Protocol Last Admin: 08/21/18 08:09 Dose: 1 tab Guaifenesin/Dextromethorphan (Mucinex-Dm 600-30 Mg) 2 tab PO BID [facility] Last Admin: 08/21/18 17:38 Dose: 2 tab Lactic Acid (Lac-Hydrin 12% Lotion (225 G)) 1 applic TOP Q12 [facility] Last Admin: 08/21/18 08:09 Dose: 1 appl Lactobacillus Acidophilus (Bacid Acidophilus) 1 cap PO BID [facility] Last Admin: 08/21/18 17:37 Dose: 1 cap Magnesium Oxide (Mag-Ox) 400 mg PO BID [facility] Last Admin: 08/21/18 17:38 Dose: 400 mg Pantoprazole Sodium (Protonix Ec Tab) 40 mg PO DAILY [facility] Last Admin: 08/21/18 08:09 Dose: 40 mg Quetiapine Fumarate (Seroquel) 200 mg PO HS [facility] Last Admin: 08/20/18 21:42 Dose: 200 mg Senna/Docusate Sodium (Senokot S 50 Mg-8.6 Mg) 2 tab PO BID [facility] Last Admin: 08/21/18 17:38 Dose: 2 tab Trimethoprim/Sulfamethoxazole (Bactrim Ds Tab) 1 tab PO DAILY [facility]; Protocol Last Admin: 08/21/18 08:09 Dose: 1 tab - Labs Labs: 07/28/18 05:30 07/28/18 05:30 - Constitutional Appears: Well - Head Exam Head Exam: ATRAUMATIC, NORMAL INSPECTION, NORMOCEPHALIC - Eye Exam Eye Exam: EOMI, Normal appearance Pupil Exam: NORMAL ACCOMODATION, PERRL - ENT Exam ENT Exam: Mucous Membranes Moist, Normal Exam - Neck Exam Neck Exam: Normal Inspection - Respiratory Exam Respiratory Exam: Clear to Ausculation Bilateral, NORMAL BREATHING PATTERN - Cardiovascular Exam Cardiovascular Exam: REGULAR RHYTHM - GI/Abdominal Exam GI & Abdominal Exam: Normal Bowel Sounds - Rectal Exam Rectal Exam: NORMAL INSPECTION - Exam Speculum exam: NORMAL SPECULUM EXAM - Extremities Exam Extremities Exam: Full ROM, Normal Capillary Refill, Normal Inspection - Back Exam Back Exam: NORMAL INSPECTION - Neurological Exam Neurological Exam: Alert, Awake Neuro motor strength exam: Right Upper Extremity: 0, Right Lower Extremity: 2/1 - Psychiatric Exam Psychiatric exam: Normal Affect - Skin Skin Exam: Dry, Normal Color Assessment and Plan (1) Aspiration pneumonia Status: Acute (2) COPD (chronic obstructive pulmonary disease) Status: Acute (3) COPD with exacerbation Status: Acute - Assessment and Plan (Free Text) Assessment: CVa, hemiplegia, plan for physical, occupational, rec and speech therapy
--- NOTE | 2018-08-21 19:30 | CP.PCM.PN ---
Subjective - Date & Time of Evaluation Date of Evaluation: 08/21/18 Time of Evaluation: 14:00 - Subjective Subjective: no acute complaints at present Objective - Vital Signs/Intake and Output Vital Signs (last 24 hours): Temp Pulse Resp BP Pulse Ox 97.7 F 75 18 110/74 97 08/21/18 07:51 08/21/18 08:11 08/21/18 07:51 08/21/18 08:11 08/21/18 07:51 - Medications Medications: Current Medications Acetaminophen (Tylenol 325mg/10.15ml Ud) 650 mg PO Q4H PRN PRN Reason: Temperature Acetaminophen (Tylenol 325mg/10.15ml Ud) 650 mg PO Q6 PRN PRN Reason: Headache Acyclovir (Zovirax) 400 mg PO BID [facility]; Protocol Last Admin: 08/21/18 17:37 Dose: 400 mg Albuterol/Ipratropium (Duoneb 3 Mg/0.5 Mg (3 Ml) Ud) 3 ml INH RQ4 [facility] Last Admin: 08/21/18 15:43 Dose: 3 ml Amlodipine Besylate (Norvasc) 5 mg PO DAILY [facility] Last Admin: 08/21/18 08:11 Dose: 5 mg Aspirin (Ecotrin) 81 mg PO DAILY [facility] Last Admin: 08/21/18 08:11 Dose: 81 mg Atorvastatin Calcium (Lipitor) 20 mg PO DAILY@2200 [facility] Last Admin: 08/20/18 21:42 Dose: 20 mg Dolutegravir Sodium (Tivicay) 50 mg PO DAILY [facility]; Protocol Last Admin: 08/21/18 08:10 Dose: 50 mg Duloxetine HCl (Cymbalta) 30 mg PO BID [facility] Last Admin: 08/21/18 17:37 Dose: 30 mg Emtricitabine/Tenofovir (Truvada 200 Mg-300 Mg) 1 tab PO DAILY [facility]; Protocol Last Admin: 08/21/18 08:09 Dose: 1 tab Guaifenesin/Dextromethorphan (Mucinex-Dm 600-30 Mg) 2 tab PO BID [facility] Last Admin: 08/21/18 17:38 Dose: 2 tab Lactic Acid (Lac-Hydrin 12% Lotion (225 G)) 1 applic TOP Q12 [facility] Last Admin: 08/21/18 08:09 Dose: 1 appl Lactobacillus Acidophilus (Bacid Acidophilus) 1 cap PO BID [facility] Last Admin: 08/21/18 17:37 Dose: 1 cap Magnesium Oxide (Mag-Ox) 400 mg PO BID [facility] Last Admin: 08/21/18 17:38 Dose: 400 mg Pantoprazole Sodium (Protonix Ec Tab) 40 mg PO DAILY [facility] Last Admin: 08/21/18 08:09 Dose: 40 mg Quetiapine Fumarate (Seroquel) 200 mg PO HS [facility] Last Admin: 08/20/18 21:42 Dose: 200 mg Senna/Docusate Sodium (Senokot S 50 Mg-8.6 Mg) 2 tab PO BID [facility] Last Admin: 08/21/18 17:38 Dose: 2 tab Trimethoprim/Sulfamethoxazole (Bactrim Ds Tab) 1 tab PO DAILY [facility]; Protocol Last Admin: 08/21/18 08:09 Dose: 1 tab - Labs Labs: 07/28/18 05:30 07/28/18 05:30 - Constitutional Appears: Well - Head Exam Head Exam: ATRAUMATIC, NORMAL INSPECTION, NORMOCEPHALIC - Eye Exam Eye Exam: EOMI, Normal appearance Pupil Exam: NORMAL ACCOMODATION, PERRL - ENT Exam ENT Exam: Mucous Membranes Moist, Normal Exam - Neck Exam Neck Exam: Normal Inspection - Respiratory Exam Respiratory Exam: Clear to Ausculation Bilateral, NORMAL BREATHING PATTERN - Cardiovascular Exam Cardiovascular Exam: REGULAR RHYTHM - GI/Abdominal Exam GI & Abdominal Exam: Soft, Normal Bowel Sounds - Rectal Exam Rectal Exam: NORMAL INSPECTION - Exam External exam: NORMAL EXTERNAL EXAM - Extremities Exam Extremities Exam: Full ROM, Normal Inspection - Back Exam Back Exam: NORMAL INSPECTION - Neurological Exam Neurological Exam: Alert, Awake Neuro motor strength exam: Right Upper Extremity: 0, Right Lower Extremity: 2/1 - Psychiatric Exam Psychiatric exam: Flat Affect - Skin Skin Exam: Normal Color Assessment and Plan (1) Aspiration pneumonia Status: Acute (2) COPD (chronic obstructive pulmonary disease) Status: Acute (3) COPD with exacerbation Status: Acute - Assessment and Plan (Free Text) Assessment: CVA hemiplegia, plan to continue with subacute placement, Dr Goodson filled out the level 2 form, continue with acyclovir, subacute pending
[2018-08-22] MEDS: Albuterol-Ipratrop 3 mg / 0.5 (3 ml) UD INH SCH ×3 (03:36→11:10)
[2018-08-22 08:11] VITALS: BP 110/75; PULSE 79; RESP 18; TEMP 95.5; O2SAT 99
[2018-08-22] MEDS: Lactobacillus Acidophilus 500 MU Cap PO SCH (08:13)
[2018-08-22] MEDS: Tmp-Smz 800 mg-160 mg DS Tab PO SCH (08:13)
[2018-08-22] MEDS: Magnesium Oxide 400 mg Tab UD PO SCH (08:14)
[2018-08-22] MEDS: Pantoprazole 40 mg EC Tab PO SCH (08:15)
[2018-08-22] MEDS: guaiFENesin-DM 600-30 mg ER Tab PO SCH (08:15)
[2018-08-22] MEDS: Docusate-Senna 50 mg-8.6 mg Tab PO SCH (08:16)
[2018-08-22] MEDS: Emtricitabine-Tenofovir 200 mg-300 mg Tab PO SCH (08:16)
--- NOTE | 2018-08-22 11:31 | CP.PCM.DIS ---
Provider - Provider Date of Admission: 07/22/18 15:10 Attending physician: Will Moreira MD Consults: 07/22/18 15:48 Physiatry Consult Stat Comment: Consulting Provider: Paul Graham Consulting Physician: Paul Graham Reason for Consult: Acute CVA 07/22/18 15:52 Infectious Disease Consult Routine Comment: Consulting Provider: Doanvan Velazco Consulting Physician: Donavan Velazco Reason for Consult: HIV, Pneumonia Pulmonology Consult Routine Comment: Consulting Provider: Chad Stahl I Consulting Physician: Chad Stahl I Reason for Consult: Pneumonia 07/22/18 15:53 Neurology Consult Routine Comment: Consulting Provider: Shayne Dennis Consulting Physician: Shayne Dennis Reason for Consult: CVA 07/22/18 16:18 Case Management Referral Routine Comment: Physician Instructions: Reason For Exam: Reason for Referral: Discharge Planning 07/31/18 10:54 Podiatry Consult Routine Comment: pls do trim/ cut toe nails Consulting Provider: Singh Bull Consulting Physician: Singh Bull Reason for Consult: trim/ cut toe nails. 08/14/18 15:23 Psychiatry Consult Routine Comment: level 2 papers Consulting Provider: Marleen Clifton Consulting Physician: Marleen Clifton Reason for Consult: level 2 papers for subacute rehab 08/20/18 11:23 Psychology Consult Routine Comment: Consulting Provider: Nely Castro Consulting Physician: Nely Castro Reason for Consult: Evaluate neurocognitive function Time Spent in preparation of Discharge (in minutes): 45 Hospital Course - Lab Results Lab Results: Most Recent Lab Values WBC 6.0 K/uL (4.8-10.8) 07/28/18 05:30 RBC 4.44 Mil/uL (3.80-5.20) 07/28/18 05:30 Hgb 12.2 g/dL (12.0-16.0) 07/28/18 05:30 Hct 37.4 % (34.0-47.0) 07/28/18 05:30 MCV 84.1 fl (81.0-99.0) 07/28/18 05:30 MCH 27.6 pg (27.0-31.0) 07/28/18 05:30 MCHC 32.8 g/dL (33.0-37.0) L 07/28/18 05:30 RDW 18.2 % (11.5-14.5) H 07/28/18 05:30 Plt Count 220 K/uL (130-400) 07/28/18 05:30 MPV 8.7 fl (7.2-11.7) 07/28/18 05:30 Neut % (Auto) 68.5 % (50.0-75.0) 07/28/18 05:30 Lymph % (Auto) 24.3 % (20.0-40.0) 07/28/18 05:30 Miller % (Auto) 6.2 % (0.0-10.0) 07/28/18 05:30 Eos % (Auto) 0.6 % (0.0-4.0) 07/28/18 05:30 Baso % (Auto) 0.4 % (0.0-2.0) 07/28/18 05:30 Neut # (Auto) 4.1 K/uL (1.8-7.0) 07/28/18 05:30 Lymph # (Auto) 1.5 K/uL (1.0-4.3) 07/28/18 05:30 Miller # (Auto) 0.4 K/uL (0.0-0.8) 07/28/18 05:30 Eos # (Auto) 0.0 K/uL (0.0-0.7) 07/28/18 05:30 Baso # (Auto) 0.0 K/uL (0.0-0.2) 07/28/18 05:30 Sodium 140 mmol/l (132-148) 07/28/18 05:30 Potassium 3.8 MMOL/L (3.6-5.0) 07/28/18 05:30 Chloride 108 mmol/L (98-107) H 07/28/18 05:30 Carbon Dioxide 28 mmol/L (22-30) 07/28/18 05:30 Anion Gap 8 (10-20) L 07/28/18 05:30 BUN 29 mg/dl (7-17) H 07/28/18 05:30 Creatinine 0.9 mg/dl (0.7-1.2) 07/28/18 05:30 Est GFR ( Amer) > 60 07/28/18 05:30 Est GFR (Non-Af Amer) > 60 07/28/18 05:30 POC Glucose (mg/dL) 98 mg/dL (65-110) 07/22/18 17:21 Random Glucose 77 mg/dL (65-105) 07/28/18 05:30 Calcium 8.7 mg/dL (8.4-10.2) 07/28/18 05:30 Total Bilirubin 0.5 mg/dl (0.2-1.3) 07/28/18 05:30 AST 41 U/L (14-36) H 07/28/18 05:30 ALT 40 U/L (9-52) 07/28/18 05:30 Alkaline Phosphatase 70 U/L (38-126) 07/28/18 05:30 Total Protein 7.0 G/DL (6.3-8.2) 07/28/18 05:30 Albumin 3.4 g/dL (3.5-5.0) L 07/28/18 05:30 Globulin 3.6 gm/dL (2.2-3.9) 07/28/18 05:30 Albumin/Globulin Ratio 0.9 (1.0-2.1) L 07/28/18 05:30 Vancomycin Trough 6.7 ug/mL (5.0-10.0) 07/27/18 15:20 Absolute Lymphs (Flow) 1579 Cells/mcL (850-3900) 08/03/18 05:25 % CD4 Cells 26 Percent (30-61) L 08/03/18 05:25 Absolute CD4 Count 413 Cells/mcL (490-1740) L 08/03/18 05:25 T-Help/Suppress Ratio 0.45 Ratio (0.86-5.00) L 08/03/18 05:25 % CD8 Cells 59 Percent (12-42) H 08/03/18 05:25 Absolute CD8 Count 927 Cells/mcL (180-1170) 08/03/18 05:25 HIV-1 RNA Qnt (RT-PCR) <1.30 not detected (Not Detected) 08/03/18 05:25 - Hospital Course Hospital Course: 58-year-old female with PMhx of positive HIV, Substance abuse, Asthma, bipolar disorder, Chronic Hep C was brought by EMS after being found unconscious and lethargic and found to have acute CVA with right sided weakness, Influenza A, JOE, and respiratory failure/hypoxia likely secondary to pneumonia. Influzenza treated w/tamiflu x5 days, JOE resolved, weakness from CVA persists. Pt transferred to acute rehab for continued IV antibiotics, pneumonia treatment and continued physical/occupational therapy. Patient did well with PT OT and is stable for discharge to SNF. Acute ischemic stroke CVA with R hemiparesis - MRI Brain (07/11): multifocal late acute/early subacte infarctions in L posterior parietal lobe, late acute/early subacute infarctions in L posterior parietal lobe, increased FLAIR hyperintensity in L cortical sulci (possibly subarachnoid hemorrhage, non-specific proteinaceous hyperintense CSF) - Video EEG monitoring as per Neurology, finished (Dr Dennis 07/17): VEEG showed slowing, but no seizures. - CT Head (07/17): small elliptical hemorrhage ext capsule - Neuro rec (Dr Dennis): Continue to hold Lovenox and ASA for now as most recent CT Head and Brain MRI show hemorrhagic conversion, Repeat CT Head in the morning 07/19/18 to evaluate the hemorrhage. Maintain BP control. CTA head and neck to be done nikolay; still pending renal function improvement. Continue ICU management. - Amlodipine 5mg PO daily - PT rec (07/18): sub-acute rehab for PT - Continue PT/OT Community acquired Pneumonia - Afebrile, no white count, lactate 0.9 - ID consult, Dr Velazco. consider HERMILA when feasible to r/o vegetation, clot, other - s/p Levaquin 750 mg IV advanced to Q24H, renal function improving (previously Q48H began 07/13) - S/P Vancomycin 1gm Q24H, 3 doses, vanc trough 07/17/18: 12.3 - Solumedrol 40mg IVP - Duoneb Q4H - Mucinex-DM 600-30 mg 2 tab PO BID HIV - HAART resumed (Tivicay 50mg daily and Truvada 200mg-300mg daily) - CD4 = 135 - Screen for opportunistic infections - Acyclovir 500mg Q12H and Bactrim 20 ml Q12H for prophylaxis - ID consult, Dr Velazco Chronic hepatitis C - Chronic - HCV viral load pending final result - ID consult, Dr Velazco Bipolar Disorder/Depression/Paranoia/Personality Disorder - Continue home meds: ---Cymbalta 30mg BID ---Seroquel 200 mg PO HS [facility] Discharge Exam - Head Exam Additional comments: Vitals Reviewed GEN: WDWN, alert, cooperative HEENT: NCAT, PERRL, EOMI HEART: RRR, +S1S2, NO MRG LUNG: CTAB, NO WRR ABD: soft, NT, ND, No HSM, No masses EXT: normal pedal pulses NEURO: awake, alert SKIN: warm, dry PSYCH: normal mood, normal affect Discharge Plan - Follow Up Plan Condition: GOOD Disposition: TRANSF TO SNF Instructions: Acetaminophen Overdose (DC), Acetaminophen Overdose (GEN)
--- NOTE | 2018-08-22 18:09 | CP.PCM.PN ---
Subjective - Date & Time of Evaluation Date of Evaluation: 08/22/18 Time of Evaluation: 11:00 - Subjective Subjective: no acute complaint at present Objective - Vital Signs/Intake and Output Vital Signs (last 24 hours): Temp Pulse Resp BP Pulse Ox 95.5 F L 79 18 110/75 99 08/22/18 08:10 08/22/18 08:15 08/22/18 08:10 08/22/18 08:15 08/22/18 08:10 - Labs Labs: 07/28/18 05:30 07/28/18 05:30 - Constitutional Appears: Well - Head Exam Head Exam: ATRAUMATIC, NORMAL INSPECTION, NORMOCEPHALIC - Eye Exam Eye Exam: EOMI, Normal appearance, PERRL Pupil Exam: NORMAL ACCOMODATION - ENT Exam ENT Exam: Mucous Membranes Moist - Neck Exam Neck Exam: Normal Inspection - Respiratory Exam Respiratory Exam: Clear to Ausculation Bilateral, NORMAL BREATHING PATTERN - Cardiovascular Exam Cardiovascular Exam: REGULAR RHYTHM - GI/Abdominal Exam GI & Abdominal Exam: Soft, Normal Bowel Sounds - Rectal Exam Rectal Exam: NORMAL INSPECTION - Exam External exam: NORMAL EXTERNAL EXAM - Extremities Exam Extremities Exam: Full ROM, Normal Capillary Refill, Normal Inspection - Back Exam Back Exam: NORMAL INSPECTION - Neurological Exam Neurological Exam: Alert, Awake Neuro motor strength exam: Left Upper Extremity: 0, Left Lower Extremity: 2/1 - Psychiatric Exam Psychiatric exam: Normal Affect, Normal Mood - Skin Skin Exam: Dry, Normal Color Assessment and Plan (1) Aspiration pneumonia Status: Acute (2) COPD (chronic obstructive pulmonary disease) Status: Acute (3) COPD with exacerbation Status: Acute - Assessment and Plan (Free Text) Assessment: CVa hemiplegia, plan for physical, occupational, rec therapy,speech additoinal therapy after Dc to subacute , Dc for today
== END 2018-08-22 13:45 | DRG 56 ==
LOC: H.ERHOLD 07-22 15:10 → H.TEL 07-22 15:47
PROC: F08Z1FZ Dressing Techniques Treatment using Assistive, Adaptive, Supportive or Protective Equipment (ICD-10-PCS; principal; 2018-07-22)
PROC: F08Z2FZ Grooming/Personal Hygiene Treatment using Assistive, Adaptive, Supportive or Protective Equipment (ICD-10-PCS; 2018-07-22)
PROC: F07Z9FZ Gait Training/Functional Ambulation Treatment using Assistive, Adaptive, Supportive or Protective Equipment (ICD-10-PCS; 2018-07-22)
PROC: F07L6GZ Therapeutic Exercise Treatment of Musculoskeletal System - Lower Back / Lower Extremity using Aerobic Endurance and Conditioning Equipment (ICD-10-PCS; 2018-07-22)
PROC: F07L7ZZ Manual Therapy Techniques Treatment of Musculoskeletal System - Lower Back / Lower Extremity (ICD-10-PCS; 2018-07-22)
PROC: F06Z3ZZ Aphasia Treatment (ICD-10-PCS; 2018-07-22)
DX: I69.351 Hemiplegia and hemiparesis following cerebral infarction affecting right dominant side (principal); J69.0 Pneumonitis due to inhalation of food and vomit; J44.0 Chronic obstructive pulmonary disease with (acute) lower respiratory infection; N17.9 Acute kidney failure, unspecified; B20 Human immunodeficiency virus [HIV] disease; M62.82 Rhabdomyolysis; B18.2 Chronic viral hepatitis C; E78.00 Pure hypercholesterolemia, unspecified; I69.320 Aphasia following cerebral infarction; F17.210 Nicotine dependence, cigarettes, uncomplicated; I10 Essential (primary) hypertension; Z88.0 Allergy status to penicillin; F31.9 Bipolar disorder, unspecified; L60.3 Nail dystrophy; F01.50 Vascular dementia, unspecified severity, without behavioral disturbance, psychotic disturbance, mood disturbance, and anxiety; F60.9 Personality disorder, unspecified